=== PATIENT | male | born 1950 | race Caucasian/White ===

== ENCOUNTER 2022-04-28 08:57 | Day surgery (SDC) | payer MEDICARE, SELFPAY ==
[2022-04-28] VITALS (12 sets, daily range): BP systolic 120–190; BP diastolic 61–92; PULSE 62–104; RESP 16; TEMP 36.3–37.2; O2SAT 94–100; BMI 25.8
[2022-04-28] MEDS: LACTATED RINGERS 1000 ML 1,000 ML 100 ML IV (08:00)
[2022-04-28] MEDS: CEFAZOLIN 2 GM INJ IVP (12:10)
[2022-04-28] MEDS: BUPIVACAINE 0.25% 30 ML INJECTION (12:15)
--- NOTE | 2022-04-28 13:14 | PM.GSPRC ---
Operative Note Date of procedure: 04/28/22 Type of Procedure: 1. Laparoscopic right inguinal hernia repair with mesh. Procedure Description: After discussing the risks and benefits of the procedure, the patient signed informed consent.? The operative site was marked and the patient was brought to the operating room and placed on the operating table in supine position.? Care was taken to pad the patient's pressure points.?? The patient was then intubated by anesthesia.?? The operative site was then prepped and draped in the usual sterile fashion.? A time-out was then performed. ? An infraumbilical skin incision was made with a scalpel and subcutaneous tissues were dissected with electrocautery. Anterior sheath was incised with electrocautery and rectus muscle was retracted laterally. Initially, the blunt finger dissection between the layers of abdominal wall was difficult. The space was re-examined again and it appeared that the dissection was between the posterior sheath and peritoneum. The posterior sheath was then grasped and the opening in the posterior sheath was closed with a [id number] 3-0 Vicryl stitch. The correct plane was identified and a 12 mm [employer] dissector system was introduced into the incision and advanced over the posterior sheath. Preperitoneal space was dissected with manually insufflating air under direct visualization. Once the tissues were dissected, the balloon was deflated and removed.? A laparoscopic balloon was placed into preperitoneal space and balloon was inflated. Preperitoneal space was insufflated with air. No bleeding was identified upon examination of preperitoneal space. We then placed two 5 mm ports suprapubically under direct visualization. ? The preperitoneal tissues were bluntly dissected with graspers.? The pubic bone was identified and? cleared from preperitoneal tissue.?? Inferior epigastrics on right?side were retracted towards the abdominal wall.?? Spermatic cord? was identified and dissected circumferentially.? This was done bluntly. The right direct hernia space was identified, and preperitoneal fat was incarcerated in this hernia space. The incarcerated fat was reduced. The peritoneal edge was identified, and there was no evidence of indirect inguinal hernia.??When adequate space was developed for mesh placement, a right sided Parietex? mesh was used and positioned around the spermatic cord. The mesh was tacked medially and laterally with?tacks.? Additional local anesthetic was injected directly into pre-peritoneal space. ? The space was deflated under direct visualization and mesh appeared to be still lying in a good position. The ports were then removed. Anterior sheath was then closed with a running 0-0 vicryl suture. Skin was closed with 4-0 monocryl using subcuticular stitch. Steri strips were applied over the laparoscopic?incisions. ? All counts were correct at the end of the case. Patient tolerated the procedure well and was transferred to PACU without any complications. Implants: Paritex mesh. Anesthesia: GETA Surgeon: Aaron Tolliver MD Estimated blood loss (mL): 5 Condition: stable Disposition: PACU
--- NOTE | 2022-04-28 13:22 | W.ANESCHARGE ---
Anesthesia Charges Start Date/Time Anesthesia Start Date: 04/28/22 Anesthesia Start Time: 12:00 Stop Date/Time Anesthesia Stop Date: 04/28/22 Anesthesia Stop Time: 13:21 Summary Emergency: No Extremes of Age: Over 70-CPT 58506
--- NOTE | 2022-04-28 13:39 | W.ANESCHARGE ---
Anesthesia Charges Start Date/Time Anesthesia Start Date: 04/28/22 Anesthesia Start Time: 12:00 Stop Date/Time Anesthesia Stop Date: 04/28/22 Anesthesia Stop Time: 13:21 Summary Emergency: No Extremes of Age: Over 70-CPT 17395
[2022-04-28] MEDS: HYDROCODONE-ACETAMIN 5-325 MG 1 TAB PO (14:10)
== END 2022-04-28 15:05 | disposition home or self-care (01) ==
PROVIDERS: PCP Family Medicine; Visit Provider Surgery
PROC: (CPT 49650; principal; 2022-04-28 10:15)
DX: K40.90 Unilateral inguinal hernia, without obstruction or gangrene, not specified as recurrent (principal)
CPT/HCPCS: 49650; 00840; 00860; 99100; A9270; C1781; J0330; J0690; J1100; J1170; J1885; J2405; J2704; J2710; J3010; J3490; J7120

== ENCOUNTER 2022-04-28 22:07 | Emergency (ER) | payer MEDICARE, SELFPAY ==
[2022-04-28 22:14] VITALS: BP 137/72; PULSE 71; RESP 18; TEMP 36.9; O2SAT 99; BMI 25.2
--- NOTE | 2022-04-28 22:38 | ED.GENADULT ---
HPI - General Adult General Date Seen: 04/28/22 Chief complaint: Post Op Complication Stated complaint: incision is bleeding from surgery Time Seen by Provider: 04/28/22 22:16 Source: patient and family Mode of arrival: ambulatory Limitations: no limitations History of Present Illness HPI narrative: Patient is a 72-year-old male who had a laparoscopic right inguinal hernia repair done by Dr. Tolliver today. The procedure went well but he comes back this evening with bleeding from his umbilical incision. He has three Steri-Strips that he has bled through and some gauze. He denies pain other than what is expected. He has had no fevers or chills. Related Data Home Medications Medication Instructions Recorded Confirmed aspirin 81 mg capsule 81 mg PO QDAY 03/06/22 04/28/22 atorvastatin 40 mg tablet 40 mg PO QDAY 03/06/22 04/28/22 metoprolol tartrate 25 mg tablet 25 mg PO BID 03/11/22 04/28/22 albuterol sulfate 90 mcg/actuation 2 puff inhalation Q6H PRN 04/01/22 04/28/22 aerosol inhaler naproxen 500 mg tablet 500 mg PO .PRN 04/01/22 04/28/22 nitroglycerin 0.4 mg sublingual 0.4 mg sublingual Q5M PRN 04/01/22 04/28/22 tablet Previous Rx's Medication Instructions Recorded omeprazole 40 mg capsule,delayed 40 mg PO QDAY #30 caps 04/01/22 release hydrocodone 5 mg-acetaminophen 325 1 - 2 tab PO Q6H PRN pain #30 tabs 04/28/22 mg tablet Allergies Allergy/AdvReac Type Severity Reaction Status Date / Time clarithromycin Allergy Unknown Verified 04/28/22 22:16 nickel Allergy Unknown Verified 04/28/22 22:16 Review of Systems Status of ROS: Reports: 6 or more systems reviewed and unremarkable except as noted in History and below [facility] Medical History (Updated 04/28/22 @ 22:39 by Federico Moss MD) CAD (coronary artery disease) Chest pressure Hernia Inguinal hernia Right inguinal hernia Surgical History H/O hand surgery H/O rotator cuff surgery S/P arthroscopic knee surgery S/P CABG x 1 S/P vasectomy Status post left foot surgery Social History (Updated 03/11/22 @ 11:44 by Aaron Tolliver MD) Narrative: Patient is active and does a lot of walking playing golf. 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 Smoking Status: Former smoker What tobacco products do you use: cigarettes Smoking quit date/years: >15 years ago Do you use any of these nicotine containing products: None Second hand tobacco smoke exposure: No How often do you have a drink containing alcohol: never How many standard drinks containing alcohol do you have on a typical day: 1 or 2 How often do you have six or more drinks on one occasion: Never AUDIT-C Alcohol total score: 0 Non-prescribed substance use: denies use Caffeine: Yes (3 CUPS COFFEE DAILY) Little interest or pleasure in doing things: not at all Feeling down, depressed, or hopeless: not at all Exam Narrative: Exam Narrative: On exam he has normal bowel sounds. His lower incisions remained dry. His umbilical incision has bled. I did remove his Steri-Strips and clean the area. There is minimal active bleeding. I then cleaned the area with Betadine and applied some Dermabond over the small incision. There is no further bleeding. Sterile dressing was then applied. Const: Vital Signs, click to edit/add: Vital Signs - 24 hr 04/28/22 22:14 04/28/22 22:43 04/28/22 22:44 Temperature 98.4 F 98.4 F 98.0 F Pulse Rate [Right Pulse Oximeter] 71 71 69 Respiratory Rate 18 18 18 Blood Pressure [Ri ght Upper Arm] 137/72 137/72 125/74 Pulse Oximetry 99 99 Oxygen Delivery Me thod Room Air Room Air Course Vital Signs Vital signs: Initial Vital Signs Temperature 98.4 F 04/28/22 22:14 Temperature Source Temporal Artery Scan 04/28/22 22:14 Pulse Rate 71 04/28/22 22:14 Respiratory Rate 18 04/28/22 22:14 Blood Pressure 137/72 04/28/22 22:14 Blood Pressure Mean 93 04/28/22 22:14 Blood Pressure Position Sitting 04/28/22 22:14 Pulse Oximetry 99 04/28/22 22:14 Oxygen Delivery Method 04/28/22 22:14 Vital Signs Temperature 98.4 F 04/28/22 22:14 Pulse Rate 71 04/28/22 22:14 Respiratory Rate 18 04/28/22 22:14 Blood Pressure 137/72 04/28/22 22:14 Pulse Oximetry 99 04/28/22 22:14 Oxygen Delivery Method 04/28/22 22:14 Temperature 98.0 F 04/28/22 22:44 Pulse Rate 69 04/28/22 22:44 Respiratory Rate 18 04/28/22 22:44 Blood Pressure 125/74 04/28/22 22:44 Pulse Oximetry 99 04/28/22 22:44 Oxygen Delivery Method 04/28/22 22:44 Discharge Plan Discharge Clinical Impression: Post-op bleeding Patient Disposition: Home, Self-Care Condition: Improved Additional Instructions: Keep wound clean and dry until healed. Follow-up with Dr. Tolliver as scheduled. Watch for signs of infection. Prescriptions: No Action atorvastatin 40 mg tablet 40 mg PO QDAY aspirin 81 mg capsule 81 mg PO QDAY metoprolol tartrate 25 mg tablet 25 mg PO BID naproxen 500 mg tablet 500 mg PO .PRN nitroglycerin 0.4 mg tablet, sublingual 0.4 mg sublingual Q5M PRN Rx Instructions: do not exceed 3 doses per episode albuterol sulfate 90 mcg/actuation HFA aerosol inhaler 2 puff inhalation Q6H PRN omeprazole 40 mg capsule,delayed release(DR/EC) 40 mg PO QDAY Qty: 30 5RF hydrocodone-acetaminophen 5-325 mg tablet 1 - 2 tab PO Q6H PRN (Reason: pain) Qty: 30 0RF Follow Up/Referrals: Alfred Rios MD [Primary Care Provider] - Stand Alone Forms: [employer] Info Instructions
[2022-04-28 22:43] VITALS: BP 137/72; PULSE 71; RESP 18; TEMP 36.9
[2022-04-28 22:44] VITALS: BP 125/74; PULSE 69; RESP 18; TEMP 36.7; O2SAT 99
--- OUTSIDE RECORDS SUMMARY | 2022-04-28 22:52 | XMS_ITS | Encounter Summary ---
:1950 Author Organization [facility] Address [address] [facility] [place] [address] Care Team Providers Name Role Phone Alfred Rios MD Primary Care Provider [phone] Alfred Rios MD Unavailable Anthony Ballesteros MD Unavailable Reason for Referral Consultation (Routine: Next available opening) - Pending Review Specialty Diagnoses / Procedures Referred By Contact Refer red To Contact Cardiovascular Disease Diagnoses Coronary artery disease involving [place] coronary artery of [place] heart, unspecified whether angina present Essential hypertension Dyslipidemia Anthony Ballesteros MD [address] [place] [address] Referral ID Status Reason Start Date Expiration Date Visits V isits Requested Authorized [id number] Pending 01/29/2022 01/29/2023 1 1 Review Reason for Visit Reason Comments Coronary Artery Disease Hyperlipidemia Encounter Details Date Type Department Care Team Description 01/29/2022 Office Visit Anthony Shrestha a rtery disease involving [place] coronary artery of [place] heart, unspecified whether angina present (Primary Dx); Juan C Bernal MD Essential hypertension; [facility] e [address] Dyslipidemia [address] [place] [address] [place], [place] [phone] [id number] (Work) [phone] Social History Tobacco Use Types Packs/Day Years Used Date Smoking Tobacco: Former Cigarettes 1 35 Quit : 10/22/1999 Smokeless Tobacco: Never Alcohol Use Standard Drinks/Week Comments Yes 0 (1 standard drink = 0.6 oz pure alcoho l) One beer most days. Sex Assigned at Date Recorded Male 12/31/2020 1:31 PM CDT COVID-19 Exposure Response Date Recorded In the last 10 days, have you been in contact with No / Unsu re 01/29/2022 7:59 AM CDT someone who was confirmed or suspected to have Coronavirus/COVID-19? documented as of this encounter Last Filed Vital Signs Vital Sign Reading Time Taken Comments Blood Pressure 138/72 01/29/2022 8:05 AM CDT Pulse 60 01/29/2022 8:05 AM CDT Temperature - - Respiratory Rate - - Oxygen Saturation - - Inhaled Oxygen Concentration - - Weight 72.1 kg (159 lb) 01/29/2022 8:05 AM CDT Height 167.6 cm (5' 6) 01/29/2022 8:05 AM CDT Body Mass Index 25.66 01/29/2022 8:05 AM CDT documented in this encounter Progress Notes Anthony Ballesteros MD - 01/29/2022 10:08 AM CDT Service Date: 01/29/2022 HISTORY OF PRESENT ILLNESS: Russel Billingsley, a 71-year-old man with coronary artery disease, atherosclerotic peripheral vascular disease and dyslipidemia, was seen today at your request for followup. Since last seen 1 year ago, the patient continues to experience episodes of chest heaviness that occur primarily with exertion but have occasional lyoccurred at rest. He thinks the symptoms have worsened slightly since we last saw him. We have previously evaluated his chest discomfort with stress tests, most recently in 09/2019 that showed good exercise tolerance to 10.9 METs with no ischemia and a normal ejection fraction. At the time of his last visit I also explained that even with a negative nuclear stress test, we cannot entirely exclude a lesion that might benefit from revascularization. The patient really has not tried nitroglycerin for his symptoms. PAST MEDICAL HISTORY: 1. Atherosclerotic peripheral vascular disease -- moderate narrowing in right internal carotid artery, followed by Dr. Cadet. 2. Coronary artery disease. a. Presentation with chest pain and abnormal stress test 2014. b. Bypass surgery with RIVAS graft to LAD, moderate narrowing noted in right coronary managed medically. No significant narrowing in left main or circumflex. c. Negative nuclear stress test 2019 with good exercise tolerance and no objective signs of ischemia. 3. Dyslipidemia. PHYSICAL EXAMINATION: GENERAL: Exam today demonstrates a very pleasant, cooperative and intelligent 71-year-old man. VITAL SIGNS: His blood pressure was 138/72, his heart rate 60. His height is 1.7 meters, his weight is 70 kg, BMI 25. RESPIRATORY: His lungs are clear to percussion and auscultation. CARDIOVASCULAR: Shows a normal S1 with a normal S2. There is no S3. There is no murmur, rub or click. His pulses are full throughout. MEDICATIONS: 1. Aspirin 81 daily. 2. Atorvastatin 40 daily. 3. Metoprolol 25 mg b.i.d. 4. Nitroglycerin sublingual p.r.n. LABORATORY STUDIES: His most recent LDL cholesterol 60. Most recent creatinine 1.04. ASSESSMENT: The cause for Mr. Billingsley's chest discomfort symptoms are not entirely clear. A nuclear stress test in 2019 showed no ischemia with good exercise tolerance and the patient has been free of major adverse cardiac events since then. I discussed the options of invasive diagnostic coronary and graft angiography, continued observation with no change in therapy, empiric addition of antianginal medication or a nuclear stress test. The patient would prefer not to add any more medications. His bloodpressure and lipid profiles are normal. After a long discussion today, we elected to proceed with a nuclear stress test to help make any decisions about invasive evaluation. RECOMMENDATIONS: 1. Continue present medical therapy. 2. Nuclear stress test in the near future to assess for ischemia. If significant ischemia is seen, consider angiography. If not, we will consider empiric addition of another antianginal drug such as Ranexa. 3. Plan to follow up in 1 year. We greatly appreciate the opportunity to care for your patient, Mr. Russel Billingsley. Anthony Ballesteros MD cc: Alfred Rios MD [facility] [address], [address] [place] [address] Anthony Ballesteros MD MT: garret Name: RUSSEL BILLINGSLEY MRN: [id number] Account: [id number] : 1950 Service Date: 01/29/2022 Document: [id number] Anthony Ballesteros MD - 01/29/2022 8:00 AM CDT HISTORY OF PRESENT ILLNESS: Still has chest pressure, both with and without activity. Orders this Visit: No orders of the defined types were placed in this encounter. No orders of the defined types were placed in this encounter. Medications Discontinued During This Encounter Medication Reason ??? acetaminophen 650 MG TABS Stopped by Patient No diagnosis found. CURRENT MEDICATIONS: Current Outpatient Medications Medication Sig Dispense Refill ??? albuterol (PROAIR HFA/PROVENTIL HFA/VENTOLIN HFA) 108 (90 Base) MCG/ACT inhaler Inhale 2 puffs into the lungs every 6 hours 1 Inhaler 1 ??? aspirin 81 MG chewable tablet Take 1 tablet (81 mg) by mouth daily 30 tablet 12 ??? atorvastatin (LIPITOR) 40 MG tablet Take 1 tablet (40 mg) by mouth daily 90 tablet 3 ??? metoprolol tartrate (LOPRESSOR) 25 MG tablet TAKE 1 TABLET BY MOUTH TWICE A DAY 180 tablet 2 ??? naproxen (NAPROSYN) 500 MG tablet TAKE 1 TABLET (500 MG) BY MOUTH 2 TIMES DAILY NEEDED FOR MODERATE PAIN 60 tablet 1 ??? nitroGLYcerin (NITROSTAT) 0.4 MG sublingual tablet For chest pain place 1 tablet under the tongue every 5 minutes for 3 doses. If symptoms persist 5 minutes after 1st dose call 911. 25 tablet 0 ALLERGIES Allergies Allergen Reactions ??? Nickel Rash PAST MEDICAL, SURGICAL, FAMILY, SOCIAL HISTORY: History was reviewed and updated as needed, see medical record. Review of Systems: A 12-point review of systems was completed, see medical record for detailed review of systems information. Physical Exam: Vitals: BP 138/72 Pulse 60 Ht 1.676 m (5' 6) Wt 72.1 kg (159 lb) BMI 25.66 kg/m?? Constitutional: Skin: Head: Eyes: ENT: Neck: Chest: Cardiac: Abdomen: Vascular: Extremities and Back: Neurological: ASSESSMENT: cause for symptoms still not entirely clear, but after long discussion has elected for stress test ? RECOMMENDATIONS: Stress nuclear test If significant ischemia would consider CAG graft angiogram if patient willing HISTORY OF PRESENT ILLNESS: Chest pain Orders this Visit: No orders of the defined types were placed in this encounter. No orders of the defined types were placed in this encounter. Medications Discontinued During This Encounter Medication Reason ??? acetaminophen 650 MG TABS Stopped by Patient Encounter Diagnoses Name Primary? Coronary artery disease involving [place] coronary artery of [place] heart, unspecified whether angina present Yes ??? Essential hypertension ??? Dyslipidemia CURRENT MEDICATIONS: Current Outpatient Medications Medication Sig Dispense Refill ??? albuterol (PROAIR HFA/PROVENTIL HFA/VENTOLIN HFA) 108 (90 Base) MCG/ACT inhaler Inhale 2 puffs into the lungs every 6 hours 1 Inhaler 1 ??? aspirin 81 MG chewable tablet Take 1 tablet (81 mg) by mouth daily 30 tablet 12 ??? atorvastatin (LIPITOR) 40 MG tablet Take 1 tablet (40 mg) by mouth daily 90 tablet 3 ??? metoprolol tartrate (LOPRESSOR) 25 MG tablet TAKE 1 TABLET BY MOUTH TWICE A DAY 180 tablet 2 ??? naproxen (NAPROSYN) 500 MG tablet TAKE 1 TABLET (500 MG) BY MOUTH 2 TIMES DAILY NEEDED FOR MODERATE PAIN 60 tablet 1 ??? nitroGLYcerin (NITROSTAT) 0.4 MG sublingual tablet For chest pain place 1 tablet under the tongue every 5 minutes for 3 doses. If symptoms persist 5 minutes after 1st dose call 911. 25 tablet 0 ALLERGIES Allergies Allergen Reactions ??? Nickel Rash PAST MEDICAL, SURGICAL, FAMILY, SOCIAL HISTORY: History was reviewed and updated as needed, see medical record. Review of Systems: A 12-point review of systems was completed, see medical record for detailed review of systems information. Physical Exam: Vitals: BP 138/72 Pulse 60 Ht 1.676 m (5' 6) Wt 72.1 kg (159 lb) BMI 25.66 kg/m?? Constitutional: Skin: Head: Eyes: ENT: Neck: Chest: Cardiac: Abdomen: Vascular: Extremities and Back: Neurological: ASSESSMENT: need assessment ? RECOMMENDATIONS: See above Recent Lab Results: LIPID RESULTS: Lab Results Component Value Date CHOL 135 07/03/2021 CHOL 134 05/24/2020 HDL 65 07/03/2021 HDL 62 05/24/2020 LDL 60 07/03/2021 LDL 60 05/24/2020 TRIG 51 07/03/2021 TRIG 59 05/24/2020 CHOLHDLRATIO 3.3 04/16/2015 LIVER ENZYME RESULTS: Lab Results Component Value Date AST 22 04/16/2015 ALT 31 04/16/2015 CBC RESULTS: Lab Results Component Value Date WBC 9.0 05/25/2015 RBC 4.05 (L) 05/25/2015 HGB 13.0 (L) 05/25/2015 HCT 36.5 (L) 05/25/2015 MCV 90 05/25/2015 MCH 32.1 05/25/2015 MCHC 35.6 05/25/2015 RDW 12.8 05/25/2015 PLT 175 05/25/2015 BMP RESULTS: Lab Results Component Value Date NA 138 07/03/2021 NA 139 05/24/2020 POTASSIUM 4.4 07/03/2021 POTASSIUM 4.8 05/24/2020 CHLORIDE 107 07/03/2021 CHLORIDE 108 05/24/2020 CO2 25 07/03/2021 CO2 28 05/24/2020 ANIONGAP 6 07/03/2021 ANIONGAP 3 05/24/2020 GLC 105 (H) 07/03/2021 GLC 100 (H) 05/24/2020 BUN 22 07/03/2021 BUN 18 05/24/2020 CR 1.04 07/03/2021 CR 0.99 05/24/2020 GFRESTIMATED 77 07/03/2021 GFRESTIMATED 77 05/24/2020 GFRESTBLACK 89 05/24/2020 DAJA 9.1 07/03/2021 DAJA 9.3 05/24/2020 A1C RESULTS: Lab Results Component Value Date A1C 6.0 05/23/2015 INR RESULTS: Lab Results Component Value Date INR 1.15 (H) 05/22/2015 INR 1.23 (H) 05/22/2015 We greatly appreciate the opportunity to be involved in the care of your patient, Russel Billingsley. Sincerely, Anthony Ballesteros MD? CC Referred Self, No address on file ? Recent Lab Results: LIPID RESULTS: Lab Results Component Value Date CHOL 135 07/03/2021 CHOL 134 05/24/2020 HDL 65 07/03/2021 HDL 62 05/24/2020 LDL 60 07/03/2021 LDL 60 05/24/2020 TRIG 51 07/03/2021 TRIG 59 05/24/2020 CHOLHDLRATIO 3.3 04/16/2015 LIVER ENZYME RESULTS: Lab Results Component Value Date AST 22 04/16/2015 ALT 31 04/16/2015 CBC RESULTS: Lab Results Component Value Date WBC 9.0 05/25/2015 RBC 4.05 (L) 05/25/2015 HGB 13.0 (L) 05/25/2015 HCT 36.5 (L) 05/25/2015 MCV 90 05/25/2015 MCH 32.1 05/25/2015 MCHC 35.6 05/25/2015 RDW 12.8 05/25/2015 PLT 175 05/25/2015 BMP RESULTS: Lab Results Component Value Date NA 138 07/03/2021 NA 139 05/24/2020 POTASSIUM 4.4 07/03/2021 POTASSIUM 4.8 05/24/2020 CHLORIDE 107 07/03/2021 CHLORIDE 108 05/24/2020 CO2 25 07/03/2021 CO2 28 05/24/2020 ANIONGAP 6 07/03/2021 ANIONGAP 3 05/24/2020 GLC 105 (H) 07/03/2021 GLC 100 (H) 05/24/2020 BUN 22 07/03/2021 BUN 18 05/24/2020 CR 1.04 07/03/2021 CR 0.99 05/24/2020 GFRESTIMATED 77 07/03/2021 GFRESTIMATED 77 05/24/2020 GFRESTBLACK 89 05/24/2020 DAJA 9.1 07/03/2021 DAJA 9.3 05/24/2020 A1C RESULTS: Lab Results Component Value Date A1C 6.0 05/23/2015 INR RESULTS: Lab Results Component Value Date INR 1.15 (H) 05/22/2015 INR 1.23 (H) 05/22/2015 We greatly appreciate the opportunity to be involved in the care of your patient, Russel Billingsley. SincerelAnthony johansen MD? CC Referred Self, No address on file ? documented in this encounter Plan of Treatment Scheduled Referrals Name Type Priority Associated Diagnoses Order S chedule Follow-Up with Referral Routine: Next Coronary artery Expected: Cardiology available opening disease involving 01/29 [place] coronary (Approximate ), artery of [place] Expires: heart, unspecified 3 whether angina present Essential hypertension Dyslipidemia documented as of this encounter Visit Diagnoses Diagnosis Coronary artery disease involving [place] coronary artery of [place] heart, unspecified whether angina present - Primary Essential hypertension Unspecified essential hypertension Dyslipidemia Other and unspecified hyperlipidemia documented in this encounter Additional Health Concerns Assessment Noted Time PHQ-9 Depression Total Score: 3 05/25/2020 7: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
--- OUTSIDE RECORDS SUMMARY | 2022-04-28 22:52 | XMS_ITS | Encounter Summary ---
:1950 Author Organization [place] Address [address] [place] [address] Care Team Providers Name Role Phone Alfred Rios MD Primary Care Provider [phone] Alfred Rios MD Unavailable Anthony Ballesteros MD Unavailable Encounter Details Date Type Department Care Team Description 07/03/2021 Travel Social History Tobacco Use Types Packs/Day Years Used Date Smoking Tobacco: Former Cigarettes 1 35 Quit : 10/22/1999 Smokeless Tobacco: Never Alcohol Use Standard Drinks/Week Comments Yes 0 (1 standard drink = 0.6 oz pure alcoho l) One beer most days. Sex Assigned at Date Recorded Male 12/31/2020 1:31 PM CDT COVID-19 Exposure Response Date Recorded In the last month, have you been in contact with No / Unsure 07/03/2021 8:24 AM CONFERENCE SERVICES COORDINATOR someone who was confirmed or suspected to have Coronavirus / COVID-19? documented as of this encounter Plan of Treatment Not on filedocumented as of this encounter Visit Diagnoses Not on filedocumented in this encounter Additional Health Concerns Assessment Noted Time PHQ-9 Depression Total Score: 3 05/25/2020 7:02 AM CONFERENCE SERVICES COORDINATOR documented as of this encounter Care Teams Set Up Worker Relationship Specialty Start Date End Date Alfred Rios, PCP - General Family Practice 04/18/15 Alfred Rios, Assigned PCP 09/01/20 [address] [place] [address] Anthony Ballesteros, Assigned Heart and 12/22/20 Vascular Provider [address] [place] [address] documented as of this encounter
--- OUTSIDE RECORDS SUMMARY | 2022-04-28 22:52 | XMS_ITS | Encounter Summary ---
:1950 Author Organization [place] Address Formerly [facility], [address] [facility] [place] [address] Care Team Providers Name Role Phone Alfred Rios MD Primary Care Provider [phone] Alfred Rios MD Unavailable Anthony Ballesteros MD Unavailable Reason for Visit Reason Comments Medication Refill Encounter Details Date Type Department Care Team Description 10/24/2021 Refill [facility] Alfred Rios, Medication Refill [place] [address] [place] [address] [place] [id number] (Wo rk) Social History Tobacco Use Types Packs/Day Years Used Date Smoking Tobacco: Former Cigarettes 1 35 Quit : 10/22/1999 Smokeless Tobacco: Never Alcohol Use Standard Drinks/Week Comments Yes 0 (1 standard drink = 0.6 oz pure alcoho l) One beer most days. Sex Assigned at Date Recorded Male 12/31/2020 1:31 PM CDT documented as of this encounter Miscellaneous Notes Telephone Encounter - Beba Valadez RN - 10/24/2021 2:43 PM CDT Routing refill request to provider for review/approval because: Labs out of range: CBC Labs not current: ALT, AST Outside of age range Beba Valadez, RN on 10/24/2021 at 2:44 PM documented in this encounter Plan of Treatment Not on filedocumented as of this encounter Visit Diagnoses Diagnosis Bilateral hip pain Pain in joint, pelvic region and thigh documented in this encounter Additional Health Concerns Assessment Noted Time PHQ-9 Depression Total Score: 3 05/25/2020 7:02 AM HEADLIGHT ADJUSTER documented as of this encounter Care Teams Licensed Sales Assistant Relationship Specialty Start Date End Date Alfred Rios, PCP - General Family Practice 04/18/15 Alfred Rios, Assigned PCP 09/01/20 [address] [address] [address] Anthony Ballesteros, Assigned Heart and 12/22/20 Vascular Provider [address] [place] [address] documented as of this encounter
--- OUTSIDE RECORDS SUMMARY | 2022-04-28 22:52 | XMS_ITS | Encounter Summary ---
:1950 Author Organization [place] Address [address] [place] [address] Care Team Providers Name Role Phone Alfred Rios MD Primary Care Provider [phone] Alfred Rios MD Unavailable Anthony Ballesteros MD Unavailable Encounter Details Date Type Department Care Team Description 02/10/2022 Travel Social History Tobacco Use Types Packs/Day [...] in contact with No / Unsu re 02/10/2022 7:55 AM CDT someone who was confirmed or suspected to have Coronavirus/COVID-19? documented as of this encounter Plan of Treatment Not on filedocumented as of this encounter Visit Diagnoses Not on filedocumented in this encounter Additional Health Concerns Assessment Noted Time PHQ-9 Depression Total Score: 3 05/25/2020 7:02 AM IRON GUARDRAIL INSTALLER documented as of this encounter Care Teams Revenue Investigator Relationship Specialty Start Date End Date Alfred Rios, PCP - General Family Practice 04/18/15 Alfred Rios Assigned PCP 09/01/20 [address] [place] [address] Anthony Ballesteros, Assigned Heart and 12/22/20 Vascular Provider [address] [place] [address] documented as of this encounter
--- OUTSIDE RECORDS SUMMARY | 2022-04-28 22:52 | XMS_ITS | Encounter Summary ---
:1950 Author Organization [place] Address [facility] [place] [address] Care Team Providers Name Role Phone Alfred Rios MD Primary Care Provider [phone] Alfred Rios MD Unavailable Anthony Ballesteros MD Unavailable Reason for Visit Reason Comments Medication Refill Encounter Details Date Type Department Care Team Description 11/16/2021 Refill [facility] Alfred Rios, Medication Refill [place] [address] [address] [place] [address] [place] 2017368 (Wo rk) Social History Tobacco Use Types Packs/Day Years Used Date Smoking Tobacco: Former Cigarettes 1 35 Quit : 10/22/1999 Smokeless Tobacco: Never Alcohol Use Standard Drinks/Week Comments Yes 0 (1 standard drink = 0.6 oz pure alcoho l) One beer most days. Sex Assigned at Date Recorded Male 12/31/2020 1:31 PM CDT documented as of this encounter Miscellaneous Notes Telephone Encounter - Brionna Yates RN - 11/18/2021 1:39 PM CDT Prescription approved per [facility] Refill Protocol. Brionna Yates RN, BSN [facility] documented in this encounter Plan of Treatment Not on filedocumented as of this encounter Visit Diagnoses Diagnosis Essential hypertension, benign documented in this encounter Additional Health Concerns Assessment Noted Time PHQ-9 Depression Total Score: 3 05/25/2020 7:02 AM ASSEMBLER INSTALLER GENERAL documented as of this encounter Care Teams Inclusion Internship Relationship Specialty Start Date End Date Alferd Rios, PCP - General Family Practice 04/18/15 Alfred Rios, Assigned PCP 09/01/20 [address] [address] [address] Anthony Ballesteros, Assigned Heart and 12/22/20 Vascular Provider [address] [place] [id number] documented as of this encounter
--- OUTSIDE RECORDS SUMMARY | 2022-04-28 22:52 | XMS_ITS | Encounter Summary ---
:1950 Author Organization [place] Address [address] [place] [address] Care Team Providers Name Role Phone Alfred Rios MD Primary Care Provider [phone] Alfred Rios MD Unavailable Anthony Ballesteros MD Unavailable Encounter Details Date Type Department Care Team Description 01/29/2022 Travel Social History Tobacco Use Types Packs/Day [...] Depression Total Score: 3 05/25/2020 7:02 AM CYBER SECURITY ANALYST documented as of this encounter Care Teams Patrol Supervisor Relationship Specialty Start Date End Date Alfred Rios, PCP - General Family Practice 04/18/15 Alfred Rios Assigned PCP 09/01/20 [address] [place] [address] Anthony Ballesteros, Assigned Heart and 12/22/20 Vascular Provider [address] [place] [address] documented as of this encounter
--- OUTSIDE RECORDS SUMMARY | 2022-04-28 22:52 | XMS_ITS | Encounter Summary ---
:1950 Author Organization [place] Address [address] [place] [address] Care Team Providers Name Role Phone Alfred Rios MD Primary Care Provider [phone] Alfred Rios MD Unavailable Anthony Ballesteros MD Unavailable Encounter Details Date Type Department Care Team Description 01/26/2022 Travel Social History Tobacco Use Types Packs/Day [...] in contact with No / Unsu re 01/26/2022 8:32 PM CDT someone who was confirmed or suspected to have Coronavirus/COVID-19? documented as of this encounter Plan of Treatment Not on filedocumented as of this encounter Visit Diagnoses Not on filedocumented in this encounter Additional Health Concerns Assessment Noted Time PHQ-9 Depression Total Score: 3 05/25/2020 7:02 AM MATERIAL ENGINEER documented as of this encounter Care Teams Drop Forger Relationship Specialty Start Date End Date Alfred Rios, PCP - General Family Practice 04/18/15 Alfred Rios Assigned PCP 09/01/20 [address] [place] [address] Anthony Ballesteros, Assigned Heart and 12/22/20 Vascular Provider [address] [place] [address] documented as of this encounter
--- OUTSIDE RECORDS SUMMARY | 2022-04-28 22:52 | XMS_ITS | Encounter Summary ---
:1950 Author Organization [place] Address [address] [facility] [place] [address] Care Team Providers Name Role Phone Alfred Rios MD Primary Care Provider [phone] Alfred Rios MD Unavailable Anthony Ballesteros MD Unavailable Reason for Visit Reason Comments HCC refresh needed Encounter Details Date Type Department Care Team Description 03/23/2022 Office Visit [facility] Mariana Ivey [facility] Zaida RODRIGUEZ CNP ENCOUNTER--DISREGARD [address] (Primary Dx) [place] [facility] [place] [address] [phone] Social History Tobacco Use Types Packs/Day Years Used Date Smoking Tobacco: Former Cigarettes 1 35 Quit : 10/22/1999 Smokeless Tobacco: Never Alcohol Use Standard Drinks/Week Comments Yes 0 (1 standard drink = 0.6 oz pure alcoho l) One beer most days. Sex Assigned at Date Recorded Male 12/31/2020 1:31 PM CDT documented as of this encounter Progress Notes Mariana Ivey APRN CNP - 03/23/2022 1:00 PM CDT Patient cancelled appointment Mariana Ivey CNP documented in this encounter Plan of Treatment Not on filedocumented as of this encounter Visit Diagnoses Diagnosis ERRONEOUS ENCOUNTER--DISREGARD - Primary documented in this encounter Additional Health Concerns Assessment Noted Time PHQ-9 Depression Total Score: 3 05/25/2020 7:02 AM COLLETER documented as of this encounter Care Teams Pleating Machine Operator Relationship Specialty Start Date End Date Alfred Rios, PCP - General Family Practice 04/18/15 Alfred Rios, Assigned PCP 09/01/20 [address] [address] [id number] Anthony Ballesteros, Assigned Heart and 12/22/20 Vascular Provider [address] [place] [address] documented as of this encounter
--- OUTSIDE RECORDS SUMMARY | 2022-04-28 22:52 | XMS_ITS | Encounter Summary ---
:1950 Author Organization [place] Address [facility] [place] [address] Care Team Providers Name Role Phone Alfred Rios MD Primary Care Provider [phone] Alfred Rios MD Unavailable Anthony Ballesteros MD Unavailable Reason for Visit Reason Comments Medication Refill Encounter Details Date Type Department Care Team Description 03/08/[address] [facility] Alfred Rios, Medication Refill [place] [address] [address] [place] [address] [place] [id number] (Wo rk) Social History Tobacco Use Types Packs/Day Years Used Date Smoking Tobacco: Former Cigarettes 1 35 Quit : 10/22/1999 Smokeless Tobacco: Never Alcohol Use Standard Drinks/Week Comments Yes 0 (1 standard drink = 0.6 oz pure alcoho l) One beer most days. Sex Assigned at Date Recorded Male 12/31/2020 1:31 PM CDT documented as of this encounter Miscellaneous Notes Telephone Encounter - Taylor Iglesias RN - 03/10/2021 12:24 PM CDT Routing refill request to provider for review/approval because: Failed protocol for naproxen - due for ALT, AST, cbc and due to age documented in this encounter Plan of Treatment Not on filedocumented as of this encounter Visit Diagnoses Diagnosis Bilateral hip pain Pain in joint, pelvic region and thigh documented in this encounter Additional Health Concerns Assessment Noted Time PHQ-9 Depression Total Score: 3 05/25/2020 7:02 AM VERTICA ARCHITECT documented as of this encounter Care Teams Unemployment Inspector Relationship Specialty Start Date End Date Alfred Rios, PCP - General Family Practice 04/18/15 Alfred Rios, Assigned PCP 09/01/20 [address] [address] [address] Anthony Ballesteros, Assigned Heart and 12/22/20 Vascular Provider [address] [place] [id number] documented as of this encounter
--- OUTSIDE RECORDS SUMMARY | 2022-04-28 22:52 | XMS_ITS | Encounter Summary ---
:1950 Author Organization [place] Address [facility] [place] [address] Care Team Providers Name Role Phone Alfred Rios MD Primary Care Provider [phone] Alfred Rios MD Unavailable Anthony Ballesteros MD Unavailable Reason for Visit Reason Comments Medication Refill Encounter Details Date Type Department Care Team Description 03/01/[address] [facility] Nikki Duque, Medication Refill [place] [address] [address] [place] [address] [place] [id number] (Wo rk) Social History Tobacco Use Types [...] have Coronavirus/COVID-19? documented as of this encounter Miscellaneous Notes Telephone Encounter - Beba Valadez RN - 03/02/2022 11:38 AM CDT Last prescribed 4 months ago. Prescription approved per [facility] Refill Protocol. 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
--- OUTSIDE RECORDS SUMMARY | 2022-04-28 22:52 | XMS_ITS | Encounter Summary ---
:1950 Author Organization [place] Address [address] [place] [address] Care Team Providers Name Role Phone Alfred Rios MD Primary Care Provider [phone] Alfred Rios MD Unavailable Anthony Ballesteros MD Unavailable Reason for Visit Diagnostic Imaging NM (Routine) - Closed Specialty Diagnoses / Procedures Referred By Contact Refer red To Contact Diagnoses Coronary artery disease involving barrow coronary artery of barrow heart, unspecified whether angina present Essential hypertension Dyslipidemia Anthony Ballesteros MD Procedures NM MPI w Lexiscan NM Adenosine stress test (nuc card) [address] [place] [address] Referral ID Status Reason Start Date Expiration Date Visits Requ ested Visits Authorized [id number] Closed 01/29/2022 01/29/2023 4 4 Encounter Details Date Type Department Care Team Description 02/10/2022 Hospital Encounter [facility] Anthony Ballesteros MD [address] [place], [place] [address] [place] [address] [phone] (Wo rk) Social History Tobacco Use Types [...] have Coronavirus/COVID-19? documented as of this encounter Medications at Time of Discharge Medication Sig Dispensed Refills Start Date End Date albuterol (PROAIR INHALE 2 PUFFS INTO 8.5 g 1 2 HFA/PROVENTIL THE LUNGS EVERY 6 HFA/VENTOLIN HFA) 108 (90 HOURS Base) MCG/ACT inhalerIndications: Mild intermittent asthma without complication aspirin 81 MG chewable Take 1 tablet (81 30 tablet 12 2015 tabletIndications: mg) by mouth daily Chronic ischemic heart disease atorvastatin (LIPITOR) 40 Take 1 tablet (40 90 tablet 3 MG tabletIndications: mg) by mouth daily Hyperlipidemia with target LDL less than 100 metoprolol tartrate TAKE 1 TABLET BY 180 tablet 2 11/18/2021 (LOPRESSOR) 25 MG MOUTH TWICE A DAY tabletIndications: Essential hypertension, benign naproxen (NAPROSYN) 500 TAKE 1 TABLET (500 60 tablet 1 10/10 MG tabletIndications: MG) BY MOUTH 2 Bilateral hip pain TIMES DAILY NEEDED FOR MODERATE PAIN nitroGLYcerin (NITROSTAT) For chest pain 25 tablet 0 202103/02/[address] 1 tablet tabletIndications: under the tongue Coronary artery disease every 5 minutes for involving coronary bypass 3 doses. If graft of barrow heart symptoms persist 5 without angina pectoris minutes after 1st dose call 911. documented as of this encounter Plan of Treatment Not on filedocumented as of this encounter Procedures Procedure Name Priority Date/Time Associated Diagnosis Comme nts NM MPI WITH Routine 02/10/2022 1:38 PM Coronary artery Result s for this LEXISCAN CDT disease involving procedure are in barrow coronary the results artery of barrow section. heart, unspecified whether angina present Essential hypertension Dyslipidemia documented in this encounter Results NM MPI w Lexiscan (02/10/2022 1:38 PM CDT) [facility] gist Method Time Signature Target HR 148 RADIANT Baseline 172 RADIANT Systolic BP Baseline 78 RADIANT Diastolic BP Last Stress 155 RADIANT Systolic BP Last Stress 65 RADIANT Diastolic BP Baseline HR 63 bpm RADIANT Max HR 93 RADIANT Max Predicted HR 63 % RADIANT Rate Pressure 14,415.0 RADIANT Product BP 68 mmHg RADIANT Left Ventricular 70 % RADIANT EF Anatomical Region Laterality Modality Chest Nuclear Medicine Specimen (Source) Anatomical Location Collection Method / Collectio n Time Received Time / Laterality Volume Narrative 02/10/2022 3:38 PM CDT ?The nuclear stress test is negative for inducible myocardial ischemia or infarction. The left ventricular ejec tion fraction at rest is 68%. ??The left ventricular ejection fraction at st ress is 70%. Left ventricular function is normal. ?A prior study was conducted on 09/11/2019. ??This study has no change when compared with the prior study. Stress Findings A pharmacologic stress test was performe d following a supine Lexiscan protocol using 0.4 mg of intravenous regadenoson administered over 10 seconds under the supervision of Dr. Garcia. The patient reported dyspnea during the stress test. ECG Baseline electrocardiogram demonstrates sinus rhythm. The stress electrocardiogram is negative for inducible ischemic EKG changes. Isotope Administration Nuclear imaging was accomplished using a one day protocol with 32.4 mCi of technetium tetrofosmin injected at the completion of Lexiscan infusion on 02/10/2022 and 11 mCi of technetium tetrofosmin at rest on 02/10/2022. Nuclear Study Quality The quality assurance group leader images demonstrate a pical thinning. Final image quality is satisfactory. Perfusion Defect The nuclear stress test is negative for inducible myocardial ischemia or infarction. The left ventricular ejection fraction at rest is 68%. The left ventricular ejection fraction at stress is 70%. Left ventricular function is normal. Nuclear Prior Study A prior study was conducted on 09/11/2019. This study has no change when compared with the prior study. Perfusion Scoring Stress Summed Score: 0 Percent Normal: 0.00% The left ventricular perfusion is normal . Perfusion Scoring Resting Summed Score: 0 Percent Normal: 0.00% The left ventricular perfusion is normal . Perfusion Scores: SRS Score: 0 Percentag e Abnormal: 0.00% Perfusion Scores: SSS Score: 0 Percentag e Abnormal: 0.00% Perfusion Scores: SDS Score: 0 Percentag e Abnormal: 0.00% Wall Motion Score Index: 1.00 The left ventricular wall motion is norm al. Anthony Ballesteros MD IMG NM ORDERABLES documented in this encounter Visit Diagnoses Not on filedocumented in this encounter Additional Health Concerns Assessment Noted Time PHQ-9 Depression Total Score: 3 05/25/2020 7:02 AM REEL MAN documented as of this encounter Care Teams Seed Sales Manager Relationship Specialty Start Date End Date Alfred Rios, PCP - General Family Practice 04/18/15 Alfred Rios, Assigned PCP 09/01/20 [address] [address] [id number] Anthony Ballesteros, Assigned Heart and 12/22/20 Vascular Provider [address] [place] [address] documented as of this encounter
--- OUTSIDE RECORDS SUMMARY | 2022-04-28 22:52 | XMS_ITS | Encounter Summary ---
:1950 Author Organization [place] Address [address] [place] [address] Care Team Providers Name Role Phone Alfred Rios MD Primary Care Provider [phone] Alfred Rios MD Unavailable Anthony Ballesteros MD Unavailable Encounter Details Date Type Department Care Team Description 11/25/2021 Travel Social History Tobacco Use Types Packs/Day [...] in contact with No / Unsu re 11/25/2021 4:20 PM CDT someone who was confirmed or suspected to have Coronavirus/COVID-19? documented as of this encounter Plan of Treatment Not on filedocumented as of this encounter Visit Diagnoses Not on filedocumented in this encounter Additional Health Concerns Assessment Noted Time PHQ-9 Depression Total Score: 3 05/25/2020 7:02 AM BILINGUAL INTERPRETER documented as of this encounter Care Teams Chaser Helper Relationship Specialty Start Date End Date Alfred Rios, PCP - General Family Practice 04/18/15 Alfred Rios Assigned PCP 09/01/20 [address] [place] [address] Anthony Ballesteros, Assigned Heart and 12/22/20 Vascular Provider [address] [place] [address] documented as of this encounter
--- OUTSIDE RECORDS SUMMARY | 2022-04-28 22:52 | XMS_ITS | Encounter Summary ---
:1950 Author Organization [place] Address Counts include 234 beds at the [facility] [place] [address] Care Team Providers Name Role Phone Alfred Rios MD Primary Care Provider [phone] Alfred Rios MD Unavailable Anthony Ballesteros MD Unavailable Reason for Visit Reason Onset Date Comments Refill Request 05/20/2021 Metoprolol Encounter Details Date Type Department Care Team Description 05/20/2021 MyC Refill [facility] Alfred Rios [facility] MD Nicholas (Metoprolol) [address] [place] [phone] Social History Tobacco Use Types Packs/Day Years Used Date Smoking Tobacco: Former Cigarettes 1 35 Quit : 10/22/1999 Smokeless Tobacco: Never Alcohol Use Standard Drinks/Week Comments Yes 0 (1 standard drink = 0.6 oz pure alcoho l) One beer most days. Sex Assigned at Date Recorded Male 12/31/2020 1:31 PM CDT documented as of this encounter Miscellaneous Notes Telephone Encounter - Regina Burrows RN - 05/21/2021 4:29 PM CST Duplicate request. LER BRAKE LINING documented in this encounter Plan of Treatment Not on filedocumented as of this encounter Visit Diagnoses Diagnosis Essential hypertension, benign documented in this encounter Additional Health Concerns Assessment Noted Time PHQ-9 Depression Total Score: 3 05/25/2020 7:02 AM DRILLER BRAKE LINING documented as of this encounter Care Teams Artificial Breeding Distributor Relationship Specialty Start Date End Date Alfred Rios, PCP - General Family Practice 04/18/15 Alfred Rios, Assigned PCP 09/01/20 [address] [address] [address] Anthony Ballesteros, Assigned Heart and 12/22/20 Vascular Provider [address] [place] [address] documented as of this encounter
--- OUTSIDE RECORDS SUMMARY | 2022-04-28 22:52 | XMS_ITS | Encounter Summary ---
:1950 Author Organization [place] Address [address] [facility] [place] [address] Care Team Providers Name Role Phone Alfred Rios MD Primary Care Provider [phone] Alfred Rios MD Unavailable Anthony Ballesteros MD Unavailable Reason for Visit Diagnostic Imaging NM (Routine) - Closed Specialty Diagnoses / Procedures Referred By Contact Refer red To Contact Diagnoses Coronary artery disease involving havasupai coronary artery of [place]ai heart, unspecified whether angina present Essential hypertension Dyslipidemia Anthony Ballesteros MD Procedures NM MPI w Lexiscan NM Adenosine stress test (nuc card) [address] [place] [address] Referral ID Status Reason Start Date Expiration Date Visits Requ ested Visits Authorized [id number] Closed 01/29/2022 01/29/2023 4 4 Encounter Details Date Type Department Care Team Description 02/10/2022 Hospital Encounter [facility] Anthony Ballesteros [facility] Nani Bernal MD Care [address] [place] [id number] [phone] Social History Tobacco Use Types Packs/Day Years [...] Sign Reading Time Taken Comments Blood Pressure 131/70 02/10/2022 12:34 PM CDT Pulse 100 02/10/2022 12:34 PM CDT Temperature - - Respiratory Rate - - Oxygen Saturation - - Inhaled Oxygen Concentration - - Weight - - Height - - Body Mass Index - - documented in this encounter Medications at Time of Discharge [...] coronary bypass 3 doses. If graft of havasupai heart symptoms persist 5 without angina pectoris minutes after 1st dose call 911. documented as of this encounter Plan of Treatment Not on filedocumented as of this encounter Procedures Procedure Name Priority Date/Time Associated Diagnosis Comme nts NM MPI WITH Routine 02/10/2022 1:38 PM Coronary artery Result s for this LEXISCAN CDT disease involving procedure are in havasupai coronary the results artery of havas[place]ai section. heart, unspecified whether angina present Essential hypertension Dyslipidemia documented in this encounter Visit Diagnoses Not on filedocumented in this encounter Administered Medications Inactive Administered Medications - up to 3 most recent administrations Medication Order MAR Action Action Date Dose Rate Site regadenoson (LEXISCAN) 0.4 MG/5ML inject ion Starting on Wed02/10/22 at 1226, For 1 dose, Marlow, Am y: cabinet override regadenoson (LEXISCAN) injection 0.4 mg Given 02/10/2022 12:34 PM CDT 0.4 mg 0.4 mg, Intravenous, ONCE, On Wed02/10/22 at 1230, For 1 dose, Push medication in through saline lock over 15 seconds. Follow medication with saline flush. To be given in procedure area., Cardiac Intra-procedure sodium chloride (PF) 0.9% PF flush 10 mL Given 02/10/2022 12:35 PM CDT 10 mLs 10 mL, Intravenous, EVERY 10 MIN PRN, other, for peripheral IV flush post IV meds, Starting on Wed02/10/22 at 1225, Cardiac Intra-procedure sodium chloride (PF) 0.9% PF flush 5-10 mL Given 02/10/2022 12:31 PM CDT 10 mLs 5-10 mL, Intravenous, EVERY 1 MIN PRN, line flush, Starting on Wed02/10/22 at 1225, For 2 doses, 2 flushes through saline lock. First flush given immediately Usual flush dose is 10 mL over 15 seconds after bolus injection of Lexiscan. Second flush given immediately after isotope injection. Usual flush dose is 5 mL. 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
--- OUTSIDE RECORDS SUMMARY | 2022-04-28 22:52 | XMS_ITS | Encounter Summary ---
:1950 Author Organization [place] Address [facility] [place] [address] Care Team Providers Name Role Phone Alfred Rios MD Primary Care Provider [phone] Alfred Rios MD Unavailable Anthony Ballesteros MD Unavailable Reason for Visit Reason Comments Medication Refill Encounter Details Date Type Department Care Team Description 01/31/2022 Refill [facility] Alfred Rios, Medication Refill [place] [address] [place] [id number] [place] MD [id number] (Wo rk) Social History Tobacco Use Types [...] this encounter Miscellaneous Notes Telephone Encounter - Best Santamaria RN - 02/03/2022 1:44 PM CDT Routing refill request to provider for review/approval because: Labs not current: ACT Patient needs to be seen because: due for follow up Last filled 1 year ago Best Kenney RN documented in this encounter Plan of Treatment Not on filedocumented as of this encounter Visit Diagnoses Diagnosis Mild intermittent asthma without complic ation Unspecified asthma documented in this encounter Additional Health Concerns Assessment Noted Time PHQ-9 Depression Total Score: 3 05/25/2020 7:02 AM 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
--- OUTSIDE RECORDS SUMMARY | 2022-04-28 22:52 | XMS_ITS | Encounter Summary ---
:1950 Author Organization [place] Address [address] [place] [address] Care Team Providers Name Role Phone Alfred Rios MD Primary Care Provider [phone] Alfred Rios MD Unavailable Anthony Ballesteros MD Unavailable Reason for Visit Reason Onset Date Comments Refill Request 05/20/2021 metoprolol tartrate (LOPRESSOR) 25 MG tablet Encounter Details Date Type Department Care Team Description 05/20/2021 Refill [facility] Alfred Rios Refill [facility] Zaida Peterson MD (metoprolol tartrate [address] (LOPRESSOR) 25 MG [place] [address] tablet) [id number] [phone] Social History Tobacco Use Types Packs/Day Years [...] Burrows RN - 05/21/2021 4:29 PM CST Prescription approved per [facility] Refill Protocol. 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
--- OUTSIDE RECORDS SUMMARY | 2022-04-28 22:52 | XMS_ITS | Clinical Summary ---
:1950 Author Organization [place] Address [address] [place] [address] Care Team Providers Name Role Phone Alfred Rios MD Primary Care Provider [phone] Alfred Rios MD Unavailable Anthony Ballesteros MD Unavailable Allergies Active Allergy Reactions Severity Noted Date Comments Nickel Rash Low 04/16/2015 Medications Medication Sig Dispensed Refills Start Date End Date Status aspirin 81 MG chewable Take 1 tablet 30 tablet 12 07/31/2015 Active tabletIndications: (81 mg) by mouth Chronic ischemic heart daily disease atorvastatin (LIPITOR) Take 1 tablet 90 tablet 3 07/03/2021 Active 40 MG (40 mg) by mouth tabletIndications: daily Hyperlipidemia with target LDL less than 100 naproxen (NAPROSYN) 500 TAKE 1 TABLET 60 tablet 1 10/28/2021 Active MG tabletIndications: (500 MG) BY Bilateral hip pain MOUTH 2 TIMES DAILY NEEDED FOR MODERATE PAIN metoprolol tartrate TAKE 1 TABLET BY 180 tablet 2 11/18/2021 Active (LOPRESSOR) 25 MG MOUTH TWICE A tabletIndications: DAY Essential hypertension, benign albuterol (PROAIR INHALE 2 PUFFS 8.5 g 1 02/03/2022 Active HFA/PROVENTIL INTO THE LUNGS HFA/VENTOLIN HFA) 108 EVERY 6 HOURS (90 Base) MCG/ACT inhalerIndications: Mild intermittent asthma without complication nitroGLYcerin FOR CHEST PAIN 25 tablet 0 03/02/2022 Active (NITROSTAT) 0.[address] 1 TABLET sublingual UNDER THE TONGUE tabletIndications: EVERY 5 MINUTES Coronary artery disease FOR 3 DOSES. IF involving coronary SYMPTOMS PERSIST bypass graft of [place] 5 MINUTES AFTER heart without angina 1ST DOSE CALL pectoris 911. Active Problems Problem Noted Date Peripheral vascular disease 04/14/2019 Post-traumatic osteoarthritis of left knee 09/12/2018 Mild intermittent asthma without complication 09/13/19 Anemia due to blood loss, acute 05/30/2015 Fluid overload 05/30/2015 S/P CABG (coronary artery bypass graft) 05/25/2015 Coronary artery disease 05/22/2015 Coronary artery disease without angina pectoris 2014 Hyperlipidemia with target LDL less than 100 5 Essential hypertension, benign 05/08/2015 Lumbar radiculopathy 05/08/2015 Facet arthritis of lumbar region 05/08/2015 Cardiac ischemia 04/24/2015 Overview: Positive stress test 04/18/15 Alfred Rios MD CRF (chronic renal failure), stage 2 (mild) 04/17/2015 Family history of NV (myocardial infarction) 5 Resolved Problems Problem Noted Date Resolved Date Bilateral low back pain without sciatica 09/04/2020 10/02/2020 Left knee pain 09/21/2018 01/25/2019 Hip pain, left 09/21/2018 01/25/2019 Hyperlipidemia with target LDL less than 130 04/16/2015 05/08/2015 Overview: Diagnosis updated by automated process. Provider to review and confirm. HTN, goal below 140/90 04/16/2015 05/08/2015 Encounters Date Type Specialty Care Team Description 03/23/2022 Office Visit Family Practice Mariana Ievy ERRONEOUS APRN LEAD SOFTWARE DEVELOPER ENCOUNTER--DISR EGARD (Primary Dx) 03/01/2022 Refill Family Practice Nikki Duque Medicbillyo n Refill MD Zahida 02/10/2022 Hospital Encounter Cardiology Anthony Ballesteros MD 02/10/2022 Hospital Encounter Radiology. Anthony Ballesteros MD 02/10/2022 Hospital Encounter Radiology. Anthony Ballesteros MD 02/10/2022 Hospital Encounter Radiology. Anthony Ballesteros Coron stacy artery disease involving [place] coronary artery of [place] heart, unspecified whether angina present; MD Gabe Essential hyper tension; Dyslipidemia 02/10/2022 Travel 01/31/2022 Refill Family Practice Alfred Rios Medication Refill MD Nicholas 01/29/2022 Office Visit Cardiology Anthony Ballesteros ar berta disease involving [place] coronary artery of [place] heart, unspecified whether angina present (Primary Dx); MD Gabe Essential hyper tension; Dyslipidemia 01/29/2022 Travel 01/26/2022 Travel from Last 3 Months Immunizations Name Administration Dates Next Due COVID-19,PF,Pfizer (12+ Yrs) 10/01/2020, 09/10/2020 Influenza (High Dose) 3 valent vaccine 04/11/2020 Influenza, Quad, High Dose, Pf, 65yr+ (Fluzone HD) Pneumo Conj 13-V (2010&after) 04/16/2015 Pneumococcal 23 valent 07/03/2021, 06/17/2016 Tdap (Adult) Unspecified Formulation 07/12/2011 Varicella 03/27/2014 Family History Medical History Relation Comments Cerebrovascular Disease Brother Coronary Artery Disease Brother Stroke Hyperlipidemia Brother Cancer Father kidney Coronary Artery Disease Father Other Cancer Father Cerebrovascular Disease Mother Coronary Artery Disease Mother Strokes Hyperlipidemia Mother Hyperlipidemia Sister Relation Status Comments Brother Alive Father Maternal Grandfather Maternal Grandmother Mother Alive Paternal Grandfather Paternal Grandmother Sister Alive Son 1 Alive Son 2 Alive Social History Tobacco Use Types Packs/Day Years Used Date Smoking Tobacco: Former Cigarettes 1 35 Quit : 10/22/1999 Smokeless Tobacco: Never Alcohol Use Standard Drinks/Week Comments Yes 0 (1 standard drink = 0.6 oz pure alcoho l) One beer most days. Sex Assigned at Date Recorded Male 12/31/2020 1:31 PM CDT Last Filed Vital Signs Vital Sign Reading Time Taken Comments Blood Pressure 131/70 02/10/2022 12:34 PM CDT Pulse 100 02/10/2022 12:34 PM CDT Temperature 36.8 ??C (98.2 ??F) 07/03/2021 8:38 AM OUTDOOR ADVENTURE GUIDES Respiratory Rate 18 07/03/2021 8:38 AM OUTDOOR ADVENTURE GUIDES Oxygen Saturation 97% 07/03/2021 8:38 AM OUTDOOR ADVENTURE GUIDES Inhaled Oxygen Concentration - - Weight 72.1 kg (159 lb) 01/29/2022 8:05 AM CDT Height 167.6 cm (5' 6) 01/29/2022 8:05 AM CDT Body Mass Index 25.66 01/29/2022 8:05 AM CDT Plan of Treatment Health Maintenance Due Date Last Done Comments ASTHMA ACTION PLAN 1950 CT COLONOGRAPHY 1950 FIT-DNA (Cologuard) 1950 FIT 1950 FLEX SIG 1950 HEPATITIS B IMMUNIZATION 1950 (1 of 3 - 3-dose series) ZOSTER IMMUNIZATION (2 of 05/22/2014 03/27/2014 3) ASTHMA CONTROL TEST 07/02/2021 12/31/2020, 05/24/2020, 04/14/2019 DTAP/TDAP/TD IMMUNIZATION 07/12/2021 07/12/2011 (2 - Td or Tdap) PHQ-2 (once per calendar 07/12/2021 07/03/2021, 12/31/2020, year) 05/24/2020, Additional history exists ANNUAL REVIEW OF HM ORDERS 12/31/2021 12/31/2020 INFLUENZA VACCINE (#1) 2022 04/26/2021, 04/11/2020, 05/10/2018 (Declined) COVID-19 Vaccine (5 - 04/01/2022 02/04/2022, 05/16/2021, Booster for Pfizer series) 10/01/2020, Additiona l history exists BMP 07/03/2022 07/03/2021, 05/24/2020, 09/12/2018, Additional history exists FALL RISK ASSESSMENT 07/03/2022 07/03/2021, 05/24/2020, 09/12/2018, Additional history exists LIPID 07/03/2022 07/03/2021, 05/24/2020, 09/12/2018, Additional history exists MEDICARE ANNUAL WELLNESS 07/03/2022 07/03/2021, 05/24/2020, VISIT 09/12/2018, Additional history exists ADVANCE CARE PLANNING 07/03/2026 07/03/2021, 05/27/2020, 04/16/2015 COLONOSCOPY 07/24/2026 07/24/2016, 07/24/2016 COLORECTAL CANCER 07/24/2026 SCREENING URINALYSIS Completed 05/06/2015 HEPATITIS C SCREENING Completed 06/17/2016 AORTIC ANEURYSM SCREENING Completed 06/25/2016 (SYSTEM ASSIGNED) Pneumococcal Vaccine: 65+ Completed 07/03/2021, 06/17/2016 , Years 04/16/2015 IPV IMMUNIZATION Aged Out No longer eligi ble based on patient 's age to complete this topic MENINGITIS IMMUNIZATION Aged Out No longe r eligible based on patient 's age to complete this topic MICROALBUMIN Discontinued Procedures Procedure Name Priority Date/Time Associated Diagnosis Comme nts NM MPI WITH Routine 02/10/2022 1:38 PM Coronary artery Result s for this LEXISCAN CDT disease involving procedure are in [place] coronary the results artery of [place] section. heart, unspecified whether angina present Essential hypertension Dyslipidemia from Last 3 Months Results NM MPI w Lexiscan (02/10/2022 1:38 PM CDT) [facility] gist Method Time Signature Target HR 148 [...] 02/10/2022. Nuclear Study Quality The quality assurance tester images demonstrate a pical thinning. Final image [...] al. Anthony Ballesteros MD IMG NM ORDERABLES from Last 3 Months Insurance Payer Benefit Plan / Subscriber ID Effective Dates Phone Addre ss Type Group BCBS BCBS MEDICARE [id number] 2019-Presen [phone] [address] [address] Medicare ADVANTAGE t 0 [place] [address] [phone] [id number] (Home) [phone] [address] (Work) [place] [address] Anthony Chun Personal/Famil Self 1950 [phone] (Home) [phone] [address] ([place]) [place] [address] Advance Directives For more information, please contact: [phone] Documents on File Type Date Recorded Patient Continuous Dryout Operator Helper Explanati on Advance Directives and 05/28/2015 Health Ca re Directive Living Will 02/26/05 Latest Code Status on File Code Status Date Activated Date Inactivated Comments Full Code 05/25/2015 9:49 AM Code Status History Code Status Date Activated Date Inactivated Comments Full Code 05/22/2015 12:15 PM 05/25/2015 9:49 AM Care Teams Rn Shift Mgr Relationship Specialty Start Date End Date Alfred Rios, PCP - General Family Practice 04/18/15 Alfred Rios, Assigned PCP 09/01/20 [address] [place] [address] [address] Anthony Ballesteros, Assigned Heart and 12/22/20 Vascular Provider [address] [place] [id number]
--- OUTSIDE RECORDS SUMMARY | 2022-04-28 22:52 | XMS_ITS | Encounter Summary ---
:1950 Author Organization [place] Address [address] [facility] [place] [address] Care Team Providers Name Role Phone Alfred Rios MD Primary Care Provider [phone] Alfred Rios MD Unavailable Anthony Ballesteros MD Unavailable Reason for Visit Reason Onset Date Comments Refill Request 10/13/2021 nitroGLYcerin (NITRO STAT) 0.4 MG sublingual tablet Encounter Details Date Type Department Care Team Description [facility] Zaida Teague MD (nitroGLYcerin [address] (NITROSTAT) 0.4 MG [place] [address] sublingual tablet) [id number] [phone] Social History Tobacco Use Types Packs/Day Years Used Date Smoking Tobacco: Former Cigarettes 1 35 Quit : 10/22/1999 Smokeless Tobacco: Never Alcohol Use Standard Drinks/Week Comments Yes 0 (1 standard drink = 0.6 oz pure alcoho l) One beer most days. Sex Assigned at Date Recorded Male 12/31/2020 1:31 PM CDT documented as of this encounter Miscellaneous Notes Telephone Encounter - Sol Alicia RN - 10/14/2021 2:32 PM CDT Prescription approved per [facility] Refill Protocol. 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
--- OUTSIDE RECORDS SUMMARY | 2022-04-28 22:52 | XMS_ITS | Encounter Summary ---
:1950 Author Organization [place] Address [address] [place] [address] Care Team Providers Name Role Phone Alfred Rios MD Primary Care Provider [phone] Alfred Rios MD Unavailable Anthony Ballesteros MD Unavailable Reason for Visit Reason Comments Medicare Visit not fasting 1 coffee with cr eam Encounter Details Date Type Department Care Team Description 07/03/2021 Office Visit [facility] Alfred Rios Encounter for Medicare annual wellness exam (Primary Dx); Clinic Zaida Peterson MD Hyperlipidemia with target LDL less than 100; [id number] [address] [address] [address] Essential hypertension, benign; [address] Need for vaccination; [place] [id number] Bilateral hip pain [id number] Social History Tobacco Use Types Packs/Day Years [...] with No / Unsure 07/03/2021 8:24 AM [facility]ERCIAL [facility]ONE PILOT someone who was confirmed or suspected to have Coronavirus / COVID-19? 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 Your care team is available to assist you inscheduling these services. If you have already completed any of these items, please share that information with your care team to update in your medical record. Health Maintenance Due Topic Date Due ??? Kidney Microalbumin Urine Test Never done ??? Asthma Action Plan - yearly Never done ??? Zoster (Shingles) Vaccine (1 of 2) Never done ??? Annual Wellness Visit 05/24/2021 ??? Basic Metabolic Panel 05/24/2021 ??? Cholesterol Lab 05/24/2021 ??? FALL RISK ASSESSMENT 05/24/2021 ??? Asthma Control Test 07/02/2021 ??? Diptheria Tetanus Pertussis (DTAP/TDAP/TD) Vaccine (2 - Td or Tdap) 07/12/2021 ERCIAL DRONE PILOT documented in this encounter Progress Notes lAfred Rios MD - 07/03/2021 8:20 AM CST SUBJECTIVE: Anthony Chun is a 71 year old male who presents for Preventive Visit. Patient has been advised of split billing requirements and indicates understanding: Yes Are you in the first 12 months of your Medicare coverage? No Healthy Habits: In general, how would you rate your overall health? Good Frequency of exercise: 6-7 days/week Duration of exercise: 30-45 minutes Do you usually eat at least 4 servings of fruit and vegetables a day, include whole grains & fiber and avoid regularly eating high fat or junk foods? Yes Taking medications regularly: Yes Medication side effects: None Ability to successfully perform activities of daily living: No assistance needed Home Safety: No safety concerns identified Hearing Impairment: Difficulty following a conversation in a noisy restaurant or crowded room, feelthat people are mumbling or not speaking clearly, need to ask people to speak up or repeat themselves, find that men's voices are easier to understand than woman's and difficulty understanding soft or whispered speech In the past 6 months, have you been bothered by leaking of urine? No In general, how would you rate your overall mental or emotional health? Good PHQ-2 Total Score: 0 Additional concerns today: No Do you feel safe in your environment? Yes Have you ever done Advance Care Planning? (For example, a Health Directive, POLST, or a discussion with a medical provider or your loved ones about your wishes): Yes, advance care planning is on file. Fall risk Fallen 2 or more times in the past year?: No Any fall with injury in the past year?: No click delete button to remove this line now Cognitive Screening 1) Repeat 3 items (Leader, Season, Table) 2) Clock draw: NORMAL 3) 3 item recall: Recalls 3 objects Results: 3 items recalled: COGNITIVE IMPAIRMENT LESS LIKELY Mini-CogTM Copyright Aziza Rosa. Licensed by the author for use in [facility]; reprintedwith permission (arlet@[facility]). All rights reserved. Do you have sleep apnea, excessive snoring or daytime drowsiness?: no Reviewed and updated as needed this visit by clinical staff Tobacco Allergies Meds Med Hx Surg Hx Fam Hx Soc Hx Reviewed and updated as needed this visit by Provider Social History Tobacco Use ??? Smoking status: Former Smoker Packs/day: 1.00 Years: 35.00 Pack years: 35.00 Types: Cigarettes Quit date: 10/22/1999 Years since quittin.7 ??? Smokeless tobacco: Never Used Substance Use Topics ??? Alcohol use: Yes Alcohol/week: 0.0 standard drinks Comment: One beer most days. Alcohol Use 07/03/2021 Prescreen: >3 drinks/day or >7 drinks/week? No Prescreen: >3 drinks/day or >7 drinks/week? - Feeling well, no acute concerns. Does follow closely with cardiology, annually, typically around August. Is fasting. Current providers sharing in care for this patient include: Patient Care Team: Alfred Rios MD as PCP - General (Family Practice) Alfred Rios MD as Assigned PCP Anthony Ballesteros MD as Assigned Heart and Vascular Provider The following health maintenance items are reviewed in [facility] and correct as of today: Health Maintenance Due Topic Date Due ??? MICROALBUMIN Never done ??? ASTHMA ACTION PLAN Never done ??? ZOSTER IMMUNIZATION (1 of 2) Never done ??? BMP 05/24/2021 ??? LIPID 05/24/2021 ??? FALL RISK ASSESSMENT 05/24/2021 ??? ASTHMA CONTROL TEST 07/02/2021 ??? DTAP/TDAP/TD IMMUNIZATION (2 - Td or Tdap) 07/12/2021 Lab work is in process Labs reviewed in [facility] Pneumonia Vaccine:Adults age 65+ who received Pneumovax (PPSV23) at 65 years or older: Should be given PCV13 > 1 year after their most recent PPSV23 Review of Systems Constitutional: Negative for chills and fever. HENT: Positive for hearing loss. Negative for congestion, ear pain and sore throat. Eyes: Positive for visual disturbance. Negative for pain. Respiratory: Negative for cough and shortness of breath. Cardiovascular: Negative for chest pain, palpitations and peripheral edema. Gastrointestinal: Negative for abdominal pain, constipation, diarrhea, heartburn, hematochezia and nausea. Genitourinary: Positive for impotence. Negative for dysuria, frequency, genital sores, hematuria, penile discharge and urgency. Musculoskeletal: Positive for arthralgias and myalgias. Negative for joint swelling. Skin: Negative for rash. Neurological: Negative for dizziness, weakness, headaches and paresthesias. Psychiatric/Behavioral: Negative for mood changes. The patient is not nervous/anxious. OBJECTIVE: BP 118/62 (BP Location: Right arm, Patient Position: Sitting, Cuff Size: Adult Regular) Pulse 66 Temp 98.2 ??F (36.8 ??C) (Oral) Resp 18 Wt 70.8 kg (156 lb) SpO2 97% BMI 25.18 kg/m?? Estimated body mass index is 25.18 kg/m?? as calculated from the following: Height as of 12/31/20: 1.676 m (5' 6). Weight as of this encounter: 70.8 kg (156 lb). Physical Exam Constitutional: General: He is not in acute distress. Appearance: He is well-developed. HENT: Right Ear: Tympanic membrane and external ear normal. Left Ear: Tympanic membrane and external ear normal. Nose: Nose normal. Mouth/Throat: Mouth: No oral lesions. Pharynx: No oropharyngeal exudate. Eyes: General: Right eye: No discharge. Left eye: No discharge. Conjunctiva/sclera: Conjunctivae normal. Pupils: Pupils are equal, round, and reactive to light. Neck: Thyroid: No thyromegaly. Trachea: No tracheal deviation. Cardiovascular: Rate and Rhythm: Normal rate and regular rhythm. Pulses: Normal pulses. Heart sounds: Normal heart sounds, S1 normal and S2 normal. No murmur heard. No S3 or S4 sounds. Pulmonary: Effort: Pulmonary effort is normal. No respiratory distress. Breath sounds: Normal breath sounds. No wheezing or rales. Abdominal: General: Bowel sounds are normal. Palpations: Abdomen is soft. There is no mass. Tenderness: There is no abdominal tenderness. Musculoskeletal: General: No deformity. Normal range of motion. Cervical back: Neck supple. Lymphadenopathy: Cervical: No cervical adenopathy. Skin: General: Skin is warm and dry. Findings: No lesion or rash. Neurological: Mental Status: He is alert and oriented to person, place, and time. Motor: No abnormal muscle tone. Deep Tendon Reflexes: Reflexes are normal and symmetric. Psychiatric: Speech: Speech normal. Thought Content: Thought content normal. Judgment: Judgment normal. Diagnostic Test Results: Labs reviewed in [facility] ASSESSMENT / PLAN: ICD-10-CM 1. Encounter for Medicare annual wellness exam Z00.00 2. Hyperlipidemia with target LDL less than 100 E78.5 atorvastatin (LIPITOR) 40 MG tablet Lipid panel reflex to direct LDL Fasting OFFICE/OUTPT VISIT,EST,LEVL IV 3. Essential hypertension, benign I10 metoprolol tartrate (LOPRESSOR) 25 MG tablet Basic metabolic panel (Ca, Cl, CO2, Creat, Gluc, K, Na, BUN) OFFICE/OUTPT VISIT,EST,LEVL IV 4. Need for vaccination Z23 PPSV23, IM/SUBQ (2+ YRS) - [id number] 5. Bilateral hip pain M25.551 naproxen (NAPROSYN) 500 MG tablet M25.552 Patient has been advised of split billing requirements and indicates understanding: Yes COUNSELING: Reviewed preventive health counseling, as reflected in patient instructions Estimated body mass index is 25.18 kg/m?? as calculated from the following: Height as of 12/31/20: 1.676 m (5' 6). Weight as of this encounter: 70.8 kg (156 lb). He reports that he quit smoking about 21 years ago. His smoking use included cigarettes. He has a 35.00 pack-year smoking history. He has never used smokeless tobacco. Appropriate preventive services were discussed with this patient, including applicable screening as appropriate for cardiovascular disease, diabetes, osteopenia/osteoporosis, and glaucoma. As appropriate for age/gender, discussed screening for colorectal cancer, prostate cancer, breast cancer, and cervical cancer. Checklist reviewing preventive services available has been given to the patient. Reviewed patients plan of care and provided an AVS. The Basic Care Plan (routine screening as documented in Health Maintenance) for Anthony meets the Care Plan requirement. This Care Plan has been established and reviewed with the Patient. Counseling Resources: ATP IV Guidelines Pooled Cohorts Equation Calculator Breast Cancer Risk Calculator Breast Cancer: Medication to Reduce Risk FRAX Risk Assessment ICSI Preventive Guidelines Dietary Guidelines for Americans, 2009 USDA's MyPlate ASA Prophylaxis Lung CA Screening Alfred Rios MD [facility] Identified Health Risks: ERCIAL DRONE PILOT documented in this encounter Plan of Treatment Not on filedocumented as of this encounter Procedures Procedure Name Priority Date/Time Associated Diagnosis Comme nts LIPID REFLEX TO Routine 07/03/2021 9:16 AM Hyperlipidemia with Results for this DIRECT LDL PANEL [employer] P[facility]OT target LDL less than pro cedure are in 100 the results section. BASIC METABOLIC Routine 07/03/2021 9:16 AM Essential hypertens ion, Results for this PANEL [employer] [facility]OT benign procedure are i n the results section. documented in this encounter Results (ABNORMAL) Basic metabolic panel (Ca, Cl, CO2, Creat, Gluc, K, Na, BUN) (07/03/2021 9:16 AM [employer]ER[employer]ONE PILOT) Analysis Performed At Patho logist Time Signature Sodium 138 133 - 144 07/03/2021 [facility] mmol/L 3:01 PM [facility] [employer] [facility]OT Potassium 4.4 3.4 - 5.3 07/03/2021 [facility] mmol/L 3:01 PM [facility] Chloride 107 94 - 109 07/03/2021 [facility] mmol/L 3:01 PM [facility] Carbon Dioxide 25 20 - 32 07/03/2021 [facility] (CO2) mmol/L 3:01 PM [employer] [employer] [facility] Anion Gap 6 3 - 14 07/03/2021 [facility] mmol/L 3:01 PM [facility] Urea Nitrogen 22 7 - 30 07/03/2021 [facility] mg/dL 3:01 PM [facility] Creatinine 1.04 0.66 - 07/03/2021 [facility] 1.25 mg/dL 3:01 PM [facility] Calcium 9.1 8.5 - 10.1 07/03/2021 [facility] mg/dL 3:01 PM [facility] Glucose 105 (H) 70 - 99 07/03/2021 [facility] mg/dL 3:01 PM [facility] GFR Estimate 77 >60 07/03/2021 [facility] mL/min/1.7 3:01 PM [facility] 3m2 Comment: Effective July 01, 2021 eGF Rcr in adults is calculated using the 2020 CKD-EPI creatinine equation which includ es age and gender (Corey et al., NEJM, DOI: 10.1056/LJITet8404790) Specimen Anatomical Collection Method / Collection Time Recei lashawn Time (Source) Location / Volume Laterality Blood STRUCTURE OF RIGHT Venipuncture / 07/03/2021 9:16 12/2 09/2020 9:16 UPPER LIMB / Unknown AM [facility]OT AM COMMERCIAL DRONE PILOT Unknown Alfred Rios MD LAB - BLOOD ORDERABLES Performing Organization Address City/State/ZIP Code Phon e Number [facility] [place], [place] [phone] [facility] [address] [place] [address] Lab (no room number, 1st floor of clinic) [facility] [place], [place] [phone] [facility] [address] [address] Lab (no room number, 1st floor of clinic) Lipid panel reflex to direct LDL Fasting (07/03/2021 9:16 AM COMMERCIAL DRONE PILOT) Patholo gist Method Time Signature Cholesterol 135 <200 mg/dL 07/03/2021 [facility] 3:13 PM [facility] Triglycerides 51 <150 mg/dL 07/03/2021 [facility] 3:13 PM [facility] Direct Measure HDL 65 >=40 mg/dL 07/03/2021 [facility] 3:13 PM [facility] LDL Cholesterol 60 <=100 07/03/2021 [facility] Calculated mg/dL 3:13 PM [facility]ERCIAL [facility]ONE PILOT Non HDL 70 <130 mg/dL 07/03/2021 [facility] Cholesterol 3:13 PM COMMERCIAL DRONE PILOT Patient Fasting > Yes 07/03/2021 [facility] RY 8hrs? 3:13 PM [facility]ER[facility]ONE PILOT Specimen Anatomical Collection Method / Collection Time Recei lashawn Time (Source) Location / Volume Laterality Blood STRUCTURE OF RIGHT Venipuncture / 07/03/2021 9:16 06/12 9:16 UPPER LIMB / Unknown AM COMMERCIAL DRONE PILOT AM COMMERCIAL DRONE PILOT Unknown Narrative [facility] - 07/03/2021 3:13 PM COMMERCIAL DRONE PILOT Cholesterol Desirable: ??<200 mg/dL Triglycerides Normal: ??Less than 150 mg/dL Borderline High: ??150-199 mg/dL High: ??200-499 mg/dL Very High: ??Greater than or equal to 50 0 mg/dL Direct Measure HDL Female: ??Greater than or equal to 50 mg /dL Male: ??Greater than or equal to 40 mg/d L LDL Cholesterol Desirable: ??<100mg/dL Above Desirable: ??100-129 mg/dL Borderline High: ??130-159 mg/dL High: ??160-189 mg/dL Very High: ??>= 190 mg/dL Non HDL Cholesterol Desirable: ??130 mg/dL Above Desirable: ??130-159 mg/dL Borderline High: ??160-189 mg/dL High: ??190-219 mg/dL Very High: ??Greater than or equal to 22 0 mg/dL Alfred Rios MD LAB - BLOOD ORDERABLES Performing Organization Address City/State/ZIP Code Phon e Number [facility] [place], [place] [phone] [facility] [address] Lab (no room number, 1st floor of clinic) [place], [place] [phone] [facility] [address] [address] Lab (no room number, 1st floor of clinic) documented in this encounter Visit Diagnoses Diagnosis Encounter for Medicare annual wellness e xam - Primary Routine general medical examination at a health care facility Hyperlipidemia with target LDL less than 100 Other and unspecified hyperlipidemia Essential hypertension, benign Need for vaccination Need for prophylactic vaccination and in oculation against unspecified single disease Bilateral hip pain Pain in joint, pelvic region and thigh documented in this encounter Additional Health Concerns Assessment Noted Time PHQ-9 Depression Total Score: 3 05/25/2020 7:02 AM [facility]ERCIAL DRONE PILOT documented as of this encounter Care Teams Emu Farmer Relationship Specialty Start Date End Date Alfred Rios, PCP - General Family Practice 04/18/15 Alfred Rios, Assigned PCP 09/01/20 [id number] [address] [id number] Anthony Ballesteros, Assigned Heart and 12/22/20 Vascular Provider [address] [place] [id number] documented as of this encounter
--- OUTSIDE RECORDS SUMMARY | 2022-04-28 22:52 | XMS_ITS | Encounter Summary ---
:1950 Author Organization [place] Address [address] [facility] [place] [address] Care Team Providers Name Role Phone Alfred Rios MD Primary Care Provider [phone] Alfred Rios MD Unavailable Anthony Ballesteros MD Unavailable Reason for Visit Diagnostic Imaging NM (Routine) - Closed Specialty Diagnoses / Procedures Referred By Contact Refer red To Contact Diagnoses Coronary artery disease involving [place] coronary artery of [place] heart, unspecified whether angina present Essential hypertension Dyslipidemia Anthony Ballesteros MD Procedures NM MPI w Lexiscan NM Adenosine stress test (nuc card) [address] [place] [address] Referral ID Status Reason Start Date Expiration Date Visits Requ ested Visits Authorized [id number] Closed 01/29/2022 01/29/2023 4 4 Encounter Details Date Type Department Care Team Description [facility]ary artery disease involving [place] coronary artery of [place] heart, unspecified whether angina present; Mendel Bernal MD Essential hypertension; [address] Dyslipidemia [place], [place] [address] [address] [place] [address] [phone] Social History Tobacco Use Types Packs/Day Years [...] coronary bypass 3 doses. If graft of [place] heart symptoms persist 5 without angina pectoris minutes after 1st dose call 911. documented as of this encounter Plan of Treatment Not on filedocumented as of this encounter Procedures Procedure Name Priority Date/Time Associated Diagnosis Comme nts NM MPI WITH Routine 02/10/2022 1:38 PM Coronary artery Result s for this LEXISCAN CDT disease involving procedure are in [place] coronary the results artery of [place] section. heart, unspecified whether angina present Essential hypertension Dyslipidemia documented in this encounter Results NM MPI w Lexiscan (02/10/2022 1:38 PM CDT) [facility] gist Method Time Signature Target HR [...] on 02/10/2022. Nuclear Study Quality The quality improvement analyst images demonstrate a pical thinning. Final image [...] ORDERABLES documented in this encounter Visit Diagnoses Diagnosis Coronary artery disease involving [place] coronary artery of [place] heart, unspecified whether angina present Essential hypertension Unspecified essential hypertension Dyslipidemia Other and unspecified hyperlipidemia documented in this encounter Administered Medications Inactive Administered Medications - up to 3 most recent administrations Medication Order MAR Action Action Date Dose Rate Site technetium Tc 99m tetrofosmin Given 02/10/2022 12:36 PM CDT 32.4 mCi 2UD study (MYOVIEW) radioisotope injection 3-42 mCi 3-42 mCi, Intravenous, EVERY 2 HOURS, First dose on Wed02/10/22 at 1100, For 2 doses, Radioisotope, supplied by and administered by Nuclear Medicine. 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
--- OUTSIDE RECORDS SUMMARY | 2022-04-28 22:53 | XMS_ITS | Encounter Summary ---
:1950 Author Organization [place] Address [facility] [place] [address] Care Team Providers Name Role Phone Alfred Rios MD Primary Care Provider [phone] Alfred Rios MD Unavailable Encounter Details Date Type Department Care Team Description 09/06/2019 Travel Social History Tobacco Use Types Packs/Day Years Used Date Smoking Tobacco: Former Cigarettes 1 35 Quit : 10/22/1999 Smokeless Tobacco: Never Alcohol Use Standard Drinks/Week Comments Yes 0 (1 standard drink = 0.6 oz pure alcoho l) 1-2 beers daily Sex Assigned at Date Recorded Male 12/31/2020 1:31 PM CDT documented as of this encounter Plan of Treatment Not on filedocumented as of this encounter Visit Diagnoses Not on filedocumented in this encounter Additional Health Concerns Assessment Noted Time PHQ-9 Depression Total Score: 5 04/15/2019 7:03 AM CDT documented as of this encounter Care Teams Chemistry Lecturer Relationship Specialty Start Date End Date Alfred Rios MD PCP - General Family Practice 04/18/15 Alfred Rios MD Assigned PCP 03/22/15 06/01/20 [id number] [place] [address] documented as of this encounter
--- OUTSIDE RECORDS SUMMARY | 2022-04-28 22:53 | XMS_ITS | Encounter Summary ---
:1950 Author Organization [facility] Address [address] [facility] [place] [address] Care Team Providers Name Role Phone Alfred Rios MD Primary Care Provider [phone] Anthony Ballesteros MD Unavailable Alfred Rios MD Unavailable Reason for Referral DEBBI Physical Therapy (Routine) - Closed Specialty Diagnoses / Procedures Referred By Contact Refer red To Contact Diagnoses B[place] [id number] [address] [id number] Referral ID Status Reason Start Date Expiration Date Visits Requ ested Visits Authorized [id number] Closed 08/29/2020 07/11/2021 40 40 RER HOISTING Reason for Visit Reason Comments Musculoskeletal Problem Back Pain Encounter Details Date Type Department Care Team Description 08/29/2020 Office Visit [facility] Alfred Rios Bilateral hip pain Clinic Zaida Peterson MD (Primary Dx) [address] [address] [address] [place] [id number] [phone] Social History Tobacco Use Types Packs/Day Years [...] been in contact with No / Unsure 08/29/2020 4:12 PM LABORER HOISTING someone who was confirmed or suspected to have Coronavirus / COVID-19? documented as of this encounter Last Filed Vital Signs Vital Sign Reading Time Taken Comments Blood Pressure 106/58 08/29/2020 4:21 PM LABORER HOISTING Pulse 60 08/29/2020 4:21 PM LABORER HOISTING Temperature 36.4 ??C (97.5 ??F) 08/29/2020 4:21 PM LABORER HOISTING Respiratory Rate 16 08/29/2020 4:21 PM LABORER HOISTING Oxygen Saturation 99% 08/29/2020 4:21 PM LABORER HOISTING Inhaled Oxygen Concentration - - Weight 73.9 kg (163 lb) 08/29/2020 4:21 PM LABORER HOISTING Height - - Body Mass Index 26.31 05/24/2020 9:51 AM LABORER HOISTING documented in this encounter Progress Notes Alfred Rios MD - 08/29/2020 4:20 PM CST Assessment and Plan (M25.551, M25.552) Bilateral hip pain (primary encounter diagnosis) Comment: Pipo focuses more on his legs, hips and buttocks, so some concern for PMR, but ESR is normal. No radicular sx, so will focus initially on PT Plan: ESR: Erythrocyte sedimentation rate, CRP, inflammation, DEBBI PT, HAND, AND CHIROPRACTIC REFERRAL, naproxen (NAPROSYN) 500 MG tablet RTC in for recheck BP Alfred Rios MD Subjective Pipo is a 70 year old who presents for the following health issues HPI Back Pain Onset/Duration: year or so Description: Location of pain: low back bilateral Character of pain: dull ache and constant Pain radiation: radiates into the right leg and radiates into the left leg New numbness or weakness in legs, not attributed to pain: YES Intensity: moderate, severe Progression of Symptoms: worsening and constant History: Specific cause: none Pain interferes with job: YES History of back problems: Sciatic Any previous MRI or X-rays: Yes- at [facility]. Date 2014 Sees a specialist for back pain: No Alleviating factors: Improved by: none Precipitating factors: Worsened by: Standing, Sitting, Lying Flat and Walking Therapies tried and outcome: heat and NSAIDs Accompanying Signs & Symptoms: Risk of Fracture: None Risk of Cauda Equina: None Risk of Infection: None Risk of Cancer: None Risk of Ankylosing Spondylitis: Onset at age <35, male, AND morning back stiffness no Feels his back issues are made worse by sitting too long, but also if standing too long. Legs can gonumb if he sits too long. Did have some sciatic pain about 5 years ago, and did have an epidural injection at that time and has lasted until just recently. Notes that pain will involve all aspect of his legs, also buttocks. Also has JUANCHO lower back pain. Also not both shoulders cause pain, but has had R rotator cuff surgery in the past. Does find that naproxen works well for his pain. Also notes that numerous members of his extended family on his mom's side have autoimmune arthritis, including one cousin with JRA. Review of Systems Constitutional: Negative. Musculoskeletal: Positive for arthralgias, back pain and myalgias. Skin: Negative. Neurological: Negative. Objective BP 106/58 (BP Location: Right arm, Patient Position: Sitting, Cuff Size: Adult Regular) Pulse 60 Temp 97.5 ??F (36.4 ??C) (Oral) Resp 16 Wt 73.9 kg (163 lb) SpO2 99% BMI 26.31 kg/m?? Body mass index is 26.31 kg/m??. Physical Exam Vitals signs and nursing note reviewed. Cardiovascular: Rate and Rhythm: Normal rate and regular rhythm. Heart sounds: Normal heart sounds. Pulmonary: Effort: Pulmonary effort is normal. Breath sounds: Normal breath sounds. Musculoskeletal: Right hip: Normal. He exhibits normal range of motion and normal strength. Left hip: He exhibits normal range of motion and normal strength. Lumbar back: He exhibits normal range of motion, no tenderness and no spasm. Comments: Justice IT tension R>L Skin: General: Skin is warm and dry. Findings: No rash. Neurological: Gait: Gait normal. Deep Tendon Reflexes: Reflex Scores: Patellar reflexes are 2+ on the right side and 2+ on the left side. Achilles reflexes are 2+ on the right side and 2+ on the left side. RER HOISTING documented in this encounter Plan of Treatment Scheduled Referrals Name Type Priority Associated Diagnoses Order S chedule DEBBI PT, HAND, AND Referral Routine Bilateral hip pain Expe cted: 08/29/2020, CHIROPRACTIC REFERRAL s: 08/29/2021 documented as of this encounter Procedures Procedure Name Priority Date/Time Associated Comments Diagnosis ERYTHROCYTE Routine 08/29/2020 4:42 PM Bilateral hip pain Res ults for this SEDIMENTATION RATE LABORER HOISTING procedure are in AUTO the results section. CRP INFLAMMATION Routine 08/29/2020 4:42 PM Bilateral hip pain Results for this LABORER HOISTING procedure are i n the results section. documented in this encounter Results CRP, inflammation (08/29/2020 4:42 PM LABORER HOISTING) Analysis Performed At Patho logist Time Signature CRP Inflammation <2.9 0.0 - 8.0 08/30/2020 [facility] mg/L 2:13 PM LABORER HOISTING [facility] Specimen Anatomical Collection Method Collection Time Receive d Time (Source) Location / / Volume Laterality Blood specimen 08/29/2020 4:42 PM 021 4:43 (specimen) LABORER HOISTING PM LABORER HOISTING Alfred Rios MD LAB - BLOOD ORDERABLES Performing Organization Address City/[facility]/ZIP Code Phon e Number [facility] [address] [place] [address] [facility] ESR: Erythrocyte sedimentation rate (08/29/2020 4:42 PM LABORER HOISTING) P athologist Signature Sed Rate 4 0 - 20 mm/h 08/29/2020 [place] 4:54 PM LABORER HOISTING [facility] Specimen Anatomical Collection Method Collection Time Receive d Time (Source) Location / / Volume Laterality Blood specimen 08/29/2020 4:42 PM 021 4:43 (specimen) LABORER HOISTING PM LABORER HOISTING Alfred Rios MD LAB - BLOOD ORDERABLES Performing Organization Address City/State/ZIP Code Phon e Number [facility] [address] [place], [place] [address] documented in this encounter Visit Diagnoses Diagnosis Bilateral hip pain - Primary Pain in joint, pelvic region and thigh documented in this encounter Additional Health Concerns Assessment Noted Time PHQ-9 Depression Total Score: 3 05/25/2020 7:02 AM LABORER HOISTING documented as of this encounter Care Teams Artists' Booking Representative Relationship Specialty Start Date End Date Alfred Rios, PCP - General Family Practice 04/18/15 Anthony Ballesteros, Assigned Heart and 05/03/20 09/24/20 Vascular Provider [address] [place] [address] Alfred Rios, Assigned PCP 06/02/20 [address] [address] [id number] documented as of this encounter
--- OUTSIDE RECORDS SUMMARY | 2022-04-28 22:53 | XMS_ITS | Encounter Summary ---
:1950 Author Organization [place] Address [facility] [facility] [place] [address] Care Team Providers Name Role Phone Alfred Rios MD Primary Care Provider [phone] Alfred Rios MD Unavailable Murali Cadet MD Unavailable Anthony Ballesteros MD Unavailable Reason for Visit Reason Comments Medication Refill Encounter Details Date Type Department Care Team Description 12/12/2020 Refill [facility] Alfred Rios, Medication Refill [place] [address] [phone] Social History Tobacco Use Types Packs/Day Years [...] been in contact with No / Unsure 12/13/2020 8:48 AM CDT someone who was confirmed or suspected to have Coronavirus / COVID-19? documented as of this encounter Miscellaneous Notes Telephone Encounter - Evi Sonw - 12/23/2020 11:09 AM CDT Spoke with pt, scheduled 12/31 with PCP Doretha Snow- [employer] Telephone Encounter - Kenzie Posada - 12/13/2020 1:18 PM CDT 1st attempt, sent [employer] message to schedule Telephone Encounter - Teresita Easley RN - 12/13/2020 11:57 AM CDT Patient due for a BP follow up. Will forward to TC's to assist with scheduling. Prescription approved per [facility] protocol. 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
--- OUTSIDE RECORDS SUMMARY | 2022-04-28 22:53 | XMS_ITS | Encounter Summary ---
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 documented as of this encounter Plan of Treatment Not on filedocumented as of this encounter Visit Diagnoses Not on filedocumented in this encounter Additional Health Concerns Assessment Noted Time PHQ-9 Depression Total Score: 3 05/25/2020 7:02 AM LOGISTICS SOLUTION MANAGER documented as of this encounter Care Teams Train Operations Manager Relationship Specialty Start Date End Date Alfred Rios, PCP - General Family Practice 04/18/15 Anthony Ballesteros, Assigned Heart and 05/03/20 09/24/20 Vascular Provider [address] [place] [address] Alfred Rios, Assigned PCP 09/01/20 [id number] [address] [address] documented as of this encounter
--- OUTSIDE RECORDS SUMMARY | 2022-04-28 22:53 | XMS_ITS | Encounter Summary ---
:1950 Author Organization [place] Address [address] [place] [address] Care Team Providers Name Role Phone Alfred Rios MD Primary Care Provider [phone] Alfred Rios MD Unavailable Anthony Ballesteros MD Unavailable Reason for Visit Reason Comments Hypertension Encounter Details Date Type Department Care Team Description 12/31/2020 Office Visit [facility] Alfred Rios Essential hypertension, benign (Primary Dx); Clinic Zaida Peterson MD Peripheral vascular disease, unspecified (H) [address] [address] [address] [facility] [place] [phone] Social History Tobacco Use Types Packs/Day Years [...] been in contact with No / Unsure 12/31/2020 3:13 PM CDT someone who was confirmed or suspected to have Coronavirus / COVID-19? documented as of this encounter Last Filed Vital Signs Vital Sign Reading Time Taken Comments Blood Pressure 90/50 12/31/2020 3:24 PM CDT Pulse 68 12/31/2020 3:24 PM CDT Temperature 36.8 ??C (98.3 ??F) 12/31/2020 3:24 PM CDT Respiratory Rate 20 12/31/2020 3:24 PM CDT Oxygen Saturation 97% 12/31/2020 3:24 PM CDT Inhaled Oxygen Concentration - - Weight 73.4 kg (161 lb 14.4 oz) 12/31/2020 3:24 PM CDT Height 167.6 cm (5' 6) 12/31/2020 3:24 PM CDT Body Mass Index 26.13 12/31/2020 3:24 PM CDT documented in this encounter Progress Notes Alfred Rios MD - 12/31/2020 3:20 PM CDT Assessment and Plan (I10) Essential hypertension, benign (primary encounter diagnosis) Comment: stable, has adequate meds on hand Plan: REVIEW OF HEALTH MAINTENANCE PROTOCOL ORDERS (I73.9) Peripheral vascular disease, unspecified (H) Comment: stable Plan: REVIEW OF HEALTH MAINTENANCE PROTOCOL ORDERS RTC in 6m for CPE Alfred Rios MD Thor Foss is a 70 year old who presents for the following health issues HPI Hypertension Follow-up ?? Do you check your blood pressure regularly outside of the clinic? No ?? Are you following a low salt diet? Yes ?? Are your blood pressures ever more than 140 on the top number (systolic) OR more than 90 on the bottom number (diastolic), for example 140/90? Yes ?? How many servings of fruits and vegetables do you eat daily? 0-1 ?? On average, how many sweetened beverages do you drink each day (Examples: soda, juice, sweet tea,etc. Do NOT count diet or artificially sweetened beverages)? 1 ?? How many days per week do you exercise enough to make your heart beat faster? 7 ?? How many minutes a day do you exercise enough to make your heart beat faster? 60 or more How many days per week do you miss taking your medication? 1 ?? What makes it hard for you to take your medications? remembering to take Feeling well, no acute concerns. Did f/u with cardiology about 2 weeks ago. Denies CP, palpitations,edema, dyspnea, QUINTERO, vision changes. No claudication. Review of Systems Constitutional: Negative. Eyes: Negative for visual disturbance. Respiratory: Negative for shortness of breath. Cardiovascular: Negative for chest pain, palpitations and peripheral edema. Neurological: Negative for headaches. Objective BP 90/50 (BP Location: Right arm, Patient Position: Sitting, Cuff Size: Adult Regular) Pulse 68 Temp 98.3 ??F (36.8 ??C) (Oral) Resp 20 Ht 1.676 m (5' 6) Wt 73.4 kg (161 lb 14.4 oz) SpO2 97% BMI 26.13 kg/m?? Body mass index is 26.13 kg/m??. Physical Exam Vitals signs and nursing note reviewed. Constitutional: Appearance: He is well-developed. Eyes: Pupils: Pupils are equal, round, and reactive to light. Cardiovascular: Rate and Rhythm: Normal rate and regular rhythm. Heart sounds: Normal heart sounds. Pulmonary: Effort: Pulmonary effort is normal. Breath sounds: Normal breath sounds. Skin: General: Skin is warm and dry. Findings: No rash. Neurological: Mental Status: He is alert and oriented to person, place, and time. 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
--- OUTSIDE RECORDS SUMMARY | 2022-04-28 22:53 | XMS_ITS | Encounter Summary ---
:1950 Author Organization [place] Address [address] [facility] [place] [address] Care Team Providers Name Role Phone Alfred Rios MD Primary Care Provider [phone] Alfred Rios MD Unavailable Murali Cadet MD Unavailable Reason for Referral (Routine) - Closed Specialty Diagnoses / Procedures Referred By Contact Refer red To Contact Diagnoses Coronary artery disease involving solomon heart, angina presence unspecified, unspecified vessel or lesion type Anthony Freire MD [address] [place] [address] Referral ID Status Reason Start Date Expiration Date Visits Requ ested Visits Authorized [id number] Closed 12/13/2020 12/13/2021 1 1 Reason for Visit Reason Comments Annual Visit Coronary Artery Disease Encounter Details Date Type Department Care Team Description 12/13/2020 Office Visit Anthony Shrestha rtery disease involving solomon heart, angina presence unspecified, unspecified vessel or lesion type (Primary Dx); [facility] MD Gabe Dyslipidemia [facility] sree [address] [place] [address] [place], [place] [phone] (work) [phone] Social History Tobacco Use Types Packs/Day Years [...] Sign Reading Time Taken Comments Blood Pressure 120/76 12/13/2020 8:56 AM CDT Machine Pulse 53 12/13/2020 8:56 AM CDT Temperature - - Respiratory Rate - - Oxygen Saturation 99% 12/13/2020 8:56 AM CDT Inhaled Oxygen Concentration - - Weight 72.2 kg (159 lb 3.2 oz) 12/13/2020 8:56 AM CDT Height 167.6 cm (5' 6) 12/13/2020 8:56 AM CDT Body Mass Index 25.7 12/13/2020 8:56 AM CDT documented in this encounter Progress Notes Anthony Ballesteros MD - 12/13/2020 9:43 AM CDT Service Date: 12/13/2020 CARDIOLOGY CLINIC VISIT NOTE HISTORY OF PRESENT ILLNESS: Russel Billingsley, a 70-year-old man with coronary artery disease, atherosclerotic peripheral vascular disease and dyslipidemia, was seen today at your request for followup. Since last seen in 08/2019, Mr. Billingsley has noted no change in chronic episodic chest heaviness. He underwent a nuclear stress test on 09/29/2019 that showed excellent exercise tolerance (10.9 METs) withno evidence of ischemia and a normal ejection fraction. The patient remains compliant with medical therapy. He notes episodes of chest heaviness when walking the dog or when mowing his lawn but does not find the symptoms disabling. He has not tried nitroglycerin for the episodes. PAST MEDICAL HISTORY: 1. Moderate narrowing in the right internal carotid artery. Followed by Dr. Cadet. Recent evaluationshowing no change. 2. Coronary artery disease. a. Presentation with chest pain and abnormal stress test 2014. b. History of bypass surgery with RIVAS graft to LAD. No significant narrowing noted in left main or circumflex. Moderate midvessel narrowing noted in right coronary. c. Negative exercise nuclear stress test 2019 with good exercise tolerance and no ischemia. 3. Dyslipidemia. PHYSICAL EXAMINATION: GENERAL: Today demonstrates a very pleasant, cooperative and intelligent 70-year-old man. VITAL SIGNS: His blood pressure is 120/76, his heart rate is 53 and regular. His height is 1.7 meters, his weight is 72.2 kg, BMI 25.7. RESPIRATORY: His lungs are clear to percussion and auscultation. CARDIOVASCULAR: Shows a normal S1 with a normal S2. There is no S3. There is no murmur rub or click. MEDICATIONS: 1. Aspirin 81 daily. 2. Atorvastatin 40 daily. 3. Metoprolol 25 b.i.d. 4. Nitroglycerin sublingual p.r.n. LABORATORY STUDIES: There has been no recent lipid profile in our records. ASSESSMENT: Mr. Billingsley has chronic episodic chest pressure that occurs primarily with activity. The episodes have remained stable since 2017. He has had 2 negative nuclear stress tests showing satisfactory exercise tolerance. I cannot exclude progression of CAD that might be amenable to revascularization, even in the face of negative stress tests. I again presented the option of diagnostic coronary and graft angiography followed by possible revascularization His nuclear stress test indicates that he is not at high risk. At present, Mr. Billingsley would like to avoid any invasive procedures and wishes to remain on medical therapy. His medical treatment at this time is optimal with optimal systolic blood pressure and heart rates. He will contact us should his symptoms change or progress and/or he changeshis mind about invasive evaluation.. RECOMMENDATIONS: 1. Continue present medical therapy. 2. I have explained to the patient that I cannot exclude a lesion that might be amenable to mechanical revascularization as a cause for his symptoms. The patient would prefer to remain on medical therapy and since his symptoms have been stable. The patient may try p.r.n. nitroglycerin. 3. Followup visit with me in about 1 year, earlier if symptoms change in any fashion. We greatly appreciate helping your patient, Mr. Russel Billingsley. Anthony Ballesteros MD cc: Alfred Rios MD [facility] [place] [address] Anthony Ballesteros MD MT: yanet Name: RUSSEL BILLINGSLEY MRN: [id number] Account: [id number] : 1950 Service Date: 12/13/2020 Document: [id number] Anthony Ballesteros MD - 12/13/2020 9:00 AM CDT HISTORY OF PRESENT ILLNESS: Still has stable exertional chest pressure occurs at times with walking his dog of with mowing the lawn. No change in symptoms with negative nuclear stress test 09/28/ Orders this Visit: Orders Placed This Encounter Procedures ??? EKG 12-lead complete w/read - Clinics (performed today) No orders of the defined types were placed in this encounter. There are no discontinued medications. Encounter Diagnoses Name Primary? Coronary artery disease without angina pectoris Yes ??? Coronary artery disease CURRENT MEDICATIONS: Current Outpatient Medications Medication Sig Dispense Refill ??? aspirin 81 MG chewable tablet Take 1 tablet (81 mg) by mouth daily 30 tablet 12 ??? atorvastatin (LIPITOR) 40 MG tablet Take 1 tablet (40 mg) by mouth daily 90 tablet 3 ??? metoprolol tartrate (LOPRESSOR) 25 MG tablet TAKE 1 TABLET BY MOUTH TWICE A DAY 180 tablet 0 ??? naproxen (NAPROSYN) 500 MG tablet Take 1 tablet (500 mg) by mouth 2 times daily (with meals) 60 tablet 1 ??? acetaminophen 650 MG TABS Take 650 mg by mouth every 6 hours as needed for mild pain or fever (Patient not taking: Reported on 12/13/2020) 100 tablet ??? albuterol (PROAIR HFA/PROVENTIL HFA/VENTOLIN HFA) 108 (90 Base) MCG/ACT inhaler Inhale 2 puffs into the lungs every 6 hours (Patient not taking: Reported on 12/13/2020) 1 Inhaler 1 ??? nitroGLYcerin (NITROSTAT) 0.4 MG sublingual tablet 1 TABLET UNDER THE TONGUE EVERY 5 MINUTES IF NEEDED FOR CHEST PAIN. MAY REPEAT EVERY 5 MINUTES FOR A MAXIMUM OF 3 DOSES IN 15 MINUTES (Patient nottaking: Reported on 12/13/2020) 25 tablet 0 ALLERGIES Allergies Allergen Reactions ??? Nickel Rash PAST MEDICAL, SURGICAL, FAMILY, SOCIAL HISTORY: History was reviewed and updated as needed, see medical record. Review of Systems: A 12-point review of systems was completed, see medical record for detailed review of systems information. Physical Exam: Vitals: BP 120/76 (BP Location: Right arm, Patient Position: Sitting, Cuff Size: Adult Large) Pulse 53 Ht 1.676 m (5' 6) Wt 72.2 kg (159 lb 3.2 oz) SpO2 99% BMI 25.70 kg/m?? Constitutional: Skin: Head: Eyes: ENT: Neck: Chest: Cardiac: Abdomen: Vascular: Extremities and Back: Neurological: ASSESSMENT: May be stable angina. Has not tried angina. ? RECOMMENDATIONS: Continue present meds I offered graft and coronary angiography with possible intervention but he wants to watch and trial NTG for now, will notify us if symptoms progress or worsen. Recent Lab Results: LIPID RESULTS: Lab Results Component Value Date CHOL 134 05/24/2020 HDL 62 05/24/2020 LDL 60 05/24/2020 TRIG 59 05/24/2020 CHOLHDLRATIO 3.3 04/16/2015 LIVER [...] RESULTS: Lab Results Component Value Date NA 139 05/24/2020 POTASSIUM 4.8 05/24/2020 CHLORIDE 108 05/24/2020 CO2 28 05/24/2020 ANIONGAP 3 05/24/2020 GLC 100 (H) 05/24/2020 BUN 18 05/24/2020 CR 0.99 05/24/2020 GFRESTIMATED 77 05/24/2020 GFRESTBLACK 89 05/24/2020 DAJA 9.3 05/24/2020 A1C RESULTS: Lab Results Component Value Date A1C 6.0 05/23/2015 INR RESULTS: Lab Results Component Value Date INR 1.15 (H) 05/22/2015 INR 1.23 (H) 05/22/2015 We greatly appreciate the opportunity to be involved in the care of your patient, Russel Billingsley. Sincerely, Anthony Ballesteros MD? CC No referring provider defined for this encounter. ? documented in this encounter Plan of Treatment Scheduled Referrals Name Type Priority Associated Diagnoses Order S chedule Follow-Up with Referral Routine Coronary artery disease Ex pected: 12/13/2021 Tax Services Intern involving solomon heart, (Jailyn roximate), angina presence Expires: 11/2021 unspecified, unspecified vessel or lesion type Dyslipidemia documented as of this encounter Procedures Procedure Name Priority Date/Time Associated Diagnosis Comme nts EKG 12-LEAD Routine 12/13/2020 12:08 PM Coronary artery Resul ts for this COMPLETE W/READ - CDT disease involving flavio sharma are in CLINICS solomon heart, angina the res ults presence section. unspecified, unspecified vessel or lesion type documented in this encounter Results EKG 12-lead complete w/read - Clinics (performed today) (12/13/2020 12:08 PM CDT) Narrative This result has an attachment that is no t available. Anthony Ballesteros MD ECG ORDERABLES documented in this encounter Visit Diagnoses Diagnosis Coronary artery disease involving solomon heart, angina presence unspecified, unspecified vessel or lesion type - Prim stacy Dyslipidemia Other and unspecified hyperlipidemia documented in this encounter Additional Health Concerns Assessment Noted Time PHQ-9 Depression Total Score: 3 05/25/2020 7:02 AM DOUBLE END TENONER OPERATOR documented as of this encounter Care Teams Engraver Picture Relationship Specialty Start Date End Date Alfred Rios, PCP - General Family Practice 04/18/15 Alfred Rios, Assigned PCP 09/01/20 [id number] [address] [address] Murali Cadet MD Assigned Heart and 09/25/20 12/21/20 [address] [place] [address] documented as of this encounter
--- OUTSIDE RECORDS SUMMARY | 2022-04-28 22:53 | XMS_ITS | Encounter Summary ---
:1950 Author Organization [place] Address [facility] [place] [address] Care Team Providers Name Role Phone Alfred Rios MD Primary Care Provider [phone] Alfred Rios MD Unavailable Anthony Ballesteros MD Unavailable Reason for Visit Reason Comments Medication Refill Encounter Details Date Type Department Care Team Description 01/04/2021 Refill [facility] Alfred Rios, Medication Refill [place] [address] [place] [address] [place] [id number] (Wo rk) Social History Tobacco Use Types [...] encounter Miscellaneous Notes Telephone Encounter - Taylor Iglesias, RN - 01/06/2021 12:15 PM CDT Routing refill request to provider for review/approval because: Failed protocol for naproxen - due for ALT, AST, due to age and due for cbc documented in this encounter Plan of Treatment Not on filedocumented as of this encounter Visit Diagnoses Diagnosis Bilateral hip pain Pain in joint, pelvic region and thigh documented in this encounter Additional Health Concerns Assessment Noted Time PHQ-9 Depression Total Score: 3 05/25/2020 7:02 AM PATTERN PAINTER documented as of this encounter Care Teams Certified Marine Mechanic Relationship Specialty Start Date End Date Alfred Rios, PCP - General Family Practice 04/18/15 Alfred Rios, Assigned PCP 09/01/20 [id number] [address] [id number] Anthony Ballesteros, Assigned Heart and 12/22/20 Vascular Provider [address] [place] [id number] documented as of this encounter
--- OUTSIDE RECORDS SUMMARY | 2022-04-28 22:53 | XMS_ITS | Encounter Summary ---
:1950 Author Organization [place] Address [address] [place] [address]. [place] [address] Care Team Providers Name Role Phone Alfred Rios MD Primary Care Provider [phone] Alfred Rios MD Unavailable Anthony Ballesteros MD Unavailable Reason for Visit Reason Comments Medication Refill Encounter Details Date Type Department Care Team Description 05/12/2020 Refill [facility] Alfred Rios, Medication Refill Yvonne [place] [place] [address] [place] [address] [phone] Social History Tobacco Use Types Packs/Day Years [...] been in contact with No / Unsure 04/22/2020 1:20 PM CDT someone who was confirmed or suspected to have Coronavirus / COVID-19? documented as of this encounter Miscellaneous Notes Telephone Encounter - Regina Burrows RN - 05/14/2020 12:58 PM CST Prescription approved per [facility] Refill Protocol. Regina Burrows RN ESSIONAL DEVELOPMENT INSTRUCTOR documented in this encounter Plan of Treatment Not on filedocumented as of this encounter Visit Diagnoses Diagnosis Essential hypertension, benign documented in this encounter Additional Health Concerns Assessment Noted Time PHQ-9 Depression Total Score: 5 04/15/2019 7:03 AM CDT documented as of this encounter Care Teams Flour Mixer Relationship Specialty Start Date End Date Alfred Rios, PCP - General Family Practice 04/18/15 Alfred Rios, Assigned PCP 03/22/1506/01 [address] [address] [id number] Anthony Ballesteros, Assigned Heart and 05/03/20 09/24/20 Vascular Provider [address] [place] [address] documented as of this encounter
--- OUTSIDE RECORDS SUMMARY | 2022-04-28 22:53 | XMS_ITS | Encounter Summary ---
:1950 Author Organization [place] Address [address] [place] [address]. [place] [address] Care Team Providers Name Role Phone Alfred Rios MD Primary Care Provider [phone] Alfred Rios MD Unavailable Anthony Ballesteros MD Unavailable Reason for Visit Reason Comments Medication Refill Encounter Details Date Type Department Care Team Description 05/15/2020 Refill [facility] Alfred Rios, Medication Refill Yvonne [place] [place] [address] [place] [address] [phone] Social History Tobacco Use Types Packs/Day Years [...] this encounter Miscellaneous Notes Telephone Encounter - Marsha Madsen RN - 05/15/2020 2:29 PM CST Medication is being filled for 1 time refill only due to: Patient needs labs . Pt has an upcoming appt Marsha Madsen RN, BSN OR ENGINEERING ASSOCIATE documented in this encounter Plan of Treatment Not on filedocumented as of this encounter Visit Diagnoses Diagnosis Hyperlipidemia with target LDL less than 100 Other and unspecified hyperlipidemia documented in this encounter Additional Health Concerns Assessment Noted Time PHQ-9 Depression Total Score: 5 04/15/2019 7:03 AM CDT documented as of this encounter Care Teams Mess Attendant Crew Relationship Specialty Start Date End Date Alfred Rios, PCP - General Family Practice 04/18/15 Alfred Rios, Assigned PCP 03/22/1506/01 [address] [address] [address] Anthony Ballesteros, Assigned Heart and 05/03/20 09/24/20 Vascular Provider [address] [place] [address] documented as of this encounter
--- OUTSIDE RECORDS SUMMARY | 2022-04-28 22:53 | XMS_ITS | Encounter Summary ---
:1950 Author Organization [place] Address [facility] [place] [address] Care Team Providers Name Role Phone Alfred Rios MD Primary Care Provider [phone] Alfred Rios MD Unavailable Encounter Details Date Type Department Care Team Description 09/11/2019 Travel Social History Tobacco Use Types Packs/Day [...] documented as of this encounter Care Teams Psychiatric Social Worker Relationship Specialty Start Date End Date Alfred Rios MD PCP - General Family Practice 04/18/15 Alfred Rios MD Assigned PCP 03/22/15 06/01/20 [address] [place] [address] documented as of this encounter
--- OUTSIDE RECORDS SUMMARY | 2022-04-28 22:53 | XMS_ITS | Encounter Summary ---
:1950 Author Organization [place] Address [facility] [address] Care Team Providers Name Role Phone Alfred Rios MD Primary Care Provider [phone] Alfred Rios MD Unavailable Anthony Ballesteros MD Unavailable Alfred Rios MD Unavailable Alfred Rios MD Unavailable Murali Cadet MD Unavailable Anthony Ballesteros MD Unavailable Reason for Visit Reason Onset Date Comments Refill Request 11/22/2019 Encounter Details Date Type Department Care Team Description 11/22/[address] [facility] Alfred Rios, Refill Request Yvonne [place] [address] [facility], [address] [place] [address] [place] [address] [place] [address] [phone] Social History Tobacco Use Types Packs/Day Years [...] Telephone Encounter - Regina Burrows RN - 11/22/2019 8:52 AM CDT Images from the original note were not included. Routing refill request to provider for review/approval because: Labs not current: LDL Cholesterol Calculated Date Value Ref Range Status 09/12/2018 68 <100 mg/dL Final Comment: Desirable: <100 mg/dl Regina Burrows RN Telephone Encounter - Regina Burrows RN - 11/22/2019 8:52 AM CDT Prescription approved per [facility] Refill Protocol - Metoprolol Regina Burrows RN documented in this encounter Plan of Treatment Not on filedocumented as of this encounter Visit Diagnoses Diagnosis Hyperlipidemia with target LDL less than 100 Other and unspecified hyperlipidemia Essential hypertension, benign documented in this encounter Additional Health Concerns Assessment Noted Time PHQ-9 Depression Total Score: 5 04/15/2019 7:03 AM CDT documented as of this encounter Care Teams Still Photographer Relationship Specialty Start Date End Date Alfred Rios, PCP - General Family Practice 04/18/15 Alfred Rios, Assigned PCP 03/22/1506/01 [address] [address] [address] Anthony Ballesteros, Assigned Heart and 05/03/20 09/24/20 Vascular Provider [address] [place] [address] Alfred Rios, Assigned PCP 09/01/20 [address] [address] Alfred Rios, Assigned PCP 06/02/20 [address] [address] [address] Murali Cadte MD Assigned Heart and 09/25/20 12/21/20 [address] Vascular Provider [place] [id number] Anthony Ballesteros, Assigned Heart and 12/22/20 MD Vascular Provider [address] [place] [address] documented as of this encounter
--- OUTSIDE RECORDS SUMMARY | 2022-04-28 22:53 | XMS_ITS | Encounter Summary ---
:1950 Author Organization [place] Address [address] [place] [address]. [place] [address] Care Team Providers Name Role Phone Alfred Rios MD Primary Care Provider [phone] Alfred Rios MD Unavailable Murali Cadet MD Unavailable Anthony Ballesteros MD Unavailable Reason for Visit Reason Comments Medication Refill Encounter Details Date Type Department Care Team Description 10/10/2020 Refill [facility] Nikki Duque, Medication Refill Yvonne [place] [place] [address] [place] [address] [phone] Social History Tobacco Use Types Packs/Day Years [...] been in contact with No / Unsure 10/02/2020 12:50 PM CDT someone who was confirmed or suspected to have Coronavirus / COVID-19? documented as of this encounter Miscellaneous Notes Telephone Encounter - Sherri Deluna, RN - 10/11/2020 10:51 AM CDT Prescription approved per [facility] Refill Protocol. Sherri Deluna, RN [facility] -- Triage Nurse documented in this encounter Plan of Treatment Not on filedocumented as of this encounter Visit Diagnoses Diagnosis Coronary artery disease involving josue ry bypass graft of [place] heart without angina pectoris documented in this encounter Additional Health Concerns Assessment Noted Time PHQ-9 Depression Total Score: 3 05/25/2020 7:02 AM ORCHID SUPERINTENDENT documented as of this encounter Care Teams Dry Pan Charger Relationship Specialty Start Date End Date Alfred Rios, PCP - General Family Practice 04/18/15 Alfred Rios, Assigned PCP 09/01/20 [address] [address] [address] Murali Cadet MD Assigned Heart and 09/25/20 12/21/20 [address] [place] [address] Anthony Ballesteros, Assigned Heart and 12/22/20 Vascular Provider [address] [place] [address] documented as of this encounter
--- OUTSIDE RECORDS SUMMARY | 2022-04-28 22:53 | XMS_ITS | Encounter Summary ---
:1950 Author Organization [place] Address [address] [place] [address] Care Team Providers Name Role Phone Alfred Rios MD Primary Care Provider [phone] Alfred Rios MD Unavailable Murali Cadet MD Unavailable Encounter Details Date Type Department Care Team Description 12/13/2020 Travel Social History Tobacco Use Types Packs/Day [...] Depression Total Score: 3 05/25/2020 7:02 AM CROSSBAR SWITCH ADJUSTER documented as of this encounter Care Teams Drafter Chief Design Relationship Specialty Start Date End Date Alfred Rios, PCP - General Family Practice 04/18/15 Alfred Rios, Assigned PCP 09/01/20 [address] [address] [id number] Murali Cadet MD Assigned Heart and 09/25/20 12/21/20 [address] [place] [address] [place] [address] documented as of this encounter
--- OUTSIDE RECORDS SUMMARY | 2022-04-28 22:53 | XMS_ITS | Encounter Summary ---
:1950 Author Organization [place] Address [address] [facility] [place] [address] Care Team Providers Name Role Phone Alfred Rios MD Primary Care Provider Anthony Ballesteros MD Unavailable Alfred Rios MD Unavailable Reason for Visit Reason Comments Surgical Followup US results Encounter Details Date Type Department Care Team Description 09/11/[address] [facility] Murali Cadet at stenosis Surgery [facility] MD Gabe of right carotid [place] [address] artery (Primary Dx) [address] [place] [address] [place], [place] [phone] [address] (Work) [phone] Social History Tobacco Use Types Packs/Day Years [...] been in contact with No / Unsure 09/11/2020 3:04 PM SEAFOOD FISHERMAN someone who was confirmed or suspected to have Coronavirus / COVID-19? documented as of this encounter Last Filed Vital Signs Vital Sign Reading Time Taken Comments Blood Pressure 100/68 09/11/2020 3:06 PM SEAFOOD FISHERMAN Pulse 60 09/11/2020 3:06 PM SEAFOOD FISHERMAN Temperature - - Respiratory Rate 16 09/11/2020 3:06 PM SEAFOOD FISHERMAN Oxygen Saturation 99% 09/11/2020 3:06 PM SEAFOOD FISHERMAN Inhaled Oxygen Concentration - - Weight 73.9 kg (163 lb) 09/11/2020 3:06 PM SEAFOOD FISHERMAN Height 167.6 cm (5' 6) 09/11/2020 3:06 PM SEAFOOD FISHERMAN Body Mass Index 26.31 09/11/2020 3:06 PM SEAFOOD FISHERMAN documented in this encounter Progress Notes Murali Cadet MD - 09/11/2020 3:30 PM CST Anthony Chun is a 70-year-old gentleman with hypertension, hyperlipidemia, and prior tobacco abuse who presents today for 2-year follow-up of his moderate asymptomatic right carotid stenosis. He is status post CABG in 2014. Over the past 2 years he denies stroke, symptoms of TIA, or amaurosis. At today's visit he is without complaints. Exam: Fit appearing male alert and oriented x3. Blood pressure 100/68 with a pulse of 60. 2+ radial pulses bilaterally. Neurologic exam nonfocal. Imaging: RIGHT CAROTID ULTRASOUND 09/11/2020 2:36 PM ?? HISTORY: History of right carotid artery stenosis. Stenosis of right carotid artery. ?? COMPARISON: 06/01/2017 ?? RIGHT CAROTID FINDINGS: Plaque at the carotid bulb and internal carotid artery. Right ICA PSV: 210 cm/sec. Right ICA EDV: 60 cm/sec. Right ICA/CCA PSV Ratio: 1.74 These indicate 50 - 69% diameter stenosis of the right ICA. Right Vertebral: Antegrade flow. Right ECA: Antegrade flow. ?? Causes of Decreased Accuracy: None. ?? IMPRESSION: 50-69% diameter stenosis of the right ICA relative to the distal ICA diameter, unchanged. ?? YVONNE SEXTON, ASSESSMENT: 1. Moderate 50-69% right ICA stenosis likely on the lower end of that range. He remains asymptomaticand not yet in need of repair. Previous imaging has documented minimal left ICA stenosis. RECOMMENDATION: I reviewed all the above with Pipo. I have no carotid concerns. He will continue his medical regimenincluding daily aspirin. Vascular surgical follow-up will be with me in 2 years for repeat bilateralcarotid ultrasonography. Total time of this encounter was [address] Cadet MD OOD FISHERMAN documented in this encounter Plan of Treatment Not on filedocumented as of this encounter Visit Diagnoses Diagnosis Asymptomatic stenosis of right carotid a rtery - Primary documented in this encounter Additional Health Concerns Assessment Noted Time PHQ-9 Depression Total Score: 3 05/25/2020 7:02 AM SEAFOOD FISHERMAN documented as of this encounter Care Teams Threader Relationship Specialty Start Date End Date Alfred Rios, PCP - General Family Practice 04/18/15 Anthony Ballesteros, Assigned Heart and 05/03/20 09/24/20 Vascular Provider [address] [place] [place] [id number] Alfred Rios, Assigned PCP 09/01/20 [address] [address] documented as of this encounter
--- OUTSIDE RECORDS SUMMARY | 2022-04-28 22:53 | XMS_ITS | Encounter Summary ---
:1950 Author Organization [place] Address [facility] access hospital[facility] [place] [address] Care Team Providers Name Role Phone Alfred Rios MD Primary Care Provider [phone] Alfred Rios MD Unavailable Anthony Ballesteros MD Unavailable Reason for Visit Reason Comments Medication Refill Encounter Details Date Type Department Care Team Description 02/24/2021 Refill [facility] Nikki Duque, Medication Refill [place] [address] [address] [address] [phone] [place] [id number] (Wo rk) Social History Tobacco Use Types Packs/Day Years Used Date Smoking Tobacco: Former Cigarettes 1 35 Quit : 10/22/1999 Smokeless Tobacco: Never Alcohol Use Standard Drinks/Week Comments Yes 0 (1 standard drink = 0.6 oz pure alcoho l) One beer most days. Sex Assigned at Date Recorded Male 12/31/2020 1:31 PM CDT documented as of this encounter Miscellaneous Notes Telephone Encounter - Teresita Easley RN - 02/25/2021 4:53 PM CDT Prescription approved per [facility] protocol. Teresita Easley RN on 02/25/2021 at 4:53 PM documented in this encounter Plan of Treatment Not on filedocumented as of this encounter Visit Diagnoses Diagnosis Coronary artery disease involving josue ry bypass graft of quechan heart without angina pectoris documented in this encounter Additional Health Concerns Assessment Noted Time PHQ-9 Depression Total Score: 3 05/25/2020 7:02 AM INFORMATION SCIENTIST documented as of this encounter Care Teams Art Glass Designer Relationship Specialty Start Date End Date Alfred Rios, PCP - General Family Practice 04/18/15 Alfred Rios, Assigned PCP 09/01/20 [address] [address] [address] Anthony Ballesteros, Assigned Heart and 12/22/20 Vascular Provider [address] [place] [address] documented as of this encounter
--- OUTSIDE RECORDS SUMMARY | 2022-04-28 22:53 | XMS_ITS | Encounter Summary ---
:1950 Author Organization [place] Address [address] [facility] [place] [address] Care Team Providers Name Role Phone Alfred Rios MD Primary Care Provider [phone] Alfred Rios MD Unavailable Anthony Ballesteros MD Unavailable Reason for Visit Reason Comments Physical Derm Problem Itchy, raised patchy area ab ove both ears Encounter Details Date Type Department Care Team Description 05/24/2020 Office Visit [facility] Alfred Rios Encounter for Medicare annual wellness exam (Primary Dx); Clinic DuncanJavan Peterson MD Hyperlipidemia with target LDL less than 100; [address] [place] [address] Essential hypertension, benign; [place], [place] Need for v accination [phone] [id number] Social History Tobacco Use Types Packs/Day Years [...] been in contact with No / Unsure 05/24/2020 9:28 AM APPLIED COMPUTER SCIENCE PROFESSOR someone who was confirmed or suspected to have Coronavirus / COVID-19? documented as of this encounter Last Filed Vital Signs Vital Sign Reading Time Taken Comments Blood Pressure 110/60 05/24/2020 10:19 AM APPLIED COMPUTER SCIENCE PROFESSOR Pulse 66 05/24/2020 9:51 AM APPLIED COMPUTER SCIENCE PROFESSOR Temperature 36.4 ??C (97.5 ??F) 05/24/2020 9:51 AM APPLIED COMPUTER SCIENCE PROFESSOR Respiratory Rate - - Oxygen Saturation 100% 05/24/2020 9:51 AM APPLIED COMPUTER SCIENCE PROFESSOR Inhaled Oxygen Concentration - - Weight 73.5 kg (162 lb) 05/24/2020 9:51 AM APPLIED COMPUTER SCIENCE PROFESSOR Height 167.6 cm (5' 6) 05/24/2020 9:51 AM APPLIED COMPUTER SCIENCE PROFESSOR Body Mass Index 26.15 05/24/2020 9:51 AM APPLIED COMPUTER SCIENCE PROFESSOR documented in this encounter Patient Instructions Patient InstructionsGeovanna Doll - 05/24/2020 10:00 AM CST Patient Education Personalized Prevention Plan You are due for the preventive services outlined below. Your care team is available to assist you inscheduling these services. If you have already completed any of these items, please share that information with your care team to update in your medical record. Health Maintenance Due Topic Date Due ??? ANNUAL REVIEW OF HM ORDERS 1950 ??? Asthma Action Plan - yearly 1950 ??? Zoster (Shingles) Vaccine (1 of 2) 02/08/2000 ??? Annual Wellness Visit 09/13/2019 ??? Cholesterol Lab 09/13/2019 ??? Asthma Control Test 10/14/2019 ??? Flu Vaccine (1) 03/12/2020 ??? Discuss Advance Care Planning 04/16/2020 Patient Education Personalized Prevention Plan You are due for the preventive services outlined below. Your care team is available to assist you inscheduling these services. If you have already completed any of these items, please share that information with your care team to update in your medical record. Health Maintenance Due Topic Date Due ??? ANNUAL REVIEW OF HM ORDERS 1950 ??? Asthma Action Plan - yearly 1950 ??? Zoster (Shingles) Vaccine (1 of 2) 02/08/2000 ??? Annual Wellness Visit 09/13/2019 ??? Cholesterol Lab 09/13/2019 ??? Asthma Control Test 10/14/2019 ??? Flu Vaccine (1) 03/12/2020 ??? Discuss Advance Care Planning 04/16/2020 IED COMPUTER SCIENCE PROFESSOR documented in this encounter Progress Notes Geovanna Doll - 05/24/2020 10:00 AM CST Pre-Visit Planning May 24 2020 / Wednesday 0935 / [address]a Dr. Rios Appointment Notes for this encounter: Physical Questionnaires Reviewed/Assigned Additional questionnaires assigned Patient preferred phone number: [phone] Unable to reach. Left voicemail. Advised patient to call clinic back at [phone]. IED COMPUTER SCIENCE PROFESSOR Alfred Rios MD - 05/24/2020 10:00 AM CST SUBJECTIVE: Anthony Chun is a 70 year old male who presents for Preventive Visit. Patient has been advised of split billing requirements and indicates understanding: Yes Are you in the first 12 months of your Medicare Part B coverage? No Physical Health: Answers for HPI/ROS submitted by the patient on 05/24/2020 Annual Exam: In general, how would you rate your overall physical health?: good Do you usually eat at least 4 servings of fruit and vegetables a day, include whole grains & fiber, and avoid regularly eating high fat or junk foods? : No Taking medications regularly:: Yes Medication side effects:: None Activities of Daily Living: no assistance needed Home safety: no safety concerns identified Hearing Impairment:: need to ask people to speak up or repeat themselves, difficulty understanding soft or whispered speech In the past 6 months, have you been bothered by leaking of urine?: No hearing loss: Yes arthralgias: Yes mood changes: Yes myalgias: Yes Skin sensation changes: Yes impotence: Yes In general, how would you rate your overall mental or emotional health?: fair Additional concerns today:: Yes Duration of exercise:: 45-60 minutes If you checked off any problems, how difficult have these problems made it for you to do your work, take care of things at home, or get along with other people?: Not difficult at all PHQ9 TOTAL SCORE: 3 MINDA 7 TOTAL SCORE: 4 PHQ-2 Score: (P) 2 Do you feel safe in your environment? Yes Have you ever done Advance Care Planning? (For example, a Health Directive, POLST, or a discussion with a medical provider or your loved ones about your wishes): Yes, patient states has an Advance CarePlanning document and will bring a copy to the clinic. Additional concerns to address? No Fall risk: Fallen 2 or more times in the past year?: No Any fall with injury in the past year?: No click delete button to remove this line now Cognitive Screenin) Repeat 3 items (Leader, Season, Table) 2) Clock draw: NORMAL 3) 3 item recall: Recalls 3 objects Results: 3 items recalled: COGNITIVE IMPAIRMENT LESS LIKELY Mini-CogTM Copyright S Moe. Licensed by the author for use in [facility] Optisense; reprintedwith permission (arlet@[facility]). All rights reserved. Do you have sleep apnea, excessive snoring or daytime drowsiness?: no Rash Onset: 11 months ?? Description: Location: above ears / bilaterally Character: raised Itching (Pruritis): YES ?? Progression of Symptoms: same ?? Accompanying Signs & Symptoms: Fever: no Body aches or joint pain: YES- bad left knee & hip Sore throat symptoms: no Recent cold symptoms: no ?? History: Previous similar rash: no ?? Precipitating factors: Exposure to similar rash: no New exposures: None Recent travel: no ?? Alleviating factors: none Therapies Tried and outcome: dandruff shampoo Reviewed and updated as needed this visit by clinical staff Tobacco Allergies Meds Med Hx Surg Hx Fam Hx Soc Hx Reviewed and updated as needed this visit by Provider Social History Tobacco Use ??? Smoking status: Former Smoker Packs/day: 1.00 Years: 35.00 Pack years: 35.00 Types: Cigarettes Quit date: 10/22/1999 Years since quittin.6 ??? Smokeless tobacco: Never Used Substance Use Topics ??? Alcohol use: Yes Alcohol/week: 0.0 standard drinks Comment: 1-2 beers daily Current providers sharing in care for this patient include: Patient Care Team: Alfred Rios MD as PCP - General (Family Practice) Alfred Rios MD as Assigned PCP Anthony Ballesteros MD as Assigned Heart and Vascular Provider The following health maintenance items are reviewed in [facility] and correct as of today: Health Maintenance Topic Date Due ??? ANNUAL REVIEW OF HM ORDERS 1950 ??? ASTHMA ACTION PLAN 1950 ??? ZOSTER IMMUNIZATION (1 of 2) 02/08/2000 ??? BMP 09/13/2019 ??? LIPID 09/13/2019 ??? ASTHMA CONTROL TEST 10/14/2019 ??? INFLUENZA VACCINE (1) 03/12/2020 ??? MEDICARE ANNUAL WELLNESS VISIT 05/24/2021 ??? FALL RISK ASSESSMENT 05/24/2021 ??? DTAP/TDAP/TD IMMUNIZATION (2 - Td) 07/12/2021 ??? ADVANCE CARE PLANNING 05/24/2025 ??? COLORECTAL CANCER SCREENING 07/24/2026 ??? HEPATITIS C SCREENING Completed ??? PHQ-2 Completed ??? Pneumococcal Vaccine: 65+ Years Completed ??? AORTIC ANEURYSM SCREENING (SYSTEM ASSIGNED) Completed ??? Pneumococcal Vaccine: Pediatrics (0 to 5 Years) and At-Risk Patients (6 to 64 Years) Aged Out ??? IPV IMMUNIZATION Aged Out ??? MENINGITIS IMMUNIZATION Aged Out ??? HEPATITIS B IMMUNIZATION Aged Out ROS: Constitutional, HEENT, cardiovascular, pulmonary, GI, , musculoskeletal, neuro, skin, endocrine and psych systems are negative, except as otherwise noted. OBJECTIVE: BP 110/60 Pulse 66 Temp 97.5 ??F (36.4 ??C) (Oral) Ht 1.676 m (5' 6) Wt 73.5 kg (162 lb) SpO2 100% BMI 26.15 kg/m?? Estimated body mass index is 26.15 kg/m?? as calculated from the following: Height as of this encounter: 1.676 m (5' 6). Weight as of this encounter: 73.5 kg (162 lb). EXAM: GENERAL: healthy, alert and no distress EYES: Eyes grossly normal to inspection, PERRL and conjunctivae and sclerae normal HENT: ear canals and TM's normal, nose and mouth without ulcers or lesions NECK: no adenopathy, no asymmetry, masses, or scars and thyroid normal to palpation RESP: lungs clear to auscultation - no rales, rhonchi or wheezes CV: regular rate and rhythm, normal S1 S2, no S3 or S4, no murmur, click or rub, no peripheral edemaand peripheral pulses strong ABDOMEN: soft, nontender, no hepatosplenomegaly, no masses and bowel sounds normal MS: no gross musculoskeletal defects noted, no edema SKIN: no suspicious lesions or rashes NEURO: Normal strength and tone, mentation intact and speech normal PSYCH: mentation appears normal, affect normal/bright Diagnostic Test Results: Labs reviewed in [facility] ASSESSMENT / PLAN: ICD-10-CM 1. Encounter for Medicare annual wellness exam Z00.00 2. Hyperlipidemia with target LDL less than 100 E78.5 atorvastatin (LIPITOR) 40 MG tablet Lipid panel reflex to direct LDL Fasting 3. Essential hypertension, benign I10 metoprolol tartrate (LOPRESSOR) 25 MG tablet Basic metabolic panel (Ca, Cl, CO2, Creat, Gluc, K, Na, BUN) 4. Need for vaccination Z23 Patient has been advised of split billing requirements and indicates understanding: Yes COUNSELING: Reviewed preventive health counseling, as reflected in patient instructions Estimated body mass index is 26.15 kg/m?? as calculated from the following: Height as of this encounter: 1.676 m (5' 6). Weight as of this encounter: 73.5 kg (162 lb). He reports that he quit smoking about 20 years ago. His smoking use included cigarettes. [...] Cohorts Equation Calculator Breast Cancer Risk Calculator BRCA-Related Cancer Risk Assessment: FHS-7 Tool FRAX Risk Assessment ICSI Preventive Guidelines Dietary Guidelines for Americans, 2009 USDA's MyPlate ASA Prophylaxis Lung CA Screening Alfred Rios MD [facility] IED COMPUTER SCIENCE PROFESSOR documented in this encounter Plan of Treatment Not on filedocumented as of this encounter Procedures Procedure Name Priority Date/Time Associated Diagnosis Comme nts LIPID REFLEX TO Routine 05/24/2020 10:18 Hyperlipidemia with R esults for this DIRECT LDL PANEL AM APPLIED COMPUTER SCIENCE PROFESSOR target LDL less than pro cedure are in 100 the results section. BASIC METABOLIC Routine 05/24/2020 10:18 Essential hypertensio n, Results for this PANEL AM APPLIED COMPUTER SCIENCE PROFESSOR benign procedure are i n the results section. documented in this encounter Results (ABNORMAL) Basic metabolic panel (Ca, Cl, CO2, Creat, Gluc, K, Na, BUN) (05/24/2020 10:18 AM APPLIED COMPUTER SCIENCE PROFESSOR) [facility] Method Time Signature Sodium 139 133 - 144 05/26/2020 [place] mmol/L 8:59 AM [facility] Potassium 4.8 3.4 - 5.3 05/26/2020 [facility] mmol/L 8:59 AM [facility] Chloride 108 94 - 109 05/26/2020 [place] mmol/L 8:59 AM [facility] Carbon Dioxide 28 20 - 32 05/26/2020 [facility] mmol/L 10:00 AM [facility] Anion Gap 3 3 - 14 05/26/2020 [place] mmol/L 10:00 AM [facility] Glucose 100 (H) 70 - 99 05/26/2020 [place] mg/dL 10:00 AM [facility] Urea Nitrogen 18 7 - 30 05/26/2020 [place] mg/dL 10:00 AM [facility] Creatinine 0.99 0.66 - 05/26/2020 [place] 1.25 mg/dL 10:00 AM [facility] GFR Estimate 77 >60 05/26/2020 [place] mL/min/{1. 10:00 AM [facility] 73_m2} HOSPITAL Comment: Non GFR Calc Starting 06/28/2018, serum creatinine ba sed estimated GFR (eGFR) will be calculated using the Chronic Kidney Dise [facility] Epidemiology Collaboration (CKD-EPI) equation. GFR Estimate If 89 >60 mL/min/{1.73_m2} 05/26/2020 10 :00 AM [facility] Comment: GFR Calc Starting 06/28/2018, serum creatinine ba sed estimated GFR (eGFR) will be calculated using the Chronic Kidney Dise ase Epidemiology Collaboration (CKD-EPI) equation. Calcium 9.3 8.5 - 10.1 mg/dL 05/26/2020 10:00 AM [facility] Specimen Anatomical Collection Method Collection Time Receive d Time (Source) Location / / Volume Laterality Blood specimen 05/24/2020 10:18 0 (specimen) AM APPLIED COMPUTER SCIENCE PROFESSOR 10:23 AM APPLIED COMPUTER SCIENCE PROFESSOR Alfred Rios MD LAB - BLOOD ORDERABLES Performing Organization Address City/State/ZIP Code Phon e Number M [facility] [address] [id number] [facility] [address] [place], [place] [address] [facility] [address] [address], [place] [phone] Lipid panel reflex to direct LDL Fasting (05/24/2020 10:18 AM APPLIED COMPUTER SCIENCE PROFESSOR) Analysis Performed At Patho logist Time Signature Cholesterol 134 <200 mg/dL 05/26/2020 [facility] 10:00 AM [facility] Triglycerides 59 <150 mg/dL 05/26/2020 [place] 10:00 AM [facility] HDL Cholesterol 62 >39 mg/dL 05/26/2020 [place] 10:00 AM [facility] LDL Cholesterol 60 <100 mg/dL 05/26/2020 [facility] Calculated 10:00 AM [facility] Comment: Desirable: <100 mg/dl Non HDL Cholesterol 72 <130 mg/dL 05/26/2020 10:00 AM [facility] Specimen Anatomical Collection Method Collection Time Receive d Time (Source) Location / / Volume Laterality Blood specimen 05/24/2020 10:18 0 (specimen) AM APPLIED COMPUTER SCIENCE PROFESSOR 10:23 AM APPLIED COMPUTER SCIENCE PROFESSOR Alfred Rios MD LAB - BLOOD ORDERABLES Performing Organization Address City/State/ZIP Code Phon e Number M [facility] [address] [address] [facility] [address] [address], [place] [phone] documented in this encounter Visit Diagnoses Diagnosis Encounter for Medicare annual wellness e xam - Primary Routine general medical examination at a health care facility Hyperlipidemia with target LDL less than 100 Other and unspecified hyperlipidemia Essential hypertension, benign Need for vaccination Need for prophylactic vaccination and in oculation against unspecified single disease documented in this encounter Additional Health Concerns Assessment Noted Time PHQ-9 Depression Total Score: 3 05/25/2020 7:02 AM APPLIED COMPUTER SCIENCE PROFESSOR documented as of this encounter Care Teams Wellness Manager Relationship Specialty Start Date End Date Alfred Rios, PCP - General Family Practice 04/18/15 Alfred Rios, Assigned PCP 03/22/1506/01 [address] [id number] Anthony Ballesteros, Assigned Heart and 05/03/20 09/24/20 Vascular Provider [address] [place] [address] documented as of this encounter
--- OUTSIDE RECORDS SUMMARY | 2022-04-28 22:53 | XMS_ITS | Encounter Summary ---
:1950 Author Organization [place] Address [address] [facility] [place] [address] Care Team Providers Name Role Phone Alfred Rios MD Primary Care Provider [phone] Alfred Rios MD Unavailable Anthony Ballesteros MD Unavailable Alfred Rios MD Unavailable Alfred Rios MD Unavailable Murali Cadet MD Unavailable Anthony Ballesteros MD Unavailable Reason for Visit Reason Comments Medication Refill Encounter Details Date Type Department Care Team Description 02/17/2020 Refill [facility] Alfred Rios, Medication Refill Yvonne CABRERA [address] [place] [address] [place] [address] [place] [address] [phone] Social History Tobacco Use Types Packs/Day Years Used Date Smoking Tobacco: Former Cigarettes 1 35 Quit : 10/22/1999 Smokeless Tobacco: Never Alcohol Use Standard Drinks/Week Comments Yes 0 (1 standard drink = 0.6 oz pure alcoho l) 1-2 beers daily Sex Assigned at Date Recorded Male 12/31/2020 1:31 PM CDT documented as of this encounter Miscellaneous Notes Telephone Encounter - Sherri Deluna RN - 02/19/2020 12:20 PM CDT Prescription approved per [facility] Refill Protocol. Sherri Deluna RN [facility] -- Triage Nurse documented in this encounter Plan of Treatment Not on filedocumented as of this encounter Visit Diagnoses Diagnosis Essential hypertension, benign documented in this encounter Additional Health Concerns Assessment Noted Time PHQ-9 Depression Total Score: 5 04/15/2019 7:03 AM CDT documented as of this encounter Care Teams Men'S Furnishings Salesperson Relationship Specialty Start Date End Date Alfred Rios, PCP - General Family Practice 04/18/15 Alfred Rios, Assigned PCP 03/22/1506/01 [address] [place] [address] Anthony Ballesteros, Assigned Heart and 05/03/20 09/24/20 Vascular Provider [address] [place] [address] Alfred Rios, Assigned PCP 09/01/20 [address] [place] [address] Alfred Rios, Assigned PCP 06/02/20 [address] [place] [address] Murali Cadet MD Assigned Heart and 09/25/20 12/21/20 [address] [place] [address] Anthony Ballesteros, Assigned Heart and 12/22/20 Vascular Provider [address] [place] [address] documented as of this encounter
--- OUTSIDE RECORDS SUMMARY | 2022-04-28 22:53 | XMS_ITS | Encounter Summary ---
:1950 Author Organization [place] Address [address] [place] [address] Care Team Providers Name Role Phone Alfred Rios MD Primary Care Provider [phone] Anthony Ballesteros MD Unavailable Alfred Rios MD Unavailable Encounter Details Date Type Department Care Team Description 09/11/2020 Travel Social History Tobacco Use Types Packs/Day [...] with No / Unsure 09/11/2020 3:04 PM SORTING MACHINE ATTENDANT someone who was confirmed or suspected to have Coronavirus / COVID-19? documented as of this encounter Plan of Treatment Not on filedocumented as of this encounter Visit Diagnoses Not on filedocumented in this encounter Additional Health Concerns Assessment Noted Time PHQ-9 Depression Total Score: 3 05/25/2020 7:02 AM SORTING MACHINE ATTENDANT documented as of this encounter Care Teams Cooky Packer Relationship Specialty Start Date End Date Alfred Rios, PCP - General Family Practice 04/18/15 Anthony Ballesteros, Assigned Heart and 05/03/20 09/24/20 Vascular Provider [address] [place] [address] Alfred Rios, Assigned PCP 09/01/20 [id number] [place] [address] documented as of this encounter
--- OUTSIDE RECORDS SUMMARY | 2022-04-28 22:53 | XMS_ITS | Encounter Summary ---
:1950 Author Organization [place] Address [address] [facility] [place] [address] Care Team Providers Name Role Phone Alfred Rios MD Primary Care Provider [phone] Anthony Ballesteros MD Unavailable Alfred Rios MD Unavailable Reason for Visit DEBBI Physical Therapy (Routine) - Closed Specialty Diagnoses / Procedures Referred By Contact Refer red To Contact Diagnoses B[place] [address] [place] [address] Referral ID Status Reason Start Date Expiration Date Visits Requ ested Visits Authorized [id number] Closed 08/29/2020 07/11/2021 40 40 Encounter Details Date Type Department Care Team Description 09/18/2020 Therapy Visit [facility] Dorian Pride Bilat eral low back Rehabilitation Services PT pain without [facility] sciatica [address] [facility] [place] [address] [facility] [address] [place], [place] [phone] [address] Social History Tobacco Use Types Packs/Day Years [...] been in contact with No / Unsure 09/18/2020 2:14 PM 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 documented as of this encounter Plan of Treatment Not on filedocumented as of this encounter Procedures Procedure Name Priority Date/Time Associated Diagnosis Comme nts ND THERAPEUTIC Routine 09/18/2020 2:43 PM Bilateral low back EXERCISES. EA 15 MIN CAN FILLING AND CLOSING MACHINE TENDER pain without sciatic a documented in this encounter Visit Diagnoses Diagnosis Bilateral low back pain without sciatica documented in this encounter Additional Health Concerns Assessment Noted Time PHQ-9 Depression Total Score: 3 05/25/2020 7:02 AM CAN FILLING AND CLOSING MACHINE TENDER documented as of this encounter Care Teams Meat Scrubber Relationship Specialty Start Date End Date Alfred Rios, PCP - General Family Practice 04/18/15 Anthony Ballesteros, Assigned Heart and 05/03/20 09/24/20 Vascular Provider [address] [place] [id number] Alfred Rios, Assigned PCP 09/01/20 [address] [place] [address] documented as of this encounter
--- OUTSIDE RECORDS SUMMARY | 2022-04-28 22:53 | XMS_ITS | Encounter Summary ---
:1950 Author Organization [place] Address [address] [place] [address]. [place] [address] Care Team Providers Name Role Phone Alfred Rios MD Primary Care Provider [phone] Alfred Rios MD Unavailable Reason for Visit Reason Comments Medication Refill Encounter Details Date Type Department Care Team Description 09/28/2019 Refill [facility] Alfred Rios, Medication Refill Yvonne CABRERA [address] [place] [address], [address] [place] [address] [place] [address] [place] [address] [phone] Social History Tobacco Use Types Packs/Day Years [...] Telephone Encounter - Marsha Madsen RN - 09/28/2019 7:19 AM CDT FOCUS [employer] sent This was sent in August 2019. Does pt need or did this get put on auto refill? 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
--- OUTSIDE RECORDS SUMMARY | 2022-04-28 22:53 | XMS_ITS | Encounter Summary ---
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
--- OUTSIDE RECORDS SUMMARY | 2022-04-28 22:53 | XMS_ITS | Encounter Summary ---
:1950 Author Organization [place] Address [facility] [place] [address] Care Team Providers Name Role Phone Alfred Rios MD Primary Care Provider [phone] Alfred Rios MD Unavailable Murali Cadet MD Unavailable Anthony Ballesteros MD Unavailable Reason for Visit Reason Onset Date Comments Refill Request 11/05/2020 Encounter Details Date Type Department Care Team Description 11/05/2020 MyC Refill [facility] Alfred Rios, [place] [address] [id number] [phone] Social History Tobacco Use Types Packs/Day Years [...] Telephone Encounter - Teresita Easley RN - 11/07/2020 8:15 AM CDT Prescription approved per [facility] protocol. Teresita Easley RN on 11/07/2020 at 8:15 AM documented in this encounter Plan of Treatment Not on filedocumented as of this encounter Visit Diagnoses Diagnosis Essential hypertension, benign documented in this encounter Additional Health Concerns Assessment Noted Time PHQ-9 Depression Total Score: 3 05/25/2020 7:02 AM VIDEO SPECIALIST documented as of this encounter Care Teams Kapok Machine Operator Relationship Specialty Start Date End Date Alfred Rios, PCP - General Family Practice 04/18/15 Alfred Rios, Assigned PCP 09/01/20 [address] [place] [address] Murali Cadet MD Assigned Heart and 09/25/20 12/21/20 [address] Vascular Provider [place] [id number] Anthony Ballesteros, Assigned Heart and 12/22/20 Vascular Provider [address] [place] [id number] documented as of this encounter
--- OUTSIDE RECORDS SUMMARY | 2022-04-28 22:53 | XMS_ITS | Encounter Summary ---
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 documented as of this encounter Plan of Treatment Not on filedocumented as of this encounter Visit Diagnoses Not on filedocumented in this encounter Additional Health Concerns Assessment Noted Time PHQ-9 Depression Total Score: 3 05/25/2020 7:02 AM PRE PRESS OPERATOR documented as of this encounter Care Teams Resaw Feeder Relationship Specialty Start Date End Date Alfred Rios, PCP - General Family Practice 04/18/15 Alfred Rios, Assigned PCP 03/22/1506/01 [address] [place] [address] Anthony Ballesteros, Assigned Heart and 05/03/20 09/24/20 Vascular Provider [address] [place] [address] documented as of this encounter
--- OUTSIDE RECORDS SUMMARY | 2022-04-28 22:53 | XMS_ITS | Encounter Summary ---
:1950 Author Organization [place] Address [address] [facility] [place] [address] Care Team Providers Name Role Phone Alfred Rios MD Primary Care Provider [phone] Alfred Rios MD Unavailable Reason for Referral Diagnostic Imaging NM (Routine) - Closed Specialty Diagnoses / Procedures Referred By Contact Refer red To Contact Radiology. Diagnoses Coronary artery disease involving [place] coronary artery of [place] heart without angina pectoris Anthony Ballesteros MD Rh Nuclear Medicine Procedures NM Exercise stress test (nuc card) [address] [place] [address] [place] [address] Phone: Fax: Referral ID Status Reason Start Date Expiration Date Visits Requ ested Visits Authorized [id number] Closed 09/06/2019 09/05/2020 1 1 MOTIVE LUBRICATING SYSTEMS CLERK Reason for Visit (Routine) - Closed Specialty Diagnoses / Procedures Referred By Contact Refer red To Contact Cardiology Diagnoses Atherosclerotic heart disease of [place] coronary artery without angina pectoris Rh Cardiac Services Procedures HC MPI SPECT MULTIPLE STUDIES, REST/STRESS EKG STRESS NM EXERCISE [address] [place], [place] [address] Phone: Referral ID Status Reason Start Date Expiration Date Visits Requ ested Visits Authorized [id number] Closed 09/11/2019 09/10/2020 1 1 Encounter Details Date Type Department Care Team Description 09/11/2019 Hospital Encounter [facility] Coronary artery [facility] MD Gabe disease involving [facility] Care [address] [place] coronary [address] artery of [place], [place] [address] heart without angina [address] pectoris Social History Tobacco Use Types Packs/Day Years Used Date Smoking Tobacco: Former Cigarettes 1 35 Quit : 10/22/1999 Smokeless Tobacco: Never Alcohol Use Standard Drinks/Week Comments Yes 0 (1 standard drink = 0.6 oz pure alcoho l) 1-2 beers daily Sex Assigned at Date Recorded Male 12/31/2020 1:31 PM CDT documented as of this encounter Medications at Time of Discharge Medication Sig Dispensed Refills Start Date End Date aspirin 81 MG chewable Take 1 tablet (81 30 tablet 12 2015 tabletIndications: Chronic mg) by mouth daily ischemic heart disease acetaminophen 650 MG Take 650 mg by 100 tablet 0 05/25/2015 01/29/2022 TABSIndications: S/P CABG mouth every 6 (coronary artery bypass hours as needed graft) for mild pain or fever albuterol (PROAIR Inhale 2 puffs 1 Inhaler 1 09/12/2018 HFA/PROVENTIL HFA/VENTOLIN into the lungs HFA) 108 (90 Base) MCG/ACT every 6 hours inhalerIndications: Mild intermittent asthma without complication atorvastatin 40 MG PO Take 1 tablet (40 90 tablet 0 020 11/22/2019 tabletIndications: mg) by mouth daily Hyperlipidemia with target LDL less than 100 diazepam (VALIUM) 5 MG Take 1 tablet (5 10 tablet 0 019 05/24/2020 tabletIndications: mg) by mouth every Adjustment disorder with 6 hours as needed anxious mood for anxiety hydrOXYzine (ATARAX) 25 MG Take 1-2 tablets 30 tablet 0 10/201805/24/2020 tabletIndications: (25-50 mg) by Adjustment disorder with mouth 3 times anxious mood daily as needed for anxiety metoprolol tartrate 25 MG Take 1 tablet (25 180 tablet 0 11/22/2019 PO tabletIndications: mg) by mouth 2 Essential hypertension, times daily benign nitroGLYcerin 0.4 MG SL One tablet under 25 tablet 0 201909/29/2019 sublingual the tongue every 5 tabletIndications: minutes if needed Coronary artery disease for chest pain. involving coronary bypass May repeat every 5 graft of [place] heart minutes for a without angina pectoris maximum of 3 doses in 15 minutes documented as of this encounter Progress Notes Allyn Herrera - 09/11/2019 10:39 AM CST Treadmill nuclear stress test completed. MOTIVE LUBRICATING SYSTEMS CLERK documented in this encounter Plan of Treatment Not on filedocumented as of this encounter Procedures Procedure Name Priority Date/Time Associated Diagnosis Comme nts NM MPI TREADMILL Routine 09/11/2019 11:18 AM Coronary artery R esults for this LOCOMOTIVE LUBRICATING SYSTEMS CLERK disease involving procedure are in [place] coronary the results artery of [place] section. heart without angina pectoris documented in this encounter Results NM Exercise stress test (nuc card) (09/11/2019 11:18 AM LOCOMOTIVE LUBRICATING SYSTEMS CLERK) [facility] gist Method Time Signature Target HR 151 RADIANT Baseline 158 RADIANT Systolic BP Baseline 62 RADIANT Diastolic BP Last Stress 186 RADIANT Systolic BP Last Stress 72 RADIANT Diastolic BP Baseline HR 76 RADIANT Max HR 134 RADIANT Max Predicted HR 89 % RADIANT Exercise 9 min RADIANT duration (min) Exercise 30 sec RADIANT duration (sec) Estimated 10.9 METS RADIANT workload Rate Pressure 24,924.0 RADIANT Product Angina Index 0 RADIANT Left Ventricular 67 % RADIANT EF Anatomical Region Laterality Modality Chest Nuclear Medicine Specimen (Source) Anatomical Location Collection Method / Collectio n Time Received Time / Laterality Volume Narrative 09/11/2019 1:08 PM LOCOMOTIVE LUBRICATING SYSTEMS CLERK ?The nuclear stress test is negative for inducible myocardial ischemia or infarction. ?Left ventricular function is normal. ?The left ventricular ejection fraction at stress is 67%. ?The patient's exercise capacity is above average. ?A prior study was conducted on 08/14/2016. ??This study has no change when compared with the prior study. Stress Findings An exercise stress test was performed fo llowing a Rafael protocol with the patient exercising for 9 minutes and 30 seconds. Heart rate demonstrated a normal response to exercise. Blood pressure demonstra frank a borderline hypertensive response t o exercise. The patient's exercise capacity is above average. The test was stopped due to fatigue. No symptoms were reported by the patient during the stress test. ECG Baseline electrocardiogram demonstrates sinus rhythm and nonspecific ST-T abnormalities. The stress electrocardiogram is negative for inducible ischemic EKG changes. Isotope Administration Nuclear imaging was accomplished using a one day protocol with 33 mCi of technetium tetrofosmin injected at the peak of exercise on 09/11/2019 and 10.5 mCi of technetium tetrofosmin at rest on 09/11/2019. Nuclear Study Quality Final image quality is satisfactory. Perfusion Defect The nuclear stress test is negative for inducible myocardial ischemia or infarction. The left ventricular ejection fraction at stress is 67%. Left ventricular function is normal. Nuclear Prior Study A prior study was conducted on 08/14/2016. This study has no change when compared [...] motion is norm al. Anthony Ballesteros MD IM NM ORDERABLES documented in this encounter Visit Diagnoses Diagnosis Coronary artery disease involving [place] coronary artery of [place] heart without angina pectoris documented in this encounter Additional Health Concerns Assessment Noted Time PHQ-9 Depression Total Score: 5 04/15/2019 7:03 AM CDT documented as of this encounter Care Teams Director Of Speech Pathology Relationship Specialty Start Date End Date Alfred Rios MD PCP - General Family Practice 04/18/15 Alfred Rios MD Assigned PCP 03/22/15 06/01/20 [address] [place] [id number] documented as of this encounter
--- OUTSIDE RECORDS SUMMARY | 2022-04-28 22:53 | XMS_ITS | Encounter Summary ---
:1950 Author Organization [place] Address [address] [place] [address] Care Team Providers Name Role Phone Alfred Rios MD Primary Care Provider [phone] Anthony Ballesteros MD Unavailable Alfred Rios MD Unavailable Encounter Details Date Type Department Care Team Description 09/18/2020 Travel Social History Tobacco Use Types Packs/Day [...] with No / Unsure 09/18/2020 2:14 PM CARE MGR someone who was confirmed or suspected to have Coronavirus / COVID-19? documented as of this encounter Plan of Treatment Not on filedocumented as of this encounter Visit Diagnoses Not on filedocumented in this encounter Additional Health Concerns Assessment Noted Time PHQ-9 Depression Total Score: 3 05/25/2020 7:02 AM CARE MGR documented as of this encounter Care Teams Automation Consultant Relationship Specialty Start Date End Date Alfred Rios, PCP - General Family Practice 04/18/15 Anthony Ballesteros, Assigned Heart and 05/03/20 09/24/20 Vascular Provider [address] [place] [address] Alfred Rios, Assigned PCP 09/01/20 [address] [place] [address] documented as of this encounter
--- OUTSIDE RECORDS SUMMARY | 2022-04-28 22:53 | XMS_ITS | Encounter Summary ---
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
--- OUTSIDE RECORDS SUMMARY | 2022-04-28 22:53 | XMS_ITS | Encounter Summary ---
:1950 Author Organization [place] Address [address] [facility] [place] [address] Care Team Providers Name Role Phone Alfred Rios MD Primary Care Provider [phone] Alfred Rios MD Unavailable Murali Cadet MD Unavailable Reason for Referral Diagnostic Imaging Ultrasound (Routine) - Closed Specialty Diagnoses / Procedures Referred By Contact Refer red To Contact Diagnoses Stenosis of right carotid artery Murali Cadet MD Procedures US Carotid Bilateral [address] [place] [address] Referral ID Status Reason Start Date Expiration Date Visits Requ ested Visits Authorized [id number] Closed 09/27/2020 09/27/2021 1 1 Encounter Details Date Type Department Care Team Description 09/27/2020 Orders Only [facility] Murali Cadet Stenosis of right Vascular Clinic Jeremi Bernal MD carotid artery [address] (Deepa marc Dx) [address] [place] [id number] [place] [id number] Social History Tobacco Use Types Packs/Day Years [...] with No / Unsure 09/18/2020 2:14 PM PROCUREMENT ACCOUNTANT someone who was confirmed or suspected to have Coronavirus / COVID-19? documented as of this encounter Plan of Treatment Scheduled Orders Name Type Priority Associated Diagnoses Order S chedule US Carotid Bilateral Imaging Routine Stenosis of right ca rotid Expected: 09/09/2022 artery (Approximate), Expires: 2023 documented as of this encounter Visit Diagnoses Diagnosis Stenosis of right carotid artery - Prima ry Occlusion and stenosis of carotid artery without mention of cerebral infarction documented in this encounter Additional Health Concerns Assessment Noted Time PHQ-9 Depression Total Score: 3 05/25/2020 7:02 AM PROCUREMENT ACCOUNTANT documented as of this encounter Care Teams Bulk Pigment Reducer Relationship Specialty Start Date End Date Alfred Rios, PCP - General Family Practice 04/18/15 Alfred Rios, Assigned PCP 09/01/20 [address] [place] [address] Murali Cadet MD Assigned Heart and 09/25/20 12/21/20 [address] [place] [address] [place] [id number] documented as of this encounter
--- OUTSIDE RECORDS SUMMARY | 2022-04-28 22:53 | XMS_ITS | Encounter Summary ---
:1950 Author Organization [place] Address [facility] [place] [address] Care Team Providers Name Role Phone Alfred Rios MD Primary Care Provider [phone] Anthony Ballesteros MD Unavailable Alfred Rios MD Unavailable Reason for Visit DEBBI Physical Therapy (Routine) - Closed Specialty Diagnoses / Procedures Referred By Contact Refer red To Contact Diagnoses B[place] [address] [address] [place] [address] Referral ID Status Reason Start Date Expiration Date Visits Requ ested Visits Authorized [id number] Closed 08/29/2020 07/11/2021 40 40 Encounter Details Date Type Department Care Team Description 09/04/2020 Therapy Visit [facility] [place] [address] [place] [address] Bilateral hip pain; Rehabilitation Services Dorian Pride, PT [facility] [address] [place] [address] Bilateral low back pain without sciatica [place] [id number] [place] [address] [phone] Social History Tobacco Use Types Packs/Day Years [...] with No / Unsure 09/04/2020 2:04 PM CERTIFIED TOWER CLIMBER someone who was confirmed or suspected to have Coronavirus / COVID-19? documented as of this encounter Progress Notes Dorian Pride, PT - 09/04/2020 2:20 PM CST [facility] Initial Evaluation Subjective: Pt describes intermittent LBP with pain into both of his hips. He also describes stiffness of his back and difficulty straightening up after sitting for too long. He has also experienced a few episodesof n/t into his feet and legs when walking. He states that his sxs started about 6 months ago for unknown reasons and have gotten worse. His pain is worse with standing > 15 minutes, when standing up from sitting. Better with activity and movement and Aleve. Referred to PT on 09/04/20. The history is provided by the patient. Patient Health History Anthony Crouch Lay being seen for Lower back, leg issues. Problem began: 07/12/2019. Problem occurred: Over many years of sitting at a desk Pain is reported as 5/10 on pain scale. General health as reported by patient is good. Pertinent medical history includes: asthma, chest pain, depression, heart problems, numbness/tingling and smoking. Medical allergies: none. Surgeries include: Orthopedic surgery and heart surgery. Current medications: Cardiac medication and pain medication. 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 Primary job tasks include: Computer work and prolonged sitting. Therapist Generated HPI Evaluation Type of problem: Lumbar. This is a new condition. Condition occurred with: Insidious onset. Where condition occurred: for unknown reasons. Patient reports pain: Lower lumbar spine. Pain is described as aching and stabbing and is intermittent. Radiates to: lat hips bilaterally. Pain is the same all the time. Since onset symptoms are gradually worsening. Associated symptoms: Loss of motion/stiffness, numbness and tingling. Symptoms are exacerbated by sitting and standing and relieved by activity/movement and NSAID's. Restrictions due to condition include: Working in normal job without restrictions. Barriers include: None as reported by patient. Objective: Standing Alignment: Lumbar: Lordosis decr Flexibility/Screens: Lower Extremity: Decreased left lower extremity flexibility:Hip IR's; Hip ER's; Hip Flexors; Quadriceps and Hamstrings Decreased right lower extremity flexibility: Hip IR's; Hip ER's; Hip Flexors; Quadriceps and Hamstrings Lumbar/SI Evaluation ROM: AROM Lumbar: Flexion: Full. RFIL and RFIS have no effect. Ext: Moderate loss. MASON and REIL produce LBP Side Bend: Left: Mild loss. Right: Mild loss. Rotation: Left: Right: Side Cummings: Left: Right: Neural Tension/Mobility: Lumbar: Normal Lumbar Palpation: Palpation (lumbar): Tender to pressure throughout the lumbar spine with hypomobility. General ROS Assessment/Plan: Patient is a 70 year old male with lumbar complaints. Patient has the following significant findings with corresponding treatment plan. Diagnosis 1: LBP with lumbar DDD Pain - hot/cold therapy, manual therapy, self management, educationand home program Decreased ROM/flexibility - manual therapy, therapeutic exercise and home program Decreased joint mobility - manual therapy, therapeutic exercise and home program Therapy Evaluation Codes: 1) History comprised of: Personal factors that impact the plan of care: None. Comorbidity factors that impact the plan of care are: None. Medications impacting care: None. 2) Examination of Body Systems comprised of: Body structures and functions that impact the plan of care: Lumbar spine. Activity limitations that impact the plan of care are: Lifting, Sitting and Standing. 3) Clinical presentation characteristics are: Stable/Uncomplicated. 4) Decision-Making Low complexity using standardized patient assessment instrument and/or measureable assessment of functional outcome. Cumulative Therapy Evaluation is: Low complexity. Previous and current functional limitations: (See Goal Flow Sheet for this information) Short term and roasterman goals: (See Goal Flow Sheet for this information) Communication ability: Patient appears to be able to clearly communicate and understand verbal and written communication and follow directions correctly. Treatment Explanation - The following has been discussed with the patient: RX ordered/plan of care Anticipated outcomes Possible risks and side effects This patient would benefit from PT intervention to resume normal activities. Rehab potential is good. Frequency: 1 X week, once daily Duration: for 4 weeks Discharge Plan: Achieve all LTG. Independent in home treatment program. Reach maximal therapeutic benefit. Please refer to the daily flowsheet for treatment today, total treatment time and time spent performing 1:1 timed codes. IFIED TOWER CLIMBER documented in this encounter Plan of Treatment Not on filedocumented as of this encounter Procedures Procedure Name Priority Date/Time Associated Diagnosis Comme nts SD THERAPEUTIC Routine 09/04/2020 4:29 PM Bilateral hip pain EXERCISES. EA 15 MIN CERTIFIED TOWER CLIMBER Bilateral low back pain without sciatica documented in this encounter Visit Diagnoses Diagnosis Bilateral hip pain Pain in joint, pelvic region and thigh Bilateral low back pain without sciatica documented in this encounter Additional Health Concerns Assessment Noted Time PHQ-9 Depression Total Score: 3 05/25/2020 7:02 AM CERTIFIED TOWER CLIMBER documented as of this encounter Care Teams Sail Finisher Hand Relationship Specialty Start Date End Date Alfred Rios, PCP - General Family Practice 04/18/15 Anthony Ballesteros, Assigned Heart and 05/03/20 09/24/20 Vascular Provider [address] [place] [id number] Alfred Rios, Assigned PCP 09/01/20 [address] [address] [address] documented as of this encounter
--- OUTSIDE RECORDS SUMMARY | 2022-04-28 22:53 | XMS_ITS | Encounter Summary ---
:1950 Author Organization [place] Address [address] [facility] [place] [address] Care Team Providers Name Role Phone Alfred Rios MD Primary Care Provider [phone] Alfred Rios MD Unavailable Reason for Visit Diagnostic Imaging NM (Routine) - Closed Specialty Diagnoses / Procedures Referred By Contact Refer red To Contact Radiology. Diagnoses Coronary artery disease involving [place] coronary artery of [place] heart without angina pectoris Anthony Ballesteros MD Rh Nuclear Medicine Procedures NM Exercise stress test (nuc card) [address] [place] [address] [place] [address] Phone: Fax: Referral ID Status Reason Start Date Expiration Date Visits Requ ested Visits Authorized [id number] Closed 09/06/2019 09/05/2020 1 1 Encounter Details Date Type Department Care Team Description 09/11/2019 Hospital Encounter [facility] [place] Anthony Ballesteros MD [address] [place], [place] [address] [place] [address] [phone] (Wo rk) Social History Tobacco Use Types [...] bypass May repeat every 5 graft of [place] heart minutes for a without angina pectoris maximum of 3 doses in 15 minutes documented as of this encounter Plan of Treatment Not on filedocumented as of this encounter Procedures Procedure Name Priority Date/Time Associated Diagnosis Comme nts NM MPI TREADMILL Routine 09/11/2019 11:18 AM Coronary artery R esults for this CHIMNEY SWEEPER disease involving procedure are in [place] coronary the results artery of [place] section. heart without angina pectoris documented in this encounter Visit Diagnoses Not on filedocumented in this encounter Administered Medications Inactive Administered Medications - up to 3 most recent administrations Medication Order MAR Action Action Date Dose Rate Site technetium Tc 99m tetrofosmin 2UD Given 09/11/2019 10:25 AM CHIMNEY SWEEPER 33 mCi study (MYOVIEW) radioisotope injection 3-42 mCi 3-42 mCi, Intravenous, EVERY 2 HOURS, First dose on Wed09/11/19 at 0845, For 2 doses, Radioisotope, supplied by and administered by Nuclear Medicine. *HW* Given 09/11/2019 8:45 AM CHIMNEY SWEEPER 10.5 mCi documented in this encounter Additional Health Concerns Assessment Noted Time PHQ-9 Depression Total Score: 5 04/15/2019 7:03 AM CDT documented as of this encounter Care Teams Backup Administrative Coordinator Relationship Specialty Start Date End Date Alfred Rios MD PCP - General Family Practice 04/18/15 Alfred Rios MD Assigned PCP 03/22/15 06/01/20 [id number] [address] [id number] documented as of this encounter
--- OUTSIDE RECORDS SUMMARY | 2022-04-28 22:53 | XMS_ITS | Encounter Summary ---
:1950 Author Organization [place] Address [facility] [place] [address] Care Team Providers Name Role Phone Alfred Rios MD Primary Care Provider [phone] Alfred Rios MD Unavailable Encounter Details Date Type Department Care Team Description 09/13/2019 Telephone [facility] Tiny Patterson RN Heart Care[facility] [address] [facility] [address] [place] [address] Social History Tobacco Use Types Packs/Day Years Used Date Smoking Tobacco: Former Cigarettes 1 35 Quit : 10/22/1999 Smokeless Tobacco: Never Alcohol Use Standard Drinks/Week Comments Yes 0 (1 standard drink = 0.6 oz pure alcoho l) 1-2 beers daily Sex Assigned at Date Recorded Male 12/31/2020 1:31 PM CDT documented as of this encounter Miscellaneous Notes Telephone Encounter - Tiny Patterson RN - 09/13/2019 12:37 PM CST Called pt. Reviewed results and recommendations. Pt understands to let us know if sxs progress/worsen. Pt agrees w/ plan. No further questions. ----- Message from Anthony Ballesteros MD sent at 09/11/2019 1:22 PM ADDING MACHINE SERVICER ----- Lev Franks The nuclear stress test looks very good! Judging by how he did after his last nuclear stress test 2016, it appears he should do well on medical therapy alone without intervention. If the symptoms become disabling, we can always discuss proceeding with coronary and graft angiography, but based on the stress test results, I would favor avoiding invasive testing at this time.. We have a visit scheduled in one year, but if symptoms worsen before then, we can see earlier. I will CC as well. NG MACHINE SERVICER documented in this encounter Plan of Treatment Not on filedocumented as of this encounter Visit Diagnoses Not on filedocumented in this encounter Additional Health Concerns Assessment Noted Time PHQ-9 Depression Total Score: 5 04/15/2019 7:03 AM CDT documented as of this encounter Care Teams Huc Ob Relationship Specialty Start Date End Date Alfred Rios MD PCP - General Family Practice 04/18/15 Alfred Rios MD Assigned PCP 03/22/15 06/01/20 [address] [facility] [place] [address] documented as of this encounter
--- OUTSIDE RECORDS SUMMARY | 2022-04-28 22:53 | XMS_ITS | Encounter Summary ---
:1950 Author Organization [place] Address [facility]0 [facility] [place] [address] Care Team Providers Name Role Phone Alfred Rios MD Primary Care Provider [phone] Alfred Rios MD Unavailable Anthony Ballesteros MD Unavailable Alfred Rios MD Unavailable Alfred Rios MD Unavailable Murali Cadet MD Unavailable Anthony Ballesteros MD Unavailable Reason for Visit Reason Onset Date Comments Refill Request 05/05/2020 Encounter Details Date Type Department Care Team Description 05/05/2020 MyC Refill [facility] Alfred Rios, Refill Request Yvonne CARBERA [address] [facility], [address] [place] [address] [place] [address] [place] [address] [phone] Social History Tobacco Use Types Packs/Day Years [...] Telephone Encounter - Brionna Yates RN - 05/07/2020 11:17 AM CDT Routing refill request to provider for review/approval because: A break in medication-last filled September 2018 Has apt next week See Mychart request Next 5 appointments (look out 90 days) May 24, 2020 10:00 AM (Arrive by 9:35 AM) Adult Preventative Visit with Alfred Rios MD [facility] [address] [place] [address] [phone] Brionna Yates RN, BSN Message handled by CLINIC NURSE. documented in this encounter Plan of Treatment Not on filedocumented as of this encounter Visit Diagnoses Diagnosis Mild intermittent asthma without complic ation Unspecified asthma documented in this encounter Additional Health Concerns Assessment Noted Time PHQ-9 Depression Total Score: 5 04/15/2019 7:03 AM CDT documented as of this encounter Care Teams Md Psychiatry Relationship Specialty Start Date End Date Alfred Rios, PCP - General Family Practice 04/18/15 Alfred Rios, Assigned PCP 03/22/1506/01 [address] [address] [id number] Anthony Ballesteros, Assigned Heart and 05/03/20 09/24/20 Vascular Provider [address] [place] [address] Alfred Rios, Assigned PCP 09/01/20 [address] [address] Alfred Rios, Assigned PCP 06/02/20 [address] [address] [id number] Murali Cadet MD Assigned Heart and 09/25/20 12/21/20 [address] Vascular Provider [place] [id number] Anthony Ballesteros, Assigned Heart and 12/22/20 Vascular Provider [address] [place] [id number] documented as of this encounter
--- OUTSIDE RECORDS SUMMARY | 2022-04-28 22:53 | XMS_ITS | Encounter Summary ---
:1950 Author Organization [place] Address [address] [place] [address] Care Team Providers Name Role Phone Alfred Rios MD Primary Care Provider [phone] Alfred Rios MD Unavailable Encounter Details Date Type Department Care Team Description 04/22/2020 Travel Social History Tobacco Use Types Packs/Day [...] documented as of this encounter Care Teams Matrix Worker Relationship Specialty Start Date End Date Alfred Rios MD PCP - General Family Practice 04/18/15 Alfred Rios MD Assigned PCP 03/22/15 06/01/20 [address] [address] [address] documented as of this encounter
--- OUTSIDE RECORDS SUMMARY | 2022-04-28 22:53 | XMS_ITS | Encounter Summary ---
:1950 Author Organization [place] Address [address] [facility] [place] [address] Care Team Providers Name Role Phone Alfred Rios MD Primary Care Provider [phone] Anthony Ballesteros MD Unavailable Alfred Rios MD Unavailable Reason for Referral Diagnostic Imaging Ultrasound (Routine) - Closed Specialty Diagnoses / Procedures Referred By Contact Refer red To Contact Radiology. Diagnoses Stenosis of right carotid artery Murali Cadet MD Ultrasound [facility] Procedures US Carotid Right [address] [address] [place] [address] [place] [address] Phone: Fax: Referral ID Status Reason Start Date Expiration Date Visits Requ ested Visits Authorized [id number] Closed 08/16/2019 09/11/2020 1 1 AT SYSTEMS ENGINEER Reason for Visit Diagnostic Imaging Ultrasound (Routine) - Closed Specialty Diagnoses / Procedures Referred By Contact Refer red To Contact Radiology. Diagnoses Stenosis of right carotid artery Murali Cadet MD Ultrasound [facility] Procedures US Carotid Right [address] [address] [place] [address] [place] [address] Phone: Fax: Referral ID Status Reason Start Date Expiration Date Visits Requ ested Visits Authorized [id number] Closed 08/16/2019 09/11/2020 1 1 Encounter Details Date Type Department Care Team Description 09/11/[address] [facility] Helio Murali [facility] [place] [facility] MD Gabe carotid [facility] [address] [place] [address] [place] [address] [place], [place] [phone] [address] (Work) [phone] Social History Tobacco Use Types Packs/Day Years [...] with No / Unsure 09/11/2020 3:04 PM COMBAT SYSTEMS ENGINEER someone who was confirmed or suspected to have Coronavirus / COVID-19? documented as of this encounter Medications at [...] (PROAIR Inhale 2 puffs 1 Inhaler 1 05/07/2020 HFA/PROVENTIL HFA/VENTOLIN into the lungs HFA) 108 (90 Base) MCG/ACT every 6 hours inhalerIndications: Mild intermittent asthma without complication atorvastatin (LIPITOR) 40 Take 1 tablet (40 90 tablet 3 07/03/2021 MG tabletIndications: mg) by mouth daily Hyperlipidemia with target LDL less than 100 metoprolol tartrate TAKE 1 TABLET BY 180 tablet 0 05/24/2020 11/05/2020 (LOPRESSOR) 25 MG MOUTH TWICE A DAY tabletIndications: Essential hypertension, benign naproxen (NAPROSYN) 500 MG Take 1 tablet (500 60 tablet 1 0 08/29/2020 01/07/2021 tabletIndications: mg) by mouth 2 Bilateral hip pain times daily (with meals) nitroGLYcerin (NITROSTAT) ONE TABLET UNDER 25 tablet 0 09/1010/11/2020 0.4 MG sublingual THE TONGUE EVERY 5 tabletIndications: MINUTES IF NEEDED Coronary artery disease FOR CHEST PAIN. involving coronary bypass MAY REPEAT EVERY 5 graft of creek heart MINUTES FOR A without angina pectoris MAXIMUM OF 3 DOSES IN 15 MINUTES documented as of this encounter Plan of Treatment Not on filedocumented as of this encounter Procedures Procedure Name Priority Date/Time Associated Diagnosis Comme nts US CAROTID RIGHT Routine 09/11/2020 2:36 PM Stenosis of right Results for this COMBAT SYSTEMS ENGINEER carotid artery procedure are in the results section. documented in this encounter Results US Carotid Right (09/11/2020 2:36 PM COMBAT SYSTEMS ENGINEER) Anatomical Region Laterality Modality Vascular, Head Ultrasound Specimen (Source) Anatomical Location Collection Method / Collectio n Time Received Time / Laterality Volume Impressions 09/11/2020 2:54 PM COMBAT SYSTEMS ENGINEER IMPRESSION: ?? 50-69% diameter stenosis of the right ICA relative to the distal ICA diameter, unchanged. YVONNE SEXTON DO Narrative 09/11/2020 2:54 PM COMBAT SYSTEMS ENGINEER RIGHT CAROTID ULTRASOUND ?? 09/11/2020 2:36 PM HISTORY: ??History of right carotid tigre ry stenosis. Stenosis of right carotid artery. COMPARISON: 06/01/2017 RIGHT CAROTID FINDINGS: ??Plaque at the carotid bulb and internal carotid artery. Right ICA PSV: ??210 ??cm/sec. Right ICA EDV: ??60 cm/sec. Right ICA/CCA PSV Ratio: ??1.74 ?? These indicate ??50 - 69% ??diameter garth nosis of the right ICA. ?? Right Vertebral: Antegrade flow. Right ECA: Antegrade flow. Causes of Decreased Accuracy: ?? None. Procedure Note Yvonne Sexton DO - 2020 RIGHT CAROTID ULTRASOUND 09/11/2020 2:36 P M HISTORY: History of right carotid artery stenosis. Stenosis of right carotid artery. COMPARISON: 06/01/2017 RIGHT CAROTID FINDINGS: Plaque at the ca rotid bulb and internal carotid artery. Right ICA PSV: 210 cm/sec. Right ICA EDV: 60 cm/sec. Right ICA/CCA PSV Ratio: 1.74 These indicate 50 - 69% diameter stenosi s of the right ICA. Right Vertebral: Antegrade flow. Right ECA: Antegrade flow. Causes of Decreased Accuracy: None. IMPRESSION: 50-69% diameter stenosis of the right ICA relative to the distal ICA diameter, unchanged. YVONNE SEXTON, Murali Cadet MD IMG US ORDERABLES documented in this encounter Visit Diagnoses Diagnosis Stenosis of right carotid artery Occlusion and stenosis of carotid artery without mention of cerebral infarction documented in this encounter Additional Health Concerns Assessment Noted Time PHQ-9 Depression Total Score: 3 05/25/2020 7:02 AM COMBAT SYSTEMS ENGINEER documented as of this encounter Care Teams Forder Operator Relationship Specialty Start Date End Date Alfred Rios, PCP - General Family Practice 04/18/15 Anthony Ballesteros, Assigned Heart and 05/03/20 09/24/20 Vascular Provider [address] [place] [address] Alfred Rios, Assigned PCP 09/01/20 [address] [address] [address] documented as of this encounter
--- OUTSIDE RECORDS SUMMARY | 2022-04-28 22:53 | XMS_ITS | Encounter Summary ---
:1950 Author Organization [place] Address [address] [facility] [place] [address] Care Team Providers Name Role Phone Alfred Rios MD Primary Care Provider [phone] Alfred Rios MD Unavailable Reason for Visit Reason Onset Date Comments Appointment 04/16/2020 Encounter Details Date Type Department Care Team Description 04/16/2020 Telephone [facility] Murali Cadet MD Appointment Clinic [place] [address] [facility] [address] [place] [address] [place] [address] [phone] Social History Tobacco Use Types Packs/Day Years Used Date Smoking Tobacco: Former Cigarettes 1 35 Quit : 10/22/1999 Smokeless Tobacco: Never Alcohol Use Standard Drinks/Week Comments Yes 0 (1 standard drink = 0.6 oz pure alcoho l) 1-2 beers daily Sex Assigned at Date Recorded Male 12/31/2020 1:31 PM CDT documented as of this encounter Miscellaneous Notes Telephone Encounter - Nicole Martinez - 04/16/2020 11:04 AM CDT 2 attempts have been made to schedule [address] follow up with Dr. Cadet. No further attempts will be made. Attempts: 1st LS 08/25/2019 2nd LS 09/21/2019 Nicole Turpin documented in this encounter Plan of Treatment Not on filedocumented as of this encounter Visit Diagnoses Not on filedocumented in this encounter Additional Health Concerns Assessment Noted Time PHQ-9 Depression Total Score: 5 04/15/2019 7:03 AM CDT documented as of this encounter Care Teams Hair Spring Cutter Relationship Specialty Start Date End Date Alfred Rios MD PCP - General Family Practice 04/18/15 Alfred Rios MD Assigned PCP 03/22/15 06/01/20 [address] [address] [address] documented as of this encounter
--- OUTSIDE RECORDS SUMMARY | 2022-04-28 22:53 | XMS_ITS | Encounter Summary ---
:1950 Author Organization [place] Address [address] [facility] [place] [address] Care Team Providers Name Role Phone Alfred Rios MD Primary Care Provider [phone] Alfred Rios MD Unavailable Murali Cadet MD Unavailable Reason for Visit DE[facility]BI Physical Therapy (Routine) - Closed Specialty Diagnoses / Procedures Referred By Contact Refer red To Contact Diagnoses B[place] [address] [place] [address] Referral ID Status Reason Start Date Expiration Date Visits Requ ested Visits Authorized [id number] Closed 08/29/2020 07/11/2021 40 40 Encounter Details Date Type Department Care Team Description 10/02/2020 Therapy Visit [facility] Dorian Pride Bilat eral low back Rehabilitation Services PT pain without [facility] sciatica [address] [facility] [place] [address] [facility] [address] [place], [place] [phone] [address] Social History Tobacco Use Types Packs/Day [...] encounter Progress Notes Dorian Pride, PT - 10/02/2020 1:00 PM CDT Subjective: HPI Physical Exam Objective: System Physical Exam General ROS Assessment/Plan: DISCHARGE REPORT Progress reporting period is from 09/04/20 to 10/02/20 (3 visits). SUBJECTIVE Subjective changes noted by patient: Pt reports that he is doing much better. He has been able to walk for 20-30 minutes and stand for 30 minutes without back or hip pain. He has experienced only one brief episode of n/t in the right foot in the past 2 weeks.. Current pain level is 0/10 . Previous pain level was 10/10 . Changes in function: Yes (See Goal flowsheet attached for changes in current functional level) Adverse reaction to treatment or activity: None OBJECTIVE Changes noted in objective findings: No pain with trunk movements exam today. Extension remains moderately limited. Hip mobility has also improved. ASSESSMENT/PLAN Updated problem list and treatment plan: Diagnosis 1: LBP STG/LTGs have been met or progress has been made towards goals: Yes (See Goal flow sheet completed today.) Assessment of Progress: The patient's condition is improving. Self Management Plans: Patient has been instructed in a home treatment program. Anthony continues to require the following intervention to meet STG and LTG's: PT intervention is nolonger required to meet STG/LTG. Recommendations: This patient is ready to be discharged from therapy and continue their home treatment program. Please refer to the daily flowsheet for treatment today, total treatment time and time spent performing 1:1 timed codes. documented in this encounter Plan of Treatment Not on filedocumented as of this encounter Procedures Procedure Name Priority Date/Time Associated Diagnosis Comme nts ND THERAPEUTIC Routine 10/02/2020 1:35 PM Bilateral low back EXERCISES. EA 15 MIN CDT pain without sciatic a documented in this encounter Visit Diagnoses Diagnosis Bilateral low back pain without sciatica documented in this encounter Additional Health Concerns Assessment Noted Time PHQ-9 Depression Total Score: 3 05/25/2020 7:02 AM INSURANCE HEALTHCARE REPRESENTATIVE documented as of this encounter Care Teams Cargo Services Coordinator Relationship Specialty Start Date End Date Alfred Rios, PCP - General Family Practice 04/18/15 Alfred Rios, Assigned PCP 09/01/20 [id number] [address] [address] Murali Cadet MD Assigned Heart and 09/25/20 12/21/20 [address] [place] [address] [place] [id number] documented as of this encounter
--- OUTSIDE RECORDS SUMMARY | 2022-04-28 22:53 | XMS_ITS | Encounter Summary ---
:1950 Author Organization [place] Address [address] [place] [address] Care Team Providers Name Role Phone Alfred Rios MD Primary Care Provider [phone] Anthony Ballesteros MD Unavailable Alfred Rios MD Unavailable Encounter Details Date Type Department Care Team Description 08/29/2020 Travel Social History Tobacco Use Types Packs/Day [...] with No / Unsure 08/29/2020 4:12 PM SUPERINTENDENT BUILDING someone who was confirmed or suspected to have Coronavirus / COVID-19? documented as of this encounter Plan of Treatment Not on filedocumented as of this encounter Visit Diagnoses Not on filedocumented in this encounter Additional Health Concerns Assessment Noted Time PHQ-9 Depression Total Score: 3 05/25/2020 7:02 AM SUPERINTENDENT BUILDING documented as of this encounter Care Teams Cotton Agent Relationship Specialty Start Date End Date Alfred Rios, PCP - General Family Practice 04/18/15 Anthony Ballesteros, Assigned Heart and 05/03/20 09/24/20 Vascular Provider [address] [place] [id number] Alfred Rios, Assigned PCP 06/02/20 [address] [address] [id number] documented as of this encounter
--- OUTSIDE RECORDS SUMMARY | 2022-04-28 22:54 | XMS_ITS | Encounter Summary ---
:1950 Author Organization [place] Address [address] [place] [address] Care Team Providers Name Role Phone Alfred Rios MD Primary Care Provider [phone] Alfred Rios MD Unavailable Reason for Referral (Routine) - Closed Specialty Diagnoses / Procedures Referred By Contact Refer red To Contact Diagnoses Coronary artery disease involving [place] coronary artery of [place] heart without angina pectoris Giovanny Salazar MD [address] [place] [address] Referral ID Status Reason Start Date Expiration Date Visits Requ ested Visits Authorized [id number] Closed 09/06/2019 09/05/2020 1 1 K AND WATCH HANDS DIPPER Diagnostic Imaging NM (Routine) - Closed Specialty Diagnoses / Procedures Referred By Contact Refer red To Contact Radiology. Diagnoses Coronary artery disease involving green[place] coronary artery of [place] heart without angina pectoris Giovanny Salazar MD Rh Nuclear Medicine Procedures NM Exercise stress test (nuc card) [address] [place] [address] [place] [address] Phone: Fax: Referral ID Status Reason Start Date Expiration Date Visits Requ ested Visits Authorized [id number] Closed 09/06/2019 09/05/2020 1 1 K AND WATCH HANDS DIPPER Reason for Visit Reason Comments Consult c/o exertional chest pain/pr essure and tightness w/ exertion - Closed Specialty Diagnoses / Procedures Referred By Contact Refer red To Contact Diagnoses Coronary artery disease involving [place] coronary artery of [place] heart without angina pectoris Alton Flowers MD [facility] [address] [place] [address] Referral ID Status Reason Start Date Expiration Date Visits Requ ested Visits Authorized [id number] Closed 09/13/2018 09/13/2019 1 1 Encounter Details Date Type Department Care Team Description 09/06/2019 Office Visit Giovanny Shrestha Coronary a rtery [facility] MD Gabe disease involving [facility] [address] [place] coronary artery [address] of [place] heart [address] [place] [address] without angina [place], [place] [phone] pectoris [address] (Work) [phone] Social History Tobacco Use Types Packs/Day Years Used Date Smoking Tobacco: Former Cigarettes 1 35 Quit : 10/22/1999 Smokeless Tobacco: Never Alcohol Use Standard Drinks/Week Comments Yes 0 (1 standard drink = 0.6 oz pure alcoho l) 1-2 beers daily Sex Assigned at Date Recorded Male 12/31/2020 1:31 PM CDT documented as of this encounter Last Filed Vital Signs Vital Sign Reading Time Taken Comments Blood Pressure 127/74 09/06/2019 9:06 AM CLOCK AND WATCH HANDS DIPPER Pulse 60 09/06/2019 9:06 AM CLOCK AND WATCH HANDS DIPPER Temperature - - Respiratory Rate - - Oxygen Saturation - - Inhaled Oxygen Concentration - - Weight 74.4 kg (164 lb) 09/06/2019 9:06 AM CLOCK AND WATCH HANDS DIPPER Height 167.6 cm (5' 6) 09/06/2019 9:06 AM CLOCK AND WATCH HANDS DIPPER Body Mass Index 26.47 09/06/2019 9:06 AM CLOCK AND WATCH HANDS DIPPER documented in this encounter Progress Notes Giovanny Salazar MD - 09/06/2019 9:53 AM CST Service Date: 09/06/2019 HISTORY OF PRESENT ILLNESS: Anthony Billingsley, a 69-year-old man with coronary artery disease, atherosclerotic peripheral vascular disease, anddyslipidemia was seen today at your request for followup. The patient was initially seen by my colleague, Dr. Flowers, in 2014 after Mr. Billingsley presented with exertional chest discomfort and an abnormal stress test. Diagnostic coronary angiography demonstrated no significant narrowing in left main or circumflex, but there was an ostial narrowing at the origin of the LAD and moderate narrowing in the mid right coronary. The patient underwent CAB at which time a left internal mammary graft was placed to the LAD. The patient continued to be troubled by episodes of chest discomfort postoperatively and underwent a nuclear stress test on 08/14/2016 where he had a normal ejection fraction with no evidence of ischemia. Mr. Billingsley has been maintained on medical therapy since then. He last saw Dr. Flowers in 09/2018, but at that time still reported episodes of chest heaviness primarily occurring with activity during coldweather. Recently, the patient was out walking his dog in some cold weather, and experienced chest discomfort after coming back inside. He took a nitro which seemed to improve his symptoms. He was very alarmedand requested cardiology followup. There have been no symptoms since the last episode. The patient never gets episodes of chest discomfort at rest, waking from sleep or during anxiety. All episodes have occurred during activity and theydo not always occur when he walks. PAST MEDICAL HISTORY: 1. Moderate narrowing in right internal carotid artery, has been followed by Dr. Cadet. 2. Coronary artery disease. a. Presentation with chest pain and abnormal stress test. b. Status post bypass surgery with RIVAS graft to the LAD. No significant narrowing noted in left main, circumflex. Moderate narrowing in right coronary. c. Negative nuclear stress test 2016. 3. Dyslipidemia. PHYSICAL EXAMINATION: GENERAL: Exam today demonstrates a very pleasant, cooperative 69-year-old man. VITAL SIGNS: His blood pressure is 127/74, heart rate 60. His height is 1.67 meters, his weight 74 kg. BMI is 26.5. LUNGS: Clear to percussion and auscultation. CARDIOVASCULAR: Shows a normal S1 with a normal S2. There is no S3. There is no murmur, rub or click. EXTREMITIES: Pulses are full and symmetrical. LABORATORY STUDIES: His ECG today shows a sinus rhythm. There are Q-waves present in II, III, aVF which are old and not new findings. ASSESSMENT: This 69-year-old man with a known history of coronary disease, status post bypass surgery describes episodes of exertion associated related chest discomfort. The symptoms have a stable pattern. I explained to the patient that our options are 1) continued observation, reserving stress testing for a definite worsening in symptoms , 2) noninvasive testing reserving invasive evaluation for a failed stress test or 3) diagnostic coronary /graft angiography as an initial step. I feel any of these options would be reasonable. After discussion of these 3 options, the patient requested a nuclear stress test as a first step.. RECOMMENDATIONS: 1. Exercise nuclear stress test. 2. Followup visit with me in about 1 year. We will follow up earlier if objective signs of significant ischemia are seen on nuclear stress test and/or the symptoms progress with no other explanation. 3. Continue present medical therapy. We appreciate the opportunity to see your patient, Mr. Anthony Billingsley. cc: Alfred Rios MD [facility] [address] [place] [address] GIOVANNY SALAZAR MD [place]: Name: ANTHONY BILLINGSLEY Account: [id number] : 1950 Service Date: 09/06/2019 Document: [id number] K AND WATCH HANDS DIPPER Giovanny Salazar MD - 09/06/2019 9:00 AM CST HISTORY OF PRESENT ILLNESS: At weight lifting competition, took dog out for walk, returned and noted chest discomfort took NTG which helped. Walks daily discomfort only occurs with activity. Never during stress never awakens fromsleep. Orders this Visit: Orders Placed This Encounter Procedures ??? EKG 12-lead complete w/read - Clinics (performed today) No orders of the defined types were placed in this encounter. There are no discontinued medications. Encounter Diagnosis Name Primary? Coronary artery disease involving green[place] coronary artery of [place] heart without angina pectoris CURRENT MEDICATIONS: Current Outpatient Medications Medication Sig Dispense Refill ??? aspirin 81 MG chewable tablet Take 1 tablet (81 mg) by mouth daily 30 tablet 12 ??? atorvastatin 40 MG PO tablet Take 1 tablet (40 mg) by mouth daily 90 tablet 0 ??? metoprolol tartrate 25 MG PO tablet Take 1 tablet (25 mg) by mouth 2 times daily 180 tablet 0 ??? nitroGLYcerin 0.4 MG SL sublingual tablet One tablet under the tongue every 5 minutes if needed for chest pain. May repeat every 5 minutes for a maximum of 3 doses in 15 minutes 25 tablet 0 ??? acetaminophen 650 MG TABS Take 650 mg by mouth every 6 hours as needed for mild pain or fever (Patient not taking: Reported on 09/14/2018) 100 tablet ??? albuterol (PROAIR HFA/PROVENTIL HFA/VENTOLIN HFA) 108 (90 Base) MCG/ACT inhaler Inhale 2 puffs into the lungs every 6 hours (Patient not taking: Reported on 09/06/2019) 1 Inhaler 1 ??? diazepam (VALIUM) 5 MG tablet Take 1 tablet (5 mg) by mouth every 6 hours as needed for anxiety (Patient not taking: Reported on 04/14/2019) 10 tablet 0 ??? hydrOXYzine (ATARAX) 25 MG tablet Take 1-2 tablets (25-50 mg) by mouth 3 times daily as needed for anxiety (Patient not taking: Reported on 09/06/2019) 30 tablet 0 ALLERGIES Allergies Allergen Reactions ??? Nickel Rash PAST MEDICAL, SURGICAL, FAMILY, SOCIAL HISTORY: History was reviewed and updated as needed, see medical record. Review of Systems: A 12-point review of systems was completed, see medical record for detailed review of systems information. Physical Exam: Vitals: BP 127/74 Pulse 60 Ht 1.676 m (5' 6) Wt 74.4 kg (164 lb) BMI 26.47 kg/m?? Constitutional: Skin: Head: Eyes: ENT: Neck: Chest: Cardiac: Abdomen: Vascular: Extremities and Back: Neurological: ASSESSMENT: Given recurrent nature of symptoms, he would like formal assessment ? RECOMMENDATIONS: 1) nuclear stress 2) follow-up in one year Recent Lab Results: LIPID RESULTS: Lab Results Component Value Date CHOL 135 09/12/2018 HDL 56 09/12/2018 LDL 68 09/12/2018 TRIG 53 09/12/2018 CHOLHDLRATIO 3.3 04/16/2015 LIVER ENZYME RESULTS: Lab Results Component Value Date AST 22 04/16/2015 ALT 31 04/16/2015 CBC RESULTS: Lab Results Component Value Date WBC 9.0 05/25/2015 RBC 4.05 (L) 05/25/2015 HGB 13.0 (L) 05/25/2015 HCT 36.5 (L) 05/25/2015 MCV 90 05/25/2015 MCH 32.1 05/25/2015 MCHC 35.6 05/25/2015 RDW 12.8 05/25/2015 PLT 175 05/25/2015 BMP RESULTS: Lab Results Component Value Date NA 141 09/12/2018 POTASSIUM 4.7 09/12/2018 CHLORIDE 108 09/12/2018 CO2 24 09/12/2018 ANIONGAP 9 09/12/2018 GLC 105 (H) 09/12/2018 BUN 21 09/12/2018 CR 1.03 09/12/2018 GFRESTIMATED 74 09/12/2018 GFRESTBLACK 86 09/12/2018 DAJA 8.8 09/12/2018 A1C RESULTS: Lab Results Component Value Date A1C 6.0 05/23/2015 INR RESULTS: Lab Results Component Value Date INR 1.15 (H) 05/22/2015 INR 1.23 (H) 05/22/2015 We greatly appreciate the opportunity to be involved in the care of your patient, Anthony Billingsley. Sincerely, Giovanny Salazar MD? [place] [address] [place] [address] ? K AND WATCH HANDS DIPPER documented in this encounter Miscellaneous Notes Addendum Note - Giovanny Salazar MD - 09/06/2019 9:00 AM CLOCK AND WATCH HANDS DIPPER Addended by: GIOVANNY SALAZAR on: 09/06/2019 09:43 AM Modules accepted: Orders, SmartSet K AND WATCH HANDS DIPPER documented in this encounter Plan of Treatment Scheduled Referrals Name Type Priority Associated Diagnoses Order S chedule Follow-Up with Referral Routine Coronary artery Expected: 09/06/2020 Casing Runner disease involving (Approxima te), [place] coronary artery Expir es: 09/06/2020 of [place] heart without angina pectoris documented as of this encounter Procedures Procedure Name Priority Date/Time Associated Diagnosis Comme nts EKG 12-LEAD Routine 09/06/2019 11:23 AM Coronary artery Resul ts for this COMPLETE W/READ - CLOCK AND WATCH HANDS DIPPER disease involving flavio sharma are in CLINICS [place] coronary the results artery of [place] section. heart without angina pectoris documented in this encounter Results NM Exercise stress test (nuc card) (09/11/2019 11:18 AM CLOCK AND WATCH HANDS DIPPER) [facility] gist Method Time Signature Target HR 151 [...] / Laterality Volume Narrative 09/11/2019 1:08 PM CLOCK AND WATCH HANDS DIPPER ?The nuclear stress test is negative for inducible myocardial ischemia or infarction. ?Left ventricular function is normal. ?The left ventricular ejection fraction at stress is 67%. ?The patient's exercise capacity is above average. ?A prior study was conducted on 08/14/2016. ??This study has no change when compared with the prior study. Stress Findings An exercise stress test was performed fo jesseniag a Rafael protocol with the patient exercising [...] left ventricular wall motion is norm al. Giovanny Salazar MD IMG NM ORDERABLES EKG 12-lead complete w/read - Clinics (performed today) (09/06/2019 11:23 AM CLOCK AND WATCH HANDS DIPPER) Narrative This result has an attachment that is no t available. Giovanny Salazar MD ECG ORDERABLES documented in this encounter Visit Diagnoses Diagnosis Coronary artery disease involving [place] coronary artery of [place] heart without angina pectoris Coronary artery disease involving [place] coronary artery of [place] heart without angina pectoris documented in this encounter Additional Health Concerns Assessment Noted Time PHQ-9 Depression Total Score: 5 04/15/2019 7:03 AM CDT documented as of this encounter Care Teams Plastic Extruding Machine Operator Relationship Specialty Start Date End Date Alfred Rios MD PCP - General Family Practice 04/18/15 Alfred Rios MD Assigned PCP 03/22/15 06/01/20 [address] [place] [address] documented as of this encounter
--- OUTSIDE RECORDS SUMMARY | 2022-04-28 22:54 | XMS_ITS | Encounter Summary ---
:1950 Author Organization [place] Address [facility] [place] [address] Care Team Providers Name Role Phone Alfred Rios MD Primary Care Provider [phone] Alfred Rios MD Unavailable Alfred Rios MD Unavailable Encounter Details Date Type Department Care Team Description 09/13/2018 Travel Social History Tobacco Use Types Packs/Day [...] Diagnoses Not on filedocumented in this encounter Care Teams Gis Web Developer Relationship Specialty Start Date End Date Alfred Rios MD PCP - General Family Practice 04/18/15 Alfred Rios MD PCP - Assigned PCP 03/22/15 09/13/18 [id number] [address] [id number] Alfred Rios MD Assigned PCP 03/22/15 06/01/20 [address] [address] [address] [address] documented as of this encounter
--- OUTSIDE RECORDS SUMMARY | 2022-04-28 22:54 | XMS_ITS | Encounter Summary ---
:1950 Author Organization [place] Address [facility] [place] [address] Care Team Providers Name Role Phone Alfred Rios MD Primary Care Provider [phone] Alfred Rios MD Unavailable Encounter Details Date Type Department Care Team Description 09/14/2018 Travel Social History Tobacco Use Types Packs/Day [...] on filedocumented in this encounter Care Teams Night Assistant Relationship Specialty Start Date End Date Alfred Rios MD PCP - General Family Practice 04/18/15 Alfred Rios MD Assigned PCP 03/22/15 06/01/20 [address] [place] [address] documented as of this encounter
--- OUTSIDE RECORDS SUMMARY | 2022-04-28 22:54 | XMS_ITS | Encounter Summary ---
:1950 Author Organization [place] Address [facility] [place] [address] Care Team Providers Name Role Phone Alfred Rios MD Primary Care Provider [phone] Alfred Rios MD Unavailable Reason for Visit Reason Onset Date Comments MOOD CHANGES Panic attack Erroneous encounter-disregard 04/12/2019 Encounter Details Date Type Department Care Team Description 04/11/2019 Office Visit [facility] Alfred Rios ERRONEOUS Clinic Yvonne Peterson MD ENCOUNTER--DISREGARD [place] [address] [facility] (Primary ) [facility], [address] [place] [address] [place], [place] [phone] (Wo rk) [address] [phone] Social History Tobacco Use Types Packs/Day Years Used Date Smoking Tobacco: Former Cigarettes 1 35 Quit : 10/22/1999 Smokeless Tobacco: Never Alcohol Use Standard Drinks/Week Comments Yes 0 (1 standard drink = 0.6 oz pure alcoho l) 1-2 beers daily Sex Assigned at Date Recorded Male 12/31/2020 1:31 PM CDT documented as of this encounter Progress Notes Alfred Rios MD - 04/11/2019 1:00 PM CDT This encounter was opened in error. Please disregard. documented in this encounter Plan of Treatment Not on filedocumented as of this encounter Visit Diagnoses Diagnosis ERRONEOUS ENCOUNTER--DISREGARD - Primary documented in this encounter Additional Health Concerns Assessment Noted Time PHQ-9 Depression Total Score: 7 04/11/2019 12:44 PM CD T documented as of this encounter Care Teams Manager Of Corporate Relationship Specialty Start Date End Date Alfred Rios MD PCP - General Family Practice 04/18/15 Alfred Rios MD Assigned PCP 03/22/15 06/01/20 [address] [place] [address] documented as of this encounter
--- OUTSIDE RECORDS SUMMARY | 2022-04-28 22:54 | XMS_ITS | Encounter Summary ---
:1950 Author Organization [place] Address [address] [place] [address] Care Team Providers Name Role Phone Alfred Rios MD Primary Care Provider [phone] Alfred Rios MD Unavailable Encounter Details Date Type Department Care Team Description 11/08/2018 Therapy Visit [facility] Edith Soto, Left knee pain; Rehabilitation Services PT Hip pain, left [place] [address] [place] [address] [place], [place] [phone] Social History Tobacco Use Types Packs/Day Years Used Date Smoking Tobacco: Former Cigarettes 1 35 Quit : 10/22/1999 Smokeless Tobacco: Never Alcohol Use Standard Drinks/Week Comments Yes 0 (1 standard drink = 0.6 oz pure alcoho l) 1-2 beers daily Sex Assigned at Date Recorded Male 12/31/2020 1:31 PM CDT documented as of this encounter Progress Notes Edith Soto, PT - 11/08/2018 5:00 PM CDT Subjective: HPI Objective: System Physical Exam General ROS Assessment/Plan: DISCHARGE REPORT Progress reporting period is from 09/20/2018 to 11/08/2018. SUBJECTIVE Subjective: Patient reports minimal improvement in knee pain and will be going to see an ortho MD for consult. Pain is most painful with going down steps Current Pain level: 5/10 Initial Pain level: 6/10 Changes in function: Yes, see goal flow sheet for change in function Adverse reactions: None; , Patient has failed to return to therapy so current objective findings are unknown. OBJECTIVE Objective: ROM left knee: 1-130 (significantly improved) Added knee bends and lateral step downs with 4 inch step ASSESSMENT/PLAN STG/LTGs have been met or progress has been made towards goals: Yes, ROM but not pain level Assessment of Progress: The patient's condition has potential to improve. Self Management Plans: Patient is independent in a home treatment program. Patient is independent in self management of symptoms. Anthony continues to require the following intervention to meet STG and LTG's: PT intervention is nolonger required to meet STG/LTG. Recommendations: This patient will be discharged from therapy and continue their home treatment program. Please refer to the daily flowsheet for treatment today, total treatment time and time spent performing 1:1 timed codes. documented in this encounter Miscellaneous Notes Addendum Note - Edith Soto PT - 11/08/2018 5:00 PM CDT Addended by: EDITH SOTO on: 01/25/2019 01:18 PM Modules accepted: Orders documented in this encounter Plan of Treatment Not on filedocumented as of this encounter Procedures Procedure Name Priority Date/Time Associated Diagnosis Comme [facility] THERAPEUTIC Routine 11/08/2018 5:38 PM Left knee neftaly n EXERCISES CDT Hip pain, left documented in this encounter Visit Diagnoses Diagnosis Left knee pain Pain in joint, lower leg Hip pain, left Pain in joint, pelvic region and thigh documented in this encounter Care Teams Brass Molder Relationship Specialty Start Date End Date Alfred Rios MD PCP - General Family Practice 04/18/15 Alfred Rios MD Assigned PCP 03/22/15 06/01/20 [id number] [place] [address] documented as of this encounter
--- OUTSIDE RECORDS SUMMARY | 2022-04-28 22:54 | XMS_ITS | Encounter Summary ---
:1950 Author Organization [place] Address [address] [place] [address]. [place] [address] Care Team Providers Name Role Phone Alfred Rios MD Primary Care Provider [phone] Alfred Rios MD Unavailable Reason for Visit Reason Onset Date Comments Refill Request 08/25/2019 Encounter Details Date Type Department Care Team Description 08/25/2019 MyC Refill [facility] Alfred Riosk, Refill Request Yvonne CABRERA [address] [place] [address] [place] [address] [place] [address] [phone] Social History Tobacco Use Types Packs/Day Years Used Date Smoking Tobacco: Former Cigarettes 1 35 Quit : 10/22/1999 Smokeless Tobacco: Never Alcohol Use Standard Drinks/Week Comments Yes 0 (1 standard drink = 0.6 oz pure alcoho l) 1-2 beers daily Sex Assigned at Date Recorded Male 12/31/2020 1:31 PM CDT documented as of this encounter Miscellaneous Notes Telephone Encounter - Soco Enciso RN - 08/29/2019 5:31 PM CST Prescription approved per [facility] Refill Protocol Soco Enciso RN BS RY FINISHER documented in this encounter Plan of Treatment Not on filedocumented as of this encounter Visit Diagnoses Diagnosis Hyperlipidemia with target LDL less than 100 Other and unspecified hyperlipidemia Coronary artery disease involving josue ry bypass graft of [place] heart without angina pectoris Essential hypertension, benign documented in this encounter Additional Health Concerns Assessment Noted Time PHQ-9 Depression Total Score: 5 04/15/2019 7:03 AM CDT documented as of this encounter Care Teams Farm Truck Driver Relationship Specialty Start Date End Date Alfred Rios MD PCP - General Family Practice 04/18/15 Alfred Rios MD Assigned PCP 03/22/15 06/01/20 [id number] [place] [address] documented as of this encounter
--- OUTSIDE RECORDS SUMMARY | 2022-04-28 22:54 | XMS_ITS | Encounter Summary ---
:1950 Author Organization [place] Address [address] [place] [address]. [place] [address] Care Team Providers Name Role Phone Alfred Rios MD Primary Care Provider [phone] Alfred Rios MD Unavailable Reason for Visit Reason Comments Anxiety happened wednesday Encounter Details Date Type Department Care Team Description 04/14/2019 Office Visit [facility] Alfred Rios Acute adj ustment disorder (Primary Dx); Clinic Yvonne Peterson MD Peripheral vascular disease (H) [place] [address] [facility], [address] [place] [address] [place], [place] [phone] (Wo rk) [address] [phone] Social History Tobacco Use Types Packs/Day Years [...] Sign Reading Time Taken Comments Blood Pressure 106/54 04/14/2019 2:44 PM CDT Pulse 79 04/14/2019 2:44 PM CDT Temperature 36.6 ??C (97.8 ??F) 04/14/2019 2:44 PM CDT Respiratory Rate 16 04/14/2019 2:44 PM CDT Oxygen Saturation 97% 04/14/2019 2:44 PM CDT Inhaled Oxygen Concentration - - Weight 75.8 kg (167 lb) 04/14/2019 2:44 PM CDT Height 167.6 cm (5' 6) 04/14/2019 2:44 PM CDT Body Mass Index 26.95 04/14/2019 2:44 PM CDT documented in this encounter Progress Notes Alfred Rios MD - 04/14/2019 2:20 PM CDT Subjective Anthony Chun is a 69 year old male who presents to clinic today for the following health issues: Anxiety History of Present Illness Mental Health Follow-up: Patient presents to follow-up on Anxiety. Patient's anxiety since last visit has been: Better The patient is not having other symptoms associated with anxiety. Any significant life events: relationship concerns Patient is feeling anxious or having panic attacks. Patient has no concerns about alcohol or drug use. Social History Tobacco Use Smoking status: Former Smoker Packs/day: 1.00 Years: 35.00 Pack years: 35Types: Cigarettes Quit date: 10/22/1999 Years since quittin.4 Smokeless tobacco: Never Used Alcohol use: Yes Alcohol/week: 0.0 standard drinks Comment: 1-2 beers daily Drug use: No Today's PHQ-9 PHQ-9 Total Score: (P) 5 PHQ-9 Q9 Thoughts of better off /self-harm past 2 weeks : (P) Not at all Thoughts of suicide or self harm: Self-harm Plan: Self-harm Action: Safety concerns for self or others: having health concerns. [id number] parents are their landlords, but some family drama haslead them to force Pip[employer] and to accept housemates. Mom is also having health issues, they are house shopping. Had several days of intense anxiety and panic attacks, walked in to clinic several days ago. Has been using some diazepam and hydroxyzine and finding both helpful. Notes that in used medication for mood, but really hasn't since. See's cardiology/vascular once a year, due next in July Review of Systems Constitutional: Negative. Respiratory: Negative. Cardiovascular: Positive for palpitations. Neurological: Negative. Psychiatric/Behavioral: The patient is nervous/anxious. Objective BP 106/54 (BP Location: Right arm, Patient Position: Sitting, Cuff Size: Adult Large) Pulse 79 Temp 97.8 ??F (36.6 ??C) (Oral) Resp 16 Ht 1.676 m (5' 6) Wt 75.8 kg (167 lb) SpO2 97% BMI 26.95 kg/m?? Body mass index is 26.95 kg/m??. Physical Exam Vitals signs and nursing note reviewed. Pulmonary: Effort: Pulmonary effort is normal. Skin: General: Skin is warm and dry. Neurological: Mental Status: He is alert. Psychiatric: Mood and Affect: Mood normal. Thought Content: Thought content normal. Answers for HPI/ROS submitted by the patient on 04/14/2019 Chronic problems general questions HPI Form If you checked off any problems, how difficult have these problems made it for you to do your work, take care of things at home, or get along with other people?: Somewhat difficult PHQ9 TOTAL SCORE: 5 MINDA 7 TOTAL SCORE: 5 Assessment and Plan (F43.20) Acute adjustment disorder (primary encounter diagnosis) Comment: will continue with PRNs for the time being, advised to look into counselig, particualrly CBT Plan: RTC PRN (I73.9) Peripheral vascular disease (H) Comment: follow closley with cardiology Plan: RTC in Alfred Rios MD documented in this encounter Plan of Treatment Not on filedocumented as of this encounter Visit Diagnoses Diagnosis Acute adjustment disorder - Primary Peripheral vascular disease (H) Peripheral vascular disease, unspecified documented in this encounter Additional Health Concerns Assessment Noted Time PHQ-9 Depression Total Score: 5 04/15/2019 7:03 AM CDT documented as of this encounter Care Teams Entry Level Recruiter Relationship Specialty Start Date End Date Alfred Rios MD PCP - General Family Practice 04/18/15 Alfred Rios MD Assigned PCP 03/22/15 06/01/20 [id number] [address] [address] documented as of this encounter
--- OUTSIDE RECORDS SUMMARY | 2022-04-28 22:54 | XMS_ITS | Encounter Summary ---
:1950 Author Organization [place] Address [address] [facility] [place] [address] Care Team Providers Name Role Phone Alfred Rios MD Primary Care Provider [phone] Alfred Rios MD Unavailable Reason for Visit Reason Onset Date Comments Medication Request 04/14/2019 hydrOXYzine (VISTARI L) 25 MG capsule Encounter Details Date Type Department Care Team Description 04/14/2019 Telephone [facility] Alfred Rios Medicatio n Request Clinic Yvonne Peterson MD (hydrOXYzine [facility], [address] [place] [address] (VISTARIL) 25 MG [address] [place] [address] capsule) [place], [place] [phone] (Wo rk) [address] [phone] Social History Tobacco Use Types Packs/Day Years [...] Telephone Encounter - Regina Burrows RN - 04/14/2019 12:13 PM CDT New rx sent to pharmacy. Patient notified. Regina Markos, RN Telephone Encounter - Alfred Rios MD - 04/14/2019 11:13 AM CDT Substitution is OK. Alfred Rios MD Telephone Encounter - Nora Mcgill - 04/14/2019 10:[address] Rios can we switch? Nora Mcgill/TC Telephone Encounter - Ananda Smith - 04/14/2019 10:17 AM CDT Patient called stating pharmacy could not fill his hydrOXYzine (VISTARIL) 25 MG capsule. Patient stated medication is supposed to be a Tablet instead of capsule is what pharmacy told him. Patient stated he is very worried about this medication not being filled it's for his Anxiety. Patient is hoping to pick his medication up by today if possible. Patient would like to be contacted at ph:[phone] Ananda Smith -Patient Bike Shop Manager documented in this encounter Plan of Treatment Not on filedocumented as of this encounter Visit Diagnoses Diagnosis Adjustment disorder with anxious mood - Primary Adjustment disorder with anxiety documented in this encounter Additional Health Concerns Assessment Noted Time PHQ-9 Depression Total Score: 5 04/15/2019 7:03 AM CDT documented as of this encounter Care Teams Shipyard Laborer Relationship Specialty Start Date End Date Alfred Rios MD PCP - General Family Practice 04/18/15 Alfred Rios MD Assigned PCP 03/22/15 06/01/20 [id number] [address] [address] documented as of this encounter
--- OUTSIDE RECORDS SUMMARY | 2022-04-28 22:54 | XMS_ITS | Encounter Summary ---
:1950 Author Organization [place] Address [address] [place] [address] Care Team Providers Name Role Phone Alfred Rios MD Primary Care Provider [phone] Alfred Rios MD Unavailable Reason for Visit Reason Comments Walk In Clinic Encounter Details Date Type Department Care Team Description 04/11/[address] [facility] Adj ustment disorder with [place] anxious mood (Primary Dx) [address] [facility], [address] [place] [address] Social History Tobacco Use Types Packs/Day Years [...] Sign Reading Time Taken Comments Blood Pressure 148/80 04/11/2019 12:44 PM CDT Pulse - - Temperature - - Respiratory Rate - - Oxygen Saturation - - Inhaled Oxygen Concentration - - Weight - - Height - - Body Mass Index - - documented in this encounter Progress Notes Alfred Rios MD - 04/11/2019 1:00 PM CDT [place] base briefly with [place]. Made arrangements for him to see me in 3 days. Does appear to be having an acute panic attack. No recent history of panic attack. Of note, he did intially go to [facility] ER, but left to come here because it was busy. Will Rx hydroxyzine (preferred) and diazepam for sx control. Alfred Rios MD documented in this encounter Nursing Notes Soco Enciso RN - 04/11/2019 1:00 PM CDT Pt walked into clinic c/o panic, shaky, hyperventilating, face red, tearful Pt of Dr Rios C/o family and financial stress, reports not sleeping well, wakes to use toilet and then can not fall back to sleep Encouraged calm, deep breathing, Able to calm self with focused breathing Discussed with Dr Rios who will briefly assess pt PHQ 9 MINDA 7 done, not suicidal PHQ-9 SCORE 04/11/2019 PHQ-9 Total Score 7 MINDA-7 SCORE 04/11/2019 Total Score 4 Soco Enciso RN, BS Clinical Nurse Triage. documented in this encounter Plan of Treatment Not on filedocumented as of this encounter Visit Diagnoses Diagnosis Adjustment disorder with anxious mood - Primary Adjustment disorder with anxiety documented in this encounter Additional Health Concerns Assessment Noted Time PHQ-9 Depression Total Score: 7 04/11/2019 12:44 PM CD T documented as of this encounter Care Teams Chemical Pumper Relationship Specialty Start Date End Date Alfred Rios MD PCP - General Family Practice 04/18/15 Alfred Rios MD Assigned PCP 03/22/15 06/01/20 [id number] [address] [id number] documented as of this encounter
--- OUTSIDE RECORDS SUMMARY | 2022-04-28 22:54 | XMS_ITS | Encounter Summary ---
:1950 Author Organization [place] Address [facility] [place] [address] Care Team Providers Name Role Phone Alfred Rios MD Primary Care Provider [phone] Alfred Rios MD Unavailable Encounter Details Date Type Department Care Team Description 04/11/2019 Travel Social History Tobacco Use Types Packs/Day [...] of this encounter Care Teams Set Up Mechanic Stamping Machines Relationship Specialty Start Date End Date Alfred Rios MD PCP - General Family Practice 04/18/15 Alfred Rios MD Assigned PCP 03/22/15 06/01/20 [address] [place] [address] documented as of this encounter
--- OUTSIDE RECORDS SUMMARY | 2022-04-28 22:54 | XMS_ITS | Encounter Summary ---
:1950 Author Organization [place] Address [facility] [place] [address] Care Team Providers Name Role Phone Alfred Rios MD Primary Care Provider [phone] Alfred Rios MD Unavailable Alfred Rios MD Unavailable Reason for Referral - Closed Specialty Diagnoses / Procedures Referred By Contact Refer red To Contact Diagnoses Coronary artery disease involving naknek coronary artery of naknek heart without angina pectoris Alton Flowers MD [facility] [address] [place] [address] Referral ID Status Reason Start Date Expiration Date Visits Requ ested Visits Authorized [id number] Closed 09/13/2018 09/13/2019 1 1 DEMONSTRATOR Reason for Visit Reason Comments Follow Up annual Coronary Artery Disease Hypertension Hyperlipidemia Encounter Details Date Type Department Care Team Description 09/13/2018 Office Visit Alton Jarrell Coronary ar tery [facility] disease involving [facility] [facility] n[place] coronary artery [address] [facility] of naknek heart [address] without angina [place], [place] RD pectoris (Primary Dx) [address] [place], [place] [phone] Social History Tobacco Use Types Packs/Day Years [...] Sign Reading Time Taken Comments Blood Pressure 122/66 09/13/2018 3:21 PM HOME DEMONSTRATOR Pulse 72 09/13/2018 3:21 PM HOME DEMONSTRATOR Temperature - - Respiratory Rate - - Oxygen Saturation 98% 09/13/2018 3:21 PM HOME DEMONSTRATOR Inhaled Oxygen Concentration - - Weight 77.1 kg (169 lb 14.4 oz) 09/13/2018 3:21 PM HOME DEMONSTRATOR Height 169.5 cm (5' 6.73) 09/13/2018 3:21 PM HOME DEMONSTRATOR Body Mass Index 26.82 09/13/2018 3:21 PM HOME DEMONSTRATOR documented in this encounter Progress Notes Alton Flowers MD - 09/13/2018 3:15 PM CST HPI and Plan: The patient is a pleasant 68-year-old gentleman with a history of coronary artery disease status robotic-assisted coronary artery bypass surgery with a RIVAS to the LAD for known left main and ostial LAD stenosis with Dr. Celis in 2012. He also has moderate right internal carotid artery stenosis for which he follows with Dr. Cadet. He returns in annual follow-up. For the last several years the patient has had chest heaviness and cold weather which his family physician believes is related to possible reactive airway disease. This is unchanged since I seen him last. He denies any other types of chest pain, chest pressure, shortness of breath, orthopnea, or paroxysmal nocturnal dyspnea. He uses a fit bit to track his steps and is getting approximately 15,000 steps per day without difficulty. I did review patient's lipids and BMP which were just performed yesterday. Orders Placed This Encounter Procedures ??? Follow-Up with Placement Coordinator No orders of the defined types were placed in this encounter. There are no discontinued medications. Encounter Diagnosis Name Primary? Coronary artery disease involving naknek coronary artery of naknek heart without angina pectorisYes CURRENT MEDICATIONS: Current Outpatient Medications Medication Sig [...] ??? metoprolol tartrate (LOPRESSOR) 25 MG tablet Take 1 tablet (25 mg) by mouth 2 times daily 180 tablet 1 ??? acetaminophen 650 MG TABS Take 650 mg by mouth every 6 hours as needed for mild pain or fever (Patient not taking: Reported on 09/12/2018) 100 tablet ??? nitroGLYcerin (NITROSTAT) 0.4 MG sublingual tablet One tablet under the tongue every 5 minutes if needed for chest pain. May repeat every 5 minutes for a maximum of 3 doses in 15 minutes (Patient not taking: Reported on 09/13/2018) 25 tablet 3 ALLERGIES Allergies Allergen Reactions ??? Nickel Rash PAST MEDICAL HISTORY: Past Medical History: Diagnosis Date ??? Cardiac ischemia 04/24/2015 Positive stress test 04/18/15 Alfred Rios MD ??? Carotid artery stenosis Right internal ??? Coronary artery disease ??? CRF (chronic renal failure), stage 2 (mild) 04/17/2015 ??? Family history of CT (myocardial infarction) 04/16/2015 ??? Hyperlipidemia ??? Hypertension ??? Other chronic pain lower back, rt butock, right leg 2/2 sciatica pain ??? S/P CABG (coronary artery bypass graft) 05/25/2015 PAST SURGICAL HISTORY: Past Surgical History: Procedure Laterality Date ??? achilles release Left 2009 ??? ARTHROSCOPY KNEE RT/LT Bilateral 1989 ??? COLONOSCOPY N/A 07/24/2016 Procedure: COLONOSCOPY; Surgeon: Joi Ludwig MD; Location: [facility] ??? CORONARY ANGIOGRAPHY ADULT ORDER 05/06/15 ??? CORONARY ARTERY BYPASS 05/22/2015 RIVAS to LAD ??? DAVINCI BYPASS ARTERY CORONARY N/A 05/22/2015 Procedure: DAVINCI BYPASS ARTERY CORONARY; Surgeon: Fede Celis MD; Location: OR ??? ROTATOR CUFF REPAIR RT/LT Right 2009 ??? SEPTOPLASTY 1977 ??? VASECTOMY 1979 FAMILY HISTORY: Family History Problem Relation Age of Onset ??? Hyperlipidemia Mother ??? Cerebrovascular Disease Mother ??? Cancer Father kidney ??? Coronary Artery Disease Father 40 ??? Hyperlipidemia Brother ??? Hyperlipidemia Sister SOCIAL HISTORY: Social History Socioeconomic History ??? Marital status: Spouse name: None ??? Number of children: None ??? Years of education: None ??? Highest education level: None Occupational History ??? None Social Needs ??? Financial resource strain: None ??? Food insecurity: Worry: None Inability: None ??? Transportation needs: Medical: None Non-medical: None Tobacco Use ??? Smoking status: Former Smoker Packs/day: 1.00 Years: 35.00 Pack years: 35.00 Types: Cigarettes Last attempt to quit: 10/22/1999 Years since quittin.9 ??? Smokeless tobacco: Never Used Substance and Sexual Activity ??? Alcohol use: Yes Alcohol/week: 0.0 oz Comment: 1-2 beers daily ??? Drug use: No ??? Sexual activity: No Lifestyle ??? Physical activity: Days per week: None Minutes per session: None ??? Stress: None Relationships ??? Social connections: Talks on phone: None Gets together: None Attends judaism service: None Active member of club or organization: None Attends meetings of clubs or organizations: None Relationship status: None ??? Intimate partner violence: Fear of current or ex partner: None Emotionally abused: None Physically abused: None Forced sexual activity: None Other Topics Concern ??? Parent/sibling w/ CABG, CT or angioplasty before 65F 55M? No ??? Service Not Asked ??? Blood Transfusions Not Asked ??? Caffeine Concern No ??? Occupational Exposure Not Asked ??? Hobby Hazards Not Asked ??? Sleep Concern Not Asked ??? Stress Concern Not Asked ??? Weight Concern Not Asked ??? Special Diet No ??? Back Care Not Asked ??? Exercise No Comment: Elliptycal , weights, cariac rehab ??? Bike Helmet Not Asked ??? Seat Belt Not Asked ??? Self-Exams Not Asked Social History Narrative ??? None Review of Systems: Skin: Negative Eyes: Positive for glasses ENT: Negative Respiratory: Negative Cardiovascular: palpitations;chest pain;Negative for;edema;lightheadedness;dizziness fatigue;Positive for Gastroenterology: Negative Genitourinary: Negative Musculoskeletal: Positive for joint pain left knee Neurologic: Positive for headaches rarely Psychiatric: Positive for excessive stress hip surgery Heme/Lymph/Imm: Positive for easy bruising Endocrine: Negative Physical Exam: Vitals: BP 122/66 (BP Location: Right arm, Patient Position: Sitting, Cuff Size: Adult Regular) Pulse 72 Ht 1.695 m (5' 6.73) Wt 77.1 kg (169 lb 14.4 oz) SpO2 98% BMI 26.82 kg/m?? Constitutional: well developed;well nourished Skin: warm and dry to the touch surgical scars well-healed Head: normocephalic Eyes: sclera white Lymph: ENT: no pallor or cyanosis;dentition good Neck: not assessed this visit Respiratory: clear to auscultation Cardiac: regular rhythm;normal S1 and S2 pulses full and equal GI: abdomen soft Extremities and Muscular Skeletal: no edema Neurological: no gross motor deficits;affect appropriate Psych: IMPRESSION AND PLAN: Mr. Chun is a pleasant 68-year-old gentleman with coronary artery disease as detailed above. I believe that his chest discomfort in cold air is likely related to the lung disease and not heart disease. He is otherwise quite active without chest pain and had a nuclear stress test 2 years ago that did not show evidence for myocardial ischemia. At this time, I would recommend continued medical management with an aspirin, atorvastatin and beta brisa unchanged. I have encouraged the patient to continue with healthy lifestyle and we will plan to see the patient back in routine clinical followup in 1 year. CC Alfred Rios MD [employer] [place] [place] [address] DEMONSTRATOR documented in this encounter Plan of Treatment Scheduled Referrals Name Type Priority Associated Diagnoses Order S chedule Follow-Up with Referral Routine Coronary artery Expected: 09/14/2019 Placement Coordinator disease involving (Approxima te), naknek coronary artery Expir es: 09/14/2019 of naknek heart without angina pectoris documented as of this encounter Visit Diagnoses Diagnosis Coronary artery disease involving naknek coronary artery of naknek heart without angina pectoris - Primary documented in this encounter Care Teams Dump Motorman Relationship Specialty Start Date End Date Alfred Rios MD PCP - General Family Practice 04/18/15 Alfred Rios MD PCP - Assigned PCP 03/22/15 09/13/18 [id number] CARL LAWLER [id number] Alfred Rios MD Assigned PCP 03/22/15 06/01/20 [id number] CARL LAWLER [id number] documented as of this encounter
--- OUTSIDE RECORDS SUMMARY | 2022-04-28 22:54 | XMS_ITS | Encounter Summary ---
:1950 Author Organization [place] Address [address] [facility] [place] [address] Care Team Providers Name Role Phone Alfred Rios MD Primary Care Provider [phone] Alfred Rios MD Unavailable Reason for Referral Diagnostic Imaging Ultrasound (Routine) - Closed Specialty Diagnoses / Procedures Referred By Contact Refer red To Contact Radiology. Diagnoses Stenosis of right carotid artery Murali Cadet MD Rh Ultrasound [facility] Procedures US Carotid Right [address] [address] [address] [facility] [place] [address] [address] [place] [address] Phone: Fax: Referral ID Status Reason Start Date Expiration Date Visits Requ ested Visits Authorized [id number] Closed 08/16/2019 09/11/2020 1 1 CINE MAN Encounter Details Date Type Department Care Team Description 08/16/2019 [facility] Murali Cadet Stenosis of right Vascular Clinic Jeremi Bernal MD carotid artery [address] ([facility] Dx) [address] [place] [address] [place] [id number] Social History Tobacco Use Types Packs/Day Years [...] Not on filedocumented as of this encounter Results US Carotid Right (09/11/2020 2:36 PM MEDICINE MAN) Anatomical Region Laterality Modality Vascular, Head Ultrasound Specimen (Source) Anatomical Location Collection Method / Collectio n Time Received Time / Laterality Volume Impressions 09/11/2020 2:54 PM MEDICINE MAN IMPRESSION: ?? 50-69% diameter stenosis of the right ICA relative to the distal ICA diameter, unchanged. YVONNE SEXTON DO Narrative 09/11/2020 2:54 PM MEDICINE MAN RIGHT CAROTID ULTRASOUND ?? 09/11/2020 2:36 PM [...] distal ICA diameter, unchanged. YVONNE SEXTON DO Murali Cadet MD IMG US ORDERABLES documented in this encounter Visit Diagnoses Diagnosis Stenosis of right carotid artery - Prima ry Occlusion and stenosis of carotid artery without mention of cerebral infarction Stenosis of right carotid artery Occlusion and stenosis of carotid artery without mention of cerebral infarction documented in this encounter Additional Health Concerns Assessment Noted Time PHQ-9 Depression Total Score: 5 04/15/2019 7:03 AM CDT documented as of this encounter Care Teams Die Cast Engineer Relationship Specialty Start Date End Date Alfred Riso MD PCP - General Family Practice 04/18/15 Alfred Rios MD Assigned PCP 03/22/15 06/01/20 [id number] [address] [facility] [place] [address] documented as of this encounter
--- OUTSIDE RECORDS SUMMARY | 2022-04-28 22:54 | XMS_ITS | Encounter Summary ---
:1950 Author Organization [place] Address [address] [facility] [address] Care Team Providers Name Role Phone Alfred Rios MD Primary Care Provider [phone] Alfred Rios MD Unavailable Reason for Referral Diagnostic Imaging Ultrasound - Closed Specialty Diagnoses / Procedures Referred By Contact Refer red To Contact Radiology. Diagnoses Carotid stenosis Murali Cadet MD [facility] Procedures US Carotid Bilateral [address] [address] [address] [place] [address] [place] [address] Phone: Fax: Referral ID Status Reason Start Date Expiration Date Visits Requ ested Visits Authorized [id number] Closed 05/12/2018 05/12/2019 1 1 RACT LEAD Reason for Visit Diagnostic Imaging Ultrasound - Closed Specialty Diagnoses / Procedures Referred By Contact Refer red To Contact Radiology. Diagnoses Carotid stenosis Murali Cadet MD [facility] Ul[facility] Procedures US Carotid Bilateral [address] [address] [place] [address] [address] [place] [address] Phone: Fax: Referral ID Status Reason Start Date Expiration Date Visits Requ ested Visits Authorized [id number] Closed 05/12/2018 05/12/2019 1 1 Encounter Details Date Type Department Care Team Description 09/14/2018 Hospital Encounter [facility] Murali Cadet Ca rotid stenosis [facility] [address] [address] [facility] [address] [place] [address] [place], [place] [phone] [address] (Work) [phone] Social History Tobacco Use Types Packs/Day Years [...] Take 1 tablet (40 90 tablet 3 10/201808/25/2019 MG tabletIndications: mg) by mouth daily Hyperlipidemia with target LDL less than 100 metoprolol tartrate Take 1 tablet (25 180 tablet 1 9 05/20/2019 (LOPRESSOR) 25 MG mg) by mouth 2 tabletIndications: times daily Essential hypertension, benign nitroGLYcerin (NITROSTAT) One tablet under 25 tablet 3 /10/201808/25/2019 0.4 MG sublingual the tongue every 5 tabletIndications: minutes if needed Coronary artery disease for chest pain. involving coronary bypass May repeat every 5 graft of sioux heart minutes for a without angina pectoris maximum of 3 doses in 15 minutes documented as of this encounter Plan of Treatment Not on filedocumented as of this encounter Procedures Procedure Name Priority Date/Time Associated Diagnosis Comme nts US CAROTID Routine 09/14/2018 3:11 PM Carotid stenosis Resul ts for this BILATERAL CONTRACT LEAD procedure are i n the results section. documented in this encounter Results US Carotid Bilateral (09/14/2018 3:11 PM CONTRACT LEAD) Anatomical Region Laterality Modality Vascular, Head Ultrasound Specimen (Source) Anatomical Location Collection Method / Collectio n Time Received Time / Laterality Volume Impressions 09/14/2018 3:21 PM CONTRACT LEAD IMPRESSION: Per sonographic criteria, there is a 50-69% stenosis in the right internal carotid artery and a less than 50% stenosis in the left internal carotid artery. Degree of stenosis on the right has increased when compared to the previous exam given a higher peak systolic velocity measured in the automotive internet sales manager al carotid artery on today's exam. Degree of stenosis measured relative to the diameter of the normal internal carotid artery per NASCET or NA SCET type criteria DONELL LISA MD Narrative 09/14/2018 3:21 PM CONTRACT LEAD US CAROTID BILATERAL 09/14/2018 3:11 PM HISTORY: Carotid stenosis, yearly follow -up. COMPARISON: 05/19/2016. FINDINGS: Right side: On the grayscale images, there is mixed plaque in the proximal internal carotid artery. Spectral waveform analysis was performed . Peak systolic and diastolic velocities in the right internal carotid artery are 209 and 65 cm/s versus 166 and 62 cm/s on the prior exam . Per sonographic criteria, degree of stenosis in the right internal carotid artery is 50-69%. Flow in the right vertebral artery is an tegrade. Left side: On the grayscale images, there is a mild amount of mixed plaque at the distal common carotid artery extending i nto the proximal internal carotid artery. Spectral waveform analysis was performed . Peak systolic and diastolic velocities in the left internal carotid artery are 94 and 21 cm/s versus 119 and 31 cm/s on the prior exam . Per sonographic criteria, degree of stenosis in the left internal carotid artery is less than 50%. Flow in the left vertebral artery is ant egrade. Procedure Note Donell Lisa MD - 09/14/2018F ormatting of this note might be different from the original. US CAROTID BILATERAL 09/14/2018 3:11 PM HISTORY: Carotid stenosis, yearly follow -up. COMPARISON: 05/19/2016. FINDINGS: Right side: On the grayscale images, there is mixed plaque in the proximal internal carotid artery. Spectral waveform analysis was performed . Peak systolic and diastolic velocities in the right internal carotid artery are 209 and 65 cm/s versus 166 and 62 cm/s on the prior exam . Per sonographic criteria, degree of stenosis in the right internal carotid artery is 50-69%. Flow in the right vertebral artery is an tegrade. Left side: On the grayscale images, there is a mild amount of mixed plaque at the distal common carotid artery extending i nto the proximal internal carotid artery. Spectral waveform analysis was performed . Peak systolic and diastolic velocities in the left internal carotid artery are 94 and 21 cm/s versus 119 and 31 cm/s on the prior exam . Per sonographic criteria, degree of stenosis in the left internal carotid artery is less than 50%. Flow in the left vertebral artery is ant egrade. IMPRESSION: Per sonographic criteria, th ere is a 50-69% stenosis in the right internal carotid artery and a less than 50% stenosis in the left internal carotid artery. Degree of stenosis on the right has increased when compared to the previous exam given a higher peak systolic velocity measured in the automotive internet sales manager al carotid artery on today's exam. Degree of stenosis measured relative to the diameter of the normal internal carotid artery per NASCET or NA SCET type criteria DONELL LISA MD Murali Cadet MD [facility] ORDERABLES documented in this encounter Visit Diagnoses Diagnosis Carotid stenosis Occlusion and stenosis of carotid artery without mention of cerebral infarction documented in this encounter Care Teams Vmware Consultant Relationship Specialty Start Date End Date Alfred Rios MD PCP - General Family Practice 04/18/15 Alfred Rios MD Assigned PCP 03/22/15 06/01/20 [id number] [place] [address] documented as of this encounter
--- OUTSIDE RECORDS SUMMARY | 2022-04-28 22:54 | XMS_ITS | Encounter Summary ---
:1950 Author Organization [place] Address [address] [place] [address] Care Team Providers Name Role Phone Alfred Rios MD Primary Care Provider [phone] Alfred Rios MD Unavailable Reason for Visit Reason Comments RECHECK Carotid US Encounter Details Date Type Department Care Team Description 09/14/2018 Office Visit [facility] Murali Cadet [facility] bilateral Surgery Clinic MD Gabe carotid artery [place] [address] stenosis (Primary Dx) [address] [place] [address] [place], [place] [phone] [address] (Work) [phone] Social History Tobacco Use Types Packs/Day Years Used Date Smoking Tobacco: Former Cigarettes 1 35 Quit : 10/22/1999 Smokeless Tobacco: Never Tobacco Cessation: Counseling Given: Yes Alcohol Use Standard Drinks/Week Comments Yes 0 (1 standard drink = 0.6 oz pure alcoho l) 1-2 beers daily Sex Assigned at Date Recorded Male 12/31/2020 1:31 PM CDT documented as of this encounter Last Filed Vital Signs Vital Sign Reading Time Taken Comments Blood Pressure 110/66 09/14/2018 3:27 PM PARAPROFESSIONAL AIDE Pulse 76 09/14/2018 3:27 PM PARAPROFESSIONAL AIDE Temperature - - Respiratory Rate 16 09/14/2018 3:27 PM PARAPROFESSIONAL AIDE Oxygen Saturation 96% 09/14/2018 3:27 PM PARAPROFESSIONAL AIDE Inhaled Oxygen Concentration - - Weight 76.7 kg (169 lb) 09/14/2018 3:27 PM PARAPROFESSIONAL AIDE Height 169.5 cm (5' 6.73) 09/14/2018 3:27 PM PARAPROFESSIONAL AIDE Body Mass Index 26.68 09/14/2018 3:27 PM PARAPROFESSIONAL AIDE documented in this encounter Progress Notes Murali Cadet MD - 09/14/2018 3:45 PM CST Anthony Chun is a 68-year-old gentleman with hypertension, hyperlipidemia, and prior tobacco abuse who presents today for follow-up of his moderate asymptomatic right carotid stenosis. He is status post CABG in 2014. At today's visit he is without complaints. Exam: Fit appearing male in no acute distress. Blood pressure 110/66 with a pulse of 76. Neurologic exam nonfocal. 2+ palpable radial pulses bilaterally. Imaging: US CAROTID BILATERAL 09/14/2018 3:11 PM ?? HISTORY: Carotid stenosis, yearly follow-up. ?? COMPARISON: 05/19/2016. ?? FINDINGS: ?? Right side: On the grayscale images, there is mixed plaque in the proximal internal carotid artery. Spectral waveform analysis was performed. Peak systolic and diastolic velocities in the right internal carotid artery are 209 and 65 cm/s versus 166 and 62 cm/s on the prior exam. Per sonographic criteria, degree of stenosis in the right internal carotid artery is 50-69%. Flow in the right vertebral artery is antegrade. ?? Left side: On the grayscale images, there is a mild amount of mixed plaque at the distal common carotid artery extending into the proximal internal carotid artery. Spectral waveform analysis was performed. Peak systolic and diastolic velocities in the left internal carotid artery are 94 and 21 cm/s versus 119 and 31 cm/s on the prior exam. Per sonographic criteria, degree of stenosis in the left internal carotid artery is less than 50%. Flow in the left vertebral artery is antegrade. ?? IMPRESSION: Per sonographic criteria, there is a 50-69% stenosis in the right internal carotid artery and a less than 50% stenosis in the left internal carotid artery. Degree of stenosis on the right has increased when compared to the previous exam given a higher peak systolic velocity measured in the internal carotid artery on today's exam. ?? Degree of stenosis measured relative to the diameter of the normal internal carotid artery per NASCET or NASCET type criteria ?? DONELL ACEVES MD ASSESSMENT: 1. Moderate 50-69% right ICA stenosis not yet in need of repair but with some progression of diseasecompared to 18 months ago. 2. Minimal left ICA stenosis. RECOMMENDATION: I reviewed all the above with Pipo. He will continue his medical regimen including daily aspirin. His blood pressure and lipids seem well controlled. He has been tobacco free since 1999. Vascular surgical follow-up will be with me in 1 year for a repeat right carotid ultrasound. Total [id number] time was 15 minutes, greater than 50% spent providing counseling and education. Rd Cadet MD PROFESSIONAL AIDE documented in this encounter Plan of Treatment Not on filedocumented as of this encounter Visit Diagnoses Diagnosis Asymptomatic bilateral carotid artery st enosis - Primary Occlusion and stenosis of multiple and b ilateral precerebral arteries without mention of cerebral infarction documented in this encounter Care Teams Facilities Maintenance Assistant Relationship Specialty Start Date End Date Alfred Rios MD PCP - General Family Practice 04/18/15 Alfred Rios MD Assigned PCP 03/22/15 06/01/20 [id number] [place]WL[place] [id number] documented as of this encounter
--- OUTSIDE RECORDS SUMMARY | 2022-04-28 22:54 | XMS_ITS | Encounter Summary ---
:1950 Author Organization [facility] Address Formerly [facility] [place] [address] Care Team Providers Name Role Phone Alfred Rios MD Primary Care Provider [phone] Alfred Rios MD Unavailable Encounter Details Date Type Department Care Team Description 09/04/2019 Telephone [facility] Gill Montero RN Heart Care-[facility] [address] [facility] [address] [place] [address] Social History Tobacco Use Types Packs/Day Years Used Date Smoking Tobacco: Former Cigarettes 1 35 Quit : 10/22/1999 Smokeless Tobacco: Never Alcohol Use Standard Drinks/Week Comments Yes 0 (1 standard drink = 0.6 oz pure alcoho l) 1-2 beers daily Sex Assigned at Date Recorded Male 12/31/2020 1:31 PM CDT documented as of this encounter Miscellaneous Notes Telephone Encounter - Gill Montero RN - 09/04/2019 4:09 PM CST Pt transferred from scheduling d/t c/o CP. Pt states for about 4 months has been having chest pain, pressure and tightness w/ exertion. Does not occur w/ rest. On several occasions he has vomitted as a result of the pain. Denies SOB or LH. Pt was walking his dog the other day, the dog pulled him a little too hard causing the pt to walk faster which triggered symptoms which resolved after taking one NTG. Feels like prior to his CABG in 2014. Pt is currently asymptomatic on the phone. Reviewed instructions on taking the NTG. Scheduled to seeDrCurt Ballesteros in 2 days on 09/06/19. Take it easy until then. However, if he develops CP that does not resolve w/ NTG as directed or has worsened symptoms should call 911. Pt understood. Joy GANNON, BSN 09/04/19 4:17 PM [employer]CHNICIAN documented in this encounter Plan of Treatment Not on filedocumented as of this encounter Visit Diagnoses Not on filedocumented in this encounter Additional Health Concerns Assessment Noted Time PHQ-9 Depression Total Score: 5 04/15/2019 7:03 AM CDT documented as of this encounter Care Teams Structural Analysis Engineer Relationship Specialty Start Date End Date Alfred Rios MD PCP - General Family Practice 04/18/15 Alfred Rios MD Assigned PCP 03/22/15 06/01/20 [id number] [place] [address] documented as of this encounter
--- OUTSIDE RECORDS SUMMARY | 2022-04-28 22:54 | XMS_ITS | Encounter Summary ---
:1950 Author Organization [place] Address [address] [facility] [place] [address] Care Team Providers Name Role Phone Alfred Rios MD Primary Care Provider [phone] Alfred Rios MD Unavailable Anthony Ballesteros MD Unavailable Alfred Rios MD Unavailable Alfred Rios MD Unavailable Murali Cadet MD Unavailable Anthony Ballesteros MD Unavailable Reason for Visit Reason Onset Date Comments Medication Refill 05/22/2019 metoprolol tartrate (LOPRESSOR) 25 MG tablet Encounter Details Date Type Department Care Team Description 05/20/2019 Refill [facility] Alfred Rioso n Refill Clinic Yvonne Peterson MD (metoprolol tartrate [facility], [address] [place] [address] [address] (LOPRESSOR) 25 MG [address] [place] [address] tablet) [place], [place] [phone] (Wo rk) [id number] [phone] Social History Tobacco Use Types Packs/Day Years [...] Telephone Encounter - Regina Burrows RN - 05/22/2019 3:58 PM CST Prescription approved per [facility] Refill Protocol. Regina Burrows RN [facility] Telephone Encounter - Romina Baltazar - 05/22/2019 8:31 AM CST Images from the original note were not included. Requested Prescriptions Pending Prescriptions Disp Refills ??? metoprolol tartrate (LOPRESSOR) 25 MG tablet [Pharmacy Med Name: METOPROLOL TARTRATE 25 MG TAB] 180 tablet 1 Sig: TAKE 1 TABLET (25 MG) BY MOUTH 2 TIMES DAILY Last Written Prescription Date: 09/12/18 Last Fill Quantity: 180, # refills: 1 Last Office Visit: 04/14/2019 Blanca Return in about 1 month (around 05/15/2019). Future Office Visit: Beta-Blockers Protocol Passed - 05/20/2019 9:06 AM Passed - Blood pressure under 140/90 in past 12 months BP Readings from Last 3 Encounters: 04/14/19 106/54 04/11/19 (!) 148/80 09/14/18 110/66 Passed - Patient is age 6 or older Passed - Recent (12 mo) or future (30 days) visit within the authorizing provider's specialty Patient has had an office visit with the authorizing provider or a provider within the authorizing providers department within the previous 12 mos or has a future within next 30 days. See Patient Info tab in inbasket, or Choose Columns in Meds & Orders section of the refill encounter. Passed - Medication is active on med list [facility] documented in this encounter Plan of Treatment Not on filedocumented as of this encounter Visit Diagnoses Diagnosis Essential hypertension, benign documented in this encounter Additional Health Concerns Assessment Noted Time PHQ-9 Depression Total Score: 5 04/15/2019 7:03 AM CDT documented as of this encounter Care Teams Director Digital Relationship Specialty Start Date End Date Alfred Rios, PCP - General Family Practice 04/18/15 Alfred Rios, Assigned PCP 03/22/1506/[address] [place], [place] [id number] Anthony Ballesteros, Assigned Heart and 05/03/20 09/24/20 Vascular Provider [address] [place] [id number] Alfred Rios, Assigned PCP 09/01/20 [address] [place], [place] [id number] Alfred Rios, Assigned PCP 06/02/[address] [place] [address] Murali Cadet MD Assigned Heart and 09/25/20 12/21/20 [address] [place] [id number] Anthony Ballesteros, Assigned Heart and 12/22/20 Vascular Provider [address] [place] [id number] documented as of this encounter
--- OUTSIDE RECORDS SUMMARY | 2022-04-28 22:54 | XMS_ITS | Encounter Summary ---
:1950 Author Organization [place] Address [address] [place] [address] Care Team Providers Name Role Phone Alfred Rios MD Primary Care Provider [phone] Alfred Rios MD Unavailable Reason for Visit [facility] Physical Therapy - Closed Specialty Diagnoses / Procedures Referred By Contact Refer red To Contact Diagnoses Post-traumatic [place] [address] [place] [address] Referral ID Status Reason Start Date Expiration Date Visits Requ ested Visits Authorized [id number] Closed 09/12/2018 09/12/2019 1 1 Encounter Details Date Type Department Care Team Description 09/20/2018 Therapy Visit [facility] [place] [address] [place] [address] Post-traumatic osteoarthritis of left kn ee; Rehabilitation Edith Soto, PT [address] [place] [address] Left knee pain; Services [place] Hip pain, left [address] [place] [address] Social History Tobacco Use Types Packs/Day Years Used Date Smoking Tobacco: Former Cigarettes 1 35 Quit : 10/22/1999 Smokeless Tobacco: Never Alcohol Use Standard Drinks/Week Comments Yes 0 (1 standard drink = 0.6 oz pure alcoho l) 1-2 beers daily Sex Assigned at Date Recorded Male 12/31/2020 1:31 PM CDT documented as of this encounter Progress Notes LuísfadyEdith colon, PT - 09/20/2018 3:00 PM CDT [facility] Initial Evaluation Subjective: Anthony Chun is a 68 year old male with a left knee (left knee and lateral hip pain) condition. This is a new condition Left knee pain started insidiously 3 months ago. History of meniscus surgeriesbilateral knees at age 50. Right sciatica 3 years ago, relieved with injection. History of cramping in hamstrings and gastrocs. Goals: gardening, golfing, bowling. Patient reports pain: In the joint and anterior. and is intermittent and reported as 6/10 (0/10 at rest). Associated symptoms: Loss of motion/stiffness and loss of strength. Pain is the same all the time. Symptoms are exacerbated by bending/squatting, walking, ascending stairs and descending stairs (sit to stand after prolonged sitting) and relieved by NSAID's (biofreeze). Since onset symptoms are unchanged. General health as reported by patient is good. Objective: Gait: Gait Type: Antalgic Assistive Devices: None Flexibility/Screens: Lower Extremity: Decreased left lower extremity flexibility:Piriformis; Hamstrings and Gastroc Decreased right lower extremity flexibility: Hamstrings and Gastroc Knee Evaluation: ROM: AROM Extension: Left: 4 Right: 0 Flexion: Left: 110 Right: 140 Strength: Extension: Left: 4+/5 Pain:+ Right: 5/5 Pain:- Flexion: Left: 5-/5 Pain:- Right: 5/5 Pain:- Quad Set Left: Good and delayed Pain: + Quad Set Right: Good Pain: - Ligament Testing: Varus 0: Left: Neg Varus 30: Left: Neg Valgus 0: Left: Neg Valgus 30: Left: Neg Anterior Drawer: Left: Neg Special Tests: Left knee positive for the following special tests: Meniscal Left knee negative for the following special tests: Patellar compression Palpation: Left knee tenderness present at: Medial Joint Line Edema: Normal General ROS Assessment/Plan: Patient is a 68 year old male with left side knee complaints. Patient has the following significant findings with corresponding treatment plan. Diagnosis 1: Left knee and hip pain Pain - hot/cold therapy, education and home program Decreased ROM/flexibility - manual therapy, therapeutic exercise and home program Decreased strength - therapeutic exercise, therapeutic activities and home program Therapy Evaluation Codes: 1) History comprised of: Personal factors that impact the plan of care: None. Comorbidity factors that impact the plan of care are: None. Medications impacting care: None. 2) Examination of Body Systems comprised of: Body structures and functions that impact the plan of care: Hip and Knee. Activity limitations that impact the plan of care are: Squatting/kneeling and Stairs. 3) Clinical presentation characteristics are: Stable/Uncomplicated. 4) Decision-Making Low complexity using standardized patient assessment instrument and/or measureable assessment of functional outcome. Cumulative Therapy Evaluation is: Low complexity. Previous and current functional limitations: (See Goal Flow Sheet for this information) Short term and FDC goals: (See Goal Flow Sheet for this [...] to resume normal activities. Rehab potential is excellent. Frequency: 1 X week, once daily Duration: for 6 weeks Discharge Plan: Achieve all LTG. Independent in home treatment program. Reach maximal therapeutic benefit. Please refer to the daily flowsheet for treatment today, total treatment time and time spent performing 1:1 timed codes. Edith Soto PT - 09/20/2018 3:00 PM CDT [facility] Initial Evaluation Subjective: Pertinent medical history includes: Heart problems. Other surgeries include: Orthopedic surgery andheart surgery (both knees, R shoulder, Single by-pass). Current medications: Cardiac medication. 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 Primary job tasks include: Prolonged sitting (computer work). Red flags: Pain at night/rest and chest pain. Objective: System Physical Exam General ROS Assessment/Plan: documented in this encounter Plan of Treatment Not on filedocumented as of this encounter Procedures Procedure Name Priority Date/Time Associated Diagnosis [facility] Z THERAPEUTIC Routine 09/21/2018 9:43 AM Post-traumatic EXERCISES CDT osteoarthritis of left knee Left knee pain Hip pain, left documented in this encounter Visit Diagnoses Diagnosis Post-traumatic osteoarthritis of left kn ee Secondary localized osteoarthrosis, lowe r leg Left knee pain Pain in joint, lower leg Hip pain, left Pain in joint, pelvic region and thigh documented in this encounter Care Teams Control Clerk Subassembly Relationship Specialty Start Date End Date Alfred Rios MD PCP - General Family Practice 04/18/15 Alfred Rios MD Assigned PCP 03/22/15 06/01/20 [address] [place] [address] documented as of this encounter
--- OUTSIDE RECORDS SUMMARY | 2022-04-28 22:54 | XMS_ITS | Encounter Summary ---
:1950 Author Organization [place] Address [facility] [place] [address] Care Team Providers Name Role Phone Alfred Rios MD Primary Care Provider [phone] Alfred Rios MD Unavailable Encounter Details Date Type Department Care Team Description 04/14/2019 Travel Social History Tobacco Use Types Packs/Day [...] documented as of this encounter Care Teams Artist Consultant Relationship Specialty Start Date End Date Alfred Rios MD PCP - General Family Practice 04/18/15 Alfred Rios MD Assigned PCP 03/22/15 06/01/20 [address] [place] [address] documented as of this encounter
--- OUTSIDE RECORDS SUMMARY | 2022-04-28 22:55 | XMS_ITS | Encounter Summary ---
:1950 Author Organization [place] Address [address] [place] [address] Care Team Providers Name Role Phone Alfred Rios MD Primary Care Provider [phone] Alfred Rios MD Unavailable Alfred Rios MD Unavailable Reason for Referral - Closed Specialty Diagnoses / Procedures Referred By Contact Refer red To Contact Diagnoses Chronic ischemic heart disease S/P CABG (coronary artery bypass graft) Chest pain, unspecified type Alton Rm MD [facility] [address] [place] [id number] Referral ID Status Reason Start Date Expiration Date Visits Requ ested Visits Authorized [id number] Closed 08/28/2016 08/28/[address] Reason for Visit Reason Comments Heart Problem CAD (s/p CABG 05/22/15 RIVAS to LAD), HTN, Hyperlipidemia, Cardiac Ischemia, CKD stage 2, Carot id Stenosis (right) - Closed Specialty Diagnoses / Procedures Referred By Contact Refer red To Contact Diagnoses Chronic ischemic heart disease S/P CABG (coronary artery bypass graft) Alton Rm MD [facility] [address] [place] [address] Referral ID Status Reason Start Date Expiration Date Visits Requ ested Visits Authorized [id number] Closed 07/30/2016 07/30/2017 1 1 Encounter Details Date Type Department Care Team Description 08/05/2016 Office Visit Alton Jarrell, Chest pain, unspecified type (Primary Dx); [facility] Chronic ischemic heart disease; [facility] AND S/P CABG (coronary artery by pass graft) [id number] [facility] VASCULAR [address] [facility] [address] [place], [place] [phone] [address] Social History Tobacco Use Types Packs/Day Years [...] Sign Reading Time Taken Comments Blood Pressure 118/78 08/05/2016 8:[address]IVER Pulse 63 08/05/2016 8:[address]IVER Temperature - - Respiratory Rate - - Oxygen Saturation 98% 08/05/2016 8:[address]IVER Inhaled Oxygen Concentration - - Weight 75.3 kg (166 lb) 08/05/2016 8:[address] TRUCK [address]IVER Height 167.6 cm (5' 6) 08/05/2016 8:[address]IVER Body Mass Index 26.79 08/05/2016 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 NM Exercise stress test (nuc card) ??? Follow-Up with Filter Operator No orders of the defined types were placed in this encounter. There are no discontinued medications. Encounter Diagnoses Name Primary? Chronic ischemic heart disease ??? S/P CABG (coronary artery bypass graft) ??? Chest pain, unspecified type Yes CURRENT MEDICATIONS: Current Outpatient Prescriptions Medication Sig Dispense Refill ??? metoprolol (LOPRESSOR) 25 MG tablet Take 1 tablet (25 mg) by mouth 2 times daily 180 tablet 3 ??? atorvastatin (LIPITOR) 40 MG tablet Take 1 tablet (40 mg) by mouth daily 90 tablet 3 ??? nitroglycerin (NITROSTAT) 0.4 MG SL tablet One tablet under the tongue every 5 minutes if neededfor chest pain. May repeat every 5 minutes for a maximum of 3 doses in 15 minutes 25 tablet 3 ??? aspirin 81 MG chewable tablet Take 1 tablet (81 mg) by mouth daily 30 tablet 12 ??? acetaminophen 650 MG TABS Take 650 mg by mouth every 6 hours as needed for mild pain or fever 100 tablet ALLERGIES Allergies Allergen Reactions ??? Nickel Rash PAST MEDICAL HISTORY: Past Medical History Diagnosis Date ??? Hypertension ??? Hyperlipidemia ??? Coronary artery disease ??? Other chronic pain lower back, rt butock, right leg 2/2 sciatica pain ??? Carotid artery stenosis Right internal ??? Cardiac ischemia 04/24/2015 Positive stress test 04/18/15 Alfred Rios MD ??? S/P CABG (coronary artery bypass graft) 05/25/2015 ??? CRF (chronic renal failure), stage 2 (mild) 04/17/2015 ??? Family history of GA (myocardial infarction) 04/16/2015 PAST SURGICAL HISTORY: Past Surgical History Procedure Laterality Date ??? Rotator cuff repair rt/lt Right 2009 ??? Arthroscopy knee rt/lt Bilateral 1989 ??? Achilles release Left 2009 ??? Septoplasty 1977 ??? Vasectomy 1979 ??? Coronary angiography adult order 05/06/15 ??? Davinci bypass artery coronary N/A 05/22/2015 Procedure: DAVINCI BYPASS ARTERY CORONARY; Surgeon: Fede Celis MD; Location: OR ??? Coronary artery bypass 05/22/2015 RIVAS to LAD ??? Colonoscopy N/A 07/24/2016 Procedure: COLONOSCOPY; Surgeon: Joi Ludwig MD; Location: GI FAMILY HISTORY: Family History Problem Relation Age of Onset ??? CANCER Father kidney ??? Hyperlipidemia Brother ??? Hyperlipidemia Sister ??? Coronary Artery Disease Father 40 ??? Hyperlipidemia Mother ??? CEREBROVASCULAR DISEASE Brother 66 perioperatively ??? CEREBROVASCULAR DISEASE Mother SOCIAL HISTORY: Social History Social History ??? Marital Status: Spouse Name: N/A ??? Number of Children: N/A ??? Years of Education: N/A Social History Main Topics ??? Smoking status: Former Smoker -- 1.00 packs/day for 35 years Types: Cigarettes Quit date: 10/22/1999 ??? Smokeless tobacco: Never Used ??? Alcohol Use: 0.0 oz/week 0 Standard drinks or equivalent per week Comment: 1-2 beers daily ??? Drug Use: No ??? Sexual Activity: No Other Topics Concern ??? Parent/Sibling W/ Cabg, Mi Or Angioplasty Before 65f 55m? No ??? Caffeine Concern No ??? Special Diet No ??? Exercise No Elliptycal , weights, cariac rehab Social History Narrative Review of Systems: Skin: Negative Eyes: Positive for glasses ENT: Positive for hearing loss right ear Respiratory: Positive for dyspnea on exertion steep hills Cardiovascular: dizziness;Positive for dizzy when coming up from bending over Gastroenterology: Negative Genitourinary: Negative Musculoskeletal: Positive for joint stiffness occasionally Neurologic: Negative Psychiatric: Negative Heme/Lymph/Imm: Positive for easy bruising easier now Endocrine: Physical Exam: Vitals: BP 118/78 mmHg Pulse 63 Ht 1.676 m (5' 6) Wt 75.297 kg (166 lb) BMI 26.81 kg/m2 SpO2 98% Constitutional: well developed;well nourished Skin: warm and dry to the touch surgical scars well-healed Head: normocephalic Eyes: sclera white ENT: no pallor or cyanosis;dentition good Neck: not assessed this visit Chest: clear to auscultation Cardiac: regular rhythm;normal S1 and S2 Abdomen: abdomen soft Vascular: pulses full and equal Extremities and Back: no edema Neurological: no gross motor deficits;affect appropriate CC Alton Rm MD [facility] [address] [place] [address] 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 Billingsley is a very pleasant 66-year-old gentleman status post robotic-assisted coronary artery bypass surgery with a RIVAS to the LAD in 05/[address] Celis for a known left main and ostial LAD stenosis, moderate right coronary artery which was not revascularized, who returns in annual followup. The patient has been feeling reasonably well; however, since I have seen him last, he has developed substernal chest heaviness with maximal exertion. He does not feel that the chest heaviness Is necessarily similar to his prior anginal symptoms. Typically the chest heaviness occurs while he is walkinghis dog up a large hill. When he rests, the chest heaviness goes away. He is not having any associated shortness of breath or nausea. Please see my separate note with his full physical examination. IMPRESSION AND PLAN: 1. Coronary artery disease - Mr. Billingsley is having chest heaviness with maximal exertion, which is newsince I have seen him last. I have asked him to undergo an exercise myocardial perfusion imaging study for risk stratification. If this shows evidence for myocardial ischemia, I will plan on sending him for a cardiac catheterization. Otherwise, he will remain on a combination of aspirin 81 mg a day, atorvastatin 40 mg daily, and metoprolol tartrate 25 mg twice a day for stroke prevention unchanged. 2. Status post robotic-assisted RIVAS to the LAD in 05/2013 - as above, the patient is having recurrent chest heaviness and I have asked him to undergo a stress test. 3. Hypertension - the patient's blood pressure is currently well controlled. 4. Dyslipidemia - the patient will remain on lifelong atorvastatin 40 mg daily, unchanged for secondary prevention. He follows with his primary provider for his dyslipidemia. I will plan to see Mr. Billingsley back after his stress test has been completed. 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 documented in this encounter Plan of Treatment Scheduled Referrals Name Type Priority Associated Diagnoses Order S chedule Follow-Up with Referral Routine Chronic ischemic heart Exp ected: 08/28/2016 Filter Operator disease (Approximate), S/P CABG (coronary Expires: 08/05/2017 artery bypass gr aft) Chest pain, unspecified type documented as of this encounter Results NM Exercise stress test (nuc card) (08/14/2016 1:[address] DRIVER) Anatomical Region Laterality Modality Chest Nuclear Medicine Specimen (Source) Anatomical Location Collection Method / Collectio n Time Received Time / Laterality Volume Narrative 08/14/2016 4:[address]UCK DRIVER GATED MYOCARDIAL PERFUSION SCINTIGRAPHY EXERCISE- ONE DAY STUDY 08/14/2016 1:16 PM ??ANTHONY BILLINGSLEY ??66 years ??Male ??1950. Indication/Clinical History: Coronary ar berta disease with chest discomfort and history of coronary arter y bypass Impression 1. ??Myocardial perfusion imaging using single isotope technique demonstrated no significant perfusion de fect consistent with significant ischemia or infarct. There i s mild decrease in inferolateral activity at the base on elyse th rest and stress supine images not present on prone images most likely related to diaphragm attenuation/bowel uptake artifact.. 2. Gated images demonstrated normal size left ventricle with adequate overall contractility and no significant regional wall motion abnormality. ??The left ventricular syst olic function is normal with ejection fraction 54%. 3. Compared to the prior study from not applicable . Procedure The patient performed treadmill exercise using a Rafael protocol, completing 10 minutes and 20 seconds wit h an estimated workload of 13.4 METS. ??The test was terminated due to shortness of breath. The heart rate was 68 beats per minute at seline and increased to 148 beats at peak exercise, which was 130/60 % of the maximum predicted heart rate. The rest blood pressure was 130/60 mm/Hg and peak blood pressure is 186/68mm/Hg with rate pressu re product of 27,528. The patient experienced shortness of breath during the test. The patient was not on a beta brisa. Myocardial perfusion imaging was perform ed at rest, approximately 45 minutes after the injection intravenousl y of 3.54of Tc-99m Myoview. At peak exercise, the patient was injected intravenously with 10.04 mCi of ??Tc-99m Myoview and exercise continu ed for approximately 1 minute. Gated post-stress tomographic imaging wa s performed approximately 30 minutes after stress EKG Findings The resting EKG demonstrated normal sinu s rhythm with no significant ST abnormality small Q waves in lead III . The stress EKG demonstrated sinus tachycardia with no significant ST segment depression. Tomographic Findings Overall, the study quality is adequate . On the stress images, there is no significant perfusion defect with slight decrease in inferolateral activity at the base. On t he rest images, there is no significant perfusion defect with slight decrease in inferior activity at the base . Gated images demonstrated normal size left ventricle with adequate overall contractility and no significant regional wall motion abnormality. The left ventricular ejection fraction was calculated to be 54% with stress 62% res t. TID was absent. FOSTER ORTEGA MD Procedure Note Foster Ortega MD - 08/14/2016F ormatting of this note might be different from the original. GATED MYOCARDIAL PERFUSION SCINTIGRAPHY EXERCISE- ONE DAY STUDY 08/14/2016 1:16 PM ANTHONY BILLINGSLEY 66 yea rs Male 1950. Indication/Clinical History: Coronary ar berta disease with chest discomfort and history of coronary arter y bypass Impression 1. Myocardial perfusion imaging using si ngle isotope technique demonstrated no significant perfusion de fect consistent with significant ischemia or infarct. There i s mild decrease in inferolateral activity at the base on elyse th rest and stress supine images not present on prone images most likely related to diaphragm attenuation/bowel uptake artifact.. 2. Gated images demonstrated normal size left ventricle with adequate overall contractility and no significant regional wall motion abnormality. The left ventricular systol ic function is normal with ejection fraction 54%. 3. Compared to the prior study from not applicable . Procedure The patient performed treadmill exercise using a Rafael protocol, completing 10 minutes and 20 seconds wit h an estimated workload of 13.4 METS. The test was terminated due t o shortness of breath. The heart rate was 68 beats per minute at seline and increased to 148 beats at peak exercise, which was 130/60 % of the maximum predicted heart rate. The rest blood pressure was 130/60 mm/Hg and peak blood pressure is 186/68mm/Hg with rate pressu re product of 27,528. The patient experienced shortness of breath during the test. The patient was not on a beta brisa. Myocardial perfusion imaging was perform ed at rest, approximately 45 minutes after the injection intravenousl y of 3.54of Tc-99m Myoview. At peak exercise, the patient was injected intravenously with 10.04 mCi of Tc-99m Myoview and exercise continued for approximately 1 minute. Gated post-stress tomographic imaging wa s performed approximately 30 minutes after stress EKG Findings The resting EKG demonstrated normal sinu s rhythm with no significant ST abnormality small Q waves in lead III . The stress EKG demonstrated sinus tachycardia with no significant ST segment depression. Tomographic Findings Overall, the study quality is adequate . On the stress images, there is no significant perfusion defect with slight decrease in inferolateral activity at the base. On t he rest images, there is no significant perfusion defect with slight decrease in inferior activity at the base . Gated images demonstrated normal size left ventricle with adequate overall contractility and no significant regional wall motion abnormality. The left ventricular ejection fraction was calculated to be 54% with stress 62% res t. TID was absent. FOSTER ORTEGA MD Alton Rm MD IMG NM ORDERABLES documented in this encounter Visit Diagnoses Diagnosis Chest pain, unspecified type - Primary Chronic ischemic heart disease Chronic ischemic heart disease, unspecif ied S/P CABG (coronary artery bypass graft) Postsurgical aortocoronary bypass status Chronic ischemic heart disease Chronic ischemic heart disease, unspecif ied Chest pain, unspecified type documented in this encounter Care Teams Philosophy Professor Relationship Specialty Start Date End Date Alfred Rios MD PCP - General Family Practice 04/18/15 Alfred Rios MD PCP - Assigned PCP 03/22/15 09/13/18 [id number] CARL LAWLER [id number] Alfred Rios MD Assigned PCP 03/22/15 06/01/20 [id number] CARL LAWLER [id number] documented as of this encounter
--- OUTSIDE RECORDS SUMMARY | 2022-04-28 22:55 | XMS_ITS | Encounter Summary ---
:1950 Author Organization [place] Address [address] [facility] [place] [address] Care Team Providers Name Role Phone Alfred Rios MD Primary Care Provider [phone] Alfred Rios MD Unavailable Alfred Rios MD Unavailable Reason for Visit (Routine) - Closed Specialty Diagnoses / Procedures Referred By Contact Refer red To Contact Radiology / Diagnoses epic, sb pt Rh Ultrasound cc Radiology. Procedures US ABDOMINAL AORTIC LIMITED [address] [place] [address] Phone: Fax: Referral ID Status Reason Start Date Expiration Date Visits Requ ested Visits Authorized [id number] Closed 06/25/2016 06/25/2017 1 1 Encounter Details Date Type Department Care Team Description 06/25/2016 Hospital Encounter [facility] Alfred Rios Per logan history of [facility] MD Nicholas tobacco use, [facility] [address] [address] presenting hazards [address] [facility] [address] [place] [id number] Social History Tobacco Use Types Packs/Day Years [...] needed graft) for mild pain or fever atorvastatin (LIPITOR) 40 Take 1 tablet (40 90 tablet 3 01/201606/18/2017 MG tabletIndications: mg) by mouth daily Hyperlipidemia with target LDL less than 100 metoprolol (LOPRESSOR) 25 Take 1 tablet (25 180 tablet 3 01/201606/18/2017 MG tabletIndications: S/P mg) by mouth 2 CABG (coronary artery times daily bypass graft) nitroglycerin (NITROSTAT) One tablet under 25 tablet 3 01/1006/18/2017 0.4 MG SL the tongue every 5 tabletIndications: minutes if needed Abnormal cardiovascular for chest pain. stress test, Status post May repeat every 5 coronary angiogram minutes for a maximum of 3 doses in 15 minutes documented as of this encounter Plan of Treatment Not on filedocumented as of this encounter Procedures Procedure Name Priority Date/Time Associated Diagnosis Comme nts US ABDOMINAL AORTA Routine 06/25/2016 10:30 AM Personal histor y of Results for this CORPORATE LEARNING CONSULTANT tobacco use, procedure are i n presenting hazards the resul ts to health section. documented in this encounter Results US abdominal aorta limited (06/25/2016 10:30 AM CORPORATE LEARNING CONSULTANT) Anatomical Region Laterality Modality Abdomen/Pelvis Ultrasound Specimen (Source) Anatomical Location Collection Method / Collectio n Time Received Time / Laterality Volume Impressions 06/25/2016 12:30 PM CORPORATE LEARNING CONSULTANT IMPRESSION: No evidence of abdominal aortic aneurysm. ANTONY GIBSON MD Narrative 06/25/2016 12:30 PM CORPORATE LEARNING CONSULTANT ULTRASOUND ??ABDOMINAL AORTA LIMITED 06/25/2016 10:30 AM HISTORY: Personal history of nicotine de pendence. FINDINGS: Examination of the abdominal a al is performed. Proximal abdominal aorta: 2.0 x 2.1 cm. Mid abdominal aorta: 1.7 x 1.6 cm. Distal abdominal aorta: 1.8 x 1.7 cm. Sm all amount of distal plaque is noted. Proximal right common iliac artery is no rmal in caliber measuring 1.0 cm in maximal diameter. Proximal left common iliac artery is nor mal in caliber measuring 1.1 cm in maximal diameter. Procedure Note Antony Gibson MD - 06/25/2016Form atting of this note might be different from the original. ULTRASOUND ABDOMINAL AORTA LIMITED 06/25 10:30 AM HISTORY: Personal history of nicotine de pendence. FINDINGS: Examination of the abdominal a al is performed. Proximal abdominal aorta: 2.0 x 2.1 cm. Mid abdominal aorta: 1.7 x 1.6 cm. Distal abdominal aorta: 1.8 x 1.7 cm. Sm all amount of distal plaque is noted. Proximal right common iliac artery is no rmal in caliber measuring 1.0 cm in maximal diameter. Proximal left common iliac artery is nor mal in caliber measuring 1.1 cm in maximal diameter. IMPRESSION: No evidence of abdominal aor tic aneurysm. ANTONY GIBSON MD Alfred Rios MD IMG US ORDERABLES documented in this encounter Visit Diagnoses Diagnosis Personal history of tobacco use, present ing hazards to health documented in this encounter Care Teams Licensing And Registration Director Relationship Specialty Start Date End Date Alfred Rios MD PCP - General Family Practice 04/18/15 Alfred Rios MD PCP - Assigned PCP 03/22/15 09/13/18 [id number] CARL LAWLER [id number] Alfred Rios MD Assigned PCP 03/22/15 06/01/20 [id number] CARL LAWLER [id number] documented as of this encounter
--- OUTSIDE RECORDS SUMMARY | 2022-04-28 22:55 | XMS_ITS | Encounter Summary ---
:1950 Author Organization [place] Address [address] [place] [address] Care Team Providers Name Role Phone Alfred Rios MD Primary Care Provider [phone] Alfred Rios MD Unavailable Alfred Rios MD Unavailable Reason for Visit Reason Onset Date Comments Medication Refill atorvastatin (LIPITO R) 40 MG tablet Refill Request 08/16/2018 metoprolol (LOPRESSO R) 25 MG tablet Encounter Details Date Type Department Care Team Description 08/16/2018 Refill [facility] Yvonne Peterson MD (atorvastatin (LIPITOR) [facility], [address] [place] [address] AV 40 MG tablet); Refill [address] [place] [address] Request (metoprolol [place], [place] [phone] (Wo rk) (LOPRESSOR) 25 [place] [id number] tablet) [phone] Social History Tobacco Use Types Packs/Day Years [...] Telephone Encounter - Regina Burrows RN - 08/17/2018 8:40 AM CST Medication is being filled for 1 time refill only due to: Patient needs labs due for yearly fasting cholesterol lab work. Patient needs to be seen because he is due for his yearly physical exam. Lettersent to patient. Regina Burrows RN COMMUNICATIONS SPECIALIST Telephone Encounter - Osmin Pemberton - 08/16/2018 10:51 AM CST Requested Prescriptions Pending Prescriptions Disp Refills ??? atorvastatin (LIPITOR) 40 MG tablet [Pharmacy Med Name: ATORVASTATIN 40 MG TABLET] Last Written Prescription Date: 06/18/17 Last Fill Quantity: 90 TABLET, # refills: 3 Last office visit: 05/10/2018 with prescribing provider: ANDREW No Office Visit: 90 tablet 3 Sig: TAKE 1 TABLET BY MOUTH EVERY DAY Statins Protocol Failed - 08/16/2018 1:33 AM Failed - LDL on file in past 12 months Recent Labs Lab Test 06/18/17 0925 LDL 52 Passed - No abnormal creatine kinase in past 12 months No lab results found. Passed - Recent (12 mo) or future (30 days) visit within the authorizing provider's specialty Patient had office visit in the last 12 months or has a visit in the next 30 days with authorizing provider or within the authorizing provider's specialty. See Patient Info tab in inbasket, or Choose Columns in Meds & Orders section of the refill encounter. Passed - Medication is active on med list Passed - Patient is age 18 or older ??? metoprolol tartrate (LOPRESSOR) 25 MG tablet [Pharmacy Med Name: METOPROLOL TARTRATE 25 MG TAB] Last Written Prescription Date: 06/18/17 Last Fill Quantity: 180 TABLET, # refills: 3 Last office visit: 05/10/2018 with prescribing provider: ANDREW No Office Visit: 180 tablet 3 Sig: TAKE 1 TABLET (25 MG) BY MOUTH 2 TIMES DAILY Beta-Blockers Protocol Passed - 08/16/2018 1:33 AM Passed - Blood pressure under 140/90 in past 12 months BP Readings from Last 3 Encounters: 05/10/18 124/70 09/01/17 112/56 06/18/17 110/70 Passed - Patient is age 6 or older Passed - Recent (12 mo) or future (30 days) visit within the authorizing provider's specialty Patient had office visit in the last 12 months or has a visit in the next 30 days with authorizing provider or within the authorizing provider's specialty. See Patient Info tab in inbasket, or Choose Columns in Meds & Orders section of the refill encounter. Passed - Medication is active on med list COMMUNICATIONS SPECIALIST documented in this encounter Plan of Treatment Not on filedocumented as of this encounter Visit Diagnoses Diagnosis Hyperlipidemia with target LDL less than 100 Other and unspecified hyperlipidemia Essential hypertension, benign documented in this encounter Care Teams Automotive Service Management Teacher Relationship Specialty Start Date End Date Alfred Rios MD PCP - General Family Practice 04/18/15 Alfred Rios MD PCP - Assigned PCP 03/22/15 09/13/18 [id number] CARL LAWLER [id number] Alfred Rios MD Assigned PCP 03/22/15 06/01/20 [id number] CARL LAWLER [id number] documented as of this encounter
--- OUTSIDE RECORDS SUMMARY | 2022-04-28 22:55 | XMS_ITS | Encounter Summary ---
:1950 Author Organization [place] Address [address] [facility] [place] [address] Care Team Providers Name Role Phone Alfred Rios MD Primary Care Provider [phone] Alfred Rios MD Unavailable Alfred Rios MD Unavailable Reason for Referral Diagnostic Procedure Outpatient - Closed Specialty Diagnoses / Procedures Referred By Contact Refer red To Contact Diagnoses Screen for colon cancer Alfred Rios M [facility] [address] [place] [address] [place] [address] Phone: Fax: Referral ID Status Reason Start Date Expiration Date Visits Requ ested Visits Authorized [id number] Closed 06/17/2016 06/17/2017 1 1 ORY TUTOR Reason for Visit Reason Comments Wellness Visit fasting for labs Encounter Details Date Type Department Care Team Description 06/17/2016 Office Visit Nat[facility] Alfred Gooden Medicare annual wellness visit, initial (Primary Dx); Clinic Yvonne Peterson MD Screen for colon cancer; [place] [address] Need for hepatitis C screening test; Road, [address] [place], [place] Need for prophylactic vaccin ation against Streptococcus pneumoniae (pneumococcus); [place] [address] S/P CABG (coronary artery bypass graft); [id number] Hyperlipidemia with target L DL less than 100; Personal history of tobacco use, present ing hazards to health Social History Tobacco Use Types Packs/Day Years [...] Sign Reading Time Taken Comments Blood Pressure 102/70 06/17/2016 8:38 AM HISTORY TUTOR Pulse 57 06/17/2016 8:38 AM HISTORY TUTOR Temperature 36.4 ??C (97.6 ??F) 06/17/2016 8:38 AM HISTORY TUTOR Respiratory Rate 14 06/17/2016 8:38 AM HISTORY TUTOR Oxygen Saturation 98% 06/17/2016 8:38 AM HISTORY TUTOR Inhaled Oxygen Concentration - - Weight 74.4 kg (164 lb) 06/17/2016 8:38 AM HISTORY TUTOR Height 167.6 cm (5' 6) 06/17/2016 8:38 AM HISTORY TUTOR Body Mass Index 26.47 06/17/2016 8:38 AM HISTORY TUTOR documented in this encounter Patient Instructions Patient InstructionsToGill menard, CONVERTER SKIMMER - 06/17/2016 7:24 AM CST Preventive Health Recommendations: Male Ages 65 and over Yearly exam: ?? See your health care provider every year in order to o Review health changes. o Discuss preventive care. o Review your medicines if your doctor has prescribed any. ??? Talk with your health care provider about whether you should have a test to screen for prostate cancer (PSA). ??? Every 3 years, have a diabetes test (fasting glucose). If you are at risk for diabetes, you should have this test more often. ??? Every 5 years, have a cholesterol test. Have this test more often if you are at risk for high cholesterol or heart disease. ??? Every 10 years, have a colonoscopy. Or, have a yearly FIT test (stool test). These exams will check for colon cancer. ??? Talk to with your health care provider about screening for Abdominal Aortic Aneurysm if you havea family history of AAA or have a history of smoking. Shots: ??? Get a flu shot each year. ??? Get a tetanus shot every 10 years. ??? Talk to your doctor about your pneumonia vaccines. There are now two you should receive - Pneumovax (PPSV 23) and Prevnar (PCV 13). ??? Talk to your doctor about a shingles vaccine. ??? Talk to your doctor about the hepatitis B vaccine. Nutrition: ??? Eat at least 5 servings of fruits and vegetables each day. ??? Eat whole-grain bread, whole-wheat pasta and brown rice instead of white grains and rice. ??? Talk to your doctor about Calcium and Vitamin D. Lifestyle ??? Exercise for at least 150 minutes a week (30 minutes a day, 5 days a week). This will help you control your weight and prevent disease. ??? Limit alcohol to one drink per day. ??? No smoking. ??? Wear sunscreen to prevent skin cancer. ??? See your dentist every six months for an exam and cleaning. ??? See your eye doctor every 1 to 2 years to screen for conditions such as glaucoma, macular degeneration and cataracts. ORY TUTOR documented in this encounter Progress Notes Alfred Rios MD - 06/17/2016 7:24 AM CST SUBJECTIVE: Anthony Chun is a 66 year old male who presents for Preventive Visit. Are you in the first 12 months of your Medicare Part B coverage? No Healthy Habits: ?? Do you get at least three servings of calcium containing foods daily (dairy, green leafy vegetables, etc.)? yes ?? Amount of exercise or daily activities, outside of work: 6-7 day(s) per week ?? Problems taking medications regularly No ?? Medication side effects: No ?? Have you had an eye exam in the past two years? yes ?? Do you see a dentist twice per year? yes ?? Do you have sleep apnea, excessive snoring or daytime drowsiness?no COGNITIVE SCREEN 1) Repeat 3 items (Banana, [place], Chair) 2) Clock draw: NORMAL 3) 3 item recall: Recalls 3 objects Results: 3 items recalled: COGNITIVE IMPAIRMENT LESS LIKELY Mini-CogTM Copyright S Moe. Licensed by the author for use in [facility]; reprintedwith permission (arlet@[facility]). All rights reserved. PROBLEMS TO ADD ON... All Histories reviewed and updated in [facility] as appropriate. Social History Substance Use Topics ??? Smoking status: Former Smoker -- 1.00 packs/day for 35 years Types: Cigarettes Quit date: 10/22/1999 ??? Smokeless tobacco: Never Used ??? Alcohol Use: 0.0 oz/week 0 Standard drinks or equivalent per week Comment: 1-2 beers daily Today's PHQ-2 Score: PHQ-2 (??1999 Pfizer) 06/17/2016 06/16/2016 Q1: Little interest or pleasure in doing things 1 - Q2: Feeling down, depressed or hopeless 1 - PHQ-2 Score 2 - Little interest or pleasure in doing things - Several days Feeling down, depressed or hopeless - Several days PHQ-2 Score - 2 Do you feel safe in your environment - No Do you have a Health Care Directive?: Yes: Advance Directive has been received and scanned. Current providers sharing in care for this patient include: Patient Care Team: Alfred Rios MD as PCP - General (Family Practice) ?? Hearing impairment: some hearing change in right ear, has very soft voice- finds that harderto hear ?? Ability to successfully perform activities of daily living: Yes, no assistance needed ?? Fall risk: Fallen 2 or more times in the past year?: No Any fall with injury in the past year?: No ?? Home safety: none identified click delete button to remove this line now The following health maintenance items are reviewed in Epic and correct as of today: Health Maintenance Topic Date Due ??? HEPATITIS C SCREENING 02/08/1968 ??? AORTIC ANEURYSM SCREENING (SYSTEM ASSIGNED) 2015 ??? COLON CANCER SCREEN (SYSTEM ASSIGNED) 03/12/2015 ??? INFLUENZA VACCINE (SYSTEM ASSIGNED) 03/12/2016 ??? FALL RISK ASSESSMENT 04/16/2016 ??? PNEUMOCOCCAL (2 of 2 - PPSV23) 04/16/2016 ??? TETANUS IMMUNIZATION (SYSTEM ASSIGNED) 12/25/2019 ??? LIPID SCREEN Q5 YR MALE (SYSTEM ASSIGNED) 04/16/2020 ??? ADVANCE DIRECTIVE PLANNING Q5 YRS (NO INBASKET) 04/16/2020 Pneumonia Vaccine: due for pneumovax 23 ROS: Constitutional, HEENT, cardiovascular, pulmonary, GI, , musculoskeletal, neuro, skin, endocrine and psych systems are negative, except as otherwise noted. Problem list, Medication list, Allergies, and Medical/Social/Surgical histories reviewed in [facility] andupdated as appropriate. OBJECTIVE: BP 102/70 mmHg Pulse 57 Temp(Src) 97.6 ??F (36.4 ??C) (Oral) Resp 14 Ht 5' 6 (1.676 m) Wt164 lb (74.39 kg) BMI 26.48 kg/m2 SpO2 98% Estimated body mass index is 26.48 kg/(m^2) as calculated from the following: Height as of this encounter: 5' 6 (1.676 m). Weight as of this encounter: 164 lb (74.39 kg). EXAM: GENERAL: healthy, alert and no distress [...] normal PSYCH: mentation appears normal, affect normal/bright ASSESSMENT / PLAN: ICD-10-CM 1. Medicare annual wellness visit, initial Z00.00 LIPID REFLEX TO DIRECT LDL PANEL Basic metabolic panel (Ca, Cl, CO2, Creat, Gluc, K, Na, BUN) 2. Screen for colon cancer Z12.11 GASTROENTEROLOGY ADULT REFERRAL +/- PROCEDURE 3. Need for hepatitis C screening test Z11.59 Hepatitis C Screen Reflex to HCV RNA Quant and Genotype 4. Need for prophylactic vaccination against Streptococcus pneumoniae (pneumococcus) Z23 PNEUMOCOCCAL VACCINE ADULT, SQ OR IM (PPSV23) 5. S/P CABG (coronary artery bypass graft) Z95.1 LIPID REFLEX TO DIRECT LDL PANEL metoprolol (LOPRESSOR) 25 MG tablet 6. Hyperlipidemia with target LDL less than 100 E78.5 LIPID REFLEX TO DIRECT LDL PANEL atorvastatin (LIPITOR) 40 MG tablet End of Life Planning: Patient currently has an advanced directive: Yes. Practitioner is supportive of decision. COUNSELING: Reviewed preventive health counseling, as reflected in patient instructions Consider AAA screening for ages 65-75 and smoking history Regular exercise Vision screening Estimated body mass index is 26.48 kg/(m^2) as calculated from the following: Height as of this encounter: 5' 6 (1.676 m). Weight as of this encounter: 164 lb (74.39 kg). reports that he quit smoking about 16 years ago. His smoking use included Cigarettes. He has a 35 pack-year smoking history. He has never used [...] Cohorts Equation Calculator Breast Cancer Risk Calculator FRAX Risk Assessment ICSI Preventive Guidelines Dietary Guidelines for Americans, 2010 USDA's MyPlate ASA Prophylaxis Lung CA Screening Alfred Rios MD [facility] ORY TUTOR documented in this encounter Nursing Notes Gill Aragon, CONVERTER SKIMMER - 06/17/2016 8:47 AM CST Chief Complaint Patient presents with ??? Wellness Visit fasting for labs Initial BP 102/70 mmHg Pulse 57 Temp(Src) 97.6 ??F (36.4 ??C) (Oral) Resp 14 Ht 5' 6 (1.676m) Wt 164 lb (74.39 kg) BMI 26.48 kg/m2 SpO2 98% Estimated body mass index is 26.48 kg/(m^2) as calculated from the following: Height as of this encounter: 5' 6 (1.676 m). Weight as of this encounter: 164 lb (74.39 kg). BP completed using cuff size: richa Aragon CMA ORY TUTOR documented in this encounter Plan of Treatment Scheduled Referrals Name Type Priority Associated Diagnoses Order S [facility] GASTROENTEROLOGY ADULT Referral Routine Screen for colon O rdered: 06/17/2016 REFERRAL +/- PROCEDURE cancer documented as of this encounter Procedures Procedure Name Priority Date/Time Associated Diagnosis Comme nts HEPATITIS C SCREEN Routine 06/17/2016 9:23 AM Need for hepatit is C Results for this REFLEX TO HCV RNA HISTORY TUTOR screening test procedur e are in QUANT AND GENOTYPE the resul ts section. BASIC METABOLIC Routine 06/17/2016 9:23 AM Medicare annual Res ults for this PANEL HISTORY TUTOR wellness visit, procedure ar e in initial the results section. documented in this encounter Results LIPID REFLEX TO DIRECT LDL PANEL (08/05/2016 9:32 AM HISTORY TUTOR) [facility] gist Method Time Signature Cholesterol 137 <200 [place] mg/dL [facility] Triglycerides 57 <150 [place] mg/dL [facility] HDL Cholesterol 67 >39 mg/dL [facility] LDL Cholesterol 59 <100 [place] Calculated mg/dL [facility] Comment: Desirable: <100 mg/dl Non HDL Cholesterol 70 <130 mg/dL [facility] Specimen Anatomical Collection Method Collection Time Receive d Time (Source) Location / / Volume Laterality Blood specimen 08/05/2016 9:32 AM 017 9:37 (specimen) HISTORY TUTOR AM HISTORY TUTOR Alfred Rios MD LAB - BLOOD ORDERABLES Performing Organization Address City/State/ZIP Code Phon e Number [facility] [address] [place] [address] US abdominal aorta limited (06/25/2016 10:30 AM HISTORY TUTOR) Anatomical Region Laterality Modality Abdomen/Pelvis Ultrasound Specimen (Source) Anatomical Location Collection Method / Collectio n Time Received Time / Laterality Volume Impressions 06/25/2016 12:30 PM HISTORY TUTOR IMPRESSION: No evidence of abdominal aortic aneurysm. ANTONY GIBSON MD Narrative 06/25/2016 12:30 PM HISTORY TUTOR ULTRASOUND ??ABDOMINAL AORTA LIMITED 06/25/2016 10:30 AM [...] MD Alfred Rios MD IMG US ORDERABLES Basic metabolic panel (Ca, Cl, CO2, Creat, Gluc, K, Na, BUN) (06/17/2016 9:23 AM HISTORY TUTOR) athologist Signature Sodium 143 133 - 144 [facility] mmol/L [facility] Potassium 4.5 3.4 - 5.3 [facility] mmol/L [facility] Chloride 107 94 - 109 [facility] mmol/L [facility] Carbon Dioxide 26 20 - 32 [facility] S mmol/L [facility] Anion Gap 10 3 - 14 [facility] mmol/L [facility] Glucose 99 70 - 99 [facility] mg/dL [facility] Comment: Fasting specimen Urea Nitrogen 15 7 - 30 mg/dL [facility] Creatinine 1.09 0.66 - 1.25 mg/dL [place] [facility] IN[facility] GFR Estimate 68 >60 mL/min/1.7m2 [place] C LIN[facility] Comment: Non GFR Calc GFR Estimate If Black 82 >60 mL/min/1.7m2 F [facility] Comment: GFR Calc Calcium 9.3 8.5 - 10.1 mg/dL [place] [facility] ICS [facility] Specimen Anatomical Collection Method Collection Time Receive d Time (Source) Location / / Volume Laterality Blood specimen 06/17/2016 9:23 AM 016 9:24 (specimen) HISTORY TUTOR AM HISTORY TUTOR Alfred Rios MD LAB - BLOOD ORDERABLES Performing Organization Address City/[facility]/ZIP Code Phon e Number [facility] [address] [place] [address] Hepatitis C Screen Reflex to HCV RNA Quant and Genotype (06/17/2016 9:23 AM HISTORY TUTOR) Component Value Ref Test Analysis Performed At Patholo gist Range Method Time Signature Hepatitis C Nonreactive NR [facility] Antibody Assay performance character istics have not been established for [facility], [facility] infants, and children [facility] Specimen Anatomical Collection Method Collection Time Receive d Time (Source) Location / / Volume Laterality Blood specimen 06/17/2016 9:23 AM 016 9:24 (specimen) HISTORY TUTOR AM HISTORY TUTOR Alfred Rios MD LAB - BLOOD ORDERABLES Performing Organization Address City/State/ZIP Code Phon e Number [facility] [address] [place] [address] [facility] documented in this encounter Visit Diagnoses Diagnosis Medicare annual wellness visit, initial - Primary Routine general medical examination at a health care facility Screen for colon cancer Special screening for malignant neoplasm s, colon Need for hepatitis C screening test Special screening examination for other specified viral diseases Need for prophylactic vaccination agains t Streptococcus pneumoniae (pneumococcus) Need for prophylactic vaccination agains t streptococcus pneumoniae (pneumococcus) S/P CABG (coronary artery bypass graft) Postsurgical aortocoronary bypass status Hyperlipidemia with target LDL less than 100 Other and unspecified hyperlipidemia Personal history of tobacco use, present ing hazards to health Personal history of tobacco use, present ing hazards to health documented in this encounter Care Teams Dining Room Captain Relationship Specialty Start Date End Date Alfred Rios MD PCP - General Family Practice 04/18/15 Alfred Rios MD PCP - Assigned PCP 03/22/15 09/13/18 [id number] CARL LAWLER [id number] Alfred Rios MD Assigned PCP 03/22/15 06/01/20 [id number] CARL LAWLER [id number] documented as of this encounter
--- OUTSIDE RECORDS SUMMARY | 2022-04-28 22:55 | XMS_ITS | Encounter Summary ---
:1950 Author Organization [facility] Address [address] [place] [address] Care Team Providers Name Role Phone Alfred Rios MD Primary Care Provider [phone] Alfred Rios MD Unavailable Alfred Rios MD Unavailable Reason for Visit (Routine) - Closed Specialty Diagnoses / Procedures Referred By Contact Refer red To Contact Cardiology Diagnoses Chronic ischemic heart disease Chest pain, unspecified type Sh Cv Nuclear Medicine Procedures NM SH CV MPI [address] [facility] [address] [place] [address] Phone: Referral ID Status Reason Start Date Expiration Date Visits Requ ested Visits Authorized [id number] Closed 08/05/2016 08/05/2017 1 1 Encounter Details Date Type Department Care Team Description 08/14/2016 Hospital Encounter [facility] Flowers C hronic ischemic heart disease; [facility] Chest pain, unspecified type [address] [facility] [address] [facility] [address] AND VASCULAR [place] [id number] [address] [phone] [place] [address] Social History Tobacco Use Types Packs/Day [...] Diagnosis Comme nts NM MPI TREADMILL Routine 08/14/2016 1:16 PM Chronic ischemic R esults for this LINE PREP COOK heart disease procedure are in Chest pain, the results unspecified type section. documented in this encounter Results NM Exercise stress test (nuc card) (08/14/2016 1:16 PM LINE PREP COOK) Anatomical Region Laterality Modality Chest Nuclear Medicine Specimen (Source) Anatomical Location Collection Method / Collectio n Time Received Time / Laterality Volume Narrative 08/14/2016 4:44 PM LINE PREP COOK GATED MYOCARDIAL PERFUSION SCINTIGRAPHY EXERCISE- ONE DAY STUDY 08/14/2016 1:16 PM ??RUSSEL BILLINGSLEY ??66 years ??Male ??1950. Indication/Clinical History: [...] rate was 68 beats per minute at ba seline and increased to 148 beats at [...] EXERCISE- ONE DAY STUDY 08/14/2016 1:16 PM RUSSEL BILLINGSLEY 66 yea rs Male 1950. Indication/Clinical [...] rate was 68 beats per minute at ba seline and increased to 148 beats at [...] TID was absent. FOSTER ORTEGA MD Alton Flowers MD IMG NM ORDERABLES documented in this encounter Visit Diagnoses Diagnosis Chronic ischemic heart disease Chronic ischemic heart disease, unspecif ied Chest pain, unspecified type documented in this encounter Administered Medications Inactive Administered Medications - up to 3 most recent administrations Medication Order MAR Action Action Date Dose Rate Site sodium chloride (PF) 0.9% PF Given 08/14/2016 11:35 AM LINE PREP COOK 10 mL s flush 10 mL 10 mL, Intravenous, ONCE, On Wed08/14/16 at 1130, For 1 dose sodium chloride (PF) 0.9% PF flush 10 mL Given 08/14/2016 1:13 PM LINE PREP COOK 10 mLs 10 mL, Intravenous, ONCE, On Wed08/14/16 at 1315, For 1 dose technetium Tc 99m tetrofosmin 2UD study Given 08/14/2016 1:14 PM LINE PREP COOK 10.04 mCi (MYOVIEW) radioisotope injection 3-43.2 mCi 3-43.2 mCi, Intravenous, 2 TIMES DAILY PRN, doses not scheduled, Starting on Wed08/14/16 at 1129, For 2 doses Given 08/14/2016 11:36 AM LINE PREP COOK 3.54 mCi documented in this encounter Care Teams Hat Trimmer Relationship Specialty Start Date End Date Alfred Rios MD PCP - General Family Practice 04/18/15 Alfred Rios MD PCP - Assigned PCP 03/22/15 09/13/18 [id number] CARL LAWLER [id number] Alfred Rios MD Assigned PCP 03/22/15 06/01/20 [id number] CARL LAWLER [id number] documented as of this encounter
--- OUTSIDE RECORDS SUMMARY | 2022-04-28 22:55 | XMS_ITS | Encounter Summary ---
:1950 Author Organization [place] Address [address] [facility] [place] [address] Care Team Providers Name Role Phone Alfred Rios MD Primary Care Provider [phone] Alfred Rios MD Unavailable Alfred Rios MD Unavailable Reason for Visit Reason Onset Date Comments Appointment 07/27/2016 fasting labs Encounter Details Date Type Department Care Team Description 07/26/2016 Telephone [facility] Alfred Riosmi nt ([facility]) [address] [facility] [address] [place], [place] [phone] Social History Tobacco Use Types Packs/Day Years Used Date Smoking Tobacco: Former Cigarettes 1 35 Quit : 10/22/1999 Smokeless Tobacco: Never Alcohol Use Standard Drinks/Week Comments Yes 0 (1 standard drink = 0.6 oz pure alcoho l) 1-2 beers daily Sex Assigned at Date Recorded Male 12/31/2020 1:31 PM CDT documented as of this encounter Miscellaneous Notes Telephone Encounter - Radha Duckworth - 07/31/2016 9:00 AM NETWORK PROJECT MANAGER Spoke with pt, he will have the blood work drawn at 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 Miky Duckworth Meatcutter ORK PROJECT MANAGER Telephone Encounter - Deepa Elder I - 07/27/2016 4:19 PM CST Called and left patient a VM to call and schedule a fasting lab only appointment per Dr Rios. Deepa Higginbotham/Meatcutter ORK PROJECT MANAGER Telephone Encounter - Alfred Rios MD - 07/26/2016 11:21 AM NETWORK PROJECT MANAGER Please call to schedule fasting lab appt. Alfred Rios MD ORK PROJECT MANAGER documented in this encounter Plan of Treatment Not on filedocumented as of this encounter Visit Diagnoses Not on filedocumented in this encounter Care Teams Airline Hostess Relationship Specialty Start Date End Date Alfred Rios MD PCP - General Family Practice 04/18/15 Alfred Rios MD PCP - Assigned PCP 03/22/15 09/13/18 [id number] CARL LAWLER [id number] Alfred Rios MD Assigned PCP 03/22/15 06/01/20 [id number] CARL LAWLER [id number] documented as of this encounter
--- OUTSIDE RECORDS SUMMARY | 2022-04-28 22:55 | XMS_ITS | Encounter Summary ---
:1950 Author Organization [place] Address [facility] [place] [address] Care Team Providers Name Role Phone Alfred Rios MD Primary Care Provider [phone] Alfred Rios MD Unavailable Alfred Rios MD Unavailable Reason for Visit Reason Comments Dizziness Encounter Details Date Type Department Care Team Description 05/10/2018 Office Visit [facility] Alfred Rios [facility]ign [facility] [place] [address] [place] [address] left ear (Primary Dx) [facility], [address] [place] [address] [place], [place] [phone] (Wo rk) [address] [phone] Social History Tobacco Use Types Packs/Day Years [...] Sign Reading Time Taken Comments Blood Pressure 124/70 05/10/2018 4:10 PM CDT Pulse 64 05/10/2018 4:10 PM CDT Temperature 36.4 ??C (97.6 ??F) 05/10/2018 4:10 PM CDT Respiratory Rate 20 05/10/2018 4:10 PM CDT Oxygen Saturation - - Inhaled Oxygen Concentration - - Weight 76.9 kg (169 lb 8 oz) 05/10/2018 4:10 PM CDT Height - - Body Mass Index 27.36 08/28/2016 8:11 AM MATERIALS SPECIALIST documented in this encounter Progress Notes Alfred Rios MD - 05/10/2018 4:00 PM CDT HPI SUBJECTIVE: Anthony Chun is a 68 year old male who presents to clinic today for the following health issues: Dizziness Onset: x1 month ?? Description: Do you feel faint: YES Does it feel like the surroundings (bed, room) are moving: YES Unsteady/off balance: YES Have you passed out or fallen: no ?? Intensity: moderate ?? Progression of Symptoms: Worsening as far as frequency ?? Accompanying Signs & Symptoms: Heart palpitations: no Nausea, vomiting: no Weakness in arms or legs: YES- legs and arms have felt numb Fatigue: no Vision or speech changes: no Ringing in ears (Tinnitus): no Hearing Loss: no ?? History: Head trauma/concussion hx: YES- as a teen Previous similar symptoms: YES- has had vertigo before Recent bleeding history: no ?? Precipitating factors: Worse with activity or head movement: YES Any new medications (BP?): no Alcohol/drug abuse/withdrawal: no ?? Alleviating factors: Does staying in a fixed position give relief: YES Therapies Tried and outcome: None Looking up or down, rolling over in bed, sometimes after standing up, will have flash of dizziness. Resolves pretty quickly. No recent falls, head impact. No recent cold or flu sx. Notes that this is less intense than previous vertigo. Started about one month ago, has been pretty stable in that periodof time. Review of Systems Constitutional: Negative. Respiratory: Negative. Cardiovascular: Negative. Neurological: Positive for dizziness. Physical Exam Constitutional: He is oriented to person, place, and time and well-developed, well-nourished, and inno distress. No distress. HENT: Right Ear: Tympanic membrane, external ear and ear canal normal. Left Ear: Tympanic membrane, external ear and ear canal normal. Mouth/Throat: Oropharynx is clear and moist. No oropharyngeal exudate. Eyes: Conjunctivae are normal. Neck: Neck supple. Cardiovascular: Normal rate, regular rhythm and normal heart sounds. Pulmonary/Chest: Effort normal and breath sounds normal. Lymphadenopathy: He has no cervical adenopathy. Neurological: He is alert and oriented to person, place, and time. Positive Raul Hallpike L Skin: Skin is warm and dry. No rash noted. Nursing note and vitals reviewed. (H81.12) Benign paroxysmal positional vertigo of left ear (primary encounter diagnosis) Comment: taught and guided through [place] for L x2, printed handout provided Plan: eppley maneuver x3 daily until resolved. Consider vestibular therapy if not improving. RTC in 2w Alfred Rios MD documented in this encounter Plan of Treatment Not on filedocumented as of this encounter Visit Diagnoses Diagnosis Benign paroxysmal positional vertigo of left ear - Primary documented in this encounter Care Teams Header Operator Relationship Specialty Start Date End Date Alfred Rios MD PCP - General Family Practice 04/18/15 Alfred Rios MD PCP - Assigned PCP 03/22/15 09/13/18 [id number] CARL LAWLER [id number] Alfred Rios MD Assigned PCP 03/22/15 06/01/20 [id number] CARL LAWLER [id number] documented as of this encounter
--- OUTSIDE RECORDS SUMMARY | 2022-04-28 22:55 | XMS_ITS | Encounter Summary ---
:1950 Author Organization [place] Address [facility] [place] [address] Care Team Providers Name Role Phone Alfred Rios MD Primary Care Provider [phone] Alfred Rios MD Unavailable Alfred Rios MD Unavailable Reason for Visit Reason Onset Date Comments Erroneous encounter-disregard 08/13/2017 atorvastat in and metoprolol Encounter Details Date Type Department Care Team Description 08/13/2017 Replaced By [facility] Alfred Rios [facility] Yvonne Peterson MD encounter-disregard [facility], [address] [place] [address] (atorvastatin and [address] [place] [address] metoprolol ) [place] [phone] (Wo rk) [address] [phone] Social History Tobacco Use Types Packs/Day Years Used Date Smoking Tobacco: Former Cigarettes 1 35 Quit : 10/22/1999 Smokeless Tobacco: Never Alcohol Use Standard Drinks/Week Comments Yes 0 (1 standard drink = 0.6 oz pure alcoho l) 1-2 beers daily Sex Assigned at Date Recorded Male 12/31/2020 1:31 PM CDT documented as of this encounter Miscellaneous Notes Telephone Encounter - Romina Baltazar - 08/13/2017 8:22 AM CST 3 month Supply with 3 RF sent 12/8/17 for both. Fax sent to pharm informing above. Please disregard request. OUMAR Olivo August 13, 2017 8:24 AM APIN FISHER documented in this encounter Plan of Treatment Not on filedocumented as of this encounter Visit Diagnoses Diagnosis Hyperlipidemia with target LDL less than 100 Other and unspecified hyperlipidemia S/P CABG (coronary artery bypass graft) Postsurgical aortocoronary bypass status documented in this encounter Care Teams Stud Dairy Cattle Farmer Relationship Specialty Start Date End Date Alfred Rios MD PCP - General Family Practice 04/18/15 Alfred Rios MD PCP - Assigned PCP 03/22/15 09/13/18 [id number] CARL LAWLER [id number] Alfred Rios MD Assigned PCP 03/22/15 06/01/20 [id number] CARL LAWLER [id number] documented as of this encounter
--- OUTSIDE RECORDS SUMMARY | 2022-04-28 22:55 | XMS_ITS | Encounter Summary ---
:1950 Author Organization [place] Address [facility] [place] [address] Care Team Providers Name Role Phone Alfred Rios MD Primary Care Provider [phone] Alfred Rios MD Unavailable Alfred Rios MD Unavailable Encounter Details Date Type Department Care Team Description 09/12/2018 Travel Social History Tobacco Use Types Packs/Day [...] on filedocumented in this encounter Care Teams Science Instructor Relationship Specialty Start Date End Date Alfred Rios MD PCP - General Family Practice 04/18/15 Alfred Rios MD PCP - Assigned PCP 03/22/15 09/13/18 [id number] CARL LAWLER [id number] Alfred Rios MD Assigned PCP 03/22/15 06/01/20 [id number] CARL LAWLER [id number] documented as of this encounter
--- OUTSIDE RECORDS SUMMARY | 2022-04-28 22:55 | XMS_ITS | Encounter Summary ---
:1950 Author Organization [place] Address [address] [place] [address]. [place] [address] Care Team Providers Name Role Phone Yi Morales MD Primary Care Provider [phone] Yi Morales MD Unavailable Yi Morales MD Unavailable Encounter Details Date Type Department Care Team Description 06/25/2017 Orders Only [facility] Yi Morales Exercise intolerance (Primary Dx); Clinic Yvonne Peterson MD Peripheral vascular disease (H) [place] [id number] [place] [address], [address] [place] [address] [place], [place] [phone] (Wo rk) [address] [phone] Social History Tobacco Use Types Packs/Day Years Used Date Smoking Tobacco: Former Cigarettes 1 35 Quit : 10/22/1999 Smokeless Tobacco: Never Alcohol Use Standard Drinks/Week Comments Yes 0 (1 standard drink = 0.6 oz pure alcoho l) 1-2 beers daily Sex Assigned at Date Recorded Male 12/31/2020 1:31 PM CDT documented as of this encounter Progress Notes Yi Morales MD - 06/25/2017 6:59 AM CST Altering order. Yi Morales MD CTOR NETWORK DEVELOPMENT documented in this encounter Plan of Treatment Not on filedocumented as of this encounter Results US MANSOOR Doppler with Exercise Bilateral (07/02/2017 11:42 AM DIRECTOR NETWORK DEVELOPMENT) Anatomical Region Laterality Modality Leg, Ankle, Foot Ultrasound Specimen (Source) Anatomical Location Collection Method / Collectio n Time Received Time / Laterality Volume Impressions 07/02/2017 1:37 PM DIRECTOR NETWORK DEVELOPMENT IMPRESSION: Resting and post exercise MANSOOR bilateral ly >1.4 indicating non compressible arteries. FINDINGS: Right: Arm: 131 mmHg PT at ankle: 186 mmHg DP at foot: 149 mmHg ?? MANSOOR: 1.42 Left: Arm: 126 mmHg PT at ankle: 185 mmHg DP at foot: 136 mmHg MANSOOR: 1.41 Resting arterial waveforms in bilateral tibialis posterior arteries multiphasic. EXERCISE STUDY: The patient was exercise d on a treadmill at 1.5 mph at a 10% grade for 5 minutes. Patient was c omplaining of bilateral lateral thigh numbness at rest that subs ided with exercise on the left side Right Leg: Post exercise, right ankle pressure incr eased to 228 mmHg, with MANSOOR 1.7, indicating noncompressible artery. Left Leg: Post exercise, left ankle pressure incre ased to 235 mmHg, with MANSOOR 1.75, indicating noncompressible artery. New MANSOOR Diagnostic Criteria: ??> 1.4: Non compressible ??1.00 - 1.40: Normal ??0.91 - 0.99: Borderline ??At or below 0.90: Abnormal Guideline criteria published in Circulat ion 2011; 124: 1979-3641. Traditional MANSOOR Diagnostic Criteria: ??>/=1.3 - non compressible vessels ??1.00 ??-1.29 - Normal ??0.91 - 0.99 - Borderline ??0.41 - 0.90 - Mild to moderate PAD ??0.00 - 0.40 - Severe PAD Interpretation of Post-exercise ABIs: 1. Absolute drop of 0.15 in MANSOOR. 2. Pressure drop of > 20%. ?? ITZEL THOMASON MD Narrative 07/02/2017 1:37 PM DIRECTOR NETWORK DEVELOPMENT EXAM: Bilateral lower extremity MANSOOR with exercise dated 07/02/2017 11:42 AM COMPARISON STUDY: none CLINICAL HISTORY: ; Peripheral vascular disease (H); Exercise intolerance ORDERING CLINICIAN: YI MORALES Procedure Note Itzel Thomason MD - 07/02/2017Formattin g of this note might be different from the original. EXAM: Bilateral lower extremity MANSOOR with exercise dated 07/02/2017 11:42 AM COMPARISON STUDY: none CLINICAL HISTORY: ; Peripheral vascular disease (H); Exercise intolerance ORDERING CLINICIAN: YI MORALES IMPRESSION: Resting and post exercise MANSOOR bilateral ly >1.4 indicating non compressible arteries. FINDINGS: Right: Arm: 131 mmHg PT at ankle: 186 mmHg DP at foot: 149 mmHg MANSOOR: 1.42 Left: Arm: 126 mmHg PT at ankle: 185 mmHg DP at foot: 136 mmHg MANSOOR: 1.41 Resting arterial waveforms in bilateral tibialis posterior arteries multiphasic. EXERCISE STUDY: The patient was exercise d on a treadmill at 1.5 mph at a 10% grade for 5 minutes. Patient was c omplaining of bilateral lateral thigh numbness at rest that subs ided with exercise on the left side Right Leg: Post exercise, right ankle pressure incr eased to 228 mmHg, with MANSOOR 1.7, indicating noncompressible artery. Left Leg: Post exercise, left ankle pressure incre ased to 235 mmHg, with MANSOOR 1.75, indicating noncompressible artery. New MANSOOR Diagnostic Criteria: > 1.4: Non compressible 1.00 - 1.40: Normal 0.91 - 0.99: Borderline At or below 0.90: Abnormal Guideline criteria published in Circulat ion 2011; 124: 3642-9616. Traditional MANSOOR Diagnostic Criteria: >/=1.3 - non compressible vessels 1.00 -1.29 - Normal 0.91 - 0.99 - Borderline 0.41 - 0.90 - Mild to moderate PAD 0.00 - 0.40 - Severe PAD Interpretation of Post-exercise ABIs: 1. Absolute drop of 0.15 in MANSOOR. 2. Pressure drop of > 20%. ITZEL THOMASON MD Yi Morales MD IM US ORDERABLES documented in this encounter Visit Diagnoses Diagnosis Exercise intolerance - Primary Other general symptoms Peripheral vascular disease (H) Peripheral vascular disease, unspecified Peripheral vascular disease (H) Peripheral vascular disease, unspecified Exercise intolerance Other general symptoms documented in this encounter Care Teams Lighter Captain Relationship Specialty Start Date End Date Yi Morales MD PCP - General Family Practice 04/18/15 Yi Morales MD PCP - Assigned PCP 03/22/15 09/13/18 [id number] CARL LAWLER [id number] Yi Morales MD Assigned PCP 03/22/15 06/01/20 [id number] CARL LAWLER [id number] documented as of this encounter
--- OUTSIDE RECORDS SUMMARY | 2022-04-28 22:55 | XMS_ITS | Encounter Summary ---
:1950 Author Organization [place] Address [address] [place] [address] Care Team Providers Name Role Phone Alfred Rios MD Primary Care Provider [phone] Alfred Rios MD Unavailable Alfred Rios MD Unavailable Reason for Referral - Closed Specialty Diagnoses / Procedures Referred By Contact Refer red To Contact Diagnoses Chronic ischemic heart disease S/P CABG (coronary artery bypass graft) Chest pain, unspecified type Alton Rm MD [facility] [address] [place] [id number] Referral ID Status Reason Start Date Expiration Date Visits Requ ested Visits Authorized [id number] Closed 08/28/2017 08/28/2018 1 1 AULIC AUTO JACK MECHANIC Reason for Visit Reason Comments Results 1 month f/u to review nuc st ress test done 08/14/16 - Closed Specialty Diagnoses / Procedures Referred By Contact Refer red To Contact Diagnoses Chronic ischemic heart disease S/P CABG (coronary artery bypass graft) Chest pain, unspecified type Alton Rm MD [facility] [address] [place] [id number] Referral ID Status Reason Start Date Expiration Date Visits Requ ested Visits Authorized [id number] Closed 08/28/2016 08/28/2017 1 1 Encounter Details Date Type Department Care Team Description 08/28/2016 Office Visit Alton Jarrell, [place] [facility] hemic heart disease; [facility] MD S/P CABG (coronary artery bypass graft); [facility] HEART AND Chest pain, unspecified type [address] [facility] VASCULAR [address] [place], [place] [address] [place], [place] [phone] [address] Social History Tobacco Use Types Packs/Day Years [...] Sign Reading Time Taken Comments Blood Pressure 118/74 08/28/2016 8:11 AM HYDRAULIC AUTO JACK MECHANIC Pulse 60 08/28/2016 8:11 AM HYDRAULIC AUTO JACK MECHANIC Temperature - - Respiratory Rate - - Oxygen Saturation - - Inhaled Oxygen Concentration - - Weight 76.3 kg (168 lb 4.8 oz) 08/28/2016 8:11 AM HYDRAULIC AUTO JACK MECHANIC Height 167.6 cm (5' 6) 08/28/2016 8:11 AM HYDRAULIC AUTO JACK MECHANIC Body Mass Index 27.16 08/28/2016 8:11 AM HYDRAULIC AUTO JACK MECHANIC documented in this encounter Progress Notes Alton Rm MD - 08/28/2016 8:50 AM CST HISTORY OF PRESENT ILLNESS: Mr. Billingsley is a pleasant 66-year-old gentleman with a history of coronaryartery disease, status post robotic-assisted coronary artery bypass surgery with a RIVAS to the LAD in [address] Celis for a known left main and ostial LAD stenosis along with moderate disease in theright coronary artery which was not revascularized. I saw the patient in annual followup in July and he was having heaviness on his chest with physical exertion out in the cold. I set him up for a stress test and he returns in close clinical followup. The patient states that the chest heaviness with exertion has resolved now that the weather has improved. He finds that it does not occur when the weather is warmer and it only occurs when the weather is cold. It is not like his prior anginal symptoms. The patient underwent a stress test on 08/14/2016. This was an exercise nuclear stress test which showed no evidence for myocardial ischemia on the perfusion images. The ECG did not show significant STsegment depression. The ejection fraction was calculated at 54%. Again, the patient states that his chest pain has resolved now that the weather has warmed. The patient does have a [id number] history of smoking. He does not carry a formal diagnosis of COPD or asthma, although he was given an inhaler in the past. He has no other cardiovascular complaints at this time such as shortness of breath, chest pain, dyspnea with exertion, orthopnea, paroxysmal nocturnal dyspnea, syncope, presyncope or palpitations. Please see my separate note with his full physical examination. IMPRESSION AND PLAN: 1. Chest heaviness - this appears to likely be related to underlying lung disease and I have asked him to follow back with his family doctor for this. 2. Coronary artery disease - the patient's nuclear stress test did not show evidence for myocardial ischemia. I will continue his aspirin 81 mg daily and atorvastatin 40 mg daily unchanged for secondary prevention. 3. Peripheral vascular disease - the patient has known carotid stenosis for which he follows with Dr. Cadet in [facility]. 4. Dyslipidemia - the patient's fasting lipids for this visit show an LDL of 59. I will continue theatorvastatin 40 mg daily, unchanged. Mr. Billingsley is clinically stable and I will plan to see him back in routine clinic followup in 1 year. ALTON RM MD MT: LR Name: RUSSEL BILLINGSLEY MRN: [id number] Account: [id number] : 1950 Service Date: 08/28/2016 Document: [id number] AULIC AUTO JACK MECHANIC Alton Rm MD - 08/28/2016 8:15 AM CST HPI and Plan: See dictation Orders Placed This Encounter Procedures ??? Follow-Up with Multiple Spindle Router Operator Orders Placed This Encounter Medications ??? Dextromethorphan-Guaifenesin (ROBITUSSIN COUGH+CHEST CAROL DM PO) Sig: Take by mouth as needed There are no discontinued medications. Encounter Diagnoses Name Primary? Chronic ischemic heart disease ??? S/P CABG (coronary artery bypass graft) ??? Chest pain, unspecified type CURRENT MEDICATIONS: Current Outpatient Prescriptions Medication Sig Dispense Refill ??? Dextromethorphan-Guaifenesin (ROBITUSSIN COUGH+CHEST CAROL DM PO) Take by mouth as needed ??? metoprolol (LOPRESSOR) 25 MG tablet Take [...] HISTORY: Past Medical History Diagnosis Date ??? Cardiac ischemia 04/24/2015 Positive stress test 04/18/15 Alfred Rios MD ??? Carotid artery stenosis Right internal ??? Coronary artery disease ??? CRF (chronic renal failure), stage 2 (mild) 04/17/2015 ??? Family history of DE (myocardial infarction) 04/16/2015 ??? Hyperlipidemia ??? Hypertension ??? Other chronic pain lower back, rt butock, right leg 2/2 sciatica pain ??? S/P CABG (coronary artery bypass graft) 05/25/2015 PAST SURGICAL HISTORY: Past Surgical History Procedure [...] HISTORY: Social History Social History ??? Marital status: Spouse name: N/A ??? Number of children: N/A ??? Years of education: N/A Social History Main Topics ??? Smoking status: Former Smoker Packs/day: 1.00 Years: 35.00 Types: Cigarettes Quit date: 10/22/1999 ??? Smokeless tobacco: Never Used ??? Alcohol use 0.0 oz/week 0 Standard drinks or equivalent per week Comment: 1-2 beers daily ??? Drug use: No ??? Sexual activity: No Other Topics Concern ??? Parent/Sibling W/ Cabg, Mi Or Angioplasty Before 65f 55m? No ??? Caffeine Concern No ??? Special Diet No ??? Exercise No Elliptycal , weights, cariac rehab Social History Narrative Review of Systems: Skin: Negative Eyes: Positive for glasses ENT: Positive for hearing loss;nasal congestion;sinus trouble;postnasal drainage right ear Respiratory: Positive for cough cough has decreased Cardiovascular: dizziness;Positive for dizzy when coming up from bending over and getting out of bed Gastroenterology: Negative Genitourinary: Negative Musculoskeletal: Positive for nocturnal cramping occas leg cramps Neurologic: Negative rare headaches Psychiatric: Negative Heme/Lymph/Imm: Negative Endocrine: Negative Physical Exam: Vitals: BP 118/74 (BP Location: Right arm, Patient Position: Right side, Cuff Size: Adult Regular) Pulse 60 Ht 1.676 m (5' 6) Wt 76.3 kg (168 lb 4.8 oz) BMI 27.16 kg/m2 Constitutional: Skin: Head: Eyes: ENT: Neck: Chest: Cardiac: Abdomen: Vascular: Extremities and Back: Neurological: CC Alton Rm MD [facility] [address] [place] [address] AULIC AUTO JACK MECHANIC documented in this encounter Plan of Treatment Scheduled Referrals Name Type Priority Associated Diagnoses Order S chedule Follow-Up with Referral Routine Chronic ischemic heart Exp ected: 08/28/2017 Multiple Spindle Router Operator disease (Approximate), S/P CABG (coronary Expires: 01/10/2018 artery bypass gr aft) Chest pain, unspecified type documented as of this encounter Visit Diagnoses Diagnosis Chronic ischemic heart disease Chronic ischemic heart disease, unspecif ied S/P CABG (coronary artery bypass graft) Postsurgical aortocoronary bypass status Chest pain, unspecified type documented in this encounter Care Teams Pressroom Supervisor Relationship Specialty Start Date End Date Alfred Rios MD PCP - General Family Practice 04/18/15 Alfred Rios MD PCP - Assigned PCP 03/22/15 09/13/18 [id number] CARL LAWLER [id number] Alfred Rios MD Assigned PCP 03/22/15 06/01/20 [id number] CARL LAWLER [id number] documented as of this encounter
--- OUTSIDE RECORDS SUMMARY | 2022-04-28 22:55 | XMS_ITS | Encounter Summary ---
:1950 Author Organization [place] Address [address] [facility] [address] Care Team Providers Name Role Phone Alfred Rios MD Primary Care Provider [phone] Alfred Rios MD Unavailable Alfred Rios MD Unavailable Reason for Visit Reason Comments RECHECK Bilateral carotid (12:15 [facility] ; 1:00 TJ) 1 yr follow up, hx of bilateral carotid stenosis Encounter Details Date Type Department Care Team Description 05/19/2016 Office Visit [facility] Murali Cadet Stenosis of right Vascular Clinic Jeremi Bernal MD carotid artery without [address] infa rction (Primary [address] 340 Dx) [place] [phone] [place] [id number] Social History Tobacco Use Types Packs/Day Years [...] Sign Reading Time Taken Comments Blood Pressure 129/75 05/19/2016 12:58 PM HUMAN RESOURCES SERVICES SPECIALIST left arm Pulse 57 05/19/2016 12:58 PM HUMAN RESOURCES SERVICES SPECIALIST Temperature - - Respiratory Rate - - Oxygen Saturation - - Inhaled Oxygen Concentration - - Weight - - Height - - Body Mass Index - - documented in this encounter Progress Notes Murali Cadet MD - 05/19/2016 1:12 PM CST May 19, 2016 Alfred Rios MD [facility] [address] [place] [address] Rios: I again saw Russel Billingsley in the [facility]. He is a 66-year-old gentleman who I have followed for an asymptomatic right carotid stenosis. He has no prior history of stroke or TIA, but he does have a significant familial history for stroke. At his last visit 1 year ago he was on the verge of undergoing cardiac bypass surgery. That procedure went incredibly well and Pipo has returned to work. He has good energy and he denies any type of symptoms suggestive of stroke or TIA. He does occasionally note some dizziness when he bends over to pick things pick things up and this seems probably orthostatic in nature, related to his beta brisa. PHYSICAL EXAMINATION: On exam today, he is a fit-appearing individual in no acute distress. Blood pressure was 129/75 with a pulse of 57. His neurologic exam is completely nonfocal. Review of today's ultrasound shows a peak systolic velocity on the right of 166 with an ICA to CCA ratio of 1.6. This is consistent with a 50-79% stenosis certainly at the lower end of that spectrum and in fact his velocities are improved compared to 1 year ago. He had antegrade flow in the right vertebral artery. He had minimal left-sided disease. IMPRESSION: Stable asymptomatic approximately 50% right internal carotid stenosis. RECOMMENDATIONS: He will continue his medical regimen which includes a daily aspirin. I will see himback in one year for a repeat right carotid ultrasound as part of my surveillance protocol. I appreciate the opportunity to participate in his care. Please feel free to contact me should you have questions or concerns. Sincerely, MURALI CADET MD MT: CD Name: RUSSEL BILLINGSLEY MRN: [id number] Account: [id number] : 1950 Visit Date: 05/19/2016 Document: [id number] cc: Alfred Rios MD HPI ROS Physical Exam N RESOURCES SERVICES SPECIALIST Murali Cadet MD - 05/19/2016 1:07 PM CST See dictation. Please route or send letter to: Primary Care Provider (PCP) N RESOURCES SERVICES SPECIALIST documented in this encounter Nursing Notes Sherri Balderrama MA - 05/19/2016 1:01 PM CST Chief Complaint Patient presents with ??? RECHECK Bilateral carotid (12:15 [facility]; 1:00 TJG) 1 yr follow up, hx of bilateral carotid stenosis Initial BP 129/75 mmHg Pulse 57 Estimated body mass index is 26.74 kg/(m^2) as calculated from thefollowing: Height as of 08/01/15: 5' 5.98 (1.676 m). Weight as of 08/01/15: 165 lb 9.6 oz (75.116 kg). BP completed using cuff size: large left arm Face to face nursing time: 8 minutes Sherri Balderrama MA N RESOURCES SERVICES SPECIALIST documented in this encounter Plan of Treatment Not on filedocumented as of this encounter Visit Diagnoses Diagnosis Stenosis of right carotid artery without infarction - Primary documented in this encounter Care Teams Commercial Lending Assistant Relationship Specialty Start Date End Date Alfred Rios MD PCP - General Family Practice 04/18/15 Alfred Rios MD PCP - Assigned PCP 03/22/15 09/13/18 [id number] [place] [id number] Alfred Rios MD Assigned PCP 03/22/15 06/01/20 [id number] [place] [id number] documented as of this encounter
--- OUTSIDE RECORDS SUMMARY | 2022-04-28 22:55 | XMS_ITS | Encounter Summary ---
:1950 Author Organization [place] Address [address] [facility] [place] [address] Care Team Providers Name Role Phone Alfred Rios MD Primary Care Provider [phone] Alfred Rios MD Unavailable Alfred Rios MD Unavailable Reason for Referral DEBBI Physical Therapy - Closed Specialty Diagnoses / Procedures Referred By Contact Refer red To Contact Diagnoses Post-traumatic [place] [address] [place] [address] Referral ID Status Reason Start Date Expiration Date Visits Requ ested Visits Authorized [id number] Closed 09/12/2018 09/12/2019 1 1 SCHOOL SUSPENSION AIDE Reason for Visit Reason Comments Medicare Visit Blood Draw LABS. Patient is fasting Encounter Details Date Type Department Care Team Description 09/12/2018 Office Visit [facility] Alfred Gooden Medicare annual wellness visit, subsequent (Primary Dx); Clinic Yvonne Peterson MD Hyperlipidemia with target LDL less than 100; [place] [id number] [address] Essential hypertension, benign; Road, [address] [place] Facet arthritis of lumbar re gion (H); [place] [address] Coronary artery disease involving josue ry bypass graft of barrow heart without angina pectoris; [id number] Mild intermittent asthma wit hout complication; Post-traumatic osteoarthritis of left kn ee Social History Tobacco Use Types Packs/Day Years [...] Sign Reading Time Taken Comments Blood Pressure 130/80 09/12/2018 8:08 AM IN SCHOOL SUSPENSION AIDE Pulse 64 09/12/2018 8:08 AM IN SCHOOL SUSPENSION AIDE Temperature 36.4 ??C (97.5 ??F) 09/12/2018 8:08 AM IN SCHOOL SUSPENSION AIDE Respiratory Rate 16 09/12/2018 8:08 AM IN SCHOOL SUSPENSION AIDE Oxygen Saturation - - Inhaled Oxygen Concentration - - Weight 76.7 kg (169 lb 1.6 oz) 09/12/2018 8:08 AM IN SCHOOL SUSPENSION AIDE Height 169.5 cm (5' 6.75) 09/12/2018 8:08 AM IN SCHOOL SUSPENSION AIDE Body Mass Index 26.68 09/12/2018 8:08 AM IN SCHOOL SUSPENSION AIDE documented in this encounter Patient Instructions Patient InstructionsJaclyn Varghese CMA - 09/12/2018 8:00 AM CST Services Typically covered by Medicare Recommended Completed Vaccines ?? Pneumonoccol ?? Influenza ?? Hepatitis B (if medium/high risk) ?? Once for patients after age 65 ?? Yearly Medium/high risk factors: ??? End Stage Kidney Disease ??? Hemophiliacs who received Factor XIII or IX concentrates ??? Clients of institutions for developmentally disabled ??? Persons who live in same house as a Hepatitis B carrier ??? Homosexual men ??? Illicit injectable drug users ??? Health care workers Mammogram Covered: One-time screen between age 35-39, annually for age 40+ Pap and Pelvic Exam Covered: Annually if ???high risk,??? or childbearing age with abnormal Pap in last 3 years. Q24 months for all other women Prostate Cancer Screening ?? Digital rectal exam ?? PSA Covered: Annually for all men > age 50 Corolrectal Cancer Screening Screening colonoscopy every 10 years, more often for high risk patients Diabetes Self-Management Training Requires referral by treating physician for patient with diabetes Diabetes Screening ?? Fasting blood sugar or glucose tolerance test Once yearly, twice yearly if prediabetic Cardiovascular Screening Blood Tests ?? Total Cholesterol ?? HDL ?? Triglycerides Every 5 years Medical Nutrition Therapy for Diabetes or Renal Disease Requires referral by treating physician for patient with diabetes or kidney disease Glaucoma Screening Annually for patients with one of the following risk factors: ??? Diabetes Mellitus ??? Family history of Glaucoma ??? -Stateless age 50 and over ??? -Stateless age 65 and over Bone Mass Measurement Every 24 months if one of the following risk factors: ??? Estrogen deficiency ??? Vertebral abnormalities on x-ray indicative of Osteoporosis, Osteopenia, or Vertebral fracture ? ? Receiving/expected to receive the equivalent of at least 5 mg of Prednisone per day for > 3 months ??? Hyperparathyroidism ??? Patient being monitored for response to Osteoporosis Therapy One-time AAA screen Must be ordered as part of Medicare IPPE ??? Any patient with a family history of AAA ??? Males Age 65-75, with history of smoking at least 100 cigarettes in lifetime Smoking Cessation Counseling Beneficiaries who use tobacco are eligible to receive 2 cessation attempts per year; each attempt includes maximum of 4 sessions HIV Screening Annually for beneficiaries at increased risk: Increased risk for HIV infection is defined in the ???National Coverage Determinations (NCD) Manual,?? Publication 100-03 Sections 190.14 (diagnostic) and 210.7 (screening). See http://www.cms.gov/man uals/downloads/cbo059m4_Sowa2.pdf and http://www.cms.gov/manuals/downloads/njw448d2_Czfo4.pdf on theInternet. Three times per for beneficiaries who are . Future Annual Wellness Visit Annually, for all beneficiaries. SCHOOL SUSPENSION AIDE documented in this encounter Progress Notes Alfred Rios MD - 09/12/2018 8:00 AM CST SUBJECTIVE: Anthony Chun is a 68 year old male who presents for Preventive Visit. Are you in the first 12 months of your Medicare coverage? No Annual Wellness Visit In general, how would you rate your overall health? Good Frequency of exercise: 6-7 days/week Duration of exercise: Greater than 60 minutes Do you usually eat at least 4 servings of fruit and vegetables a day, include whole grains & fiber and avoid regularly eating high fat or junk foods? No Taking medications regularly: Yes Medication side effects: None Ability to successfully perform activities of daily living: No assistance needed Home Safety: No safety concerns identified Hearing Impairment: Difficulty understanding soft or whispered speech In the past 6 months, have you been bothered by leaking of urine? No In general, how would you rate your overall mental or emotional health? Good PHQ-2 Total Score: 0 Additional concerns today: Yes Do you feel safe in your environment? YES Do you have a Health Care Directive? Yes: Advance Directive has been received and scanned. Fall risk Fallen 2 or more times in the past year?: No Any fall with injury in the past year?: No Cognitive Screening 1) Repeat 3 items (Leader, Season, Table) 2) Clock draw: NORMAL 3) 3 item recall: Recalls 2 objects Results: NORMAL clock, 1-2 items recalled: COGNITIVE IMPAIRMENT LESS LIKELY Mini-CogTM Copyright S Moe. Licensed by the author for use in [facility]; reprintedwith permission (arlet@[facility]). All rights reserved. Do you have sleep apnea, excessive snoring or daytime drowsiness?: yes Reviewed and updated as needed this visit by clinical staff Tobacco Allergies Meds Problems Med Hx Surg Hx Fam Hx Soc Hx Reviewed and updated as needed this visit by Provider Social History Tobacco Use ??? Smoking status: Former Smoker Packs/day: 1.00 Years: 35.00 Pack years: 35.00 Types: Cigarettes Last attempt to quit: 10/22/1999 Years since quittin.9 ??? Smokeless tobacco: Never Used Substance Use Topics ??? Alcohol use: Yes Alcohol/week: 0.0 oz Comment: 1-2 beers daily Alcohol Use 09/12/2018 If you drink alcohol do you typically have greater than 3 drinks per day OR greater than 7 drinks per week? No No flowsheet data found. Current providers sharing in care for this patient include: Patient Care Team: Alfred Rios MD as PCP - General (Family Practice) Alfred Rios MD as PCP - Assigned PCP The following health maintenance items are reviewed in Epic and correct as of today: Health Maintenance Topic Date Due ??? ZOSTER IMMUNIZATION (1 of 2) 02/08/2000 ??? MEDICARE ANNUAL WELLNESS VISIT 06/18/2018 ??? FALL RISK ASSESSMENT 06/18/2018 ??? LIPID MONITORING Q1 YEAR 06/18/2018 ??? PHQ-2 Q1 YR 06/18/2018 ??? ADVANCE DIRECTIVE PLANNING Q5 YRS 04/16/2020 ??? DTAP/TDAP/TD IMMUNIZATION (2 - Td) 07/12/2021 ??? COLON CANCER SCREEN (SYSTEM ASSIGNED) 07/24/2026 ??? PNEUMOCOCCAL IMMUNIZATION 65+ LOW/MEDIUM RISK Completed ??? AORTIC ANEURYSM SCREENING (SYSTEM ASSIGNED) Completed ??? HEPATITIS C SCREENING Completed ??? INFLUENZA VACCINE Addressed ??? IPV IMMUNIZATION Aged Out ??? MENINGITIS IMMUNIZATION Aged Out Notes some intermittent heaviness in chest. Brother and sister have intermittent asthma. He has had inhaler in the past and found it helpful. Cold, humidity are triggers. Stopped smoking in 1999. Having L knee pain, seems less flexible. Notes especially going up stairs. Has been an issue for forthe last three months. Has had surgery in both knees for torn menisci. Review of Systems Constitutional: Negative for chills and fever. HENT: Positive for hearing loss. Negative for congestion, ear pain and sore throat. Eyes: Negative for pain and visual disturbance. Respiratory: Positive for chest tightness. Negative for cough and shortness of breath. Cardiovascular: Negative for chest pain, palpitations and peripheral edema. Gastrointestinal: Negative for abdominal pain, constipation, diarrhea, heartburn, hematochezia and nausea. Genitourinary: Positive for impotence. Negative for discharge, dysuria, frequency, genital sores, hematuria and urgency. Musculoskeletal: Positive for arthralgias. Negative for joint swelling and myalgias. Skin: Negative for rash. Neurological: Negative for dizziness, weakness, headaches and paresthesias. Psychiatric/Behavioral: Negative for mood changes. The patient is not nervous/anxious. OBJECTIVE: BP 130/80 (BP Location: Right arm, Patient Position: Sitting, Cuff Size: Adult Regular) Pulse 64 Temp 97.5 ??F (36.4 ??C) (Oral) Resp 16 Ht 1.695 m (5' 6.75) Wt 76.7 kg (169 lb 1.6 oz) BMI26.68 kg/m?? Estimated body mass index is 26.68 kg/m?? as calculated from the following: Height as of this encounter: 1.695 m (5' 6.75). Weight as of this encounter: 76.7 kg (169 lb 1.6 oz). Physical Exam GENERAL: healthy, alert and no distress EYES: [...] appears normal, affect normal/bright Diagnostic Test Results: none ASSESSMENT / PLAN: 1. Medicare annual wellness visit, subsequent Routine testing - Lipid panel reflex to direct LDL Fasting - Basic metabolic panel 2. Hyperlipidemia with target LDL less than 100 refill - atorvastatin (LIPITOR) 40 MG tablet; Take 1 tablet (40 mg) by mouth daily Dispense: 90 tablet; Refill: 3 3. Essential hypertension, benign refill - metoprolol tartrate (LOPRESSOR) 25 MG tablet; Take 1 tablet (25 mg) by mouth 2 times daily Dispense: 180 tablet; Refill: 1 4. Facet arthritis of lumbar region (H) Stable, not currently botherseom 5. Coronary artery disease involving coronary bypass graft of barrow heart without angina pectoris Refill, cardiology f/u tomorrow - nitroGLYcerin (NITROSTAT) 0.4 MG sublingual tablet; One tablet under the tongue every 5 minutes ifneeded for chest pain. May repeat every 5 minutes for a maximum of 3 doses in 15 minutes Dispense: 25 tablet; Refill: 3 6. Mild intermittent asthma without complication New dx, will trial inhaler - albuterol (PROAIR HFA/PROVENTIL HFA/VENTOLIN HFA) 108 (90 Base) MCG/ACT inhaler; Inhale 2 puffs into the lungs every 6 hours Dispense: 1 Inhaler; Refill: 1 - OFFICE/OUTPT VISIT,GIANNA REES III 7. Post-traumatic osteoarthritis of left knee Per history and demographic, if not improving will continue w/u - OFFICE/OUTPT VISIT,ESTLEVL III - DEBBI PT, HAND, AND CHIROPRACTIC REFERRAL; Future End of Life Planning: Patient currently has an advanced directive: Yes. Practitioner is supportive of decision. COUNSELING: Reviewed preventive health counseling, as reflected in patient instructions BP Readings from Last 1 Encounters: 09/12/18 130/80 Estimated body mass index is 26.68 kg/m?? as calculated from the following: Height as of this encounter: 1.695 m (5' 6.75). Weight as of this encounter: 76.7 kg (169 lb 1.6 oz). reports that he quit smoking about 18 years ago. His smoking use included cigarettes. He has a 35.00 pack-year smoking history. he has never used smokeless tobacco. Appropriate preventive [...] Prophylaxis Lung CA Screening Alfred Rios MD [facility] SCHOOL SUSPENSION AIDE documented in this encounter Nursing Notes Jaclyn Varghese, MELANY - 09/12/2018 8:00 AM CST Chief Complaint Patient presents with ??? Medicare Visit ??? Blood Draw LABS. Patient is fasting Initial BP 130/80 (BP Location: Right arm, Patient Position: Sitting, Cuff Size: Adult Regular) Pulse 64 Temp 97.5 ??F (36.4 ??C) (Oral) Resp 16 Ht 1.695 m (5' 6.75) Wt 76.7 kg (169 lb 1.6 oz) BMI 26.68 kg/m?? Estimated body mass index is 26.68 kg/m?? as calculated from the following: Height as of this encounter: 1.695 m (5' 6.75). Weight as of this encounter: 76.7 kg (169 lb 1.6 oz). BP completed using cuff size regular right arm Jaclyn Varghese CMA SCHOOL SUSPENSION AIDE documented in this encounter Plan of Treatment Scheduled Referrals Name Type Priority Associated Diagnoses Order S chedule DEBBI PT, HAND, AND Referral Routine Post-traumatic 1 Occurr ences CHIROPRACTIC REFERRAL osteoarthritis of l eft starting 09/12/2018 knee until 0 documented as of this encounter Procedures Procedure Name Priority Date/Time Associated Diagnosis Comme nts LIPID REFLEX TO Routine 09/12/2018 8:35 AM Medicare annual Res ults for this DIRECT LDL PANEL IN SCHOOL SUSPENSION AIDE wellness visit, procedur e are in subsequent the results section. BASIC METABOLIC Routine 09/12/2018 8:35 AM Medicare annual Res ults for this PANEL IN SCHOOL SUSPENSION AIDE wellness visit, procedure ar e in subsequent the results section. documented in this encounter Results (ABNORMAL) Basic metabolic panel (09/12/2018 8:35 AM IN SCHOOL SUSPENSION AIDE) [facility] Method Time Signature Sodium 141 133 - 144 09/13/2018 [facility] mmol/L 11:22 AM [facility] Potassium 4.7 3.4 - 5.3 09/13/2018 [facility] mmol/L 11:22 AM [facility] Chloride 108 94 - 109 09/13/2018 [facility] mmol/L 11:22 AM [facility] Carbon Dioxide 24 20 - 32 09/13/2018 [facility] mmol/L 11:35 AM [facility] Anion Gap 9 3 - 14 09/13/2018 [facility] mmol/L 11:35 AM [facility] Glucose 105 (H) 70 - 99 09/13/2018 [facility] mg/dL 11:35 AM [facility] Urea Nitrogen 21 7 - 30 09/13/2018 [facility] mg/dL 11:35 AM [facility] Creatinine 1.03 0.66 - 09/13/2018 [facility] 1.25 mg/dL 11:35 AM [facility] GFR Estimate 74 >60 09/13/2018 [place] mL/min/{1. 11:35 AM [facility] 73_m2} [facility] Comment: Non GFR Calc Starting 06/28/2018, serum creatinine ba sed estimated GFR (eGFR) will be calculated using the Chronic Kidney Dise [facility] Epidemiology Collaboration (CKD-EPI) equation. GFR Estimate If 86 >60 mL/min/{1.73_m2} 09/13/2018 11 :[address] [facility] Comment: GFR Calc Starting 06/28/2018, serum creatinine ba sed estimated GFR (eGFR) will be calculated using the Chronic Kidney Dise [facility] Epidemiology Collaboration (CKD-EPI) equation. Calcium 8.8 8.5 - 10.1 mg/dL 09/13/2018 11:[address] [facility] Specimen Anatomical Collection Method Collection Time Receive d Time (Source) Location / / Volume Laterality Blood specimen 09/12/2018 8:35 AM 019 8:36 (specimen) IN SCHOOL SUSPENSION AIDE AM IN SCHOOL SUSPENSION AIDE Alfred Rios MD LAB - BLOOD ORDERABLES Performing Organization Address City/State/ZIP Code Phon e Number [facility] [address] [place] [address] Lipid panel reflex to direct LDL Fasting (09/12/2018 8:35 AM IN SCHOOL SUSPENSION AIDE) [facility] Method Time Signature Cholesterol 135 <200 09/13/2018 [place] mg/dL 11:35 AM [facility] Triglycerides 53 <150 09/13/2018 [place] mg/dL 11:35 AM [facility] HDL Cholesterol 56 >39 mg/dL 09/13/2018 [place] 11:43 AM [facility] LDL Cholesterol 68 <100 09/13/2018 [place] Calculated mg/dL 11:43 AM [facility] Comment: Desirable: <100 mg/dl Non HDL Cholesterol 79 <130 mg/dL 09/13/2018 11:43 AM IN SCHOOL SUSPENSION AIDE [facility] Specimen Anatomical Collection Method Collection Time Receive d Time (Source) Location / / Volume Laterality Blood specimen 09/12/2018 8:35 AM 019 8:36 (specimen) IN SCHOOL SUSPENSION AIDE AM IN SCHOOL SUSPENSION AIDE Alfred Rios MD LAB - BLOOD ORDERABLES Performing Organization Address City/State/ZIP Code Phon e Number [facility] [address] [place] [address] documented in this encounter Visit Diagnoses Diagnosis Medicare annual wellness visit, subseque nt - Primary Routine general medical examination at a [facility] facility Hyperlipidemia with target LDL less than 100 Other and unspecified hyperlipidemia Essential hypertension, benign Facet arthritis of lumbar region Lumbosacral spondylosis without myelopat hy Coronary artery disease involving josue ry bypass graft of barrow heart without angina pectoris Mild intermittent asthma without complic ation Unspecified asthma Post-traumatic osteoarthritis of left kn ee Secondary localized osteoarthrosis, lowe r leg documented in this encounter Care Teams Milk Hauler Relationship Specialty Start Date End Date Alfred Rios MD PCP - General Family Practice 04/18/15 Alfred Rios MD PCP - Assigned PCP 03/22/15 09/13/18 [id number] CARL LAWLER [id number] Alfred Rios MD Assigned PCP 03/22/15 06/01/20 [id number] CARL LAWLER [id number] documented as of this encounter
--- OUTSIDE RECORDS SUMMARY | 2022-04-28 22:55 | XMS_ITS | Encounter Summary ---
:1950 Author Organization [place] Address [facility] [place] [address] Care Team Providers Name Role Phone Alfred Rios MD Primary Care Provider [phone] Alfred Rios MD Unavailable Alfred Rios MD Unavailable Encounter Details Date Type Department Care Team Description 06/11/2016 Orders Only [facility] Alfred Rios Encounter for Clinic Yvonne Peterson MD screening for Laboratory [id number] malignant neoplasm of [place], [place] [address] colon (Primary Dx) [facility], [address] [place] [address] Social History Tobacco Use Types Packs/Day Years [...] as of this encounter Visit Diagnoses Diagnosis Encounter for screening for malignant ne oplasm of colon - Primary Special screening for malignant neoplasm s, colon documented in this encounter Care Teams Dewer Relationship Specialty Start Date End Date Alfred Rios MD PCP - General Family Practice 04/18/15 Alfred Rios MD PCP - Assigned PCP 03/22/15 09/13/18 [id number] CAR[place]ER [id number] Alfred Rios MD Assigned PCP 03/22/15 06/01/20 [id number] CARL LAWLER [id number] documented as of this encounter
--- OUTSIDE RECORDS SUMMARY | 2022-04-28 22:55 | XMS_ITS | Encounter Summary ---
:1950 Author Organization [place] Address Formerly [facility] [place] [address] Care Team Providers Name Role Phone Alfred Rios MD Primary Care Provider [phone] Alfred Rios MD Unavailable Alfred Rios MD Unavailable Reason for Visit Auth/Cert Specialty Diagnoses / Procedures Referred By Contact Refer red To Contact Gastroenterology Diagnoses Screening Endoscopy Procedures COLONOSCOPY [address] [place] [address] Phone: Fax: Referral ID Status Reason Start Date Expiration Date Visits Requ ested Visits Authorized [id number] 1 1 Encounter Details Date Type Department Care Team Description 07/24/2016 Surgery [facility] Endoscopy Joi Urbano MD Colonoscopy [facility] GASTROENTEROLOGY [address] [place] [address] [place] [address] [phone] (Wo rk) Surgery Details Date/Time Status Location OR Service Patient Class Case Case Trauma Class Type Case? 07/24/16 Posted GI GI C Gastroenterology Outpatient 10:30 AM Panel 1 Procedure LRB Anes Op Region Wound Class Commen ts Colonoscopy N/A Conscious Sedation Rectum II-Clean Contami nated Colonoscopy Surgeon Surgeon Role Service Panel Joi Ludwig MD Primary Gastroenterology 1 documented in this encounter Social History Tobacco Use Types Packs/Day Years [...] Sign Reading Time Taken Comments Blood Pressure - - Pulse - - Temperature - - Respiratory Rate - - Oxygen Saturation - - Inhaled Oxygen Concentration - - Weight 72.6 kg (160 lb) 07/24/2016 10:46 AM TRASH TRUCK DRIVER Height 167.6 cm (5' 6) 07/24/2016 10:46 AM TRASH TRUCK DRIVER Body Mass Index 25.82 07/24/2016 10:46 AM TRASH TRUCK DRIVER documented in this encounter Discharge Instructions AttachmentsThe following attachments cannot be sent through Care Everywhere. HEMORRHOIDS (ROMANIAN)documented in this encounter Medications at Time of [...] 15 minutes documented as of this encounter Procedure Notes Joi Ludwig MD - 07/24/2016 11:18 AM CST PRE-PROCEDURE H&P CHIEF COMPLAINT / REASON FOR PROCEDURE: screening PERTINENT HISTORY : Past Medical History Diagnosis Date ??? Hypertension ??? Hyperlipidemia ??? Coronary artery disease ??? Other chronic pain lower back, rt butock, right leg 2/2 sciatica pain ??? Carotid artery stenosis Right internal Past Surgical History Procedure Laterality Date ??? Rotator cuff repair rt/lt Right 2009 ??? Arthroscopy knee rt/lt Bilateral 1989 ??? Achilles release Left 2009 ??? Septoplasty 1977 ??? Vasectomy 1979 ??? Coronary angiography adult order ??? Davinci bypass artery coronary N/A 05/22/2015 Procedure: DAVINCI BYPASS ARTERY CORONARY; Surgeon: Fede Celis MD; Location: [facility] OR ??? Coronary artery bypass 05/22/2015 RIVAS to LAD Bleeding tendencies: No Relevant Family History: NONE Relevant Social History: NONE A relevant review of systems was performed and was negative ALLERGIES/SENSITIVITIES: Allergies Allergen Reactions ??? Nickel Rash CURRENT MEDICATIONS: No current outpatient prescriptions on file. PRE-SEDATION ASSESSMENT: Lung Exam: normal Heart Exam: normal Airway Exam: normal Previous reaction to anesthesia/sedation: No Sedation plan based on assessment: Moderate (conscious) sedation ASA Classification: 2 - Mild systemic disease IMPRESSION: screening PLAN: colonoscopy Joi Ludwig [facility] Office: [phone] H TRUCK DRIVER documented in this encounter Nursing Notes Domitila Morris RN - 07/24/2016 11:33 AM CST Procedure in progress pt is resting comfortably H TRUCK DRIVER documented in this encounter Plan of Treatment Not on filedocumented as of this encounter Procedures Procedure Name Priority Date/Time Associated Diagnosis Comme nts COLONOSCOPY 07/24/2016 11:06 AM Screening TRASH TRUCK DRIVER COLONOSCOPY Routine 07/24/2016 11:06 AM Results for this TRASH TRUCK DRIVER procedure are i n the results section . documented in this encounter Results COLONOSCOPY (07/24/2016 11:06 AM TRASH TRUCK DRIVER) [facility] Method Time Signature COLONOSCOPY [facility] RAD IOLOGY RESULTS Patient Name: Anthony Chun ? Proce dure Date: 07/24/2016 11:06 AM ? Accou nt Number: [id number] Date of : 1950 ?Admit Type: Out patient Age: 66 ? Gender: Male Attending MD: Joi Ludwig MD ? Total Sedation Time: Instrument Name: 124 ? Procedure: ?Colonoscopy Indications: ?Screening for colorec erin malignant neoplasm Providers: ?Joi Ludwig MD (Docto r) Referring MD: ? Alfred Rios MD (Referri scott CABRERA) Medicines: ?Midazolam 2 mg IV, Fentanyl 100 micrograms IV Complications: ?No immediate complications. Procedure: ?Pre-Anesthesia Assessment: ?- Prior to the procedure, a History and Physical ?was performed, and patient medications and ?allergies were reviewed. The patient is competent. ?The risks and benefits of the procedure and the ?sedation options and risks were discussed with the ?patient. All questions were answered and informed ?consent was obtained. Patient identification and ?proposed procedure were verified by the physician ?and the nurse in the procedure room. Mental Status ?E xamination: alert and oriented. Airway ?Examination: normal oropharyngeal airway and neck ?mobility. Respiratory Examination: clear to ?auscultation. CV Examination: normal. Prophylactic ?Antibiotics: The patient does not require ?prophylactic antibiotics. Prior Anticoagulants: The ?patient has taken no previous anticoagulant or ?antiplatelet agents. ASA Grade Assessment: II - A ?patient with mild systemic disease. After reviewing ?the risks and benefits, the patient was deemed in ?satisfactory condition to undergo the procedure. ?The anesthesia plan was to use moderate sedation / ?analgesia (conscious sedation). Immediately prior ?to administration of medications, the patient was ?re-assessed for adequacy to receive sedatives. The ?heart rate, respiratory rate, oxygen saturations, ?blood pressure, adequacy of pulmonary ventilation, ?and response to care were monitored throughout the ?procedure. The physical status of the patient was ?re-assessed after the procedure. ?After obtaining informed consent, the colonoscope ?was passed under direct vision. Throughout the ?procedure, the patient's blood pressure, pulse, and ?oxygen saturations were monitored continuously. The ?Olympus Adult Colonoscope Model #CF-CO477I, ?[place]#124, SN#[id number] was introduced through the ?anus and advanced to the cecum, identified by ?appendiceal orifice and ileocecal valve. The ?colonoscopy was performed without difficulty. The ?patient tolerated the procedure well. The quality ?of the bowel preparat ion was good. ? Findings: ? External hemorrhoids were found during retroflexion a nd were small. ? The exam was otherwise without abnormality. ? Impression: ? - External hemorrhoids. ?- The examination was otherwise normal. Recommendation: ? - Repeat colonosc opy in 10 years for screening ?purposes. ? Electronically signed by Jie Ludwig M.D. Joi Ludwig MD 07/24/2016 11:46 AM I was physically present for the entire viewing portion of t he exam. Joi Ludwig MD Number of Addenda: 0 Note Initiated On: 07/24/2016 11:06 AM MRN: ?[id number] Procedure Date: ? 07/24/2016 11:06:10 AM Scope Withdrawal Time: 0 hours 12 minutes 14 seconds Total Procedure Duration: 0 hours 16 minutes 42 seconds Estimated Blood Loss: ? Scope In: 11:24:17 AM Scope Out: 11:40:59 AM Specimen (Source) Anatomical Collection Method Collection Time Re ceived Time Location / / Volume Laterality 07/24/2016 11:06 AM TRASH TRUCK DRIVER Alfred Rios MD PROCEDURES Performing Organization Address City/State/ZIP Code Phon e Number RADIOLOGY RESULTS documented in this encounter Visit Diagnoses Not on filedocumented in this encounter Administered Medications Inactive Administered Medications - up to 3 most recent administrations Medication Order MAR Action Action Date Dose Rate Site fentaNYL Citrate (PF) (SUBLIMAZE) Given 07/24/2016 11:24 AM TRASH TRUCK DRIVER 50 mcg injection PRN, Starting on Wed07/24/16 at 1121, Intra-procedure Given 07/24/2016 11:21 AM TRASH TRUCK DRIVER 50 mcg midazolam (VERSED) injection Given 07/24/2016 11:22 AM TRASH TRUCK DRIVER 2 mg PRN, Starting on Wed07/24/16 at 1122, Intra-procedure sodium chloride (PF) 0.9% PF flush 3 mL Given 07/24/2016 11:21 AM TRASH TRUCK DRIVER 3 mLs 3 mL, Intracatheter, EVERY 8 HOURS, First dose on Wed07/24/16 at 1100, And Q1H PRN, to lock peripheral IV dormant line., Pre-procedure sodium chloride (PF) 0.9% PF flush 3 mL Given 07/24/2016 11:24 AM TRASH TRUCK DRIVER 3 mLs 3 mL, Intravenous, EVERY 1 MIN PRN, line flush, after medication administration, Starting on Wed07/24/16 at 1045, For peripheral IV flush post IV meds, Pre-procedure documented in this encounter Active and Recently Administered Medications Times are shown in TRASH TRUCK DRIVER. Scheduled Medication Order 07/22/2016 07/23/2016 07/24/2016 sodium chloride (PF) 0.9% PF flush 3 mL (CANCELED) 1100 (Canceled Entry - Provider: Orders Generic Provider - Comment: Automatically canceled at discontinue of medication order)1121 (Given - Provider: Domitila Morris RN) 3 mL, Intracatheter, EVERY 8 HOURS, Firs t dose on Wed07/24/16 at 1100, And Q1H PRN, to lock peripheral IV dormant line., Pre-procedure PRN Medication Order 07/22/2016 07/23/2016 07/24/2016 fentaNYL Citrate (PF) (SUBLIMAZE) injection (CANCELED) 1121 (Given - Provider: Domitila Morris RN - Comment: leighton ludwig/jorje)1124 (Given - Provider: Domitila Morris RN - Comment: leighton ludwig/jorje) PRN, Starting Wed07/24/16 at 1121, Intra-procedure midazolam (VERSED) injection (CANCELED) 1122 (Given - Provider: Domitila Morris RN - Comment: leighton ludwig/f) PRN, Starting Wed07/24/16 at 1122, Intra-procedure sodium chloride (PF) 0.9% PF flush 3 mL (CANCELED) 1124 (Given - Provider: Domitila Morris RN) 3 mL, Intravenous, EVERY 1 MIN PRN, line flush, after medication administration, Starting Wed07/24/16 at 1045, For peripheral IV flush post IV meds, Pre-procedure documented in this encounter Care Teams Digital Experience Manager Relationship Specialty Start Date End Date Alfred Rios MD PCP - General Family Practice 04/18/15 Alfred Rios MD PCP - Assigned PCP 03/22/15 09/13/18 [id number] CAR[address] LAWLER [id number] Alfred Rios MD Assigned PCP 03/22/15 06/01/20 [id number] CAR[place] LAWLER [id number] documented as of this encounter
--- OUTSIDE RECORDS SUMMARY | 2022-04-28 22:55 | XMS_ITS | Encounter Summary ---
:1950 Author Organization [place] Address [address] [place] [address] Care Team Providers Name Role Phone Alfred Rios MD Primary Care Provider [phone] Alfred Rios MD Unavailable Alfred Rios MD Unavailable Reason for Referral Diagnostic Imaging Ultrasound - Closed Specialty Diagnoses / Procedures Referred By Contact Refer red To Contact Radiology. Diagnoses Carotid stenosis Murali Cadet MD Ultrasound Rscc Procedures US Carotid Bilateral [address] [address] [facility] [place] [address] [address] [place] [address] Phone: Fax: Referral ID Status Reason Start Date Expiration Date Visits Requ ested Visits Authorized [id number] Closed 05/12/2018 05/12/2019 1 1 Encounter Details Date Type Department Care Team Description 02/11/2018 [facility] Murali Cadet Carotid stenosis Vascular Clinic Jeremi Bernal MD (Primary Dx) [address] [place] [address] [place] [address] [phone] Social History Tobacco Use Types Packs/Day Years [...] as of this encounter Results US Carotid Bilateral (09/14/2018 3:11 PM IC DESIGNER CUSTOM) Anatomical Region Laterality Modality Vascular, Head Ultrasound Specimen (Source) Anatomical Location Collection Method / Collectio n Time Received Time / Laterality Volume Impressions 09/14/2018 3:21 PM IC DESIGNER CUSTOM IMPRESSION: Per sonographic criteria, there is a 50-69% stenosis in the right internal carotid artery and a less than 50% stenosis in the left internal carotid artery. Degree of stenosis on the right has increased when compared to the previous exam given a higher peak systolic velocity measured in the internet architect al carotid artery on today's exam. Degree of stenosis measured relative to the diameter of the normal internal carotid artery per NASCET or NA SCET type criteria DONELL LISA MD Narrative 09/14/2018 3:21 PM IC DESIGNER CUSTOM US CAROTID BILATERAL 09/14/2018 3:11 PM HISTORY: [...] higher peak systolic velocity measured in the internet architect al carotid artery on today's exam. Degree of stenosis measured relative to the diameter of the normal internal carotid artery per NASCET or NA SCET type criteria DONELL LISA MD Murali Cadet MD [facility] US ORDERABLES documented in this encounter Visit Diagnoses Diagnosis Carotid stenosis - Primary Occlusion and stenosis of carotid artery without mention of cerebral infarction Carotid stenosis Occlusion and stenosis of carotid artery without mention of cerebral infarction documented in this encounter Care Teams Manager Work Relationship Specialty Start Date End Date Alfred Rios MD PCP - General Family Practice 04/18/15 Alfred Rios MD PCP - Assigned PCP 03/22/15 09/13/18 [id number] [facility] [place] [address] Alfred Rios MD Assigned PCP 03/22/15 06/01/20 [id number] [place] LAWLER [id number] documented as of this encounter
--- OUTSIDE RECORDS SUMMARY | 2022-04-28 22:55 | XMS_ITS | Encounter Summary ---
:1950 Author Organization [place] Address Formerly [facility] [place] [address] Care Team Providers Name Role Phone Alfred Rios MD Primary Care Provider [phone] Alfred Rios MD Unavailable Alfred Rios MD Unavailable Reason for Visit Reason Comments *-*INCOMING RECORDS*-* [facility] Encounter Details Date Type Department Care Team Description 01/10/2016 Documentation Only [facility] Sukhjinder, *-*I [facility] [place] Johnson RN RECORDS*-* [address] [facility] [phone] ([facility]) [facility] [address] (Fax) [place] [address] Social History Tobacco Use Types Packs/Day Years Used Date Smoking Tobacco: Former Cigarettes 1 35 Quit : 10/22/1999 Smokeless Tobacco: Never Alcohol Use Standard Drinks/Week Comments Yes 0 (1 standard drink = 0.6 oz pure alcoho l) 1-2 beers daily Sex Assigned at Date Recorded Male 12/31/2020 1:31 PM CDT documented as of this encounter Progress Notes Karie Slaughter RN - 01/10/2016 10:36 AM CDT Office note from SANDRA osullivan @ [facility], 01/07/16 sent to scan documented in this encounter Plan of Treatment Not on filedocumented as of this encounter Visit Diagnoses Not on filedocumented in this encounter Care Teams Harness Racing Handicapper Relationship Specialty Start Date End Date Alfred Rios MD PCP - General Family Practice 04/18/15 Alfred Rios MD PCP - Assigned PCP 03/22/15 09/13/18 [id number] CAR[place] LAWLER [id number] Alfred Rios MD Assigned PCP 03/22/15 06/01/20 [id number] CAR[place] LAWLER [id number] documented as of this encounter
--- OUTSIDE RECORDS SUMMARY | 2022-04-28 22:55 | XMS_ITS | Encounter Summary ---
:1950 Author Organization [place] Address [address] [facility] [place] [address] Care Team Providers Name Role Phone Alfred Rios MD Primary Care Provider [phone] Alfred Rios MD Unavailable Alfred Rios MD Unavailable Reason for Visit Reason Comments RECHECK Right carotid (VHC 1:30; TJG 2:00) *History of right carotid stenosis; 1 year follow up to 05/19/[address] Cadet Encounter Details Date Type Department Care Team Description 06/01/2017 Office Visit [facility] Murali Cadet Carotid stenosis, Vascular Clinic Jeremi Bernal MD asymptomatic, right [address] ([facility]) [address] [place] [address] [place] [address] [phone] Social History Tobacco Use Types Packs/Day Years [...] Sign Reading Time Taken Comments Blood Pressure 107/66 06/01/2017 1:38 PM MANAGER OF PRODUCTION Pulse 60 06/01/2017 1:38 PM MANAGER OF PRODUCTION Temperature - - Respiratory Rate - - Oxygen Saturation - - Inhaled Oxygen Concentration - - Weight - - Height - - Body Mass Index - - documented in this encounter Progress Notes Murali Cadet MD - 06/01/2017 2:00 PM CST Anthony Chun returns today for follow-up of his asymptomatic mild right carotid stenosis. He is roughly 2 years status post CABG. He is entirely without complaints. Exam: Fit-appearing male in no acute distress. Neurologic exam nonfocal. Imaging: RIGHT CAROTID ULTRASOUND 06/01/2017 1:20 PM ?? HISTORY: History of bilateral carotid stenosis. ?? COMPARISON: None. ?? RIGHT CAROTID FINDINGS: Plaque at the carotid bulb and internal carotid artery. ?? Right ICA PSV: 193 cm/sec. Right ICA EDV: 63 cm/sec. Right ICA/CCA PSV Ratio: 1.7 These indicate 50-69% diameter stenosis of the right ICA. Right Vertebral: Antegrade flow. Right ECA: Antegrade flow. ?? Causes of Decreased Accuracy: None. ? IMPRESSION: 50-69% diameter stenosis of the right ICA relative to the distal ICA diameter. ASSESSMENT: 1. Moderate 50-69% asymptomatic right carotid stenosis not yet in need of intervention. By velocity criteria slight progression of disease compared to one year ago. PLAN: I reviewed all the above date. He will continue his medical regimen including daily aspirin. His most recent lipid profile looked excellent. He remains tobacco free. Follow-up will be with me in 1 yearfor repeat bilateral carotid ultrasonography. Total [id number] time was 15 minutes, greater than 50% spent providing counseling and education. Rd Cadet M.D. GER OF PRODUCTION documented in this encounter Nursing Notes Sherri Balderrama MA - 06/01/2017 2:00 PM CST Chief Complaint Patient presents with ??? RECHECK Right carotid (VHC 1:30; TJG 2:00) *History of right carotid stenosis; 1 year follow up to 05/19/[address] Cadet Initial BP 107/66 (BP Location: Left arm, Patient Position: Chair, Cuff Size: Adult Large) Pulse 60 Estimated body mass index is 27.16 kg/(m^2) as calculated from the following: Height as of 08/28/16: 5' 6 (1.676 m). Weight as of 08/28/16: 168 lb 4.8 oz (76.3 kg). Medication Reconciliation: complete Face to face nursing time: 8 minutes Sherri Balderrama MA GER OF PRODUCTION documented in this encounter Plan of Treatment Not on filedocumented as of this encounter Visit Diagnoses Diagnosis Carotid stenosis, asymptomatic, right - Primary documented in this encounter Care Teams Production Tool Engineer Relationship Specialty Start Date End Date Alfred Rios MD PCP - General Family Practice 04/18/15 Alfred Rios MD PCP - Assigned PCP 03/22/15 09/13/18 [id number] CAR[place] LAWLER [id number] Alfred Rios MD Assigned PCP 03/22/15 06/01/20 [id number] CARL LAWLER [id number] documented as of this encounter
--- OUTSIDE RECORDS SUMMARY | 2022-04-28 22:55 | XMS_ITS | Encounter Summary ---
:1950 Author Organization [place] Address [address] [facility] [place] [address] Care Team Providers Name Role Phone Alfred Rios MD Primary Care Provider [phone] Alfred Rios MD Unavailable Alfred Rios MD Unavailable Encounter Details Date Type Department Care Team Description 06/01/2017 Hospital Encounter [facility] Murali Cadet rotid stenosis [facility] MD Gabe [address] [place] [address] [place] [address] [phone] Social History Tobacco Use Types Packs/Day Years [...] Hyperlipidemia with target LDL less than 100 Dextromethorphan-Guaifenes Take by mouth as 0 06/18/2017 in (ROBITUSSIN COUGH+CHEST needed CAROL DM PO) metoprolol (LOPRESSOR) 25 Take 1 tablet (25 [...] Diagnosis Comme nts US CAROTID RIGHT Routine 06/01/2017 1:20 PM Carotid stenosis R esults for this BOTTLING MACHINE OPERATOR procedure are i n the results section. documented in this encounter Results US Carotid Right (06/01/2017 1:20 PM BOTTLING MACHINE OPERATOR) Anatomical Region Laterality Modality Vascular, Head Ultrasound Specimen (Source) Anatomical Location Collection Method / Collectio n Time Received Time / Laterality Volume Impressions 06/01/2017 2:07 PM BOTTLING MACHINE OPERATOR IMPRESSION: ??50-69% diameter stenosis of the right ICA relative to the distal ICA diameter. YVONNE SEXTON DO Narrative 06/01/2017 2:07 PM BOTTLING MACHINE OPERATOR RIGHT CAROTID ULTRASOUND ?? 06/01/2017 1:20 PM HISTORY: ??History of bilateral carotid stenosis. COMPARISON: None. RIGHT CAROTID FINDINGS: ??Plaque at the carotid bulb and internal carotid artery. Right ICA PSV: 193 cm/sec. Right ICA EDV: ??63 cm/sec. Right ICA/CCA PSV Ratio: ??1.7 ?? These indicate 50-69% diameter stenosis of the right ICA. ?? Right Vertebral: Antegrade flow. Right ECA: Antegrade flow. Causes of Decreased Accuracy: ?? None. Procedure Note Yvonne Sexton DO - 2016 RIGHT CAROTID ULTRASOUND 06/01/2017 1:20 PM HISTORY: History of bilateral carotid st enosis. COMPARISON: None. RIGHT CAROTID FINDINGS: Plaque at the ca rotid bulb and internal carotid artery. Right ICA PSV: 193 cm/sec. Right ICA EDV: 63 cm/sec. Right ICA/CCA PSV Ratio: 1.7 These indicate 50-69% diameter stenosis of the right ICA. Right Vertebral: Antegrade flow. Right ECA: Antegrade flow. Causes of Decreased Accuracy: None. IMPRESSION: 50-69% diameter stenosis of the right ICA relative to the distal ICA diameter. YVONNE SEXTON DO Murali Cadet MD IMG US ORDERABLES documented in this encounter Visit Diagnoses Diagnosis Carotid stenosis Occlusion and stenosis of carotid artery without mention of cerebral infarction documented in this encounter Care Teams Strategic Business Development Relationship Specialty Start Date End Date Alfred Rios MD PCP - General Family Practice 04/18/15 Alfred Rios MD PCP - Assigned PCP 03/22/15 09/13/18 [id number] CAR[place] LAWLER [id number] Alfred Rios MD Assigned PCP 03/22/15 06/01/20 [id number] CAR[place] LAWLER [id number] documented as of this encounter
--- OUTSIDE RECORDS SUMMARY | 2022-04-28 22:55 | XMS_ITS | Encounter Summary ---
:1950 Author Organization [place] Address [facility] [place] [address] Care Team Providers Name Role Phone Alfred Rios MD Primary Care Provider [phone] Alfred Rios MD Unavailable Alfred Rios MD Unavailable Reason for Visit Auth/Cert Specialty Diagnoses / Procedures Referred By Contact Refer red To Contact Gastroenterology Diagnoses Screening Rh Endoscopy Procedures COLONOSCOPY [address] [place] [address] Phone: Fax: Referral ID Status Reason Start Date Expiration Date Visits Requ ested Visits Authorized [id number] 1 1 Encounter Details Date Type Department Care Team Description 07/24/[address] [facility] Joi Ludwig Endoscopy [place] MD [place] [address] [place]STRO[place]OLOGY [place], [place] [address] [address] [address] [phone] [place] [address] (Wo rk) Social History Tobacco Use Types [...] Sign Reading Time Taken Comments Blood Pressure 125/71 07/24/2016 12:20 PM PRECAST CONCRETE PRODUCTS INSTALLER Pulse - - Temperature - - Respiratory Rate 16 07/24/2016 12:20 PM PRECAST CONCRETE PRODUCTS INSTALLER Oxygen Saturation 98% 07/24/2016 12:20 PM PRECAST CONCRETE PRODUCTS INSTALLER Inhaled Oxygen Concentration - - Weight 72.6 kg (160 lb) 07/24/2016 10:46 AM PRECAST CONCRETE PRODUCTS INSTALLER Height 167.6 cm (5' 6) 07/24/2016 10:46 AM PRECAST CONCRETE PRODUCTS INSTALLER Body Mass Index 25.82 07/24/2016 10:46 AM PRECAST CONCRETE PRODUCTS INSTALLER documented in this encounter Discharge Instructions AttachmentsThe following attachments cannot be sent through Care Everywhere. HEMORRHOIDS (CHINESE)documented in this encounter Medications at Time of [...] disease IMPRESSION: screening PLAN: colonoscopy Joi Ludwig [facility] Office: [phone] AST CONCRETE PRODUCTS INSTALLER documented in this encounter Nursing Notes Domitila Morris RN - 07/24/2016 11:33 AM CST Procedure in progress pt is resting comfortably AST CONCRETE PRODUCTS INSTALLER documented in this encounter Plan of Treatment Not on filedocumented as of this encounter Procedures Procedure Name Priority Date/Time Associated Diagnosis Comme nts COLONOSCOPY 07/24/2016 11:06 AM Screening PRECAST CONCRETE PRODUCTS INSTALLER COLONOSCOPY Routine 07/24/2016 11:06 AM Results for this PRECAST CONCRETE PRODUCTS INSTALLER procedure are i n the results section . documented in this encounter Results COLONOSCOPY (07/24/2016 11:06 AM PRECAST CONCRETE PRODUCTS INSTALLER) [facility] Method Time Signature COLONOSCOPY [facility] RAD IOLOGY RESULTS Patient Name: Anthony Chun ? Eliana sharma Date: 07/24/2016 11:06 AM ? Accou nt Number: [id number] Date of : 1950 ?Admit Type: Out patient Age: 66 ? Gender: Male Attending MD: Joi Ludwig MD ? Total Sedation Time: Instrument Name: 124 ? Procedure: ?Colonoscopy Indications: ?Screening for colorec erin malignant neoplasm Providers: ?[facility] Referring MD: ? Alfred Rios MD [...] monitored continuously. The ?Olympus Adult Colonoscope Model #[id number], ?[place]#124, SN#[id number] was introduced through the ?anus and advanced [...] Note Initiated On: 07/24/2016 11:06 AM MRN: ?[id number] Procedure Date: ? 07/24/2016 11:06:10 AM Scope Withdrawal Time: 0 hours 12 minutes 14 seconds Total Procedure Duration: 0 hours 16 minutes 42 seconds Estimated Blood Loss: ? Scope In: 11:24:17 AM Scope Out: 11:40:59 AM Specimen (Source) Anatomical Collection Method Collection Time Re ceived Time Location / / Volume Laterality 07/24/2016 11:06 AM PRECAST CONCRETE PRODUCTS INSTALLER Alfred Rios MD PROCEDURES Performing Organization Address City/State/ZIP Code Phon e Number RADIOLOGY RESULTS documented in this encounter Visit Diagnoses Not on filedocumented in this encounter Active and Recently Administered Medications Times are shown in PRECAST CONCRETE PRODUCTS INSTALLER. Scheduled Medication Order 07/22/2016 07/23/2016 07/24/2016 sodium [...] Pre-procedure documented in this encounter Care Teams Mortarman Relationship Specialty Start Date End Date Alfred Rios MD PCP - General Family Practice 04/18/15 Alfred Rios MD PCP - Assigned PCP 03/22/15 09/13/18 [id number] CARL LAWLER [id number] Alfred Rios MD Assigned PCP 03/22/15 06/01/20 [id number] CARL LAWLER [id number] documented as of this encounter
--- OUTSIDE RECORDS SUMMARY | 2022-04-28 22:55 | XMS_ITS | Encounter Summary ---
:1950 Author Organization [place] Address [address] [place] [address] Care Team Providers Name Role Phone Alfred Rios MD Primary Care Provider [phone] Alfred Rios MD Unavailable Alfred Rios MD Unavailable Reason for Visit Reason Comments Medicare Visit fasting Encounter Details Date Type Department Care Team Description 06/18/[address] [facility] Alfred Rios Hyperlipi demia with target LDL less than 100 (Primary Dx); Clinic Yvonne Peterson MD Routine general medical examination at a health care facility; [place] [address] [address] Coronary artery disease involving josue ry bypass graft of [place] heart without angina pectoris; Road, [address] [place], [place] Essential hypertension, [address]illa gn; [place] [address] Leg pain, bilateral [phone] Social History Tobacco Use Types Packs/Day [...] Sign Reading Time Taken Comments Blood Pressure 110/70 06/18/2017 9:28 AM BATTERY CONTAINER INSPECTOR Pulse 64 06/18/2017 9:28 AM BATTERY CONTAINER INSPECTOR Temperature 36.8 ??C (98.2 ??F) 06/18/2017 9:28 AM BATTERY CONTAINER INSPECTOR Respiratory Rate 20 06/18/2017 9:28 AM BATTERY CONTAINER INSPECTOR Oxygen Saturation - - Inhaled Oxygen Concentration - - Weight 75.8 kg (167 lb 3.2 oz) 06/18/2017 9:28 AM BATTERY CONTAINER INSPECTOR Height - - Body Mass Index 26.99 08/28/2016 8:11 AM BATTERY CONTAINER INSPECTOR documented in this encounter Patient Instructions Patient InstructionsRula Rollins, MELANY - 06/18/2017 8:39 AM BATTERY CONTAINER INSPECTOR Preventive Health Recommendations: Male Ages 65 and [...] such as glaucoma, macular degeneration and cataracts. ERY CONTAINER INSPECTOR documented in this encounter Progress Notes Alfred Rios MD - 06/18/2017 8:40 AM CST SUBJECTIVE: Anthony Chun is a 67 year old male who presents for Preventive Visit. Are you in the first 12 months of your Medicare Part B coverage? No Healthy Habits: Answers for HPI/ROS submitted by the patient on 06/18/2017 Annual Exam: Getting at least 3 servings of Calcium per day:: Yes Bi-annual eye exam:: Yes Dental care twice a year:: Yes Sleep apnea or symptoms of sleep apnea:: None Diet:: Regular (no restrictions) Frequency of exercise:: 6-7 days/week Taking medications regularly:: Yes Medication side effects:: None Additional concerns today:: YES PHQ-2 Score: 0 Duration of exercise:: 45-60 minutes COGNITIVE SCREEN 1) Repeat 3 items (Banana, Sholes, Chair) 2) Clock draw: NORMAL 3) 3 item recall: Recalls 3 objects Results: 3 items recalled: COGNITIVE IMPAIRMENT LESS LIKELY Mini-CogTM Viri Rosa. Licensed by the author for use in [facility]; reprintedwith permission ([email or web address]). All rights reserved. Reviewed and updated as needed this visit by clinical staffAllergies Reviewed and updated as needed this visit by Provider Social History Substance Use Topics ??? Smoking status: Former Smoker Packs/day: 1.00 Years: 35.00 Types: Cigarettes Quit date: 10/22/1999 ??? Smokeless tobacco: Never Used ??? Alcohol use 0.0 oz/week 0 Standard drinks or equivalent per week Comment: 1-2 beers daily Today's PHQ-2 Score: PHQ-2 (??1998 Pfizer) 06/18/2017 06/18/2017 Q1: Little interest or pleasure in doing things 0 0 Q2: Feeling down, depressed or hopeless 0 0 PHQ-2 Score 0 0 Q1: Little interest or pleasure in doing things Not at all - Q2: Feeling down, depressed or hopeless Not at all - PHQ-2 Score 0 - Do you feel safe in your environment - Yes Do you have a Health Care Directive?: Yes: Advance Directive has been received and scanned. Current providers sharing in care for this patient include: Patient Care Team: Alfred Rios MD as PCP - General (Family Practice) ?? Hearing impairment: Yes, Difficulty following a conversation in a noisy restaurant or crowded room. ?? Find that men's voices are easier to understand than women's. ?? Difficulty understanding soft or whispered speech. ?? Ability to successfully perform activities of daily living: Yes, no assistance needed ?? Fall risk: Fallen 2 or more times in the past year?: No Any fall with injury in the past year?: No ?? Home safety: throw rugs in the hallway The following health maintenance items are reviewed in [employer] and correct as of today: Health Maintenance Topic Date Due ??? INFLUENZA VACCINE (SYSTEM ASSIGNED) 03/12/2017 ??? FALL RISK ASSESSMENT 06/17/2017 ??? LIPID MONITORING Q1 YEAR 08/05/2017 ??? TETANUS IMMUNIZATION (SYSTEM ASSIGNED) 12/25/2019 ??? ADVANCE DIRECTIVE PLANNING Q5 YRS 04/16/2020 ??? COLON CANCER SCREEN (SYSTEM ASSIGNED) 07/24/2026 ??? PNEUMOCOCCAL Completed ??? AORTIC ANEURYSM SCREENING (SYSTEM ASSIGNED) Completed ??? 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 Also having more cramping, tend to get numb when standing for long periodsof time. NO leg pain when walking, walks at least 10,000 steps daily. Noting some JUANCHO hip ROS: Constitutional, HEENT, cardiovascular, pulmonary, GI, , musculoskeletal, neuro, skin, endocrine and psych systems are negative, except as otherwise noted. OBJECTIVE: BP 110/70 Estimated body mass index is 27.16 kg/(m^2) as calculated from the following: Height as of 08/28/16: 5' 6 (1.676 m). Weight as of 08/28/16: 168 lb 4.8 oz (76.3 kg). EXAM: GENERAL: healthy, alert and no [...] affect normal/bright ASSESSMENT / PLAN: ICD-10-CM 1. Hyperlipidemia with target LDL less than 100 E78.5 atorvastatin (LIPITOR) 40 MG tablet Lipid panel reflex to direct LDL Fasting 2. Routine general medical examination at a health care facility Z00.00 3. Coronary artery disease involving coronary bypass graft of [place] heart without angina pectoris I25.810 nitroGLYcerin (NITROSTAT) 0.4 MG sublingual tablet 4. Essential hypertension, benign I10 metoprolol (LOPRESSOR) 25 MG tablet Basic metabolic panel 5. Leg pain, bilateral M79.604 US Low Extremity Arterial Duplex Bilateral & AMNSOOR w Exercise - higher risk, has had mltiple MS, s/p CABG M79.605 End of Life Planning: Patient currently has an advanced directive: Yes. Practitioner is supportive of decision. COUNSELING: Reviewed preventive health counseling, as reflected in patient instructions Regular exercise Vision screening Dental care Estimated body mass index is 27.16 kg/(m^2) as calculated from the following: Height as of 08/28/16: 5' 6 (1.676 m). Weight as of 08/28/16: 168 lb 4.8 oz (76.3 kg). reports that he quit smoking about 17 years ago. His smoking use included Cigarettes. He has a 35.00 pack-year smoking history. [...] Prophylaxis Lung CA Screening Alfred Rios MD [facility] ERY CONTAINER INSPECTOR documented in this encounter Plan of Treatment Not on filedocumented as of this encounter Procedures Procedure Name Priority Date/Time Associated Diagnosis Comme nts LIPID REFLEX TO Routine 06/18/2017 9:25 AM Hyperlipidemia with Results for this DIRECT LDL PANEL BATTERY CONTAINER INSPECTOR target LDL less than pro cedure are in 100 the results section. BASIC METABOLIC Routine 06/18/2017 9:25 AM Essential hypertens ion, Results for this PANEL BATTERY CONTAINER INSPECTOR benign procedure are i n the results section. documented in this encounter Results Lipid panel reflex to direct LDL Fasting (06/18/2017 9:25 AM BATTERY CONTAINER INSPECTOR) P athologist Signature Cholesterol 130 <200 mg/dL 06/19/2017 [facility] 10:12 AM [facility] Triglycerides 72 <150 mg/dL 06/19/2017 [facility] 10:12 AM [facility] Comment: Fasting specimen HDL Cholesterol 64 >39 mg/dL 06/19/2017 10:23 AM [facility] LDL Cholesterol 52 <100 mg/dL 06/19/2017 10:23 AM [facility] Calculated [facility] Comment: Desirable: <100 mg/dl Non HDL Cholesterol 66 <130 mg/dL 06/19/2017 10:[address] [facility] Specimen Anatomical Collection Method Collection Time Receive d Time (Source) Location / / Volume Laterality Blood specimen 06/18/2017 9:25 AM 017 9:30 (specimen) BATTERY CONTAINER INSPECTOR AM BATTERY CONTAINER INSPECTOR Alfred Rios MD LAB - BLOOD ORDERABLES Performing Organization Address City/State/ZIP Code Phon e Number [facility] [address] [place] [address] Basic metabolic panel (06/18/2017 9:25 AM BATTERY CONTAINER INSPECTOR) P athologist Signature Sodium 141 133 - 144 06/19/2017 [facility] mmol/L 10:12 AM [facility] Potassium 4.5 3.4 - 5.3 06/19/2017 [facility] mmol/L 10:12 AM [facility] Chloride 107 94 - 109 06/19/2017 [facility] mmol/L 10:12 AM [facility] Carbon Dioxide 25 20 - 32 06/19/2017 [facility] mmol/L 10:12 AM [facility] Anion Gap 9 3 - 14 06/19/2017 [facility] mmol/L 10:12 AM [facility] Glucose 96 70 - 99 06/19/2017 [facility] mg/dL 10:12 AM [facility] Comment: Fasting specimen Urea Nitrogen 17 7 - 30 mg/dL 06/19/2017 10:12 AM [facility] Creatinine 1.14 0.66 - 1.25 mg/dL 06/19/2017 10:12 AM [facility] GFR Estimate 64 >60 mL/min/1.7m2 06/19/2017 10:12 AM [facility] Comment: Non GFR Calc GFR Estimate If 77 >60 mL/min/1.7m2 06/19/2017 10:12 AM [facility] Black [facility] Comment: GFR Calc Calcium 8.8 8.5 - 10.1 mg/dL 06/19/2017 10:[address] [facility] Specimen Anatomical Collection Method Collection Time Receive d Time (Source) Location / / Volume Laterality Blood specimen 06/18/2017 9:25 AM 017 9:30 (specimen) BATTERY CONTAINER INSPECTOR AM BATTERY CONTAINER INSPECTOR Alfred Rios MD LAB - BLOOD ORDERABLES Performing Organization Address City/[facility]/ZIP Code Phon e Number [facility] [address] [place] [address] documented in this encounter Visit Diagnoses Diagnosis Hyperlipidemia with target LDL less than 100 - Primary Other and unspecified hyperlipidemia Routine general medical examination at a health care facility Coronary artery disease involving josue ry bypass graft of [place] heart without angina pectoris Essential hypertension, benign Leg pain, bilateral Pain in limb documented in this encounter Care Teams Accounts Payable Accountant Relationship Specialty Start Date End Date Alfred Rios MD PCP - General Family Practice 04/18/15 Alfred Rios MD PCP - Assigned PCP 03/22/15 09/13/18 [id number] CARL LAWLER [id number] Alfred Rios MD Assigned PCP 03/22/15 06/01/20 [id number] CARL LAWLER [id number] documented as of this encounter
--- OUTSIDE RECORDS SUMMARY | 2022-04-28 22:55 | XMS_ITS | Encounter Summary ---
:1950 Author Organization [place] Address [facility] [place] [address] Care Team Providers Name Role Phone Alfred Rios MD Primary Care Provider [phone] Alfred Rios MD Unavailable Alfred Rios MD Unavailable Encounter Details Date Type Department Care Team Description 08/05/2016 Orders Only [facility] annual wellness visit, initial; [employer] S/P CABG (coronary artery by pass graft); [facility], Hyper lipidemia with target LDL less than [address] [place] [address] Social History Tobacco Use Types [...] Diagnosis Comme nts LIPID REFLEX TO Routine 08/05/2016 9:32 AM Medicare annual Res ults for this DIRECT LDL PANEL IVORY POLISHER wellness visit, procedur e are in initial the results S/P CABG (coronary section. artery bypass gr aft) Hyperlipidemia with target LDL less than 100 documented in this encounter Results LIPID REFLEX TO DIRECT LDL PANEL (08/05/2016 9:32 AM IVORY POLISHER) [facility] gist Method Time Signature Cholesterol 137 <200 [place] mg/dL [facility] Triglycerides 57 <150 [place] mg/dL [facility] HDL Cholesterol 67 >39 mg/dL [facility] LDL Cholesterol 59 <100 [place] Calculated mg/dL [facility] Comment: Desirable: <100 mg/dl Non HDL Cholesterol 70 <130 mg/dL [facility] Specimen Anatomical Collection Method Collection Time Receive d Time (Source) Location / / Volume Laterality Blood specimen 08/05/2016 9:32 AM 017 9:37 (specimen) IVORY POLISHER AM IVORY POLISHER Alfred Rios MD LAB - BLOOD ORDERABLES Performing Organization Address City/State/ZIP Code Phon e Number [facility] [address] [place] [address] documented in this encounter Visit Diagnoses Diagnosis Medicare annual wellness visit, initial Routine general medical examination at a [facility] facility S/P CABG (coronary artery bypass graft) Postsurgical aortocoronary bypass status Hyperlipidemia with target LDL less than 100 Other and unspecified hyperlipidemia documented in this encounter Care Teams Revenue Accounting Manager Relationship Specialty Start Date End Date Alfred Rios MD PCP - General Family Practice 04/18/15 Alfred Rios MD PCP - Assigned PCP 03/22/15 09/13/18 [id number] CARL LAWLER [id number] Alfred Rios MD Assigned PCP 03/22/15 06/01/20 [id number] CARL LAWLER [id number] documented as of this encounter
--- OUTSIDE RECORDS SUMMARY | 2022-04-28 22:55 | XMS_ITS | Encounter Summary ---
:1950 Author Organization [place] Address [facility] [place] [address] Care Team Providers Name Role Phone Alfred Rios MD Primary Care Provider [phone] Alfred Rios MD Unavailable Alfred Rios MD Unavailable Reason for Visit Reason Comments Results nuclear study Encounter Details Date Type Department Care Team Description 08/17/[address] [facility] Rivera Slaughter (nuclear Heart Clinic Aleshia Johnson RN study) [address] [place] [address] [facility] [address] (Fax) [place] [address] Social History Tobacco Use Types Packs/Day Years Used Date Smoking Tobacco: Former Cigarettes 1 35 Quit : 10/22/1999 Smokeless Tobacco: Never Alcohol Use Standard Drinks/Week Comments Yes 0 (1 standard drink = 0.6 oz pure alcoho l) 1-2 beers daily Sex Assigned at Date Recorded Male 12/31/2020 1:31 PM CDT documented as of this encounter Progress Notes Karie Slaughter RN - 08/17/2016 10:23 AM CST Nuclear study 08/17/16 noted. Patient has OV 08/28/[address] Flowers to review Called patient with preliminary result, he states he still feels a sort of catch in his chest whenhe is walking his dog up hill. Will message Dr. Flowers to review TWISTING MACHINE OPERATOR documented in this encounter Plan of Treatment Not on filedocumented as of this encounter Visit Diagnoses Not on filedocumented in this encounter Care Teams Process Operator Relationship Specialty Start Date End Date Alfred Rios MD PCP - General Family Practice 04/18/15 Alfred Rios MD PCP - Assigned PCP 03/22/15 09/13/18 [id number] CARL LAWLER [id number] Alfred Rios MD Assigned PCP 03/22/15 06/01/20 [id number] CARL LAWLER [id number] documented as of this encounter
--- OUTSIDE RECORDS SUMMARY | 2022-04-28 22:55 | XMS_ITS | Encounter Summary ---
:1950 Author Organization [place] Address [address] [facility] [place] [address] Care Team Providers Name Role Phone Alfred Rios MD Primary Care Provider [phone] Alfred Rios MD Unavailable Alfred Rios MD Unavailable Encounter Details Date Type Department Care Team Description 05/20/2016 [facility] Murali Cadet Carotid stenosis Vascular Clinic Jeremi Bernal MD (Primary Dx) [address] [place] [id number] [place] [id number] Social History Tobacco Use Types Packs/Day Years [...] of this encounter Results US Carotid Right (06/01/2017 1:20 PM SOAP INSPECTOR) Anatomical Region Laterality Modality Vascular, Head Ultrasound Specimen (Source) Anatomical Location Collection Method / Collectio n Time Received Time / Laterality Volume Impressions 06/01/2017 2:07 PM SOAP INSPECTOR IMPRESSION: ??50-69% diameter stenosis of the right ICA relative to the distal ICA diameter. YVONNE SEXTON DO Narrative 06/01/2017 2:07 PM SOAP INSPECTOR RIGHT CAROTID ULTRASOUND ?? 06/01/2017 1:20 PM [...] diameter. YVONNE SEXTON DO Murali Cadet MD IM US ORDERABLES documented in this encounter Visit Diagnoses Diagnosis Carotid stenosis - Primary Occlusion and stenosis of carotid artery without mention of cerebral infarction Carotid stenosis Occlusion and stenosis of carotid artery without mention of cerebral infarction documented in this encounter Care Teams Area Attendant Relationship Specialty Start Date End Date Alfred Rios MD PCP - General Family Practice 04/18/15 Alfred Rios MD PCP - Assigned PCP 03/22/15 09/13/18 [id number] [place] LAWLER [id number] Alfred Rios MD Assigned PCP 03/22/15 06/01/20 [id number] [place], [place] [id number] documented as of this encounter
--- OUTSIDE RECORDS SUMMARY | 2022-04-28 22:55 | XMS_ITS | Encounter Summary ---
:1950 Author Organization [place] Address [facility] [place] [address] Care Team Providers Name Role Phone Yi Morales MD Primary Care Provider [phone] Yi Morales MD Unavailable Yi Morales MD Unavailable Reason for Visit (Routine) - Closed Specialty Diagnoses / Procedures Referred By Contact Refer red To Contact Radiology / Cardiology Diagnoses Per Dr. Morales, Peripheral vascular disease (H) Exercise intolerance *bmf* Rh Echo cc Procedures US MANSOOR DOPPLER W EXERC BILAT [address] [place] [address] Phone: Fax: Referral ID Status Reason Start Date Expiration Date Visits Requ ested Visits Authorized [id number] Closed 07/02/2017 07/02/2018 1 1 Encounter Details Date Type Department Care Team Description 07/02/2017 Hospital Encounter [facility] Yi Gooden Per ipheral vascular disease (H) ; [facility] MD Nicholas Exercise intolerance [facility] [address] [address] [address] [place] [employer] [address] [place], [place] [address] Social History Tobacco Use Types Packs/Day [...] Take 1 tablet (40 90 tablet 3 02/201708/16/2018 MG tabletIndications: mg) by mouth daily Hyperlipidemia with target LDL less than 100 metoprolol (LOPRESSOR) 25 Take 1 tablet (25 180 tablet 3 02/201708/16/2018 MG tabletIndications: mg) by mouth 2 Essential hypertension, times daily benign nitroGLYcerin (NITROSTAT) One tablet under 25 tablet 3 02/201709/12/2018 0.4 MG sublingual the tongue every 5 tabletIndications: minutes if needed Coronary artery disease for chest pain. involving coronary bypass May repeat every 5 graft of [place] heart minutes for a without angina pectoris maximum of 3 doses in 15 minutes documented as of this encounter Plan of Treatment Not on filedocumented as of this encounter Procedures Procedure Name Priority Date/Time Associated Diagnosis Comme nts US MANSOOR DOPPLER WITH Routine 07/02/2017 11:42 AM Peripheral vas cular Results for this EXERCISE BILATERAL HISTORY DEPARTMENT CHAIR disease (H) procedure are in Exercise intolerance the res ults section. documented in this encounter Results US MANSOOR Doppler with Exercise Bilateral (07/02/2017 11:42 AM HISTORY DEPARTMENT CHAIR) Anatomical Region Laterality Modality Leg, Ankle, Foot Ultrasound Specimen (Source) Anatomical Location Collection Method / Collectio n Time Received Time / Laterality Volume Impressions 07/02/2017 1:37 PM HISTORY DEPARTMENT CHAIR IMPRESSION: Resting and post exercise MANSOOR bilateral [...] criteria published in Circulat ion 2011; 124: 9872-2772. Traditional MANSOOR Diagnostic Criteria: ??>/=1.3 - non compressible vessels ??1.00 ??-1.29 - Normal ??0.91 - 0.99 - Borderline ??0.41 - 0.90 - Mild to moderate PAD ??0.00 - 0.40 - Severe PAD Interpretation of Post-exercise ABIs: 1. Absolute drop of 0.15 in MANSOOR. 2. Pressure drop of > 20%. ?? ITZEL THOMASON MD Narrative 07/02/2017 1:37 PM HISTORY DEPARTMENT CHAIR EXAM: Bilateral lower extremity MANSOOR with exercise dated 07/02/2017 11:42 AM COMPARISON STUDY: none CLINICAL HISTORY: ; Peripheral vascular disease (H); Exercise intolerance ORDERING CLINICIAN: YI MORALES Procedure Note Itezl Thomason MD - 07/02/2017Formattin g of this [...] criteria published in Circulat ion 2011; 124: 0582-2714. Traditional MANSOOR Diagnostic Criteria: >/=1.3 - non compressible vessels 1.00 -1.29 - Normal 0.91 - 0.99 - Borderline 0.41 - 0.90 - Mild to moderate PAD 0.00 - 0.40 - Severe PAD Interpretation of Post-exercise ABIs: 1. Absolute drop of 0.15 in MANSOOR. 2. Pressure drop of > 20%. ITZEL THOMASON MD Yi Morales MD [facility] ORDERABLES documented in this encounter Visit Diagnoses Diagnosis Peripheral vascular disease (H) Peripheral vascular disease, unspecified Exercise intolerance Other general symptoms documented in this encounter Care Teams 911 Operator Relationship Specialty Start Date End Date Yi Morales MD PCP - General Family Practice 04/18/15 Yi Morales MD PCP - Assigned PCP 03/22/15 09/13/18 [id number] [address] [id number] Yi Morales MD Assigned PCP 03/22/15 06/01/20 [address] [address] [id number] documented as of this encounter
--- OUTSIDE RECORDS SUMMARY | 2022-04-28 22:55 | XMS_ITS | Encounter Summary ---
:1950 Author Organization [place] Address [address] [place] [address] Care Team Providers Name Role Phone Alfred Rios MD Primary Care Provider [phone] Alfred Rios MD Unavailable Alfred Rios MD Unavailable Reason for Visit Reason Comments RECHECK annual f/u Past medical history CAD (s/p CABG 05/22/15 RIVAS to LAD), HTN, Hyperlipidemia (managed by PMD), Cardiac Is chemia (positive stress test 04/2015), CKD stage 2, Carot id Stenosis (right) - Closed Specialty Diagnoses / Procedures Referred By Contact Refer red To Contact Diagnoses Chronic ischemic heart disease S/P CABG (coronary artery bypass graft) Chest pain, unspecified type Alton Rm MD [facility] [address] [place] [address] Referral ID Status Reason Start Date Expiration Date Visits Requ ested Visits Authorized [id number] Closed 08/28/2017 08/28/2018 1 1 Encounter Details Date Type Department Care Team Description 09/01/2017 Office Visit [facility] Alton Rm, Chronic ischemic heart disease; [facility] Cheryl CABRERA S/P CABG (coronary artery bypass graft); [address] [facility] AND Chest pain, unspecified type [facility] [address] [place] [address] [address] [phone] [place] [address] Social History Tobacco Use Types Packs/Day Years [...] Sign Reading Time Taken Comments Blood Pressure 112/56 09/01/2017 1:14 PM EVICTION SPECIALIST Pulse 71 09/01/2017 1:14 PM EVICTION SPECIALIST Temperature - - Respiratory Rate - - Oxygen Saturation 98% 09/01/2017 1:14 PM EVICTION SPECIALIST Inhaled Oxygen Concentration - - Weight 76.1 kg (167 lb 12.8 oz) 09/01/2017 1:14 PM EVICTION SPECIALIST Height - - Body Mass Index 27.08 08/28/2016 8:11 AM EVICTION SPECIALIST documented in this encounter Progress Notes Alton Rm MD - 09/01/2017 1:45 PM CST Service Date: 09/01/2017 HISTORY OF PRESENT ILLNESS: Mr. Billingsley is a pleasant 67-year-old gentleman with a history of coronaryartery disease status post robotic-assisted coronary artery bypass with a RIVAS to the LAD for known left main and ostial LAD stenosis with Dr. Ceils in 2012. He is known to have moderate disease in the right coronary artery. He returns in annual followup. The patient has previously and continuously had chest heaviness in cold weather when he goes [place] a [place] near his home. We performed a stress test last year which showed no evidence for myocardial ischemia or ECG changes. It appears to be related to possible underlying lung disease, but the patient has not followed back with his family physician for this as I have previously recommended. He denies any other types of chest pain or chest heaviness. He actually walks more than 10,000 stepsper day and up to 25,000 steps per day without any chest heaviness. He also cuts wood frequently without any cardiac symptoms. He denies any other types of chest pain, chest pressure, shortness of breath, orthopnea or paroxysmal nocturnal dyspnea. In reviewing his blood work, his most recent LDL was 52. His blood pressure was 112/56 in the officetoday. Please see my separate note with his full physical examination. IMPRESSION AND PLAN: Mr. Billingsley is a pleasant 67-year-old gentleman with coronary artery disease as detailed above. I believe that his chest discomfort in cold air is likely related to the lung disease and not heart disease. He is otherwise quite active without chest pain and had a nuclear stress test a year ago that did not show evidence for myocardial ischemia. At this time, I would recommend continued medical management with an aspirin, atorvastatin and beta brisa unchanged. I have encouraged the patient to continue with healthy lifestyle and I will plan to see the patient back in routine clinical followup in 1 year. ALTON RM MD MT: VEENA Name: RUSSEL BILLINGSLEY MRN: [id number] Account: [id number] : 1950 Service Date: 09/01/2017 Document: [id number] TION SPECIALIST Alton Rm MD - 09/01/2017 1:15 PM CST HPI and Plan: See dictation Orders Placed This Encounter Procedures ??? Follow-Up with Solar Energy Sales Specialist No orders of the defined types were placed in this encounter. There are no discontinued medications. Encounter Diagnoses Name Primary? Chronic ischemic heart disease ??? S/P CABG (coronary artery bypass graft) ??? Chest pain, unspecified type CURRENT MEDICATIONS: Current Outpatient Prescriptions Medication Sig Dispense Refill ??? nitroGLYcerin (NITROSTAT) 0.4 MG sublingual tablet One tablet under the tongue every 5 minutes if needed for chest pain. May repeat every 5 minutes for a maximum of 3 doses in 15 minutes 25 tablet3 ??? metoprolol (LOPRESSOR) 25 MG tablet Take 1 tablet (25 mg) by mouth 2 times daily 180 tablet 3 ??? atorvastatin (LIPITOR) 40 MG tablet Take 1 tablet (40 mg) by mouth daily 90 tablet 3 ??? aspirin 81 MG chewable [...] 2 (mild) 04/17/2015 ??? Family history of SC (myocardial infarction) 04/16/2015 ??? Hyperlipidemia ??? Hypertension [...] Fede Celis MD; Location: [facility] OR ??? ROTATOR CUFF REPAIR RT/LT Right 2009 ??? SEPTOPLASTY 1977 ??? VASECTOMY 1979 FAMILY HISTORY: Family History Problem Relation Age of Onset ??? Hyperlipidemia Mother ??? CEREBROVASCULAR DISEASE Mother ??? CANCER Father kidney ??? Coronary Artery Disease Father 40 ??? Hyperlipidemia Brother ??? Hyperlipidemia Sister SOCIAL HISTORY: Social History Social History ??? [...] trouble;postnasal drainage right ear Respiratory: Positive for cough;wheezing cough has decreased Cardiovascular: dizziness;Positive for dizzy when coming up from bending over and getting out of bed Gastroenterology: Negative Genitourinary: Negative Musculoskeletal: Positive for nocturnal cramping occas leg cramps Neurologic: Negative numbness or tingling of feet;numbness or tingling of hands rare headaches Psychiatric: Negative Heme/Lymph/Imm: Negative Endocrine: Negative Physical Exam: Vitals: BP 112/56 (BP Location: Right arm, Patient Position: Chair, Cuff Size: Adult Regular) Pulse 71 Wt 76.1 kg (167 lb 12.8 oz) SpO2 98% BMI 27.08 kg/m2 Constitutional: well developed;well nourished Skin: warm and dry to the touch surgical scars well-healed Head: normocephalic Eyes: sclera white Lymph: ENT: no pallor or cyanosis;dentition good Neck: not assessed this visit Respiratory: clear to auscultation Cardiac: regular rhythm;normal S1 and S2 pulses full and equal GI: abdomen soft Extremities and Muscular Skeletal: no edema Neurological: no gross motor deficits;affect appropriate Psych: CC Alton Rm MD [address] [place] [id number] TION SPECIALIST documented in this encounter Plan of Treatment Not on filedocumented as of this encounter Visit Diagnoses Diagnosis Chronic ischemic heart disease Chronic ischemic heart disease, unspecif ied S/P CABG (coronary artery bypass graft) Postsurgical aortocoronary bypass status Chest pain, unspecified type documented in this encounter Care Teams Embossing Press Operator Molded Goods Relationship Specialty Start Date End Date Alfred Rios MD PCP - General Family Practice 04/18/15 Alfred Rios MD PCP - Assigned PCP 03/22/15 09/13/18 [id number] [address] [id number] Alfred Rios MD Assigned PCP 03/22/15 06/01/20 [address] [address] [id number] documented as of this encounter
--- OUTSIDE RECORDS SUMMARY | 2022-04-28 22:55 | XMS_ITS | Encounter Summary ---
:1950 Author Organization [place] Address [address] [facility] [place] [address] Care Team Providers Name Role Phone Alfred Rios MD Primary Care Provider [phone] Alfred Rios MD Unavailable Alfred Rios MD Unavailable Encounter Details Date Type Department Care Team Description 05/19/2016 Hospital Encounter [facility] Murali Cadet rotid stenosis, [facility] MD Gabe bilateral [address] [place] [address] [place] [id number] Social History Tobacco Use Types Packs/Day Years [...] Take 1 tablet (40 90 tablet 3 06/17/2016 MG tablet mg) by mouth daily metoprolol (LOPRESSOR) 25 Take 1 tablet (25 180 tablet 3 06/17/2016 MG tabletIndications: S/P mg) by mouth 2 [...] Associated Diagnosis Comme nts US CAROTID Routine 05/19/2016 12:52 PM Carotid stenosis, Res ults for this BILATERAL PRINT PRODUCER bilateral procedure are i n the results section. documented in this encounter Results US Carotid Bilateral (05/19/2016 12:52 PM PRINT PRODUCER) Anatomical Region Laterality Modality Vascular, Head Ultrasound Specimen (Source) Anatomical Location Collection Method / Collectio n Time Received Time / Laterality Volume Impressions 05/19/2016 1:17 PM PRINT PRODUCER IMPRESSION: 1. 50-79% right internal carotid artery stenosis. Peak carotid velocities and the carotid ratio are les s than that demonstrated on the previous study. 2. Stable less than 15% left internal ca rotid artery stenosis. HERSON DAVIS MD Narrative 05/19/2016 1:17 PM PRINT PRODUCER ULTRASOUND CAROTID BILATERAL ??05/19/2016 12:52 PM HISTORY: Follow-up carotid stenosis. COMPARISON: 05/06/2015. FINDINGS: Duplex ultrasound with waveKiddie Kist m spectral analysis and color flow imaging was performed. Right carotid circulation: Moderate plaq ue involves the origin and proximal right internal carotid artery w ith peak internal carotid artery velocity of 166/62 cm/s and a car otid ratio of 1.6 corresponding to a 50-79% stenosis relat verónica to the distal internal carotid artery. The higher velocities an d carotid ratio demonstrated on the previous study could not be dupli cated on today's exam. Left carotid circulation: Minimal focal plaque involves the proximal left internal carotid artery with peak i nternal carotid artery velocity of 119/31 cm/s and a carotid ra cliff of 1.1 corresponding to a stable less than 15% stenosis relative t o the distal internal carotid artery. There is antegrade flow in both vertebra l arteries. Procedure Note Herson Davis MD - 05/19/2016Formatti ng of this note might be different from the original. ULTRASOUND CAROTID BILATERAL 05/19/2016 1 2:52 PM HISTORY: Follow-up carotid stenosis. COMPARISON: 05/06/2015. FINDINGS: Duplex ultrasound with waveKiddie Kist m spectral analysis and color flow imaging was performed. Right carotid circulation: Moderate plaq ue involves the origin and proximal right internal carotid artery w ith peak internal carotid artery velocity of 166/62 cm/s and a car otid ratio of 1.6 corresponding to a 50-79% stenosis relat verónica to the distal internal carotid artery. The higher velocities an d carotid ratio demonstrated on the previous study could not be dupli cated on today's exam. Left carotid circulation: Minimal focal plaque involves the proximal left internal carotid artery with peak i nternal carotid artery velocity of 119/31 cm/s and a carotid ra cliff of 1.1 corresponding to a stable less than 15% stenosis relative t o the distal internal carotid artery. There is antegrade flow in both vertebra l arteries. IMPRESSION: 1. 50-79% right internal carotid artery stenosis. Peak carotid velocities and the carotid ratio are les s than that demonstrated on the previous study. 2. Stable less than 15% left internal ca rotid artery stenosis. HERSON DAVIS MD Murali Cadet MD [facility] ORDERABLES documented in this encounter Visit Diagnoses Diagnosis Carotid stenosis, bilateral Occlusion and stenosis of multiple and b ilateral precerebral arteries without mention of cerebral infarction documented in this encounter Care Teams Electroencephalograph Technologist Relationship Specialty Start Date End Date Alfred Rios MD PCP - General Family Practice 04/18/15 Alfred Rios MD PCP - Assigned PCP 03/22/15 09/13/18 [address] [place] [address] Alfred Rios MD Assigned PCP 03/22/15 06/01/20 [address] [address] [address] [id number] documented as of this encounter
--- OUTSIDE RECORDS SUMMARY | 2022-04-28 22:56 | XMS_ITS | Encounter Summary ---
:1950 Author Organization [place] Address [facility] [place] [address] Care Team Providers Name Role Phone Alfred Rios MD Primary Care Provider [phone] Alfred Rios MD Unavailable Alfred Rios MD Unavailable Reason for Visit Rehab Therapy Cardiac Therapy (Routine) - Closed Specialty Diagnoses / Procedures Referred By Contact Refer red To Contact CARDIAC REHAB Diagnoses MEdciare//S/P CABG (coronary artery bypass graft) M [facility] Procedures EVALUATION [address] [place] [address] [address] [place] [address] Phone: Fax: Referral ID Status Reason Start Date Expiration Date Visits V isits Requested Authorized [facility] - CR Closed 05/30/2015 07/11/2016 365 365 ([id number]) Encounter Details Date Type Department Care Team Description 07/10/2015 Hospital Encounter [facility] Cardiac Str Cynthia joiner PA and Pulmonary 1, Rh Cardiac Rehab Rehabilitation [facility] [address] [place] [address] [address] [place] [address] Social History Tobacco Use [...] Sig Dispensed Refills Start Date End Date acetaminophen 650 MG Take 650 mg by mouth 100 tablet 0 05/2501/29/2022 TABSIndications: S/P every 6 hours as CABG (coronary artery needed for mild pain bypass graft) or fever aspirin EC 325 MG Take 1 tablet (325 30 tablet 2 05/25/2015 07/31/2015 tabletIndications: S/P mg) by mouth daily CABG (coronary artery bypass graft) atorvastatin (LIPITOR) Take 1 tablet (40 mg) 30 tablet 12 07/31/2015 40 MG by mouth daily tabletIndications: Abnormal cardiovascular stress test metoprolol (LOPRESSOR) Take 1 tablet (25 mg) 60 tablet 2 07/31/2015 25 MG by mouth 2 times tabletIndications: S/P daily CABG (coronary artery bypass graft) nitroglycerin One tablet under the 25 tablet 3 05/06/2015 0 01/31/2016 (NITROSTAT) 0.4 MG SL tongue every 5 tabletIndications: minutes if needed for Abnormal cardiovascular chest pain. November stress test, Status repeat every 5 post coronary angiogram minutes for a maximum of 3 doses in 15 minutes oxyCODONE (ROXICODONE) Take 1-2 tablets 60 tablet 0 015 07/31/2015 5 MG immediate release (5-10 mg) by mouth tabletIndications: S/P every 3 hours as CABG (coronary artery needed for other bypass graft) (moderate pain) senna-docusate Take 1-2 tablets by 15 tablet 0 05/25/2015 0 07/31/2015 (SENOKOT-S;PERICOLACE) mouth 2 times daily 8.6-50 MG per as needed for tabletIndications: S/P constipation CABG (coronary artery bypass graft) traMADol (ULTRAM) 50 MG Take 1 tablet (50 mg) 30 tablet 0 1 08/10/2014 07/31/2015 tabletIndications: S/P by mouth daily as CABG (coronary artery needed bypass graft), Lumbar radiculopathy documented as of this encounter Plan of Treatment Not on filedocumented as of this encounter Visit Diagnoses Not on filedocumented in this encounter Care Teams Head Mva Reactor Operator Relationship Specialty Start Date End Date Alfred Rios MD PCP - General Family Practice 04/18/15 Alfred Rios MD PCP - Assigned PCP 03/22/15 09/13/18 [address] CARL LAWLER [id number] Alfred Rios MD Assigned PCP 03/22/15 06/01/20 [id number] CARL LAWLER [id number] documented as of this encounter
--- OUTSIDE RECORDS SUMMARY | 2022-04-28 22:56 | XMS_ITS | Encounter Summary ---
:1950 Author Organization [place] Address [facility] [place] [address] Care Team Providers Name Role Phone Alfred Rios MD Primary Care Provider [phone] Alfred Rios MD Unavailable Alfred Rios MD Unavailable Reason for Visit Rehab Therapy Cardiac Therapy (Routine) - Closed Specialty Diagnoses / Procedures Referred By Contact Refer red To Contact CARDIAC REHAB Diagnoses MEdciare//S/P CABG (coronary artery bypass graft) M [facility] Procedures EVALUATION [address] [place] [address] [address] [place] [address] Phone: Fax: Referral ID Status Reason Start Date Expiration Date Visits V isits Requested Authorized [facility] - CR Closed 05/30/2015 07/11/2016 365 365 ([id number]) Encounter Details Date Type Department Care Team Description 06/24/[address] [facility] Cardiac Str Cynthia joiner PA and Pulmonary 1, Rh Cardiac Rehab Rehabilitation Ferrera [facility] [id number] [place] [address] [address] [place] [address] Social History Tobacco Use [...] on filedocumented in this encounter Care Teams Instrument Repair Specialist Relationship Specialty Start Date End Date Alfred Rios MD PCP - General Family Practice 04/18/15 Alfred Rios MD PCP - Assigned PCP 03/22/15 09/13/18 [id number] CARL LAWLER [id number] Alfred Rios MD Assigned PCP 03/22/15 06/01/20 [id number] CARL LAWLER [id number] documented as of this encounter
--- OUTSIDE RECORDS SUMMARY | 2022-04-28 22:56 | XMS_ITS | Encounter Summary ---
:1950 Author Organization [place] Address [address] [facility] [place] [address] Care Team Providers Name Role Phone Alfred Rios MD Primary Care Provider [phone] Alfred Rios MD Unavailable Alfred Rios MD Unavailable Encounter Details Date Type Department Care Team Description 07/29/2015 Allied Health/Nurse [facility] Tha Mcgowan Visit Spiritual Care [address] [place] [address] Social History Tobacco Use Types Packs/Day Years Used Date Smoking Tobacco: Former Cigarettes 1 35 Quit : 10/22/1999 Smokeless Tobacco: Never Alcohol Use Standard Drinks/Week Comments Yes 0 (1 standard drink = 0.6 oz pure alcoho l) 1-2 beers daily Sex Assigned at Date Recorded Male 12/31/2020 1:31 PM CDT documented as of this encounter Progress Notes Niecy Mcgowan - 07/30/2015 2:14 PM CST [facility] Progress Note [facility] Cardiac Rehab DATA: Responded to patient's request for service parts driver support. He attended my Healing Process class and is scheduled to finished cardiac rehab this week. INTERVENTION: Provided reflective conversation, exploring the evolution of his emotional process since the onset of his cardiac issues and reinforcing all of the good things he is doing for himself to ensure his ongoing health. Also, invited him to envision his dreams/goals for penitentiary, which is just 1 1/2 yearsaway for him. OUTCOME: Patient reflected on longstanding family of origin issues and the role they have played in his life/character over the years. He reported that he is no longer troubled by the emotional volatility that characterized his early recovery and that he is focused on moving forward with normal life. PLAN: No other needs expressed or assessed at this time. Will continue to be available. Niecy Mcgowan Staff Partition Making Machine Operator Pager [phone] COMMUNICATIONS SWITCH TECHNICIAN documented in this encounter Plan of Treatment Not on filedocumented as of this encounter Visit Diagnoses Not on filedocumented in this encounter Care Teams Missile Mechanic Relationship Specialty Start Date End Date Alfred Rios MD PCP - General Family Practice 04/18/15 Alfred Rios MD PCP - Assigned PCP 03/22/15 09/13/18 [address] CARL LAWLER [id number] Alfred Rios MD Assigned PCP 03/22/15 06/01/20 29681 CARL LAWLER [id number] documented as of this encounter
--- OUTSIDE RECORDS SUMMARY | 2022-04-28 22:56 | XMS_ITS | Encounter Summary ---
:1950 Author Organization [place] Address Count includes the [facility] [place] [address] Care Team Providers Name Role Phone Alfred Rios MD Primary Care Provider [phone] Alfred Rios MD Unavailable Alfred Rios MD Unavailable Reason for Visit Rehab Therapy Cardiac Therapy (Routine) - Closed Specialty Diagnoses / Procedures Referred By Contact Refer red To Contact CARDIAC REHAB Diagnoses MEdciare//S/P CABG (coronary artery bypass graft) M [facility] Procedures EVALUATION [address] [place] [address] [address] [place] [address] Phone: Fax: Referral ID Status Reason Start Date Expiration Date Visits V isits Requested Authorized [facility] - CR Closed 05/30/2015 07/11/2016 365 365 ([id number]) Encounter Details Date Type Department Care Team Description 07/17/2015 Hospital Encounter [facility] Cardiac Str Cynthia joiner PA and Pulmonary 1, Rh Cardiac Rehab Rehabilitation Ferrera [facility] [id number] [place] [address] [address] [place] [address] Social History Tobacco Use [...] - Inhaled Oxygen Concentration - - Weight 74.8 kg (165 lb) 07/17/2015 9:00 AM BENEFITS TECHNICIAN Height 167.6 cm (5' 5.98) 07/17/2015 9:00 AM BENEFITS TECHNICIAN Body Mass Index 26.64 07/17/2015 9:00 AM BENEFITS TECHNICIAN documented in this encounter Medications at Time [...] Lumbar radiculopathy documented as of this encounter Progress Notes Brody Sethi MD - 07/17/2015 9:56 AM CST OUTPATIENT CARDIAC REHAB INDIVIDUALIZED TREATMENT PLAN 90 Day Individualized Treatment Plan Certified through this date: 09/11/15 Name: Anthony Chun Date of : 1950 Date of Treatment: 05/22/15 Age: [age] year old Gender: male Treatment Diagnosis: Coronary Artery Bypass Surgery (x1--DiVinci Method Internal Mammary to LAD) Secondary Treatment Diagnosis: Hospital Location: [facility] Discharge Date: 05/25/15 Outpatient CR Start Date: 05/30/15 Primary Physician: Dr. Buckley Surgeon: Dr. Celis (appt June 10) Website Programmer: Dr. Flowers (Sees in july) Ejection Fraction: 55-60% THR (85% of age predicted max HR): 131.75 Risk Stratification: Low Assessment Assessment: 06/11/15 Pt is progressing quickly with his exercise. CV repsonse has been stable. He hadfollow-up in surgeons office yesterday. All is healing well. He was presrcibed Tramadol for sleep. He reports waking secondary to sciatica pain. No lifting restrictions after . PT will return to work on Jun.18. He is going to have a cortisone shot for his sciatica pain in late Jun. Conitnue with skilled therapy for increased exercise capacity , education and behavior change counseling.06/28/15 1:1 session today. PT feeling quite overloaded with stress in his life. We discussed options for controlling stress. PT opted to meet with Niecy Ramsey for ongoing support. PT eating heart healthy and is e xercising on his off days. His wt however is starting to creep up. His BMI remains 26. Discussed ongoing focus on dietary intake to control his wt. PT cotninues to benefit from OPCR for ongoing progression of MET level to higher levels and support for stress management. 1/6: Patient has been tolerating workloads well as he progresses towards MET level goal up to 7 METs. He has continued to exercise on 3 days outside of rehab on home elliptical without symptoms. He continues to work on stress management, but states this area has been improving - see stress for details. Patient will continue to benefit from skilled therapy for exercise tolerance with progression, along with any further education needed prior to discharge at end of month. Patient and Program Goals Sessions Attended: 20 MET Goal: 5-7 Current MET Level: 6.1 Goal Attend cardiac rehab 3 times per week in order to increase overall endurance so that patient has less SOB with activity and exercise Target Date 07/30/15 Date Met Progress Towards Goal 06/11/15. Pt has attend just 3 sessions. He making rapid progress. States he just feels so good following surgery.He reposts decreased SOB and increased endurance. At home he has been doing some walking, but has increased his PA and reports taking the stairs many, many times daily as he is working on a home improvement project. 06/28/15 PT continues to progress his MET level. A goal of 5-6 METS prior to DC. 07/17: Patient continues to progress in rehab by starting interval training. He is up to 6 METs on leg ergometer and plans to continue to progress until discharge at end of month. Patient feels overall things have been going well during exercise in rehab and at home. Goal Attend nutrition classes to learn about a heart healthy diet and to establish 1-2 dietary changes that patient can make to eat more heart healthy Target Date 08/30/15 Date Met 06/28/15 Progress Towards Goal 06/11/15. Plans to attend nutrition class tomorrow. He is interested in attending others education classes as well. No current diet changes were discussed today. 06/28/15 PT has achieved this goal at this time. Referrals Recommended Referrals recommended: No Comments: Pain Assessment Patient Currently in Pain: No Pain Location: Pain Rating: Pain Description: Pain Description Comment: Additional Pain Locations?: Pain Location 2: Pain Rating 2: Pain Location 3: Pain Rating 3: Pain Comments: RISK FACTORS Hypertension Hypertension: Yes (diagnosed in the last three years) Currently taking antihypertensives? Yes Target outcome goal: BP< 140/90 or <130/80 if DM or CKD Outcome Achieved Hypertension comments: 06/28/15 PTs BP has been controlled and at goal since his initial session. Tobacco Tobacco: Former (Quit > 6 mo ago) Quit date or planned quit date: 10/22/99 Tobacco habit: Cigarettes Tobacco use per day: 1ppd Interventions planned: (no interventions needed) Interventions completed: Stages of change: Maintenance Target outcome goal: Complete Smoking Cessation: Outcome Achieved Tobacco comments: 06/28/15 PT has no issues with abstinance. Stress / Psychosocial Reassessment Psycho-social Assessment: Re-assessment Patient admits to stress: Yes (work stress) Current level of stress: Moderate Coping skills: deep breathing, talking with , visualization, wood working Patient Health Questionnaire-9 (PHQ-9) for Depression: 5-9 Minimal symptoms 10-14 Minor depression 15-19 Major depression, moderately severe > 20 Major depression, severe Completed PHQ-9 Score: 7 [facility] Function and Health Status Survey: A score of 4-5 indicates deficit for each functional health domain Completed Physical Fitness: 3 Feelings: 3 Daily Activities: 3 Social Activities: 1 Pain: 4 Change in Health: 1 Overall Health: 2 Social Support: 1 Quality of Life: 3 Stages of change: Maintenance Psychosocial Interventions planned: Patient to verbalize understanding of negative impact of stress to personal health Psychosocial Interventions completed: Identified 2-3 coping mechanisms for stress, Referred to [facility], Recognizes signs and symptoms of depression Target outcome goal: Assessment for depression using PhQ-9 and [facility] questionnaires. Maximize coping skills and develop positive support system. Outcome Achieved Comments: 06/11/15. NOtes an increase in stress. He explained that his mom had a CVA and has moved from her home to a intermediate. There is some family dispute between patient and his brother. Patient has chosen to walk away from it and leave it to his brother to handle estate. He feels in this situation just letting go will be the healthiest action for juan luis to take. 06/28/15 PT teary eyed throughout the 1;1 consult as we began to discuss stress levels. PT will call Niecy Ramsey Behavioral counselorin Cardiac rehab to meet 1:1. 07/17: Patient states he has attended relaxation class and is practicingvisualization and breathing techniques learned in class, along with wood working that is calming forhim. He feels stress has been better managed lately and trying to set up time to meet with [place] next week. Nutrition Reassessment Dietary assessment: Re-assessment Rate Your Plate - Heart Survey: Scores range from 24 to 72. The higher the score the healthier the eating choices. 55/72 Overweight / Obesity: Yes Age: 65 Weight: 74.844 kg (165 lb) Height: 167.6 cm (5' 5.98) BMI (Calculated): 26.7 Goal weight: 72.576 kg (160 lb) Prescribed diet: NA Follows prescribed diet: (NA) Stages of change to prescribed diet: NA Nutrition interventions planned: Attend Diet Classes Nutrition interventions completed: Initiated plan for weight loss/weight maintenance, Instructed on label reading, Attended diet class (es) Target outcome goal: BMI < 25: Outcome Not Achieved Comments: 06/28/15 PT has attended the nutrition classes. We reviewed his dietary intake score. He reports that his wt is starting to creep up. Discussed BMI and goal of 25. Discused keeping RYP score in the heart healthy zone and exercise consistently. Cholesterol Cholesterol: Labs Available Date: 04/16/15 Total Cholesterol: 200 HDL: 61 LDL: 124 Triglycerides: 74 Target outcome goal: Total cholesterol <150, HDL >40 M >50 F, LDL < 70, Trig < 150: Outcome Not Achieved Comments: 06/28/15 Reviewed CHOL values. PT reports he is now back on Lipitor and is aware to watch for joint pain. Diabetes Management Diabetes Management: NA Hb A1C: Pre-Exercise Blood Sugar: Target outcome goal: Hb A1C < 7: Comments: Inactivity / Aerobic Exercise Reassessment Activity Assessment: Re-assessment Inactivity: Meets Physical Activity Goal, Exercise Program Physical Activity Days per Week: 4-5 Aerobic Exercise Days per Week: 6 Aerobic Exercise Minutes per Day: 20-35 Stages of Change (Physical Activity): Maintenance Stages of Change (Aerobic Activity): Action Target Outcome Goal: Aerobic Activity 30 minutes, 5 days per week = 150 minutes per week: Outcome Achieved Comments: Patient has elliptical and weights at home. INDIVIDUALIZED TREATMENT PLAN Monitored sessions scheduled: 24 Monitored sessions Attended: 20 Exercise Reassessment Met Level Achieved: 6.1 Resting HR: 64 bpm Exercise HR: 124 bpm Post Exercise HR: 67 bpm Resting BP: 118/70 mmHg Exercise BP: 130/70 mmHg Post Exercise BP: 94/64 mmHg Pre SpO2: While Exercising SpO2: Post SpO2: Pre BG (if applicable): Post BG (if applicable): RPE: 6 ECG Rhythm: Sinus rhythm Ectopy: PVCs Symptoms at home: Denies symptoms Symptoms in rehab: Denies symptoms Limitations: does have some sciatic nerve problems Exercise Prescription Type: Aerobic exercise, Resistance training, Flexibility training Mode: Treadmill Frequency: 3 daysweek Duration/Time: 30-45 min Age: 65 THR (85% of age predicted max HR): 131.75 RPE recommended: (4-6 OMNI scale of exertion) Progression: Increase patient by 1/4-1/2 METs per week with normal CV resposnes. Angina with exercise: No Resistance Training: Yes Comments: 06/28/15 Added wts to routine and is now at 8#. Current Home Exercise Type of Exercise: Walking, Eliptical Frequency (days per week): 3 Duration (minutes per session): 20 Recommended Home Exercise Prescription Type of Exercise: Walking, Eliptical Frequency (days per week): 3 Duration (minutes per session): 30-45 min RPE recommended: (4-6 OMNI scale of exertion) Recommended THR: Comments/Exercise plan: He has increased his physical activity 06/28/15 PT encouraged to repeat the work levels that he achieves in CR> Patient Education Education Recommended: Anatomy and Physiology of the Heart, Blood Pressure, Exercise Principles, Medication Overview, Nutrition, Stress Management Education Attended: Medication Overview, Nutrition, Stress Management Physician cosignature/electronic signature indicates approval of this ITP document. I have established, reviewed and made necessary changes to the individualized treatment plan and exercise prescription for this patient. FITS TECHNICIAN documented in this encounter Plan of Treatment Not on filedocumented as of this encounter Visit Diagnoses Not on filedocumented in this encounter Care Teams Mounter Sousaphones Relationship Specialty Start Date End Date Alfred Rios MD PCP - General Family Practice 04/18/15 Alfred Rios MD PCP - Assigned PCP 03/22/15 09/13/18 [address] [place] [address] Alfred Rios MD Assigned PCP 03/22/15 06/01/20 [id number] CARL LAWLER [id number] documented as of this encounter
--- OUTSIDE RECORDS SUMMARY | 2022-04-28 22:56 | XMS_ITS | Encounter Summary ---
:1950 Author Organization [place] Address [facility] [place] [address] Care Team Providers Name Role Phone Alfred Rios MD Primary Care Provider [phone] Alfred Rios MD Unavailable Alfred Rios MD Unavailable Reason for Visit Rehab Therapy Cardiac Therapy (Routine) - Closed Specialty Diagnoses / Procedures Referred By Contact Refer red To Contact CARDIAC REHAB Diagnoses MEdciare//S/P CABG (coronary artery bypass graft) M [facility] Procedures EVALUATION [address] [place] [address] [address] [place] [address] Phone: Fax: Referral ID Status Reason Start Date Expiration Date Visits V isits Requested Authorized [facility] - CR Closed 05/30/2015 07/11/2016 365 365 ([id number]) Encounter Details Date Type Department Care Team Description 07/26/2015 Hospital Encounter [facility] Cardiac Str Cynthia joiner PA and Pulmonary 1, Rh Cardiac Rehab Rehabilitation Ferrera [facility] [id number] [place] [address] [address] [place] [address] Social History Tobacco Use [...] on filedocumented in this encounter Care Teams Cone Classifier Tender Relationship Specialty Start Date End Date Alfred Rios MD PCP - General Family Practice 04/18/15 Alfred Rios MD PCP - Assigned PCP 03/22/15 09/13/18 [id number] CARL LAWLER [id number] Alfred Rios MD Assigned PCP 03/22/15 06/01/20 [id number] CARL LAWLER [id number] documented as of this encounter
--- OUTSIDE RECORDS SUMMARY | 2022-04-28 22:56 | XMS_ITS | Encounter Summary ---
:1950 Author Organization [place] Address [address] [place] [address] Care Team Providers Name Role Phone Alfred Rios MD Primary Care Provider [phone] Alfred Rios MD Unavailable Alfred Rios MD Unavailable Reason for Referral - Closed Specialty Diagnoses / Procedures Referred By Contact Refer red To Contact Diagnoses Chronic ischemic heart disease S/P CABG (coronary artery bypass graft) Alton Rm MD [facility] DAISHA [address] [place] [id number] Referral ID Status Reason Start Date Expiration Date Visits Requ ested Visits Authorized [id number] Closed 07/30/2016 07/30/2017 1 1 CTOR OF MANUFACTURING OPERATIONS Reason for Visit Reason Comments Coronary Artery Disease - Closed Specialty Diagnoses / Procedures Referred By Contact Refer red To Contact Diagnoses Chronic ischemic heart disease Alton Rm MD [facility] DAISHA [address] [place] [id number] Referral ID Status Reason Start Date Expiration Date Visits Requ ested Visits Authorized [id number] Closed 08/11/2015 08/10/2016 1 1 Encounter Details Date Type Department Care Team Description 07/31/2015 Office Visit [facility] Alton Rm, S/P CAB G (coronary artery bypass graft) (Primary Dx); [facility]ERA Chronic ischemic heart disease; [address] [facility] tia hypertension, [facility] [address] VASCULAR CARL [place] [address] [address] [facility] [phone] [place], [place] [address] Social History Tobacco Use Types Packs/Day Years [...] Sign Reading Time Taken Comments Blood Pressure 120/72 07/31/2015 8:55 AM DIRECTOR OF MANUFACTURING OPERATIONS Pulse 72 07/31/2015 8:55 AM DIRECTOR OF MANUFACTURING OPERATIONS Temperature - - Respiratory Rate - - Oxygen Saturation - - Inhaled Oxygen Concentration - - Weight 74.6 kg (164 lb 6.4 oz) 07/31/2015 8:55 AM DIRECTOR OF MANUFACTURING OPERATIONS Height 167.6 cm (5' 6) 07/31/2015 8:55 AM DIRECTOR OF MANUFACTURING OPERATIONS Body Mass Index 26.53 07/31/2015 8:55 AM DIRECTOR OF MANUFACTURING OPERATIONS documented in this encounter Progress Notes Alton Rm MD - 07/31/2015 9:56 AM CST HPI and Plan: See dictation Orders Placed This Encounter Procedures ??? Follow-Up with Surveyor Oil Well Directional Orders Placed This Encounter Medications ??? aspirin 81 MG chewable tablet Sig: Take 1 tablet (81 mg) by mouth daily Dispense: 30 tablet Refill: 12 ??? metoprolol (LOPRESSOR) 25 MG tablet Sig: Take 1 tablet (25 mg) by mouth 2 times daily Dispense: 180 tablet Refill: 3 ??? atorvastatin (LIPITOR) 40 MG tablet Sig: Take 1 tablet (40 mg) by mouth daily Dispense: 90 tablet Refill: 3 Medications Discontinued During This Encounter Medication Reason ??? oxyCODONE (ROXICODONE) 5 MG immediate release tablet Therapy completed ??? senna-docusate (SENOKOT-S;PERICOLACE) 8.6-50 MG per tablet Therapy completed ??? traMADol (ULTRAM) 50 MG tablet Therapy completed ??? aspirin EC 325 MG tablet ??? metoprolol (LOPRESSOR) 25 MG tablet Reorder ??? atorvastatin (LIPITOR) 40 MG tablet Reorder Encounter Diagnoses Name Primary? Chronic ischemic heart disease ??? S/P CABG (coronary artery bypass graft) Yes ??? Essential hypertension, benign CURRENT MEDICATIONS: Current Outpatient Prescriptions Medication Sig Dispense Refill ??? aspirin 81 MG chewable tablet Take 1 tablet (81 mg) by mouth daily 30 tablet 12 ??? metoprolol (LOPRESSOR) 25 MG tablet Take 1 tablet (25 mg) by mouth 2 times daily 180 tablet 3 ??? atorvastatin (LIPITOR) 40 MG tablet Take 1 tablet (40 mg) by mouth daily 90 tablet 3 ??? acetaminophen 650 MG TABS Take 650 mg by mouth every 6 hours as needed for mild pain or fever 100 tablet ??? nitroglycerin (NITROSTAT) 0.4 MG SL tablet One tablet under the tongue every 5 minutes if neededfor chest pain. May repeat every 5 minutes for a maximum of 3 doses in 15 minutes 25 tablet 3 ??? [DISCONTINUED] metoprolol (LOPRESSOR) 25 MG tablet Take 1 tablet (25 mg) by mouth 2 times daily 60 tablet 2 ??? [DISCONTINUED] atorvastatin (LIPITOR) 40 MG tablet Take 1 tablet (40 mg) by mouth daily 30 tablet 12 ALLERGIES Allergies Allergen Reactions ??? Nickel Rash PAST MEDICAL HISTORY: Past Medical History Diagnosis Date ??? Hypertension ??? Hyperlipidemia ??? Coronary artery disease ??? Other chronic pain lower back, rt butock, right leg 2/2 sciatica pain ??? Carotid artery stenosis Right internal PAST SURGICAL HISTORY: Past Surgical History Procedure [...] Coronary artery bypass 05/22/2015 RIVAS to LAD FAMILY HISTORY: Family History Problem Relation Age of Onset ??? Cancer Father kidney ??? Hyperlipidemia Brother ??? Hyperlipidemia Sister ??? Coronary Artery Disease Father 40 ??? Hyperlipidemia Mother ??? Cerebrovascular Accident Brother 66 perioperatively ??? Cerebrovascular Accident Mother SOCIAL HISTORY: History Social History ??? Marital Status: Spouse Name: N/A Number of Children: N/A ??? Years of [...] 55m? No ??? Caffeine Concern No ??? Sleep Concern No ??? Special Diet No ??? Exercise No Elliptycal , weights, cariac rehab ??? Seat Belt Yes Social History Narrative Review of Systems: Skin: Negative Eyes: Positive for glasses ENT: Positive for hearing loss right ear Respiratory: Positive for dyspnea on exertion (improving) Cardiovascular: Tender chest s/p cabg Gastroenterology: Negative Genitourinary: Negative Musculoskeletal: Negative Neurologic: Negative Psychiatric: Negative Heme/Lymph/Imm: Positive for allergies Endocrine: Negative Physical Exam: Vitals: BP 120/72 mmHg Pulse 72 Ht 1.676 m (5' 6) Wt 74.571 kg (164 lb 6.4 oz) BMI 26.55 kg/m2 Constitutional: alert and oriented;well developed;well nourished Skin: warm and dry to [...] [address] [place] [address] CTOR OF MANUFACTURING OPERATIONS Alton Rm MD - 07/31/2015 9:52 AM CST HISTORY OF PRESENT ILLNESS: Mr. Billingsley is a very pleasant 65-year-old gentleman status post robotic-assisted coronary artery bypass with a RIVAS to the LAD in 05/[address] Celis for known left main and ostial LAD disease. He returns in post-hospitalization followup and has been feeling well from a cardiovascular standpoint. He has been exercising regularly with Cardiac Rehab and is set to graduate tomorrow. He has had no recurrent anginal symptoms since his bypass surgery. He denies any chest pain,pressure, shortness of breath, orthopnea or paroxysmal nocturnal dyspnea. Please see my separate note for his full physical examination. IMPRESSION AND PLAN: 1. Coronary artery disease. Mr. Billingsley is now clinically asymptomatic. I have replaced his aspirin 325 mg daily with aspirin 81 mg daily for secondary prevention of underlying coronary artery disease. He will also remain on atorvastatin 40 mg daily, unchanged for secondary prevention. 2. Status post robotic-assisted RIVAS to the LAD in 05/2015. The patient is asymptomatic since he underwent robotic RIVAS implantation to the LAD. As above, he will remain on aspirin and statin lifelong unchanged. 3. Hypertension. His blood pressures were currently well controlled in the clinic, I will continue his metoprolol tartrate 25 mg b.i.d. unchanged at the present time. 4. Dyslipidemia. The patient will remain on lifelong atorvastatin 40 mg daily unchanged for secondary prevention. I will plan to see Mr. Billingsley back in routine clinical followup in 1 year. ALTON RM MD MT: Name: RUSSEL BILLINGSLEY Account: [id number] : 1950 Service Date: 07/31/2015 Document: [id number] CTOR OF MANUFACTURING OPERATIONS documented in this encounter Plan of Treatment Scheduled Referrals Name Type Priority Associated Diagnoses Order S chedule Follow-Up with Referral Routine Chronic ischemic heart Exp ected: 07/30/2016 Surveyor Oil Well Directional disease (Approximate), S/P CABG (coronary Expires: 12/12/2016 artery bypass graft) documented as of this encounter Visit Diagnoses Diagnosis S/P CABG (coronary artery bypass graft) - Primary Postsurgical aortocoronary bypass status Chronic ischemic heart disease Chronic ischemic heart disease, unspecif ied Essential hypertension, benign documented in this encounter Care Teams Water Taxi Driver Relationship Specialty Start Date End Date Alfred Rios MD PCP - General Family Practice 04/18/15 Alfred Rios MD PCP - Assigned PCP 03/22/15 09/13/18 [id number] CARL LAWLER [id number] Alfred Rios MD Assigned PCP 03/22/15 06/01/20 [id number] CARL LAWLER [id number] documented as of this encounter
--- OUTSIDE RECORDS SUMMARY | 2022-04-28 22:56 | XMS_ITS | Encounter Summary ---
:1950 Author Organization [place] Address [facility] [place] [address] Care Team Providers Name Role Phone Alfred Rios MD Primary Care Provider [phone] Alfred Rios MD Unavailable Alfred Rios MD Unavailable Reason for Visit Rehab Therapy Cardiac Therapy (Routine) - Closed Specialty Diagnoses / Procedures Referred By Contact Refer red To Contact CARDIAC REHAB Diagnoses MEdciare//S/P CABG (coronary artery bypass graft) M [facility] Procedures EVALUATION [address] [place] [address] [address] [place] [address] Phone: Fax: Referral ID Status Reason Start Date Expiration Date Visits V isits Requested Authorized [facility] - CR Closed 05/30/2015 07/11/2016 365 365 ([id number]) Encounter Details Date Type Department Care Team Description 07/29/2015 Hospital Encounter [facility] Cardiac Str Cynthia joiner PA and Pulmonary 1, Rh Cardiac Rehab Rehabilitation Ferrera [facility] [address] [place] [address] [address] [place] [address] Social History Tobacco Use [...] on filedocumented in this encounter Care Teams Call Manager Relationship Specialty Start Date End Date Alfred Rios MD PCP - General Family Practice 04/18/15 Alfred Rios MD PCP - Assigned PCP 03/22/15 09/13/18 [id number] CARL LAWLER [id number] Alfred Rios MD Assigned PCP 03/22/15 06/01/20 [id number] CARL LAWLER [id number] documented as of this encounter
--- OUTSIDE RECORDS SUMMARY | 2022-04-28 22:56 | XMS_ITS | Encounter Summary ---
:1950 Author Organization [place] Address [facility] [place] [address] Care Team Providers Name Role Phone Alfred Rios MD Primary Care Provider [phone] Alfred Rios MD Unavailable Alfred Rios MD Unavailable Reason for Visit Rehab Therapy Cardiac Therapy (Routine) - Closed Specialty Diagnoses / Procedures Referred By Contact Refer red To Contact CARDIAC REHAB Diagnoses MEdciare//S/P CABG (coronary artery bypass graft) M [facility] Procedures EVALUATION [address] [place] [address] [address] [place] [address] Phone: Fax: Referral ID Status Reason Start Date Expiration Date Visits V isits Requested Authorized [facility] - CR Closed 05/30/2015 07/11/2016 365 365 ([id number]) Encounter Details Date Type Department Care Team Description 06/21/2015 Hospital Encounter [facility] Cardiac Str Cynthia joiner PA and Pulmonary 1, Rh Cardiac Rehab Rehabilitation Ferrera [facility] [id number] [place] [address] [address] [place] [address] Social History Tobacco Use [...] Lumbar radiculopathy documented as of this encounter Miscellaneous Notes Addendum Note - Dixie Bridges EP - 06/24/2015 10:26 AM CSTEncounter addended by: Dixie Bridges EP on: 06/24/2015 10:26 AM
Documentation filed: Charges VN ON INSPECTOR documented in this encounter Plan of Treatment Not on filedocumented as of this encounter Visit Diagnoses Not on filedocumented in this encounter Care Teams Director Of Vocational Training Relationship Specialty Start Date End Date Alfred Rios MD PCP - General Family Practice 04/18/15 Alfred Rios MD PCP - Assigned PCP 03/22/15 09/13/18 [id number] CARL LAWLER [id number] Alfred Rios MD Assigned PCP 03/22/15 06/01/20 80013 CARL LAWLER [id number] documented as of this encounter
--- OUTSIDE RECORDS SUMMARY | 2022-04-28 22:56 | XMS_ITS | Encounter Summary ---
:1950 Author Organization [place] Address [facility] [place] [address] Care Team Providers Name Role Phone Alfred Rios MD Primary Care Provider [phone] Alfred Rios MD Unavailable Alfred Rios MD Unavailable Reason for Visit Rehab Therapy Cardiac Therapy (Routine) - Closed Specialty Diagnoses / Procedures Referred By Contact Refer red To Contact CARDIAC REHAB Diagnoses MEdciare//S/P CABG (coronary artery bypass graft) M [facility] Procedures EVALUATION [address] [place] [address] [address] [place] [address] Phone: Fax: Referral ID Status Reason Start Date Expiration Date Visits V isits Requested Authorized [facility] - CR Closed 05/30/2015 07/11/2016 365 365 ([id number]) Encounter Details Date Type Department Care Team Description 07/15/2015 Hospital Encounter [facility] Cardiac Str Cynthia joiner PA and Pulmonary 1, Rh Cardiac Rehab Rehabilitation Ferrera [facility] [address] [place] [address] [address] [place] [address] Social History Tobacco Use [...] on filedocumented in this encounter Care Teams Manager Sas Relationship Specialty Start Date End Date Alfred Rios MD PCP - General Family Practice 04/18/15 Alfred Rios MD PCP - Assigned PCP 03/22/15 09/13/18 [id number] CARL LAWLER [id number] Alfred Rios MD Assigned PCP 03/22/15 06/01/20 31822 CARL LAWLER [id number] documented as of this encounter
--- OUTSIDE RECORDS SUMMARY | 2022-04-28 22:56 | XMS_ITS | Encounter Summary ---
:1950 Author Organization [place] Address [facility] [place] [address] Care Team Providers Name Role Phone Alfred Rios MD Primary Care Provider [phone] Alfred Rios MD Unavailable Alfred Rios MD Unavailable Reason for Visit Rehab Therapy Cardiac Therapy (Routine) - Closed Specialty Diagnoses / Procedures Referred By Contact Refer red To Contact CARDIAC REHAB Diagnoses MEdciare//S/P CABG (coronary artery bypass graft) M [facility] Procedures EVALUATION [address] [place] [address] [address] [place] [address] Phone: Fax: Referral ID Status Reason Start Date Expiration Date Visits V isits Requested Authorized [facility] - CR Closed 05/30/2015 07/11/2016 365 365 ([id number]) Encounter Details Date Type Department Care Team Description 06/19/[address] [facility] Cardiac Str Cynthia joiner PA and Pulmonary 1, Rh Cardiac Rehab Rehabilitation Ferrera [facility] [address] [place] [address] [address] [place] [address] Social History Tobacco Use [...] on filedocumented in this encounter Care Teams Exhauster Engineer Relationship Specialty Start Date End Date Alfred Rios MD PCP - General Family Practice 04/18/15 Alfred Rios MD PCP - Assigned PCP 03/22/15 09/13/18 [id number] CARL LAWLER [id number] Alfred Rios MD Assigned PCP 03/22/15 06/01/20 13225 CARL LAWLER [id number] documented as of this encounter
--- OUTSIDE RECORDS SUMMARY | 2022-04-28 22:56 | XMS_ITS | Encounter Summary ---
:1950 Author Organization [place] Address [facility] [place] [address] Care Team Providers Name Role Phone Alfred Rios MD Primary Care Provider [phone] Alfred Rios MD Unavailable Alfred Rios MD Unavailable Reason for Visit Rehab Therapy Cardiac Therapy (Routine) - Closed Specialty Diagnoses / Procedures Referred By Contact Refer red To Contact CARDIAC REHAB Diagnoses MEdciare//S/P CABG (coronary artery bypass graft) M [facility] Procedures EVALUATION [address] [place] [address] [address] [place] [address] Phone: Fax: Referral ID Status Reason Start Date Expiration Date Visits V isits Requested Authorized [facility] - CR Closed 05/30/2015 07/11/2016 365 365 ([id number]) Encounter Details Date Type Department Care Team Description 07/19/2015 Hospital Encounter [facility] Cardiac Str Cynthia joiner PA and Pulmonary 1, Rh Cardiac Rehab Rehabilitation Ferrera [facility] [address] [place] [address] [address] [place] [address] Social History Tobacco Use [...] on filedocumented in this encounter Care Teams Real Estate Manager Relationship Specialty Start Date End Date Alfred Rios MD PCP - General Family Practice 04/18/15 Alfred Rios MD PCP - Assigned PCP 03/22/15 09/13/18 60185 CARL LAWLER [id number] Alfred Rios MD Assigned PCP 03/22/15 06/01/20 80485 CARL LAWLER [id number] documented as of this encounter
--- OUTSIDE RECORDS SUMMARY | 2022-04-28 22:56 | XMS_ITS | Encounter Summary ---
:1950 Author Organization [facility] Address [address] [place] [address] Care Team Providers Name Role Phone Alferd Rios MD Primary Care Provider [phone] Alfred Rios MD Unavailable Alfred Rios MD Unavailable Reason for Visit Reason Comments Pain Rt- Lumbar JEFF (1st) Encounter Details Date Type Department Care Team Description 07/04/2015 Radiology [facility] Carey Dickerson Lumbar rad iculopathy (Primary Dx); Injection Office Pain Management DO Love Lumbosacral spondylosis without myelopat hy Visit [facility] [id number] [place] [address] [place] [address] [place], [place] [phone] [address] (Work) [phone] Social History Tobacco Use Types Packs/Day Years [...] Sign Reading Time Taken Comments Blood Pressure 120/70 07/04/2015 9:56 AM BEADING SAWYER Pulse 61 07/04/2015 9:56 AM BEADING SAWYER Temperature - - Respiratory Rate - - Oxygen Saturation 98% 07/04/2015 9:56 AM BEADING SAWYER Inhaled Oxygen Concentration - - Weight - - Height - - Body Mass Index - - documented in this encounter Patient Instructions Patient InstructionsVasquez Santos RN - 07/04/2015 9:42 AM CST [facility] Procedure Discharge Instructions Today you saw: Dr. Carey Dickerson You had an: interlaminer steroid injection Medications used: Lidocaine Bupivacaine Omnipaque Kenalog Normal saline ??? Be cautious when walking as numbness and/or weakness in the lower extremities may occur up to 6-8 hours after the procedure due to effect of the local anesthetic ??? Do not drive for 6 hours. The effect of the local anesthetic could slow your reflexes. ??? You may resume your regular activities after 24 hours ??? Avoid strenuous activity for the first 24 hours ??? You may shower, however avoid swimming, tub baths or hot tubs for 24 hours following your procedure ??? You may have a mild to moderate increase in pain for several days following the injection. ??? It may take up to 14 days for the steroid medication to start working although you may feel the effect as early as a few days after the procedure. ??? You may use ice packs for 10-15 minutes, 3 to 4 times a day at the injection site for comfort ??? You may use anti-inflammatory medications (such as Ibuprofen or Aleve or Advil) or Tylenol for pain control if necessary ??? If you have diabetes, check your blood sugar more frequently than usual as your blood sugar may be higher than normal for 10-14 days following a steroid injection. Contact your doctor who manages your diabetes if your blood sugar is higher than usual ??? If you experience any of the following, call the pain center nursing line during work hours at [phone] or on-call physician after hours at [phone]: -Fever over 100 degree F -Swelling, bleeding, redness, drainage, warmth at the injection site -Progressive weakness or numbness in your legs or arms -Loss of bowel or bladder function -Unusual headache that is not relieved by Tylenol -Unusual new onset of pain that is not improving ?? Phone #s: Appointment line: [phone]; Nurse line: [phone] ING SAWYER documented in this encounter Progress Notes Carey Dickerson DO - 07/04/2015 9:41 AM CST [facility] - Procedure Note Date of Visit: 07/04/2015 Procedure performed: Lumbar L5-S1 interlaminar epidural steroid injection Diagnosis: Lumbar spondylosis; Lumbar radiculitis/radiculopathy Typewriter Ribbon Winder: Carey Dickerson DO Anesthesia: none Indications: Anthony Chun is a 65 year old male who is seen at the request of Dr. Rios for a lumbar epidural steroid injection. The patient describes low back pain that radiates down the posterioraspect of the right thigh. The patient has been exhibiting symptoms consistent with lumbar intraspinal inflammation and radiculopathy. Symptoms have been persistent, disabling, and intermittently severe. The patient reports minimal improvement with conservative treatment, including medications. . MRI was done on 05/02/15 which showed FINDINGS: The report is dictated assuming five lumbar-type vertebral bodies. Sagittal images demonstrate normal vertebral body height. Bone marrow signal is unremarkable. Tip of the conus medullaris and cauda equina are unremarkable. T12-L1: Very mild disc bulge without stenosis. L1-L2: Mild disc bulge and prominent facet hypertrophy result in moderate central stenosis. Neural foramen are patent. L2-L3: Prominent facet hypertrophy. Moderate disc bulge. Moderate central stenosis. Moderate left and mild right foraminal stenosis. L3-L4: Prominent facet hypertrophy. Moderate disc bulge. Moderate if not moderate to severe central stenosis. Mild to moderate bilateral foraminal stenosis. L4-L5: Large right central disc extrusion posteriorly displaces and likely compresses the descending right L5 nerve root. Moderate to severe central stenosis. Moderate bilateral foraminal stenosis. L5-S1: Left greater than right facet hypertrophy. Broad-based disc bulge. No central stenosis. Mild to moderate left and mild right foraminal stenosis. Paraspinous soft tissues: Unremarkable. IMPRESSION: 1. The most prominent finding is that of a large right central disc extrusion at L4-L5 that posteriorly displaces and compresses the descending right L5 nerve root. Moderate to severe central stenosis and moderate bilateral foraminal stenosis. 2. There is moderate central stenosis at L1-L2, and L2-L3. Moderate if not moderate to severe central stenosis at L3-L4. 3. There is moderate left and mild right foraminal stenosis at L2-L3, mild to moderate bilateral foraminal stenosis at L3-L4, and mild to moderate left and mild right foraminal stenosis at L5-S1. Allergies: Allergies Allergen Reactions ??? Nickel Rash Vitals: BP 110/70 mmHg Pulse 72 SpO2 98% Review of Systems: The patient denies recent fever, chills, illness, use of antibiotics or anticoagulants. All other 10-point review of systems negative. Procedure: The procedure and risks were explained, and informed written consent was obtained from the patient. Risks include but are not limited to: infection, bleeding, increased pain, and damage to soft tissue, nerve, muscle, and vasculature structures. After getting informed consent, patient was brought into the procedure suite and was placed in a prone position on the procedure table. A Pause forthe Cause was performed. Patient was prepped and draped in sterile fashion. The L5-S1 interspace was identified with use of fluoroscopy in AP view. A 25- gauge, 1.5 inch needle was used to anesthetize the skin and subcutaneous tissue entry site with a total of 2 ml of 1% lidocaine. Under fluoroscopic visualization, a 22-gauge, 4.5 inch Tuohy epidural needle was slowly advanced towards the epidural space a few millimeters right of midline. The latter part of the needle advancement was guided with fluoroscopy in the lateral view. The epidural space was identified using loss ofresistance technique. After negative aspiration for heme and cerebrospinal fluid, a total of 1.5 mL of non-ionic contrast was injected to confirm needle placement. Epidurogram confirmed spread within the posterior epidural space. 2 ml of 40mg/ml of triamcinolone, 2 ml of 1% lidocaine, and 1 ml of preservative free saline was injected. The needle was removed. Images were saved to PACS. The patient tolerated the procedure well, and there was no evidence of procedural complications. No new sensory or motor deficits were noted following the procedure. The patient was stable and able to ambulate on discharge home. Post-procedure instructions were provided. Pre-procedure pain score: 07/21 Post-procedure pain score: 09/18 Assessment/Plan: Anthony Chun is a 65 year old male s/p lumbar interlaminar epidural steroid injection today for lumbar spondylosis and radiculitis/radiculopathy. 1. Following today's procedure, the patient was advised to contact the [facility] [place] for any of the following: Fever, chills, or night sweats New onset of pain, numbness, or weakness Any questions/concerns regarding the procedure If unable to contact the Pain Center, the patient was instructed to go to a local Emergency Room forany complications. 2. The patient will receive a follow-up call in 1 week. 3. Follow-up with Dr. Rios in 2 weeks for post-procedure evaluation. Carey Dickerson DO [facility] ING SAWYER documented in this encounter Nursing Notes Vasquez Santos RN - 07/04/2015 10:36 AM CST Discharge Information IV Discontiued Time: NA Amount of Fluid Infused: NA Discharge Criteria = When patient returns to baseline or as per MD order Consciousness: Pt is fully awake Circulation: BP +/- 20% of pre-procedure level Respiration: Patient is able to breathe deeply O2 Sat: Patient is able to maintain O2 Sat >92% on room air Activity: Moves 4 extremities on command Ambulation: Patient is able to stand and walk or stand and pivot into wheelchair Dressing: Clean/dry or No Dressing Notes: Discharge instructions and AVS given to patient Patient meets criteria for discharge? YES Admitted to PCU? No Responsible adult present to accompany patient home? Yes Signature/Title: VASQUEZ SANTOS RN Helper Marble Finisher [facility] ING SAWYER Giovanna Castrejon CMA - 07/04/2015 9:19 AM CST Injection intake: If this procedure is requiring IV sedation has patient been NPO for 6 Hours? NA Is patient on coumadin, plavix or other prescribed blood thinner? No If patient is on coumadin was it held for 5 days? NA If patient is on plavix was it held for 7 days? NA Does patient take aspirin? Yes - ASA If this is for a cervical procedure and patient is on aspirin has it been held for 6 days? NA Any allergies to contrast dye, iodine, steroid and/or numbing medications? NO Is patient currently taking antibiotics or have an active infection? 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 Not Applicable Are the vital signs normal? Yes Chief Complaint Patient presents with ??? Pain Rt- Lumbar JEFF (1st) Initial BP 110/70 mmHg Pulse 72 SpO2 98% Estimated body mass index is 26.81 kg/(m^2) as calculated from the following: Height as of 06/28/15: 1.676 m (5' 5.98). Weight as of 06/28/15: 75.297 kg (166 lb). BP completed using cuff size: regular Giovanna Castrejon CMA ([facility]) [facility] ING SAWYER documented in this encounter Plan of Treatment Not on filedocumented as of this encounter Visit Diagnoses Diagnosis Lumbar radiculopathy - Primary Thoracic or lumbosacral neuritis or radi culitis, unspecified Lumbosacral spondylosis without myelopat hy documented in this encounter Care Teams Flight Control Tower Operator Relationship Specialty Start Date End Date Alfred Rios MD PCP - General Family Practice 04/18/15 Alfred Rios MD PCP - Assigned PCP 03/22/15 09/13/18 [id number] CARL LAWLER [id number] Alfred Rios MD Assigned PCP 03/22/15 06/01/20 39513 CARL LAWLER [id number] documented as of this encounter
--- OUTSIDE RECORDS SUMMARY | 2022-04-28 22:56 | XMS_ITS | Encounter Summary ---
:1950 Author Organization [place] Address [facility] [place] [address] Care Team Providers Name Role Phone Alfred Rios MD Primary Care Provider [phone] Alfred Rios MD Unavailable Alfred Rios MD Unavailable Reason for Visit Rehab Therapy Cardiac Therapy (Routine) - Closed Specialty Diagnoses / Procedures Referred By Contact Refer red To Contact CARDIAC REHAB Diagnoses MEdciare//S/P CABG (coronary artery bypass graft) M [facility] Procedures EVALUATION [address] [place] [address] [address] [place] [address] Phone: Fax: Referral ID Status Reason Start Date Expiration Date Visits V isits Requested Authorized [facility] - CR Closed 05/30/2015 07/11/2016 365 365 ([id number]) Encounter Details Date Type Department Care Team Description 07/04/2015 Hospital Encounter [facility] Cardiac Str Cynthia joiner PA and Pulmonary 1, Rh Cardiac Rehab Rehabilitation Ferrera [facility] [address] [place] [address] [address] [place] [address] Social History Tobacco Use [...] on filedocumented in this encounter Care Teams Clinical Pharmacy Specialist Relationship Specialty Start Date End Date Alfred Rios MD PCP - General Family Practice 04/18/15 lAfred Rios MD PCP - Assigned PCP 03/22/15 09/13/18 02609 CARL LAWLER [id number] Alfred Rios MD Assigned PCP 03/22/15 06/01/20 [id number] CARL LAWLER [id number] documented as of this encounter
--- OUTSIDE RECORDS SUMMARY | 2022-04-28 22:56 | XMS_ITS | Encounter Summary ---
:1950 Author Organization [place] Address [facility] [place] [address] Care Team Providers Name Role Phone Alfred Rios MD Primary Care Provider [phone] Alfred Rios MD Unavailable Alfred Rios MD Unavailable Reason for Visit Rehab Therapy Cardiac Therapy (Routine) - Closed Specialty Diagnoses / Procedures Referred By Contact Refer red To Contact CARDIAC REHAB Diagnoses MEdciare//S/P CABG (coronary artery bypass graft) M [facility] Procedures EVALUATION [address] [place] [address] [address] [place] [address] Phone: Fax: Referral ID Status Reason Start Date Expiration Date Visits V isits Requested Authorized [facility] - CR Closed 05/30/2015 07/11/2016 365 365 ([id number]) Encounter Details Date Type Department Care Team Description 06/17/2015 Hospital Encounter [facility] Cardiac Str Cynthia joiner PA and Pulmonary 1, Rh Cardiac Rehab Rehabilitation Ferrera [facility] [address] [place] [address] [address] [place] [address] Social History Tobacco Use [...] on filedocumented in this encounter Care Teams Stock Control Clerk Relationship Specialty Start Date End Date Alfred Rios MD PCP - General Family Practice 04/18/15 Alfred Rios MD PCP - Assigned PCP 03/22/15 09/13/18 [id number] CARL LAWLER [id number] Alfred Rios MD Assigned PCP 03/22/15 06/01/20 [id number] CARL LAWLER [id number] documented as of this encounter
--- OUTSIDE RECORDS SUMMARY | 2022-04-28 22:56 | XMS_ITS | Encounter Summary ---
:1950 Author Organization [place] Address [facility] [place] [address] Care Team Providers Name Role Phone Alfred Rios MD Primary Care Provider [phone] Alfred Rios MD Unavailable Alfred Rios MD Unavailable Reason for Visit Rehab Therapy Cardiac Therapy (Routine) - Closed Specialty Diagnoses / Procedures Referred By Contact Refer red To Contact CARDIAC REHAB Diagnoses MEdciare//S/P CABG (coronary artery bypass graft) M [facility] Procedures EVALUATION [address] [place] [address] [address] [place] [address] Phone: Fax: Referral ID Status Reason Start Date Expiration Date Visits V isits Requested Authorized [facility] - CR Closed 05/30/2015 07/11/2016 365 365 ([id number]) Encounter Details Date Type Department Care Team Description 07/24/2015 Hospital Encounter [facility] Cardiac Str Cynthia joiner PA and Pulmonary 1, Rh Cardiac Rehab Rehabilitation Ferrera [facility] [address] [place] [address] [address] [place] [address] Social History Tobacco Use [...] on filedocumented in this encounter Care Teams Tower Climber Relationship Specialty Start Date End Date Alfred Rios MD PCP - General Family Practice 04/18/15 Alfred Rios MD PCP - Assigned PCP 03/22/15 09/13/18 [id number] CARL LAWLER [id number] Alfred Rios MD Assigned PCP 03/22/15 06/01/20 [id number] CARL LAWLER [id number] documented as of this encounter
--- OUTSIDE RECORDS SUMMARY | 2022-04-28 22:56 | XMS_ITS | Encounter Summary ---
:1950 Author Organization [place] Address [facility] [place] [address] Care Team Providers Name Role Phone Alfred Rios MD Primary Care Provider [phone] Alfred Rios MD Unavailable Alfred Rios MD Unavailable Reason for Visit Rehab Therapy Cardiac Therapy (Routine) - Closed Specialty Diagnoses / Procedures Referred By Contact Refer red To Contact CARDIAC REHAB Diagnoses MEdciare//S/P CABG (coronary artery bypass graft) M [facility] Procedures EVALUATION [address] [place] [address] [address] [place] [address] Phone: Fax: Referral ID Status Reason Start Date Expiration Date Visits V isits Requested Authorized [facility] - CR Closed 05/30/2015 07/11/2016 365 365 ([id number]) Encounter Details Date Type Department Care Team Description 07/11/2015 Hospital Encounter [facility] Cardiac Str Cynthia joiner PA and Pulmonary 2, Rh Cardiac Rehab Rehabilitation Ferrera [facility] [address] [place] [address] [address] [place] [address] Social History Tobacco Use [...] on filedocumented in this encounter Care Teams Sewing Line Baler Relationship Specialty Start Date End Date Alfred Rios MD PCP - General Family Practice 04/18/15 Alfred Rios MD PCP - Assigned PCP 03/22/15 09/13/18 [id number] CARL LAWLER [id number] Alfred Rios MD Assigned PCP 03/22/15 06/01/20 82716 CARL LAWLER [id number] documented as of this encounter
--- OUTSIDE RECORDS SUMMARY | 2022-04-28 22:56 | XMS_ITS | Encounter Summary ---
:1950 Author Organization [place] Address [facility] [place] [address] Care Team Providers Name Role Phone Alfred Rios MD Primary Care Provider [phone] Alfred Rios MD Unavailable Alfred Rios MD Unavailable Reason for Visit Rehab Therapy Cardiac Therapy (Routine) - Closed Specialty Diagnoses / Procedures Referred By Contact Refer red To Contact CARDIAC REHAB Diagnoses MEdciare//S/P CABG (coronary artery bypass graft) M [facility] Procedures EVALUATION [address] [place] [address] [address] [place] [address] Phone: Fax: Referral ID Status Reason Start Date Expiration Date Visits V isits Requested Authorized [facility] - [facility] Closed 05/30/2015 07/11/2016 365 365 ([id number]) Encounter Details Date Type Department Care Team Description 06/14/2015 Hospital Encounter [facility] Cardiac Str Cynthia joiner PA and Pulmonary 1, Rh Cardiac Rehab Rehabilitation Ferrera [facility] [id number] [place] [address] [address] [place] [address] Social History Tobacco Use [...] on filedocumented in this encounter Care Teams Software Recruiter Relationship Specialty Start Date End Date Alfred Rios MD PCP - General Family Practice 04/18/15 Alfred Rios MD PCP - Assigned PCP 03/22/15 09/13/18 [id number] CARL LAWLER [id number] Alfred Rios MD Assigned PCP 03/22/15 06/01/20 [id number] CARL LAWLER [id number] documented as of this encounter
--- OUTSIDE RECORDS SUMMARY | 2022-04-28 22:56 | XMS_ITS | Encounter Summary ---
:1950 Author Organization [place] Address [facility] [place] [address] Care Team Providers Name Role Phone Alfred Rios MD Primary Care Provider [phone] Alfred Rios MD Unavailable Alfred Rios MD Unavailable Reason for Visit Rehab Therapy Cardiac Therapy (Routine) - Closed Specialty Diagnoses / Procedures Referred By Contact Refer red To Contact CARDIAC REHAB Diagnoses MEdciare//S/P CABG (coronary artery bypass graft) M [facility] Procedures EVALUATION [address] [place] [address] [address] [place] [address] Phone: Fax: Referral ID Status Reason Start Date Expiration Date Visits V isits Requested Authorized [facility] - CR Closed 05/30/2015 07/11/2016 365 365 ([id number]) Encounter Details Date Type Department Care Team Description 06/28/2015 Hospital Encounter [facility] Cardiac Str Cynthia joiner PA and Pulmonary 1, Rh Cardiac Rehab Rehabilitation Ferrera [facility] [address] [place] [address] [address] [place] [address] Social History Tobacco Use [...] - Inhaled Oxygen Concentration - - Weight 75.3 kg (166 lb) 06/28/2015 10:00 AM MARBLE SETTER Height 167.6 cm (5' 5.98) 06/28/2015 10:00 AM MARBLE SETTER Body Mass Index 26.81 06/28/2015 10:00 AM MARBLE SETTER documented in this encounter Medications at Time [...] encounter Progress Notes Brody Sethi MD - 06/28/2015 11:10 AM CST OUTPATIENT CARDIAC REHAB INDIVIDUALIZED TREATMENT PLAN 60 Day Individualized Treatment Plan Certified through this date: 08/14/15 Name: Anthony Chun Date of : 1950 Date of Treatment: 05/22/15 Age: [age] year old Gender: male Treatment Diagnosis: Coronary Artery Bypass Surgery (x1--DiVinci Method Internal Mammary to LAD) Secondary Treatment Diagnosis: Hospital Location: [facility] Discharge Date: 05/25/15 Outpatient CR Start Date: 05/30/15 Primary Physician: Dr. Buckley Surgeon: Dr. Celis (appt June 10) Umbrella Tipper Hand: Dr. Flowers (Sees in july) Ejection Fraction: [...] higher levels and support for stress management. Patient and Program Goals Sessions Attended: 12 MET Goal: 5-7 Current MET Level: 4.6 Goal Attend cardiac rehab 3 times per [...] A goal of 5-6 METS prior to DC Goal Attend nutrition classes to learn about [...] has achieved this goal at this time. Pain Assessment Denies pain. RISK FACTORS Hypertension Hypertension: Yes (diagnosed in [...] Moderate Coping skills: deep breathing, talking with Patient Health Questionnaire-9 (PHQ-9) for Depression: 5-9 Minimal symptoms 10-14 Minor depression 15-19 Major depression, moderately severe > 20 Major depression, severe Completed PHQ-9 Score: 7 [facility] Function and Health Status Survey: A [...] 2-3 coping mechanisms for stress, Referred to Counseling Center/Comparison Shopper, Recognizes signs and symptoms of depression Target outcome goal: Assessment for depression using PhQ-9 and [facility] COOP questionnaires. Maximize coping skills and develop positive support system. Outcome Achieved Comments: 06/11/15. NOtes an increase in stress. He explained that his mom had a CVA and has moved from her home to a [facility]. There is some family dispute between patient [...] Behavioral counselorin Cardiac rehab to meet 1:1. Nutrition Reassessment Dietary assessment: Re-assessment Rate Your Plate - Heart Survey: Scores range from 24 to 72. The higher the score the healthier the eating choices. 55/72 Overweight / Obesity: Yes Age: 65 Weight: 75.297 kg (166 lb) Height: 167.6 cm (5' 5.98) BMI (Calculated): 26.86 Goal weight: 72.576 kg (160 lb) Prescribed [...] Activity Assessment: Re-assessment Inactivity: Meets Physical Activity Goal Physical Activity Days per Week: 4-5 Aerobic Exercise Days per Week: 0 Aerobic Exercise Minutes per Day: 0 Stages of Change (Physical Activity): Maintenance Stages of Change (Aerobic Activity): Preparation Target Outcome Goal: Aerobic Activity 30 minutes, 5 days per week = 150 minutes per week: Outcome Achieved Comments: INDIVIDUALIZED TREATMENT PLAN Monitored sessions scheduled: 24 Monitored sessions Attended: 12 Exercise Reassessment Met Level Achieved: 4.6 Resting HR: 62 bpm Exercise HR: 108 bpm Post Exercise HR: 63 bpm Resting BP: 108/60 mmHg Exercise BP: 120/60 mmHg Post Exercise BP: 90/60 mmHg RPE: 5 ECG Rhythm: Sinus rhythm Ectopy: None Symptoms at home: Denies symptoms Symptoms in [...] 8#. Current Home Exercise Type of Exercise: Walking Frequency (days per week): 1 Duration (minutes per session): 20 Recommended Home Exercise Prescription Type of Exercise: Walking Frequency (days per week): 2-3 Duration (minutes per session): 30-45 min RPE [...] plan and exercise prescription for this patient. LE SETTER documented in this encounter Miscellaneous Notes Addendum Note - Arlene Bolton EP - 07/02/2015 5:19 PM CSTEncounter addended by: Arlene Bolton EP on: 07/02/2015 5:19 PM
Documentation filed: Charges VN LE SETTER documented in this encounter Plan of Treatment Not on filedocumented as of this encounter Visit Diagnoses Not on filedocumented in this encounter Care Teams Intellectual Property Counsel Relationship Specialty Start Date End Date Alfred Rios MD PCP - General Family Practice 04/18/15 Alfred Rios MD PCP - Assigned PCP 03/22/15 09/13/18 [id number] CARL LAWLER [id number] Alfred Rios MD Assigned PCP 03/22/15 06/01/20 [id number] CARL LAWLER [id number] documented as of this encounter
--- OUTSIDE RECORDS SUMMARY | 2022-04-28 22:56 | XMS_ITS | Encounter Summary ---
:1950 Author Organization [place] Address [facility] [place] [address] Care Team Providers Name Role Phone Alfred Rios MD Primary Care Provider [phone] Alfred Rios MD Unavailable Alfred Rios MD Unavailable Reason for Visit Rehab Therapy Cardiac Therapy (Routine) - Closed Specialty Diagnoses / Procedures Referred By Contact Refer red To Contact CARDIAC REHAB Diagnoses MEdciare//S/P CABG (coronary artery bypass graft) M [facility] Procedures EVALUATION [address] [place] [address] [address] [place] [address] Phone: Fax: Referral ID Status Reason Start Date Expiration Date Visits V isits Requested Authorized [facility] 234 [facility] - CR Closed 05/30/2015 07/11/2016 365 365 ([id number]) Encounter Details Date Type Department Care Team Description 07/22/2015 Hospital Encounter [facility] Cardiac Str Cynthia joiner PA and Pulmonary 1, Rh Cardiac Rehab Rehabilitation Ferrera [facility] [address] [place] [address] [address] [place] [address] Social History Tobacco Use [...] on filedocumented in this encounter Care Teams Cad Application Support Specialist Relationship Specialty Start Date End Date Alfred Rios MD PCP - General Family Practice 04/18/15 Alfred Rios MD PCP - Assigned PCP 03/22/15 09/13/18 [id number] CARL LAWLER [id number] Alfred Rios MD Assigned PCP 03/22/15 06/01/20 [id number] CARL LAWLER [id number] documented as of this encounter
--- OUTSIDE RECORDS SUMMARY | 2022-04-28 22:56 | XMS_ITS | Encounter Summary ---
:1950 Author Organization [place] Address [facility] [place] [address] Care Team Providers Name Role Phone Alfred Rios MD Primary Care Provider [phone] Alferd Rios MD Unavailable Alfred Rios MD Unavailable Reason for Visit Rehab Therapy Cardiac Therapy (Routine) - Closed Specialty Diagnoses / Procedures Referred By Contact Refer red To Contact CARDIAC REHAB Diagnoses MEdciare//S/P CABG (coronary artery bypass graft) M [facility] Procedures EVALUATION [address] [place] [address] [address] [place] [address] Phone: Fax: Referral ID Status Reason Start Date Expiration Date Visits V isits Requested Authorized [facility] - CR Closed 05/30/2015 07/11/2016 365 365 ([id number]) Encounter Details Date Type Department Care Team Description 07/08/2015 Hospital Encounter [facility] Cardiac Str Cynthia joiner PA and Pulmonary 1, Rh Cardiac Rehab Rehabilitation Ferrera [facility] [address] [place] [address] [address] [place] [address] Social History Tobacco Use [...] on filedocumented in this encounter Care Teams Ceramic Tile Mechanic Relationship Specialty Start Date End Date Alfred Rios MD PCP - General Family Practice 04/18/15 Alfred Rios MD PCP - Assigned PCP 03/22/15 09/13/18 [id number] CARL LAWLER [id number] Alfred Rios MD Assigned PCP 03/22/15 06/01/20 [id number] CARL LAWLER [id number] documented as of this encounter
--- OUTSIDE RECORDS SUMMARY | 2022-04-28 22:56 | XMS_ITS | Encounter Summary ---
:1950 Author Organization [place] Address [facility] [place] [address] Care Team Providers Name Role Phone Alfred Rios MD Primary Care Provider [phone] Alfred Rios MD Unavailable Alfred Rios MD Unavailable Encounter Details Date Type Department Care Team Description 07/04/2015 Radiant Appointment [facility] Carey Dickerson degenerative disc disease; Clinic [facility] Lumbar facet arthropathy Pain Management [address] [facility] [address] [place] [address] [place], [place] [phone] [address] (Work) [phone] Social History Tobacco Use Types Packs/Day Years [...] Name Priority Date/Time Associated Diagnosis Comme nts XR TRANSLAMINAR Routine 07/04/2015 9:54 AM Multilevel Result s for this EPIDURAL LUMBAR INJ PLACEMENT DIRECTOR degenerative disc pro cedure are in INCL IMAGING disease the results Lumbar facet section. arthropathy documented in this encounter Results XR Translaminar Epidural Lumbar Inj (07/04/2015 9:54 AM PLACEMENT DIRECTOR) Specimen (Source) Anatomical Location Collection Method / Collectio n Time Received Time / Laterality Volume Narrative Ludy Reed - 07/04/2015 9:56 AM PLACEMENT DIRECTOR This exam was marked as non-reportable because it will not be read by a radiologist or a [place] non-radiologis t provider. Carey Dickerson DO IMG DIAGNOSTIC IMAGING ORDER NIRU documented in this encounter Visit Diagnoses Diagnosis Multilevel degenerative disc disease Degeneration of intervertebral disc, sit e unspecified Lumbar facet arthropathy Lumbosacral spondylosis without myelopat hy documented in this encounter Administered Medications Inactive Administered Medications - up to 3 most recent administrations Medication Order MAR Action Action Date Dose Rate Site iohexol (OMNIPAQUE) 300 mg/mL Given by Other 07/04/2015 9:45 AM PLACEMENT DIRECTOR 1 .5 mLs injection 10 mL 10 mL, EPIDURAL, ONCE, On Lety 07/04/15 at 0930, For 1 dose documented in this encounter Care Teams Christian Counselor Relationship Specialty Start Date End Date Alfred Rios MD PCP - General Family Practice 04/18/15 Alfred Rios MD PCP - Assigned PCP 03/22/15 09/13/18 [id number] CARL LAWLER [id number] Alfred Rios MD Assigned PCP 03/22/15 06/01/20 [id number] CARL LAWLER [id number] documented as of this encounter
--- OUTSIDE RECORDS SUMMARY | 2022-04-28 22:56 | XMS_ITS | Encounter Summary ---
:1950 Author Organization [place] Address [facility] [place] [address] Care Team Providers Name Role Phone Alfred Rios MD Primary Care Provider [phone] Alfred Rios MD Unavailable Alfred Rios MD Unavailable Reason for Visit Reason Onset Date Comments Previsit 07/29/2015 chart prep for OV on 07/31/[address] Flowers Encounter Details Date Type Department Care Team Description 07/29/2015 PRE VISIT [facility] Sofía Webster , Previsit (chart prep Clinic [facility] for OV on 07/31/[address] [place] [address] Flowers) [facility] [address] [place] [address] Social History Tobacco Use Types Packs/Day Years Used Date Smoking Tobacco: Former Cigarettes 1 35 Quit : 10/22/1999 Smokeless Tobacco: Never Alcohol Use Standard Drinks/Week Comments Yes 0 (1 standard drink = 0.6 oz pure alcoho l) 1-2 beers daily Sex Assigned at Date Recorded Male 12/31/2020 1:31 PM CDT documented as of this encounter Miscellaneous Notes Telephone Encounter - Sofía Webster - 07/29/2015 9:44 AM CST Chart prep updated for OV on 07/31/[address] Flowers. Records in [facility]. E FASTENERS INSPECTOR documented in this encounter Plan of Treatment Not on filedocumented as of this encounter Visit Diagnoses Not on filedocumented in this encounter Care Teams Preschool Teacher Relationship Specialty Start Date End Date Alfred Rios MD PCP - General Family Practice 04/18/15 Alfred Rios MD PCP - Assigned PCP 03/22/15 09/13/18 [id number] CARL LAWLER [id number] Alfred Rios MD Assigned PCP 03/22/15 06/01/20 [id number] CARL LAWLER [id number] documented as of this encounter
--- OUTSIDE RECORDS SUMMARY | 2022-04-28 22:56 | XMS_ITS | Encounter Summary ---
:1950 Author Organization [place] Address [facility] [place] [address] Care Team Providers Name Role Phone Alfred Rios MD Primary Care Provider [phone] Alfred Rios MD Unavailable Alfred Rios MD Unavailable Reason for Visit Rehab Therapy Cardiac Therapy (Routine) - Closed Specialty Diagnoses / Procedures Referred By Contact Refer red To Contact CARDIAC REHAB Diagnoses MEdciare//S/P CABG (coronary artery bypass graft) M [facility] Procedures EVALUATION [address] [place] [address] [address] [place] [address] Phone: Fax: Referral ID Status Reason Start Date Expiration Date Visits V isits Requested Authorized [facility] - CR Closed 05/30/2015 07/11/2016 365 365 ([id number]) Encounter Details Date Type Department Care Team Description 07/03/2015 Hospital Encounter [facility] Cardiac Str Cynthia joiner PA and Pulmonary 1, Rh Cardiac Rehab Rehabilitation Ferrera [facility] [address] [place] [address] [address] [place] [address] Social History Tobacco Use [...] on filedocumented in this encounter Care Teams Riveter Helper Relationship Specialty Start Date End Date Alfred Rios MD PCP - General Family Practice 04/18/15 Alfred Rios MD PCP - Assigned PCP 03/22/15 09/13/18 [id number] CARL LAWLER [id number] Alfred Rios MD Assigned PCP 03/22/15 06/01/20 [id number] CARL LAWLER [id number] documented as of this encounter
--- OUTSIDE RECORDS SUMMARY | 2022-04-28 22:56 | XMS_ITS | Encounter Summary ---
:1950 Author Organization [place] Address [address] [place] [address]. [place] [address] Care Team Providers Name Role Phone Alfred Rios MD Primary Care Provider [phone] Alfred Rios MD Unavailable Alfred Rios MD Unavailable Reason for Visit Reason Onset Date Comments Panel Management 12/24/2015 Encounter Details Date Type Department Care Team Description 12/24/2015 Telephone [facility] Alfred Rios Panel Management Yvonne CABRERA [address] [place] [address] [place] [address] [place] [address] [phone] Social History Tobacco Use Types Packs/Day Years Used Date Smoking Tobacco: Former Cigarettes 1 35 Quit : 10/22/1999 Smokeless Tobacco: Never Alcohol Use Standard Drinks/Week Comments Yes 0 (1 standard drink = 0.6 oz pure alcoho l) 1-2 beers daily Sex Assigned at Date Recorded Male 12/31/2020 1:31 PM CDT documented as of this encounter Miscellaneous Notes Telephone Encounter - Gill Aragon, [facility] - 12/24/2015 8:53 AM CDT Panel Management Review Patient has the following on his problem list: Hypertension Last three blood pressure readings: BP Readings from Last 3 Encounters: 07/31/15 120/72 07/04/15 120/70 06/10/15 126/66 Blood pressure: Passed HTN Guidelines: Age 18-59 BP range: Less than 140/90 Age 60-85 with Diabetes: Less than 140/90 Age 60-85 without Diabetes: less than 150/90 Composite cancer screening Chart review shows that this patient is due/due soon for the following Colonoscopy Summary: Patient is due/failing the following: Hep c screening, COLONOSCOPY and FIT Action needed: Patient needs non-fasting lab only appointment and Patient needs referral/order: colonoscopy Type of outreach: Sent Fit with Friends message. Questions for provider review: None Gill Aragon CMA Chart routed to Care Team . documented in this encounter Plan of Treatment Not on filedocumented as of this encounter Visit Diagnoses Not on filedocumented in this encounter Care Teams Epic Ambulatory Analyst Relationship Specialty Start Date End Date Alfred Rios MD PCP - General Family Practice 04/18/15 Alfred Rios MD PCP - Assigned PCP 03/22/15 09/13/18 [id number] CARL LAWLER [id number] Alfred Rios MD Assigned PCP 03/22/15 06/01/20 [id number] CARL LAWLER [id number] documented as of this encounter
--- OUTSIDE RECORDS SUMMARY | 2022-04-28 22:56 | XMS_ITS | Encounter Summary ---
:1950 Author Organization [place] Address [facility] [place] [address] Care Team Providers Name Role Phone Alfred Morales MD Primary Care Provider [phone] Alfred Morales MD Unavailable Alfred Morales MD Unavailable Reason for Visit Reason Onset Date Comments Procedure 06/19/2015 LESI Encounter Details Date Type Department Care Team Description 06/19/2015 Telephone [facility] Sherri Kingston M D Procedure (LESI) Management Center [address] [place] [address] [id number] Social History Tobacco Use Types Packs/Day Years Used Date Smoking Tobacco: Former Cigarettes 1 35 Quit : 10/22/1999 Smokeless Tobacco: Never Alcohol Use Standard Drinks/Week Comments Yes 0 (1 standard drink = 0.6 oz pure alcoho l) 1-2 beers daily Sex Assigned at Date Recorded Male 12/31/2020 1:31 PM CDT documented as of this encounter Miscellaneous Notes Telephone Encounter - CarlromiEmeli - 06/20/2015 10:12 AM CST Pre-screening questions for Radiology Injections: Injection to be done at which interventional clinic site? [facility] Procedure ordered by Dr. MORALES Procedure ordered? Lumbar Epidural Steroid Injection What insurance would patient like us to bill for this procedure? MEDICA ?? Worker's comp-Any injection DO NOT SCHEDULE and route to Martina Christianson. ?? [employer] insurance - If scheduling an SI joint injection DO NOT SCHEDULE and route to Josue. ?? [employer]- MBB's must be scheduled at LEAST two weeks apart ?? [employer] - Any injection besides hip/shoulder/knee joint DO NOT SCHEDULE and route to Martina. She will obtain PA and call pt back to schedule procedure or notify pt of denial. Is an educational sign language interpreter needed? No Patient has a drive home? (mandatory) YES: Is patient taking any blood thinners (plavix, coumadin, jantoven, warfarin, heparin, pradaxa or dabigatran )? No (If so, do not schedule, contact RN and/or MD) Is patient taking any aspirin products? Yes - Pt takes 325mg daily; instructed to hold 0 day(s) prior to procedure. (If more than 325mg/day do not schedule; Contact RN/MD. For all non-cervical interventional procedures if patient is taking MORE than 325mg/day, limit aspirin to 81-325mg/day x 1 week. No hold requiredday of procedure. For CERVICAL procedures, hold all aspirin products for 6 days.) Does the patient have a bleeding or clotting disorder? No (If yes, okay to schedule, but contact RN/MD). For any patients with platelet count <100, must be forwarded to provider Is patient diabetic? No If YES, have them bring their glucometer. Does patient have an active infection or treated for one within the past week? No Is patient currently taking any antibiotics? No For patients on chronic, preventative, or prophylactic antibiotics, procedures can be scheduled. For patients on antibiotics for active or recent infection: Jayla Jett [place]-antibiotic course must have been completed for [address] Boyce-antibiotic course must have been completed for 7 days Is patient currently taking any steroid medications? No For patients on steroid medications: Jayla Jett [place]-steroid course must have been completed for [address] Boyce-steroid course must have been completed for 7 days Is patient actively being treated for cancer or immunocompromised, including the spleen having been removed? No For Dr. Keys patients without spleens should have the chart sent to her (If YES, do NOT schedule and route to RN) Any allergies to contrast dye, iodine, shellfish, or numbing and steroid medications? No (If so, inform nursing and note in scheduling comments.) Allergies: Nickel Any chance of ?Not Applicable Has the patient had a flu shot or any other vaccinations within 7 days before or after the procedure. No Does patient have an MRI/CT? YES: (SI joint, hip injections, lumbar sympathetic blocks, and stellate ganglion blocks do not require anMRI) ?? If so, was it done at [facility]? Yes ?? If not, where was it done? Was the MRI done w/in the last 3 years? Yes If MRI was not done at [facility], [facility] or [facility] do NOT schedule. Route to nursing. (If pt has disc the injection can be scheduled but pt has to bring disc to appt. If they show up w/out disc the injection cannot be done) Reminders (please tell patient if applicable): ?? Instructed pt to arrive 30 minutes early for IV start if this is for a cervical procedure, ALL sympathetic (stellate ganglion, hypogastric, or lumbar sympathetic block) and all sedation procedures (RFA, spinal cord stimulation trials). -IVs are not routinely placed for Dickerson and [place] cervical case ?? If NPO for sedation, informed patient that it is okay to take medications with sips of water (except if they are to hold blood thinners). *DO take blood pressure medication if it is prescribed* ?? If this is for a cervical JEFF, informed patient that aspirin needs to be held for 6 days. ?? Do not schedule procedures requiring IV placement in the first appointment of the day or first appointment after lunch ?? For patients 85 or older we recommend having an adult stay w/ them for the remainder of the day. Does the patient have any questions? Emeli Pollard [facility] TROMECHANICAL EQUIPMENT TESTER Telephone Encounter - Emeli Pollard - 06/20/2015 9:24 AM CST LVM for patient to call back and schedule a LESI, informed him that the appointment on 07/04 was made in error and that it has been cancelled. An appointment was made in error in a clinic visit spot, that appointment has been cancelled. Pleasereschedule the injection and go through prescreening questions with patient. Emeli Pollard Vice President Fixed Income [facility] TROMECHANICAL EQUIPMENT TESTER Telephone Encounter - Sherri Keys MD - 06/19/2015 10:59 PM CST Anthony Chun is on my 07/04/15 schedule as a 30 minute follow up listed as a LESI. 1) I do not believe that I have seen this patient before. I received a MyChart from the patient requesting clarification about an injection that was scheduled (and later cancelled). 2) He is scheduled for a procedure(?) during my clinic time. 3) He is scheduled for a 30 minute appointment, which is neither appropriate for a new consultation,nor for a procedure. Please investigate -- Thanks, Sherri Keys MD [facility] TROMECHANICAL EQUIPMENT TESTER documented in this encounter Plan of Treatment Not on filedocumented as of this encounter Visit Diagnoses Not on filedocumented in this encounter Care Teams Global Ceo Relationship Specialty Start Date End Date Alfred Morales MD PCP - General Family Practice 04/18/15 Alfred Morales MD PCP - Assigned PCP 03/22/15 09/13/18 [id number] CARL LAWLER [id number] Alfred Morales MD Assigned PCP 03/22/15 06/01/20 [id number] CARL LAWLER [id number] documented as of this encounter
--- OUTSIDE RECORDS SUMMARY | 2022-04-28 22:56 | XMS_ITS | Encounter Summary ---
:1950 Author Organization [place] Address [facility] [place] [address] Care Team Providers Name Role Phone Alfred Rios MD Primary Care Provider [phone] Alfred Rios MD Unavailable Alfred Rios MD Unavailable Reason for Visit Rehab Therapy Cardiac Therapy (Routine) - Closed Specialty Diagnoses / Procedures Referred By Contact Refer red To Contact CARDIAC REHAB Diagnoses MEdciare//S/P CABG (coronary artery bypass graft) M [facility] Procedures EVALUATION [address] [place] [address] [address] [place] [address] Phone: Fax: Referral ID Status Reason Start Date Expiration Date Visits V isits Requested Authorized [facility] - CR Closed 05/30/2015 07/11/2016 365 365 ([id number]) Encounter Details Date Type Department Care Team Description 08/01/2015 Hospital Encounter [facility] Cardiac Str Cynthia joiner PA and Pulmonary 1, Rh Cardiac Rehab Rehabilitation Ferrera [facility] [id number] [place] [address] [address] [place] [address] Social History Tobacco Use [...] - Inhaled Oxygen Concentration - - Weight 75.1 kg (165 lb 9.6 oz) 08/01/2015 10:00 AM DIRECTOR OF SLOT OPERATIONS Height 167.6 cm (5' 5.98) 08/01/2015 10:00 AM DIRECTOR OF SLOT OPERATIONS Body Mass Index 26.74 08/01/2015 10:00 AM DIRECTOR OF SLOT OPERATIONS documented in this encounter Medications at Time [...] (NITROSTAT) One tablet under 25 tablet 3 04/1201/31/2016 0.4 MG SL the tongue every 5 tabletIndications: minutes if needed Abnormal cardiovascular for chest pain. stress test, Status post May repeat every 5 coronary angiogram minutes for a maximum of 3 doses in 15 minutes documented as of this encounter Progress Notes Brody Sethi MD - 08/01/2015 11:34 AM CST OUTPATIENT CARDIAC REHAB DISCHARGE SUMMARY Name: Anthony Chun Date of : 1950 Date of Treatment: 05/22/15 Age: [age] year old Gender: male Treatment Diagnosis: Coronary Artery Bypass Surgery (x1--DiVinci Method Internal Mammary to LAD) Secondary Treatment Diagnosis: Hospital Location: [facility] Discharge Date: 05/25/15 Outpatient CR Start Date: 05/30/15 Primary Physician: Dr. Buckley Surgeon: Dr. Celis (appt June 10) Intellectual Property Manager: Dr. Flowers (Sees in july) Ejection Fraction: 55-60% THR (85% of age predicted max HR): 131.75 Risk Stratification: Low Pt made significant gains in exercise tolerance. Initially patient tolerated 30 minutes at 4.2 METs,now tolerating 35-40 minutes at 6.9 METs. Patient also increased 6-minute walk test by 39% (an increase of 559 feet.) The PT was given instructions on frequency, intensity, and duration for continued exercise as well as muscle conditioning and stretching exercises. Your PT plans to continue to exercise up to 3-6 days per week. By walking outdoors, elliptical inside sales trainer, and wt training. He was given HR,RPE and guidelines how to progress his MET levels independently. PT given information on the WEL program as he is not confident he will stay on track without accountability. Assessment: 06/11/15 Pt is progressing quickly with [...] higher levels and support for stress management. 07/17: Patient has been tolerating workloads well as [...] end of month. Patient and Program Goals Monitored sessions attended: 26 MET Goal: 5-7 Current MET Level: 6.9 Goal Attend cardiac rehab 3 times per week in order to increase overall endurance so that patient has less SOB with activity and exercise Target Date 07/30/15 Date Met 08/01/15 Progress Towards Goal 06/11/15. Pt has attend [...] has achieved this goal at this time. 08-01-15 evident by his increase in RYP scores from 55-59 Discussed goals on how to futher improve this socre. Referrals Recommended Referrals recommended: No Comments: Pain [...] and at goal since his initial session. 08/01/2015 BP remains controlled patient has met outcome goal. Tobacco Tobacco: Former (Quit > 6 mo ago) Quit date or planned quit date: 10/22/99 Tobacco habit: Cigarettes Tobacco use per day: 1ppd Interventions planned: (no interventions needed) Interventions completed: Stages of change: Maintenance Target outcome goal: Complete Smoking Cessation: Outcome Achieved Tobacco comments: 06/28/15 PT has no issues with abstinance. 08/01/15 PT has met outcome goal. Stress / Psychosocial Discharge Psychosocial assessment: Re-assessment Patient admits to stress: Yes (work stress) Current level of stress: Moderate Coping skills: deep breathing, talking with , visualization, wood working Patient Health Questionnaire-9 (PHQ-9) for Depression: 5-9 Minimal symptoms 10-14 Minor depression 15-19 Major depression, moderately severe > 20 Major depression, severe Completed PHQ-9 Score: 0 [facility] Function and Health Status Survey: A score of 4-5 indicates deficit for each functional health domain Completed Physical Fitness: 2 Feelings: 2 Daily Activities: 1 Social Activities: 1 Pain: 2 Change in Health: 1 Overall Health: 1 Social Support: 1 Quality of Life: 2 Stages of change: Maintenance Psychosocial interventions planned: Patient to verbalize understanding of negative impact of stress to personal health Psychsocial interventions completed: Identified 2-3 coping mechanisms for stress, Referred to Counseling Center/Trolley Car Overhauler, Recognizes signs and symptoms of depression Target outcome goal: Assessment for depression using PhQ-9 and [facility] questionnaires. Maximize coping skills and develop positive support system: Outcome Achieved Comments: 06/11/15. NOtes an increase in stress. He explained that his mom had a CVA and has moved from her home to a [place]. There is some family dispute between patient [...] time to meet with [place] next week. 08/01/2015 PT met with Niecy Ramsey the [facility] financial coach/[place] one last time last session. Hereports that he is in a good place right now. He is aware that he can continue to work [facility]. Therapist also suggested [facility] as an option for shelter support. PT PHQ9 and [employer] surveys both reflect what patient is telling me today. Nutrition Discharge Dietary assessment: Re-assessment Rate Your Plate - Heart Survey: Scores range from 24 to 72. The higher the score the healthier the eating choices. 59 Overweight / Obesity: Yes Age: 65 Weight: 75.116 kg (165 lb 9.6 oz) Height: 167.6 cm (5' 5.98) BMI (Calculated): 26.8 Goal weight: 72.576 kg (160 lb) Prescribed [...] the heart healthy zone and exercise consistently. 08/01/15 Review of the RYP scores showed patient o pportunites for improvement in his diet. He reported to me that he is working on healthier options when eating out. For example he ate 2 plates of salad at [employer] last night. He was proudof this. Overall patents BMI is 26 slighly over goal and his RYP score shows that he is just under 59/60 to achieve heart healthy eating goals. We discussed areas that he can continue to strive to makechanges. I encouraged patient to not focus on wt loss as a goal however to focus on heart healthy eating and exercise and the wt will change. Cholesterol Cholesterol: Labs Available Date: 04/16/15 Total Cholesterol: 200 HDL: 61 LDL: 124 Triglycerides: 74 Target outcome goal: Total cholesterol <150, HDL >40 M >50 F, LDL < 70, Trig < 150: Outcome Not Achieved Comments: 06/28/15 Reviewed CHOL values. PT reports he is now back on Lipitor and is aware to watch for joint pain. 08/01/15 Again reviewed numbers and discussed benefits of CHOL medications beyond the numbers. Diabetes Management Diabetes Management: NA Hb A1C: Pre-Exercise Blood Sugar: Target outcome goal: Hb A1C < 7: Comments: Inactivity / Aerobic Exercise Discharge Status Activity assessment: Re-assessment Inactivity: Meets Physical Activity Goal, Exercise [...] Patient has elliptical and weights at home. 08-01-15 PT plans to continue to exircise on his off days. He will plan to walk his dog daily and exercise at a higher intensity 3-4 days per week. INDIVIDUALIZED TREATMENT PLAN Monitored sessions scheduled: 36 Monitored sessions attended: 26 Exercise Reassessment Discharge 6 Minute Walk Distance: 2006 ft 6 Minute Walk Predicted (Male): 1643.11 6 Minute Walk Predicted (Female): 1550 Met Level Achieved: 6.9 Resting HR: 66 bpm Exercise HR: 136 bpm Post Exercise HR: 104 bpm Resting BP: 102/64 mmHg Exercise BP: 162/64 mmHg Post Exercise BP: 118/78 mmHg RPE: 6 ECG Rhythm: Sinus rhythm Ectopy: [...] to routine and is now at 8#. 08-01-15 PT and therapist reviewed alternative wt training opportunities. Discussed progresion of MET level per tolerance and HR resonse. Current Home Exercise Type of Exercise: Walking, Eliptical Frequency (days per week): 4-6 Duration (minutes per session): 20-30 Recommended Home Exercise Prescription Type of Exercise: Walking, Eliptical Frequency (days per week): 4-6 Duration (minutes per session): 30-45 min RPE recommended: (4-6 OMNI scale of exertion) Recommended THR: 118-132 bpm. PT aware that he does not need to push harder than 132 bpm Comments/Exercise plan: He has increased his physical activity 06/28/15 PT encouraged to repeat the work levels that he achieves in CR> -6 PT given trang on HR, RPE, exercise progression and frequenxy. He plans to continue with exercise on his home elliptical and wts. He is looking for a treadmill and will have a full wt training gym by this spring. Patient Education Education Attended: Medication Overview, Nutrition, Stress Management Physician cosignature/electronic signature indicates agreement with the ITP document and approval ofdischarge. CTOR OF SLOT OPERATIONS documented in this encounter Plan of Treatment Not on filedocumented as of this encounter Visit Diagnoses Not on filedocumented in this encounter Care Teams Shaker Flatwork Relationship Specialty Start Date End Date Alfred Rios MD PCP - General Family Practice 04/18/15 Alfred Rios MD PCP - Assigned PCP 03/22/15 09/13/18 [id number] CARL LAWLER [id number] Alfred Rios MD Assigned PCP 03/22/15 06/01/20 [id number] CARL LAWLER [id number] documented as of this encounter
--- OUTSIDE RECORDS SUMMARY | 2022-04-28 22:56 | XMS_ITS | Encounter Summary ---
:1950 Author Organization [place] Address [facility] [place] [address] Care Team Providers Name Role Phone Alfred Rios MD Primary Care Provider [phone] Alfred Rios MD Unavailable Alfred Rios MD Unavailable Reason for Visit Rehab Therapy Cardiac Therapy (Routine) - Closed Specialty Diagnoses / Procedures Referred By Contact Refer red To Contact CARDIAC REHAB Diagnoses MEdciare//S/P CABG (coronary artery bypass graft) M [facility] Procedures EVALUATION [address] [place] [address] [address] [place] [address] Phone: Fax: Referral ID Status Reason Start Date Expiration Date Visits V isits Requested Authorized [facility] - CR Closed 05/30/2015 07/11/2016 365 365 ([id number]) Encounter Details Date Type Department Care Team Description 07/01/2015 Hospital Encounter [facility] Cardiac Str Cynthia joiner PA and Pulmonary 1, Rh Cardiac Rehab Rehabilitation Ferrera [facility] [address] [place] [address] [address] [place] [address] Social History Tobacco Use [...] on filedocumented in this encounter Care Teams Acoustical Tile Drill Press Operator Relationship Specialty Start Date End Date Alfred Rios MD PCP - General Family Practice 04/18/15 Alferd Rios MD PCP - Assigned PCP 03/22/15 09/13/18 [id number] CARL LAWLER [id number] Alfred Rios MD Assigned PCP 03/22/15 06/01/20 [id number] CARL LAWLER [id number] documented as of this encounter
--- OUTSIDE RECORDS SUMMARY | 2022-04-28 22:56 | XMS_ITS | Encounter Summary ---
:1950 Author Organization [place] Address [facility] [place] [address] Care Team Providers Name Role Phone Alfred Rios MD Primary Care Provider [phone] Alfred Rios MD Unavailable Alfred Rios MD Unavailable Reason for Visit Rehab Therapy Cardiac Therapy (Routine) - Closed Specialty Diagnoses / Procedures Referred By Contact Refer red To Contact CARDIAC REHAB Diagnoses MEdciare//S/P CABG (coronary artery bypass graft) M [facility] Procedures EVALUATION [address] [place] [address] [address] [place] [address] Phone: Fax: Referral ID Status Reason Start Date Expiration Date Visits V isits Requested [facility]ized [facility] Closed 05/30/2015 07/11/2016 365 365 ([id number]) Encounter Details Date Type Department Care Team Description 06/26/2015 Hospital Encounter [facility] Cardiac Str Cynthia joiner PA and Pulmonary 1, Rh Cardiac Rehab Rehabilitation Ferrera [facility] [address] [place] [address] [address] [place] [address] Social History Tobacco Use [...] on filedocumented in this encounter Care Teams Ball Worker Relationship Specialty Start Date End Date Alfred Rios MD PCP - General Family Practice 04/18/15 Alfred Rios MD PCP - Assigned PCP 03/22/15 09/13/18 [id number] CARL LAWLER [id number] Alfred Rios MD Assigned PCP 03/22/15 06/01/20 [id number] CARL LAWLER [id number] documented as of this encounter
--- OUTSIDE RECORDS SUMMARY | 2022-04-28 22:57 | XMS_ITS | Encounter Summary ---
:1950 Author Organization [facility] Address [address] [place] [address] Care Team Providers Name Role Phone Alfred Rios MD Primary Care Provider [phone] Alfred Rios MD Unavailable Alfred Rios MD Unavailable Reason for Visit Reason Comments Surgical Followup Encounter Details Date Type Department Care Team Description 06/10/2015 Office Visit [facility] Cardiothoracic Reymundo Slaughter S/P CABG (coronary artery by pass graft) (Primary Dx); [address] [place] [address] XXX RESIGNED XXX [phone] [place] [address] Social History Tobacco Use Types Packs/Day Years [...] Sign Reading Time Taken Comments Blood Pressure 126/66 06/10/2015 3:54 PM CONICAL MIXER Pulse 78 06/10/2015 3:54 PM [employer]ICAL M[facility]ER Temperature - - Respiratory Rate - - Oxygen Saturation - - Inhaled Oxygen Concentration - - Weight 74.4 kg (164 lb) 06/10/2015 3:54 PM [employer]ICAL M[employer]ER Height 167.6 cm (5' 6) 06/10/2015 3:54 PM [employer] M[facility]ER Body Mass Index 26.47 06/10/2015 3:54 PM CONICAL MIXER documented in this encounter Progress Notes José Miguel Mcclelland PA-C - 06/10/2015 4:21 PM CST S: Mr. Anthony Chun is a pleasant 65 yo male, S/P robotic-assisted coronary artery bypass grafting (RIVAS to LAD) on May 22, [address] Fede Celis - he presents for surgical follow-up. Mr. Chun reports to be feeling very well postoperatively - and reports to be getting a bit better each day. He c/o mild pain with movement, though reports that his most significant discomfort is related to his back. He reports that he will be receiving an injection in the coming weeks for this. Mr. Chun reports to be doing quite well otherwise - he has enrolled in cardiac rehab and plans to continue this regularly - he also plans to attend the informational sessions afterwards. He reports to have a good appetite, and to be snacking less in between meals. 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 Also, he is eager to return to his [employer] league (the patient is right-handed). O: BP 126/66 mmHg Pulse 78 Ht 1.676 m (5' 6) Wt 74.39 kg (164 lb) BMI 26.48 kg/m2 Gen: AOx4, NAD CV: S1 S2 present, RRR Lungs: CTAB, good inspiratory effort, no wheezes, no rales, no rhonchi Ext: No peripheral edema Skin: Incisions CDI without erythema or warmth. Healing well. A/P: Coronary artery disease, S/P robotic-assisted CABG on 05/22/2015 - patient continues to progress well postoperatively. His Tramadol was refilled, with no subsequent refills. The patient plans to return to work on June 19, 2015 - I encouraged him to start part-time for a few days, and work his way back to full- time. The patient was also instructed to work his way slowly back to his [employer] league - to start with a lead sql developer ball, and start with limited frames. The patient's lifting restrictionswill be discontinued as of 06/21/2015. Additionally, the patient reports to have cardiology follow-up scheduled with Dr. Flowers in July 2015 - he was instructed to keep this appointment. All questions were answered to the patient's satisfaction - he is discharged from surgical follow-up, though wasencouraged to contact us with any further questions or concerns. José Miguel Mcclelland PA-C [facility] - Cardiothoracic Surgery Pager: [phone] [employer] MIXER documented in this encounter Plan of Treatment Not on filedocumented as of this encounter Visit Diagnoses Diagnosis S/P CABG (coronary artery bypass graft) - Primary Postsurgical aortocoronary bypass status Lumbar radiculopathy Thoracic or lumbosacral neuritis or radi culitis, unspecified documented in this encounter Care Teams Exchange Teller Relationship Specialty Start Date End Date Alfred Rios MD PCP - General Family Practice 04/18/15 Alfred Rios MD PCP - Assigned PCP 03/22/15 09/13/18 [id number] CARL LAWLER [id number] Alfred Rios MD Assigned PCP 03/22/15 06/01/20 [id number] CARL LAWLER [id number] documented as of this encounter
--- OUTSIDE RECORDS SUMMARY | 2022-04-28 22:57 | XMS_ITS | Encounter Summary ---
:1950 Author Organization [place] Address [facility] [place] [address] Care Team Providers Name Role Phone Alfred Rios MD Primary Care Provider [phone] Alfred Rios MD Unavailable Alfred Rios MD Unavailable Reason for Visit Rehab Therapy Cardiac Therapy (Routine) - Closed Specialty Diagnoses / Procedures Referred By Contact Refer red To Contact CARDIAC REHAB Diagnoses MEdciare//S/P CABG (coronary artery bypass graft) [facility] Procedures EVALUATION [address] [place] [address] [address] [place] [address] Phone: Fax: Referral ID Status Reason Start Date Expiration Date Visits V isits Requested Authorized [facility] - CR Closed 05/30/2015 07/11/2016 365 365 ([id number]) Encounter Details Date Type Department Care Team Description 06/04/2015 Hospital Encounter [facility] Cardiac Str Cynthia joiner PA and Pulmonary 3, Rh Cardiac Rehab Rehabilitation [facility] [address] [address] [place] [address] Social History Tobacco Use [...] Sig Dispensed Refills Start Date End Date pantoprazole (PROTONIX) Take 1 tablet (40 mg) 14 tablet 0 1 07/25/2014 06/08/2015 40 MG enteric coated by mouth every tabletIndications: S/P morning for 14 days CABG (coronary artery bypass graft) acetaminophen 650 MG Take 650 mg by [...] S/P constipation CABG (coronary artery bypass graft) TRAMADOL HCL PO Take 50 mg by mouth 0 06/10/2015 daily as needed for moderate pain or moderate to severe pain documented as of this encounter Plan of Treatment Not on filedocumented as of this encounter Visit Diagnoses Not on filedocumented in this encounter Care Teams Cardiovascular Lab Director Relationship Specialty Start Date End Date Alfred Rios MD PCP - General Family Practice 04/18/15 Alfred Rios MD PCP - Assigned PCP 03/22/15 09/13/18 [id number] CARL LAWLER [id number] Alfred Rios MD Assigned PCP 03/22/15 06/01/20 [id number] CARL LAWLER [id number] documented as of this encounter
--- OUTSIDE RECORDS SUMMARY | 2022-04-28 22:57 | XMS_ITS | Encounter Summary ---
:1950 Author Organization [facility] Address [address] [place] [place] [address] Care Team Providers Name Role Phone Alfred Rios MD Primary Care Provider [phone] Alfred Rios MD Unavailable Alfred Rios MD Unavailable Reason for Referral Rehab Therapy Cardiac Therapy Specialty Diagnoses / Procedures Referred By Contact Refer red To Contact Cynthia Camacho PA [address] [place] [id number] Referral ID Status Reason Start Date Expiration Date Visits Requ ested Visits Authorized A DELIVERY DRIVER Reason for Visit Auth/Cert - Closed Specialty Diagnoses / Procedures Referred By Contact Refer red To Contact Surgery Diagnoses cad Sh Periop Services Procedures DAVINCI BYPASS ARTERY CORONARY [address] [place] [phone] Phone: Referral ID Status Reason Start Date Expiration Date Visits Requ ested Visits Authorized [id number] Closed 1 1 Encounter Details Date Type Department Care Team Description 05/22/2015 - Hospital Encounter [facility] Chapo Celis S/P CABG (coronary 05/25/2015 Steve Tipton MD artery bypass Intermediate Care graft) (Primary Dx) [address] [id number] Social History Tobacco Use Types Packs/Day Years [...] Sign Reading Time Taken Comments Blood Pressure 133/74 05/25/2015 7:26 AM PIZZA DELIVERY DRIVER Pulse 90 05/24/2015 3:21 PM PIZZA DELIVERY DRIVER Temperature 36.8 ??C (98.3 ??F) 05/25/2015 7:26 AM PIZZA DELIVERY DRIVER Respiratory Rate 16 05/25/2015 9:56 AM PIZZA DELIVERY DRIVER Oxygen Saturation 92% 05/25/2015 7:26 AM PIZZA DELIVERY DRIVER Inhaled Oxygen Concentration - - Weight 75.2 kg (165 lb 12.6 05/25/2015 5:00 AM standing weight oz) PIZZA DELIVERY DRIVER Height 167.6 cm (5' 6) 05/22/2015 5:32 AM PIZZA DELIVERY DRIVER Body Mass Index 26.76 05/22/2015 5:32 AM PIZZA DELIVERY DRIVER documented in this encounter Discharge Summaries Chapo Celis MD - 05/25/2015 9:50 AM CST Discharge Summary Anthony Chun Date of : 1950 Age: [age] year old Date of Admission: 05/22/2015 Date of Discharge: 05/25/2015 Admitting Physician: Chapo Celis MD Discharge Physician: Chapo Celis,* Discharging Service: Cardiovascular and Thoracic Surgery Home clinic: [facility] Primary Provider: Alfred Rios Admission Diagnoses: cad Coronary artery disease Discharge Diagnosis: Active Problems: Coronary artery disease S/P CABG (coronary artery bypass graft) Anemia due to blood loss, acute Fluid overload Discharge Disposition: Discharged to home Condition on Discharge: Discharge condition: Stable Discharge vitals: Blood pressure 133/74, pulse 90, temperature 98.3 ??F (36.8 ??C), temperature source Oral, resp. rate 16, height 1.676 m (5' 6), weight 75.2 kg (165 lb 12.6 oz), SpO2 92 %. Code status on discharge: Full Code Procedures: 05/22/15 Dr Chapo Celis: SURGICAL PROCEDURES PERFORMED: 1. Left video thoracoscopy. 2. Robotic-assisted coronary artery bypass grafting x1 with left internal mammary artery to left anterior descending artery. 3. Left mini-thoracotomy for direct off-pump beating heart anastomosis between the left internal mammary graft and the left anterior descending. Medications Prior to Admission: Prescriptions prior to admission Medication Sig Dispense Refill Last Dose ??? TRAMADOL HCL PO Take 50 mg by mouth daily as needed for moderate pain or moderate to severe pain05/21/2015 at AM ??? atorvastatin (LIPITOR) 40 MG tablet Take 1 tablet (40 mg) by mouth daily 30 tablet 12 05/21/2015t 2200 ??? nitroglycerin (NITROSTAT) 0.4 MG SL tablet One tablet under the tongue every 5 minutes if neededfor chest pain. May repeat every 5 minutes for a maximum of 3 doses in 15 minutes 25 tablet 3 NeverUsed at PRN ??? [DISCONTINUED] metoprolol (TOPROL-XL) 50 MG 24 hr tablet Take 1 tablet (50 mg) by mouth daily 30tablet 3 05/22/2015 at 0330 ??? [DISCONTINUED] aspirin 81 MG tablet Take 1 tablet (81 mg) by mouth daily 30 tablet 12 05/22/2015t 0330 ??? [DISCONTINUED] hydrochlorothiazide (HYDRODIURIL) 25 MG tablet Take 25 mg by mouth daily 05/21/2015 at AM Discharge Medications: Discharge Medication List as of 05/25/2015 10:14 AM START taking these medications Details oxyCODONE (ROXICODONE) 5 MG immediate release tablet Take 1-2 tablets (5-10 mg) by mouth every 3 hours as needed for other (moderate pain), Disp-60 tablet, R-0, Local Print acetaminophen 650 MG TABS Take 650 mg by mouth every 6 hours as needed for mild pain or fever, Disp-100 tablet, OTC metoprolol (LOPRESSOR) 25 MG tablet Take 1 tablet (25 mg) by mouth 2 times daily, Disp-60 tablet, R-2, E-Prescribe senna-docusate (SENOKOT-S;PERICOLACE) 8.6-50 MG per tablet Take 1-2 tablets by mouth 2 times daily as needed for constipation, Disp-15 tablet, R-0, E-Prescribe pantoprazole (PROTONIX) 40 MG enteric coated tablet Take 1 tablet (40 mg) by mouth every morning for14 days, Disp-14 tablet, R-0, E-Prescribe aspirin EC 325 MG tablet Take 1 tablet (325 mg) by mouth daily, Disp-30 tablet, R-2, E-Prescribe CONTINUE these medications which have NOT CHANGED Details TRAMADOL HCL PO Take 50 mg by mouth daily as needed for moderate pain or moderate to severe pain, Historical atorvastatin (LIPITOR) 40 MG tablet Take 1 tablet (40 mg) by mouth daily, Disp- 30 tablet, R-12, E-Prescribe nitroglycerin (NITROSTAT) 0.4 MG SL tablet One tablet under the tongue every 5 minutes if needed forchest pain. May repeat every 5 minutes for a maximum of 3 doses in 15 minutes, Disp-25 tablet, R-3,Local Print STOP taking these medications metoprolol (TOPROL-XL) 50 MG 24 hr tablet Comments: Reason for Stopping: aspirin 81 MG tablet Comments: Reason for Stopping: hydrochlorothiazide (HYDRODIURIL) 25 MG tablet Comments: Reason for Stopping: Consultations: Air Drier, Nutrition, Cardiac Rehab Brief History of Illness: Anthony Chun is a 65-year-old gentleman who has multiple cardiac risk factors including hypertension and hyperlipidemia. He presented with exertional chest discomfort. Cardiac workup revealed a severeproximal stenosis of the left anterior descending artery which also involved the distal circumflex artery. Due to this finding, the patient was recommended to refer to cardiac surgery for bypass grafting surgery by Dr. Alton Flowers. Based on the patient's anatomy, we recommended robotic-assisted coronary artery bypass grafting surgery with RIVAS to LAD. Hospital Course: Mr Chun underwent robot assisted coronary artery bypass grafting x 1 (left internal mammary artery to left anterior descending artery) without complication on 05/22/[address] Milan Celis. The patient was extubated POD 0. Transferred to the surgical floor on POD 1 when blood pressure, heart rhythm, and respiratory status stabilized. Chest tubes were removed on POD 1. Had some fluid overload which improved with gentle diuresis. Was at pre-op weight. Was not discharged on diuretics. The patient progressedwell with cardiac rehab. Rhythm was stable throughout the hospitalization. Discharged to home on POD3. The patient has coronary artery disease. Discharged on aspirin, metoprolol, and atorvastatin. Significant Results: WBC 9.0 05/25/2015 RBC 4.05 05/25/2015 HGB 13.0 05/25/2015 HCT 36.5 05/25/2015 No components found with this name: mct MCV 90 05/25/2015 MCH 32.1 05/25/2015 MCHC 35.6 05/25/2015 RDW 12.8 05/25/2015 PLT 175 05/25/2015 Last Basic Metabolic Panel: NA 139 05/25/2015 POTASSIUM 3.8 05/25/2015 CHLORIDE 105 05/25/2015 DAJA 8.3 05/25/2015 CO2 28 05/25/2015 BUN 15 05/25/2015 CR 0.97 05/25/2015 GLC 108 05/25/2015 CXR 05/24/15 FINDINGS: Left chest tube removed, no pneumothorax. Mild atelectasis and possibly minimal fluid at the left base. The cardiac silhouette is stable. Pulmonary vasculature is unremarkable. IMPRESSION: No pneumothorax demonstrated. Pending Results: None Discharge Instructions and Follow-Up: Discharge diet: Active Diet Order Regular Diet Adult Diet Discharge activity: Daily weights: Call if weight gain 2-3 lbs over 24 hours or if greater than 5 lbs in 1 week. No lifting more than 10 lbs for 8-12 weeks. No driving for 1 month. Call for pain medication refill. Call for temperature greater than 101.0 Daily shower with antibacterial soap. Discharge follow-up: *Follow up primary care provider in 7-10 days after discharge in order to review your medication, vital signs, obtain any necessary lab work your doctor may want, and to update them on your hospitalization and medical issues. *Follow up with physician education administrative assistant in the office of Dr Celis, heart surgeon, on 06/10/15 at 3:00 pm at [facility] [address]. If any questions or concerns call [phone]. You will see us once at this visit and then if everything is going well you will not need to seeus again. You will follow termite technician with your senior net software developer. *Follow up with Dr Flowers, senior net software developer, in 3 months. This is who you will follow with pen[facility] about your heart issues. [phone]. *For [facility] outpatient cardiac rehab, call [phone]. Outpatient therapy: Cardiac Rehab Home Care agency: None Supplies and equipment: None Lines and drains: None Wound care: Wash incision daily with antibacterial soap Other instructions: None A DELIVERY DRIVER documented in this encounter Discharge Instructions Discharge Roro Bishop RN - 05/25/2015 10:13 AM CST Images from the original note were not included. YOUR CARE AFTER HEART SURGERY DISCHARGE INTRUCTIONS ??? Weight - Weigh yourself daily and record on daily weight sheet provided in this packet. ??? Incentive Spirometer - Continue to use 3 to 4 times a day for 10 days; follow use of spirometer with coughing. Use attached sheet to report progress. ??? Daily shower - Wash all surgical incisions daily with liquid antibacterial soap, such as Dial. No tub baths until incisions are healed. The sticky glue used to close your incisions may peel off slowly. ??? Incisions - Avoid all lotions, oils, ointments or sunscreen on incisions for 8 weeks. Avoid sunlight on incision sites for 8 weeks and then use sunscreen on incisions for one year. You may have numbness, tingling, and increased sensitivity around your incision lines for several weeks/months as thenerves grow back. Some drainage from the sites where your chest tubes were is normal and can persistfor a while until it has healed. It is best to keep this open to air to allow scab formation and healing, you can cover it with a gauze pad or band-aid if needed. ??? Diet - Eat a well balanced diet to promote healing. It can be normal to have a decreased appetite for a while after surgery. You can eat whatever it takes to keep up a normal food/calorie intake inthe immediate post-operative period for about a month. Try to limit high sodium (salt) foods to prevent fluid retention. If you are a diabetic, continue to balance your carbohydrate intake with your medicine. Eventually you will need to adopt a heart healthy diet, especially if you have coronary artery disease. ??? Daily exercise/activity precautions - Cardiac rehab therapist will review your restrictions withyou. No lifting, pushing or pulling anything over 10 pounds for 12 weeks if you are a diabetic or 8 weeks if you are not a diabetic (reference: a gallon of milk weighs 8 pounds). ??? Positioning -Keep your legs elevated above the level of your heart when you are in bed. You may lie on your side and stomach if it???s comfortable and you have no sternal click (popping in breastbone). ??? Pain medications - Use as directed. Call surgeon for pain medication refill if needed. Other medications should be filled by your primary doctor. ??? Depression - It is not uncommon after surgery. If it lasts longer than two weeks or you feel youneed to talk to someone, contact your primary physician. ??? Driving -No driving for 4 weeks from the day of surgery (or until your surgeon has approved it). ??? Work and Travel - Consult with your physician about specific work and travel restrictions ??? Cardiac Rehabilitation - Usually begins approximately one week after discharge and lasts up to 6weeks. In the meantime, continue to work on the rehab activities you learned in the hospital and maintain your physical activity. Aerobic activity, especially walking, is a great way to regain your physical endurance. ??? Checking your Blood sugar (glucose) - If you have been instructed to begin checking your blood sugars at home, record them on the back page of this packet and take the packet with you to your follow appointment with you primary physician (usually about 1 week after surgery). CALL YOUR SURGEON IF ANY OF THE FOLLOWING OCCURS: ??? Fever - If you feel chills, shaking, or your temperature is over 101 degrees ??? Sternal Click - Some popping or clicking sensations can be normal as the chest has been stretched open. If you notice a significant change or if pain becomes bothersome, please call. ??? Angina/Chest Pain - Or symptoms similar to those you experienced before surgery ??? Infection - If incisions look infected (increasing redness, tenderness, swelling, warmth, odor, drainage, or change in color if drainage). ??? Weight gain - Please call if weight gain of 2-3pounds over 24 hours or if greater than 5 pounds in 1 week as this may indicate fluid overload and could signify a problem with your heart. ??? Swelling - If you notice worsening swelling in your legs. A certain amount of swelling is expected, especially if you had a vein taken out of your leg for bypass surgery. ??? Shortness of breath - Not relieved by rest ??? Persistent heart palpitations - Rapid, pounding heartbeat ??? Dizziness/lightheadedness - While sitting or at rest ??? Pain - Not relieved by pain medications Your Daily Weight [facility] [address] Weigh yourself every morning in the same clothes after urinating and before breakfast. Call your physician if your weight increases 2-3 lbs in one day or 3-5 lbs in a week My baseline weight (first morning home): Date Weight Date Weight 1. 17. 2. 18. 3. 19. 4. 20. 5. 21. 6. 22. 7. 23. 8. 24. 9. 25. 10. 26. 11. 27. 12. 28. 13. 29. 14. 30. 15. 31. 16. 32. A DELIVERY DRIVER documented in this encounter Medications at Time [...] if needed for Abnormal cardiovascular chest pain. May stress test, Status repeat every 5 post [...] severe pain documented as of this encounter Progress Notes Cynthia Camacho PA - 05/25/2015 9:49 AM CST CV Surgery S: Patient in bed. Reports feeling well. Had BM this morning. Tolerating diet. Pain well controlled. O: B/P: 133/74, T: 98.3, P: 90, R: 16 General: NAD, well appearing Heart: S1 S2, rrr Lungs: clear Abd: +BS, soft/nt/nd Incision: Left thoracotomy c/d/i Extremities: Trace LE edema WBC 9.0 05/25/2015 RBC 4.05 05/25/2015 HGB 13.0 05/25/2015 HCT 36.5 05/25/2015 No components found with this name: mct MCV 90 05/25/2015 MCH 32.1 05/25/2015 MCHC 35.6 05/25/2015 RDW 12.8 05/25/2015 PLT 175 05/25/2015 Last Basic Metabolic Panel: NA 139 05/25/2015 POTASSIUM 3.8 05/25/2015 CHLORIDE 105 05/25/2015 DAJA 8.3 05/25/2015 CO2 28 05/25/2015 BUN 15 05/25/2015 CR 0.97 05/25/2015 GLC 108 05/25/2015 A/P: POD 3 s/p robot assisted coronary artery bypass grafting. Discharge to home today. Cynthia Camacho PA-C Pager [phone] A DELIVERY DRIVER José Miguel Mcclelland PA-C - 05/24/2015 10:22 AM CST [facility] Cardiothoracic Surgery - Daily Progress Note Assessment and Plan: POD#2 s/p ROBOTIC CORONARY ARTERY BYPASS (RIVAS TO LAD) (OFF PUMP) By Dr. Celis -CVS: HR 80s, SBP stable. Metoprolol 25 mg PO bid. Continue to monitor. -Resp: Extubated per protocol, sating well room air. Continue IS, pulmonary toilet. -Neuro: Grossly intact, pain well-controlled. -Renal: good UO, Crea: 0.97. Lasix 20 mg IVP bid. -GI: Continue bowel regimen. -: Garsia out, voiding without difficulty. -Endo: SSI, pre-op A1C 6.0 -FEN: replete lytes as needed. Active Diet Order Regular Diet Adult -ID: WBC: 13.2, Temp (24hrs), Av.4 ??F (36.9 ??C), Min:97 ??F (36.1 ??C), Max:99.4 ??F (37.4 ??C) , comeplting everette-op abx -Heme: Hgb: 13.6, plt: 183, acute blood loss anemia. -Proph: PCD, ASA, BB, statin. -Dispo: Patient progressing well on [address]. Continue therapies, continue incentive spirometry. Anticipate discharge home tomorrow. Interval History: Patient reports to be feeling well, reports pain is well-controlled. Denies SOB, denies F/C/S. Tolerating diet without N/V. + flatus, no BM yet. Medications: ??? [START ON 05/25/2015] pantoprazole 40 mg Oral QAM ??? furosemide 20 mg Intravenous BID ??? metoprolol 25 mg Oral BID ??? insulin aspart 1-7 Units Subcutaneous TID AC ??? insulin aspart 1-5 Units Subcutaneous At Bedtime ??? sodium chloride (PF) 3 mL Intravenous Q8H ??? acetaminophen 650 mg Oral Q6H Or ??? acetaminophen 650 mg Rectal Q6H ??? senna-docusate 1-2 tablet Oral BID ??? polyethylene glycol 17 g Oral Daily ??? aspirin 81 mg Oral or NG Tube Daily ??? lidocaine 1 patch Transdermal Q24h And ??? lidocaine Transdermal Q24H And ??? lidocaine Transdermal Q8H cyclobenzaprine, glucose OR dextrose OR glucagon, naloxone, IV fluid REPLACEMENT ONLY, sodium chloride (PF), sodium chloride (PF), albumin human, insulin aspart, HYDROmorphone, oxyCODONE, ondansetron OR ondansetron, bisacodyl, albuterol, hydrALAZINE, potassium chloride SA, potassium chloride, potassium chloride, potassium chloride with lidocaine, potassium chloride, magnesium sulfate, magnesium sulfate, magnesium sulfate magnesium sulfate, potassium phosphate (KPHOS) in D5W IV, potassium phosphate (KPHOS) in D5W IV, potassium phosphate (KPHOS) in D5W IV, potassium phosphate (KPHOS) in D5W IV, potassium phosphate (KPHOS) in D5W IV Physical Exam: Vitals were reviewed Blood pressure 116/70, pulse 91, temperature 99.1 ??F (37.3 ??C), temperature source Oral, resp. rate 16, height 1.676 m (5' 6), weight 76.34 kg (168 lb 4.8 oz), SpO2 94 %. Rhythm: Regular Lungs: CTA, good inspiratory effort Cardiovascular: S1 S2 present, RRR Abdomen: Soft, ND, NT. BS normoactive Extremeties: No BLE edema Incision: CDI without erythema or warmth CT: N/A. Weight: Filed Vitals: 05/22/15 0532 05/23/15 0500 05/23/15 1733 Weight: 74.872 kg (165 lb 1 oz) 76 kg (167 lb 8.8 oz) 76.34 kg (168 lb 4.8 oz) Data: Labs: WBC 13.2 05/24/2015 RBC 4.12 05/24/2015 HGB 13.6 05/24/2015 HCT 37.6 05/24/2015 No components found with this name: mct MCV 91 05/24/2015 MCH 33.0 05/24/2015 MCHC 36.2 05/24/2015 RDW 13.3 05/24/2015 PLT 183 05/24/2015 Last Basic Metabolic Panel: NA 138 05/24/2015 POTASSIUM 4.2 05/24/2015 CHLORIDE 105 05/24/2015 DAJA 8.5 05/24/2015 CO2 25 05/24/2015 BUN 16 05/24/2015 CR 0.97 05/24/2015 GLC 110 05/24/2015 CXR: FINDINGS: Left chest tube removed, no pneumothorax. Mild atelectasis and possibly minimal fluid at the left base. The cardiac silhouette is stable. Pulmonary vasculature is unremarkable. IMPRESSION IMPRESSION: No pneumothorax demonstrated. José Miguel Mcclelland PA-C [facility] - Cardiothoracic Surgery Pager: [phone] A DELIVERY DRIVER Associated attestation - Reymundo Slaughter MD - 05/24/2015 2:31 PM PIZZA DELIVERY DRIVER Physician Attestation I agree with the information in this note. Charo Minor RD, LD - 05/24/2015 8:57 AM CST NUTRITION ASSESSMENT REASON FOR ASSESSMENT: Cardiac Surgery Nutrition Consult CURRENT DIET / INTAKE: Regular Visited with pt this morning Reports good appetite and is enjoying the food Had New Zealander toast, cinnamon roll, banana and OJ for breakfast Eating ~100% NUTRITION HISTORY: Pt follows a regular diet at home Eats fruits and veggies daily - likes to have raw veggies for a snack Is not a milk drinker No food allergies ANTHROPOMETRICS: Ht: 5'6 Wt: (05/22 - admit) 74.9 kg BMI: 26.6 IBW: 64.5 kg %IBW: 116% ASSESSED NUTRITION NEEDS: Estimated Energy Needs 5484-9685 kcals/day (25-30 kcals/kg) - maintenance Estimated Protein Needs 90-115 gms/day (1.2-1.5 gms/kg) - Post-op healing Estimated Fluid Needs 4035-7665 (1 mL/kcal) or per MD goals for fluid balance NUTRITION STATUS VALIDATION: Weight Status: Overweight BMI 25-29.9 Patient does not meet two of the following criteria necessary for diagnosing malnutrition: significant weight loss, reduced intake, subcutaneous fat loss, muscle loss or fluid retention NUTRITION DIAGNOSIS: No nutrition diagnosis at this time INTERVENTIONS: Nutrition Prescription: Regular diet Implementation: Nutrition Education (Content): Discussed the importance of adequate nutrition post-op for healing and energy, emphasizing protein foods Medical Food Supplements: Recommended use of high protein nutrition supplement, if needed Goals: Patient to consume ~75% at meals Patient verbalizes understanding of diet by listing two reasons why adequate nutrition is important post op. Goals met during the education session Follow Up/Monitoring (InPatient): Food and Fluid intake - Monitor for adequacy Follow Up/Monitoring (OutPatient): Patient will participate in out-patient cardiac rehab at [facility] and attend nutrition classes during theprogram Maryanne Nguyen RN - 05/23/2015 5:02 PM CST Report given to station 33 RN, questions answered. Pt transferred with bradford and liudmila RN to [facility]. Maryanne Nguyen RN - 05/23/2015 3:30 PM CST Left chest tube removed by Cardio-surgery PAs, Dilaudid 0.5 mg administered before hand for procedural pain relief. Pt tolerated well. Will continue to monitor. Deepa Hess OT - 05/23/2015 11:23 AM CST 05/23/15 1035 Quick Adds Type of Visit Initial Occupational Therapy Evaluation Living Environment (R) Lives With spouse Living Arrangements house Home Accessibility stairs to enter home;stairs within home Number of Stairs To Enter Home 3 Number of Stairs Within Home 20 Transportation Available car Self-Care Regular Exercise no Activity/Exercise/Self-Care Comment enjoys golfing and used to walk the dog but dog in October. 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 General Information Onset of Illness/Injury or Date of Surgery - Date 05/22/15 Referring Physician Brandon García MD Patient/Family Goals Statement Return home Pertinent History of Current Problem Pt admitted s/p robotic CABGx1, PMH: former smoker, hyperlipdemia, HTN and CKD. Precautions/Limitations fall precautions (no sternal precautions) Heart Disease Risk Factors High blood pressure;Lack of physical activity;Dislipidemia;Age;Gender Cognitive Status Examination Orientation orientation to person, place and time Level of Consciousness alert Follows Commands and Answers Questions 100% of the time Personal Safety and Judgment intact Memory intact Attention No deficits were identified Organization/Problem Solving No deficits were identified Executive Function No deficits were identified Sensory Examination Sensory Quick Adds No deficits were identified Pain Assessment Patient Currently in Pain Yes, see Vital Sign flowsheet (3/10 L sided incisional pain and chest tube pain ) Range of Motion (ROM) ROM Comment B UE AROM WFL Strength Strength Comments B UE MMT NT formally Bed Mobility Skill: Scooting/Bridging Level of Clements: Scooting/Bridging contact guard Physical Assist/Nonphysical Assist: Scooting/Bridging 1 person assist;verbal cues Bed Mobility Skill: Sit to Supine Level of Clements: Sit/Supine minimum assist (75% patients effort) Physical Assist/Nonphysical Assist: Sit/Supine 1 person assist;verbal cues Transfer Skill: Bed to Chair/Chair to Bed Level of Clements: Bed to Chair contact guard Physical Assist/Nonphysical Assist: Bed to Chair 1 person assist;verbal cues Transfer Skill: Sit to Stand Level of Clements: Sit/Stand contact guard Physical Assist/Nonphysical Assist: Sit/Stand 1 person assist;verbal cues Lower Body Dressing Level of Clements: Dress Lower Body maximum assist (25% patients effort) Physical Assist/Nonphysical Assist: Dress Lower Body 1 person assist Instrumental Activities of Daily Living (IADL) Previous Responsibilities work;driving;finances;medication management;yardwork;shopping;laundry;housekeeping;meal prep Activities of Daily Living Analysis Impairments Contributing to Impaired Activities of Daily Living pain;post surgical precautions;strength decreased;balance impaired General Therapy Interventions Planned Therapy Interventions ADL retraining;transfer training;home program guidelines;progressive activity/exercise;risk factor education Clinical Impression Criteria for Skilled Therapeutic Interventions Met yes, treatment indicated OT Diagnosis decreased ADL's and functional mobility Influenced by the following impairments impaired overall decreased strength, surgical precautions, balance. Functional limitations due to impairments impaired overall decreased strength, surgical precautions,balance Rehab Potential good, to achieve stated therapy goals Rehab potential affected by good family support Therapy Frequency 2 times/day Predicted Duration of Therapy Intervention (days/wks) 4 days Anticipated Discharge Disposition Home with Assist;Home with Outpatient Therapy (family A as needed with ADL/IADL's and OP CR at [facility]. ) Risks and Benefits of Treatment have been explained. Yes Patient, Family & other staff in agreement with plan of care Yes Total Evaluation Time Total Evaluation Time (Minutes) 15 A DELIVERY DRIVER Barbara Gonzalez PA-C - 05/23/2015 9:03 AM CST [facility] Cardiovascular and Thoracic Surgery Daily Note Assessment and Plan: POD#1 s/p ROBOTIC CORONARY ARTERY BYPASS (RIVAS TO LAD) (OFF PUMP) By Dr. Celis -CVS: HR 70s, SBP: 100s/60s, off gtt's, ASA, BB, statin pod#3 -Resp: Extubated per protocol, sating well on 2L NC, IS -Neuro: Grossly intact, pain controlled, add flexeril for stiffness -Renal: good UO, Crea: 0.97, will start lasix daily, bid tomorrow -GI: Continue bowel regimen -: Garsia in place, limited mobility, accurate Is & Os -Endo: SSI, pre-op A1C 6.0 -FEN: replete lytes as needed, Active Diet Order Regular Diet Adult -ID: WBC: 12.5, Temp (24hrs), Av.1 ??F (36.7 ??C), Min:81.3 ??F (27.4 ??C), Max:100 ??F (37.8 ??C), comeplting everette-op abx -Heme: Hgb: 12.5, plt: 184, acute blood loss anemia, thrombocytopenia -Proph: PCD, ASA, BB, statin pod#3 -Dispo: ICU-->St 33 Interval History: Sitting up in chair, enjoying omlet, pain controlled, feeling a little Stiff Medications: ??? sodium chloride (PF) 3 mL Intravenous Q8H ??? insulin aspart Subcutaneous TID w/meals ??? acetaminophen 650 mg Oral Q6H Or ??? acetaminophen 650 mg Rectal Q6H ??? senna-docusate 1-2 tablet Oral BID ??? polyethylene glycol 17 g Oral Daily ??? pantoprazole 40 mg Intravenous Daily ??? ceFAZolin 1 g Intravenous Q8H ??? aspirin 81 mg Oral or NG Tube Daily ??? lidocaine 1 patch Transdermal Q24h And ??? lidocaine Transdermal Q24H And ??? lidocaine Transdermal Q8H ??? metoprolol 5 mg Intravenous Q6H naloxone, IV fluid REPLACEMENT ONLY, glucose OR dextrose OR glucagon, sodium chloride (PF), sodium chloride (PF), albumin human, insulin aspart, HYDROmorphone, oxyCODONE, ondansetron OR ondansetron, bisacodyl, albuterol, hydrALAZINE, potassium chloride SA, potassium chloride, potassium chloride, potassium chloride with lidocaine, potassium chloride, magnesium sulfate, magnesium sulfate, magnesium sulfate, magnesium sulfate potassium phosphate (KPHOS) in D5W IV, potassium phosphate (KPHOS) in D5W IV, potassium phosphate (KPHOS) in D5W IV, potassium phosphate (KPHOS) in D5W IV, potassium phosphate (KPHOS) in D5W IV, metoprolol OR metoprolol Physical Exam: Vitals were reviewed Blood pressure 107/65, temperature 96.6 ??F (35.9 ??C), resp. rate 32, height 1.676 m (5' 6), weight 76 kg (167 lb 8.8 oz), SpO2 99 %. Rhythm: NSR Lungs: clear Cardiovascular: s1/s2, no m/r/g Abdomen: s/nt/nd Extremeties: no LE edema Incision: cdi CT: to suction Weight: Filed Vitals: 05/22/15 0532 05/23/15 0500 Weight: 74.872 kg (165 lb 1 oz) 76 kg (167 lb 8.8 oz) Data: Labs: WBC 12.5 05/23/2015 RBC 3.90 05/23/2015 HGB 12.5 05/23/2015 HCT 34.9 05/23/2015 No components found with this name: mct MCV 90 05/23/2015 MCH 32.1 05/23/2015 MCHC 35.8 05/23/2015 RDW 13.2 05/23/2015 PLT 184 05/23/2015 Last Basic Metabolic Panel: NA 140 05/23/2015 POTASSIUM 3.4 05/23/2015 CHLORIDE 105 05/23/2015 DAJA 7.7 05/23/2015 CO2 27 05/23/2015 BUN 18 05/23/2015 CR 0.97 05/23/2015 GLC 107 05/23/2015 CXR: IMPRESSION: Stable postoperative chest. Barbara Gonzalez PA-C Pager #: [phone] A DELIVERY DRIVER Associated attestation - Reymundo Slaughter MD - 05/24/2015 2:32 PM [facility]ZZA DELIVERY DRIVER Physician Attestation I agree with the information in this note. Karsten Ballesteros RN - 05/22/2015 7:18 PM CST Pt came from OR at 1210. He was only on precedex and no pressors. Onced settled the patient he became hypertensive and nitro drip was started and later nicardipine too. Pt was extubated at 1630 and didwell currently he is on 2L of NC. Tolerating ice chips and water sips. He was started on insulin perprotocol, on alg 3 q1h. Has received prn dilaudid for pain and also place a lidocaine patch close byhis incision site. Potassium and mg were replaced. Pt got up to chair at 1837 and was in the chair for 15 minutes. Family visited. Yan and nicardipine drips were stopped. A DELIVERY DRIVER Dewayne Garcia RT - 05/22/2015 4:58 PM CST Pt extubated to 40% aerosol mask. No stridor noted. Will continue to follow. Dewayne Garcia A DELIVERY DRIVER Karsten Rogers RN - 05/22/2015 4:35 PM CST Pt restrains dc. Pt was extubated and agreed not to pull at any tubes or cables. A DELIVERY DRIVER Andrea Alberto MD - 05/22/2015 2:32 PM CST 65 YOM former smoker, hyperlipidemia, hypertension, ? CKD S/p Left mini thoracotomy for off Pump, off pump beating heart RIVAS to LAD. Temp: 95.5 ??F (35.3 ??C) BP: 139/82 mmHg Heart Rate: 89 Resp: 17 SpO2: 100 % O2 Device: Mechanical Ventilator Oxygen Delivery: 3 LPM Sedated. Opens eyes. Responding to voice commands. Chest; Clear anteriorly. Thoracotomy incision in left chest covered with dressing. Left pleural space chest tube Abdomen: Soft, non-tender Neurology: No obvious focal deficits Recent Labs Lab 05/22/15 1255 05/22/15 1001 05/22/15 0807 PH 7.34* 7.41 7.39 PCO2 50* 42 52* PO2 144* 98 455* HCO3 27 27 31* O2PER [id number]% -- -- Recent Labs Lab 05/22/15 1255 05/22/15 1115 05/22/15 1001 NA 141 142 137 POTASSIUM 3.9 3.8 3.7 CHLORIDE 107 109 -- CO2 27 24 -- BUN 20 21 -- CR 0.98 0.96 -- GLC 151* 123* -- DAJA 7.9* 7.8* -- Recent Labs Lab 05/22/15 1255 05/22/15 1115 05/22/15 1001 WBC 15.2* 2.1* -- RBC 4.16* 4.14* -- HGB 13.3 13.6 12.2* HCT 36.8* 36.5* -- PLT 186 106* -- CXR: The endotracheal tube terminates approximately 3 cm from the sergio. There is a right pulmonaryartery catheter which terminates in the right main pulmonary artery. Lung volumes are low. Left chest tube in place. No pneumothorax. Assessment 1. Single vessel CABG 2 Post op ventilator need. 3 Prior history of smoking Plan Follow ABG SBT per protocol when recovers from anesthesia Will follow Andrea Alberto . Did well with SBT. Will extubate Andrea Alberto A DELIVERY DRIVER documented in this encounter Consult Notes Tamy Tejada RD, LD - 05/22/2015 2:24 PM CSTAssociated Order(s): NUTRITION SERVICES ADULT IP CONSULT CARDIAC SURGERY NUTRITION CONSULT Received standing order to assess and educate patient Patient inappropriate for instructions at this time Will follow and complete assessment once patient is extubated and/or transferred to medical unit Tamy Tejada RD, LD, [facility] Clinical Dietitian - [facility] A DELIVERY DRIVER documented in this encounter Miscellaneous Notes Plan of Care - Deepa Cha OT - 05/25/2015 11:55 AM CST Problem: Goal Outcome Summary Goal: Goal Outcome Summary Cardiac Rehab Discharge Summary Reason for therapy discharge: Discharged to home with outpatient therapy. Progress towards therapy goal(s). See goals on Care Plan in Epic electronic health record for goal details. Goals partially met. Barriers to achieving goals: discharge from facility. Therapy recommendation(s): Continued therapy is recommended. Rationale/Recommendations: OP CR at [facility]; discharged prior to session, see previous documenation for current function; assist at home with IADL's due to post operative precautions.. A DELIVERY DRIVER Plan of Care - Roro Hall RN - 05/25/2015 11:32 AM CST Problem: Goal Outcome Summary Goal: Goal Outcome Summary Outcome: No Change VSS. Pain controlled with oxycodone. Adequate I&Os. Up with SBA. Incisions CD&I with dermabond. DC instructions reviewed and well received by pt/. DC to home. A DELIVERY DRIVER Plan of Care - Marya Tinoco RN - 05/25/2015 4:28 AM CST Problem: Goal Outcome Summary Goal: Goal Outcome Summary Outcome: Improving Left CT removal site dressing CDI; no drainage visible. Left chest incision open to air; no drainage; slight bruising. Mag replaced on overnight shift; recheck scheduled for this morning. Indep in room; voiding in urinal and in BR; no BM yet, + BS. Pain controlled with Oxycodone; effective and pt was able to sleep thru most of the night. Tolerating diet; no c/o NV. Cough drop given for sore throat. Plan is to possibly DC to Home today. A DELIVERY DRIVER Plan of Care - Roro Hall RN - 05/24/2015 2:45 PM CST Problem: Goal Outcome Summary Goal: Goal Outcome Summary Outcome: No Change VSS. Pain controlled with po pain meds. Up ambulating with SBA. Adequate I&Os. Using IS, fluttervalve, and C&DB. Passing flatus, no BM yet. A DELIVERY DRIVER Plan of Lashawn - Yue Natarajan OT - 05/24/2015 9:11 AM CST Problem: Goal Outcome Summary Goal: Goal Outcome Summary OT/CR: Pt participated in exercise of hallway ambulation x 325' pushing wheelchair for support with SBA. Mild SOB and fatigue with walk. Stable CV response as BP increased to 146/80 (133/76), HR 106, spO2 94-95% on RA. Pain 3/10. Supervision for transfers. Recommend discharge home with phase II OP CR at [facility]. A DELIVERY DRIVER Plan of Care - Katty Davenport, JAGDEEP - 05/24/2015 6:32 AM CST Problem: Goal Outcome Summary Goal: Goal Outcome Summary Outcome: No Change VSS. Afebrile. Tele SR. Neuros intact. LS clear, IS and acapella encouraged. BS active, reports passing flatus. Tolerating regular diet. Denies nausea. Adequate urine output via garsia, will dc in am. CMS intact, pulses palpable. L chest d/i with surrounding ecchymosis. Slept between cares. A DELIVERY DRIVER Plan of Care - Deepa Dent OT - 05/23/2015 11:14 AM CST Problem: Goal Outcome Summary Goal: Goal Outcome Summary OT/CR: Eval completed and treatment initiated. 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 Pt currently limited due to chest tube/incisional pain and sciatica pain in R LE, weakness and requires CGA/min A for functional transfers and bed mobility. Pt completed 3 standing calisthenics for approx 1 min each with fatigue and some chest tube and sciatica pain and with BP increasing from 113/66 at rest to 158/77 during exercise standing. Anticipate home with family A as needed and oP CR at [facility] at discharge. A DELIVERY DRIVER Plan of Care - Rosa Washburn RN - 05/23/2015 5:51 AM CST Problem: Goal Outcome Summary Goal: Goal Outcome Summary Outcome: Improving Pt progressing along pathway. Drips weaned and lines out. Minimal CT output; good UOP. Adequate paincontrol. Tolerating progression of activity. A DELIVERY DRIVER Op Note - Lalita, Chapo Tipton MD - 05/22/2015 12:42 PM CST PREOPERATIVE DIAGNOSES: 1. Severe single-vessel coronary artery disease. 2. Hypertension. 3. Hyperlipidemia. POSTOPERATIVE DIAGNOSES: 1. Severe single-vessel coronary artery disease. 2. Hypertension. 3. Hyperlipidemia. SURGICAL PROCEDURES PERFORMED: 1. Left video thoracoscopy. 2. Robotic-assisted coronary artery bypass grafting x1 with left internal mammary artery to left anterior descending artery. 3. Left mini-thoracotomy for direct off-pump beating heart anastomosis between the left internal mammary graft and the left anterior descending. SURGEON: Chapo Celis MD PREFABRICATOR: Aisha García MD SECOND DISTRICT ADMINISTRATOR: José Miguel Mcclelland PA-C INDICATION FOR SURGERY: Anthony Chun is a 65-year-old gentleman who has multiple cardiac risk factors including hypertension and hyperlipidemia. He presented with exertional chest discomfort. Cardiac workup revealed a severe proximal stenosis of the left anterior descending artery which also involvedthe distal circumflex artery. Due to this finding, the patient was recommended to refer to cardiac surgery for bypass grafting surgery by Dr. Alton Flowers. Based on the patient's anatomy, we recommended robotic-assisted coronary artery bypass grafting surgery with RIVAS to LAD. The benefits and risks of surgery were explained to the patient, and then the consent was obtained. SURGICAL PROCEDURE: The patient was taken to the operating room. He was intubated. General anesthesia was given. His chest, abdomen and bilateral lower extremities were prepped and draped in sterile fashion. We then deflated the left lung. We made 3 trocar incisions along the third, fifth and seventh i ntercostal space. We inserted the camera port at the fifth intercostal space. We inserted the camera, and under the guidance of a videoscope, we inserted a robotic spatula to the third intercostal space, and the robotic bipolar grasper through the seventh intercostal space. We then carefully dissectedthe left internal mammary artery out as a pedicle graft. We were able to dissect distally all the way down to its distal bifurcation. At this time, we gave the heparin. We divided the distal end of theLIMA graft. We also opened the pericardium longitudinally and identified the targeted segment and marked the appropriate intercostal space, which is the fourth intercostal space. At this time, we removed the robotic instruments. We made a 5 cm incision along the fourth intercostal space of the left side. We placed an Estech retractor in. We opened the pericardium. We prepared the distal end of the RIVAS graft which has excellent blood flow. We then placed a myocardial stabilization device, Octopus device, to stabilize the mid segment of the LAD. We placed a pair of retractor tapes to temporarily occlude the LAD, and placed a 1.5 mm intracoronary shunt. We then brought down the distal end of the RIVAS graft for an end-to-side anastomosis. A 7-0 Prolene suture was used for the continuous running anast omosis between the RIVAS graft and the LAD. The hemostasis is satisfactory, and we removed the intracoronary shunt. We used a hand-held Doppler to Doppler the flow. The flow signal was excellent. We neutralized the effect of the heparin with protamine. Hemostasis was satisfactory. We placed a 28-Frenchchest tube into the left pleural space. We used two #5 Ethibond sutures to close the intercostal space. The subcutaneous muscle fascia, skin and subcutaneous tissue were closed with the Vicryl sutures.The patient tolerated the procedure well, and he was transferred to the surgical intensive care unit. CHAPO CELIS MD MT: [id number] Name: ANTHONY CHUN Account: [id number] : 1950 Procedure Date: 05/22/2015 Document: [id number] cc: Alton Rios MD A DELIVERY DRIVER Brief Op Note - Brandon García MD - 05/22/2015 11:46 AM CST [facility] Brief Operative Note Pre-operative diagnosis: cad Post-operative diagnosis * No post-op diagnosis entered * Procedure: Procedure(s): ROBOTIC CORONARY ARTERY BYPASS (RIVAS TO LAD) (OFF PUMP) Surgeon(s): Surgeon(s) and Role: * Chapo Celis MD - Primary Estimated blood loss: 30 mL Specimens: * No specimens in log * Findings: Good RIVAS and good LAD target A DELIVERY DRIVER documented in this encounter Plan of Treatment Pending Results Name Type Priority Associated Diagnoses Date/Ti me INR AND PTT PANEL Lab Routine 05/22/2015 11:15 AM [facility] DELIVERY DRIVER Scheduled Orders Name Type Priority Associated Diagnoses Order S chedule XR Chest 2 Views Imaging Routine Enter condi tion for order release in comm ents for 1 Occurrences sta rting 05/22/2015 Scheduled Referrals Name Type Priority Associated Diagnoses Order S chedule Cardiac Rehab Referral Referral Routine S/P CABG (coronary Ordered: 05/25/2015 artery bypass graft) documented as of this encounter Procedures Procedure Name Priority Date/Time Associated Comments Diagnosis GLUCOSE BY METER Routine 05/25/2015 7:17 AM Resul ts for this PIZZA DELIVERY DRIVER procedure are i n the results section. MAGNESIUM Timed 05/25/2015 6:35 AM Results f or this PIZZA DELIVERY DRIVER procedure are i n the results section. BASIC METABOLIC PANEL Routine 05/25/2015 6:35 AM Results for this PIZZA DELIVERY DRIVER procedure are i n the results section. CBC WITH PLATELETS Routine 05/25/2015 6:35 AM Res ults for this PIZZA DELIVERY DRIVER procedure are i n the results section. GLUCOSE BY METER Routine 05/24/2015 9:59 PM Resul ts for this PIZZA DELIVERY DRIVER procedure are i n the results section. GLUCOSE BY METER Routine 05/24/2015 5:04 PM Resul ts for this PIZZA DELIVERY DRIVER procedure are i n the results section. GLUCOSE BY METER Routine 05/24/2015 12:49 Results for this PM PIZZA DELIVERY DRIVER procedure are i n the results section. GLUCOSE BY METER Routine 05/24/2015 8:06 AM Resul ts for this PIZZA DELIVERY DRIVER procedure are i n the results section. XR CHEST 2 VIEWS Routine 05/24/2015 8:05 AM Resul ts for this PIZZA DELIVERY DRIVER procedure are i n the results section. MAGNESIUM Routine 05/24/2015 7:23 AM Results f or this PIZZA DELIVERY DRIVER procedure are i n the results section. BASIC METABOLIC PANEL Routine 05/24/2015 7:23 AM Results for this PIZZA DELIVERY DRIVER procedure are i n the results section. CBC WITH PLATELETS Routine 05/24/2015 7:23 AM Res ults for this PIZZA DELIVERY DRIVER procedure are i n the results section. GLUCOSE BY METER Routine 05/24/2015 4:22 AM Resul ts for this PIZZA DELIVERY DRIVER procedure are i n the results section. GLUCOSE BY METER Routine 05/23/2015 9:09 PM Resul ts for this PIZZA DELIVERY DRIVER procedure are i n the results section. GLUCOSE BY METER Routine 05/23/2015 5:13 PM Resul ts for this PIZZA DELIVERY DRIVER procedure are i n the results section. GLUCOSE BY METER Routine 05/23/2015 3:20 PM Resul ts for this PIZZA DELIVERY DRIVER procedure are i n the results section. GLUCOSE BY METER Routine 05/23/2015 11:46 Results for this AM PIZZA DELIVERY DRIVER procedure are i n the results section. GLUCOSE BY METER Routine 05/23/2015 9:58 AM Resul ts for this PIZZA DELIVERY DRIVER procedure are i n the results section. GLUCOSE BY METER Routine 05/23/2015 8:10 AM Resul ts for this PIZZA DELIVERY DRIVER procedure are i n the results section. EKG 12-LEAD, TRACING Routine 05/23/2015 7:41 AM R esults for this ONLY PIZZA DELIVERY DRIVER procedure are i n the results section. XR CHEST PORT 1 VIEW Routine 05/23/2015 5:15 AM R esults for this PIZZA DELIVERY DRIVER procedure are i n the results section. IONIZED CALCIUM Routine 05/23/2015 4:31 AM Result s for this PIZZA DELIVERY DRIVER procedure are i n the results section. PHOSPHORUS Routine 05/23/2015 4:30 AM Results f or this PIZZA DELIVERY DRIVER procedure are i n the results section. MAGNESIUM Routine 05/23/2015 4:30 AM Results f or this PIZZA DELIVERY DRIVER procedure are i n the results section. HEMOGLOBIN A1C Routine 05/23/2015 4:30 AM Results for this PIZZA DELIVERY DRIVER procedure are i n the results section. BASIC METABOLIC PANEL Routine 05/23/2015 4:30 AM Results for this PIZZA DELIVERY DRIVER procedure are i n the results section. CBC WITH PLATELETS Routine 05/23/2015 4:30 AM Res ults for this PIZZA DELIVERY DRIVER procedure are i n the results section. GLUCOSE BY METER Routine 05/23/2015 4:23 AM Resul ts for this PIZZA DELIVERY DRIVER procedure are i n the results section. GLUCOSE BY METER Routine 05/23/2015 2:13 AM Resul ts for this PIZZA DELIVERY DRIVER procedure are i n the results section. GLUCOSE BY METER Routine 05/23/2015 12:04 Results for this AM PIZZA DELIVERY DRIVER procedure are i n the results section. GLUCOSE BY METER Routine 05/22/2015 10:22 Results for this PM PIZZA DELIVERY DRIVER procedure are i n the results section. GLUCOSE BY METER Routine 05/22/2015 9:16 PM Resul ts for this PIZZA DELIVERY DRIVER procedure are i n the results section. GLUCOSE BY METER Routine 05/22/2015 8:17 PM Resul ts for this PIZZA DELIVERY DRIVER procedure are i n the results section. GLUCOSE BY METER Routine 05/22/2015 7:02 PM Resul ts for this PIZZA DELIVERY DRIVER procedure are i n the results section. GLUCOSE BY METER Routine 05/22/2015 6:01 PM Resul ts for this PIZZA DELIVERY DRIVER procedure are i n the results section. GLUCOSE BY METER Routine 05/22/2015 5:07 PM Resul ts for this PIZZA DELIVERY DRIVER procedure are i n the results section. ISTAT GASES Routine 05/22/2015 4:15 PM Results f or this ELECTROLYTES ARTERIAL PIZZA DELIVERY DRIVER proced ure are in POCT the results section. GLUCOSE BY METER Routine 05/22/2015 4:12 PM Resul ts for this PIZZA DELIVERY DRIVER procedure are i n the results section. GLUCOSE BY METER Routine 05/22/2015 3:39 PM Resul ts for this PIZZA DELIVERY DRIVER procedure are i n the results section. GLUCOSE BY METER Routine 05/22/2015 2:44 PM Resul ts for this PIZZA DELIVERY DRIVER procedure are i n the results section. BLOOD GAS ARTERIAL WITH STAT 05/22/2015 12:55 Results for this OXYHEMOGLOBIN PM PIZZA DELIVERY DRIVER procedure are in the results section. INR STAT 05/22/2015 12:55 Results for this PM PIZZA DELIVERY DRIVER procedure are i n the results section. PHOSPHORUS STAT 05/22/2015 12:55 Results for this PM PIZZA DELIVERY DRIVER procedure are i n the results section. PARTIAL THROMBOPLASTIN STAT 05/22/2015 12:55 R esults for this TIME PM PIZZA DELIVERY DRIVER procedure are i n the results section. MAGNESIUM STAT 05/22/2015 12:55 Results for this PM PIZZA DELIVERY DRIVER procedure are i n the results section. IONIZED CALCIUM STAT 05/22/2015 12:55 Results for this PM PIZZA DELIVERY DRIVER procedure are i n the results section. BASIC METABOLIC PANEL STAT 05/22/2015 12:55 Re sults for this PM PIZZA DELIVERY DRIVER procedure are i n the results section. CBC WITH PLATELETS STAT 05/22/2015 12:55 Resul ts for this PM PIZZA DELIVERY DRIVER procedure are i n the results section. LACTIC ACID STAT 05/22/2015 12:53 Results for this PM PIZZA DELIVERY DRIVER procedure are i n the results section. XR POST OPERATIVE STAT 05/22/2015 12:40 Result s for this IMAGING [place] PM PIZZA DELIVERY DRIVER procedure ar e in the results section. GLUCOSE BY METER Routine 05/22/2015 12:20 Results for this PM PIZZA DELIVERY DRIVER procedure are i n the results section. EKG 12-LEAD, TRACING STAT 05/22/2015 12:19 Res ults for this ONLY PM PIZZA DELIVERY DRIVER procedure are i n the results section. INR AND PTT PANEL Routine 05/22/2015 11:15 AM PIZZA DELIVERY DRIVER CBC WITH PLATELETS & Routine 05/22/2015 11:15 Res ults for this DIFFERENTIAL AM PIZZA DELIVERY DRIVER procedure are i n the results section. INR Routine 05/22/2015 11:15 Results for this AM PIZZA DELIVERY DRIVER procedure are i n the results section. PARTIAL THROMBOPLASTIN Routine 05/22/2015 11:15 R esults for this TIME AM PIZZA DELIVERY DRIVER procedure are i n the results section. FIBRINOGEN ACTIVITY Routine 05/22/2015 11:15 Resu lts for this AM PIZZA DELIVERY DRIVER procedure are i n the results section. ACTIVATED CLOTTING TIME Routine 05/22/2015 11:15 Results for this POCT AM PIZZA DELIVERY DRIVER procedure are i n the results section. BASIC METABOLIC PANEL Routine 05/22/2015 11:15 Re sults for this AM PIZZA DELIVERY DRIVER procedure are i n the results section. ISTAT GASES Routine 05/22/2015 10:42 Results for this ELECTROLYTES ARTERIAL AM PIZZA DELIVERY DRIVER proced ure are in POCT the results section. ACTIVATED CLOTTING TIME Routine 05/22/2015 10:38 Results for this POCT AM PIZZA DELIVERY DRIVER procedure are i n the results section. ACTIVATED CLOTTING TIME Routine 05/22/2015 10:12 Results for this POCT AM PIZZA DELIVERY DRIVER procedure are i n the results section. ISTAT GASES Routine 05/22/2015 10:01 Results for this ELECTROLYTES ARTERIAL AM PIZZA DELIVERY DRIVER proced ure are in POCT the results section. ACTIVATED CLOTTING TIME Routine 05/22/2015 9:59 AM Results for this POCT PIZZA DELIVERY DRIVER procedure are i n the results section. ISTAT GASES Routine 05/22/2015 8:52 AM Results f or this ELECTROLYTES ARTERIAL PIZZA DELIVERY DRIVER proced ure are in POCT the results section. ISTAT GASES Routine 05/22/2015 8:07 AM Results f or this ELECTROLYTES ARTERIAL PIZZA DELIVERY DRIVER proced ure are in POCT the results section. ACTIVATED CLOTTING TIME Routine 05/22/2015 8:06 AM Results for this POCT PIZZA DELIVERY DRIVER procedure are i n the results section. CORONARY ARTERY BYPASS 05/22/2015 7:18 AM cad GRAFT, ROBOT-ASSISTED PIZZA DELIVERY DRIVER Special Needs Wears glasses. BLOOD COMPONENT Routine 05/22/2015 5:48 AM PIZZA DELIVERY DRIVER Re sults for this procedure are in the resu lts section. BLOOD COMPONENT Routine 05/22/2015 5:48 AM PIZZA DELIVERY DRIVER Re sults for this procedure are in the resu lts section. BLOOD COMPONENT Routine 05/22/2015 5:48 AM PIZZA DELIVERY DRIVER Re sults for this procedure are in the resu lts section. BLOOD COMPONENT Routine 05/22/2015 5:48 AM PIZZA DELIVERY DRIVER Re sults for this procedure are in the resu lts section. ABO/RH TYPE AND SCREEN STAT 05/22/2015 5:48 AM PIZZA DELIVERY DRIVER Results for this procedure are in the resu lts section. documented in this encounter Results (ABNORMAL) Glucose by meter (05/25/2015 7:17 AM PIZZA DELIVERY DRIVER) athologist Signature Glucose 149 (H) 70 - 99 POINT OF CARE mg/dL TEST, GLUCOSE Specimen Anatomical Collection Method Collection Time Receive d Time (Source) Location / / Volume Laterality 05/25/2015 7:17 AM 5 7:20 PIZZA DELIVERY DRIVER AM PIZZA DELIVERY DRIVER Chapo Celis MD LAB - BEAKER POCT Performing Organization Address City/State/ZIP Code Phon e Number FV POINT OF CARE TEST, GLUCOSE POINT OF CARE TEST, GLUCOSE Magnesium (05/25/2015 6:35 AM PIZZA DELIVERY DRIVER) athologist Signature Magnesium 2.2 1.6 - 2.3 [place] mg/dL [facility] Specimen Anatomical Collection Method Collection Time Receive d Time (Source) Location / / Volume Laterality Blood specimen 05/25/2015 6:35 AM 015 6:53 (specimen) PIZZA DELIVERY DRIVER AM PIZZA DELIVERY DRIVER Chapo Celis MD LAB - BLOOD ORDERABLES Performing Organization Address City/State/ZIP Code Phon e Number [facility] [address] [id number] [phone] [facility] [address] [address], [place] [phone] (ABNORMAL) Basic metabolic panel (05/25/2015 6:35 AM PIZZA DELIVERY DRIVER) athologist Signature Sodium 139 133 - 144 [place] mmol/L [facility] Potassium 3.8 3.4 - 5.3 [place] mmol/L [facility] Chloride 105 94 - 109 [place] mmol/L [facility] Carbon Dioxide 28 20 - 32 [place] mmol/L [facility] Anion Gap 6 3 - 14 [place] mmol/L [facility] Glucose 108 (H) 70 - 99 [place] mg/dL [facility] Urea Nitrogen 15 7 - 30 [place] mg/dL [facility] Creatinine 0.97 0.66 - [place] 1.25 mg/dL [facility] GFR Estimate 77 >60 [place] mL/min/1.[address] Comment: Non GFR Calc GFR Estimate If Black >90 >60 mL/min/1.7m2 F [facility] GFR Calc HOSP ITAL Calcium 8.3 (L) 8.5 - 10.1 mg/dL [facility] Specimen Anatomical Collection Method Collection Time Receive d Time (Source) Location / / Volume Laterality Blood specimen 05/25/2015 6:35 AM 015 6:53 (specimen) PIZZA DELIVERY DRIVER AM PIZZA DELIVERY DRIVER José Miguel Mcclelland PA-C LAB - BLOOD ORDERABLES Performing Organization Address City/State/ZIP Code Phon e Number [facility] [address] [phone] [facility] [address] [address], [facility] [phone] (ABNORMAL) CBC with platelets (05/25/2015 6:35 AM PIZZA DELIVERY DRIVER) Analysis Performed At Patho logist Time Signature WBC 9.0 4.0 - 11.0 [place] 10e9/L [facility] RBC Count 4.05 (L) 4.4 - 5.9 [place] 10e12/L [facility] Hemoglobin 13.0 (L) 13.3 - [place] 17.7 g/dL [facility] Hematocrit 36.5 (L) 40.0 - [place] 53.0 % [facility] MCV 90 78 - 100 [facility] MCH 32.1 26.5 - [place] 33.0 pg [facility] MCHC 35.6 31.5 - [place] 36.5 g/dL [facility] RDW 12.8 10.0 - [place] 15.0 % [facility] Platelet Count 175 150 - 450 [place] 10e9/L [facility] Specimen Anatomical Collection Method Collection Time Receive d Time (Source) Location / / Volume Laterality Blood specimen 05/25/2015 6:35 AM 015 6:53 (specimen) PIZZA DELIVERY DRIVER AM PIZZA DELIVERY DRIVER José Miguel Mcclelland PA-C LAB - BLOOD ORDERABLES Performing Organization Address City/State/ZIP Code Phon e Number [facility] [address] [place] [address] [facility] [address] [place] [address], [place] [phone] (ABNORMAL) Glucose by meter (05/24/2015 9:59 PM PIZZA DELIVERY DRIVER) P athologist Signature Glucose 112 (H) 70 - 99 POINT OF CARE mg/dL TEST, GLUCOSE Specimen Anatomical Collection Method Collection Time Receive d Time (Source) Location / / Volume Laterality 05/24/2015 9:59 PM 5 PIZZA DELIVERY DRIVER 10:00 PM PIZZA DELIVERY DRIVER Chapo WHARTON - JOAO POCT Performing Organization Address City/State/ZIP Code Phon e Number FV POINT OF CARE TEST, GLUCOSE POINT OF CARE TEST, GLUCOSE (ABNORMAL) Glucose by meter (05/24/2015 5:04 PM PIZZA DELIVERY DRIVER) P athologist Signature Glucose 146 (H) 70 - 99 POINT OF CARE mg/dL TEST, GLUCOSE Specimen Anatomical Collection Method Collection Time Receive d Time (Source) Location / / Volume Laterality 05/24/2015 5:04 PM 5 5:10 PIZZA DELIVERY DRIVER PM PIZZA DELIVERY DRIVER Chapo SHEPHERD POCT Performing Organization Address City/State/ZIP Code Phon e Number FV POINT OF CARE TEST, GLUCOSE POINT OF CARE TEST, GLUCOSE Glucose by meter (05/24/2015 12:49 PM PIZZA DELIVERY DRIVER) P athologist Signature Glucose 92 70 - 99 POINT OF CARE mg/dL TEST, GLUCOSE Specimen Anatomical Collection Method Collection Time Receive d Time (Source) Location / / Volume Laterality 05/24/2015 12:49 05/24/2015 PM PIZZA DELIVERY DRIVER 12:55 PM PIZZA DELIVERY DRIVER Chapo WHARTON - JOAO POCT Performing Organization Address City/State/ZIP Code Phon e Number FV POINT OF CARE TEST, GLUCOSE POINT OF CARE TEST, GLUCOSE (ABNORMAL) Glucose by meter (05/24/2015 8:06 AM PIZZA DELIVERY DRIVER) P athologist Signature Glucose 121 (H) 70 - 99 POINT OF CARE mg/dL TEST, GLUCOSE Specimen Anatomical Collection Method Collection Time Receive d Time (Source) Location / / Volume Laterality 05/24/2015 8:06 AM 5 8:21 PIZZA DELIVERY DRIVER AM PIZZA DELIVERY DRIVER Chapo Celis MD LAB - JOAO POCT Performing Organization Address City/State/ZIP Code Phon e Number FV POINT OF CARE TEST, GLUCOSE POINT OF CARE TEST, GLUCOSE XR Chest 2 Views (05/24/2015 8:05 AM PIZZA DELIVERY DRIVER) Anatomical Region Laterality Modality Chest Computed Radiography Specimen (Source) Anatomical Location Collection Method / Collectio n Time Received Time / Laterality Volume Impressions 05/24/2015 9:17 AM PIZZA DELIVERY DRIVER IMPRESSION: No pneumothorax demonstrated. KAISER SHORT MD Narrative 05/24/2015 9:17 AM PIZZA DELIVERY DRIVER CHEST TWO VIEWS May 24, 2015 8:05 AM HISTORY: Status post robotic coronary ar berta bypass graft. COMPARISON: 04/22/2015. FINDINGS: Left chest tube removed, no pn eumothorax. Mild atelectasis and possibly minimal fluid at the left b ase. The cardiac silhouette is stable. Pulmonary vasculature is unremar kable. Procedure Note Kaiser Short MD - 05/24/2015Fo rmatting of this note might be different from the original. CHEST TWO VIEWS May 24, 2015 8:05 A M HISTORY: Status post robotic coronary ar berta bypass graft. COMPARISON: 04/22/2015. FINDINGS: Left chest tube removed, no pn eumothorax. Mild atelectasis and possibly minimal fluid at the left b ase. The cardiac silhouette is stable. Pulmonary vasculature is unremar kable. IMPRESSION IMPRESSION: No pneumothorax demonstrated . KAISER SHORT MD Barbara Gonzalez PA-C IMG DIAGNOSTIC IMAGING ORDER NIRU Magnesium (05/24/2015 7:23 AM PIZZA DELIVERY DRIVER) P athologist Signature Magnesium 2.3 1.6 - 2.3 [place] mg/dL [facility] Specimen Anatomical Collection Method Collection Time Receive d Time (Source) Location / / Volume Laterality Blood specimen 05/24/2015 7:23 AM 015 7:37 (specimen) PIZZA DELIVERY DRIVER AM PIZZA DELIVERY DRIVER Chapo Celis MD LAB - BLOOD ORDERABLES Performing Organization Address City/State/ZIP Code Phon e Number [facility] [address] [place] [address] [facility] [address] [place] [address], [place] [phone] (ABNORMAL) Basic metabolic panel (05/24/2015 7:23 AM PIZZA DELIVERY DRIVER) athologist Signature Sodium 138 133 - 144 [place] mmol/L [facility] Potassium 4.2 3.4 - 5.3 [place] mmol/L [facility] Chloride 105 94 - 109 [place] mmol/L [facility] Carbon Dioxide 25 20 - 32 [place] mmol/L [facility] Anion Gap 8 3 - 14 [place] mmol/L [facility] Glucose 110 (H) 70 - 99 [place] mg/dL [facility] Urea Nitrogen 16 7 - 30 [place] mg/dL [facility] Creatinine 0.97 0.66 - [place] 1.25 mg/dL [facility] GFR Estimate 78 >60 [place] mL/min/1.[address] Comment: Non GFR Calc GFR Estimate If Black >90 >60 mL/min/1.7m2 F [facility] GFR Calc HOSP ITAL Calcium 8.5 8.5 - 10.1 mg/dL [facility] Specimen Anatomical Collection Method Collection Time Receive d Time (Source) Location / / Volume Laterality Blood specimen 05/24/2015 7:23 AM 015 7:37 (specimen) PIZZA DELIVERY DRIVER AM PIZZA DELIVERY DRIVER Barbara Gonzalez PA-C LAB - BLOOD ORDERABLES Performing Organization Address City/State/ZIP Code Phon e Number [facility] [address] [place] [address] [phone] [facility] [address] [place] [address], [place] [phone] (ABNORMAL) CBC with platelets (05/24/2015 7:23 AM PIZZA DELIVERY DRIVER) Analysis Performed At Patho logist Time Signature WBC 13.2 (H) 4.0 - 11.0 [place] 10e9/L [facility] RBC Count 4.12 (L) 4.4 - 5.9 [place] 10e12/L [facility] Hemoglobin 13.6 13.3 - [place] 17.7 g/dL [facility] Hematocrit 37.6 (L) 40.0 - [place] 53.0 % [facility] MCV 91 78 - 100 [place] fl [facility] MCH 33.0 26.5 - [place] 33.0 pg [facility] MCHC 36.2 31.5 - [place] 36.5 g/dL [facility] RDW 13.3 10.0 - [place] 15.0 % [facility] Platelet Count 183 150 - 450 [place] 10e9/L [facility] Specimen Anatomical Collection Method Collection Time Receive d Time (Source) Location / / Volume Laterality Blood specimen 05/24/2015 7:23 AM 015 7:37 (specimen) PIZZA DELIVERY DRIVER AM PIZZA DELIVERY DRIVER Barbara Gonzalez PA-C LAB - BLOOD ORDERABLES Performing Organization Address City/State/ZIP Code Phon e Number [facility] [address] [address] [place] [address] [address] [address], U [phone] (ABNORMAL) Glucose by meter (05/24/2015 4:22 AM PIZZA DELIVERY DRIVER) P athologist Signature Glucose 117 (H) 70 - 99 POINT OF CARE mg/dL TEST, GLUCOSE Specimen Anatomical Collection Method Collection Time Receive d Time (Source) Location / / Volume Laterality 05/24/2015 4:22 AM 5 4:25 PIZZA DELIVERY DRIVER AM PIZZA DELIVERY DRIVER Chapo Celis MD LAB - BEAKER POCT Performing Organization Address City/State/ZIP Code Phon e Number FV POINT OF CARE TEST, GLUCOSE POINT OF CARE TEST, GLUCOSE (ABNORMAL) Glucose by meter (05/23/2015 9:09 PM PIZZA DELIVERY DRIVER) P athologist Signature Glucose 167 (H) 70 - 99 POINT OF CARE mg/dL TEST, GLUCOSE Specimen Anatomical Collection Method Collection Time Receive d Time (Source) Location / / Volume Laterality 05/23/2015 9:09 PM 5 PIZZA DELIVERY DRIVER 11:40 PM PIZZA DELIVERY DRIVER Chapo WHARTON - JO[place] POCT Performing Organization Address City/[facility]/ZIP Code Phon e Number FV POINT OF CARE TEST, GLUCOSE POINT OF CARE TEST, GLUCOSE (ABNORMAL) Glucose by meter (05/23/2015 5:13 PM PIZZA DELIVERY DRIVER) P athologist Signature Glucose 172 (H) 70 - 99 POINT OF CARE mg/dL TEST, GLUCOSE Specimen Anatomical Collection Method Collection Time Receive d Time (Source) Location / / Volume Laterality 05/23/2015 5:13 PM 5 5:21 PIZZA DELIVERY DRIVER PM PIZZA DELIVERY DRIVER Chapo WHARTON - JOAO POCT Performing Organization Address City/[facility] Code Phon e Number FV POINT OF CARE TEST, GLUCOSE POINT OF CARE TEST, GLUCOSE (ABNORMAL) Glucose by meter (05/23/2015 3:20 PM PIZZA DELIVERY DRIVER) P athologist Signature Glucose 129 (H) 70 - 99 POINT OF CARE mg/dL TEST, GLUCOSE Specimen Anatomical Collection Method Collection Time Receive d Time (Source) Location / / Volume Laterality 05/23/2015 3:20 PM 5 3:25 PIZZA DELIVERY DRIVER PM PIZZA DELIVERY DRIVER Chapo WHARTON - JOAO POCT Performing Organization Address City/[facility]/ZIP Code Phon e Number FV POINT OF CARE TEST, GLUCOSE POINT OF CARE TEST, GLUCOSE (ABNORMAL) Glucose by meter (05/23/2015 11:46 AM PIZZA DELIVERY DRIVER) P athologist Signature Glucose 128 (H) 70 - 99 POINT OF CARE mg/dL TEST, GLUCOSE Specimen Anatomical Collection Method Collection Time Receive d Time (Source) Location / / Volume Laterality 05/23/2015 11:46 05/23/2015 AM PIZZA DELIVERY DRIVER 11:50 AM PIZZA DELIVERY DRIVER Chapo WHARTON - JOAO POCT Performing Organization Address [facility]/ZIP [facility] Phon e Number FV POINT OF CARE TEST, GLUCOSE POINT OF CARE TEST, GLUCOSE (ABNORMAL) Glucose by meter (05/23/2015 9:58 AM PIZZA DELIVERY DRIVER) P athologist Signature Glucose 176 (H) 70 - 99 POINT OF CARE mg/dL TEST, GLUCOSE Specimen Anatomical Collection Method Collection Time Receive d Time (Source) Location / / Volume Laterality 05/23/2015 9:58 AM 5 PIZZA DELIVERY DRIVER 10:00 AM PIZZA DELIVERY DRIVER Chapo WHARTON - JOAO POCT Performing Organization Address City/[facility]/ZIP Code Phon e Number FV POINT OF CARE TEST, GLUCOSE POINT OF CARE TEST, GLUCOSE (ABNORMAL) Glucose by meter (05/23/2015 8:10 AM PIZZA DELIVERY DRIVER) P athologist Signature Glucose 130 (H) 70 - 99 POINT OF CARE mg/dL TEST, GLUCOSE Specimen Anatomical Collection Method Collection Time Receive d Time (Source) Location / / Volume Laterality 05/23/2015 8:10 AM 5 8:16 PIZZA DELIVERY DRIVER AM PIZZA DELIVERY DRIVER Chapo WHARTON - JOAO POCT Performing Organization Address [facility] Code Phon e Number FV POINT OF CARE TEST, GLUCOSE POINT OF CARE TEST, GLUCOSE EKG 12-lead, tracing only (05/23/2015 7:41 AM PIZZA DELIVERY DRIVER) [facility] gist Method Time Signature Interpretation ECG Click View RADIOLOGY Image link RESULTS to view waveform and result Specimen (Source) Anatomical Collection Method Collection Time Re ceived Time Location / / Volume Laterality 05/23/2015 7:41 AM PIZZA DELIVERY DRIVER Brandon García MD ECG ORDERABLES Performing Organization Address [facility]/ZIP [facility] Phon e Number RADIOLOGY RESULTS XR Chest Port 1 View (05/23/2015 5:15 AM PIZZA DELIVERY DRIVER) Anatomical Region Laterality Modality Chest Computed Radiography Specimen (Source) Anatomical Location Collection Method / Collectio n Time Received Time / Laterality Volume Impressions 05/23/2015 8:22 AM PIZZA DELIVERY DRIVER IMPRESSION: Interval surgical procedure with left-sided chest tube in place. No evidence for pneumothorax. Sub cutaneous emphysema is noted over the left chest wall. Surgical clips are seen projecting over the left upper cardiac border and infrahilar region. Lungs appear clear. Heart size is stable. IMPRESSION: Stable postoperative chest. AURELIO OBRIEN MD Narrative 05/23/2015 8:22 AM PIZZA DELIVERY DRIVER CHEST PORTABLE ONE VIEW May 23, 2015 5:15 AM HISTORY: Postoperative CVTS surgery. COMPARISON: 05/13/2015. Procedure Note Aurelio Obrien MD - 05/23/2015Form atting of this note might be different from the original. CHEST PORTABLE ONE VIEW May 23 5:15 AM HISTORY: Postoperative CVTS surgery. COMPARISON: 05/13/2015. IMPRESSION IMPRESSION: Interval surgical procedure with left-sided chest tube in place. No evidence for pneumothorax. Sub cutaneous emphysema is noted over the left chest wall. Surgical clips are seen projecting over the left upper cardiac border and infrahilar region. Lungs appear clear. Heart size is stable. IMPRESSION: Stable postoperative chest. AURELIO OBRIEN MD Brandon García MD IMG DIAGNOSTIC IMAGING ORDER NIRU Calcium ionized whole blood (05/23/2015 4:31 AM PIZZA DELIVERY DRIVER) athologist Signature Calcium Ionized 4.5 4.4 - 5.2 [place] Whole Blood mg/dL [facility] Specimen Anatomical Collection Method Collection Time Receive d Time (Source) Location / / Volume Laterality Blood specimen 05/23/2015 4:31 AM 015 4:42 (specimen) PIZZA DELIVERY DRIVER AM PIZZA DELIVERY DRIVER Brandon García MD LAB - BLOOD ORDERABLES Performing Organization Address City/State/ZIP Code Phon e Number [facility] [address] [phone] [facility] [address] [address], [place] [phone] Phosphorus (05/23/2015 4:30 AM PIZZA DELIVERY DRIVER) P athologist Signature Phosphorus 3.2 2.5 - 4.5 [place] mg/dL [facility] Specimen Anatomical Collection Method Collection Time Receive d Time (Source) Location / / Volume Laterality Blood specimen 05/23/2015 4:30 AM 015 4:42 (specimen) PIZZA DELIVERY DRIVER AM PIZZA DELIVERY DRIVER Brandon García MD LAB - BLOOD ORDERABLES Performing Organization Address City/State/ZIP Code Phon e Number [facility] [address] [address] [facility] [address] [place] [address], [place] [phone] Magnesium (05/23/2015 4:30 AM PIZZA DELIVERY DRIVER) athologist Signature Magnesium 2.3 1.6 - 2.3 [place] mg/dL [facility] Specimen Anatomical Collection Method Collection Time Receive d Time (Source) Location / / Volume Laterality Blood specimen 05/23/2015 4:30 AM 015 4:42 (specimen) PIZZA DELIVERY DRIVER AM PIZZA DELIVERY DRIVER Brandon García MD LAB - BLOOD ORDERABLES Performing Organization Address City/State/ZIP Code Phon e Number [facility] [address] [address] [facility] [address] [address], [place] [phone] (ABNORMAL) Basic metabolic panel (05/23/2015 4:30 AM PIZZA DELIVERY DRIVER) athologist Signature Sodium 140 133 - 144 [place] mmol/L [facility] Potassium 3.4 3.4 - 5.3 [place] mmol/L [facility] Chloride 105 94 - 109 [place] mmol/L [facility] Carbon Dioxide 27 20 - 32 [place] mmol/L [facility] Anion Gap 8 3 - 14 [place] mmol/L [facility] Glucose 107 (H) 70 - 99 [place] mg/dL [facility] Urea Nitrogen 18 7 - 30 [place] mg/dL [facility] Creatinine 0.97 0.66 [facility] 1.25 mg/dL [facility] GFR Estimate 77 >60 [place] mL/min/1.[address] Comment: Non GFR Calc GFR Estimate If Black >90 >60 mL/min/1.7m2 F [facility] GFR Calc HOSP ITAL Calcium 7.7 (L) 8.5 - 10.1 mg/dL [facility] Specimen Anatomical Collection Method Collection Time Receive d Time (Source) Location / / Volume Laterality Blood specimen 05/23/2015 4:30 AM 015 4:42 (specimen) PIZZA DELIVERY DRIVER AM PIZZA DELIVERY DRIVER Brandon García MD LAB - BLOOD ORDERABLES Performing Organization Address City/State/ZIP Code Phon e Number [facility] [address] [address] [phone] [facility] [address] [address], [place] [phone] (ABNORMAL) CBC with platelets (05/23/2015 4:30 AM PIZZA DELIVERY DRIVER) Analysis Performed At Patho logist Time Signature WBC 12.5 (H) 4.0 - 11.0 [place] 10e9/L [facility] RBC Count 3.90 (L) 4.4 - 5.9 [place] 10e12/L [facility] Hemoglobin 12.5 (L) 13.3 - [place] 17.7 g/dL [facility] Hematocrit 34.9 (L) 40.0 - [place] 53.0 % [facility] MCV 90 78 - 100 [facility] MCH 32.1 26.5 - [place] 33.0 pg [facility] MCHC 35.8 31.5 - [place] 36.5 g/dL [facility] RDW 13.2 10.0 - [place] 15.0 % [facility] Platelet Count 184 150 - 450 [place] 10e9/L [facility] Specimen Anatomical Collection Method Collection Time Receive d Time (Source) Location / / Volume Laterality Blood specimen 05/23/2015 4:30 AM 015 4:42 (specimen) PIZZA DELIVERY DRIVER AM PIZZA DELIVERY DRIVER Brandon García MD LAB - BLOOD ORDERABLES Performing Organization Address City/State/ZIP Code Phon e Number [facility] [address] [place] [address] [facility] [address] [place] [address], [place] [phone] Hemoglobin A1c (05/23/2015 4:30 AM PIZZA DELIVERY DRIVER) P athologist Signature Hemoglobin A1C 6.0 4.3 - 6.0 [facility] Specimen Anatomical Collection Method Collection Time Receive d Time (Source) Location / / Volume Laterality Blood specimen 05/23/2015 4:30 AM 015 4:42 (specimen) PIZZA DELIVERY DRIVER AM PIZZA DELIVERY DRIVER Brandon García MD LAB - BLOOD ORDERABLES Performing Organization Address City/[facility]/ZIP [facility] Phon e Number [facility] [address] [place] [address] [phone] [facility] [address] [place] [address], U [phone] (ABNORMAL) Glucose by meter (05/23/2015 4:23 AM PIZZA DELIVERY DRIVER) P athologist Signature Glucose 100 (H) 70 - 99 POINT OF CARE mg/dL TEST, GLUCOSE Specimen Anatomical Collection Method Collection Time Receive d Time (Source) Location / / Volume Laterality 05/23/2015 4:23 AM 5 4:25 PIZZA DELIVERY DRIVER AM PIZZA DELIVERY DRIVER Chapo WHARTON - JOAO POCT Performing Organization Address City/[facility]/ZIP Code Phon e Number FV POINT OF CARE TEST, GLUCOSE POINT OF CARE TEST, GLUCOSE (ABNORMAL) Glucose by meter (05/23/2015 2:13 AM PIZZA DELIVERY DRIVER) P athologist Signature Glucose 101 (H) 70 - 99 POINT OF CARE mg/dL TEST, GLUCOSE Specimen Anatomical Collection Method Collection Time Receive d Time (Source) Location / / Volume Laterality 05/23/2015 2:13 AM 5 2:15 PIZZA DELIVERY DRIVER AM PIZZA DELIVERY DRIVER Chapo WHARTON - BETELLO POCT Performing Organization Address City/State/ZIP Code Phon e Number FV POINT OF CARE TEST, GLUCOSE POINT OF CARE TEST, GLUCOSE (ABNORMAL) Glucose by meter (05/23/2015 12:04 AM PIZZA DELIVERY DRIVER) P athologist Signature Glucose 111 (H) 70 - 99 POINT OF CARE mg/dL TEST, GLUCOSE Specimen Anatomical Collection Method Collection Time Receive d Time (Source) Location / / Volume Laterality 05/23/2015 12:04 05/23/2015 AM PIZZA DELIVERY DRIVER 12:10 AM PIZZA DELIVERY DRIVER Chapo WHARTON - JOAO POCT Performing Organization Address City/State/ZIP Code Phon e Number FV POINT OF CARE TEST, GLUCOSE POINT OF CARE TEST, GLUCOSE (ABNORMAL) Glucose by meter (05/22/2015 10:22 PM PIZZA DELIVERY DRIVER) P athologist Signature Glucose 111 (H) 70 - 99 POINT OF CARE mg/dL TEST, GLUCOSE Specimen Anatomical Collection Method Collection Time Receive d Time (Source) Location / / Volume Laterality 05/22/2015 10:22 05/22/2015 PM PIZZA DELIVERY DRIVER 10:26 PM PIZZA DELIVERY DRIVER Chapo [place]ART[place] - [place] POCT Performing Organization Address City/State/ZIP Code Phon e Number FV POINT OF CARE TEST, GLUCOSE POINT OF CARE TEST, GLUCOSE Glucose by meter (05/22/2015 9:16 PM PIZZA DELIVERY DRIVER) P athologist Signature Glucose 96 70 - 99 POINT OF CARE mg/dL TEST, GLUCOSE Specimen Anatomical Collection Method Collection Time Receive d Time (Source) Location / / Volume Laterality 05/22/2015 9:16 PM 5 9:21 PIZZA DELIVERY DRIVER PM PIZZA DELIVERY DRIVER Chapo [place] - [place] POCT Performing Organization Address City/State/ZIP Code Phon e Number FV POINT OF CARE TEST, GLUCOSE POINT OF CARE TEST, GLUCOSE (ABNORMAL) Glucose by meter (05/22/2015 8:17 PM PIZZA DELIVERY DRIVER) P athologist Signature Glucose 114 (H) 70 - 99 POINT OF CARE mg/dL TEST, GLUCOSE Specimen Anatomical Collection Method Collection Time Receive d Time (Source) Location / / Volume Laterality 05/22/2015 8:17 PM 5 8:20 PIZZA DELIVERY DRIVER PM PIZZA DELIVERY DRIVER Chapo SHEPHERD POCT Performing Organization Address City/State/ZIP Code Phon e Number FV POINT OF CARE TEST, GLUCOSE POINT OF CARE TEST, GLUCOSE (ABNORMAL) Glucose by meter (05/22/2015 7:02 PM PIZZA DELIVERY DRIVER) P athologist Signature Glucose 106 (H) 70 - 99 POINT OF CARE mg/dL TEST, GLUCOSE Specimen Anatomical Collection Method Collection Time Receive d Time (Source) Location / / Volume Laterality 05/22/2015 7:02 PM 5 7:05 PIZZA DELIVERY DRIVER PM PIZZA DELIVERY DRIVER Chapo [place]ART[place] - [place] POCT Performing Organization Address City/State/ZIP Code Phon e Number FV POINT OF CARE TEST, GLUCOSE POINT OF CARE TEST, GLUCOSE (ABNORMAL) Glucose by meter (05/22/2015 6:01 PM PIZZA DELIVERY DRIVER) P athologist Signature Glucose 118 (H) 70 - 99 POINT OF CARE mg/dL TEST, GLUCOSE Specimen Anatomical Collection Method Collection Time Receive d Time (Source) Location / / Volume Laterality 05/22/2015 6:01 PM 5 6:05 PIZZA DELIVERY DRIVER PM PIZZA DELIVERY DRIVER Chapo [place] - [place] POCT Performing Organization Address City/State/ZIP Code Phon e Number FV POINT OF CARE TEST, GLUCOSE POINT OF CARE TEST, GLUCOSE (ABNORMAL) Glucose by meter (05/22/2015 5:07 PM PIZZA DELIVERY DRIVER) P athologist Signature Glucose 154 (H) 70 - 99 POINT OF CARE mg/dL TEST, GLUCOSE Specimen Anatomical Collection Method Collection Time Receive d Time (Source) Location / / Volume Laterality 05/22/2015 5:07 PM 5 5:11 PIZZA DELIVERY DRIVER PM PIZZA DELIVERY DRIVER Chapo [place] - [place] POCT Performing Organization Address City/State/ZIP Code Phon e Number FV POINT OF CARE TEST, GLUCOSE POINT OF CARE TEST, GLUCOSE (ABNORMAL) ISTAT gases elec art POCT (05/22/2015 4:15 PM PIZZA DELIVERY DRIVER) Patholo gist Method Time Signature pH Arterial 7.38 7.35 - POINT OF CARE 7.45 pH TEST, HANDHELD METER pCO2 Arterial 42 35 - 45 mm POINT OF CARE Hg TEST, HANDHELD METER pO2 Arterial 232 (H) 80 - 105 POINT OF CARE mm Hg TEST, HANDHELD METER Bicarbonate 25 21 - 28 POINT OF CARE Arterial mmol/L TEST, HANDHELD METER O2 Sat Arterial 100 92 - 100 % POINT OF CARE TEST, HANDHELD METER Sodium 139 133 - 144 POINT OF CARE mmol/L TEST, HANDHELD METER Potassium 3.8 3.4 - 5.3 POINT OF CARE mmol/L TEST, HANDHELD METER Hemoglobin 12.6 (L) 13.3 - POINT OF CARE 17.7 g/dL TEST, HANDHELD METER Hematocrit - 37 (L) 40.0 - POINT OF CARE POCT 53.0 %PCV TEST, HANDHELD METER Specimen Anatomical Collection Method Collection Time Receive d Time (Source) Location / / Volume Laterality 05/22/2015 4:15 PM 5 4:20 PIZZA DELIVERY DRIVER PM PIZZA DELIVERY DRIVER Chapo Celis MD LAB - [place] POCT Performing Organization Address [facility] Code Phon e Number FV POINT OF CARE TEST, HANDHELD METER POINT OF CARE TEST, HANDHELD METER (ABNORMAL) Glucose by meter (05/22/2015 4:12 PM PIZZA DELIVERY DRIVER) P athologist Signature Glucose 173 (H) 70 - 99 POINT OF CARE mg/dL TEST, GLUCOSE Specimen Anatomical Collection Method Collection Time Receive d Time (Source) Location / / Volume Laterality 05/22/2015 4:12 PM 5 4:16 PIZZA DELIVERY DRIVER PM PIZZA DELIVERY DRIVER Chapo [place] - [place] POCT Performing Organization Address [facility] Phon e Number FV POINT OF CARE TEST, GLUCOSE POINT OF CARE TEST, GLUCOSE (ABNORMAL) Glucose by meter (05/22/2015 3:39 PM PIZZA DELIVERY DRIVER) P athologist Signature Glucose 175 (H) 70 - 99 POINT OF CARE mg/dL TEST, GLUCOSE Specimen Anatomical Collection Method Collection Time Receive d Time (Source) Location / / Volume Laterality 05/22/2015 3:39 PM 5 3:45 PIZZA DELIVERY DRIVER PM PIZZA DELIVERY DRIVER Chapo [place] - [place] POCT Performing Organization Address City/[facility] Code Phon e Number FV POINT OF CARE TEST, GLUCOSE POINT OF CARE TEST, GLUCOSE (ABNORMAL) Glucose by meter (05/22/2015 2:44 PM PIZZA DELIVERY DRIVER) P athologist Signature Glucose 181 (H) 70 - 99 POINT OF CARE mg/dL TEST, GLUCOSE Specimen Anatomical Collection Method Collection Time Receive d Time (Source) Location / / Volume Laterality 05/22/2015 2:44 PM 5 2:50 PIZZA DELIVERY DRIVER PM PIZZA DELIVERY DRIVER Chapo [place] - JO[place] POCT Performing Organization Address City/State/ZIP Code Phon e Number FV POINT OF CARE TEST, GLUCOSE POINT OF CARE TEST, GLUCOSE Phosphorus (05/22/2015 12:55 PM PIZZA DELIVERY DRIVER) athologist Signature Phosphorus 3.1 2.5 - 4.5 [place] mg/dL [facility] Specimen Anatomical Collection Method Collection Time Receive d Time (Source) Location / / Volume Laterality Blood specimen 05/22/2015 12:55 5 1:13 (specimen) PM PIZZA DELIVERY DRIVER PM PIZZA DELIVERY DRIVER Brandon García MD LAB - BLOOD ORDERABLES Performing Organization Address City/State/ZIP Code Phon e Number [facility] [address] [place] [address] [phone] [facility] [address] [place] [address], [place] [phone] Magnesium (05/22/2015 12:55 PM PIZZA DELIVERY DRIVER) athologist Signature Magnesium 2.0 1.6 - 2.3 [place] mg/dL [facility] Specimen Anatomical Collection Method Collection Time Receive d Time (Source) Location / / Volume Laterality Blood specimen 05/22/2015 12:55 5 1:13 (specimen) PM PIZZA DELIVERY DRIVER PM PIZZA DELIVERY DRIVER Brandon García MD LAB - BLOOD ORDERABLES Performing Organization Address City/State/ZIP Code Phon e Number [facility] [address] [place] [address] [phone] [facility] [address] [place] [address], [place] [phone] Calcium ionized whole blood (05/22/2015 12:55 PM PIZZA DELIVERY DRIVER) athologist Signature Calcium Ionized 4.6 4.4 - 5.2 [place] Whole Blood mg/dL [facility] Specimen Anatomical Collection Method Collection Time Receive d Time (Source) Location / / Volume Laterality Blood specimen 05/22/2015 12:55 5 1:15 (specimen) PM PIZZA DELIVERY DRIVER PM PIZZA DELIVERY DRIVER Brandon García MD LAB - BLOOD ORDERABLES Performing Organization Address City/State/ZIP Code Phon e Number [facility] [address] [phone] [facility] [address] [address], [place] [phone] (ABNORMAL) Basic metabolic panel (05/22/2015 12:55 PM PIZZA DELIVERY DRIVER) P athologist Signature Sodium 141 133 - 144 [place] mmol/L [facility] Potassium 3.9 3.4 - 5.3 [place] mmol/L [facility] Chloride 107 94 - 109 [place] mmol/L [facility] Carbon Dioxide 27 20 - 32 [place] mmol/L [facility] Anion Gap 7 3 - 14 [place] mmol/L [facility] Glucose 151 (H) 70 - 99 [place] mg/dL [facility] Urea Nitrogen 20 7 - 30 [place] mg/dL [facility] Creatinine 0.98 0.66 - [place] 1.25 mg/dL [facility] GFR Estimate 76 >60 [place] mL/min/1.[address] Comment: Non GFR Calc GFR Estimate If Black >90 >60 mL/min/1.7m2 F [facility] GFR Calc HOSP ITAL Calcium 7.9 (L) 8.5 - 10.1 mg/dL [facility] Specimen Anatomical Collection Method Collection Time Receive d Time (Source) Location / / Volume Laterality Blood specimen 05/22/2015 12:55 5 1:13 (specimen) PM PIZZA DELIVERY DRIVER PM PIZZA DELIVERY DRIVER Brandon García MD LAB - BLOOD ORDERABLES Performing Organization Address City/State/ZIP Code Phon e Number [facility] [address] [place] [address] [facility] [address] [address], [place] [phone] (ABNORMAL) CBC with platelets (05/22/2015 12:55 PM PIZZA DELIVERY DRIVER) Analysis Performed At Patho logist Time Signature WBC 15.2 (H) 4.0 - 11.0 [place] 10e9/L [facility] RBC Count 4.16 (L) 4.4 - 5.9 [place] 10e12/L [facility] Hemoglobin 13.3 13.3 - [place] 17.7 g/dL [facility] Hematocrit 36.8 (L) 40.0 - [place] 53.0 % [facility] MCV 89 78 - 100 [place] fl [facility] MCH 32.0 26.5 - [place] 33.0 pg [facility] MCHC 36.1 31.5 - [place] 36.5 g/dL [facility] RDW 12.8 10.0 - [place] 15.0 % [facility] Platelet Count 186 150 - 450 [place] 10e9/L [facility] Specimen Anatomical Collection Method Collection Time Receive d Time (Source) Location / / Volume Laterality Blood specimen 05/22/2015 12:55 5 1:13 (specimen) PM PIZZA DELIVERY DRIVER PM PIZZA DELIVERY DRIVER Brandon García MD LAB - BLOOD ORDERABLES Performing Organization Address City/State/ZIP Code Phon e Number [facility] [address] [address] [facility] [address] [address], [place] [phone] (ABNORMAL) Blood gas arterial and oxyhgb (05/22/2015 12:55 PM PIZZA DELIVERY DRIVER) [facility] Method Time Signature pH Arterial 7.34 (L) 7.35 - [place] 7.45 pH [facility] pCO2 Arterial 50 (H) 35 - 45 [place] mm Hg [facility] pO2 Arterial 144 (H) 80 - 105 [place] mm Hg [facility] Bicarbonate 27 21 - 28 [place] Arterial mmol/L [facility] FIO2 Ventilator [place] 50% [facility] Oxyhemoglobin 98 92 - 100 [place] Arterial % [facility] Base Excess Art 1.3 mmol/L [facility] Comment: Reference range: -9.0 to 1.8 Specimen Anatomical Collection Method Collection Time Receive d Time (Source) Location / / Volume Laterality Blood specimen 05/22/2015 12:55 5 1:15 (specimen) PM PIZZA DELIVERY DRIVER PM PIZZA DELIVERY DRIVER Brandon García MD LAB - BLOOD ORDERABLES Performing Organization Address City/State/ZIP Code Phon e Number [facility] [address] [place] [address] [facility] [address] [place] [address], [place] [phone] Partial thromboplastin time (05/22/2015 12:55 PM PIZZA DELIVERY DRIVER) P athologist Signature PTT 29 22 - 37 sec [facility] Specimen Anatomical Collection Method Collection Time Receive d Time (Source) Location / / Volume Laterality Blood specimen 05/22/2015 12:55 5 1:13 (specimen) PM PIZZA DELIVERY DRIVER PM PIZZA DELIVERY DRIVER Brandon García MD LAB - BLOOD ORDERABLES Performing Organization Address City/State/ZIP Code Phon e Number [facility] [address] [place] [address] [phone] [facility] [address] [place] [address], [place] [phone] (ABNORMAL) INR (05/22/2015 12:55 PM PIZZA DELIVERY DRIVER) athologist Signature INR 1.15 (H) 0.86 - 1.14 [facility] Specimen Anatomical Collection Method Collection Time Receive d Time (Source) Location / / Volume Laterality Blood specimen 05/22/2015 12:55 5 1:13 (specimen) PM PIZZA DELIVERY DRIVER PM PIZZA DELIVERY DRIVER Brandon García MD LAB - BLOOD ORDERABLES Performing Organization Address City/State/ZIP Code Phon e Number [facility] [address] [place] [address] [facility] [address] [place] [address], [place] [phone] Lactic acid (05/22/2015 12:53 PM PIZZA DELIVERY DRIVER) P athologist Signature Lactic Acid 0.8 0.4 - 2.0 [place] mmol/L [facility] Specimen Anatomical Collection Method Collection Time Receive d Time (Source) Location / / Volume Laterality Blood specimen 05/22/2015 12:53 5 1:15 (specimen) PM PIZZA DELIVERY DRIVER PM PIZZA DELIVERY DRIVER Brandon García MD LAB - BLOOD ORDERABLES Performing Organization Address City/State/ZIP Code Phon e Number [facility] [address] [phone] [facility] [address] [address], [place] [phone] XR Post Surgical Imaging (05/22/2015 12:40 PM PIZZA DELIVERY DRIVER) Anatomical Region Laterality Modality Computed Radiography Specimen (Source) Anatomical Location Collection Method / Collectio n Time Received Time / Laterality Volume Impressions 05/22/2015 1:47 PM PIZZA DELIVERY DRIVER IMPRESSION: The endotracheal tube terminates approximately 3 cm from the sergio. There is a right pulmonary a rtery catheter which terminates in the right main pulmonary a rtery. Lung volumes are low. Left chest tube in place. No pneumothora x. CELIO CONLEY MD Narrative 05/22/2015 1:47 PM PIZZA DELIVERY DRIVER XR POST SURGICAL IMAGING 05/22/2015 12:40 PM HISTORY: Endotracheal tube positioning. COMPARISON: None. Procedure Note Celio Conley MD - 05/22/2015 XR POST SURGICAL IMAGING 05/22/2015 12:4 0 PM HISTORY: Endotracheal tube positioning. COMPARISON: None. IMPRESSION IMPRESSION: The endotracheal tube termin ates approximately 3 cm from the sergio. There is a right pulmonary a rtery catheter which terminates in the right main pulmonary a rtery. Lung volumes are low. Left chest tube in place. No pneumothora x. CELIO CONLEY MD Brandon García MD IMG DIAGNOSTIC IMAGING ORDER NIRU (ABNORMAL) Glucose by meter (05/22/2015 12:20 PM PIZZA DELIVERY DRIVER) P athologist Signature Glucose 125 (H) 70 - 99 POINT OF CARE mg/dL TEST, GLUCOSE Specimen Anatomical Collection Method Collection Time Receive d Time (Source) Location / / Volume Laterality 05/22/2015 12:20 05/22/2015 PM PIZZA DELIVERY DRIVER 12:25 PM PIZZA DELIVERY DRIVER Chapo WHARTON - BEAKER POCT Performing Organization Address City/State/ZIP Code Phon e Number FV POINT OF CARE TEST, GLUCOSE POINT OF CARE TEST, GLUCOSE EKG 12-lead, tracing only (05/22/2015 12:19 PM PIZZA DELIVERY DRIVER) [facility] gist Method Time Signature Interpretation ECG Click View RADIOLOGY Image link RESULTS to view waveform and result Specimen (Source) Anatomical Collection Method Collection Time Re ceived Time Location / / Volume Laterality 05/22/2015 12:19 PM PIZZA DELIVERY DRIVER Brandon García MD ECG ORDERABLES Performing Organization Address City/State/ZIP Code Phon e Number RADIOLOGY RESULTS Partial thromboplastin time (05/22/2015 11:15 AM PIZZA DELIVERY DRIVER) athologist Signature PTT 32 22 - 37 sec [facility] Specimen Anatomical Collection Method Collection Time Receive d Time (Source) Location / / Volume Laterality 05/22/2015 11:15 05/22/2015 AM PIZZA DELIVERY DRIVER 11:24 AM PIZZA DELIVERY DRIVER Chapo Celis MD LAB - BLOOD ORDERABLES Performing Organization Address City/[facility]/ZIP Code Phon e Number [facility] [address] [place] [address] [phone] [facility] [address] [place] [address], [place] [phone] (ABNORMAL) INR (05/22/2015 11:15 AM PIZZA DELIVERY DRIVER) athologist Signature INR 1.23 (H) 0.86 - 1.14 [facility] Specimen Anatomical Collection Method Collection Time Receive d Time (Source) Location / / Volume Laterality 05/22/2015 11:15 05/22/2015 AM PIZZA DELIVERY DRIVER 11:24 AM PIZZA DELIVERY DRIVER Chapo Celis MD LAB - BLOOD ORDERABLES Performing Organization Address City/[facility]/ZIP Code Phon e Number [facility] [address] [place] [phone] [facility] [address] [place] [address], [place] [phone] Activated clotting time POCT (05/22/2015 11:15 AM PIZZA DELIVERY DRIVER) P athologist Signature Activated Clot 111 105 - 167 POINT OF CARE Time sec TEST, HANDHELD METER Specimen Anatomical Collection Method Collection Time Receive d Time (Source) Location / / Volume Laterality 05/22/2015 11:15 05/22/2015 AM PIZZA DELIVERY DRIVER 11:27 AM PIZZA DELIVERY DRIVER Chapo Celis MD LAB - ENTER/EDIT POCT Performing Organization Address City/State/ZIP Code Phon e Number FV POINT OF CARE TEST, HANDHELD METER POINT OF CARE TEST, HANDHELD METER Fibrinogen activity (05/22/2015 11:15 AM PIZZA DELIVERY DRIVER) P athologist Signature Fibrinogen 316 200 - 420 [place] mg/dL [facility] Specimen Anatomical Collection Method Collection Time Receive d Time (Source) Location / / Volume Laterality 05/22/2015 11:15 05/22/2015 AM PIZZA DELIVERY DRIVER 11:24 AM PIZZA DELIVERY DRIVER Chapo Celis MD LAB - BLOOD ORDERABLES Performing Organization Address City/[facility]/ZIP Code Phon e Number [facility] [address] [address] [facility] [address] [address], [facility] [phone] (ABNORMAL) CBC with platelets differential (05/22/2015 11:15 AM PIZZA DELIVERY DRIVER) Patholo gist Method Time Signature WBC 2.1 (L) 4.0 - [place] 11.0 [facility] 10e9/L [facility] RBC Count 4.14 (L) 4.4 - 5.9 [place] 10e12/L [facility] Hemoglobin 13.6 13.3 - [place] 17.7 g/dL [facility] Hematocrit 36.5 (L) 40.0 - [place] 53.0 % [facility] MCV 88 78 - 100 [facility] MCH 32.9 26.5 - [place] 33.0 pg [facility] MCHC 37.3 (H) 31.5 - [place] 36.5 g/dL [facility] RDW 12.7 10.0 - [place] 15.0 % [facility] Platelet Count 106 (L) 150 - 450 [place] 10e9/L [facility] Diff Method Automated [facility] % Neutrophils 53.6 % [facility] % Lymphocytes 44.9 % [facility] % Monocytes 0.5 % [facility] % Eosinophils 0.5 % [facility] % Basophils 0.0 % [facility] % Immature 0.5 % [place] Granulocytes [facility] Absolute 1.1 (L) 1.6 - 8.3 [place] Neutrophil 10e9/L [facility] Absolute 0.9 0.8 - 5.3 [place] Lymphocytes 10e9/L [facility] Absolute 0.0 0.0 - 1.3 [place] Monocytes 10e9/L [facility] Absolute 0.0 0.0 - 0.7 [place] Eosinophils 10e9/L [facility] Absolute 0.0 0.0 - 0.2 [place] Basophils 10e9/L [facility] Abs Immature 0.0 0 - 0.4 [place] Granulocytes 10e9L [facility] Specimen Anatomical Collection Method Collection Time Receive d Time (Source) Location / / Volume Laterality 05/22/2015 11:15 05/22/2015 AM PIZZA DELIVERY DRIVER 11:24 AM PIZZA DELIVERY DRIVER Chapo Celis MD LAB - BLOOD ORDERABLES Performing Organization Address City/State/ZIP Code Phon e Number [facility] [address] [phone] [facility] [address] [address], [facility] [phone] (ABNORMAL) Basic metabolic panel (05/22/2015 11:15 AM PIZZA DELIVERY DRIVER) athologist Signature Sodium 142 133 - 144 [place] mmol/L [facility] Potassium 3.8 3.4 - 5.3 [place] mmol/L [facility] Chloride 109 94 - 109 [place] mmol/L [facility] Carbon Dioxide 24 20 - 32 [place] mmol/L [facility] Anion Gap 9 3 - 14 [place] mmol/L [facility] Glucose 123 (H) 70 - 99 [place] mg/dL [facility] Urea Nitrogen 21 7 - 30 [place] mg/dL [facility] Creatinine 0.96 0.66 - [place] 1.25 mg/dL [facility] GFR Estimate 78 >60 [place] mL/min/1.[address] Comment: Non GFR Calc GFR Estimate If Black >90 >60 mL/min/1.7m2 F [facility] GFR Calc HOSP ITAL Calcium 7.8 (L) 8.5 - 10.1 mg/dL [facility] Specimen Anatomical Collection Method Collection Time Receive d Time (Source) Location / / Volume Laterality 05/22/2015 11:15 05/22/2015 AM PIZZA DELIVERY DRIVER 11:24 AM PIZZA DELIVERY DRIVER Chapo Celis MD LAB - BLOOD ORDERABLES Performing Organization Address City/State/ZIP Code Phon e Number [facility] [address] [place] [address] [phone] [facility] [address] [place] [address], [place] [phone] (ABNORMAL) ISTAT gases elec art POCT (05/22/2015 10:42 AM PIZZA DELIVERY DRIVER) athologist Signature pH Arterial 7.38 7.35 - POINT OF CARE 7.45 pH TEST, HANDHELD METER pCO2 Arterial 46 (H) 35 - 45 mm POINT OF CARE Hg TEST, HANDHELD METER pO2 Arterial 101 80 - 105 POINT OF CARE mm Hg TEST, HANDHELD METER Bicarbonate 27 21 - 28 POINT OF CARE Arterial mmol/L TEST, HANDHELD METER O2 Sat Arterial 98 92 - 100 % POINT OF CARE TEST, HANDHELD METER Sodium 139 133 - 144 POINT OF CARE mmol/L TEST, HANDHELD METER Potassium 3.7 3.4 - 5.3 POINT OF CARE mmol/L TEST, HANDHELD METER Hemoglobin 13.6 13.3 - POINT OF CARE 17.7 g/dL TEST, HANDHELD METER Hematocrit - 40 40.0 - POINT OF CARE POCT 53.0 %PCV TEST, HANDHELD METER Specimen Anatomical Collection Method Collection Time Receive d Time (Source) Location / / Volume Laterality 05/22/2015 10:42 05/23/2015 7:16 AM PIZZA DELIVERY DRIVER AM PIZZA DELIVERY DRIVER Chapo Celis MD LAB - BEAKER POCT Performing Organization Address City/State/ZIP Code Phon e Number FV POINT OF CARE TEST, HANDHELD METER POINT OF CARE TEST, HANDHELD METER (ABNORMAL) Activated clotting time POCT (05/22/2015 10:38 AM PIZZA DELIVERY DRIVER) athologist Signature Activated Clot 352 (H) 105 - 167 POINT OF CARE Time sec TEST, HANDHELD METER Specimen Anatomical Collection Method Collection Time Receive d Time (Source) Location / / Volume Laterality 05/22/2015 10:38 05/22/2015 AM PIZZA DELIVERY DRIVER 11:27 AM PIZZA DELIVERY DRIVER Chapo Celis MD LAB - ENTER/EDIT POCT Performing Organization Address City/State/ZIP Code Phon e Number FV POINT OF CARE TEST, HANDHELD METER POINT OF CARE TEST, HANDHELD METER (ABNORMAL) Activated clotting time POCT (05/22/2015 10:12 AM PIZZA DELIVERY DRIVER) athologist Signature Activated Clot 328 (H) 105 - 167 POINT OF CARE Time sec TEST, HANDHELD METER Specimen Anatomical Collection Method Collection Time Receive d Time (Source) Location / / Volume Laterality 05/22/2015 10:12 05/22/2015 AM PIZZA DELIVERY DRIVER 11:27 AM PIZZA DELIVERY DRIVER Chapo Celis MD LAB - ENTER/EDIT POCT Performing Organization Address City/State/ZIP Code Phon e Number F[facility] POINT OF CARE TEST, HANDHELD METER POINT OF CARE TEST, HANDHELD METER (ABNORMAL) ISTAT gases elec art POCT (05/22/2015 10:01 AM PIZZA DELIVERY DRIVER) [facility] Method Time Signature pH Arterial 7.41 7.35 - POINT OF CARE 7.45 pH TEST, HANDHELD METER pCO2 Arterial 42 35 - 45 mm POINT OF CARE Hg TEST, HANDHELD METER pO2 Arterial 98 80 - 105 POINT OF CARE mm Hg TEST, HANDHELD METER Bicarbonate 27 21 - 28 POINT OF CARE Arterial mmol/L TEST, HANDHELD METER O2 Sat Arterial 98 92 - 100 % POINT OF CARE TEST, HANDHELD METER Sodium 137 133 - 144 POINT OF CARE mmol/L TEST, HANDHELD METER Potassium 3.7 3.4 - 5.3 POINT OF CARE mmol/L TEST, HANDHELD METER Hemoglobin 12.2 (L) 13.3 - POINT OF CARE 17.7 g/dL TEST, HANDHELD METER Hematocrit - 36 (L) 40.0 - POINT OF CARE POCT 53.0 %PCV TEST, HANDHELD METER Specimen Anatomical Collection Method Collection Time Receive d Time (Source) Location / / Volume Laterality 05/22/2015 10:01 05/22/2015 AM PIZZA DELIVERY DRIVER 11:27 AM PIZZA DELIVERY DRIVER Chapo WHARTON - BEAKER POCT Performing Organization Address City/State/ZIP Code Phon e Number [facility] POINT OF CARE TEST, HANDHELD METER POINT OF CARE TEST, HANDHELD METER (ABNORMAL) Activated clotting time POCT (05/22/2015 9:59 AM PIZZA DELIVERY DRIVER) P athologist Signature Activated Clot 280 (H) 105 - 167 POINT OF CARE Time sec TEST, HANDHELD METER Specimen Anatomical Collection Method Collection Time Receive d Time (Source) Location / / Volume Laterality 05/22/2015 9:59 AM 5 7:16 PIZZA DELIVERY DRIVER AM PIZZA DELIVERY DRIVER Chapo Celis MD LAB - ENTER/EDIT POCT Performing Organization Address City/State/ZIP Code Phon e Number FV POINT OF CARE TEST, HANDHELD METER POINT OF CARE TEST, HANDHELD METER (ABNORMAL) ISTAT gases elec art POCT (05/22/2015 8:52 AM PIZZA DELIVERY DRIVER) Patholo gist Method Time Signature pH Arterial 7.36 7.35 - POINT OF CARE 7.45 pH TEST, HANDHELD METER pCO2 Arterial 45 35 - 45 mm POINT OF CARE Hg TEST, HANDHELD METER pO2 Arterial 109 (H) 80 - 105 POINT OF CARE mm Hg TEST, HANDHELD METER Bicarbonate 26 21 - 28 POINT OF CARE Arterial mmol/L TEST, HANDHELD METER O2 Sat Arterial 98 92 - 100 % POINT OF CARE TEST, HANDHELD METER Sodium 137 133 - 144 POINT OF CARE mmol/L TEST, HANDHELD METER Potassium 3.7 3.4 - 5.3 POINT OF CARE mmol/L TEST, HANDHELD METER Hemoglobin 12.6 (L) 13.3 - POINT OF CARE 17.7 g/dL TEST, HANDHELD METER Hematocrit - 37 (L) 40.0 - POINT OF CARE POCT 53.0 %PCV TEST, HANDHELD METER Specimen Anatomical Collection Method Collection Time Receive d Time (Source) Location / / Volume Laterality 05/22/2015 8:52 AM 5 7:16 PIZZA DELIVERY DRIVER AM PIZZA DELIVERY DRIVER Chapo WHARTON - BETELLO POCT Performing Organization Address City/State/ZIP Code Phon e Number FV POINT OF CARE TEST, HANDHELD METER POINT OF CARE TEST, HANDHELD METER (ABNORMAL) ISTAT gases elec art POCT (05/22/2015 8:07 AM PIZZA DELIVERY DRIVER) [facility] gist Method Time Signature pH Arterial 7.39 7.35 - POINT OF CARE 7.45 pH TEST, HANDHELD METER pCO2 Arterial 52 (H) 35 - 45 mm POINT OF CARE Hg TEST, HANDHELD METER pO2 Arterial 455 (H) 80 - 105 POINT OF CARE mm Hg TEST, HANDHELD METER Bicarbonate 31 (H) 21 - 28 POINT OF CARE Arterial mmol/L TEST, HANDHELD METER O2 Sat Arterial 100 92 - 100 % POINT OF CARE TEST, HANDHELD METER Sodium 139 133 - 144 POINT OF CARE mmol/L TEST, HANDHELD METER Potassium 3.5 3.4 - 5.3 POINT OF CARE mmol/L TEST, HANDHELD METER Hemoglobin 12.6 (L) 13.3 - POINT OF CARE 17.7 g/dL TEST, HANDHELD METER Hematocrit - 37 (L) 40.0 - POINT OF CARE POCT 53.0 %PCV TEST, HANDHELD METER Specimen Anatomical Collection Method Collection Time Receive d Time (Source) Location / / Volume Laterality 05/22/2015 8:07 AM 5 PIZZA DELIVERY DRIVER 11:27 AM PIZZA DELIVERY DRIVER Chapo Celis MD LAB - BEAKER POCT Performing Organization Address City/State/ZIP Code Phon e Number FV POINT OF CARE TEST, HANDHELD METER POINT OF CARE TEST, HANDHELD METER Activated clotting time POCT (05/22/2015 8:06 AM PIZZA DELIVERY DRIVER) P athologist Signature Activated Clot 123 105 - 167 POINT OF CARE Time sec TEST, HANDHELD METER Specimen Anatomical Collection Method Collection Time Receive d Time (Source) Location / / Volume Laterality 05/22/2015 8:06 AM 5 PIZZA DELIVERY DRIVER 11:15 AM PIZZA DELIVERY DRIVER Chapo Celis MD LAB - ENTER/EDIT POCT Performing Organization Address City/State/ZIP Code Phon e Number FV POINT OF CARE TEST, HANDHELD METER POINT OF CARE TEST, HANDHELD METER Blood component (05/22/2015 5:48 AM PIZZA DELIVERY DRIVER) [facility] Method Time Signature Unit Number [id number] [facility] Blood Red Blood [place] Component Cells [facility] No longer [place] Unit available [facility] 05/23/2015 HOSPITAL 0534 Specimen Anatomical Collection Method Collection Time Receive d Time (Source) Location / / Volume Laterality 05/22/2015 5:48 AM 5 5:59 PIZZA DELIVERY DRIVER AM PIZZA DELIVERY DRIVER Shaun West MD LABORATORY Performing Organization Address City/State/ZIP Code Phon e Number M [facility] [address] [place] [address] [facility] [address] [place] [address], [place] [phone] Blood component (05/22/2015 5:48 AM PIZZA DELIVERY DRIVER) [facility] Method Time Signature Unit Number [id number] [facility] Blood Red Blood [place] Component Cells [facility] Leukocyte HOSPITAL Reduced Division 00 [facility] Status of No longer [place] Unit available [facility] 05/23/2015 [facility] 0534 Specimen Anatomical Collection Method Collection Time Receive d Time (Source) Location / / Volume Laterality 05/22/2015 5:48 AM 5 5:59 PIZZA DELIVERY DRIVER AM PIZZA DELIVERY DRIVER Shaun West MD LABORATORY Performing Organization Address City/State/ZIP Code Phon e Number [facility] [address] [place] [address] [facility] [address] [place] [address], [place] [phone] Blood component (05/22/2015 5:48 AM PIZZA DELIVERY DRIVER) [facility] Method Time Signature Unit Number [id number] [facility] Blood Red Blood Cells [place] Component LeukoReduced [facility] HOSPITAL Division 00 [facility] Status of No longer [place] Unit available [facility] 05/23/2015 0534 [facility] Specimen Anatomical Collection Method Collection Time Receive d Time (Source) Location / / Volume Laterality 05/22/2015 5:48 AM 5 5:59 PIZZA DELIVERY DRIVER AM PIZZA DELIVERY DRIVER Shaun West MD LABORATORY Performing Organization Address City/State/ZIP Code Phon e Number M [facility] [address] [place] [address] [facility] [address] [place] [address], [place] [phone] Blood component (05/22/2015 5:48 AM PIZZA DELIVERY DRIVER) [facility] gist Method Time Signature Unit Number [id number] [facility] Blood Red Blood [place] Component Cells [facility] Leukocyte HOSPITAL Reduced Division 00 [facility] Status of No longer [place] Unit available [facility] 05/23/2015 HOSPITAL 0534 Specimen Anatomical Collection Method Collection Time Receive d Time (Source) Location / / Volume Laterality 05/22/2015 5:48 AM 5 5:59 PIZZA DELIVERY DRIVER AM PIZZA DELIVERY DRIVER Shaun West MD LABORATORY Performing Organization Address City/State/ZIP Code Phon e Number [facility] [address] [place] [address] [facility] [address] [place] [address], [place] [phone] ABO/Rh type and screen (05/22/2015 5:48 AM PIZZA DELIVERY DRIVER) [facility] gist Method Time Signature Units Ordered 4 [facility] ABO B [facility] RH(D) Pos [facility] Antibody Neg [place] Screen [facility] Test Valid [facility] Only At [facility] HOSPITAL Specimen 05/25/2015 [facility] Specimen Anatomical Collection Method Collection Time Receive d Time (Source) Location / / Volume Laterality Blood specimen 05/22/2015 5:48 AM 015 5:59 (specimen) PIZZA DELIVERY DRIVER AM PIZZA DELIVERY DRIVER Shaun West MD LAB - BLOOD BANK TEST ORDER Performing Organization Address City/State/ZIP Code Phon e Number M [facility] [address] [place] [address] [facility] [address] [place] [place], [place] [address], U [phone] documented in this encounter Visit Diagnoses Diagnosis S/P CABG (coronary artery bypass graft) - Primary Postsurgical aortocoronary bypass status S/P CABG (coronary artery bypass graft) Postsurgical aortocoronary bypass status Coronary artery disease Coronary atherosclerosis of unspecified type of vessel, [place] or graft documented in this encounter Administered Medications Inactive Administered Medications - up to 3 most recent administrations Medication Order MAR Action Action Date Dose Rate Site acetaminophen (TYLENOL) Given 05/22/2015 1:29 PM PIZZA DELIVERY DRIVER 650 mg suppository 650 mg 650 mg, Rectal, EVERY 6 HOURS, First dose on Wed05/22/15 at 1230, Use rectal suppository if patient unable to take PO. Maximum acetaminophen dose from all sources = 75 mg/kg/day not to exceed 4 grams/day. acetaminophen (TYLENOL) tablet 650 mg Given 05/24/2015 6:29 AM PIZZA DELIVERY DRIVER 650 mg 650 mg, Oral, EVERY 6 HOURS, First dose on Wed05/22/15 at 1230, Use when patient is able to take PO. Maximum acetaminophen dose from all sources = 75 mg/kg/day not to exceed 4 grams/day. Given 05/24/2015 12:01 AM PIZZA DELIVERY DRIVER 650 mg Given 05/23/2015 5:33 PM PIZZA DELIVERY DRIVER 650 mg aspirin chewable tablet 81 mg Given 05/25/2015 7:49 AM PIZZA DELIVERY DRIVER 81 mg 81 mg, Oral or NG Tube, DAILY, First dose on Lety 05/23/15 at 0900, For all CAB patients NOT ON warfarin (COUMADIN) and Chest tube output less than 300 mL/8 hours Given 05/24/2015 8:30 AM PIZZA DELIVERY DRIVER 81 mg Given 05/23/2015 8:02 AM PIZZA DELIVERY DRIVER 81 mg atorvastatin (LIPITOR) tablet 40 mg Given 05/24/2015 7:50 PM PIZZA DELIVERY DRIVER 40 mg 40 mg, Oral, DAILY AT 8PM, First dose on Wed05/24/15 at 2000 Benzocaine-Menthol (CHLORASEPTIC) 6-10 MG Given 2014 3:54 AM PIZZA DELIVERY DRIVER 2 lozenges lozenge 1-2 lozenge 1-2 lozenge, Buccal, EVERY 1 HOUR PRN, sore throat, dry/sore throat without fever, Starting on 05/25/15 at 0352 bisacodyl (DULCOLAX) suppository 10 mg Given 05/25/2015 7:50 AM PIZZA DELIVERY DRIVER 10 mg 10 mg, Rectal, ONCE, On Wed05/24/15 at 1700, For 1 dose, If no BM. ceFAZolin (ANCEF) 1 g vial to attach to NS New Bag 05/23/2015 11:3 6 AM PIZZA DELIVERY DRIVER 1 g 100 ml bag for ADULT or 50 ml bag for PE DS Routine, 1 g, Intravenous, EVERY 8 HOURS, First dose on Wed05/22/15 at 1930, For 3 doses, First dose 8 hours after last dose during surgery. Stop within 48 hours of surgery end time., Indications: Perioperative Pharmacoprophylaxis, Post-procedure New Bag 05/23/2015 5:26 AM PIZZA DELIVERY DRIVER 1 g New Bag 05/22/2015 7:37 PM PIZZA DELIVERY DRIVER 1 g cyclobenzaprine (FLEXERIL) tablet 10 mg Given 05/23/2015 2:33 PM PIZZA DELIVERY DRIVER 10 mg 10 mg, Oral, 3 TIMES DAILY PRN, muscle spasms, Starting on Lety 05/23/15 at 0907 dexmedetomidine Rate/Dose Change 05/22/2015 4:04 0.3 mcg/kg/hr 5.6 mL /hr (PRECEDEX) 400 mcg in PM PIZZA DELIVERY DRIVER NaCl 0.9 % 100 mL infusion 0.2-1.2 mcg/kg/hr ? 74.9 kg (3.745-22.47 mL/hr, rounded to 3.7-22.5 mL/hr), Intravenous, CONTINUOUS, Starting on Wed05/22/15 at 1315, For sedation. Start at lowest dose ordered. Titrate by 0.1 mcg/kg/hr every 5 minutes to achieve the defined goal sedation score., Post-procedure, Population for use? Adult Sedation, Goal Miranda Agitation Sedation Scale (RASS) Score Goal Range: -1 Drowsy to -2 Light Sedation Rate/Dose Verify 05/22/2015 4:00 PM PIZZA DELIVERY DRIVER 0.5 mcg/kg/hr 9.4 mL/hr Rate/Dose Verify 05/22/2015 3:19 PM PIZZA DELIVERY DRIVER 0.5 mcg/kg/hr 9.4 mL/hr dexmedetomidine Rate/Dose Verify 05/22/2015 1:00 PM 0.7 mcg/kg/hr 13. 1 mL/hr (PRECEDEX)PP 200mcg in PIZZA DELIVERY DRIVER 0.9% sodium chloride 50mL 0.2-1.2 mcg/kg/hr ? 74.9 kg (3.745-22.47 mL/hr, rounded to 3.7-22.5 mL/hr), Intravenous, CONTINUOUS, Starting on Wed05/22/15 at 1230, For sedation. Start at lowest dose ordered. Titrate by 0.1 mcg/kg/hr every 5 minutes to achieve the defined goal sedation score., Post-procedure, Population for use? Adult Sedation, Goal Miranda Agitation Sedation Scale (RASS) Score Goal Range: -1 Drowsy to -2 Light Sedation Rate/Dose Verify 05/22/2015 12:10 PM PIZZA DELIVERY DRIVER 0.7 mcg/kg/hr 13.1 mL/hr dextrose 5% and 0.45% NaCl + KCl 20 New Bag 05/23/2015 11:38 AM CS T 50 mL/hr mEq/L infusion at 50 mL/hr, Intravenous, CONTINUOUS, Discontinue IV fluids when PO well tolerated., Post-procedure, Starting on Wed05/22/15 at 1230, Until Lety 05/23/15 at 1543 Rate/Dose Verify 05/23/2015 8:00 AM PIZZA DELIVERY DRIVER 50 mL/hr Rate/Dose Verify 05/22/2015 7:00 PM PIZZA DELIVERY DRIVER 50 mL/hr fentaNYL (SUBLIMAZE) injection 50-100 mc g Given 05/22/2015 6:37 AM PIZZA DELIVERY DRIVER 50 mcg 50-100 mcg, Intravenous, PRE-OP/PRE-PROCEDURE, Starting on Wed05/22/15 at 0612, For 4 doses, Give in pre-op, Pre-procedure Given 05/22/2015 6:35 AM PIZZA DELIVERY DRIVER 50 mcg furosemide (LASIX) injection 20 mg Given 05/22/2015 4:38 PM PIZZA DELIVERY DRIVER 20 mg 20 mg, Intravenous, ONCE, On Wed05/22/15 at 1630, For 1 dose furosemide (LASIX) injection 20 mg Given 05/25/2015 7:50 AM PIZZA DELIVERY DRIVER 20 mg 20 mg, Intravenous, 2 TIMES DAILY (Diuretics and Nitrates), First dose on Wed05/24/15 at 0800 Given 05/24/2015 3:55 PM PIZZA DELIVERY DRIVER 20 mg Given 05/24/2015 8:31 AM PIZZA DELIVERY DRIVER 20 mg furosemide (LASIX) injection 20 mg Given 05/23/2015 9:53 AM PIZZA DELIVERY DRIVER 20 mg 20 mg, Intravenous, ONCE, On Lety 05/23/15 at 0915, For 1 dose hydrALAZINE (APRESOLINE) injection 10 mg Given 05/22/2015 1:50 PM PIZZA DELIVERY DRIVER 10 mg 10 mg, Intravenous, EVERY 30 MIN PRN, high blood pressure, Systolic Blood Pressure greater than 160 or Diastolic Blood Pressure greater than 90., Administer over 1-2 Minutes, Starting on Wed05/22/15 at 1215 Given 05/22/2015 1:18 PM PIZZA DELIVERY DRIVER 10 mg HYDROmorphone (PF) (DILAUDID) 0.5 MG/0.5 ML injection Starting on Wed05/22/15 at 1245, For 1 dose, Maryanne Verde: cabinet override HYDROmorphone (PF) (DILAUDID) injection Given 05/23/2015 3:18 PM PIZZA DELIVERY DRIVER 0.5 mg 0.3-0.5 mg 0.3-0.5 mg, Intravenous, EVERY 2 HOURS PRN, moderate to severe pain, Starting on Wed05/22/15 at 1215 Given 05/23/2015 11:40 AM PIZZA DELIVERY DRIVER 0.3 mg Given 05/23/2015 7:58 AM PIZZA DELIVERY DRIVER 0.5 mg insulin 1 unit/mL in Rate/Dose Verify 05/23/2015 8:00 AM 0.5 Units/hr 0.5 mL/hr saline (novoLIN-Regular) PIZZA DELIVERY DRIVER drip - ADULT IV Infusion 0-24 Units/hr (0-24 mL/hr), Intravenous, CONTINUOUS, Starting on Wed05/22/15 at 1215, Initiate drip with Algorithm #1 (see hyperlink to protocol). Start protocol only if glucose > 150 mg/dL. Maintain glucose level between 100-150 mg/dL. DC when glycemic control achieved and transitioning to SQ insulin, or Insulin therapy no longer required. When blood glucose has stabilized and patient is tolerating PO intake, call provider for transition to SQ insulin. For Infusion Instructions, Click on ADULT DRIP PROTOCOL hyperlink below., Initial Set-up verified by: Andrea Verde RN Rate/Dose Change 05/23/2015 4:30 AM PIZZA DELIVERY DRIVER 0.5 Units/hr 0.5 mL/hr Rate/Dose Verify 05/22/2015 8:00 PM PIZZA DELIVERY DRIVER 1.5 Units/hr 1.5 mL/hr insulin Aspart (NovoLOG) inj (RAPID ACTI NG) Given 05/25/2015 7:56 AM PIZZA DELIVERY DRIVER 1 Units 1-7 Units, Subcutaneous, 3 TIMES DAILY BEFORE MEALS, First dose on Lety 05/23/15 at 1700, Correction Scale - MEDIUM INSULIN RESISTANCE DOSING Do Not give Correction Insulin if Pre-Meal BG < 140. For Pre-Meal BG 140 - 189 give 1 unit. For Pre-Meal BG 190 - 239 give 2 units. For Pre-Meal BG 240 - 289 give 3 units. For Pre-Meal BG 290 - 339 give 4 units. For Pre-Meal BG 340- 399 give 5 units. For Pre-Meal BG 400-449 give 6 units For Pre-Meal BG = or > 450 give 7 units. To be given with prandial insulin, and based on pre-meal blood glucose. Notify MD if glucose > or = 350 mg/dL after administration of correction dose. If given at mealtime, must be administered 5 min before meal or immediately after. Given 05/24/2015 5:31 PM PIZZA DELIVERY DRIVER 1 Units lactated ringers infusion New Bag 05/22/2015 6:25 AM PIZZA DELIVERY DRIVER 25 mL/hr at 25 mL/hr, Intravenous, CONTINUOUS, IF patient NOT on dialysis., Pre-procedure, Starting on Wed05/22/15 at 0545, Until Wed05/22/15 at 1209 lidocaine (LIDODERM) 5 % Given 05/24/2015 7:50 PM PIZZA DELIVERY DRIVER 1 patch Other (see comments) patch 1 patch 1 patch, Transdermal, EVERY 24 HOURS 1999, First dose on Wed05/22/15 at 1800, Apply patch(s) to affected area. To prevent lidocaine toxicity, patient should be patch free for 12 hrs daily. Patches may be cut to smaller size prior to removing release liner. NEVER APPLY HEAT OVER PATCH which will increase absorption and may lead to risk of local anesthetic toxicity. Do not apply over area where liposomal bupivacaine was injected for 96 hours post injection. Given 05/22/2015 5:47 PM PIZZA DELIVERY DRIVER 1 patch Opera tive Site/Surgical Site lidocaine BUFFERED 1 % solution Given by Other 05/22/2015 6:25 AM PIZZA DELIVERY DRIVER 0.5 mLs 0.1-1 mL 0.1-1 mL, Intradermal, ONCE PRN, mild pain with VAD insertion or accessing implanted port., Starting on Wed05/22/15 at 0530, For 1 dose, Do NOT give if patient has a history of allergy to any local anesthetic or any stan product., Pre-procedure magnesium sulfate 1 g in D5W intermittent New Bag 05/25/2015 9:51 AM PIZZA DELIVERY DRIVER 1 g infusion 1 g, Intravenous, Administer over 30 Minutes, DAILY PRN, magnesium supplementation, For Serum Mg++ 2.0-2.3 mg/dL, Starting on Wed05/22/15 at 1215, Recheck Magnesium Level next AM (and every Mon, Wed, Fri if ordered). Repeat dose if necessary. Infuse over 30 minutes. New Bag 05/24/2015 7:50 PM PIZZA DELIVERY DRIVER 1 g New Bag 05/23/2015 6:44 AM PIZZA DELIVERY DRIVER 1 g metoprolol (LOPRESSOR) injection 5 mg Given 05/22/2015 6:05 PM PIZZA DELIVERY DRIVER 5 mg 5 mg, Intravenous, EVERY 6 HOURS, First dose on Wed05/22/15 at 1745, For Adults, Hold if HR < 60, or SBP < 100 metoprolol (LOPRESSOR) tablet 25 mg Given 05/25/2015 7:49 AM PIZZA DELIVERY DRIVER 25 mg 25 mg, Oral, 2 TIMES DAILY, First dose on Lety 05/23/15 at 1215, For Adults, Hold if HR less than 60 bpm. Given 05/24/2015 8:39 PM PIZZA DELIVERY DRIVER 25 mg Given 05/24/2015 8:30 AM PIZZA DELIVERY DRIVER 25 mg midazolam (VERSED) injection 1-2 mg Given 05/22/2015 6:48 AM PIZZA DELIVERY DRIVER 1 mg 1-2 mg, Intravenous, PRE-OP/PRE-PROCEDURE, Starting on Wed05/22/15 at 0612, For 4 doses, In Pre Op for anxiety/sedation. IF patient receives midazolam (VERSED) place patient on continuous pulse oximetry PRE OP., Pre-procedure Given 05/22/2015 6:35 AM PIZZA DELIVERY DRIVER 2 mg mupirocin (BACTROBAN) 2 % ointment Given 05/22/2015 5:56 AM PIZZA DELIVERY DRIVER Both Nostrils, 2 TIMES DAILY, First dose on Wed05/22/15 at 0800, For 2 doses, Continue through morning of surgery including one dose the morning of surgery., Pre-procedure niCARdipine 40 mg in 200 Rate/Dose Change 05/22/2015 3:15 PM 2.5 mg /hr 12.5 mL/hr mL 0.9% NaCl (CARDENE) PIZZA DELIVERY DRIVER infusion 2.5-15 mg/hr (12.5-75 mL/hr), Intravenous, CONTINUOUS, Starting on Wed05/22/15 at 1400, Max dose= 15mg/hr (notify MD if dose exceeds 15mg/hr and SBP not within range).Titrate by 2.5 mg/hr q5-15min to keep SBP<140mmHg. To minimize risk of peripheral venous irritation, it is recommended that the site of infusion be changed every 12 hours., Initial Set-up verified by: Isaiah Rate/Dose Verify 05/22/2015 3:00 PM PIZZA DELIVERY DRIVER 5 mg/hr 25 mL/hr Rate/Dose Change 05/22/2015 2:52 PM PIZZA DELIVERY DRIVER 5 mg/hr 25 mL/hr nitroGLYCERIN 50 mg in Rate/Dose Change 05/22/2015 3:09 0.05 mcg/kg /min 1.1 mL/hr D5W 250 mL (adult std) PM PIZZA DELIVERY DRIVER infusion 0.07-1 mcg/kg/min ? 74.9 kg (1.5729-22.47 mL/hr, rounded to 1.6-22.5 mL/hr), Intravenous, CONTINUOUS, Starting on Wed05/22/15 at 1230, Start at the lowest dose ordered. Titrate by 0.1 mcg/kg/min every 5 minutes. Titrate by 0.1 mcg/kg/min every 5 minutes to keep SBP less than 130 mmHg. MAX dose: 1 mcg/kg/min., Post-procedure, Initial Set-up verified by: JAGDEEP Colon Rate/Dose Verify 05/22/2015 3:00 PM PIZZA DELIVERY DRIVER 0.08 mcg/kg/min 1.8 mL/hr Rate/Dose Change 05/22/2015 2:59 PM PIZZA DELIVERY DRIVER 0.08 mcg/kg/min 1.8 mL/hr oxyCODONE (ROXICODONE) immediate release tablet Given 05/25/2015 9:56 AM PIZZA DELIVERY DRIVER 5 mg 5-10 mg 5-10 mg, Oral, EVERY 3 HOURS PRN, other, moderate pain, Starting on Wed05/22/15 at 1215 Given 05/25/2015 6:10 AM PIZZA DELIVERY DRIVER 5 mg Given 05/25/2015 1:34 AM PIZZA DELIVERY DRIVER 5 mg pantoprazole (PROTONIX) 40 mg IV push Given 05/24/2015 8:[address] 40 mg injection 40 mg, Intravenous, DAILY, Administer over 2 Minutes, First dose on Wed05/22/15 at 1230, Reconstitute vial with 10mLs Saline and administer IV Push Given 05/23/2015 8:04 AM PIZZA DELIVERY DRIVER 40 mg Given 05/22/2015 1:28 PM PIZZA DELIVERY DRIVER 40 mg pantoprazole (PROTONIX) EC tablet 40 mg Given 05/25/2015 7:49 AM PIZZA DELIVERY DRIVER 40 mg 40 mg, Oral, EVERY MORNING, First dose on Wed05/25/15 at 0900, DO NOT CRUSH. Route changed per P&T protocol polyethylene glycol (MIRALAX/GLYCOLAX) packet Given 05/25/20 7:51 AM PIZZA DELIVERY DRIVER 17 g 17 g 17 g, Oral, DAILY, First dose on Wed05/22/15 at 1230, Give in 8 oz of water, juice, or soda. Hold for loose stools. This is the second step of a three step constipation treatment protocol. Given 05/24/2015 8:31 AM PIZZA DELIVERY DRIVER 17 g Given 05/23/2015 8:02 AM PIZZA DELIVERY DRIVER 17 g potassium chloride (KLOR-CON) packet 20-40 Given 05/23/2015 6:43 AM PIZZA DELIVERY DRIVER 20 mEq mEq 20-40 mEq, Oral or Feeding Tube, EVERY 2 HOURS PRN, potassium supplementation, Starting on Wed05/22/15 at 1215, Use if unable to tolerate tablets. Recheck K+ level 2 hours after replacement dose if given for K+ less than 3.4, next AM (and QMWF if ordered). Repeat dose if necessary. If Serum K+ 3.4-4.0, dose = 20 mEq x1. If Serum K+ 3.0-3.3, dose = 60 mEq po total dose (40 mEq x1 followed in 2 hours by 20 mEq x1). If Serum K+ 2.5-2.9, dose = 80 mEq po total dose (40 mEq Q2H x2). If Serum K+ less than 2.5, See IV order. Dissolve packet contents in 4-8 ounces of cold water or juice. potassium chloride 20 mEq in 50 mL New Bag 05/22/2015 1:56 PM PIZZA DELIVERY DRIVER 20 mEq 50 mL/hr intermittent infusion 20 mEq, Intravenous, Administer over 1 Hours, at 50 mL/hr, EVERY 1 HOUR PRN, potassium supplementation, Starting on Wed05/22/15 at 1215, Infuse via CENTRAL LINE only. May need EKG if weight less than 65 kg or on TPN - check mEq/kg/hr max rate. Recheck K+ level 2 hours after replacement dose if given for K+ less than 3.4, next AM (and QMWF if ordered). Repeat dose if necessary. If Serum K+ 3.4-4.0, dose = 20 mEq/hr x1 doses. If Serum K+ 3.0-3.3, dose = 20 mEq/hr x2 doses (40 mEq IV total dose). If Serum K+ 2.5-2.9, dose = 20 mEq/hr x3 doses (60 mEq IV total dose). If Serum K+ less than 2.5, dose = 20 mEq/hr x3 doses (60 mEq IV total dose). potassium chloride SA (K-DUR,KLOR-CON M) CR Given 05/25/2015 9:47 AM PIZZA DELIVERY DRIVER 20 mEq tablet 20-40 mEq 20-40 mEq, Oral, EVERY 2 HOURS PRN, potassium supplementation, Starting on Wed05/22/15 at 1215, Use if able to take PO. Recheck K+ level 2 hours after replacement dose if given for K+ less than 3.4, next AM (and QMWF if ordered). Repeat dose if necessary. If Serum K+ 3.4-4.0, dose = 20 mEq x1. If Serum K+ 3.0-3.3, dose = 60 mEq po total dose (40 mEq x1 followed in 2 hours by 20 mEq x1). If Serum K+ 2.5-2.9, dose = 80 mEq po total dose (40 mEq Q2H x2). If Serum K+ less than 2.5, See IV order. Do not Crush. ranitidine (ZANTAC) tablet 150 mg Given 05/22/2015 5:52 AM PIZZA DELIVERY DRIVER 150 mg 150 mg, Oral, ONCE, On Wed05/22/15 at 0545, For 1 dose, Give the dose the day of open heart surgery., Pre-procedure senna-docusate (SENOKOT-S;PERICOLACE) Given 05/25/2015 7:[address] 2 tablets 8.6-50 MG per tablet 1-2 tablet 1-2 tablet, Oral, 2 TIMES DAILY, First dose on Wed05/22/15 at 1230, If no bowel movement in 24 hours, increase to 2 tablets PO BID. Hold for loose stools. This is the first step of a three step constipation treatment protocol. Given 05/24/2015 8:38 PM PIZZA DELIVERY DRIVER 2 tablets Given 05/24/2015 8:30 AM PIZZA DELIVERY DRIVER 2 tablets sodium chloride (PF) 0.9% PF flush 3 mL Given 05/25/2015 7:50 AM PIZZA DELIVERY DRIVER 3 mLs 3 mL, Intravenous, EVERY 8 HOURS, First dose on Wed05/22/15 at 1230, to lock peripheral IV dormant line. Also Ordered Q1H PRN Given 05/25/2015 4:30 AM PIZZA DELIVERY DRIVER 3 mLs Given 05/24/2015 8:39 PM PIZZA DELIVERY DRIVER 3 mLs documented in this encounter Active and Recently Administered Medications Times are shown in PIZZA DELIVERY DRIVER. Scheduled Medication Order 05/23/2015 05/24/2015 05/25/2015 acetaminophen (TYLENOL) tablet 650 mg (CANCELED) 0643 (Given - Provider: Rosa Washburn RN)1135 (Given - Provider: Maryanne Verde, JAGDEEP)1733 (Given - Provider: Sandra Oneal RN) 0001 (Given - Provider: Katty Davenport, JAGDEEP )0629 (Given - Provider: Katty Davenport RN) 650 mg, Oral, EVERY 6 HOURS, First dose on Wed05/22/15 at 1230, Use when patient is able to take PO. Maximum acetaminophen dose from all sources = 75 mg/kg/day not to exceed 4 grams/day. aspirin chewable tablet 81 mg (CANCELED) 0802 (Given - Provider: Maryanne Verde RN) 0830 (Given - Provider: Roro Hall RN) 0749 (Giv en - Provider: Roro Hall RN)0900 (Canceled Entry - Provider: Roro Hall RN) 81 mg, Oral or NG Tube, DAILY, First dos e on Lety 05/23/15 at 0900, For all CAB patients NOT ON warfarin (COUMADIN) and Chest tube output less than 300 mL/8 hours atorvastatin (LIPITOR) tablet 40 mg (CANCELED) 1949 (Given - Provider: Marya Tinoco RN) 40 mg, Oral, DAILY AT 8PM, First dose on Wed05/24/15 at 2000 bisacodyl (DULCOLAX) suppository 10 mg (COMPLETED) 0750 (Given - Provider: Roro Hall RN)0904 (Canceled Entry - Provider: Roro Hall RN - Comment: pt wants to wait until tomorrow before taking suppository) 10 mg, Rectal, ONCE, Wed05/24/15 at 1700, For 1 dose, If no BM. ceFAZolin (ANCEF) 1 g vial to attach to NS 100 ml bag for ADULT or 50 ml bag for PEDS (COMPLETED) 0526 (New Bag - Provider: Rosa melton RN)1136 (New Bag - Provider: Maryanne Verde, JAGDEEP) 1 g, Intravenous, EVERY 8 HOURS, First d ose on Wed05/22/15 at 1930, For 3 doses, First dose 8 hours after last dose during surgery. Stop within 48 hours of surgery end time., Indications: Surgical Prophylaxis, Post-procedure furosemide (LASIX) injection 20 mg (CANCELED) 0831 (Given - Provider: Roro Hall RN)1555 (Given - Provider: Roro Hall RN) 0750 (Given - Provider: Roro Hall RN) 20 mg, Intravenous, 2 TIMES DAILY., First dose on Wed05/24/15 a t 0800 furosemide (LASIX) injection 20 mg (COMPLETED) 0953 (G iven - Provider: Maryanne Verde, JAGDEEP) 20 mg, Intravenous, ONCE, Wed05/23/15 at 0915, For 1 dose insulin Aspart (NovoLOG) inj (RAPID ACTING) (CANCELED) 1822 (Not Given - Provider: Sandra Oneal RN - Reason: Other - Comment: patient declines as not eating dinner) 0833 (Not Given - Provider: Roro whalen RN - Reason: Order parameters not met - Comment: bg 121)1250 (Not Given - Provider: Roro Hall RN - Reason: Order parameters not met - Comment: bg 92) 0756 (Given - Provider: Roro Hall RN - Comment: bg 149) 1-7 Units, Subcutaneous, 3 TIMES DAILY B EFORE MEALS, First dose on Wed05/23/15 at 1700, Correction Scale - MEDIUM INSULIN RESISTANCE DOSING Do Not give Correction Insulin if Pre-Meal BG < 140. For P 1731 (G iven - Provider: Roro Hall RN - Comment: bg 177) re-Meal BG 140 - 189 give 1 unit. For Pr e-Meal BG 190 - 239 give 2 units. For Pre-Meal BG 240 - 289 give 3 units. For Pre-Meal BG 290 - 339 give 4 units. For Pre-Meal BG 340- 399 give 5 units. For Pre-M eal BG 400-449 give 6 units For Pre-Meal BG = or > 450 give 7 units. To be given with prandial insulin, and based on pre-meal blood glucose. Notify MD if glucose > or = 350 mg/dL after administrat ion of correction dose. If given at meal time, must be administered 5 min before meal or immediately after. lidocaine (LIDODERM) 5 % patch 1 patch (CANCELED) 2101 (Not Given - Provider: Katty Davenport RN - Reason: Patient/family refused) 1950 (Given - Provider: Marya Tinoco RN) 1 patch, Transdermal, EVERY 24 HOURS 200 0, First dose on Wed05/22/15 at 1800, Apply patch(s) to affected area. To prevent lidocaine toxicity, patient should be patch free for 12 hrs daily. Patches may be cut to smaller size prior to removing release liner. NEVER APPLY HEAT OVER PATCH which will increase absorption and may lead to risk of local anesthetic toxicity. Do not apply over area where liposom al bupivacaine was injected for 96 hours post injection. metoprolol (LOPRESSOR) tablet 25 mg 1433 (Given - Prov ider: Maryanne Verde RN)2102 (Given - Provider: Katty Davenport RN) 0830 (Given - Provider: Roro Hall RN)2038 (Given - Provider: Marya Tinoco RN) 0749 (Given - Provider: Roro Hall RN)0900 (Canceled Entry - Provider: Roro Hall RN) 25 mg, Oral, 2 TIMES DAILY, First dose o n Lety 05/23/15 at 1215, For Adults, Hold if HR less than 60 bpm. pantoprazole (PROTONIX) 40 mg IV push injection (CANCE LED) 08 (Given - Provider: Maryanne Verde RN) 0831 (Given - Provider: Roro Hall RN) 40 mg, Intravenous, DAILY, for 2 Minutes , First dose on Wed05/22/15 at 1230, Reconstitute vial with 10mLs Saline and administer IV Push pantoprazole (PROTONIX) EC tablet 40 mg 0749 (Given - Provider: Roro Hall RN)0900 (Canceled Entry - Provider: Roro Hall RN) 40 mg, Oral, EVERY MORNING, First dose o n 05/25/15 at 0900, DO NOT CRUSH. Route changed per P&T protocol polyethylene glycol (MIRALAX/GLYCOLAX) packet 17 g (CA NCELED) 0802 (Given - Provider: Maryanne Verde RN) 0831 (Given - Provider: Roro Hall RN) 0751 (Given - Provider: Roro Hall RN)0900 (Canceled Entry - Provider: Roro Hall RN) 17 g, Oral, DAILY, First dose on 05/26 at 1230, Give in 8 oz of water, juice, or soda. Hold for loose stools. This is the second step of a three step constipation treatment protocol. senna-docusate (SENOKOT-S;PERICOLACE) 8.6-50 MG per ta blet 1-2 tablet 0802 (Given - Provider: Maryanne Verde RN)2102 (Given - Provider: Katty Davenport RN) 0830 (Given - Provider: Roro Hall RN)203 (Given - Provider: Marya Tinoco RN) 0749 (Given - Provider: Roro Hall RN)0900 (Canceled Entry - Provider: Roro Hall RN) 1-2 tablet, Oral, 2 TIMES DAILY, First d ose on Wed05/22/15 at 1230, If no bowel movement in 24 hours, increase to 2 tablets PO BID. Hold for loose stools. This is the first step of a three step constipation treatment protocol. sodium chloride (PF) 0.9% PF flush 3 mL (CANCELED) 043 1 (Given - Provider: Rosa Washburn RN)1150 (Not Given - Provider: Maryanne Verde RN - Reason: IV Infusing)2103 (Given - Provider: Katty Davenport RN) 0427 (Given - Provider: Katty Davenport RN)1556 (Given - Provider: Roro Hall, JAGDEEP)203 (Given - Provider: Marya Tinoco, RN)2110 (Canceled Entry - Provider: Marya Tinoco RN) 0430 (Given - Provider: Marya Tinoco RN)0600 (Canceled Entry - Provider: Marya Tinoco RN)0750 (Given - Provider: Roro Hall, JAGDEEP) 3 mL, Intravenous, EVERY 8 HOURS, First dose on Wed05/22/15 at 1230, to lock peripheral IV dormant line. Also Ordered Q1H PRN Continuous Medication Order 05/23/2015 05/24/2015 05/25/2015 dextrose 5% and 0.45% NaCl + KCl 20 mEq/L infusion (CA NCELED) 0800 (Rate/Dose Verify - Provider: Maryanne Verde RN)1138 (New Bag - Provider: Maryanne Verde, JAGDEEP)1600 (Stopped - Provider: Maryanne Verde RN) at 50 mL/hr, Intravenous, CONTINUOUS, Di scontinue IV fluids when PO well tolerated., Post-procedure, Starting Wed05/22/15 at 1230, Until Lety 05/23/15 at 1543 insulin 1 unit/mL in saline (novoLIN-Reg ular) drip - ADULT IV Infusion (CANCELED) 0430 (Rate/Dose Change - Provider: Rosa Washburn RN)0800 (Rate/Dose Verify - Provider: Maryanne Verde, JAGDEEP)1530 (Stopped - Provider: Maryanne Verde RN) 0-24 Units/hr (0-24 mL/hr), Intravenous, at 0-24 mL/hr, CONTINUOUS, Starting Wed05/22/15 at 1215, Initiate drip with Algorithm #1 (see hyperlink to protocol). Start protocol only if glucose > 150 mg /dL. Maintain glucose level between 100- 150 mg/dL. DC when glycemic control achieved and transitioning to SQ insulin, or Insulin therapy no longer required. When blood glucose has stabilized and patient is tolerating PO intake, call provider for transition to SQ insulin. For Infusion Instructions, Click on ADULT DRIP PROTOCOL hyperlink below., Initial Set-up verified by: Andrea Vrede RN PRN Medication Order 05/23/2015 05/24/2015 05/25/2015 acetaminophen (TYLENOL) tablet 650 mg 650 mg, Oral, EVERY 6 HOURS PRN, mild pa in, fever, Starting 05/24/15 at 1030, Use when patient is able to take PO. Maximum acetaminophen dose from all sources = 75 mg/kg/day not to exceed 4 grams/day. Benzocaine-Menthol (CHLORASEPTIC) 6-10 MG lozenge 1-2 lozenge (C ANCELED) 0354 (Given - Provider: Marya Tinoco RN)0431 (Canceled Entry - Provider: Marya Tinoco RN) 1-2 lozenge, Buccal, EVERY 1 HOUR PRN, s ore throat, dry/sore throat without fever, Starting 05/25/15 at 0352 cyclobenzaprine (FLEXERIL) tablet 10 mg (CANCELED) 143 3 (Given - Provider: Maryanne Verde RN) 10 mg, Oral, 3 TIMES DAILY PRN, muscle spasms, Starting Lety 05/12 08/26 at 0907 HYDROmorphone (PF) (DILAUDID) injection 0.3-0.5 mg (CA NCELED) 0008 (Given - Provider: Rosa Washburn RN)0758 (Given - Provider: Maryanne Verde RN)1140 (Given - Provider: Maryanne Verde, JAGDEEP)1518 (Given - Provider: Maryanne Verde, JAGDEEP) 0.3-0.5 mg, Intravenous, EVERY 2 HOURS P RN, Starting 05/22/15 at 1215, Until 05/25/15 at 1341, moderate to severe pain magnesium sulfate 1 g in D5W intermittent infusion (CA NCELED) 0644 (New Bag - Provider: Rosa Washburn RN) 1950 (New Bag - Provider: Marya Tinoco RN) 0951 (New Bag - Provider: Roro Hall RN - Comment: mag 2.2) 1 g, Intravenous, for 30 Minutes, DAILY PRN, Starting Wed05/22/15 at 1215, magnesium supplementation, For Serum Mg++ 2.0-2.3 mg/dL, Recheck Magnesium Level next AM (and every Mon, Wed, Fri if ordered). Repeat dose if necessary. Infuse over 30 minutes. oxyCODONE (ROXICODONE) immediate release tablet 5-10 m g 0210 (Given - Provider: Rosa Washburn RN)0523 (Given - Provider: Rosa Washburn RN)1135 (Given - Provider: Maryanne Verde, JAGDEEP)1433 (Given - Provider: Maryanne Verde RN)1733 (Given - Provider: Sandra Oneal RN) 0001 (Given - Provider: Katty Davenoprt RN)0427 (Given - Provider: Katty Davenport RN)0844 (Given - Provider: Roro Hall RN)1249 (Given - Provider: Roro Hall RN)1733 (Given - Provider: Roro Hall RN) 0134 (Given - Provider: Marya Tinoco RN)0610 (Given - Provider: Marya Tinoco RN)0956 (Given - Provider: Roro Hall RN) 5-10 mg, Oral, EVERY 3 HOURS PRN, other, moderate pain, Starting Wed05/22/15 at 1215 2103 (Given - Provider: Katty Davenport RN) 2039 (Given - Provider: Marya Tinoco RN) potassium chloride (KLOR-CON) packet 20-40 mEq (CANCEL ED) 0643 (Given - Provider: Rosa Washburn RN) 20-40 mEq, Oral or Feeding Tube, EVERY 2 HOURS PRN, Starting Wed05/22/15 at 1215, potassium supplementation, Use if unable to tolerate tablets. Recheck K+ level 2 hours after replacement dose if given for K+ less than 3.4, next AM (and QMWF if ordered). Repeat dose if necessary. If Serum K+ 3.4-4.0, dose = 20 mEq x1. If Serum K+ 3.0-3.3, dose = 60 mEq po total dose (40 mEq x1 followed in 2 hours by 2 0 mEq x1). If Serum K+ 2.5-2.9, dose = 8 0 mEq po total dose (40 mEq Q2H x2). If Serum K+ less than 2.5, See IV order. Dissolve packet contents in 4-8 ounces of cold water or juice. potassium chloride SA (K-DUR,KLOR-CON M) CR tablet 20-40 mEq (CA NCELED) 1978 (Given - Provider: Roro Hall RN - Comment: k 3.8) 20-40 mEq, Oral, EVERY 2 HOURS PRN, Star ting 05/22/15 at 1215, potassium supplementation, Use if able to take PO. Recheck K+ level 2 hours after replacement dose if given for K+ less than 3.4, next AM (and QMWF if ordered). Repeat dose if necessary. If Serum K+ 3.4-4.0, dose = 20 mEq x1. If Serum K+ 3.0-3.3, dose = 60 mEq po total dose (40 mEq x1 followed in 2 hours by 20 mEq x1). If Serum K+ 2.5- 2.9, dose = 80 mEq po total dose (40 mEq Q2H x2). If Serum K+ less than 2.5, See IV order. Do not Crush. documented in this encounter Care Teams Salesperson [employer] Relationship Specialty Start Date End Date Alfred Rios MD PCP - General Family Practice 04/18/15 Alfred Rios MD PCP - Assigned PCP 03/22/15 09/13/18 [id number] CARL LAWLER [id number] Alfred Rios MD Assigned PCP 03/22/15 06/01/20 [id number] CARL LAWLER [id number] documented as of this encounter
--- OUTSIDE RECORDS SUMMARY | 2022-04-28 22:57 | XMS_ITS | Encounter Summary ---
:1950 Author Organization [place] Address [facility] [place] [address] Care Team Providers Name Role Phone Alfred Rios MD Primary Care Provider [phone] Alfred Rios MD Unavailable Alfred Rios MD Unavailable Reason for Visit Rehab Therapy Cardiac Therapy (Routine) - Closed Specialty Diagnoses / Procedures Referred By Contact Refer red To Contact CARDIAC REHAB Diagnoses MEdciare//S/P CABG (coronary artery bypass graft) [facility] Procedures EVALUATION [address] [place] [address] [address] [place] [address] Phone: Fax: Referral ID Status Reason Start Date Expiration Date Visits V isits Requested Authorized [facility] - CR Closed 05/30/2015 07/11/2016 365 365 ([id number]) Encounter Details Date Type Department Care Team Description 06/11/2015 Hospital Encounter [facility] Cardiac Str Cynthia joiner PA and Pulmonary 1, Rh Cardiac Rehab Rehabilitation [facility] [id number] [place] [address] [address] [place] [address] Social History Tobacco Use [...] - Inhaled Oxygen Concentration - - Weight 74.1 kg (163 lb 6.4 oz) 06/11/2015 2:00 PM SLATE ROOFER Height 167.6 cm (5' 5.98) 06/11/2015 2:00 PM SLATE ROOFER Body Mass Index 26.39 06/11/2015 2:00 PM SLATE ROOFER documented in this encounter Medications at Time [...] encounter Progress Notes Brody Sethi MD - 06/11/2015 2:43 PM CST OUTPATIENT CARDIAC REHAB INDIVIDUALIZED TREATMENT PLAN 30 Day Individualized Treatment Plan Certified through this date: 07/19/15 Name: Anthony Chun Date of : 1950 Date of Treatment: 05/22/15 Age: [age] year old Gender: male Treatment Diagnosis: Coronary Artery Bypass Surgery (x1--DiVinci Method Internal Mammary to LAD) Secondary Treatment Diagnosis: Hospital Location: [facility] Discharge Date: 05/25/15 Outpatient CR Start Date: 05/30/15 Primary Physician: Dr. Buckley Surgeon: Dr. Celis (appt June 10) Process Description Writer: Dr. Flowers (Sees in july) Ejection Fraction: [...] exercise capacity , education and behavior change counseling. Patient and Program Goals Sessions Attended: 4 MET Goal: 5-7 Current MET Level: 4.2 Goal Attend cardiac rehab 3 times per [...] is working on a home improvement project. Goal Attend nutrition classes to learn about a heart healthy diet and to establish 1-2 dietary changes that patient can make to eat more heart healthy Target Date 08/30/15 Date Met Progress Towards Goal 06/11/15. Plans to attend nutrition class tomorrow. He is interested in attending others education classes as well. No current diet changes were discussed today. Referrals Recommended Referrals recommended: Comments: Pain Assessment Patient Currently in Pain: [...] DM or CKD Outcome Achieved Hypertension comments: Tobacco Tobacco: Former (Quit > 6 mo ago) Quit date or planned quit date: 10/22/99 Tobacco habit: Cigarettes Tobacco use per day: 1ppd Interventions planned: (no interventions needed) Interventions completed: Stages of change: Maintenance Target outcome goal: Complete Smoking Cessation: Outcome Achieved Tobacco comments: Stress / Psychosocial Reassessment Psycho-social Assessment: Initial Patient admits to stress: Yes (work stress) Current level of stress: Moderate Coping skills: deep breathing, talking with Patient Health Questionnaire-9 (PHQ-9) for Depression: 5-9 Minimal symptoms 10-14 Minor depression 15-19 Major depression, moderately severe > 20 Major depression, severe Completed PHQ-9 Score: 7 [facility] Function and Health Status Survey: A [...] stress to personal health Psychosocial Interventions completed: Target outcome goal: Assessment for depression using PhQ-9 and [facility]. Maximize coping skills and develop [...] healthiest action for juan luis to take. Nutrition Reassessment Dietary assessment: Initial Assessment Rate Your Plate - Heart Survey: Scores range from 24 to 72. The higher the score the healthier the eating choices. Overweight / Obesity: Yes Age: 65 Weight: 74.118 kg (163 lb 6.4 oz) Height: 167.6 cm (5' 5.98) BMI (Calculated): 26.44 Goal weight: 72.576 kg (160 lb) Prescribed diet: NA Follows prescribed diet: (NA) Stages of change to prescribed diet: NA Nutrition interventions planned: Attend Diet Classes Nutrition interventions completed: Target outcome goal: BMI < 25: Outcome Not Achieved Comments: Cholesterol Cholesterol: Labs Available Date: 04/16/15 Total Cholesterol: 200 HDL: 61 LDL: 124 Triglycerides: 74 Target outcome goal: Total cholesterol <150, HDL >40 M >50 F, LDL < 70, Trig < 150: Outcome Not Achieved Comments: Diabetes Management Diabetes Management: NA Hb A1C: Pre-Exercise Blood Sugar: Target outcome goal: Hb A1C < 7: Comments: Inactivity / Aerobic Exercise Reassessment Activity Assessment: Initial Inactivity: Meets Physical Activity Goal Physical Activity [...] Monitored sessions scheduled: 24 Monitored sessions Attended: 4 Exercise Reassessment Met Level Achieved: 4.2 Resting HR: 68 bpm Exercise HR: 111 bpm Post Exercise HR: 71 bpm Resting BP: 120/64 mmHg Exercise BP: 142/64 mmHg Post Exercise BP: 92/60 mmHg Pre SpO2: While Exercising SpO2: Post SpO2: Pre BG (if applicable): Post BG (if applicable): RPE: 5 ECG Rhythm: Sinus rhythm Ectopy: [...] with exercise: No Resistance Training: Yes Comments: Current Home Exercise Type of Exercise: Walking Frequency (days per week): 1 Duration (minutes per session): 20 Recommended Home Exercise Prescription Type of Exercise: Walking Frequency (days per week): 2-3 Duration (minutes per session): 30-45 min RPE recommended: (4-6 OMNI scale of exertion) Recommended THR: Comments/Exercise plan: He has increased his physical activity Patient Education Education Recommended: Anatomy and Physiology of the Heart, Blood Pressure, Exercise Principles, Medication Overview, Nutrition, Stress Management Education Attended: Physician cosignature/electronic signature indicates approval of this ITP document. I have established, reviewed and made necessary changes to the individualized treatment plan and exercise prescription for this patient. E ROOFER documented in this encounter Plan of Treatment Not on filedocumented as of this encounter Visit Diagnoses Not on filedocumented in this encounter Care Teams Jewel Hole Finish Opener Relationship Specialty Start Date End Date Alfred Rios MD PCP - General Family Practice 04/18/15 Alfred Rios MD PCP - Assigned PCP 03/22/15 09/13/18 [id number] CARL LAWLER [phone] Alfred Rios MD Assigned PCP 03/22/15 06/01/20 [id number] CARL LAWLER [id number] documented as of this encounter
--- OUTSIDE RECORDS SUMMARY | 2022-04-28 22:57 | XMS_ITS | Encounter Summary ---
:1950 Author Organization [place] Address [facility] [place] [address] Care Team Providers Name Role Phone Alfred Rios MD Primary Care Provider [phone] Alfred Rios MD Unavailable Alfred Rios MD Unavailable Reason for Visit Reason Onset Date Comments Hospital F/U 05/27/2015 In patient discharge from [facility] on 05/25/15 for S/P CABG 0/1 ER/IP Encounter Details Date Type Department Care Team Description 05/27[facility]In Clinic Yvonne Peterson MD patient discharge from [address] [place] [address], [address] [place] [address] on 05/25/15 for [address] [place] [address] S/P CABG 0/1 ER/IP) [place] [phone] (Wo rk) [phone] Social History Tobacco Use Types Packs/Day Years [...] Telephone Encounter - Regina Burrows RN - 05/28/2015 3:05 PM CST Hospital/TCU/ED for chronic condition Discharge Protocol Hi, my name is Regina Burrows, a registered nurse, and I am calling from [facility] I am calling to follow up and see how things are going for you after your recent emergency visit/hospital/TCU stay. Tell me how you are doing now that you are home? Doing well. Discharge Instructions Let's review your discharge instructions. What is/are the follow-up recommendations? Pt. Response: f/u with PCP if no improvement or worsening. Has an appointment with your primary care provider been scheduled? No, not yet. He has to rely on his for tansportation right now and she usually works until after 4:00pm. He states that they have a f/u appt with the lsw 06/10. If anything changes between now and then he will contact us. When you see the provider, I would recommend that you bring your medications with you. Medications Tell me what changed about your medicines when you discharged? Changes to chronic meds? 0-1 What questions do you have about your medications? None New diagnoses of heart failure, COPD, diabetes, or WI? No Medication reconciliation completed? Yes Was MTM referral placed (*Make sure to put transitions as reason for referral)? No Call Summary What questions or concerns do you have about your recent visit and your follow- up care? none If you have questions or things don't continue to improve, we encourage you contact us through the main clinic number (give number). Even if the clinic is not open, triage nurses are available 01/02 tohelp you. We would like you to know that our clinic has extended hours (provide information). We also have urgent care (provide details on closest location and hours/contact info) Thank you for your time and take care! Regina Burrows RN NING STRATEGIST Telephone Encounter - Deepa Sarabia - 05/27/2015 11:14 AM LEARNING STRATEGIST Please call In patient discharge from [facility] on 05/25/15 for S/P CABG 0/1 ER/IP NING STRATEGIST documented in this encounter Plan of Treatment Not on filedocumented as of this encounter Visit Diagnoses Not on filedocumented in this encounter Care Teams Exchange Mechanic Relationship Specialty Start Date End Date Alfred Rios MD PCP - General Family Practice 04/18/15 Alfred Rios MD PCP - Assigned PCP 03/22/15 09/13/18 [id number] CARL LAWLER [id number] Alfred Rios MD Assigned PCP 03/22/15 06/01/20 [id number] CARL LAWLER [id number] documented as of this encounter
--- OUTSIDE RECORDS SUMMARY | 2022-04-28 22:57 | XMS_ITS | Encounter Summary ---
:1950 Author Organization [facility] Address [address] [place] [address] Care Team Providers Name Role Phone Alfred Rios MD Primary Care Provider [phone] Alfred Rios MD Unavailable Alfred Rios MD Unavailable Reason for Visit Rehab Therapy Cardiac Therapy (Routine) - Closed Specialty Diagnoses / Procedures Referred By Contact Refer red To Contact CARDIAC REHAB Diagnoses MEdciare//S/P CABG (coronary artery bypass graft) [facility] Procedures EVALUATION [address] [place] [address] [address] [place] [address] Phone: Fax: Referral ID Status Reason Start Date Expiration Date Visits V isits Requested Authorized [facility] - CR Closed 05/30/2015 07/11/2016 365 365 ([id number]) Encounter Details Date Type Department Care Team Description 05/30/2015 Hospital Encounter [facility] Abimael Camacho PA S/P CABG (coronary Cardiac and Pulmonary 1, Rh Cardiac Rehab artery bypass Rehabilitation graft) (Prima ry Dx) [address] [place] [address] Social History Tobacco Use Types Packs/Day [...] - Inhaled Oxygen Concentration - - Weight 73.3 kg (161 lb 9.6 oz) 05/30/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 Height 167.6 cm (5' 5.98) 05/30/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 Body Mass Index 26.1 05/30/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 documented in this encounter Medications at Time [...] documented as of this encounter Progress Notes Madelin Fox, HODAN - 05/30/2015 12:44 PM CST OUTPATIENT CARDIAC REHAB INITIAL EVALUATION / INDIVIDUALIZED TREATMENT PLAN Certified through this date: 06/28/15 Name: Anthony Chun Date of : 1950 Date of Treatment: 05/22/15 Age: [age] year old Gender: male Treatment Diagnosis: Coronary Artery Bypass Surgery (x1--DiVinci Method Internal Mammary to LAD) Secondary Treatment Diagnosis: Hospital Location: [facility] Discharge Date: 05/25/15 Outpatient CR Start Date: 05/30/15 Primary Physician: Dr. Buckley Surgeon: Dr. Celis (appt June 10) Transfusion Nurse: Dr. Flowers (Sees in july) Ejection Fraction: 55-60% THR (85% of age predicted max HR): 131.75 Risk Stratification: Low I have established, reviewed and made necessary changes to the individualized treatment plan and exercise prescription for this patient. Physician Name (Printed): Date: Time: Physician Signature: X Assessment Assessment: The patient's history and clinical status including hemodynamics and ECG were evaluated.The patient was assessed to be stable and appropriate to begin exercise. The patient's functional capacity and exercise prescription were determined by the completion of the 6 minute walk test. See results below. The patient was oriented to the program and equipment. Risk factor profile was completed.Goals and objectives were discussed. CV response was WNL. No symptoms, complaints or pain were reported. Good prognosis for reaching above goals. Skilled therapy is necessary in order to monitor CV response to exercise, to provide education on risk factors and behavior change counseling needed to achie ve patient's goals. Plan to progress to 30-40 minutes of exercise prior to discharge from cardiac rehab. Initial THR of 20-30 beats above RHR; Effort rating of 4-6. Initiate muscle conditioning as appropriate. Provide risk factor education and behavior change counseling. Patient is doing extremely well since having CABGx1 surgery completed last week. Patient had procedure done with DiVinci machine and he is very happy with how quickly he has bounced back. 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 Incision is healing well but one of the tube locations is a little red. Patient states it has not gotten worse just isn't healing as quickly as the other spots. Patient will continue to watch this and will contact MD if it becomes concerning. Therapist talked about signs to watch for with incision. Patienthas not returned to work but is anxious to get back. Patient wants to increase his endurance in order have less SOB with activity. Patient and Program Goals MET Goal: 5-7 Current MET Level: 3.1 Goal Attend cardiac rehab 3 times per week in order to increase overall endurance so that patient has less SOB with activity and exercise Target Date 07/30/15 Date Met Progress Towards Goal Goal Attend nutrition classes to learn about a heart healthy diet and to establish 1-2 dietary changes that patient can make to eat more heart healthy Target Date 08/30/15 Date Met Progress Towards Goal Medical History Medical history: family history of heart disease, rotator cuff surgery (occasionally sore but no problems), achilles on left side repaired, both knees have had menisucus surgery Lead up symptoms: pain in middle of chest with beginning of exertion Onset of symptoms: 03/12/15 Signs and symptoms post hospitalization: SOB (with walking too fast or with stairs) Comments: Summary of Cath Report Left Main: 25-30% narrowing LAD: ostium: 80-90% Diagonal: LCx: 30% narrowing (or lesS) OM: OM1: 35-40% RCA: 40-50% narrowing PDA: Living Environment Living arrangement: house 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 No Have you fallen and had an injury in the past year? No Timed up and go score if applicable: Referral initiated to physical therapy: Comment: RISK FACTORS Hypertension Hypertension: Yes (diagnosed in [...] Outcome Achieved Tobacco comments: Stress / Psychosocial Assessment Psycho-social Assessment: Initial Patient admits to stress: Yes (work stress) Current level of stress: Moderate Coping skills: deep breathing, talking with Patient Health Questionnaire-9 (PHQ-9) for Depression: 5-9 Minimal symptoms 10-14 Minor depression 15-19 Major depression, moderately severe > 20 Major depression, severe Completed PHQ-9 Score: 7 [facility] Function and Health Status Survey: A [...] goal: Assessment for depression using PhQ-9 and [facility] questionnaires. Maximize coping skills and develop positive support system. Outcome Achieved Comments: Nutrition Assessment Dietary assessment: Initial Assessment Rate Your Plate - Heart Survey: Scores range from 24 to 72. The higher the score the healthier the eating choices. Overweight / Obesity: Yes Age: 65 Weight: 73.301 kg (161 lb 9.6 oz) Height: 167.6 cm (5' 5.98) BMI (Calculated): 26.15 Goal weight: 72.576 kg (160 lb) Prescribed [...] < 7: Comments: Inactivity / Aerobic Exercise Assessment Activity assessment: Initial Inactivity: Meets Physical Activity Goal Physical activity days per week: 4-5 Aerobic exercise days per week: 0 Aerobic exercise minutes per day: 0 Stages of change (Physical Activity): Maintenance Stages of change (Aerobic Activity): Preparation Target outcome goal: Aerobic Activity 30 minutes, 5 days per week = 150 minutes per week: Outcome Achieved Comments: INDIVIDUALIZED TREATMENT PLAN Monitored sessions scheduled: 24 Monitored sessions attended: 1 Exercise Assessment Initial 6 Minute Walk Distance: 1448 ft 6 Minute Walk Predicted (Male): 1653.6 6 Minute Walk Predicted (Female): 1563.65 Met Level Achieved: 3.1 Resting HR: 63 bpm Exercise HR: 100 bpm Post Exercise HR: 65 bpm Resting BP: 100/68 mmHg Exercise BP: 134/64 mmHg Post Exercise BP: 118/70 mmHg Pre SpO2: While Exercising SpO2: Post SpO2: Pre BG: Post BG: RPE: 4 ECG Rhythm: Sinus rhythm Ectopy: None Symptoms at home: Dyspnea Symptoms in rehab: Denies symptoms Limitations: does [...] Comments: Current Home Exercise Type of Exercise: None Frequency (days per week): 0 Duration (minutes per session): 0 Recommended Home Exercise Prescription Type of Exercise: Walking Frequency (days per week): 2-3 Duration (minutes per session): 30-45 min RPE recommended: (4-6 OMNI scale of exertion) Recommended THR: Comments/Exercise Plan: Learning Assessment Learner: Patient Primary Language: Brazilian Preferred Learning Style: Demonstration Barriers to Learning: No barriers noted Patient Education Education Recommended: Anatomy and Physiology of the Heart, Blood Pressure, Exercise Principles, Medication Overview, Nutrition, Stress Management 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 documented in this encounter Plan of Treatment Scheduled Referrals Name Type Priority Associated Diagnoses Order S chedule Cardiac Rehab Referral Referral Routine S/P CABG (coronary Ordered: 05/25/2015 artery bypass graft) documented as of this encounter Visit Diagnoses Diagnosis S/P CABG (coronary artery bypass graft) - Primary Postsurgical aortocoronary bypass status documented in this encounter Care Teams Night Filler Relationship Specialty Start Date End Date Alfred Rios MD PCP - General Family Practice 04/18/15 Alfred Rios MD PCP - Assigned PCP 03/22/15 09/13/18 [id number] CARL LAWLER [id number] Alfred Rios MD Assigned PCP 03/22/15 06/01/20 [id number] CARL LAWLER [id number] documented as of this encounter
--- OUTSIDE RECORDS SUMMARY | 2022-04-28 22:57 | XMS_ITS | Encounter Summary ---
:1950 Author Organization [facility] Address [address] [facility] [facility] [place] [address] Care Team Providers Name Role Phone Alfred Rios MD Primary Care Provider [phone] Alfred Rios MD Unavailable Alfred Rios MD Unavailable Encounter Details Date Type Department Care Team Description 05/28/2015 [facility] Only [facility] Murali Cadet Carotid stenosis, Vascular Clinic Jeremi Bernal MD bilateral (Primary Dx) [address] [place] [id number] [place] [id number] Social History Tobacco Use Types Packs/Day Years [...] of this encounter Results US Carotid Bilateral (05/19/2016 12:52 PM TERRITORY REPRESENTATIVE) Anatomical Region Laterality Modality Vascular, Head Ultrasound Specimen (Source) Anatomical Location Collection Method / Collectio n Time Received Time / Laterality Volume Impressions 05/19/2016 1:17 PM TERRITORY REPRESENTATIVE IMPRESSION: 1. 50-79% right internal carotid artery stenosis. Peak carotid velocities and the carotid ratio are les s than that demonstrated on the previous study. 2. Stable less than 15% left internal ca rotid artery stenosis. HERSON DAVIS MD Narrative 05/19/2016 1:17 PM TERRITORY REPRESENTATIVE ULTRASOUND CAROTID BILATERAL ??05/19/2016 12:52 PM HISTORY: Follow-up carotid stenosis. COMPARISON: 05/06/2015. FINDINGS: Duplex ultrasound with wavefor m spectral analysis and color flow imaging [...] stenosis. COMPARISON: 05/06/2015. FINDINGS: Duplex ultrasound with wavefor m spectral analysis and color flow imaging [...] 15% left internal ca rotid artery stenosis. EHRSON DAVIS MD Murali Cadet MD IMG US ORDERABLES documented in this encounter Visit Diagnoses Diagnosis Carotid stenosis, bilateral - Primary Occlusion and stenosis of multiple and b ilateral precerebral arteries without mention of cerebral infarction Carotid stenosis, bilateral Occlusion and stenosis of multiple and b ilateral precerebral arteries without mention of cerebral infarction documented in this encounter Care Teams Nursing Home Manager Relationship Specialty Start Date End Date Alfred Rios MD PCP - General Family Practice 04/18/15 Alfred Rios MD PCP - Assigned PCP 03/22/15 09/13/18 [id number] CARL LAWLER [id number] Alfred Rios MD Assigned PCP 03/22/15 06/01/20 [id number] CARL LAWLER [id number] documented as of this encounter
--- OUTSIDE RECORDS SUMMARY | 2022-04-28 22:57 | XMS_ITS | Encounter Summary ---
:1950 Author Organization [facility] Address [facility] [place] [address] Care Team Providers Name Role Phone Alfred iRos MD Primary Care Provider [phone] Alfred Rios MD Unavailable Alfred Rios MD Unavailable Reason for Visit Rehab Therapy Cardiac Therapy (Routine) - Closed Specialty Diagnoses / Procedures Referred By Contact Refer red To Contact CARDIAC REHAB Diagnoses MEdciare//S/P CABG (coronary artery bypass graft) [facility] Procedures EVALUATION [address] [place] [address] [address] [place] [address] Phone: Fax: Referral ID Status Reason Start Date Expiration Date Visits V isits Requested Authorized ON LICENSE OF [facility] - CR Closed 05/30/2015 07/11/2016 365 365 ([id number]) Encounter Details Date Type Department Care Team Description 06/12/2015 Hospital Encounter [facility] Cardiac Str Cynthia joiner PA and Pulmonary 1, Rh Cardiac Rehab Rehabilitation [facility] [id number] [place] [address] [address] [place] [address] Social History Tobacco Use [...] on filedocumented in this encounter Care Teams Palaeontologist Relationship Specialty Start Date End Date Alfred Rios MD PCP - General Family Practice 04/18/15 Alfred Rios MD PCP - Assigned PCP 03/22/15 09/13/18 [id number] CARL LAWLER [id number] Alfred Rios MD Assigned PCP 03/22/15 06/01/20 [id number] CARL LAWLER [id number] documented as of this encounter
--- OUTSIDE RECORDS SUMMARY | 2022-04-28 22:57 | XMS_ITS | Encounter Summary ---
:1950 Author Organization [place] Address [facility] [place] [address] Care Team Providers Name Role Phone Alfred Rios MD Primary Care Provider [phone] Alfred Rios MD Unavailable Alfred Rios MD Unavailable Reason for Visit Rehab Therapy Cardiac Therapy (Routine) - Closed Specialty Diagnoses / Procedures Referred By Contact Refer red To Contact CARDIAC REHAB Diagnoses MEdciare//S/P CABG (coronary artery bypass graft) [facility] Procedures EVALUATION [address] [place] [address] [address] [place] [address] Phone: Fax: Referral ID Status Reason Start Date Expiration Date Visits V isits Requested Authorized [facility] - CR Closed 05/30/2015 07/11/2016 365 365 ([id number]) Encounter Details Date Type Department Care Team Description 06/07/2015 Hospital Encounter [facility] Cardiac Str Cynthia joiner PA and Pulmonary 1, Rh Cardiac Rehab [facility] [id number] [place] [address] [address] [place] [address] Social History Tobacco Use [...] on filedocumented in this encounter Care Teams Sound Effects Manager Relationship Specialty Start Date End Date Alfred Rios MD PCP - General Family Practice 04/18/15 Alfred Rios MD PCP - Assigned PCP 03/22/15 09/13/18 [id number] CARL LAWLER [id number] Alfred Rios MD Assigned PCP 03/22/15 06/01/20 [id number] CARL LAWLER [id number] documented as of this encounter
--- OUTSIDE RECORDS SUMMARY | 2022-04-28 22:58 | XMS_ITS | Encounter Summary ---
:1950 Author Organization [place] Address [facility] [place] [address] Care Team Providers Name Role Phone Alfred Rios MD Primary Care Provider [phone] Alfred Rios MD Unavailable Alfred Rios MD Unavailable Encounter Details Date Type Department Care Team Description 05/03/2015 Orders Only [facility] Abbey Sandoval, Abnorm al cardiovascular Heart Clinic [place] RN stress test (Primary Dx) [id number] [place] [address] Social History Tobacco Use Types Packs/Day Years Used Date Smoking Tobacco: Former Cigarettes Quit : 10/22/1999 Smokeless Tobacco: Never Alcohol Use Standard Drinks/Week Comments Yes 0 (1 standard drink = 0.6 oz pure alcoho l) 1-2 beers daily Sex Assigned at Date Recorded Male 12/31/2020 1:31 PM CDT documented as of this encounter Plan of Treatment Not on filedocumented as of this encounter Visit Diagnoses Diagnosis Abnormal cardiovascular stress test - Pr imary Other nonspecific abnormal cardiovascula r system function study documented in this encounter Care Teams Hospice Clinical Manager Relationship Specialty Start Date End Date Alfred Rios MD PCP - General Family Practice 04/18/15 Alfred Rios MD PCP - Assigned PCP 03/22/15 09/13/18 23749 CARL LAWLER [id number] Alfred Rios MD Assigned PCP 03/22/15 06/01/20 16407 CARL LAWLER [id number] documented as of this encounter
--- OUTSIDE RECORDS SUMMARY | 2022-04-28 22:58 | XMS_ITS | Encounter Summary ---
:1950 Author Organization [place] Address [address] [place] [address] Care Team Providers Name Role Phone Alfred Riso MD Primary Care Provider [phone] Alfred Rios MD Unavailable Alfred Rios MD Unavailable Encounter Details Date Type Department Care Team Description 05/03/2015 [facility] Abno al cardiovascular Clinic [place] stress test [address] [facility] [address] [place] [address] Social History Tobacco Use Types [...] Name Priority Date/Time Associated Diagnosis Comme nts BASIC METABOLIC STAT 05/03/2015 11:08 Abnormal cardiovascul ar Results for this PANEL AM CDT stress test procedure are i n the results section. CBC WITH PLATELETS STAT 05/03/2015 11:08 Abnormal cardiovas cular Results for this AM CDT stress test procedure are i n the results section. documented in this encounter Results CBC with platelets (05/03/2015 11:08 AM CDT) athologist Signature WBC 5.7 4.0 - 11.0 [place] 10e9/L [facility] RBC Count 4.84 4.4 - 5.9 [place] 10e12/L [facility] Hemoglobin 15.6 13.3 - [place] 17.7 g/dL [facility] Hematocrit 43.1 40.0 - [place] 53.0 % [facility] MCV 89 78 - 100 [place] fl [facility] MCH 32.2 26.5 - [place] 33.0 pg [facility] MCHC 36.2 31.5 - [place] 36.5 g/dL [facility] RDW 12.9 10.0 - [place] 15.0 % [facility] Platelet Count 270 150 - 450 [place] [id number] [facility] Specimen Anatomical Collection Method Collection Time Receive d Time (Source) Location / / Volume Laterality Blood specimen 05/03/2015 11:08 5 (specimen) AM CDT 11:13 AM CDT Alton Flowers MD LAB - BLOOD ORDERABLES Performing Organization Address City/State/ZIP Code Phon e Number M [facility] [address] [address] [facility] [address] [phone] (ABNORMAL) Basic metabolic panel (05/03/2015 11:08 AM CDT) athologist Signature Sodium 135 133 - 144 [place] mmol/L [facility] Potassium 3.4 3.4 - 5.3 [place] mmol/L [facility] Chloride 102 94 - 109 [place] mmol/L [facility] Carbon Dioxide 26 20 - 32 [place] mmol/L [facility] Anion Gap 7 3 - 14 [place] mmol/L [facility] Glucose 102 (H) 70 - 99 [place] mg/dL [facility] Urea Nitrogen 19 7 - 30 [place] mg/dL [facility] Creatinine 1.00 0.66 - [place] 1.25 mg/dL [facility] GFR Estimate 75 >60 [place] mL/min/1.[address] Comment: Non GFR Calc GFR Estimate If Black >90 >60 mL/min/1.7m2 F [facility] GFR Calc HOSP ITAL Calcium 9.3 8.5 - 10.1 mg/dL [facility] Specimen Anatomical Collection Method Collection Time Receive d Time (Source) Location / / Volume Laterality Blood specimen 05/03/2015 11:08 5 (specimen) AM CDT 11:13 AM CDT Alton Flowers MD LAB - BLOOD ORDERABLES Performing Organization Address City/State/ZIP Code Phon e Number [facility] [address] [place], [place] [address] [address] [address] [place], [place] [address] [facility] [phone] documented in this encounter Visit Diagnoses Diagnosis Abnormal cardiovascular stress test Other nonspecific abnormal cardiovascula r system function study documented in this encounter Care Teams Area Field Worker Relationship Specialty Start Date End Date Alfred Rios MD PCP - General Family Practice 04/18/15 Alfred Rios MD PCP - Assigned PCP 03/22/15 09/13/18 [id number] CARL LAWLER [id number] Alfred Rios MD Assigned PCP 03/22/15 06/01/20 10277 CARL LAWLER [id number] documented as of this encounter
--- OUTSIDE RECORDS SUMMARY | 2022-04-28 22:58 | XMS_ITS | Encounter Summary ---
:1950 Author Organization [place] Address [address] [facility] 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 (H) Alfred Rios [facility] [address] [facility] [address] [place] [address] [place] [address] Phone: [phone] Fax: Referral ID Status Reason Start Date Expiration Date Visits Requ ested Visits Authorized [id number] Closed 04/24/2015 04/23/2016 1 1 Reason for Visit Reason Comments Back Pain Encounter Details Date Type Department Care Team Description 04/24/2015 Office Visit [facility] Alfred Rios Lumbar ra diculopathy (Primary Dx); Clinic Yvonne Peterson MD Cardiac ischemia; [place] [address] 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 (H) Road, [address] [place] [id number] Social History Tobacco Use Types Packs/Day [...] Sign Reading Time Taken Comments Blood Pressure 120/64 04/24/2015 2:01 PM CDT Pulse 96 04/24/2015 2:01 PM CDT Temperature 36.6 ??C (97.9 ??F) 04/24/2015 2:01 PM CDT Respiratory Rate - - Oxygen Saturation 97% 04/24/2015 2:01 PM CDT Inhaled Oxygen Concentration - - Weight 75.3 kg (166 lb) 04/24/2015 2:01 PM CDT Height 168.3 cm (5' 6.25) 04/24/2015 2:01 PM CDT Body Mass Index 26.59 04/24/2015 2:01 PM CDT documented in this encounter Progress Notes Alfred Rios MD - 04/24/2015 1:11 PM CDT HPI SUBJECTIVE: Anthony Chun is a 65 year old male who presents to clinic today for the following health issues: Back Pain ?? Duration: moved in December- has progressively got worse Specific cause: may be related to move from lifting heavy ?? Description: Location of pain: low back right and gluteus right Character of pain: stabbing Pain radiation:radiates into the right buttocks New numbness or weakness in legs, not attributed to pain: YES ?? Intensity: Currently 2/10, At its worst 10/10 ?? History: Pain interferes with job: YES, History of back problems: no prior back problems Any previous MRI or X-rays: None Sees a specialist for back pain: Sees chiropractor upstairs Therapies tried: acetaminophen (Tylenol), chiropractor, heat and NSAIDs ?? Alleviating factors: Improved by: chiropractor and heat ?? Precipitating factors: Worsened by: Sitting ?? Functional and Psychosocial Screen (Kimberly STarT Back): Not performed today ?? Accompanying Signs & Symptoms: Risk of Fracture: None Risk of Cauda Equina: None Risk of Infection: None Risk of Cancer: None Risk of Ankylosing Spondylitis: Onset at age <35, male, AND morning back stiffness. no R lower back pain in buttock and numbness into back of his R leg. Has been doing chiro for the last several months, not helping. Had dislocated hip as . REcently after mowing lawn on riding mowerhad difficulty getting up. Pain is from SI into buttock. Has been using lots of Advil, but swithced off recently when BMP showed some CRF. Switched to tylenol, not working as well. NO bowel or bladder issues, feels like he's having some weakness in legs. Reviewed recent stress test showing reversible ischemia. Review of Systems Constitutional: Negative. Respiratory: Negative. Cardiovascular: Negative. Gastrointestinal: Negative. Genitourinary: Negative. Musculoskeletal: Positive for back pain and joint pain. Neurological: Positive for focal weakness. Physical Exam Constitutional: He is well-developed, well-nourished, and in no distress. Cardiovascular: Normal rate, regular rhythm and normal heart sounds. Pulmonary/Chest: Effort normal and breath sounds normal. Musculoskeletal: Lumbar back: He exhibits decreased range of motion, tenderness and spasm. Neurological: He has normal strength. He has a normal Straight Leg Raise Test. Gait normal. Reflex Scores: Patellar reflexes are 2+ on the right side and 2+ on the left side. Achilles reflexes are 2+ on the right side and 2+ on the left side. Skin: Skin is warm and dry. No rash noted. Nursing note and vitals reviewed. (M54.16) Lumbar radiculopathy (primary encounter diagnosis) Comment: will consider injection vs surg vs PT Plan: MR Lumbar Spine w/o Contrast (I25.9) Cardiac ischemia Comment: reviewed stress test results. 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 Back Pain Initial BP 120/64 mmHg Pulse 96 Temp(Src) 97.9 ??F (36.6 ??C) (Oral) Ht 5' 6.25 (1.683 m) Wt 166 lb (75.297 kg) BMI 26.58 kg/m2 SpO2 97% Estimated body mass index is 26.58 kg/(m^2) as calculated from the following: Height as of this encounter: 5' 6.25 (1.683 m). Weight as of this encounter: 166 lb (75.297 kg). 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 The most prominent finding is that of a large right central disc extrusion at L4-L5 that posteriorly disp laces and compresses the descending right L5 nerve root. Moderate to severe central stenosis and moderate bilateral foraminal stenosi s. 2. There is moderate central stenosis at L1-L2, and L2-L3. Moderate if not moderate to severe central stenosis at L3-L4. 3. There is moderate left and mild right foraminal stenosis at L2-L3, mild to moderate bilateral foraminal garth nosis at L3-L4, and mild to moderate left and mild right foraminal s tenosis at L5-S1. MARIA LUISA MARIANO MD Narrative 05/03/2015 2:49 PM CDT MRI LUMBAR SPINE WITHOUT CONTRAST ??05/02/2015 ??5:00 PM HISTORY: Low back pain radiating to the right leg. TECHNIQUE: Multiplanar multisequence MRI of the lumbar spine without contrast. COMPARISON: None. FINDINGS: The report is dictated assumin g five lumbar-type vertebral bodies. Sagittal images demonstrate norm al vertebral body height. Bone marrow signal is unremarkable. Tip of th e conus medullaris and cauda equina are unremarkable. T12-L1: Very mild disc bulge without garth nosis. L1-L2: Mild disc bulge and prominent fac et hypertrophy result in moderate central stenosis. Neural forame n are patent. L2-L3: Prominent facet hypertrophy. Mode rate disc bulge. Moderate central stenosis. Moderate left and mild right foraminal stenosis. L3-L4: Prominent facet hypertrophy. Mode rate disc bulge. Moderate if not moderate to severe central stenosis. Mild to moderate bilateral foraminal stenosis. L4-L5: Large right central disc extrusio n posteriorly displaces and likely compresses the descending right L 5 nerve root. Moderate to severe central stenosis. Moderate bilate ral foraminal stenosis. L5-S1: Left greater than right facet hyp ertrophy. Broad-based disc bulge. No central stenosis. Mild to mode rate left and mild right foraminal stenosis. Paraspinous soft tissues: Unremarkable. Procedure Note LinkMaria Luisa MD - 05/03/2015Formattin g of this note might be different from the original. MRI LUMBAR SPINE WITHOUT CONTRAST 2014 5:00 PM HISTORY: Low back pain radiating to the right leg. TECHNIQUE: Multiplanar multisequence MRI of the lumbar spine without contrast. COMPARISON: None. FINDINGS: The report is dictated assumin g five lumbar-type vertebral bodies. Sagittal images demonstrate norm al vertebral body height. Bone marrow signal is unremarkable. Tip of th e conus medullaris and cauda equina are unremarkable. T12-L1: Very mild disc bulge without garth nosis. L1-L2: Mild disc bulge and prominent fac et hypertrophy result in moderate central stenosis. Neural forame n are patent. L2-L3: Prominent facet hypertrophy. Mode rate disc bulge. Moderate central stenosis. Moderate left and mild right foraminal stenosis. L3-L4: Prominent facet hypertrophy. Mode rate disc bulge. Moderate if not moderate to severe central stenosis. Mild to moderate bilateral foraminal stenosis. L4-L5: Large right central disc extrusio n posteriorly displaces and likely compresses the descending right L 5 nerve root. Moderate to severe central stenosis. Moderate bilate ral foraminal stenosis. L5-S1: Left greater than right facet hyp ertrophy. Broad-based disc bulge. No central stenosis. Mild to mode rate left and mild right foraminal stenosis. Paraspinous soft tissues: Unremarkable. IMPRESSION IMPRESSION: 1. The most prominent finding is that of a large right central disc extrusion at L4-L5 that posteriorly disp laces and compresses the descending right L5 nerve root. Moderate to severe central stenosis and moderate bilateral foraminal stenosi s. 2. There is moderate central stenosis at L1-L2, and L2-L3. Moderate if not moderate to severe central stenosis at L3-L4. 3. There is moderate left and mild right foraminal stenosis at L2-L3, mild to moderate bilateral foraminal garth nosis at L3-L4, and mild to moderate left and mild right foraminal s tenosis at L5-S1. 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
--- OUTSIDE RECORDS SUMMARY | 2022-04-28 22:58 | XMS_ITS | Encounter Summary ---
:1950 Author Organization [place] Address [address] [facility] [facility] [place] [address] Care Team Providers Name Role Phone Yi Morales MD Primary Care Provider [phone] Yi Morales MD Unavailable Yi Morales MD Unavailable Encounter Details Date Type Department Care Team Description 05/06/2015 Hospital Encounter [facility] Alton Flowers S tat post coronary angiogram (Primary Dx); Steve Hardin MD Abnormal cardiovascular stress test Suites [facility] [address] [facility] [address] [place], [place] [address] [id number] [phone] [place] [address] Social History Tobacco Use Types [...] Reading Time Taken Comments Blood Pressure 122/66 05/06/2015 3:30 PM CDT Pulse 76 05/06/2015 1:00 PM CDT Temperature - - Respiratory Rate 16 05/06/2015 1:30 PM CDT Oxygen Saturation 96% 05/06/2015 3:30 PM CDT Inhaled Oxygen Concentration - - Weight 75.1 kg (165 lb 9.6 oz) 05/06/2015 8:58 AM CDT Height 167.6 cm (5' 6) 05/06/2015 8:58 AM CDT Body Mass Index 26.73 05/06/2015 8:58 AM CDT documented in this encounter Discharge Instructions Discharge Jerilyn Saleh RN - 05/06/2015 1:26 PM CDT Images from the original note were not included. Going Home after an Angiogram (Coronary) Patient Name: Anthony Chun Date of Procedure: May 06, 2015 Doctor: Radha After you go home: ?? Have an adult stay with you for 24 hours. ?? Drink plenty of fluids. ?? You may eat your normal diet, unless your doctor tells you otherwise. ?? For 24 hours: ?? Relax and take it easy. ?? Do NOT smoke. ?? Do NOT make any important or legal decisions. ?? Do NOT drive or operate machines at home or at work. ?? Do NOT drink alcohol. ?? Remove the Band-Aid after 24 hours. If there is minor oozing, apply another Band-aid and remove it after 12 hours. ?? For 2 days, do NOT have sex or do any heavy exercise. ?? Do NOT take a bath, or use a hot tub or pool for at least 3 days. You may shower. Care of groin site It is normal to have a small bruise or lump at the site. ?? Do not scrub the site. ?? For the first 2 days: Do not stoop or squat. When you cough, sneeze or move your bowels, hold your hand over the puncture site and press gently. ?? Do not lift more than 10 pounds for at least 3 to 5 days. ?? Do not use lotion or powder near the puncture site for 3 days. If you start bleeding from the site in your groin, lie down flat and press firmly on the site. Call your doctor as soon as you can. Call 911 right away if you have bleeding that is heavy or does not stop. Call your doctor if: ?? You have a large or growing hard lump around the site. ?? The site is red, swollen, hot or tender. ?? Blood or fluid is draining from the site. ?? You have chills or a fever greater than 101??F (38??C). ?? Your leg or arm feels numb or cool. ?? You have hives, a rash or unusual itching. [facility] [place]: [phone] documented in this encounter Medications at Time of Discharge Medication Sig Dispensed Refills Start Date End Date aspirin 81 MG Take 1 tablet (81 30 tablet 12 04/30/201505/12 tabletIndications: Abnormal mg) by mouth cardiovascular stress test daily atorvastatin (LIPITOR) 40 MG Take 1 tablet (40 30 tablet 12 04/30/2015 07/31/2015 tabletIndications: Abnormal mg) by mouth cardiovascular stress test daily hydrochlorothiazide Take 25 mg by 0 (HYDRODIURIL) 25 MG tablet mouth daily metoprolol (TOPROL-XL) 50 MG Take 1 tablet (50 30 tablet 3 05/06/2015 05/25/2015 24 hr tabletIndications: mg) by mouth Abnormal cardiovascular daily stress test, Status post coronary angiogram nitroglycerin (NITROSTAT) One tablet under 25 tablet 3 04/1201/31/2016 0.4 MG SL tabletIndications: the tongue every Abnormal cardiovascular 5 minutes if stress test, Status post needed for chest coronary angiogram pain. May repeat every 5 minutes for a maximum of 3 doses in 15 minutes traMADol (ULTRAM) 50 MG Take 1 tablet (50 30 tablet 0 04/2605/22/2015 tabletIndications: Acute low mg) by mouth back pain every 6 hours as needed for moderate pain documented as of this encounter Progress Notes Jerilyn Pearl, RN - 05/06/2015 4:05 PM CDT Patient escorted per nurse to 's car. Jerilyn Pearl RN - 05/06/2015 2:42 PM CDT Discharge instructions reviewed with the patient and , questions answered, both expressed understanding and a copy given to the patient. Medications - metoprol and nitro came from pharmacy and givento the patient. UA, MRSA nasal swab, blood work and ultrasound done, call placed to the heart clinicto schedule an echo prior to surgery. Patient up and ambulating well without bleed or hematoma. Anastasia Izquierdo PA-C - 05/06/2015 2:27 PM CDT Chart reviewed, patient seen with Dr. Slaughter, discussed with Dr. Orosco. Have arranged for patient to see Dr. Celis in consultation for robotic-assisted CABG on May 13 at 3:30 at [facility]. Informational booklet provided. Preoperative labs and imaging studies ordered. All questions were answered to the patient's satisfaction. Anastasia Izquierdo PA-C Physicians - Cardiothoracic Surgery Pager: [phone] Kishore Slaughter MD - 05/06/2015 2:07 PM CDT Pt seen, note dictated. 65 yo WM with exertional SOB and occ CP. Positive stress test. Angio shows proximal LAD stenosis with other mild scattered disease. Recommend robotic assisted RIVAS to LAD. Will arrange to see Dr Jaun Celis this week if possible. Jerilyn Pearl RN - 05/06/2015 10:40 AM CDT Patient arrived ambulatory, alert and oriented, with . Skin is warm and dry, color is good, calllight given to the patient. Heart cath video was offered to patient and but they declined watching it. Patient awaiting his procedure. documented in this encounter Consult Notes Kishore Slaughter MD - 05/06/2015 2:07 PM CDT REASON FOR CONSULTATION: We have been asked by Dr. Orosco to see Mr. 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 HISTORY OF PRESENT ILLNESS: Mr. Anthony Chun is a 65-year-old gentleman who over the last year or so reported a history of recurrent episodes of shortness of breath with exertion. He has occasionally had right upper anterior chest discomfort with pulling his golf cart this past summer. He usually rests and these episodes are relieved within a minute or so. He denies nocturnal angina or postprandial discomfort. His symptoms have been relatively predictable. The patient underwent an exercise stress test which demonstrated 2 mm of inferolateral horizontal ST depression at peak exercise with some 1/10mild chest discomfort. The patient has recently been found to have some mild chronic renal disease with a creatinine of 1.34. The patient has had no significant systemic issues and is not diabetic. He has been on pravastatin for long-term hyperlipidemia. The patient otherwise has been healthy except for some bilateral arthroscopic knee surgery. His angiogram done today demonstrates tight proximal LADstenosis originating in a somewhat mild distal left main. The circumflex artery which is codominant does not involve the ejection fraction, is well preserved and there is a less than 50% stenosis in the mid right coronary artery. He is referred at this time for consideration for interventional therapy. PAST MEDICAL HISTORY: Relatively benign. He specifically denies any pulmonary issues. He has a history of hypertension and hyperlipidemia. ALLERGIES: He is allergic to nickel which does cause a contact rash. MEDICATIONS: 1. Aspirin 81 mg daily. 2. Atorvastatin 40 mg daily. 3. Ultram 50 mg q.6 h. p.r.n. pain. 4. HydroDIURIL 25 mg daily. PAST SURGICAL HISTORY: Includes rotator cuff repair both right and left, arthroscopic knee surgery, both right and left, Achilles release on the left side in 2009, septoplasty in 1977 and a vasectomy in 1979. FAMILY HISTORY: Positive for a father who had a myocardial infarction at age 40 and a brother who had a CVA postoperatively. Mother also had CVA. SOCIAL HISTORY: He is . He is a former smoker who quit in 1999. He drinks occasional beer. REVIEW OF SYSTEMS: Positive for right buttock discomfort which occurs with prolonged sitting and forwhich he had a recent MRI, the results of which were apparently not available to him. He otherwise denies any neurologic, GI or other musculoskeletal issues. PHYSICAL EXAMINATION: GENERAL: Shows an alert, oriented, robust appearing gentleman. VITAL SIGNS: Blood pressure is 125/62, heart rate is 76, respirations are 16 and unlabored. The patient is afebrile. NEUROLOGIC: Cranial nerves II-XII are intact. HEENT: Normal. NECK: Supple, carotid pulses are present bilaterally without bruits. LUNGS: Clear. HEART: Regular without murmurs, rubs or gallops. ABDOMEN: Soft without masses or tenderness. EXTREMITIES: Warm, there is no cyanosis or edema. I cannot palpate dorsalis pedis or posterior tibial pulses. Motion and sensation appear to be intact. I have had a nice discussion with Mr. Chun, and his who is present. I believe the robotic intervention is probably the best course as I suspect there is too much flow in the right coronary artery to support a vein bypass. I have made the arrangements for him to be seen by Dr. Milan Celis our robotic surgeon in the very near future. In the meantime, we did talk about the procedure, including risks, complications, benefits and alternative methods of treatment. I cautioned the patient that should his symptoms change in any way we need to hear from him immediately. Thanks for the opportunity to participate in his evaluation and care. KISHORE SLAUGHTER MD [place]: [id number] Name: ANTHONY CHUN Account: [id number] : 1950 Consult Date: 05/06/2015 Document: [id number] D AUDITOR documented in this encounter Plan of Treatment Not on filedocumented as of this encounter Procedures Procedure Name Priority Date/Time Associated Diagnosis Comme nts ECHO COMPLETE Routine 05/10/2015 7:57 Results for this AM CDT procedure are i n the results section. US CAROTID BILATERAL Routine 05/06/2015 3:44 Resu lts for this PM CDT procedure are i n the results section. US MANSOOR DOPPLER NO Routine 05/06/2015 3:40 Results for this EXERCISE, 1-2 PM CDT procedure are in LEVELS,?? BILAT the results section. UA MACROSCOPIC WITH Routine 05/06/2015 2:35 Status post josue ry Results for this REFLEX TO MICRO AND PM CDT angiogram procedur e are in CULTURE the results section. MRSA MSSA PCR, NASAL Routine 05/06/2015 1:15 Status post coron stacy Results for this SWAB PM CDT angiogram procedure are i n the results section. HEMOGLOBIN A1C STAT 05/06/2015 1:10 Status post coronary Re sults for this PM CDT angiogram procedure are i n the results section. ABO/RH TYPE AND SCREEN STAT 05/06/2015 1:10 Status post cor onary Results for this PM CDT angiogram procedure are i n the results section. HEART CATH LEFT HEART Routine 05/06/2015 12:07 Abnormal Re sults for this CATH PM CDT cardiovascular stress proced ure are in test the results section. EKG 12-LEAD, TRACING STAT 05/06/2015 9:26 Resu lts for this ONLY AM CDT procedure are i n the results section. INR STAT 05/06/2015 9:20 Abnormal Results for this AM CDT cardiovascular stress proced ure are in test the results section. POTASSIUM STAT 05/06/2015 9:20 Abnormal Results for this AM CDT cardiovascular stress proced ure are in test the results section. PARTIAL THROMBOPLASTIN STAT 05/06/2015 9:20 Abnormal Re sults for this TIME AM CDT cardiovascular stress proced ure are in test the results section. documented in this encounter Results Echocardiogram (05/10/2015 7:57 AM CDT) Anatomical Region Laterality Modality Echocardiography Specimen (Source) Anatomical Collection Method Collection Time Re ceived Time Location / / Volume Laterality 05/10/2015 7:46 AM CDT Narrative 05/10/2015 9:19 AM CDT Interpretation Summary [facility] [address] [place] [address] Name: ANTHONY CHUN : 1950 Study Date: 05/10/2015 07:46 AM Age: 65 yrs Gender: Male Patient [place] [facility] [place] Reason For Study: CAD Ordering Physician: ANASTASIA IZQUIERDO Referring Physician: YI MORALES Performed By: Noam Delatorre RDCS BSA: 1.9 m2 Height: 66 in Weight: 167 lb HR: 61 BP: 110/60 mmHg Procedure Complete Echo Adult. Interpretation Summary The left ventricle is normal in size. Left ventricular systolic function is no rmal. The visual ejection fraction is estimate d at 55-60%. The right ventricle is normal size. The right ventricular systolic function is normal. The left atrium is mildly dilated. The IVC is normal in size and reactivity with respiration, suggesting normal central venous pressure. Left Ventricle The left ventricle is normal in size. Th ere is normal left ventricular wall thickness. Left ventricular systolic fun ction is normal. The visual ejection fraction is estimated at 55-60%. No pako onal wall motion abnormalities noted. Right Ventricle The right ventricle is normal size. The right ventricular systolic function is normal. Atria The left atrium is mildly dilated. Right atrial size is normal. Mitral Valve The mitral valve leaflets appear normal. There is no evidence of stenosis, fluttering, or prolapse. There is trace to mild mitral regurgitation. Tricuspid Valve Normal tricuspid valve. There is trace t ricuspid regurgitation. The right ventricular systolic pressure is approxi mated at 17mmHg plus the right atrial pressure. Aortic Valve The aortic valve is trileaflet. No aorti c regurgitation is present. Pulmonic Valve The pulmonic valve is not well visualize d. Vessels The aortic root is normal size. Normal s ize ascending aorta. The IVC is normal in size and reactivity with respi ration, suggesting normal central venous pressure. Pericardium There is no pericardial effusion. Rhythm The rhythm was normal sinus. MMode/2D Measurements & Calculations IVSd: 0.88 cm LVIDd: 4.3 cm LVIDs: 2.8 cm LVPWd: 1.0 cm FS: 35.7 % EDV(Teich): 82.9 ml ESV(Teich): 28.5 ml LV mass(C)d: 132.3 grams Ao root diam: 3.2 cm LA dimension: 3.5 cm asc Aorta Diam: 3.0 cm LA/Ao: 1.1 LA Volume (BP): 67.0 ml LA Volume Index (BP): 36.0 ml/m2 Doppler Measurements & Calculations MV E max chas: 62.0 cm/sec MV A max chas: 44.5 cm/sec MV E/A: 1.4 MV dec slope: 339.3 cm/sec2 MV dec time: 0.18 sec TR max chas: 210.5 cm/sec TR max P.7 mmHg Report approved by: Benito Son 04/13 09:19 AM Procedure Note Juan Ramon Ramírez MD - 05/10/2015Formatt ing of this note might be different from the original. Interpretation Summary [facility] [address] [place] [id number] Name: ANTHONY CHUN : 1950 Study Date: 05/10/2015 07:46 AM Age: 65 yrs Gender: Male Patient [place] [facility] [place] Reason For Study: CAD Ordering Physician: ANASTASIA IZQUIERDO Referring Physician: YI MORALES Performed By: Noam Delatorre RDCS BSA: 1.9 m2 Height: 66 in Weight: 167 lb HR: 61 BP: 110/60 mmHg Procedure Complete Echo Adult. Interpretation Summary The left ventricle is normal in size. Left ventricular systolic function is no rmal. The visual ejection fraction is estimate d at 55-60%. The right ventricle is normal size. The right ventricular systolic function is normal. The left atrium is mildly dilated. The IVC is normal in size and reactivity with respiration, suggesting normal central venous pressure. Left Ventricle The left ventricle is normal in size. Th ere is normal left ventricular wall thickness. Left ventricular systolic fun ction is normal. The visual ejection fraction is estimated at 55-60%. No pako onal wall motion abnormalities noted. Right Ventricle The right ventricle is normal size. The right ventricular systolic function is normal. Atria The left atrium is mildly dilated. Right atrial size is normal. Mitral Valve The mitral valve leaflets appear normal. There is no evidence of stenosis, fluttering, or prolapse. There is trace to mild mitral regurgitation. Tricuspid Valve Normal tricuspid valve. There is trace t ricuspid regurgitation. The right ventricular systolic pressure is approxi mated at 17mmHg plus the right atrial pressure. Aortic Valve The aortic valve is trileaflet. No aorti c regurgitation is present. Pulmonic Valve The pulmonic valve is not well visualize d. Vessels The aortic root is normal size. Normal s ize ascending aorta. The IVC is normal in size and reactivity with respi ration, suggesting normal central venous pressure. Pericardium There is no pericardial effusion. Rhythm The rhythm was normal sinus. MMode/2D Measurements & Calculations IVSd: 0.88 cm LVIDd: 4.3 cm LVIDs: 2.8 cm LVPWd: 1.0 cm FS: 35.7 % EDV(Teich): 82.9 ml ESV(Teich): 28.5 ml LV mass(C)d: 132.3 grams Ao root diam: 3.2 cm LA dimension: 3.5 cm asc Aorta Diam: 3.0 cm LA/Ao: 1.1 LA Volume (BP): 67.0 ml LA Volume Index (BP): 36.0 ml/m2 Doppler Measurements & Calculations MV E max chas: 62.0 cm/sec MV A max chas: 44.5 cm/sec MV E/A: 1.4 MV dec slope: 339.3 cm/sec2 MV dec time: 0.18 sec TR max chas: 210.5 cm/sec TR max P.7 mmHg Report approved by: Benito Son 04/13 09:19 AM Anastasia Izquierdo PA-C CV ECHO ORDERABLES US Carotid Bilateral (05/06/2015 3:44 PM CDT) Anatomical Region Laterality Modality Vascular, Head Ultrasound Specimen (Source) Anatomical Location Collection Method / Collectio n Time Received Time / Laterality Volume Impressions 05/06/2015 4:31 PM CDT IMPRESSION: ?? 1. Greater than 70% diameter stenosis of the right ICA relative to the distal ICA diameter. 2. Less than 50% diameter stenosis of th e left ICA relative to the distal ICA diameter. CHARIS PACHECO MD Narrative 05/06/2015 4:31 PM CDT BILATERAL CAROTID ULTRASOUND ?? 05/06/2015 3:44 PM COMPARISON: None. HISTORY: ??Preoperative evaluation, irma nary artery bypass. RIGHT CAROTID FINDINGS: ??There is calci fied and noncalcified atherosclerotic plaque in the carotid bi furcation. Right ICA PSV: ??267 ??cm/sec. Right ICA EDV: ??93 cm/sec. Right ICA/CCA PSV Ratio: ??2.6 ?? These indicate greater than 70% diameter stenosis of the right ICA. ?? Right Vertebral: Antegrade flow. Right ECA: Antegrade flow. LEFT CAROTID FINDINGS: ??There is calcif ied and noncalcified atherosclerotic plaque in the carotid bi furcation. Left ICA PSV: ??112 ??cm/sec. Left ICA EDV: ??27 cm/sec. Left ICA/CCA PSV Ratio: ??1.0 ?? These indicate less than 50% diameter st enosis of the left ICA. ?? Left Vertebral: Antegrade flow. Left ECA: Antegrade flow. Causes of Decreased Accuracy: ?? None. Procedure Note Charis Pacheco MD - 05/06/2015Forma tting of this note might be different from the original. BILATERAL CAROTID ULTRASOUND 05/06/2015 3:44 PM COMPARISON: None. HISTORY: Preoperative evaluation, josue ry artery bypass. RIGHT CAROTID FINDINGS: There is calcifi ed and noncalcified atherosclerotic plaque in the carotid bi furcation. Right ICA PSV: 267 cm/sec. Right ICA EDV: 93 cm/sec. Right ICA/CCA PSV Ratio: 2.6 These indicate greater than 70% diameter stenosis of the right ICA. Right Vertebral: Antegrade flow. Right ECA: Antegrade flow. LEFT CAROTID FINDINGS: There is calcifie d and noncalcified atherosclerotic plaque in the carotid bi furcation. Left ICA PSV: 112 cm/sec. Left ICA EDV: 27 cm/sec. Left ICA/CCA PSV Ratio: 1.0 These indicate less than 50% diameter st enosis of the left ICA. Left Vertebral: Antegrade flow. Left ECA: Antegrade flow. Causes of Decreased Accuracy: None. IMPRESSION IMPRESSION: 1. Greater than 70% diameter stenosis of the right ICA relative to the distal ICA diameter. 2. Less than 50% diameter stenosis of th e left ICA relative to the distal ICA diameter. CHARIS PACHECO MD Anastasia Izquierdo PA-C IMG US ORDERABLES US MANSOOR Doppler No Exercise (05/06/2015 3:40 PM CDT) Anatomical Region Laterality Modality Extremity Ultrasound Specimen (Source) Anatomical Location Collection Method / Collectio n Time Received Time / Laterality Volume Impressions 05/06/2015 3:53 PM CDT IMPRESSION: Ankle-brachial indices are in the range of normal. ?? BOB LISA MD Narrative 05/06/2015 3:53 PM CDT US MANSOOR DOPPLER NO EXERCISE ??05/06/2015 3:40 PM HISTORY: + leg/buttock pain. ??Preop matt luation CAB, COMPARISON: 65-year-old male with leg an d buttock pain on the right side FINDINGS: The resting right and left ankle-brachia l indices are 1.35 and 1.28 respectively. Resting arterial waveforms in the distal tibial arteries are multiphasic. Procedure Note Bob Lisa MD - 05/06/2015F ormatting of this note might be different from the original. US MANSOOR DOPPLER NO EXERCISE 05/06/2015 3: 40 PM HISTORY: + leg/buttock pain. Preop evalu ation CAB, COMPARISON: 65-year-old male with leg an d buttock pain on the right side FINDINGS: The resting right and left ankle-brachia l indices are 1.35 and 1.28 respectively. Resting arterial waveforms in the distal tibial arteries are multiphasic. IMPRESSION IMPRESSION: Ankle-brachial indices are i n the range of normal. BOB LISA MD Anastasia Izquierdo PA-C IMG US ORDERABLES (ABNORMAL) UA reflex to Microscopic and Culture (05/06/2015 2:35 PM CDT) [facility] Method Time Signature Color Urine Light Yellow [facility] Appearance Urine Clear [facility] Glucose Urine Negative NEG mg/dL [facility] Bilirubin Urine Negative NEG [facility] Ketones Urine 5 (A) NEG mg/dL [facility] Specific [place] 1.039 (H) 1.003 - [place] Urine 1.035 [facility] Blood Urine Negative NEG [facility] pH Urine 6.5 5.0 - 7.0 [place] pH [facility] Protein Albumin Negative NEG mg/dL [facility] Urobilinogen Normal 0.0 - 2.0 [place] mg/dL mg/dL [facility] Nitrite Urine Negative NEG [facility] Leukocyte Negative NEG [place] Esterase Urine [facility] Source Midstream [facility] Specimen Anatomical Collection Method Collection Time Receive d Time (Source) Location / / Volume Laterality Urine specimen 05/06/2015 2:35 PM 015 2:49 (specimen) CDT PM CDT Anastasia Izquierdo PA-C LAB - URINE ORDERABLES Performing Organization Address City/State/ZIP Code Phon e Number M [facility] [address] [address] [facility] [address] [address], [place] [phone] Methicillin Resistant Staph Aureus PCR (05/06/2015 1:15 PM CDT) Component Value Ref Test Analysis Performed At [facility] Range Method Time Signature Specimen Nares [facility] Methicillin Negative [facility] Resist/Sens S. MRSA Negative: SA Negative ? ?MRSA and Staphylococcus aureus target DNA not [place] [facility] aureus PCR detected, presumed negative for MRSA and SA colonization or the number of [facility] bacteria present may be below the limit of detection for the assay. FDA BANK approved assay performed using [employer] GeneXpert(R) real-ti me PCR. Specimen (Source) Anatomical Collection Method Collection Time Re ceived Time Location / / Volume Laterality Nasal structure 05/06/2015 1:15 5 1:40 (body structure) PM CDT PM CDT Anastasia OLIVA-C LAB - MICRO GENERAL ORDERABL ES Performing Organization Address City/State/ZIP Code Phon e Number [facility] [address] [place] [address] [facility] [address] [place] [address], [place] [phone] Hemoglobin A1c (05/06/2015 1:10 PM CDT) P athologist Signature Hemoglobin A1C 6.0 4.3 - 6.0 [facility] Specimen Anatomical Collection Method Collection Time Receive d Time (Source) Location / / Volume Laterality Blood specimen 05/06/2015 1:10 PM 015 1:28 (specimen) CDT PM CDT Anastasia OLIVA-C LAB - BLOOD ORDERABLES Performing Organization Address City/State/ZIP Code Phon e Number [facility] [address] [place] [address] [phone] M [facility] [address] [place] [address], [place] [phone] ABO/Rh type and screen (05/06/2015 1:10 PM CDT) [facility] Method Time Signature ABO B [facility] [facility] RH(D) Pos [facility] Antibody Neg [place] Screen [facility] Test Valid [facility]PITAL Specimen 05/09/2015 [place] Expires [facility] Specimen Anatomical Collection Method Collection Time Receive d Time (Source) Location / / Volume Laterality Blood specimen 05/06/2015 1:10 PM 015 1:28 (specimen) CDT PM CDT Anastasia Izquierdo PA-C LAB - BLOOD BANK TEST ORDER Performing Organization Address City/State/ZIP Code Phon e Number M [facility] [address] [place] [address] [phone] [facility] [address] [place] [address], U [phone] Heart Cath Left heart cath (05/06/2015 12:07 PM CDT) Anatomical Region Laterality Modality Radio Fluoroscopy Specimen (Source) Anatomical Location Collection Method / Collectio n Time Received Time / Laterality Volume Narrative 05/06/2015 1:56 PM CDT LEFT HEART CATHETERIZATION HISTORY: This gentleman has history of h yperlipidemia who presents with chest pain and shortness of breath with a positive stress test. Heart catheterization is requested as a result. Codominant coronary system: Left main artery: Left main artery is ca lcified. The left main artery distally, just before it bifurcates, has a smooth, calcified 25-30% narrowing. Left anterior descending: LAD is calcifi ed proximally. There is a severe true ostial narrowing of the LAD. It is involved with part of the left main lesion. This LAD lesion at the ostium is 80-90% narrowed. The proximal LAD is calcified after this, but there is only mild disease after the first diagonal an d first septal metal cnc operator. There is narrowing up to approximately 3 0% in the LAD. The remainder of the LAD is relatively normal. The fir st diagonal vessel is a small diagonal vessel. It does have narrowing in its mid body of approximately 30-40%, but it is a small vessel measuring under 2 mm in diameter. Left circumflex: Left circumflex is a la rge codominant system. There is mild narrowing at the origin which is really continuation of the left main lesion. Again this is 30% or l ess. OM1 is a large branch vessel which has a proximal narrowing of 35-40%. The left circumflex proper continues down the AV groove and is relatively normal. It gives off a small left-sided PDA vessel. Right coronary artery: The right coronar y artery is a codominant vessel approximately a third [address] way down the vessel, there is narrowing on a gelatin plant supervisor to 40 closer to 5 0%. The distal RCA is normal and the right PDA vessel is normal. Ther e is a milder degrees of narrowing throughout the entire mid RCA just after this 40-50% RCA lesion. Left ventriculogram: The left ventricula r size and systolic function is normal with ejection fraction 55%. Th ere is no mitral valve insufficiency. LV pressure 113/10. There is no gradient on pullback. CONCLUSION: 1. Codominant system. 2. Critical ostial LAD lesion in a calci fied left main ostial LAD. I think we should call for cardiovascular surgery consult. Will ask the surgeon to evaluate for possible bypass surgery. Options would include a robotic RIVAS graft to LAD and then we could consider elective stenting of the RCA at a future date if necessary or consider a standard bypass surgery with grafting to the LAD and right coronary artery. ??The right coronary artery is o nly moderate. This lesion may be approachable by percutaneous interven tion but my concern is that the left main artery is calcified at the exact takeoff of the ostial LAD and the ostial LAD is calcified, the refore may have to be debulked with Rotablator and to affectively treat this, might require placing a stent from the left main artery into the LAD crossing the left circumflex. This becomes a very complex bifurcation lesion and should it re-stenose, his codominant would be a large area of potential ischemia. It may be actually safer to go to bypass surgery. In the interim, his statin was just increased a nd he was placed on HCTZ. I am going to add Toprol 50 mg daily to his c urrent medications while he is awaiting surgical consult and sublingual nitroglycerin. There are no complications. MAGNO OROSCO MD Procedure Note Magno Orosco MD - 05/06/2015Format ting of this note might be different from the original. LEFT HEART CATHETERIZATION HISTORY: This gentleman has history of h yperlipidemia who presents with chest pain and shortness of breath with a positive stress test. Heart catheterization is requested as a result. Codominant coronary system: Left main artery: Left main artery is ca lcified. The left main artery distally, just before it bifurcates, has a smooth, calcified 25-30% narrowing. Left anterior descending: LAD is calcifi ed proximally. There is a severe true ostial narrowing of the LAD. It is involved with part of the left main lesion. This LAD lesion at the ostium is 80-90% narrowed. The proximal LAD is calcified after this, but there is only mild disease after the first diagonal an d first septal metal cnc operator. There is narrowing up to approximately 3 0% in the LAD. The remainder of the LAD is relatively normal. The fir st diagonal vessel is a small diagonal vessel. It does have narrowing in its mid body of approximately 30-40%, but it is a small vessel measuring under 2 mm in diameter. Left circumflex: Left circumflex is a la rge codominant system. There is mild narrowing at the origin which is really continuation of the left main lesion. Again this is 30% or l ess. OM1 is a large branch vessel which has a proximal narrowing of 35-40%. The left circumflex proper continues down the AV groove and is relatively normal. It gives off a small left-sided PDA vessel. Right coronary artery: The right coronar y artery is a codominant vessel approximately a [address] down the vessel, there is narrowing on a gelatin plant supervisor to 40 closer to 5 0%. The distal RCA is normal and the right PDA vessel is normal. Ther e is a milder degrees of narrowing throughout the entire mid RCA just after this 40-50% RCA lesion. Left ventriculogram: The left ventricula r size and systolic function is normal with ejection fraction 55%. Th ere is no mitral valve insufficiency. LV pressure 113/10. There is no gradient on pullback. CONCLUSION: 1. Codominant system. 2. Critical ostial LAD lesion in a calci fied left main ostial LAD. I think we should call for cardiovascular surgery consult. Will ask the surgeon to evaluate for possible bypass surgery. Options would include a robotic RIVAS graft to LAD and then we could consider elective stenting of the RCA at a future date if necessary or consider a standard bypass surgery with grafting to the LAD and right coronary artery. The right coronary artery is onl y moderate. This lesion may be approachable by percutaneous interven tion but my concern is that the left main artery is calcified at the exact takeoff of the ostial LAD and the ostial LAD is calcified, the refore may have to be debulked with Rotablator and to affectively treat this, might require placing a stent from the left main artery into the LAD crossing the left circumflex. This becomes a very complex bifurcation lesion and should it re-stenose, his codominant would be a large area of potential ischemia. It may be actually safer to go to bypass surgery. In the interim, his statin was just increased a nd he was placed on HCTZ. I am going to add Toprol 50 mg daily to his c urrent medications while he is awaiting surgical consult and sublingual nitroglycerin. There are no complications. MAGNO OROSCO MD Alton Flowers MD CV CARDIAC CATH ORDERABLES EKG 12-lead, tracing only (05/06/2015 9:26 AM CDT) [facility] gist Method Time Signature Interpretation ECG Click View RADIOLOGY Image link RESULTS to view waveform and result Specimen (Source) Anatomical Collection Method Collection Time Re ceived Time Location / / Volume Laterality 05/06/2015 9:26 AM CDT Alton Flowers MD ECG ORDERABLES Performing Organization Address City/State/ZIP Code Phon e Number RADIOLOGY RESULTS Potassium (05/06/2015 9:20 AM CDT) athologist Signature Potassium 3.4 3.4 - 5.3 [place] mmol/L [facility] Specimen Anatomical Collection Method Collection Time Receive d Time (Source) Location / / Volume Laterality Blood specimen 05/06/2015 9:20 AM 015 9:52 (specimen) CDT AM CDT Alton Flowers MD LAB - BLOOD ORDERABLES Performing Organization Address City/State/ZIP Code Phon e Number [facility] [address] [id number] [phone] [facility] [address] [address], [place] [phone] Partial thromboplastin time (05/06/2015 9:20 AM CDT) athologist Signature PTT 28 22 - 37 sec [facility] Specimen Anatomical Collection Method Collection Time Receive d Time (Source) Location / / Volume Laterality Blood specimen 05/06/2015 9:20 AM 015 9:32 (specimen) CDT AM CDT Alton Flowers MD LAB - BLOOD ORDERABLES Performing Organization Address City/State/ZIP Code Phon e Number M [facility] [address] [place] [address] [facility] [address] [place] [address], [place] [phone] INR (05/06/2015 9:20 AM CDT) P athologist Signature INR 0.95 0.86 - 1.14 [facility] Specimen Anatomical Collection Method Collection Time Receive d Time (Source) Location / / Volume Laterality Blood specimen 05/06/2015 9:20 AM 015 9:32 (specimen) CDT AM CDT Alton Flowers MD LAB - BLOOD ORDERABLES Performing Organization Address City/State/ZIP Code Phon e Number [facility] [address] [place] [address] [phone] [facility] [address] [place] [address], [place] [phone] documented in this encounter Visit Diagnoses Diagnosis Status post coronary angiogram - Primary Other postprocedural status Abnormal cardiovascular stress test Other nonspecific abnormal cardiovascula r system function study documented in this encounter Administered Medications Inactive Administered Medications - up to 3 most recent administrations Medication Order MAR Action Action Date Dose Rate Site 0.9% sodium chloride infusion New Bag 05/06/2015 9:55 AM CDT 150 mL/hr at 150 mL/hr, Intravenous, CONTINUOUS, 150 mL/hr IV for 2 hours prior to cardiac laborer poultry hatchery procedure, then decrease to 75 mL/hr to run throughout the procedure. Start at 0800 for inpatients. IF PATIENT IS RECEIVING RENAL DIALYSIS, RN to reduce rate of 0.9 % sodium chloride IV solution to 10 mL /hour (TKO) IV infusion to prevent fluid overload., Cardiac Pre-procedure, Starting on Wed05/06/15 at 0930, Until Wed05/06/15 at 1237 fentaNYL (SUBLIMAZE) injection 25-50 mcg Given 05/06/2015 12:01 PM CDT 25 mcg 25-50 mcg, Intravenous, EVERY 2 MIN PRN, moderate to severe pain, other, when verbally ordered by prescriber during the procedure., Starting on Wed05/06/15 at 1136, Doses can be exceeded under direct oversight of the patient by physician., Cardiac Intra-procedure Given 05/06/2015 11:45 AM CDT 50 mcg iopamidol (ISOVUE-370) 76% solution 75 m L Given 05/06/2015 12:15 PM CDT 75 mLs 75 mL, INTRA-ARTERIAL, ONCE, On Wed05/06/15 at 1215, For 1 dose, Cardiac Intra-procedure lidocaine (PF) (XYLOCAINE) 1 % Given by Other 05/06/2015 11:52 AM CDT 95 mg injection 10-100 mg 10-100 mg (1-10 mL), Subcutaneous, ONCE PRN, For local anesthesia for groin puncture as verbally ordered by prescriber during the procedure., Starting on Wed05/06/15 at 1136, For 1 dose, The provider administers the medication. Dose may be into smaller doses for administration., Cardiac Intra-procedure midazolam (VERSED) injection 0.5-2 mg Given 05/06/2015 12:01 PM CDT 0.5 mg 0.5-2 mg, Intravenous, EVERY 2 MIN PRN, other, when verbally ordered by prescriber during the procedure., Starting on Wed05/06/15 at 1136, Doses can be exceeded under direct oversight of the patient by physician., Cardiac Intra-procedure Given 05/06/2015 11:53 AM CDT 1 mg Given 05/06/2015 11:45 AM CDT 2 mg nitroglycerin Cmpd syr inj, 10ml 100-200 Given 05/06/2015 11:57 AM CDT 200 mcg mcg 100-200 mcg, INTRACORONARY, EVERY 1 MIN PRN, when verbally ordered by prescriber during procedure, Starting on Wed05/06/15 at 1136, Prescriber will infuse each dose, Cardiac Intra-procedure potassium chloride SA (K-DUR,KLOR-CON M) CR Given 04/12 10:13 AM CDT 20 mEq tablet 20 mEq 20 mEq, Oral, ONCE PRN, potassium supplementation, Starting on Wed05/06/15 at 0924, For 1 dose, If K+ is less than 4.0 MMOL/L give potassium chloride (K-DUR) If K+ is less than 3.5 MMOL/L give potassium chloride (K-DUR) and NOTIFY provider for further orders Prior to cardiac laborer poultry hatchery procedure., Cardiac Pre-procedure sodium chloride (PF) 0.9% PF flush 3 mL Given 05/06/2015 9:20 AM CDT 3 mLs 3 mL, Intracatheter, EVERY 8 HOURS, First dose on Wed05/06/15 at 0930, And Q1H PRN, to lock peripheral IV dormant line., Cardiac Pre-procedure documented in this encounter Active and Recently Administered Medications Times are shown in CDT. Scheduled Medication Order 05/04/2015 05/05/2015 05/06/2015 iopamidol (ISOVUE-370) 76% solution 75 mL (COMPLETED) 1215 (Given - Provider: Nancy Roque) 75 mL, INTRA-ARTERIAL, ONCE, Wed 5 at 1215, For 1 dose, Cardiac Intra-procedure sodium chloride (PF) 0.9% PF flush 3 mL (CANCELED) 0920 (Given - Provider: Jerilyn Pearl RN) 3 mL, Intracatheter, EVERY 8 HOURS, Firs t dose on Wed05/06/15 at 0930, And Q1H PRN, to lock peripheral IV dormant line., Cardiac Pre-procedure Continuous Medication Order 05/04/2015 05/05/2015 05/06/2015 0.9% sodium chloride infusion (CANCELED) 0955 (New Bag - Provider: Jerilyn Pearl RN) at 150 mL/hr, Intravenous, CONTINUOUS, 1 50 mL/hr IV for 2 hours prior to cardiac laborer poultry hatchery procedure, then decrease to 75 mL/hr to run throughout the procedure. Start at 0800 for inpatients. IF PATIENT I S RECEIVING RENAL DIALYSIS, RN to reduce rate of 0.9 % sodium chloride IV solution to 10 mL /hour (TKO) IV infusion to prevent fluid overload., Cardiac Pre-procedure, Starting Wed05/06/15 at 0930, Until Wed05/06/15 at 1237 PRN Medication Order 05/04/2015 05/05/2015 05/06/2015 fentaNYL (SUBLIMAZE) injection 25-50 mcg (CANCELED) 1145 (Given - Provider: Soco Mayen RN)1201 (Given - Provider: Soco Mayen RN) 25-50 mcg, Intravenous, EVERY 2 MIN PRN, Starting 05/06/15 at 1136, moderate to severe pain, other, when verbally ordered by prescriber during the procedure., Doses can be exceeded under direct over sight of the patient by physician., Cardiac Intra-procedure lidocaine (PF) (XYLOCAINE) 1 % injection 10-100 mg (COMPLETED) 1152 (Given by Other - Provider: Soco Mayen RN) 10-100 mg (1-10 mL), Subcutaneous, ONCE PRN, For local anesthesia for groin puncture as verbally ordered by prescriber during the procedure., Starting 05/06/15 at 1136, For 1 dose, The provider admi nisters the medication. Dose may be sepa rated into smaller doses for administration., Cardiac Intra-procedure midazolam (VERSED) injection 0.5-2 mg (CANCELED) 1145 (Given - Provider: Soco Mayen RN)1153 (Given - Provider: Soco Mayen RN)1201 (Given - Provider: Soco Mayen RN) 0.5-2 mg, Intravenous, EVERY 2 MIN PRN, Starting 05/06/15 at 1136, other, when verbally ordered by prescriber during the procedure., Doses can be exceeded under direct oversight of the patient by physician., Cardiac Intra-procedure nitroglycerin Cmpd syr inj, 10ml 100-200 mcg (CANCELED) 1157 (Given - Provider: Soco Mayen RN) 100-200 mcg, INTRACORONARY, EVERY 1 MIN PRN, when verbally ordered by prescriber during procedure, Starting 05/06/15 at 1136, Prescriber will infuse each dose, Cardiac Intra-procedure potassium chloride SA (K-DUR,KLOR-CON M) CR tablet 20 mEq (COMPL ETED) 1013 (Given - Provider: Jerilyn Pearl RN) 20 mEq, Oral, ONCE PRN, Starting Mon at 0924, For 1 dose, potassium supplementation, If K+ is less than 4.0 MMOL/L give potassium chloride (K-DUR) If K+ is less than 3.5 MMOL/L give potassium c hloride (K-DUR) and NOTIFY provider for further orders Prior to cardiac laborer poultry hatchery procedure., Cardiac Pre-procedure documented in this encounter Care Teams Training And Development Director Relationship Specialty Start Date End Date Yi Morales MD PCP - General Family Practice 04/18/15 Yi Morales MD PCP - Assigned PCP 03/22/15 09/13/18 [id number] [address] [id number] Yi Morales MD Assigned PCP 03/22/15 06/01/20 [id number] [address] [id number] documented as of this encounter
--- OUTSIDE RECORDS SUMMARY | 2022-04-28 22:58 | XMS_ITS | Encounter Summary ---
:1950 Author Organization [facility] Address [facility] [place] [address] Care Team Providers Name Role Phone Alfred Rios MD Primary Care Provider [phone] Alfred Rios MD Unavailable Alfred Rios MD Unavailable Reason for Visit Reason Onset Date Comments Previsit 05/03/2015 Coronary angiogram 1 Encounter Details Date Type Department Care Team Description 05/03/[address] [facility] Heart Abbey Sandoval, Previsit ([facility] [place] RN angiogram 05-06-15) [address] [facility] [address] [place] [address] Social History Tobacco Use Types Packs/Day Years Used Date Smoking Tobacco: Former Cigarettes Quit : 10/22/1999 Smokeless Tobacco: Never Alcohol Use Standard Drinks/Week Comments Yes 0 (1 standard drink = 0.6 oz pure alcoho l) 1-2 beers daily Sex Assigned at Date Recorded Male 12/31/2020 1:31 PM CDT documented as of this encounter Miscellaneous Notes Telephone Encounter - Abbey Sandoval RN - 05/03/2015 1:23 PM CDT BMP and CBC done 05-03-15 normal. Creatinine now 1.0 was 1.34 on 04-16-15 . Heart cath scheduled 05-06-15. Patient called with results Telephone Encounter - Abbey Sandoval RN - 05/03/2015 10:12 AM CDT Patient called with pre cath prep/instructions. All questions answered. Per Dr. Flowers's OV note 04-30-15 BMP and CBC was to be drawn prior to cath since creatinine was slightly elevated on last lab. Spoke with patient who agrees with going to [facility] this morning for lab draw. 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
--- OUTSIDE RECORDS SUMMARY | 2022-04-28 22:58 | XMS_ITS | Encounter Summary ---
:1950 Author Organization [place] Address [address] [facility] [place] [address] Care Team Providers Name Role Phone Alfred Rios MD Primary Care Provider [phone] Alfred Rios MD Unavailable Alfred Rios MD Unavailable Reason for Referral Consultation - Closed Specialty Diagnoses / Procedures Referred By Contact Refer red To Contact Diagnoses Lumbar radiculopathy DDD (degenerative disc disease), lumbar Facet arthritis of lumbar region Alfred Rios, [id number] (OP) [id number] [address] [employer] [address] [place] [address] [address] [place] [address] Phone: Fax: Referral ID Status Reason Start Date Expiration Date Visits Requ ested Visits Authorized [id number] Closed 05/08/2015 05/07/2016 1 1 ain Consult - Closed Specialty Diagnoses / Procedures Referred By Contact Refer red To Contact Diagnoses Lumbar radiculopathy DDD (degenerative disc disease), lumbar Facet arthritis of lumbar region Alfred Rios, [facility] [address] [address] [place] [address] [address] [place] [address] Phone: Fax: Referral ID Status Reason Start Date Expiration Date Visits Requ ested Visits Authorized [id number] Closed 05/08/2015 05/07/2016 1 1 Reason for Visit Reason Comments Follow Up angio and MRI results Encounter Details Date Type Department Care Team Description 05/08/[address] [facility] Alfred Rios Lumbar ra diculopathy (Primary Dx); Clinic Yvonne Peterson MD DDD (degenerative disc disease), lumbar; [place] [address] [address] Facet arthritis of lumbar region [address], [address] [place] [id number] Social History Tobacco Use Types Packs/Day Years [...] Sign Reading Time Taken Comments Blood Pressure 108/60 05/08/2015 3:55 PM CDT Pulse 62 05/08/2015 3:55 PM CDT Temperature 36.7 ??C (98.1 ??F) 05/08/2015 3:55 PM CDT Respiratory Rate 14 05/08/2015 3:55 PM CDT Oxygen Saturation 97% 05/08/2015 3:55 PM CDT Inhaled Oxygen Concentration - - Weight 75.8 kg (167 lb) 05/08/2015 3:55 PM CDT Height 167.6 cm (5' 6) 05/08/2015 3:55 PM CDT Body Mass Index 26.95 05/08/2015 3:55 PM CDT documented in this encounter Progress Notes Alfred Rios MD - 05/08/2015 7:22 AM CDT HPI SUBJECTIVE: Anthony Chun is a 65 year old male who presents to clinic today for the following health issues: Here to review MRI and sciatic pain. Can't sit for more than about 20, will wake him at night. Numbness into leg, feeling weak in leg feeling of leg giving. Does not believe he's ever had epidural injections done before. Is very concerned about recent failed angiography and need for CABG. Being considered for robotic techniques. Denies Cp, dypensa, edema, palpitations. Review of Systems Constitutional: Negative. Respiratory: Negative. Cardiovascular: Negative. Musculoskeletal: Positive for back pain. Neurological: Positive for sensory change and focal weakness. Physical Exam Constitutional: He is oriented to person, place, and time and well-developed, well-nourished, and inno distress. Eyes: Conjunctivae and EOM are normal. Cardiovascular: Normal rate, regular rhythm and normal heart sounds. Pulmonary/Chest: Effort normal and breath sounds normal. Musculoskeletal: He exhibits no edema. Neurological: He is alert and oriented to person, place, and time. Skin: Skin is warm and dry. Vitals reviewed. (M54.16) Lumbar radiculopathy (primary encounter diagnosis) Comment: reviewed MRI in detail. Will try to get in for epidural injections ahead of heart surgery. Plan: [facility] REFERRAL, methylPREDNISolone (MEDROL DOSEPAK) 4 MG tablet, NEUROSURGERY REFERRAL (M51.36) DDD (degenerative disc disease), lumbar Comment: Plan: [facility] REF[facility], methylPREDNISolone (MEDROL DOSEPAK) 4 MG tablet, NEUROSURGERY REFERRAL (M47.816) Facet arthritis of lumbar region Comment: Plan: [facility] REF[facility], methylPREDNISolone (MEDROL DOSEPAK) 4 MG tablet, NEUROSURGERY REFERRAL RTC in 1m Alfred Rios MD documented in this encounter Nursing Notes Gill Aragon, PARTS REPRESENTATIVE - 05/08/2015 4:00 PM CDT Chief Complaint Patient presents with ??? Follow Up For angio and MRI results Initial BP 108/60 mmHg Pulse 62 Temp(Src) 98.1 ??F (36.7 ??C) (Oral) Resp 14 Ht 5' 6 (1.676m) Wt 167 lb (75.751 kg) BMI 26.97 kg/m2 SpO2 97% Estimated body mass index is 26.97 kg/(m^2) as calculated from the following: Height as of this encounter: 5' 6 (1.676 m). Weight as of this encounter: 167 lb (75.751 kg). BP completed using cuff size: large Gill Aragon CMA documented in this encounter Plan of Treatment Scheduled Referrals Name Type Priority Associated Diagnoses Order S [facility] Referral Routine Lumbar ra diculopathy Ordered: 05/08/2015 ([facility]) REFERRAL DDD (degenerative dis c disease), lumbar Facet arthritis of lumbar region ([facility]) NEUROSURGERY REFERRAL Referral Routine Lumbar rad iculopathy Ordered: 05/08/2015 DDD (degenerative disc disease), lumbar Facet arthritis of lumbar region (H) documented as of this encounter Visit Diagnoses Diagnosis Lumbar radiculopathy - Primary Thoracic or lumbosacral neuritis or radi culitis, unspecified DDD (degenerative disc disease), lumbar Degeneration of lumbar or lumbosacral in tervertebral disc Facet arthritis of lumbar region Lumbosacral spondylosis without myelopat hy documented in this encounter Care Teams Scrap Materials Buyer Relationship Specialty Start Date End Date Alfred Rios MD PCP - General Family Practice 04/18/15 Alfred Rios MD PCP - Assigned PCP 03/22/15 09/13/18 [id number] [address] [id number] Alfred Rios MD Assigned PCP 03/22/15 06/01/20 [id number] [address] [id number] documented as of this encounter
--- OUTSIDE RECORDS SUMMARY | 2022-04-28 22:58 | XMS_ITS | Encounter Summary ---
:1950 Author Organization [place] Address [address] [facility] [place] [address] Care Team Providers Name Role Phone Alfred Rios MD Primary Care Provider [phone] Alfred Rios MD Unavailable Alfred Rios MD Unavailable Reason for Referral Consultation - Closed Specialty Diagnoses / Procedures Referred By Contact Refer red To Contact Diagnoses Coronary artery disease involving havasupai coronary artery of havasupai heart without angina pectoris Barbara Gonzalez PA-C [address] [place] [address]33 5 Referral ID Status Reason Start Date Expiration Date Visits Requ ested Visits Authorized [id number] Closed 05/13/2015 05/12/2016 1 1 Y ANALYST Reason for Visit Reason Comments Chest Pain Encounter Details Date Type Department Care Team Description 05/13/2015 Office Visit [facility] Cardiothoracic Fede Celis Coronary artery [address] [place] [address] havasupai coronary artery [phone] of havasupai heart without angina pectoris (Prima ry Dx) Social History Tobacco Use Types Packs/Day Years [...] Sign Reading Time Taken Comments Blood Pressure 118/64 05/13/2015 3:40 PM STORY ANALYST Pulse 66 05/13/2015 3:40 PM STORY ANALYST Temperature - - Respiratory Rate - - Oxygen Saturation - - Inhaled Oxygen Concentration - - Weight 76.2 kg (168 lb) 05/13/2015 3:40 PM STORY ANALYST Height - - Body Mass Index 27.12 05/13/2015 8:58 AM STORY ANALYST documented in this encounter Progress Notes Fede Celis MD - 05/13/2015 6:55 PM CST Cardiovascular Surgery Consultation Asked to see this patient in consultation for possible surgical treatment. Primary care physician isDr. Alfred Rios and account resolution expert is Dr. Damien Flowers. Chief Complaint: Mr. Chun is a very nice 65 YO male who presents to our clinic for further coronary artery follow up. He has no chest pain since starting his metoprolol. History is obtained from the patient History of Present Illness: This patient is a 65 year old male who is a pleasant 65-year-old gentleman with a strong family history of premature atherosclerotic disease and dyslipidemia who was referred to Cardiology because of an abnormal stress test. He has been having chest discomfort with exertion for the last 1 year. The patient underwent a stress test on 04/18/2015 at which time he was able to exercise for 10 minutes on the Rafael protocol achieving a workload of 11.7 METS. He developed [address] depressionat peak exercise and 1/10 chest discomfort in recovery. He had a cardiac catheterization and he was found to have a calcified distal left main and LAD stenosis. Mr. Chun has a distal left main and ostial LAD disease requiring coronary artery bypass surgery. He is asymptomatic from a cardiovascular standpoint. Past Medical History: I have reviewed this patient's past medical history Past Surgical History: I have reviewed this patient's past surgical history Social History: I have reviewed this patient's social history Family History: I have reviewed this patient's family history Immunizations: Immunizations are up to date Allergies: All allergies reviewed and addressed Medications: Current Outpatient Prescriptions Medication Sig Dispense Refill ??? methylPREDNISolone (MEDROL DOSEPAK) 4 MG tablet Follow package instructions 21 tablet 0 ??? nitroglycerin (NITROSTAT) 0.4 MG SL tablet One tablet under the tongue every 5 minutes if neededfor chest pain. May repeat every 5 minutes for a maximum of 3 doses in 15 minutes 25 tablet 3 ??? metoprolol (TOPROL-XL) 50 MG 24 hr tablet Take 1 tablet (50 mg) by mouth daily 30 tablet 3 ??? aspirin 81 MG tablet Take 1 tablet (81 mg) by mouth daily 30 tablet 12 ??? atorvastatin (LIPITOR) 40 MG tablet Take 1 tablet (40 mg) by mouth daily 30 tablet 12 ??? traMADol (ULTRAM) 50 MG tablet Take 1 tablet (50 mg) by mouth every 6 hours as needed for moderate pain 30 tablet 0 ??? hydrochlorothiazide (HYDRODIURIL) 25 MG tablet Take 25 mg by mouth daily Review of Systems: Gen: denies frequent headaches, double/blurry vision, insomnia, fatigue, unexplained weight loss/gain. No previous anesthesia reactions. CV: denies chest pain, shortness of breath, peripheral edema. Pulm: denies shortness of breath, asthma or wheezing GI/: denies liver or kidney problems, blood in stool or BRBPR, difficulty urinating Endo: denies thyroid problems or Diabetes Heme/Onc: denies bleeding or clotting disorders, no family problems with bleeding/clotting diorders MS: no weakness, tremors or gait instability Neuro: denies depression, memory problems, no dysesthesias, no previous strokes, no migraines, no dysphagia Skin: No petechiae, purpura or rash. Physical Exam: B/P: 118/64, P: 66, Wt Readings from Last 2 Encounters: 05/13/15 76.204 kg (168 lb) 05/13/15 74.844 kg (165 lb) General: NAD CV: s1/s2, no m/r/g Pulm: clear GI: s/nt/nd MS: moves all extremities x 4, 5+/5+ equal strength bilaterally Neuro: pupils equal round and reactive to light, cranial nerves, II-XII grossly intact, no gross neurologic deficits noted Data: NA 135 05/03/2015 CHLORIDE 102 05/03/2015 BUN 19 05/03/2015 POTASSIUM 3.4 05/06/2015 CO2 26 05/03/2015 CR 1.00 05/03/2015 Lab Results Component Value Date WBC 5.7 05/03/2015 HGB 15.6 05/03/2015 HCT 43.1 05/03/2015 MCV 89 05/03/2015 PLT 270 05/03/2015 Lab Results Component Value Date INR 0.95 05/06/2015 Assessment and Plan: 65 year old male who has multiple cardiac risk factors who presents with chest discomforts. Cardiac workup revealed tight proximal LAD stenosis. We recommend Robotic assisted CABG with RIVAS to LAD. Benefits and risks of surgery were explained to the patient and consent was obtained. Time spent with her was 45 minutes. Over half spent in counseling. >50% spent in discussing, counseling and coordinating ca Thank you for including me in the care of this kind patient. Do not hesitate to contact me with any questions. Dr. Fede Celis Cardiothoracic Surgery [phone] pager [phone] office Y ANALYST documented in this encounter Plan of Treatment Scheduled Referrals Name Type Priority Associated Diagnoses Order S [facility] VASCULAR SURGERY Referral Routine Coronary artery disease Ordered: 05/13/2015 REFERRAL involving havasupai coronary artery of havasupai heart without angina pectoris documented as of this encounter Results XR Chest 2 Views (05/13/2015 4:47 PM STORY ANALYST) Anatomical Region Laterality Modality Chest Computed Radiography Specimen (Source) Anatomical Location Collection Method / Collectio n Time Received Time / Laterality Volume Impressions 05/14/2015 9:10 AM STORY ANALYST IMPRESSION: No acute disease. KAISER SHORT MD Narrative 05/14/2015 9:10 AM STORY ANALYST CHEST TWO VIEWS 05/13/2015 4:47 PM HISTORY: Atherosclerotic heart disease o f havasupai coronary artery without angina pectoris. COMPARISON: None. FINDINGS: ??There are no acute infiltrat es. The cardiac silhouette is not enlarged. Pulmonary vasculature is u nremarkable. Procedure Note Kaiser Short MD - 05/14/2015Fo rmatting of this note might be different from the original. CHEST TWO VIEWS 05/13/2015 4:47 PM HISTORY: Atherosclerotic heart disease o f havasupai coronary artery without angina pectoris. COMPARISON: None. FINDINGS: There are no acute infiltrates . The cardiac silhouette is not enlarged. Pulmonary vasculature is u nremarkable. IMPRESSION IMPRESSION: No acute disease. KAISER SHORT MD Barbara Gonzalez PA-C [facility] ORDER NIRU documented in this encounter Visit Diagnoses Diagnosis Coronary artery disease involving havasupai coronary artery of havasupai heart without angina pectoris - Primary Coronary artery disease involving havasupai coronary artery of havasupai heart without angina pectoris documented in this encounter Care Teams Polisher Apprentice Relationship Specialty Start Date End Date Alfred Rios MD PCP - General Family Practice 04/18/15 Alfred Rios MD PCP - Assigned PCP 03/22/15 09/13/18 [id number] [address] [id number] Alfred Rios MD Assigned PCP 03/22/15 06/01/20 [id number] CARL LAWLER [id number] documented as of this encounter
--- OUTSIDE RECORDS SUMMARY | 2022-04-28 22:58 | XMS_ITS | Encounter Summary ---
:1950 Author Organization [place] Address [address] [facility] [place] [address] Care Team Providers Name Role Phone Alfred Rios MD Primary Care Provider [phone] Alfred Rios MD Unavailable Alfred Rios MD Unavailable Reason for Referral - Closed Specialty Diagnoses / Procedures Referred By Contact Refer red To Contact Diagnoses Abnormal cardiovascular stress test Alton Rm MD [facility] [address] [place] [id number] Referral ID Status Reason Start Date Expiration Date Visits Requ ested Visits Authorized [id number] Closed 05/07/2015 05/06/2016 1 1 Reason for Visit Reason Comments Hypertension Hyperlipidemia Results Treadmill 04/18/15 ordered fo r chest discomfort & SOB CV Cardio consult - Closed Specialty Diagnoses / Procedures Referred By Contact Refer red To Contact Diagnoses Cardiac ischemia Coronary artery disease involving inaja coronary artery with angina pectoris with documented spasm (H) Alfred Rios [facility] [address] [place] [id number] [facility] [address] [place] [address] [place] [address] Phone: [phone] Fax: Referral ID Status Reason Start Date Expiration Date Visits Requ ested Visits Authorized [id number] Closed 04/24/2015 04/23/2016 1 1 Encounter Details Date Type Department Care Team Description 04/30[facility]2015 [facility] [place] [address] [address] [address] Abnormal cardiovascular stress test (Deepa monico Dx); [facility] Clinic Alton Nunez MD [facility] [address] [place], [place] [id number] Hyperlipidemia LDL goal < 130; [address] [facility] HTN, goal below 140/90 [facility] [address] [place] [place] [address] Social History Tobacco Use Types Packs/Day [...] Sign Reading Time Taken Comments Blood Pressure 132/70 04/30/2015 2:51 PM CDT Pulse 70 04/30/2015 2:51 PM CDT Temperature - - Respiratory Rate - - Oxygen Saturation - - Inhaled Oxygen Concentration - - Weight 76.8 kg (169 lb 6.4 oz) 04/30/2015 2:51 PM CDT Height 167.6 cm (5' 6) 04/30/2015 2:51 PM CDT Body Mass Index 27.34 04/30/2015 2:51 PM CDT documented in this encounter Progress Notes Alton Rm MD - 04/30/2015 3:59 PM CDT HPI and Plan: See dictation Orders Placed This Encounter Procedures ??? Basic metabolic panel ??? CBC with platelets ??? Follow-Up with Brassiere Cup Mold Cutter ??? EKG 12-lead complete w/read - Clinics (performed today) Orders Placed This Encounter Medications ??? aspirin 81 MG tablet Sig: Take 1 tablet (81 mg) by mouth daily Dispense: 30 tablet Refill: 12 ??? atorvastatin (LIPITOR) 40 MG tablet Sig: Take 1 tablet (40 mg) by mouth daily Dispense: 30 tablet Refill: 12 Medications Discontinued During This Encounter Medication Reason ??? Meloxicam (MOBIC PO) Therapy completed ??? pravastatin (PRAVACHOL) 20 MG tablet Encounter Diagnoses Name Primary? ? ? Hyperlipidemia LDL goal < 130 ??? HTN, goal below 140/90 ??? Abnormal cardiovascular stress test Yes CURRENT MEDICATIONS: Current Outpatient Prescriptions Medication Sig Dispense Refill ??? aspirin 81 MG tablet Take 1 [...] tablet Take 25 mg by mouth daily ALLERGIES Allergies Allergen Reactions ??? Nickel Rash PAST MEDICAL HISTORY: Past Medical History Diagnosis Date ??? Hypertension ??? Hyperlipidemia PAST SURGICAL HISTORY: Past Surgical History Procedure Laterality Date ??? Rotator cuff repair rt/lt Right 2009 ??? Arthroscopy knee rt/lt Bilateral 1989 ??? Achilles release Left 2009 ??? Septoplasty 1977 ??? Vasectomy 1980 FAMILY HISTORY: Family History Problem Relation Age [...] Main Topics ??? Smoking status: Former Smoker Quit date: 10/22/1999 ??? Smokeless tobacco: Never Used ??? Alcohol Use: 0.0 oz/week 0 Not specified per week Comment: 1-2 beers daily ??? Drug Use: No ??? Sexual Activity: No Other Topics Concern ??? Special Diet No ??? Exercise No Social History Narrative Review of Systems: Skin: Positive for rash forehead Eyes: Positive for glasses ENT: Positive for hearing loss right ear Respiratory: Positive for shortness of breath;wheezing wheezing rarely Cardiovascular: Positive for;dizziness intermittently when getting out of bed, feels like he's goingto lose his balance Gastroenterology: Negative Genitourinary: Negative Musculoskeletal: Positive for back pain low back, hips Neurologic: Negative Psychiatric: Positive for sleep disturbances sleep issue r/t pain in leg per patient Heme/Lymph/Imm: not assessed Endocrine: Negative Physical Exam: Vitals: BP 132/70 mmHg Pulse 70 Ht 1.676 m (5' 6) Wt 76.839 kg (169 lb 6.4 oz) BMI 27.35 kg/m2 Constitutional: alert and oriented;well developed;well nourished Skin: warm and dry to the touch Head: normocephalic Eyes: sclera white ENT: no pallor or cyanosis;dentition good Neck: not assessed this visit Chest: clear to auscultation Cardiac: regular rhythm;normal S1 and S2 Abdomen: abdomen soft Vascular: pulses full and equal Extremities and Back: no edema Neurological: no gross motor deficits;affect appropriate CC Alfred Rios MD [facility] [address] [place] [address] Alton Rm MD - 04/30/2015 3:59 PM CDT REQUESTING PROVIDER: Alfred Rios MD INDICATION: Abnormal stress test. HISTORY OF PRESENT ILLNESS: Mr. Billingsley is a pleasant 65-year-old gentleman with a strong family history of premature atherosclerotic disease and dyslipidemia who was referred to Cardiology because of anabnormal stress test. He underwent a stress test through his family doctor because of chest pain over the last 1 year. The patient has been developing chest pain with exertion that typically lasts anywhere from 30 seconds to several minutes and was associated with shortness of breath. He stops and rests and the pain resolves. He then goes on with his activity and no longer has discomfort. However, hehas noticed episodes of dyspnea with exertion, independent of the chest discomfort which has signific antly worsened over the last 6-12 months. The patient underwent an exercise stress test on 04/18/2015 at which time he was able to exercise for 10 minutes on the Rafael protocol, achieving a workload of 11.7 METS. The patient developed 2 mm of inferolateral horizontal ST depression at peak exercise and 1/10 chest discomfort in the recovery period. The patient has been diagnosed with mild chronic kidney disease with a creatinine of 1.34 with a corresponding GFR of 53. I do not have a prior basic metabolic panel to compare this to. He has been on pravastatin long-term for hyperlipidemia. He previously was on atorvastatin but thinks he may have had myalgias. He has been on the pravastatin in excess of greater than 10 years. Please see my separate note with a full list of the patient's allergies, medications, past medical history, social history, family history and review of systems. Please see my separate note with his full physical examination. IMPRESSION AND PLAN: 1. Abnormal stress test and chest discomfort - Mr. Billingsley has chest discomfort and dyspnea with exertion that is concerning for cardiac ischemia. Especially in light of his abnormal stress test which suggests cardiac ischemia, I suspect the patient's symptoms are related to obstructive coronary artery disease. At this time, I have recommended a cardiac catheterization and informed consent was obtainedafter explaining the risks and benefits of the procedure with the patient who is in agreement. I am going to place him on aspirin 81 mg a day and replace his pravastatin with atorvastatin 40 mg daily. The patient is to contact me if he does not tolerate atorvastatin due to myalgias in which case I will cut the dose in half. I will obtain a pre-Cath BMP to make sure his GFR is stable given the recent abnormal creatinine. 2. Hypertension - the patient was just recently started on hydrochlorothiazide. I will continue thisunchanged. I do not want to start another antihypertensive so close to when his hydrochlorothiazide was initiated and therefore I have held off on adding a beta brisa at this time. At catheterization, if he is found to have coronary disease, I suspect it may be reasonable to add low-dose metoprolol succinate. 3. Dyslipidemia - as detailed above. I am replacing his pravastatin with atorvastatin 40 mg daily. I will plan to see Mr. Billingsley back in close clinical followup after his cardiac catheterization. ALTON RM MD MT: [facility] Name: RUSSEL BILLINGSLEY Account: [id number] : 1950 Service Date: 04/30/2015 Document: [id number] documented in this encounter Plan of Treatment Scheduled Referrals Name Type Priority Associated Diagnoses Order S chedule Follow-Up with Referral Routine Abnormal cardiovascular Ex pected: Brassiere Cup Mold Cutter stress test 05/07/2015 (Approximate), Expires: 2015 documented as of this encounter Procedures Procedure Name Priority Date/Time Associated Diagnosis Comme nts EKG 12-LEAD COMPLETE Routine 04/30/2015 Results for this W/READ - CLINICS procedure a re in the results section . documented in this encounter Results CBC with platelets (05/03/2015 11:08 AM CDT) athologist Signature WBC 5.7 4.0 - 11.[address] RBC Count 4.84 4.4 - 5.9 [place] [id number] Hemoglobin 15.6 13.3 - [place] 17.7 g/dL [facility] Hematocrit 43.1 40.0 - [place] 53.0 % [facility] MCV 89 78 - 100 [facility] MCH 32.2 26.5 - [place] 33.0 pg [facility] MCHC 36.2 31.5 - [place] 36.5 g/dL [facility] RDW 12.9 10.0 - [place] 15.0 [facility] Platelet Count 270 150 - [address] Specimen Anatomical Collection Method Collection Time Receive d Time (Source) Location / / Volume Laterality Blood specimen 05/03/2015 11:08 5 (specimen) AM CDT 11:13 AM CDT Alton Rm MD LAB - BLOOD ORDERABLES Performing Organization Address City/State/ZIP Code Phon e Number [place] [address] [address] [place] [address] [facility] [address] [place] [address] 7, [facility] [phone] (ABNORMAL) Basic metabolic panel (05/03/2015 11:08 AM CDT) athologist Signature Sodium 135 133 - 144 [place] mmol/L [facility] Potassium 3.4 3.4 - 5.3 [place] mmol/L [facility] Chloride 102 94 - 109 [place] mmol/L [facility] Carbon Dioxide 26 20 - 32 [place] mmol/L [facility] Anion Gap 7 3 - 14 [place] mmol/L [facility] Glucose 102 (H) 70 - 99 [place] mg/dL [facility] Urea Nitrogen 19 7 - 30 [place] mg/dL [facility] Creatinine 1.00 0.66 - [place] 1.25 mg/dL [facility] GFR Estimate 75 >60 [place] mL/min/1.[address] Comment: Non GFR Calc GFR Estimate If Black >90 >60 mL/min/1.7m2 F [facility] GFR Calc HOSP ITAL Calcium 9.3 8.5 - 10.1 mg/dL [facility] Specimen Anatomical Collection Method Collection Time Receive d Time (Source) Location / / Volume Laterality Blood specimen 05/03/2015 11:08 5 (specimen) AM CDT 11:13 AM CDT Alton Rm MD LAB - BLOOD ORDERABLES Performing Organization Address City/State/ZIP Code Phon e Number [place] [address] [address] [place] [address] [place] [address] [phone] EKG 12-lead complete w/read - Clinics (performed today) (04/30/2015) Narrative This result has an attachment that is no t available. Alton Rm MD ECG ORDERABLES documented in this encounter Visit Diagnoses Diagnosis Abnormal cardiovascular stress test - Pr imary Other nonspecific abnormal cardiovascula r system function study Hyperlipidemia LDL goal < 130 Other and unspecified hyperlipidemia HTN, goal below 140/90 Unspecified essential hypertension documented in this encounter Care Teams Cloth Finisher Relationship Specialty Start Date End Date Alfred Rios MD PCP - General Family Practice 04/18/15 Alfred Rios MD PCP - Assigned PCP 03/22/15 09/13/18 [address] [address] [address] Alfred Rios MD Assigned PCP 03/22/15 06/01/20 [address] [address] [id number] documented as of this encounter
--- OUTSIDE RECORDS SUMMARY | 2022-04-28 22:58 | XMS_ITS | Encounter Summary ---
:1950 Author Organization [place] Address [facility] [place] [address] Care Team Providers Name Role Phone Alfred Rios MD Primary Care Provider [phone] Alfred Rios MD Unavailable Alfred Rios MD Unavailable Encounter Details Date Type Department Care Team Description 05/20/2015 Documentation Only [facility] Martina Szymasnki, [address] [place] [address] Social History Tobacco Use Types Packs/Day Years Used Date Smoking Tobacco: Former Cigarettes 1 35 Quit : 10/22/1999 Smokeless Tobacco: Never Alcohol Use Standard Drinks/Week Comments Yes 0 (1 standard drink = 0.6 oz pure alcoho l) 1-2 beers daily Sex Assigned at Date Recorded Male 12/31/2020 1:31 PM CDT documented as of this encounter Progress Notes Martina Szymanski LPN - 05/20/2015 10:39 AM CST Pt is scheduled for Robotic CAB on 04/21/15 w/ Dr Celis. KROOM COORDINATOR documented in this encounter Plan of Treatment Not on filedocumented as of this encounter Visit Diagnoses Not on filedocumented in this encounter Care Teams Slate Trimmer Relationship Specialty Start Date End Date Alfred Rios MD PCP - General Family Practice 04/18/15 Alfred Rios MD PCP - Assigned PCP 03/22/15 09/13/18 [address] [address] [id number] Alfred Rios MD Assigned PCP 03/22/15 06/01/20 [address] [address] [id number] documented as of this encounter
--- OUTSIDE RECORDS SUMMARY | 2022-04-28 22:58 | XMS_ITS | Encounter Summary ---
:1950 Author Organization [place] Address [address] [facility] [place] [address] Care Team Providers Name Role Phone Alfred Rios MD Primary Care Provider [phone] Alfred Rios MD Unavailable Alfred Rios MD Unavailable Reason for Visit (Routine) - Closed Specialty Diagnoses / Procedures Referred By Contact Refer red To Contact Radiology / Diagnoses Epic, sb pt MRI safe, non claustrophobic pt wt 170 no surgery Rh Mri cc Radiology[place] [address] [email or web address] [address] [place] [address] Phone: Fax: Referral ID Status Reason Start Date Expiration Date Visits Requ ested Visits Authorized [id number] Closed 04/30/2015 04/29/2016 1 1 Encounter Details Date Type Department Care Team Description 05/02/2015 Hospital Encounter [facility] Alfred Rios [facility] radiculopathy [facility] MD [place] [address] [facility] [address] [facility] [address] [place], [place] [address] [phone] Social History Tobacco Use Types Packs/Day Years [...] moderate pain documented as of this encounter Plan of Treatment Not on filedocumented as of this encounter Procedures Procedure Name Priority Date/Time Associated Diagnosis Comme nts MR LUMBAR SPINE W/O Routine 05/02/2015 5:00 PM Lumbar radiculo marcus Results for this CONTRAST CDT procedure are i n the results section. documented in this encounter Results MR Lumbar Spine w/o [...] mild right foraminal s tenosis at L5-S1. MAGNO ORNELAS MD Narrative 05/03/2015 2:49 PM CDT MRI [...] stenosis. Paraspinous soft tissues: Unremarkable. Procedure Note Magno Ornelas MD - 05/03/2015Formattin g of this note [...] mild right foraminal s tenosis at L5-S1. MAGNO ORNELAS MD Alfred Rios MD IMG MRI ORDERABLES documented in this encounter Visit Diagnoses Diagnosis Lumbar radiculopathy Thoracic or lumbosacral neuritis or radi culitis, unspecified documented in this encounter Care Teams Cork Insulator Relationship Specialty Start Date End Date Alfred Rios MD PCP - General Family Practice 04/18/15 Alfred Rios MD PCP - Assigned PCP 03/22/15 09/13/18 [address] [place] [address] Alfred Rios MD Assigned PCP 03/22/15 06/01/20 [address] [address] [address] documented as of this encounter
--- OUTSIDE RECORDS SUMMARY | 2022-04-28 22:58 | XMS_ITS | Encounter Summary ---
:1950 Author Organization [place] Address [address] [place] [address] Care Team Providers Name Role Phone Alfred Rios MD Primary Care Provider [phone] Alfred Rios MD Unavailable Alfred Rios MD Unavailable Reason for Visit Reason Comments Consult carotids Consultation - Closed Specialty Diagnoses / Procedures Referred By Contact Refer red To Contact Diagnoses Coronary artery disease involving levelock coronary artery of levelock heart without angina pectoris Barbara Gonzalez PA-C [address] [place], [place] [address] Referral ID Status Reason Start Date Expiration Date Visits Requ ested Visits Authorized [id number] Closed 05/13/2015 05/12/2016 1 1 Encounter Details Date Type Department Care Team Description 05/15/2015 Office Visit [facility] Barbara Gonzalez PA-C [address] [place] [address] Coronary artery disease involving levelock coronary artery of levelock heart without angina pectoris (Primary Dx); Vascular Clinic Murali Christian MD [address] [place] [address] Carotid stenosis, asymptomatic, right [address] [place] [address] Social History Tobacco Use Types Packs/Day Years [...] Sign Reading Time Taken Comments Blood Pressure 116/68 05/15/2015 10:51 AM SUBWAY TRAIN OPERATOR right ar m Pulse 68 05/15/2015 10:49 AM SUBWAY TRAIN OPERATOR Temperature - - Respiratory Rate - - Oxygen Saturation - - Inhaled Oxygen Concentration - - Weight - - Height - - Body Mass Index - - documented in this encounter Progress Notes Murali Cadet MD - 05/17/2015 5:45 AM CST May 15, 2015 Fede Celis MD [facility] [address] [facility], [facility] [address] [place], [place] [address] Celis: I saw your patient, Mr. Pipo Billingsley in the [facility]. He is a healthy 65-year-old gentleman scheduled to undergo a da Anahi coronary artery bypass grafting in the near future. He has a familial history of carotid disease and underwent carotid ultrasonography, showing moderate right-sided disease. He is sent to me for vascular evaluation. He has no personal history of stroke or TIA. Both his mother and a brother have previously suffered a stroke. 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 He hasa history of hypertension and hyperlipidemia and is a former smoker with a 49-[id number]-[id number] history, buthe did quit smoking in 1999. He has other issues with chronic back pain and some joint conditions, but for the most part remains a very functional individual. On exam today, he is fit-appearing and in no acute distress. Blood pressure was 112/62 with a pulse of 68. His neurologic exam is entirely nonfocal. He has intact pedal pulses. The remainder of his physical examination was grossly within normal limits. I have reviewed his carotid ultrasound from 05/06/2015. On the right side, peak systolic velocity was 267 with an end-diastolic velocity of 93. His ICA to CCA ratio was 2.6 and there was antegrade flowin the right vertebral artery. On the left side he had minimal disease, again with antegrade flow inthe left vertebral artery. IMPRESSION: A 65-year-old gentleman with asymptomatic and moderate right carotid stenosis, not yet in need of intervention. RECOMMENDATION: I have had a nice discussion with Pipo, reviewing all of the above. We discussed thenatural history of asymptomatic carotid disease. Were it not for his family history, I would not even give his present level of stenosis another thought. While it is over 70% by velocity it is in the 50-69% range by ratio, and I am confident that if we were to image this with CT angiography this wouldbe an unimpressive lesion. From my standpoint, he is cleared for any cardiac procedure and he does not require preoperative carotid endarterectomy. He should continue his medical regimen and of course will remain on an antiplatelet drug post-CABG. I will see him back again in 1 year for repeat bilateral carotid ultrasonography. I appreciate the opportunity to participate in this pleasant gentleman's care. Please feel free to contact me should you have questions or concerns. Sincerely, MURALI CADET MD [place]: [facility] Name: RUSSEL BILLINGSLEY MRN: [id number] Account: [id number] : 1950 Visit Date: 05/15/2015 Document: [id number] cc: Fede Rios MD HPI ROS Physical Exam AY TRAIN OPERATOR Murali Cadet MD - 05/17/2015 5:33 AM CST HPI See dictation. Review of Systems Constitutional: Negative. HENT: Negative. Eyes: Negative. Respiratory: Negative. Cardiovascular: Negative. Gastrointestinal: Negative. Genitourinary: Negative. Musculoskeletal: Positive for back pain and joint pain. Skin: Negative. Neurological: Negative. Endo/Heme/Allergies: Negative. Psychiatric/Behavioral: Negative. Physical Exam Nursing note and vitals reviewed. Constitutional: He appears well-developed and well-nourished. Eyes: EOM are normal. Pupils are equal, round, and reactive to light. HENT: Head: Normocephalic and atraumatic. Neck: Normal range of motion. Neck supple. No JVD present. Cardiovascular: Intact distal pulses. Musculoskeletal: Normal range of motion. He exhibits no edema. Lymphadenopathy: He has no cervical adenopathy. Neurological: He is alert and oriented to person, place, and time. Skin: Skin is warm and dry. Psychiatric/Behavioral: mood and affect normal, normal behavior, normal thought content and normal judgment Please route or send letter to: Primary Care Provider (PCP) and Referring Provider AY TRAIN OPERATOR documented in this encounter Nursing Notes Dagmar Torres MA - 05/15/2015 10:52 AM CST Chief Complaint Patient presents with ??? Consult carotids Initial BP 116/68 mmHg Pulse 68 Estimated body mass index is 27.13 kg/(m^2) as calculated from thefollowing: Height as of 05/13/15: 5' 6 (1.676 m). Weight as of 05/13/15: 168 lb (76.204 kg). BP completed using cuff size: large Face to face nursing time: 10 minutes Dagmar Torres MA Ebola Screen Negative AY TRAIN OPERATOR documented in this encounter Plan of Treatment Scheduled Referrals Name Type Priority Associated Diagnoses Order S [facility] VASCULAR SURGERY Referral Routine Coronary artery disease Ordered: 05/13/2015 REFERRAL involving levelock coronary artery of levelock heart without angina pectoris documented as of this encounter Visit Diagnoses Diagnosis Coronary artery disease involving levelock coronary artery of levelock heart without angina pectoris - Primary Carotid stenosis, asymptomatic, right documented in this encounter Care Teams Assistant Case Manager Relationship Specialty Start Date End Date Alfred Rios MD PCP - General Family Practice 04/18/15 Alfred Rios MD PCP - Assigned PCP 03/22/15 09/13/18 [address] [place] [address] Alfred Rios MD Assigned PCP 03/22/15 06/01/20 [address] [address] [id number] documented as of this encounter
--- OUTSIDE RECORDS SUMMARY | 2022-04-28 22:58 | XMS_ITS | Encounter Summary ---
:1950 Author Organization [facility] Address [address] [place] [address] Care Team Providers Name Role Phone Alfred Rios MD Primary Care Provider [phone] Alfred Rios MD Unavailable Alfred Rios MD Unavailable Reason for Visit Auth/Cert - Closed Specialty Diagnoses / Procedures Referred By Contact Refer red To Contact Surgery Diagnoses cad Sh Periop Services Procedures DAVINCI BYPASS ARTERY CORONARY [address], [address] [place] [address] Phone: Referral ID Status Reason Start Date Expiration Date Visits Requ ested Visits Authorized [id number] Closed 1 1 Encounter Details Date Type Department Care Team Description 05/22/2015 Anesthesia Event M [facility] Sterling West MD [place] [facility] Services [address] [place] [address] [address] [place] [address] Anesthesia Record Procedure Summary Procedure Name Responsible Anesthesia Start Anesthesia Stop Time Anesthesiologist Time ROBOTIC CORONARY Shaun West MD 05/22/15 0718 05/12 07/26 1225 ARTERY BYPASS (RIVAS TO LAD) (OFF PUMP) (Heart) Events Date Time Event Comment 05/22/2015 0612 0718 An Start 0718 An Start Data 0718 MD Present 0724 An Induction 0740 An Intubation 0740 AN Start Iso Billing 0743 MD Present I was present fr om room entry until now 0752 Quick Note Per surgeon no a micar for this case. 0756 MD Present 0800 Quick Note PH=7.39 PCO2=51. 6 MV7=288 HCO3=31.4 HM0=185% Qq=018 K=3.5 HCT =37 HGB=12.6 PWO=484 0818 An one lung vent 0819 AN INCISION 0825 MD Present 0855 Quick Note PH=7.363 PCO2=45 MU4=483 BE= HCO3=25.6 SO2=98 Wl=156 K=3.7 HCT =37 HGB=12.6 0856 MD Present 0925 MD Present 1002 Quick Note PH=7.412 PCO2=42 .5 PO2=98 HCO3=27.1 SO2=98 ZMD=678 1011 MD Present 1015 Quick Note IUS=012 1032 MD Present 1042 Quick Note PH=7.378 PCO2=45 .8 VZ2=316 BE= HCO3=27.0 SO2=98 Gu=902 K= 3.7 HCT=40 HGB=13.6 VQA=621 1104 MD Present 1106 MD Present 1108 An Two-Lung Vent 1115 Quick Note EJK=912 1129 MD Present 1148 MD Present 1153 an madina now 1153 Quick Note DL ETT removed, reintubated with single lumen 8.0 ETT using gl idescope. 1203 AN End Iso Billing 1205 an stop data 1205 Quick Note Pt to ICU, ETT i n place, ambu with 10 L O2 for transport, monit ors in place. Placed on vent in ICU per RT, Vt 6 00 mL, rate 10, peep 5 Report given to RN, VSS . 1225 An Stop Electronically s igned by Micki Conrad on May 22 12:25 PM 1743 MD Present Name Total dexmedetomidine (PRECEDEX) drip 100mcg/mL 77.47 mcg fentanyl 50mcg/mL 250 mcg HEParin 1000 unit/mL 17,000 Units midazolam 1mg/mL 5 mg phenylephrine 0.1mg/mL 500 mcg propofol 10mg/mL 250 mg rocuronium 10mg/mL 50 mg SUFentanil 50mcg/mL 80 mcg vecuronium 1mg/mL 11 mg ceFAZolin (ANCEF) intermittent infusion 2 g (pre-mix) 4 g sodium chloride 0.9% 600 mL LR 700 mL LR PIV #1 500 mL albumin 5% 500 mL Agents Name O2 Air Exp Isoflurane Ins Isoflurane Blood No blood administrations on file. Lines, Drains, and Airways Type Details Placement Removal Peripheral IV 05/22/15; 0625; 16 G; 05/22/15 0625 by 05/25/15 1009 by Right; Lower forearm; Rafael Aguilar Angela L, Chlorhexidine; JAGDEEP Ordonez RN Injectable; Tolerated well Arterial Line 05/22/15; 0645; Left; 05/22/15 0645 by 05/23/15 0445 by Radial; Chlorhexidine; Maddison Aguilar Debra R, Injectable; REYNA Ordonez RN RN Divide; 1; Taped; Tolerated well; 05/23/15; 0445; No longer indicated Introducer 05/22/15; 0656; 05/22/15 0656 by 05/23/15 0430 b y Internal jugular; Maddison Aguilar Deb ra R, Right; REYNA Divide; JAGDEEP Ordonez RN 05/23/15; 0430 Pulmonary Artery 05/22/15; 0705; 05/22/15 0705 by 05/23/15 0430 by Catheter Assessment - 05/23/15; 0430 Shaun eWst D ebra R, Single Lumen MD JAGDEEP Tee Urethral Catheter 05/22/15; 0730; No; 05/22/15 0730 by 05/24/15 0800 by Anesthesia; 16 fr Melissa Madrigal Ranzau, An gela L RN RN RETIRED ETT 05/22/15; 0740; Mask 05/22/15 0740 by 05/22/15 1 630 by Ventilation: Easy; Micki Conrad APRN Weiers, Lauren Ease of Intubation: Kasey Triplett Difficult (Pt slightly anterior, DLX2 with Ruiz #2, unable to pass 37 double lumen tube with Ruiz, switched to glidescope and able to pass to 39 double lumen tube.); Airway Size: 39; Cuffed; DL tube; Blade Type: Glidescope; Blade Size: 4; Place by: MDA; Insertion Attempts: 2; Breath Sounds: Equal, clear and bilateral; End Tidal CO2: Present; Dentition: Intact; Grade View of Cords: 1; Airway Adjuncts: Lyme scope Chest Tube 05/22/15; 1126; Left; 05/22/15 1126 by 05/23/15 1543 by Pleural; 28 Bran Suero Chanel Henry, PJ Christianson Incision/Surgical Site 05/22/15; 1138; Left; 05/22/15 1138 by 0000 by Chest; main incision, Melissa Madrigal Grimes, Amy J, JAGDEEP plus port site; RN 02/10/22 (not present) RETIRED ETT 05/22/15; 1200; Mask 05/22/15 1200 by 05/22/15 1 630 by Ventilation: Easy; Micki Conrad, Dewayne Vasquez, RT Ease of Intubation: REINSTATEMENT CLERK Easy; Airway Size: 8; Cuffed; Oral; Blade Type: Glidescope; Blade Size: 4; Place by: kb srna; Insertion Attempts: 1; Secured at (cm)to lip: 24 cm; Breath Sounds: Equal, clear and bilateral; End Tidal CO2: Present; Dentition: Intact; Airway Adjuncts: Lyme scope documented in this encounter Social History Tobacco Use Types Packs/Day Years Used Date Smoking Tobacco: Former Cigarettes 1 35 Quit : 10/22/1999 Smokeless Tobacco: Never Alcohol Use Standard Drinks/Week Comments Yes 0 (1 standard drink = 0.6 oz pure alcoho l) 1-2 beers daily Sex Assigned at Date Recorded Male 12/31/2020 1:31 PM CDT documented as of this encounter OR Notes Anesthesia Postprocedure Evaluation - Shaun West MD - 05/22/2015 5:43 PM CST Patient: Anthony SUMNER BYPASS ARTERY CORONARY (N/A Heart) Additional InformationProcedure(s): ROBOTIC CORONARY ARTERY BYPASS (RIVAS TO LAD) (OFF PUMP) Diagnosis:cad Diagnosis Additional Information: No value filed. Anesthesia Type: General, ETT Note: Anesthesia Post Evaluation Patient location during evaluation: ICU (sedated/intubated) Post op Mental Status: sedated/intubated. Post-procedure mental status: sedated/intubated. Pain management: adequate Airway patency: ETT. Anesthetic complications: no Cardiovascular status: acceptable Respiratory status: acceptable Hydration status: acceptable Comments: Transferred to ICU intubated and sedated on Precedex. Hemodynamically stable. Anticipate rapid extubation. Discussed with SENIOR SCIENCE CONSULTANT and flat sheet maker. PONV: none Last vitals: Filed Vitals: 05/22/15 1700 05/22/15 1715 05/22/15 1730 BP: Temp: 36.9 ??C (98.4 ??F) 36.9 ??C (98.4 ??F) 37 ??C (98.6 ??F) Resp: 06 29 13 SpO2: 99% 99% 99% Electronically Signed By: Shaun West MD, MD May 22, 2015 5:43 PM OL COMMUNITY SERVICE OFFICER Anesthesia Procedure Notes - Shaun West MD - 05/22/2015 9:12 AM [employer] COMM[employer]ITY SERVICE OFFICER Associated Order(s): ANE A LINE CATHETER PLACEMENT; ANE CENTRAL LINE CATHETER PROCEDURE ARTERIAL LINE PROCEDURE NOTE: Pre-Procedure Performed by SHAUN WEST Location: pre-op Pre-Anesthestic Checklist: patient identified, IV checked, risks and benefits discussed and informedconsent Timeout Correct Patient: Yes Correct Procedure: Yes Correct Site: Yes Correct Laterality: N/A Correct Position: Yes Site Marked: N/A . Procedure Documentation Procedure: arterial line Supine Insertion Site:left, radial.Skin infiltrated with mL of 1% lidocaine. Injection technique: SeldingerTechnique . . Patient Prep;chlorhexidine gluconate and isopropyl alcohol, patient draped Assessment/Narrative Complications: hematoma Catheter: 20 gauge, 12 cm Secured by other Tegaderm dressing used. Arterial waveform: Yes Comments: Arterial Line. Initial attempt unable to thread catheter. Small hematoma. CENTRAL LINE INSERTION PROCEDURE NOTE: Pre-Procedure Performed by SHAUN WEST Location: OR Pre-Anesthestic Checklist: patient identified, risks and benefits discussed and informed consent Timeout Correct Patient: Yes Correct Procedure: Yes Correct Site: Yes Correct Laterality: N/A Correct Position: Yes Site Marked: N/A . Procedure Documentation Procedure: central line and new line (Introducer and PA Catheter) Position: Trendelenburg Patient Prep;all elements of maximal sterile barrier technique followed, mask, hat, sterile gown, sterile gloves, draped, hand hygiene, chlorhexidine gluconate and isopropyl alcohol, patient draped Insertion Site:right, internal jugular Using U/S with sterile probe cover and sterile gel, vein evaluated for patency/adequacy of cortis insertion is adequate, and using realtime U/S imaging the charlie was punctured, and needle was observed entering vein on U/S. A permanent image is entered into the patient's record. Skin infiltrated with 5 mL of 1% lidocaine. Catheter: PA Catheter, 8.5 Fr (Sheath Introducer) Assessment/Narrative Catheter: PA Catheter, 8.5 Fr (Sheath Introducer) Secured by suture Tegaderm and Biopatch dressing used. blood aspirated from all lumens All lumens flushed: Yes Verification method: Placement to be verified post-op Comments: PA Catheter No complications OL COMMUNITY SERVICE OFFICER Anesthesia Preprocedure Evaluation - Shaun West MD - 05/22/2015 6:09 AM CST Anesthesia Evaluation . Pt has had prior anesthetic. Type: General No history of anesthetic complications ROS/MED HX ENT/Pulmonary: (+)tobacco use, Past use 35 pk/yr quit 2000 packs/day , . . (-) asthma, COPD, sleep apnea and recent URI Neurologic: - neg neurologic ROS Cardiovascular: Comment: Carotid u/s with >70% stenosis on right, less than 50% on left. Interpretation Summary The left ventricle is normal in size. Left ventricular systolic function is normal. The visual ejection fraction is estimated at 55-60%. The right ventricle is normal size. The right ventricular systolic function is normal. The left atrium is mildly dilated. The IVC is normal in size and reactivity with respiration, suggesting normal central venous pressure. CONCLUSION: 1. Codominant system. 2. Critical ostial LAD lesion in a calcified left main ostial LAD. I think we [...] coronary artery. The right coronary artery is only moderate. This lesion may be approachable by percutaneous intervention but my concern is that the left main artery is calcified at the exact takeoff of the ostial LAD and the ostial LAD is calcified, therefore may have to be debulked with Rotablator [...] the interim, his statin was just increased and he was placed on HCTZ. I am going to add Toprol 50 mg daily to his current medications while he is awaiting surgical consult and sublingual nitroglycerin. There are no complications. (+) Dyslipidemia, hypertension CAD, . : . . . :. . (-) CHF, arrhythmias and irregular heartbeat/palpitations METS/Exercise Tolerance: >4 METS Hematologic: - neg hematologic ROS Musculoskeletal: Comment: Low back pain, finished steroid taper 1 week ago GI/Hepatic: - neg GI/hepatic ROS Renal/Genitourinary: (-) renal disease Endo: (-) Type II DM Psychiatric: - neg psychiatric ROS Infectious Disease: Malignancy: Other: Physical Exam Normal systems: dental Airway Mallampati: II TM distance: <3 FB Neck ROM: full Dental Cardiovascular Rhythm and rate: regular and normal Pulmonary breath sounds clear to auscultation Anesthesia Plan ASA Score: 3 . Plan for General and ETT - with Intravenous and Propofol induction. Maintenance will be Balanced. Anesthetic plan, risks, benefits and alternatives discussed with: patient or c s s representative. Possibility of blood products discussed.Routine analgesia and antiemetics Plan for postoperative opioid use to be used for post-operative care . Equipment:Videolaryngoscope, Arterial Line, Central Line, JAYDEN, Pulmonary Artery Catheter and CVP History & Physical Review History and physical reviewed and following examination; no interval change. . OL COMMUNITY SERVICE OFFICER documented in this encounter Miscellaneous Notes Anesthesia Care Transfer Note - Micki Conrad APRN CRNA - 05/22/2015 12:25 PM CST Patient: Anthony SUMNER BYPASS ARTERY CORONARY (N/A Heart) Additional Information@[email or web address]@ Diagnosis: cad Diagnosis Additional Information: No value filed. Anesthesia Type: General, ETT Note: Airway :ETT Patient transferred to:ICU Electronically Signed By: iMcki Conrad APRN CRNA May 22, 2015 12:25 PM OL COMMUNITY SERVICE OFFICER documented in this encounter Plan of Treatment Not on filedocumented as of this encounter Procedures Procedure Name Priority Date/Time Associated Diagnosis Comme nts ANE A LINE CATHETER Routine 05/22/2015 5:43 PM Re sults for this PLACEMENT PATROL COMMUNITY SERVICE OFFICER procedure are i n the results section. documented in this encounter Results Central line catheter placement (05/22/2015 5:43 PM PATROL COMMUNITY SERVICE OFFICER) Narrative Shaun West MD - 05/22/2015 5:43 PM [employer]ROL COMMUNITY SERVICE OFFICER Shaun West MD ? 05/22/2015 ??5:43 PM ARTERIAL LINE PROCEDURE NOTE: Pre-Procedure Performed by SHAUN WEST Location: pre-op ?? Pre-Anesthestic Checklist: patient ident ified, IV checked, risks and benefits discussed and informed cons ent ?? Timeout Correct Patient: Yes Correct Procedure: Yes Correct Site: Yes Correct Laterality: N/A Correct Position: Yes Site Marked: N/A . Procedure Documentation Procedure: arterial line Supine Insertion Site:left, radial.Skin infiltr ated with mL of 1% lidocaine. Injection technique: Seldinge r Technique ??. ??. ?? Patient Prep;chlorhexidine gluconate and isopropyl alcohol, patient draped Assessment/Narrative Complications: hematoma Catheter: 20 gauge, 12 cm Secured by other Tegaderm dressing used. Arterial waveform: Yes Comments: ??Arterial Line. ??Initial att empt unable to thread catheter. ??Small hematoma. ?? CENTRAL LINE INSERTION PROCEDURE NOTE: Pre-Procedure Performed by SHAUN WEST Location: OR ?? Pre-Anesthestic Checklist: patient ident ified, risks and benefits discussed and informed consent ?? Timeout Correct Patient: Yes Correct Procedure: Yes Correct Site: Yes Correct Laterality: N/A Correct Position: Yes Site Marked: N/A . Procedure Documentation Procedure: central line and new line (In troducer and PA Catheter) Position: Trendelenburg Patient Prep;all elements of maximal garth rile barrier technique followed, mask, hat, sterile gown, steri le gloves, draped, hand hygiene, chlorhexidine gluconate and iso propyl alcohol, patient draped Insertion Site:right, internal jugular Using U/S with sterile probe cover and s terile gel, vein evaluated for patency/adequacy of cortis insertion is adequate, and using realtime U/S imaging the charlie was punctured, and needle was observed entering vein on U/S. A per manent image is entered into the patient's record. Skin infiltrated with 5 mL of 1% lidocai ne. Catheter: PA Catheter, 8.5 Fr (Sheath In troducer) Assessment/Narrative Catheter: PA Catheter, 8.5 Fr (Sheath In troducer) Secured by suture Tegaderm and Biopatch dressing used. blood aspirated from all lumens All lumens flushed: Yes Verification method: Placement to be ramo ified post-op Comments: ??PA Catheter No complications Shaun West MD [place] ANESTHESIA A Line Catheter Placement (05/22/2015 5:43 PM PATROL COMMUNITY SERVICE OFFICER) Narrative Shaun West MD - 05/22/2015 5:43 PM PATROL COMMUNITY SERVICE OFFICER Shaun West MD ? 05/22/2015 ??5:43 PM ARTERIAL LINE PROCEDURE NOTE: Pre-Procedure Performed by SHAUN WEST Location: pre-op ?? Pre-Anesthestic Checklist: patient ident ified, IV checked, risks and benefits discussed and informed cons ent ?? Timeout Correct Patient: Yes Correct Procedure: Yes Correct Site: Yes Correct Laterality: N/A Correct Position: Yes Site Marked: N/A . Procedure Documentation Procedure: arterial line Supine Insertion Site:left, radial.Skin infiltr ated with mL of 1% lidocaine. Injection technique: Seldinge r Technique ??. ??. ?? Patient Prep;chlorhexidine gluconate and isopropyl alcohol, patient draped Assessment/Narrative Complications: hematoma Catheter: 20 gauge, 12 cm Secured by other Tegaderm dressing used. Arterial waveform: Yes Comments: ??Arterial Line. ??Initial att empt unable to thread catheter. ??Small hematoma. ?? CENTRAL LINE INSERTION PROCEDURE NOTE: Pre-Procedure Performed by SHAUN WEST Location: OR ?? Pre-Anesthestic Checklist: patient ident ified, risks and benefits discussed and informed consent ?? Timeout Correct Patient: Yes Correct Procedure: Yes Correct Site: Yes Correct Laterality: N/A Correct Position: Yes Site Marked: N/A . Procedure Documentation Procedure: central line and new line (In troducer and PA Catheter) Position: Trendelenburg Patient Prep;all elements of maximal garth rile barrier technique followed, mask, hat, sterile gown, steri le gloves, draped, hand hygiene, chlorhexidine gluconate and iso propyl alcohol, patient draped Insertion Site:right, internal jugular Using U/S with sterile probe cover and s terile gel, vein evaluated for patency/adequacy of cortis insertion is adequate, and using realtime U/S imaging the charlie was punctured, and needle was observed entering vein on U/S. A per manent image is entered into the patient's record. Skin infiltrated with 5 mL of 1% lidocai ne. Catheter: PA Catheter, 8.5 Fr (Sheath In troducer) Assessment/Narrative Catheter: PA Catheter, 8.5 Fr (Sheath In troducer) Secured by suture Tegaderm and Biopatch dressing used. blood aspirated from all lumens All lumens flushed: Yes Verification method: Placement to be ramo ified post-op Comments: ??PA Catheter No complications Shaun West MD [place] ANESTHESIA documented in this encounter Visit Diagnoses Not on filedocumented in this encounter Administered Medications Inactive Administered Medications - up to 3 most recent administrations Medication Order MAR Action Action Date Dose Rate Site 0.9% sodium chloride infusion New Bag 05/22/2015 7:20 AM PATROL COMMUNITY SERVICE OFFICER CONTINUOUS PRN, Anesthesia Intra-op, Starting on Wed05/22/15 at 0720, Until Wed05/22/15 at 1225 albumin human 5 % injection Restarted 05/22/2015 11:23 AM PATROL COMMUNITY SERVICE OFFICER CONTINUOUS PRN, other, Starting on Wed05/22/15 at 1110, Anesthesia Intra-op New Bag 05/22/2015 11:10 AM PATROL COMMUNITY SERVICE OFFICER ceFAZolin (ANCEF) intermittent infusion 2 g Given 05/22/2015 11: 30 AM PATROL COMMUNITY SERVICE OFFICER 1 g (pre-mix) Routine, 2 g, Intravenous, PRE-OP/PRE-PROCEDURE, Starting on Wed05/22/15 at 0530, For 1 dose, Give first dose within 1 hour PRIOR to incision. If patient weight is greater than or equal to 120 kg change dose to 3 g., Indications: Perioperative Pharmacoprophylaxis, Pre-procedure Given 05/22/2015 9:25 AM PATROL COMMUNITY SERVICE OFFICER 1 g Given 05/22/2015 7:27 AM PATROL COMMUNITY SERVICE OFFICER 2 g dexmedetomidine Rate/Dose Change 05/22/2015 11:50 0.7 mcg/kg/hr 0.53 mL/hr (PRECEDEX) drip AM [employer]OL COMMUNITY SERVICE OFFICER CONTINUOUS PRN, Starting on Wed05/22/15 at 1037, Anesthesia Intra-op New Bag 05/22/2015 10:37 AM PATROL COMMUNITY SERVICE OFFICER 0.5 mcg/kg/hr 0.38 mL/hr fentaNYL (SUBLIMAZE) injection Given 05/22/2015 7:24 AM PATROL COMMUNITY SERVICE OFFICER 250 mcg PRN, moderate to severe pain, Starting on Wed05/22/15 at 0724, Anesthesia Intra-op heparin (porcine) injection Given 05/22/2015 10:29 AM PATROL COMMUNITY SERVICE OFFICER 3,000 Units PRN, line flush, Starting on Wed05/22/15 at 0951, Anesthesia Intra-op Given 05/22/2015 10:05 AM PATROL COMMUNITY SERVICE OFFICER 3,000 Units Given 05/22/2015 9:51 AM PATROL COMMUNITY SERVICE OFFICER 11,000 Units lactated ringers infusion New Bag 05/22/2015 7:13 AM PATROL COMMUNITY SERVICE OFFICER Intravenous, CONTINUOUS PRN, Anesthesia Intra-op, Starting on Wed05/22/15 at 0713, Until Wed05/22/15 at 1225 lactated ringers infusion New Bag 05/22/2015 7:19 AM PATROL COMMUNITY SERVICE OFFICER CONTINUOUS PRN, Anesthesia Intra-op, Starting on Wed05/22/15 at 0719, Until Wed05/22/15 at 1225 midazolam (VERSED) injection Given 05/22/2015 7:24 AM PATROL COMMUNITY SERVICE OFFICER 3 mg PRN, anxiety, Starting on Wed05/22/15 at 0719, Anesthesia Intra-op Given 05/22/2015 7:19 AM PATROL COMMUNITY SERVICE OFFICER 2 mg phenylephrine injection Given 05/22/2015 11:12 AM PATROL COMMUNITY SERVICE OFFICER 50 mcg PRN, Starting on Wed05/22/15 at 0842, Anesthesia Intra-op Given 05/22/2015 10:58 AM PATROL COMMUNITY SERVICE OFFICER 100 mcg Given 05/22/2015 10:50 AM PATROL COMMUNITY SERVICE OFFICER 50 mcg propofol (DIPRIVAN) injection 10 mg/mL v ial Given 05/22/2015 7:36 AM PATROL COMMUNITY SERVICE OFFICER 50 mg PRN, Starting on Wed05/22/15 at 0724, Anesthesia Intra-op Given 05/22/2015 7:30 AM PATROL COMMUNITY SERVICE OFFICER 50 mg Given 05/22/2015 7:24 AM PATROL COMMUNITY SERVICE OFFICER 150 mg rocuronium (ZEMURON) injection Given 05/22/2015 7:24 AM PATROL COMMUNITY SERVICE OFFICER 50 mg PRN, Starting on Wed05/22/15 at 0724, Anesthesia Intra-op SUFentanil (SUFENTA) injection Given 05/22/2015 10:20 AM PATROL COMMUNITY SERVICE OFFICER 10 mcg PRN, moderate pain, Starting on Wed05/22/15 at 0818, Anesthesia Intra-op Given 05/22/2015 9:30 AM PATROL COMMUNITY SERVICE OFFICER 20 mcg Given 05/22/2015 8:36 AM PATROL COMMUNITY SERVICE OFFICER 20 mcg vecuronium (NORCURON) injection Given 05/22/2015 10:59 AM PATROL COMMUNITY SERVICE OFFICER 2 mg PRN, Starting on Wed05/22/15 at 0821, Anesthesia Intra-op Given 05/22/2015 10:14 AM PATROL COMMUNITY SERVICE OFFICER 3 mg Given 05/22/2015 9:10 AM PATROL COMMUNITY SERVICE OFFICER 3 mg documented in this encounter Care Teams Distributor Publications Relationship Specialty Start Date End Date Alfred Rios MD PCP - General Family Practice 04/18/15 Alfred Rios MD PCP - Assigned PCP 03/22/15 09/13/18 [address] [address] [place], [place] [id number] Alfred Rios MD Assigned PCP 03/22/15 06/01/20 [address] [place] [address] documented as of this encounter
--- OUTSIDE RECORDS SUMMARY | 2022-04-28 22:58 | XMS_ITS | Encounter Summary ---
:1950 Author Organization [place] Address [address] [place] [address] Care Team Providers Name Role Phone Alfred Rios MD Primary Care Provider [phone] Alfred Rios MD Unavailable Alfred Rios MD Unavailable Reason for Visit (Routine) - Closed Specialty Diagnoses / Procedures Referred By Contact Refer red To Contact Radiology / Radiology. Diagnoses Epic Order Sh Xray Procedures XR CHEST [address] [place] [address] Phone: Referral ID Status Reason Start Date Expiration Date Visits Requ ested Visits Authorized [id number] Closed 05/13/2015 05/12/2016 1 1 Encounter Details Date Type Department Care Team Description 05/13/[address] [facility] Barbara Gonzalez Cor onary artery [place] [facility] GIANA Edwards disease involving [address] [place] coronary [place], [place] SE artery of [place] [address] [place], [place] heart without angina [phone] pectoris Social History Tobacco Use Types Packs/Day [...] tablet (81 30 tablet 12 04/30/201505/12 tabletIndications: mg) by mouth daily Abnormal cardiovascular stress test atorvastatin (LIPITOR) 40 Take 1 tablet (40 30 tablet 12 07/31/2015 MG tabletIndications: mg) by mouth daily Abnormal cardiovascular stress test hydrochlorothiazide Take 25 mg by mouth 0 05/25/2015 (HYDRODIURIL) 25 MG tablet daily methylPREDNISolone (MEDROL Follow package 21 tablet 0 05/0805/22/2015 DOSEPAK) 4 MG instructions tabletIndications: Lumbar radiculopathy, DDD (degenerative disc disease), lumbar, Facet arthritis of lumbar region metoprolol (TOPROL-XL) 50 Take 1 tablet (50 30 tablet 3 05/25/2015 MG 24 hr mg) by mouth daily tabletIndications: Abnormal cardiovascular stress test, Status post coronary angiogram nitroglycerin (NITROSTAT) One tablet under 25 tablet 3 04/1201/31/2016 0.4 MG SL the tongue every 5 tabletIndications: minutes if needed Abnormal cardiovascular for chest pain. May stress test, Status post repeat every 5 coronary angiogram minutes for a maximum of 3 doses in 15 minutes traMADol (ULTRAM) 50 MG Take 1 tablet (50 30 tablet 0 04/2605/22/2015 tabletIndications: Acute mg) by mouth every low back pain 6 hours as needed for moderate pain documented as of this encounter Plan of Treatment Not on filedocumented as of this encounter Procedures Procedure Name Priority Date/Time Associated Diagnosis Comme nts XR CHEST 2 VIEWS Routine 05/13/2015 4:47 PM Coronary artery Re sults for this BARIATRIC PROGRAM COORDINATOR disease involving procedure are in si[place] coronary the results artery of [place] section. heart without angina pectoris documented in this encounter Results XR Chest 2 Views (05/13/2015 4:47 PM BARIATRIC PROGRAM COORDINATOR) Anatomical Region Laterality Modality Chest Computed Radiography Specimen (Source) Anatomical Location Collection Method / Collectio n Time Received Time / Laterality Volume Impressions 05/14/2015 9:10 AM BARIATRIC PROGRAM COORDINATOR IMPRESSION: No acute disease. 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 COMPARISON: None. FINDINGS: ??There are no acute infiltrat es. The cardiac silhouette is not enlarged. Pulmonary vasculature is u nremarkable. Procedure Note Kaiser Short MD - 05/14/2015Fo rmatting of this note might be different from the original. CHEST TWO VIEWS 05/13/2015 4:47 PM HISTORY: Atherosclerotic heart disease o f [place] coronary artery without angina pectoris. COMPARISON: None. FINDINGS: There are no acute infiltrates . The cardiac silhouette is not enlarged. Pulmonary vasculature is u nremarkable. IMPRESSION IMPRESSION: No acute disease. 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
--- OUTSIDE RECORDS SUMMARY | 2022-04-28 22:58 | XMS_ITS | Encounter Summary ---
:1950 Author Organization [facility] Address [facility] [place] [address] Care Team Providers Name Role Phone Alfred Rios MD Primary Care Provider [phone] Alfred Rios MD Unavailable Alfred Rios MD Unavailable Reason for Visit Reason Onset Date Comments Procedure 05/09/2015 LESI Encounter Details Date Type Department Care Team Description 05/09/2015 Telephone [facility] Pain Pain Management Pr ocedure (LESI) Management [address] [place] [id number] Social History Tobacco Use Types Packs/Day Years Used Date Smoking Tobacco: Former Cigarettes Quit : 10/22/1999 Smokeless Tobacco: Never Alcohol Use Standard Drinks/Week Comments Yes 0 (1 standard drink = 0.6 oz pure alcoho l) 1-2 beers daily Sex Assigned at Date Recorded Male 12/31/2020 1:31 PM CDT documented as of this encounter Miscellaneous Notes Telephone Encounter - Charo Eaton - 05/09/2015 8:46 AM CDT Pre-screening questions for Radiology Injections: Injection to be done at which interventional clinic site? [facility] Procedure ordered by Dr. Rios Procedure ordered? Lumbar Epidural Steroid Injection What insurance would patient like us to bill for this procedure? [employer] ?? Worker's comp-Any injection DO NOT SCHEDULE [...] or notify pt of denial. Is an directory compiler needed? No Patient has a drive home? (mandatory) YES: Is patient taking any blood thinners (plavix, coumadin, jantoven, warfarin, heparin, pradaxa or dabigatran )? No (If so, do not schedule, contact RN and/or MD) Is patient taking any aspirin products? Yes - Pt takes 81mg daily; instructed to hold 0 day(s) priorto procedure. (If more than 325mg/day do not [...] Is patient currently taking any steroid medications? Yes - 05/09/15- 05/14/15 - Scheduled for 05/21 For patients on steroid medications: Jayla Jett [...] ?? If not, where was it done? N/A Was the MRI done w/in the last 3 years? Yes If MRI was not done at [facility] do NOT schedule. Route to [...] sedation procedures (RFA, spinal cord stimulation trials). Not Applicable -IVs are not routinely placed for Bárbara cervical case ?? If NPO for sedation, informed patient that it is okay to take medications with sips of water (except if they are to hold blood thinners). Not Applicable *DO take blood pressure medication if it is prescribed* ?? If this is for a cervical JEFF, informed patient that aspirin needs to be held for 6 days. Not Applicable ?? Do not schedule procedures requiring IV placement in the first appointment of the day or first appointment after lunch ?? For patients 85 or older we recommend having an adult stay w/ them for the remainder of the day. Does the patient have any questions? NO Charo Eaton [facility] documented in this encounter Plan of Treatment Not on filedocumented as of this encounter Visit Diagnoses Not on filedocumented in this encounter Care Teams Telegraphic Typewriter Operator Chief Relationship Specialty Start Date End Date Alfred Rios MD PCP - General Family Practice 04/18/15 Alfred Rios MD PCP - Assigned PCP 03/22/15 09/13/18 [id number] CARL LAWLER [id number] Alfred Rios MD Assigned PCP 03/22/15 06/01/20 [id number] CARL LAWLER [id number] documented as of this encounter
--- OUTSIDE RECORDS SUMMARY | 2022-04-28 22:58 | XMS_ITS | Encounter Summary ---
:1950 Author Organization [place] Address [address] [facility] [place] [address] Care Team Providers Name Role Phone Yi Morales MD Primary Care Provider [phone] Yi Moarles MD Unavailable Yi Morales MD Unavailable Reason for Visit (Routine) - Closed Specialty Diagnoses / Procedures Referred By Contact Refer red To Contact Cardiology Diagnoses per Anastasia Preop evaluation CAB Dion Ang Cv Echocard Procedures ECH COMPLETE [address] [facility] [place] [phone] Phone: Referral ID Status Reason Start Date Expiration Date Visits Requ ested Visits Authorized [id number] Closed 05/10/2015 05/09/2016 1 1 Encounter Details Date Type Department Care Team Description 05/10/2015 Hospital Encounter [facility] CV Anastasia Izquierdo Echocardiography GIANA [place] [address] [facility] [address] [place] [id number] [address] [facility] [phone] [address] [place] [id number] (Wo rk) Social History Tobacco Use Types [...] Comme nts ECHO COMPLETE Routine 05/10/2015 7:57 AM Results for this CDT procedure are i n the results section . documented in this encounter Results Echocardiogram (05/10/2015 7:57 AM CDT) Anatomical Region Laterality Modality Echocardiography Specimen (Source) Anatomical Collection Method Collection Time Re ceived Time Location / / Volume Laterality 05/10/2015 7:46 AM CDT Narrative 05/10/2015 9:19 AM CDT Interpretation Summary [facility]ch[facility] [address] [place] [id number] Name: RUSSEL BILLINGSLEY : 1950 Study Date: 05/10/2015 07:46 AM Age: 65 yrs Gender: Male Patient Location: [facility] Reason For Study: CAD Ordering Physician: ANASTASIA [...] be different from the original. Interpretation Summary [facility] [address] [place] [id number] Name: RUSSEL BILLINGSLEY : 1950 Study Date: 05/10/2015 07:46 AM Age: 65 yrs Gender: Male Patient Location: [facility] Reason For Study: CAD Ordering Physician: ANASTASIA [...] AM Anastasia Izquierdo PA-C CV ECHO ORDERABLES documented in this encounter Visit Diagnoses Not on filedocumented in this encounter Care Teams Information Technology Analyst Relationship Specialty Start Date End Date Yi Morales MD PCP - General Family Practice 04/18/15 Yi Morales MD PCP - Assigned PCP 03/22/15 09/13/18 [id number] [place] LAWLER [id number] Yi Morales MD Assigned PCP 03/22/15 06/01/20 [id number] CAR[place] LAWLER [id number] documented as of this encounter
--- OUTSIDE RECORDS SUMMARY | 2022-04-28 22:58 | XMS_ITS | Encounter Summary ---
:1950 Author Organization [facility] Address [address] [place] [address] Care Team Providers Name Role Phone Alfred Rios MD Primary Care Provider [phone] Alfred Rios MD Unavailable Alfred Rios MD Unavailable Reason for Visit Auth/Cert - Closed Specialty Diagnoses / Procedures Referred By Contact Refer red To Contact Surgery Diagnoses cad Sh Periop Services Procedures DAVINCI BYPASS ARTERY CORONARY [address], [address] [place] [address] Phone: Referral ID Status Reason Start Date Expiration Date Visits Requ ested Visits Authorized [id number] Closed 1 1 Encounter Details Date Type Department Care Team Description 05/22/2015 Surgery [facility] Chapo Celis ROBOTIC C ORONARY ARTERY [place] PeriOP MD [place] BYPASS (LI MA TO LAD) Services (OFF PUMP) [address], [address] [place] [address] Surgery Details Date/Time Status Location OR Service Patient Case Case Traum a Class Class Type Case? 05/22/15 7:30 Posted OR OR M [facility] Surgery AM 12 Cardiovascular Admit Panel 1 Procedure LRB Anes Op Region Wound Class Commen ts ROBOTIC CORONARY ARTERY N/A General Heart I-Clean R OBOTIC CORONARY ARTERY BYPASS (RIVAS TO LAD) (OFF BYPASS (RIVAS TO LAD) (OFF PUMP) PUMP) Surgeon Surgeon Role Service Panel Chapo Celis MD Primary [facility] Cardiovascul ar 1 Special Needs Wears glasses. documented in this encounter Social History Tobacco [...] Sign Reading Time Taken Comments Blood Pressure 139/82 05/22/2015 6:00 AM STEEL MELTER Pulse - - Temperature 36 ??C (96.8 ??F) 05/22/2015 6:00 AM STEEL MELTER Respiratory Rate 11 05/22/2015 1:15 PM STEEL MELTER Oxygen Saturation 100% 05/22/2015 1:15 PM STEEL MELTER Inhaled Oxygen Concentration - - Weight 74.9 kg (165 lb 1 oz) 05/22/2015 5:32 AM STEEL MELTER Height 167.6 cm (5' 6) 05/22/2015 5:32 AM STEEL MELTER Body Mass Index 26.76 05/22/2015 5:32 AM STEEL MELTER documented in this encounter Discharge Summaries Chapo Celis MD - 05/25/2015 9:50 AM CST Discharge Summary Anthony Chun Date of : 1950 Age: [age] year old Date of Admission: 05/22/2015 Date of Discharge: 05/25/2015 Admitting Physician: Chapo Celsi MD Discharge Physician: Chapo Celis,* Discharging Service: Cardiovascular and Thoracic Surgery Home clinic: [facility] Primary Provider: Alfred Rios Admission Diagnoses: cad [...] MG tablet Comments: Reason for Stopping: Consultations: Payroll Benefits Administrator, Nutrition, Cardiac Rehab Brief History of Illness: [...] robotic-assisted coronary artery bypass grafting surgery with RIAVS to LAD. Hospital Course: Mr Chun underwent [...] and medical issues. *Follow up with physician painter assistant in the office of Dr Celis, heart surgeon, on 06/10/15 at 3:00 pm at [facility] at [facility] [address]. If any questions or concerns call [phone]. You will see us once at this visit and then if everything is going well you will not need to seeus again. You will follow senior care with your inbound customer service representative. *Follow up with Dr Flowers, inbound customer service representative, in 3 months. This is who you will follow with senior care about your heart issues. [phone]. *For [facility] outpatient cardiac rehab, call [phone]. Outpatient therapy: Cardiac Rehab Home Care agency: None Supplies and equipment: None Lines and drains: None Wound care: Wash incision daily with antibacterial soap Other instructions: None L MELTER documented in this encounter Discharge Instructions Discharge [...] relieved by pain medications Your Daily Weight [facility] Station 33 Weigh yourself every [...] 29. 14. 30. 15. 31. 16. 32. L MELTER documented in this encounter Medications at Time [...] to home today. Cynthia Camacho PA-C Pager [phone] L MELTER José Miguel Mcclelland PA-C - 05/24/2015 10:[address] [facility] Cardiothoracic Surgery - Daily Progress Note [...] Mcclelland PA-C [facility] - Cardiothoracic Surgery Pager: [phone] L MELTER Associated attestation - Reymundo Slaughter MD - 05/24/2015 2:31 PM STEEL MELTER Physician Attestation I agree with the information in this note. Charo Minor RD, LD - 05/24/2015 8:57 AM CST NUTRITION ASSESSMENT REASON FOR ASSESSMENT: Cardiac Surgery Nutrition Consult CURRENT DIET / INTAKE: Regular Visited with pt this morning Reports good appetite and is enjoying the food Had Citizen Of [place] toast, cinnamon roll, banana and OJ for breakfast Eating ~100% NUTRITION HISTORY: Pt follows a regular diet at home Eats fruits and veggies daily - likes to have raw veggies for a snack Is not a milk drinker No food allergies ANTHROPOMETRICS: Ht: 5'6 Wt: (05/22 - admit) 74.9 kg BMI: 26.6 IBW: 64.5 kg %IBW: 116% ASSESSED NUTRITION NEEDS: Estimated Energy Needs 1294-9697 kcals/day (25-30 kcals/kg) - maintenance Estimated Protein Needs 90-115 gms/day (1.2-1.5 gms/kg) - Post-op healing Estimated Fluid Needs 4232-3858 (1 mL/kcal) or per MD goals for [...] will participate in out-patient cardiac rehab at [facility] and attend nutrition classes during theprogram Maryanne Nguyen RN - 05/23/2015 5:02 PM CST Report given to station 33 RN, questions answered. Pt transferred with aide and flyisaiah RN to [facility]-. 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 General Information Onset of [...] formally Bed Mobility Skill: Scooting/Bridging Level of [place]: Scooting/Bridging contact guard Physical Assist/Nonphysical Assist: Scooting/Bridging 1 person assist;verbal cues Bed Mobility Skill: Sit to Supine Level of [place]: Sit/Supine minimum assist (75% patients effort) Physical Assist/Nonphysical Assist: Sit/Supine 1 person assist;verbal cues Transfer Skill: Bed to Chair/Chair to Bed Level of [place]: Bed to Chair contact guard Physical Assist/Nonphysical Assist: Bed to Chair 1 person assist;verbal cues Transfer Skill: Sit to Stand Level of [place]: Sit/Stand contact guard Physical Assist/Nonphysical Assist: Sit/Stand 1 person assist;verbal cues Lower Body Dressing Level of [place]: Dress Lower Body maximum assist (25% patients [...] needed with ADL/IADL's and OP CR at [facility]. ) Risks and Benefits of Treatment have been explained. Yes Patient, Family & other staff in agreement with plan of care Yes Total Evaluation Time Total Evaluation Time (Minutes) 15 L MELTER Barbara Gonzalez PA-C - 05/23/2015 9:[address] [facility] Cardiovascular and Thoracic Surgery Daily Note Assessment and Plan: POD#1 s/p ROBOTIC CORONARY ARTERY BYPASS (RIVAS TO LAD) (OFF PUMP) By Dr. Celsi -CVS: HR 70s, SBP: 100s/60s, off gtt's, [...] postoperative chest. Barbara Gonzalez PA-C Pager #: [phone] L MELTER Associated attestation - Reymundo Slaughter MD - 05/24/2015 2:32 PM STEEL MELTER Physician Attestation I agree with the information [...] visited. Yan and nicardipine drips were stopped. L MELTER Dewayne Garcia RT - 05/22/2015 4:58 PM CST Pt extubated to 40% aerosol mask. No stridor noted. Will continue to follow. Dewayne Garcia L MELTER Karsten Rogers RN - 05/22/2015 4:35 PM CST Pt restrains dc. Pt was extubated and agreed not to pull at any tubes or cables. L MELTER Andrea Alberto MD - 05/22/2015 2:32 PM [...] 98 455* HCO3 27 27 31* O2PER Lnlugnpsgw95% -- -- Recent Labs Lab 05/22/15 1255 [...] well with SBT. Will extubate Andrea Alberto L MELTER documented in this encounter Consult Notes Tamy Tejada RD, TALA - 05/22/2015 2:24 PM CSTAssociated Order(s): NUTRITION SERVICES ADULT IP CONSULT CARDIAC SURGERY NUTRITION CONSULT Received standing order to assess and educate patient Patient inappropriate for instructions at this time Will follow and complete assessment once patient is extubated and/or transferred to medical unit Tamy Tejada RD, LD, [facility] Clinical Dietitian - [facility] L MELTER documented in this encounter Miscellaneous Notes Plan [...] therapy is recommended. Rationale/Recommendations: OP CR at [facility]; discharged prior to session, see previous documenation for current function; assist at home with IADL's due to post operative precautions.. L MELTER Plan of Care - Roro Hall RN - 05/25/2015 11:32 AM CST Problem: Goal Outcome Summary Goal: Goal Outcome Summary Outcome: No Change VSS. Pain controlled with oxycodone. Adequate I&Os. Up with SBA. Incisions CD&I with dermabond. DC instructions reviewed and well received by pt/. DC to home. L MELTER Plan of Care - Marya Tinoco RN [...] is to possibly DC to Home today. L MELTER Plan of Care - Roro Hall RN - 05/24/2015 2:45 PM CST Problem: Goal Outcome Summary Goal: Goal Outcome Summary Outcome: No Change VSS. Pain controlled with po pain meds. Up ambulating with SBA. Adequate I&Os. Using IS, fluttervalve, and C&DB. Passing flatus, no BM yet. L MELTER Plan of Care - Yue Natarajan OT - 05/24/2015 9:11 [...] home with phase II OP CR at [facility]. L MELTER Plan of Care - Katty Davenport, JAGDEEP [...] d/i with surrounding ecchymosis. Slept between cares. L MELTER Plan of Care - Deepa Dent OT - 05/23/2015 11:14 AM CST Problem: Goal Outcome Summary Goal: Goal Outcome Summary OT/CR: Eval completed and treatment initiated. 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 Pt currently limited due to chest [...] A as needed and oP CR at [facility] at discharge. L MELTER Plan of Care - Rosa Washburn RN - 05/23/2015 5:51 AM CST Problem: Goal Outcome Summary Goal: Goal Outcome Summary Outcome: Improving Pt progressing along pathway. Drips weaned and lines out. Minimal CT output; good UOP. Adequate paincontrol. Tolerating progression of activity. L MELTER Op Note - Lalita, Chapo Tipton MD [...] left anterior descending. SURGEON: Chapo Celis MD TIMBER KILLER: Aisha García MD SECOND BENEFITS COORDINATOR: José Miguel Mcclelland PA-C INDICATION FOR SURGERY: [...] CELIS MD MT: [id number] Name: ANTHONY CHUN MRN: [id number] Account: [id number] : 1950 Procedure Date: 05/22/2015 Document: [id number] cc: Alton Rios MD L MELTER Brief Op Note - Brandon García MD - 05/22/2015 11:46 AM CST [facility] Brief Operative Note Pre-operative diagnosis: cad Post-operative diagnosis * No post-op diagnosis entered * Procedure: Procedure(s): ROBOTIC CORONARY ARTERY BYPASS (RIVAS TO LAD) (OFF PUMP) Surgeon(s): Surgeon(s) and Role: * Chapo Celis MD - Primary Estimated blood loss: 30 mL Specimens: * No specimens in log * Findings: Good RIVAS and good LAD target L MELTER documented in this encounter Plan of Treatment Pending Results Name Type Priority Associated Diagnoses Date/Ti me INR AND PTT PANEL Lab Routine 05/22/2015 11:15 AM STEEL MELTER Scheduled Orders Name Type Priority Associated Diagnoses [...] 05/25/2015 7:17 AM Resul ts for this STEEL MELTER procedure are i n the results section. MAGNESIUM Timed 05/25/2015 6:35 AM Results f or this STEEL MELTER procedure are i n the results section. BASIC METABOLIC PANEL Routine 05/25/2015 6:35 AM Results for this STEEL MELTER procedure are i n the results section. CBC WITH PLATELETS Routine 05/25/2015 6:35 AM Res ults for this STEEL MELTER procedure are i n the results section. GLUCOSE BY METER Routine 05/24/2015 9:59 PM Resul ts for this STEEL MELTER procedure are i n the results section. GLUCOSE BY METER Routine 05/24/2015 5:04 PM Resul ts for this STEEL MELTER procedure are i n the results section. GLUCOSE BY METER Routine 05/24/2015 12:49 Results for this PM STEEL MELTER procedure are i n the results section. GLUCOSE BY METER Routine 05/24/2015 8:06 AM Resul ts for this STEEL MELTER procedure are i n the results section. XR CHEST 2 VIEWS Routine 05/24/2015 8:05 AM Resul ts for this STEEL MELTER procedure are i n the results section. MAGNESIUM Routine 05/24/2015 7:23 AM Results f or this STEEL MELTER procedure are i n the results section. BASIC METABOLIC PANEL Routine 05/24/2015 7:23 AM Results for this STEEL MELTER procedure are i n the results section. CBC WITH PLATELETS Routine 05/24/2015 7:23 AM Res ults for this STEEL MELTER procedure are i n the results section. GLUCOSE BY METER Routine 05/24/2015 4:22 AM Resul ts for this STEEL MELTER procedure are i n the results section. GLUCOSE BY METER Routine 05/23/2015 9:09 PM Resul ts for this STEEL MELTER procedure are i n the results section. GLUCOSE BY METER Routine 05/23/2015 5:13 PM Resul ts for this STEEL MELTER procedure are i n the results section. GLUCOSE BY METER Routine 05/23/2015 3:20 PM Resul ts for this STEEL MELTER procedure are i n the results section. GLUCOSE BY METER Routine 05/23/2015 11:46 Results for this AM STEEL MELTER procedure are i n the results section. GLUCOSE BY METER Routine 05/23/2015 9:58 AM Resul ts for this STEEL MELTER procedure are i n the results section. GLUCOSE BY METER Routine 05/23/2015 8:10 AM Resul ts for this STEEL MELTER procedure are i n the results section. EKG 12-LEAD, TRACING Routine 05/23/2015 7:41 AM R esults for this ONLY STEEL MELTER procedure are i n the results section. XR CHEST PORT 1 VIEW Routine 05/23/2015 5:15 AM R esults for this STEEL MELTER procedure are i n the results section. IONIZED CALCIUM Routine 05/23/2015 4:31 AM Result s for this STEEL MELTER procedure are i n the results section. PHOSPHORUS Routine 05/23/2015 4:30 AM Results f or this STEEL MELTER procedure are i n the results section. MAGNESIUM Routine 05/23/2015 4:30 AM Results f or this STEEL MELTER procedure are i n the results section. HEMOGLOBIN A1C Routine 05/23/2015 4:30 AM Results for this STEEL MELTER procedure are i n the results section. BASIC METABOLIC PANEL Routine 05/23/2015 4:30 AM Results for this STEEL MELTER procedure are i n the results section. CBC WITH PLATELETS Routine 05/23/2015 4:30 AM Res ults for this STEEL MELTER procedure are i n the results section. GLUCOSE BY METER Routine 05/23/2015 4:23 AM Resul ts for this STEEL MELTER procedure are i n the results section. GLUCOSE BY METER Routine 05/23/2015 2:13 AM Resul ts for this STEEL MELTER procedure are i n the results section. GLUCOSE BY METER Routine 05/23/2015 12:04 Results for this AM STEEL MELTER procedure are i n the results section. GLUCOSE BY METER Routine 05/22/2015 10:22 Results for this PM STEEL MELTER procedure are i n the results section. GLUCOSE BY METER Routine 05/22/2015 9:16 PM Resul ts for this STEEL MELTER procedure are i n the results section. GLUCOSE BY METER Routine 05/22/2015 8:17 PM Resul ts for this STEEL MELTER procedure are i n the results section. GLUCOSE BY METER Routine 05/22/2015 7:02 PM Resul ts for this STEEL MELTER procedure are i n the results section. GLUCOSE BY METER Routine 05/22/2015 6:01 PM Resul ts for this STEEL MELTER procedure are i n the results section. GLUCOSE BY METER Routine 05/22/2015 5:07 PM Resul ts for this STEEL MELTER procedure are i n the results section. ISTAT GASES Routine 05/22/2015 4:15 PM Results f or this ELECTROLYTES ARTERIAL STEEL MELTER proced ure are in POCT the results section. GLUCOSE BY METER Routine 05/22/2015 4:12 PM Resul ts for this STEEL MELTER procedure are i n the results section. GLUCOSE BY METER Routine 05/22/2015 3:39 PM Resul ts for this STEEL MELTER procedure are i n the results section. GLUCOSE BY METER Routine 05/22/2015 2:44 PM Resul ts for this STEEL MELTER procedure are i n the results section. BLOOD GAS ARTERIAL WITH STAT 05/22/2015 12:55 Results for this OXYHEMOGLOBIN PM STEEL MELTER procedure are in the results section. INR STAT 05/22/2015 12:55 Results for this PM STEEL MELTER procedure are i n the results section. PHOSPHORUS STAT 05/22/2015 12:55 Results for this PM STEEL MELTER procedure are i n the results section. PARTIAL THROMBOPLASTIN STAT 05/22/2015 12:55 R esults for this TIME PM STEEL MELTER procedure are i n the results section. MAGNESIUM STAT 05/22/2015 12:55 Results for this PM STEEL MELTER procedure are i n the results section. IONIZED CALCIUM STAT 05/22/2015 12:55 Results for this PM STEEL MELTER procedure are i n the results section. BASIC METABOLIC PANEL STAT 05/22/2015 12:55 Re sults for this PM STEEL MELTER procedure are i n the results section. CBC WITH PLATELETS STAT 05/22/2015 12:55 Resul ts for this PM STEEL MELTER procedure are i n the results section. LACTIC ACID STAT 05/22/2015 12:53 Results for this PM STEEL MELTER procedure are i n the results section. XR POST OPERATIVE STAT 05/22/2015 12:40 Result s for this IMAGING [place] PM STEEL MELTER procedure ar e in the results section. GLUCOSE BY METER Routine 05/22/2015 12:20 Results for this PM STEEL MELTER procedure are i n the results section. EKG 12-LEAD, TRACING STAT 05/22/2015 12:19 Res ults for this ONLY PM STEEL MELTER procedure are i n the results section. INR AND PTT PANEL Routine 05/22/2015 11:15 AM STEEL MELTER CBC WITH PLATELETS & Routine 05/22/2015 11:15 Res ults for this DIFFERENTIAL AM STEEL MELTER procedure are i n the results section. INR Routine 05/22/2015 11:15 Results for this AM STEEL MELTER procedure are i n the results section. PARTIAL THROMBOPLASTIN Routine 05/22/2015 11:15 R esults for this TIME AM STEEL MELTER procedure are i n the results section. FIBRINOGEN ACTIVITY Routine 05/22/2015 11:15 Resu lts for this AM STEEL MELTER procedure are i n the results section. ACTIVATED CLOTTING TIME Routine 05/22/2015 11:15 Results for this POCT AM STEEL MELTER procedure are i n the results section. BASIC METABOLIC PANEL Routine 05/22/2015 11:15 Re sults for this AM STEEL MELTER procedure are i n the results section. ISTAT GASES Routine 05/22/2015 10:42 Results for this ELECTROLYTES ARTERIAL AM STEEL MELTER proced ure are in POCT the results section. ACTIVATED CLOTTING TIME Routine 05/22/2015 10:38 Results for this POCT AM STEEL MELTER procedure are i n the results section. ACTIVATED CLOTTING TIME Routine 05/22/2015 10:12 Results for this POCT AM STEEL MELTER procedure are i n the results section. ISTAT GASES Routine 05/22/2015 10:01 Results for this ELECTROLYTES ARTERIAL AM STEEL MELTER proced ure are in POCT the results section. ACTIVATED CLOTTING TIME Routine 05/22/2015 9:59 AM Results for this POCT STEEL MELTER procedure are i n the results section. ISTAT GASES Routine 05/22/2015 8:52 AM Results f or this ELECTROLYTES ARTERIAL STEEL MELTER proced ure are in POCT the results section. ISTAT GASES Routine 05/22/2015 8:07 AM Results f or this ELECTROLYTES ARTERIAL STEEL MELTER proced ure are in POCT the results section. ACTIVATED CLOTTING TIME Routine 05/22/2015 8:06 AM Results for this POCT STEEL MELTER procedure are i n the results section. CORONARY ARTERY BYPASS 05/22/2015 7:18 AM cad GRAFT, ROBOT-ASSISTED STEEL MELTER Special Needs Wears glasses. BLOOD COMPONENT Routine 05/22/2015 5:48 AM STEEL MELTER Re sults for this procedure are in the resu lts section. BLOOD COMPONENT Routine 05/22/2015 5:48 AM STEEL MELTER Re sults for this procedure are in the resu lts section. BLOOD COMPONENT Routine 05/22/2015 5:48 AM STEEL MELTER Re sults for this procedure are in the resu lts section. BLOOD COMPONENT Routine 05/22/2015 5:48 AM STEEL MELTER Re sults for this procedure are in the resu lts section. ABO/RH TYPE AND SCREEN STAT 05/22/2015 5:48 AM STEEL MELTER Results for this procedure are in the resu lts section. documented in this encounter Results (ABNORMAL) Glucose by meter (05/25/2015 7:17 AM STEEL MELTER) P athologist Signature Glucose 149 (H) 70 - 99 POINT OF CARE mg/dL TEST, GLUCOSE Specimen Anatomical Collection Method Collection Time Receive d Time (Source) Location / / Volume Laterality 05/25/2015 7:17 AM 5 7:20 STEEL MELTER AM STEEL MELTER Chapo Celis MD LAB - BEAKER POCT Performing Organization Address City/State/ZIP Code Phon e Number FV POINT OF CARE TEST, GLUCOSE POINT OF CARE TEST, GLUCOSE Magnesium (05/25/2015 6:35 AM STEEL MELTER) athologist Signature Magnesium 2.2 1.6 - 2.3 [place] mg/dL [facility] Specimen Anatomical Collection Method Collection Time Receive d Time (Source) Location / / Volume Laterality Blood specimen 05/25/2015 6:35 AM 015 6:53 (specimen) STEEL MELTER AM STEEL MELTER Chapo Celis MD LAB - BLOOD ORDERABLES Performing Organization Address City/State/ZIP Code Phon e Number M [facility] [address] [phone] [facility] [address] [address], [place] [phone] (ABNORMAL) Basic metabolic panel (05/25/2015 6:35 AM STEEL MELTER) P athologist Signature Sodium 139 133 - 144 [place] mmol/L [facility] Potassium 3.8 3.4 - 5.3 [place] mmol/L [facility] Chloride 105 94 - 109 [place] mmol/L [facility] Carbon Dioxide 28 20 - 32 [place] mmol/L [facility] Anion Gap 6 3 - 14 [place] mmol/L [facility] Glucose 108 (H) 70 - 99 [place] mg/dL [facility] Urea Nitrogen 15 7 - 30 [place] mg/dL [facility] Creatinine 0.97 0.66 - [place] 1.25 mg/dL [facility] GFR Estimate 77 >60 [place] mL/min/1.[address] Comment: Non GFR Calc GFR Estimate If Black >90 >60 mL/min/1.7m2 F [facility] GFR Calc HOSP ITAL Calcium 8.3 (L) 8.5 - 10.1 mg/dL [facility] Specimen Anatomical Collection Method Collection Time Receive d Time (Source) Location / / Volume Laterality Blood specimen 05/25/2015 6:35 AM 015 6:53 (specimen) STEEL MELTER AM STEEL MELTER José Miguel Mcclelland PA-C LAB - BLOOD ORDERABLES Performing Organization Address City/State/ZIP Code Phon e Number [facility] [address] [phone] [facility] [address] [address], [facility] [phone] (ABNORMAL) CBC with platelets (05/25/2015 6:35 AM STEEL MELTER) Analysis Performed At Patho logist Time Signature WBC 9.0 4.0 - 11.0 [place] 10e9/L [facility] RBC Count 4.05 (L) 4.4 - 5.9 [place] 10e12/L [facility] Hemoglobin 13.0 (L) 13.3 - [place] 17.7 g/dL [facility] Hematocrit 36.5 (L) 40.0 - [place] 53.0 % [facility] MCV 90 78 - 100 [facility] MCH 32.1 26.5 - [place] 33.0 pg [facility] MCHC 35.6 31.5 - [place] 36.5 g/dL [facility] RDW 12.8 10.0 - [place] 15.0 % [facility] Platelet Count 175 150 - 450 [place] 10e9/L [facility] Specimen Anatomical Collection Method Collection Time Receive d Time (Source) Location / / Volume Laterality Blood specimen 05/25/2015 6:35 AM 015 6:53 (specimen) STEEL MELTER AM STEEL MELTER José Miguel Mcclelland PA-C LAB - BLOOD ORDERABLES Performing Organization Address City/State/ZIP Code Phon e Number [facility] [address] [place] [address] [facility] [address] [place] [address], [place] [phone] (ABNORMAL) Glucose by meter (05/24/2015 9:59 PM STEEL MELTER) P athologist Signature Glucose 112 (H) 70 - 99 POINT OF CARE mg/dL TEST, GLUCOSE Specimen Anatomical Collection Method Collection Time Receive d Time (Source) Location / / Volume Laterality 05/24/2015 9:59 PM 5 STEEL MELTER 10:00 PM STEEL MELTER Chapo SHEPHERD POCT Performing Organization Address City/State/ZIP Code Phon e Number F[facility] POINT OF CARE TEST, GLUCOSE POINT OF CARE TEST, GLUCOSE (ABNORMAL) Glucose by meter (05/24/2015 5:04 PM STEEL MELTER) P athologist Signature Glucose 146 (H) 70 - 99 POINT OF CARE mg/dL TEST, GLUCOSE Specimen Anatomical Collection Method Collection Time Receive d Time (Source) Location / / Volume Laterality 05/24/2015 5:04 PM 5:10 STEEL MELTER PM STEEL MELTER Chapo SHEPHERD POCT Performing Organization Address City/State/ZIP Code Phon e Number FV POINT OF CARE TEST, GLUCOSE POINT OF CARE TEST, GLUCOSE Glucose by meter (05/24/2015 12:49 PM STEEL MELTER) P athologist Signature Glucose 92 70 - 99 POINT OF CARE mg/dL TEST, GLUCOSE Specimen Anatomical Collection Method Collection Time Receive d Time (Source) Location / / Volume Laterality 05/24/2015 12:49 05/24/2015 PM STEEL MELTER 12:55 PM STEEL MELTER Chapo [place] - [place] POCT Performing Organization Address City/State/ZIP Code Phon e Number F[facility] POINT OF CARE TEST, GLUCOSE POINT OF CARE TEST, GLUCOSE (ABNORMAL) Glucose by meter (05/24/2015 8:06 AM STEEL MELTER) P athologist Signature Glucose 121 (H) 70 - 99 POINT OF CARE mg/dL TEST, GLUCOSE Specimen Anatomical Collection Method Collection Time Receive d Time (Source) Location / / Volume Laterality 05/24/2015 8:06 AM 5 8:21 STEEL MELTER AM STEEL MELTER Chapo SHEPHERD POCT Performing Organization Address City/State/ZIP Code Phon e Number FV POINT OF CARE TEST, GLUCOSE POINT OF CARE TEST, GLUCOSE XR Chest 2 Views (05/24/2015 8:05 AM STEEL MELTER) Anatomical Region Laterality Modality Chest Computed Radiography Specimen (Source) Anatomical Location Collection Method / Collectio n Time Received Time / Laterality Volume Impressions 05/24/2015 9:17 AM STEEL MELTER IMPRESSION: No pneumothorax demonstrated. KAISER SHORT MD Narrative 05/24/2015 9:17 AM STEEL MELTER CHEST TWO VIEWS May 24, 2015 8:05 [...] IMAGING ORDER NIRU Magnesium (05/24/2015 7:23 AM STEEL MELTER) athologist Signature Magnesium 2.3 1.6 - 2.3 [place] mg/dL [facility] Specimen Anatomical Collection Method Collection Time Receive d Time (Source) Location / / Volume Laterality Blood specimen 05/24/2015 7:23 AM 015 7:37 (specimen) STEEL MELTER AM STEEL MELTER Chapo Celis MD LAB - BLOOD ORDERABLES Performing Organization Address City/[facility] Phon e Number [facility] [address] [phone] [facility] [address] [address], [place] [phone] (ABNORMAL) Basic metabolic panel (05/24/2015 7:23 AM STEEL MELTER) athologist Signature Sodium 138 133 - 144 [place] mmol/L [facility] Potassium 4.2 3.4 - 5.3 [place] mmol/L [facility] Chloride 105 94 - 109 [place] mmol/L [facility] Carbon Dioxide 25 20 - 32 [place] mmol/L [facility] Anion Gap 8 3 - 14 [place] mmol/L [facility] Glucose 110 (H) 70 - 99 [place] mg/dL [facility] Urea Nitrogen 16 7 - 30 [place] mg/dL [facility] Creatinine 0.97 0.66 - [place] 1.25 mg/dL [facility] GFR Estimate 78 >60 [place] mL/min/1.[address] Comment: Non GFR Calc GFR Estimate If [place] >90 >60 mL/min/1.7m2 F [facility] GFR Calc HOSP ITAL Calcium 8.5 8.5 - 10.1 mg/dL [facility] Specimen Anatomical Collection Method Collection Time Receive d Time (Source) Location / / Volume Laterality Blood specimen 05/24/2015 7:23 AM 015 7:37 (specimen) STEEL MELTER AM STEEL MELTER Barbara Gonzalez PA-C LAB - BLOOD ORDERABLES Performing Organization Address City/State/ZIP Code Phon e Number [facility] [address] [address] [facility] [address] [address], [place] [phone] (ABNORMAL) CBC with platelets (05/24/2015 7:23 AM STEEL MELTER) Analysis Performed At Patho logist Time Signature WBC 13.2 (H) 4.0 - 11.0 [place] 10e9/L [facility] RBC Count 4.12 (L) 4.4 - 5.9 [place] 10e12/L [facility] Hemoglobin 13.6 13.3 - [place] 17.7 g/dL [facility] Hematocrit 37.6 (L) 40.0 - [place] 53.0 % [facility] MCV 91 78 - 100 [facility] MCH 33.0 26.5 - [place] 33.0 pg [facility] MCHC 36.2 31.5 - [place] 36.5 g/dL [facility] RDW 13.3 10.0 - [place] 15.0 % [facility] Platelet Count 183 150 - 450 [place] 10e9/L [facility] Specimen Anatomical Collection Method Collection Time Receive d Time (Source) Location / / Volume Laterality Blood specimen 05/24/2015 7:23 AM 015 7:37 (specimen) STEEL MELTER AM STEEL MELTER Barbara Gonzalez PA-C LAB - BLOOD ORDERABLES Performing Organization Address City/State/ZIP Code Phon e Number [facility] [address] [address] [facility] [address] [address], [place] [phone] (ABNORMAL) Glucose by meter (05/24/2015 4:22 AM STEEL MELTER) P athologist Signature Glucose 117 (H) 70 - 99 POINT OF CARE mg/dL TEST, GLUCOSE Specimen Anatomical Collection Method Collection Time Receive d Time (Source) Location / / Volume Laterality 05/24/2015 4:22 AM 5 4:25 STEEL MELTER AM STEEL MELTER Chapo WHARTON - JOAO POCT Performing Organization Address City/State/ZIP Code Phon e Number FV POINT OF CARE TEST, GLUCOSE POINT OF CARE TEST, GLUCOSE (ABNORMAL) Glucose by meter (05/23/2015 9:09 PM STEEL MELTER) P athologist Signature Glucose 167 (H) 70 - 99 POINT OF CARE mg/dL TEST, GLUCOSE Specimen Anatomical Collection Method Collection Time Receive d Time (Source) Location / / Volume Laterality 05/23/2015 9:09 PM 5 STEEL MELTER 11:40 PM STEEL MELTER Chapo WHARTON - JOAO POCT Performing Organization Address City/State/ZIP Code Phon e Number FV POINT OF CARE TEST, GLUCOSE POINT OF CARE TEST, GLUCOSE (ABNORMAL) Glucose by meter (05/23/2015 5:13 PM STEEL MELTER) P athologist Signature Glucose 172 (H) 70 - 99 POINT OF CARE mg/dL TEST, GLUCOSE Specimen Anatomical Collection Method Collection Time Receive d Time (Source) Location / / Volume Laterality 05/23/2015 5:13 PM 5 5:21 STEEL MELTER PM STEEL MELTER Chapo WHARTON - JOAO POCT Performing Organization Address City/State/ZIP Code Phon e Number FV POINT OF CARE TEST, GLUCOSE POINT OF CARE TEST, GLUCOSE (ABNORMAL) Glucose by meter (05/23/2015 3:20 PM STEEL MELTER) P athologist Signature Glucose 129 (H) 70 - 99 POINT OF CARE mg/dL TEST, GLUCOSE Specimen Anatomical Collection Method Collection Time Receive d Time (Source) Location / / Volume Laterality 05/23/2015 3:20 PM 5 3:25 STEEL MELTER PM STEEL MELTER Chapo SHEPHERD POCT Performing Organization Address City/State/ZIP Code Phon e Number FV POINT OF CARE TEST, GLUCOSE POINT OF CARE TEST, GLUCOSE (ABNORMAL) Glucose by meter (05/23/2015 11:46 AM STEEL MELTER) P athologist Signature Glucose 128 (H) 70 - 99 POINT OF CARE mg/dL TEST, GLUCOSE Specimen Anatomical Collection Method Collection Time Receive d Time (Source) Location / / Volume Laterality 05/23/2015 11:46 05/23/2015 AM STEEL MELTER 11:50 AM STEEL MELTER Chapo SHEPHERD POCT Performing Organization Address [facility] Phon e Number FV POINT OF CARE TEST, GLUCOSE POINT OF CARE TEST, GLUCOSE (ABNORMAL) Glucose by meter (05/23/2015 9:58 AM STEEL MELTER) P athologist Signature Glucose 176 (H) 70 - 99 POINT OF CARE mg/dL TEST, GLUCOSE Specimen Anatomical Collection Method Collection Time Receive d Time (Source) Location / / Volume Laterality 05/23/2015 9:58 AM 5 STEEL MELTER 10:00 AM STEEL MELTER Chapo SHEPHERD POCT Performing Organization Address [facility] Phon e Number FV POINT OF CARE TEST, GLUCOSE POINT OF CARE TEST, GLUCOSE (ABNORMAL) Glucose by meter (05/23/2015 8:10 AM STEEL MELTER) athologist Signature Glucose 130 (H) 70 - 99 POINT OF CARE mg/dL TEST, GLUCOSE Specimen Anatomical Collection Method Collection Time Receive d Time (Source) Location / / Volume Laterality 05/23/2015 8:10 AM 5 8:16 STEEL MELTER AM STEEL MELTER Chapo SHEPHERD POCT Performing Organization Address [facility] Phon e Number FV POINT OF CARE TEST, GLUCOSE POINT OF CARE TEST, GLUCOSE EKG 12-lead, tracing only (05/23/2015 7:41 AM STEEL MELTER) [facility] gist Method Time Signature Interpretation ECG Click View RADIOLOGY Image link RESULTS to view waveform and result Specimen (Source) Anatomical Collection Method Collection Time Re ceived Time Location / / Volume Laterality 05/23/2015 7:41 AM STEEL MELTER Brandon García MD ECG ORDERABLES Performing Organization Address [facility] Phon e Number RADIOLOGY RESULTS XR Chest Port 1 View (05/23/2015 5:15 AM STEEL MELTER) Anatomical Region Laterality Modality Chest Computed Radiography Specimen (Source) Anatomical Location Collection Method / Collectio n Time Received Time / Laterality Volume Impressions 05/23/2015 8:22 AM STEEL MELTER IMPRESSION: Interval surgical procedure with left-sided chest tube in place. No evidence for pneumothorax. Sub cutaneous emphysema is noted over the left chest wall. Surgical clips are seen projecting over the left upper cardiac border and infrahilar region. Lungs appear clear. Heart size is stable. IMPRESSION: Stable postoperative chest. AURELIO OBRIEN MD Narrative 05/23/2015 8:22 AM STEEL MELTER CHEST PORTABLE ONE VIEW May 23, 2015 [...] Calcium ionized whole blood (05/23/2015 4:31 AM STEEL MELTER) athologist Signature Calcium Ionized 4.5 4.4 - 5.2 [place] Whole Blood mg/dL [facility] Specimen Anatomical Collection Method Collection Time Receive d Time (Source) Location / / Volume Laterality Blood specimen 05/23/2015 4:31 AM 015 4:42 (specimen) STEEL MELTER AM STEEL MELTER Brandon García MD LAB - BLOOD ORDERABLES Performing Organization Address City/State/ZIP Code Phon e Number [facility] [address] [address] [facility] [address] [address], [place] [phone] Phosphorus (05/23/2015 4:30 AM STEEL MELTER) athologist Signature Phosphorus 3.2 2.5 - 4.5 [place] mg/dL [facility] Specimen Anatomical Collection Method Collection Time Receive d Time (Source) Location / / Volume Laterality Blood specimen 05/23/2015 4:30 AM 015 4:42 (specimen) STEEL MELTER AM STEEL MELTER Brandon García MD LAB - BLOOD ORDERABLES Performing Organization Address City/State/ZIP Code Phon e Number [facility] [address] [place] [address] [facility] [address] [place] [address], [place] [phone] Magnesium (05/23/2015 4:30 AM STEEL MELTER) athologist Signature Magnesium 2.3 1.6 - 2.3 [place] mg/dL [facility] Specimen Anatomical Collection Method Collection Time Receive d Time (Source) Location / / Volume Laterality Blood specimen 05/23/2015 4:30 AM 015 4:42 (specimen) STEEL MELTER AM STEEL MELTER Brandon García MD LAB - BLOOD ORDERABLES Performing Organization Address City/State/ZIP Code Phon e Number [facility] [address] [place] [address] [phone] [facility] [address] [place] [address], [place] [phone] (ABNORMAL) Basic metabolic panel (05/23/2015 4:30 AM STEEL MELTER) athologist Signature Sodium 140 133 - 144 [place] mmol/L [facility] Potassium 3.4 3.4 - 5.3 [place] mmol/L [facility] Chloride 105 94 - 109 [place] mmol/L [facility] Carbon Dioxide 27 20 - 32 [place] mmol/L [facility] Anion Gap 8 3 - 14 [place] mmol/L [facility] Glucose 107 (H) 70 - 99 [place] mg/dL [facility] Urea Nitrogen 18 7 - 30 [place] mg/dL [facility] Creatinine 0.97 0.66 - [place] 1.25 mg/dL [facility] GFR Estimate 77 >60 [place] mL/min/1.[address] Comment: Non GFR Calc GFR Estimate If [place] >90 >60 mL/min/1.7m2 F [facility] GFR Calc HOSP ITAL Calcium 7.7 (L) 8.5 - 10.1 mg/dL [facility] Specimen Anatomical Collection Method Collection Time Receive d Time (Source) Location / / Volume Laterality Blood specimen 05/23/2015 4:30 AM 015 4:42 (specimen) STEEL MELTER AM STEEL MELTER Brandon García MD LAB - BLOOD ORDERABLES Performing Organization Address City/State/ZIP Code Phon e Number [facility] [address] [address] [facility] [address] [address], [place] [phone] (ABNORMAL) CBC with platelets (05/23/2015 4:30 AM STEEL MELTER) Analysis Performed At Patho logist Time Signature WBC 12.5 (H) 4.0 - 11.0 [place] 10e9/L [facility] RBC Count 3.90 (L) 4.4 - 5.9 [place] 10e12/L [facility] Hemoglobin 12.5 (L) 13.3 - [place] 17.7 g/dL [facility] Hematocrit 34.9 (L) 40.0 - [place] 53.0 % [facility] MCV 90 78 - 100 [place] fl [facility] MCH 32.1 26.5 - [place] 33.0 pg [facility] MCHC 35.8 31.5 - [place] 36.5 g/dL [facility] RDW 13.2 10.0 - [place] 15.0 % [facility] Platelet Count 184 150 - 450 [place] 10e9/L [facility] Specimen Anatomical Collection Method Collection Time Receive d Time (Source) Location / / Volume Laterality Blood specimen 05/23/2015 4:30 AM 015 4:42 (specimen) STEEL MELTER AM STEEL MELTER Brandon García MD LAB - BLOOD ORDERABLES Performing Organization Address City/State/ZIP Code Phon e Number [facility] [address] [address] [facility] [address] [address], [place] [phone] Hemoglobin A1c (05/23/2015 4:30 AM STEEL MELTER) athologist Signature Hemoglobin A1C 6.0 4.3 - 6.0 [facility] Specimen Anatomical Collection Method Collection Time Receive d Time (Source) Location / / Volume Laterality Blood specimen 05/23/2015 4:30 AM 015 4:42 (specimen) STEEL MELTER AM STEEL MELTER Brandon García MD LAB - BLOOD ORDERABLES Performing Organization Address City/State/ZIP Code Phon e Number [facility] [address] [place] [address] [facility] [address] [place] [address], [place] [phone] (ABNORMAL) Glucose by meter (05/23/2015 4:23 AM STEEL MELTER) athologist Signature Glucose 100 (H) 70 - 99 POINT OF CARE mg/dL TEST, GLUCOSE Specimen Anatomical Collection Method Collection Time Receive d Time (Source) Location / / Volume Laterality 05/23/2015 4:23 AM 5 4:25 STEEL MELTER AM STEEL MELTER Chapo SHEPHERD POCT Performing Organization Address City/State/ZIP Code Phon e Number FV POINT OF CARE TEST, GLUCOSE POINT OF CARE TEST, GLUCOSE (ABNORMAL) Glucose by meter (05/23/2015 2:13 AM STEEL MELTER) athologist Signature Glucose 101 (H) 70 - 99 POINT OF CARE mg/dL TEST, GLUCOSE Specimen Anatomical Collection Method Collection Time Receive d Time (Source) Location / / Volume Laterality 05/23/2015 2:13 AM 5 2:15 STEEL MELTER AM STEEL MELTER Chapo SHEPHERD POCT Performing Organization Address City/State/ZIP Code Phon e Number FV POINT OF CARE TEST, GLUCOSE POINT OF CARE TEST, GLUCOSE (ABNORMAL) Glucose by meter (05/23/2015 12:04 AM STEEL MELTER) athologist Signature Glucose 111 (H) 70 - 99 POINT OF CARE mg/dL TEST, GLUCOSE Specimen Anatomical Collection Method Collection Time Receive d Time (Source) Location / / Volume Laterality 05/23/2015 12:04 05/23/2015 AM STEEL MELTER 12:10 AM STEEL MELTER Chapo SHEPHERD POCT Performing Organization Address City/State/ZIP Code Phon e Number FV POINT OF CARE TEST, GLUCOSE POINT OF CARE TEST, GLUCOSE (ABNORMAL) Glucose by meter (05/22/2015 10:22 PM STEEL MELTER) P athologist Signature Glucose 111 (H) 70 - 99 POINT OF CARE mg/dL TEST, GLUCOSE Specimen Anatomical Collection Method Collection Time Receive d Time (Source) Location / / Volume Laterality 05/22/2015 10:22 05/22/2015 PM STEEL MELTER 10:26 PM STEEL MELTER Chapo SHEPHERD POCT Performing Organization Address City/[facility]/ZIP Code Phon e Number FV POINT OF CARE TEST, GLUCOSE POINT OF CARE TEST, GLUCOSE Glucose by meter (05/22/2015 9:16 PM STEEL MELTER) P athologist Signature Glucose 96 70 - 99 POINT OF CARE mg/dL TEST, GLUCOSE Specimen Anatomical Collection Method Collection Time Receive d Time (Source) Location / / Volume Laterality 05/22/2015 9:16 PM 5 9:21 STEEL MELTER PM STEEL MELTER Chapo SHEPHERD POCT Performing Organization Address City/[facility]/ZIP Code Phon e Number FV POINT OF CARE TEST, GLUCOSE POINT OF CARE TEST, GLUCOSE (ABNORMAL) Glucose by meter (05/22/2015 8:17 PM STEEL MELTER) P athologist Signature Glucose 114 (H) 70 - 99 POINT OF CARE mg/dL TEST, GLUCOSE Specimen Anatomical Collection Method Collection Time Receive d Time (Source) Location / / Volume Laterality 05/22/2015 8:17 PM 5 8:20 STEEL MELTER PM STEEL MELTER Chapo SHEPHERD POCT Performing Organization Address City/[facility]/ZIP Code Phon e Number FV POINT OF CARE TEST, GLUCOSE POINT OF CARE TEST, GLUCOSE (ABNORMAL) Glucose by meter (05/22/2015 7:02 PM STEEL MELTER) P athologist Signature Glucose 106 (H) 70 - 99 POINT OF CARE mg/dL TEST, GLUCOSE Specimen Anatomical Collection Method Collection Time Receive d Time (Source) Location / / Volume Laterality 05/22/2015 7:02 PM 5 7:05 STEEL MELTER PM STEEL MELTER Chapo Celis MD LAB - BETELLO POCT Performing Organization Address City/State/ZIP Code Phon e Number FV POINT OF CARE TEST, GLUCOSE POINT OF CARE TEST, GLUCOSE (ABNORMAL) Glucose by meter (05/22/2015 6:01 PM STEEL MELTER) athologist Signature Glucose 118 (H) 70 - 99 POINT OF CARE mg/dL TEST, GLUCOSE Specimen Anatomical Collection Method Collection Time Receive d Time (Source) Location / / Volume Laterality 05/22/2015 6:01 PM 5 6:05 STEEL MELTER PM STEEL MELTER Chapo WHARTON - BETELLO POCT Performing Organization Address City/[facility]/ZIP Code Phon e Number FV POINT OF CARE TEST, GLUCOSE POINT OF CARE TEST, GLUCOSE (ABNORMAL) Glucose by meter (05/22/2015 5:07 PM STEEL MELTER) athologist Signature Glucose 154 (H) 70 - 99 POINT OF CARE mg/dL TEST, GLUCOSE Specimen Anatomical Collection Method Collection Time Receive d Time (Source) Location / / Volume Laterality 05/22/2015 5:07 PM 5 5:11 STEEL MELTER PM STEEL MELTER Chapo Celis MD LAB - BETELLO POCT Performing Organization Address City/State/ZIP Code Phon e Number FV POINT OF CARE TEST, GLUCOSE POINT OF CARE TEST, GLUCOSE (ABNORMAL) ISTAT gases elec art POCT (05/22/2015 4:15 PM STEEL MELTER) [facility] gist Method Time Signature pH Arterial 7.38 [...] Volume Laterality 05/22/2015 4:15 PM 5 4:20 STEEL MELTER PM STEEL MELTER Chapo Celis MD LAB - JO[place] POCT Performing Organization Address City/State/ZIP Code Phon e Number FV POINT OF CARE TEST, HANDHELD METER POINT OF CARE TEST, HANDHELD METER (ABNORMAL) Glucose by meter (05/22/2015 4:12 PM STEEL MELTER) P athologist Signature Glucose 173 (H) 70 - 99 POINT OF CARE mg/dL TEST, GLUCOSE Specimen Anatomical Collection Method Collection Time Receive d Time (Source) Location / / Volume Laterality 05/22/2015 4:12 PM 5 4:16 STEEL MELTER PM STEEL MELTER Chapo SHEPHERD POCT Performing Organization Address City/State/ZIP Code Phon e Number FV POINT OF CARE TEST, GLUCOSE POINT OF CARE TEST, GLUCOSE (ABNORMAL) Glucose by meter (05/22/2015 3:39 PM STEEL MELTER) P athologist Signature Glucose 175 (H) 70 - 99 POINT OF CARE mg/dL TEST, GLUCOSE Specimen Anatomical Collection Method Collection Time Receive d Time (Source) Location / / Volume Laterality 05/22/2015 3:39 PM 5 3:45 STEEL MELTER PM STEEL MELTER Chapo WHARTON - JOAO POCT Performing Organization Address City/State/ZIP Code Phon e Number FV POINT OF CARE TEST, GLUCOSE POINT OF CARE TEST, GLUCOSE (ABNORMAL) Glucose by meter (05/22/2015 2:44 PM STEEL MELTER) P athologist Signature Glucose 181 (H) 70 - 99 POINT OF CARE mg/dL TEST, GLUCOSE Specimen Anatomical Collection Method Collection Time Receive d Time (Source) Location / / Volume Laterality 05/22/2015 2:44 PM 5 2:50 STEEL MELTER PM STEEL MELTER Chapo Celis MD LAB - BEAKER POCT Performing Organization Address City/State/ZIP Code Phon e Number FV POINT OF CARE TEST, GLUCOSE POINT OF CARE TEST, GLUCOSE Phosphorus (05/22/2015 12:55 PM STEEL MELTER) athologist Signature Phosphorus 3.1 2.5 - 4.5 [place] mg/dL [facility] Specimen Anatomical Collection Method Collection Time Receive d Time (Source) Location / / Volume Laterality Blood specimen 05/22/2015 12:55 5 1:13 (specimen) PM STEEL MELTER PM STEEL MELTER Brandon García MD LAB - BLOOD ORDERABLES Performing Organization Address City/State/ZIP Code Phon e Number [facility] [address] [place] [address] [facility] [address] [place] [address], [place] [phone] Magnesium (05/22/2015 12:55 PM STEEL MELTER) athologist Signature Magnesium 2.0 1.6 - 2.3 [place] mg/dL [facility] Specimen Anatomical Collection Method Collection Time Receive d Time (Source) Location / / Volume Laterality Blood specimen 05/22/2015 12:55 5 1:13 (specimen) PM STEEL MELTER PM STEEL MELTER Brandon García MD LAB - BLOOD ORDERABLES Performing Organization Address City/State/ZIP Code Phon e Number [facility] [address] [place] [address] [phone] [facility] [address] [place] [address], [place] [phone] Calcium ionized whole blood (05/22/2015 12:55 PM STEEL MELTER) athologist Signature Calcium Ionized 4.6 4.4 - 5.2 [place] Whole Blood mg/dL [facility] Specimen Anatomical Collection Method Collection Time Receive d Time (Source) Location / / Volume Laterality Blood specimen 05/22/2015 12:55 5 1:15 (specimen) PM STEEL MELTER PM STEEL MELTER Brandon García MD LAB - BLOOD ORDERABLES Performing Organization Address City/State/ZIP Code Phon e Number [facility] [address] [address] [facility] [address] [place] [address], [place] [phone] (ABNORMAL) Basic metabolic panel (05/22/2015 12:55 PM STEEL MELTER) P athologist Signature Sodium 141 133 - 144 [place] mmol/L [facility] Potassium 3.9 3.4 - 5.3 [place] mmol/L [facility] Chloride 107 94 - 109 [place] mmol/L [facility] Carbon Dioxide 27 20 - 32 [place] mmol/L [facility] Anion Gap 7 3 - 14 [place] mmol/L [facility] Glucose 151 (H) 70 - 99 [place] mg/dL [facility] Urea Nitrogen 20 7 - 30 [place] mg/dL [facility] Creatinine 0.98 0.66 - [place] 1.25 mg/dL [facility] GFR Estimate 76 >60 [place] mL/min/1.[address] Comment: Non GFR Calc GFR Estimate If [place] >90 >60 mL/min/1.7m2 F [facility] GFR Calc HOSP ITAL Calcium 7.9 (L) 8.5 - 10.1 mg/dL [facility] Specimen Anatomical Collection Method Collection Time Receive d Time (Source) Location / / Volume Laterality Blood specimen 05/22/2015 12:55 5 1:13 (specimen) PM STEEL MELTER PM STEEL MELTER Brandon García MD LAB - BLOOD ORDERABLES Performing Organization Address City/State/ZIP Code Phon e Number [facility] [address] [place] [address] [phone] [facility] [address] [place] [address], [place] [phone] (ABNORMAL) CBC with platelets (05/22/2015 12:55 PM STEEL MELTER) Analysis Performed At Patho logist Time Signature WBC 15.2 (H) 4.0 - 11.0 [place] 10e9/L [facility] RBC Count 4.16 (L) 4.4 - 5.9 [place] 10e12/L [facility] Hemoglobin 13.3 13.3 - [place] 17.7 g/dL [facility] Hematocrit 36.8 (L) 40.0 - [place] 53.0 % [facility] MCV 89 78 - 100 [place] fl [facility] MCH 32.0 26.5 - [place] 33.0 pg [facility] MCHC 36.1 31.5 - [place] 36.5 g/dL [facility] RDW 12.8 10.0 - [place] 15.0 % [facility] Platelet Count 186 150 - 450 [place] 10e9/L [facility] Specimen Anatomical Collection Method Collection Time Receive d Time (Source) Location / / Volume Laterality Blood specimen 05/22/2015 12:55 5 1:13 (specimen) PM STEEL MELTER PM STEEL MELTER Brandon García MD LAB - BLOOD ORDERABLES Performing Organization Address City/State/ZIP Code Phon e Number [facility] [address] [address] [phone] [facility] [address] [address], [facility] [phone] (ABNORMAL) Blood gas arterial and oxyhgb (05/22/2015 12:55 PM STEEL MELTER) [facility] gist Method Time Signature pH Arterial 7.34 (L) 7.35 - [place] 7.45 pH [facility] pCO2 Arterial 50 (H) 35 - 45 [place] mm Hg [facility] pO2 Arterial 144 (H) 80 - 105 [place] mm Hg [facility] Bicarbonate 27 21 - 28 [place] Arterial mmol/L [facility] FIO2 Ventilator [place] 50% [facility] Oxyhemoglobin 98 92 - 100 [place] Arterial % [facility] Base Excess Art 1.3 mmol/L [facility] Comment: Reference range: -9.0 to 1.8 Specimen Anatomical Collection Method Collection Time Receive d Time (Source) Location / / Volume Laterality Blood specimen 05/22/2015 12:55 5 1:15 (specimen) PM STEEL MELTER PM STEEL MELTER Brandon García MD LAB - BLOOD ORDERABLES Performing Organization Address City/State/ZIP Code Phon e Number [facility] [address] [place] [address] [phone] [facility] [address] [place] [address], [place] [phone] Partial thromboplastin time (05/22/2015 12:55 PM STEEL MELTER) athologist Signature PTT 29 22 - 37 sec [facility] Specimen Anatomical Collection Method Collection Time Receive d Time (Source) Location / / Volume Laterality Blood specimen 05/22/2015 12:55 5 1:13 (specimen) PM STEEL MELTER PM STEEL MELTER Brandon García MD LAB - BLOOD ORDERABLES Performing Organization Address City/State/ZIP Code Phon e Number [facility] [address] [place] [address] [facility] [address] [place] [address], [place] [phone] (ABNORMAL) INR (05/22/2015 12:55 PM STEEL MELTER) athologist Signature INR 1.15 (H) 0.86 - 1.14 [facility] Specimen Anatomical Collection Method Collection Time Receive d Time (Source) Location / / Volume Laterality Blood specimen 05/22/2015 12:55 5 1:13 (specimen) PM STEEL MELTER PM STEEL MELTER Brandon García MD LAB - BLOOD ORDERABLES Performing Organization Address City/State/ZIP Code Phon e Number [facility] [address] [place] [address] [facility] [address] [place] [address], [place] [phone] Lactic acid (05/22/2015 12:53 PM STEEL MELTER) P athologist Signature Lactic Acid 0.8 0.4 - 2.0 [place] mmol/L [facility] Specimen Anatomical Collection Method Collection Time Receive d Time (Source) Location / / Volume Laterality Blood specimen 05/22/2015 12:53 5 1:15 (specimen) PM STEEL MELTER PM STEEL MELTER Brandon García MD LAB - BLOOD ORDERABLES Performing Organization Address City/State/ZIP Code Phon e Number [facility] [address] [place] [address] [facility] [address] [place] [address], U [phone] XR Post Surgical Imaging (05/22/2015 12:40 PM STEEL MELTER) Anatomical Region Laterality Modality Computed Radiography Specimen (Source) Anatomical Location Collection Method / Collectio n Time Received Time / Laterality Volume Impressions 05/22/2015 1:47 PM STEEL MELTER IMPRESSION: The endotracheal tube terminates approximately 3 cm from the sergio. There is a right pulmonary a rtery catheter which terminates in the right main pulmonary a rtery. Lung volumes are low. Left chest tube in place. No pneumothora x. CELIO CONLEY MD Narrative 05/22/2015 1:47 PM STEEL MELTER XR POST SURGICAL IMAGING 05/22/2015 12:40 PM [...] (ABNORMAL) Glucose by meter (05/22/2015 12:20 PM STEEL MELTER) P athologist Signature Glucose 125 (H) 70 - 99 POINT OF CARE mg/dL TEST, GLUCOSE Specimen Anatomical Collection Method Collection Time Receive d Time (Source) Location / / Volume Laterality 05/22/2015 12:20 05/22/2015 PM STEEL MELTER 12:25 PM STEEL MELTER Chapo WHARTON - BEAKER POCT Performing Organization Address City/State/ZIP Code Phon e Number FV POINT OF CARE TEST, GLUCOSE POINT OF CARE TEST, GLUCOSE EKG 12-lead, tracing only (05/22/2015 12:19 PM STEEL MELTER[facility] Time Signature Interpretation ECG Click View RADIOLOGY Image link RESULTS to view waveform and result Specimen (Source) Anatomical Collection Method Collection Time Re ceived Time Location / / Volume Laterality 05/22/2015 12:19 PM STEEL MELTER Brandon García MD ECG ORDERABLES Performing Organization Address City/State/ZIP Code Phon e Number RADIOLOGY RESULTS Partial thromboplastin time (05/22/2015 11:15 AM STEEL MELTER) athologist Signature PTT 32 22 - 37 sec [facility] Specimen Anatomical Collection Method Collection Time Receive d Time (Source) Location / / Volume Laterality 05/22/2015 11:15 05/22/2015 AM STEEL MELTER 11:24 AM STEEL MELTER Chapo Celis MD LAB - BLOOD ORDERABLES Performing Organization Address City/[facility]/ZIP Code Phon e Number [facility] [address] [place] [address] [phone] [facility] [address] [place] [address], [place] [phone] (ABNORMAL) INR (05/22/2015 11:15 AM STEEL MELTER) athologist Signature INR 1.23 (H) 0.86 - 1.14 [facility] Specimen Anatomical Collection Method Collection Time Receive d Time (Source) Location / / Volume Laterality 05/22/2015 11:15 05/22/2015 AM STEEL MELTER 11:24 AM STEEL MELTER Chapo Celis MD LAB - BLOOD ORDERABLES Performing Organization Address City/[facility]/ZIP Code Phon e Number [facility] [address] [place] [address] [phone] [facility] [address] [place] [address], [place] [phone] Activated clotting time POCT (05/22/2015 11:15 AM STEEL MELTER) P athologist Signature Activated Clot 111 105 - 167 POINT OF CARE Time sec TEST, HANDHELD METER Specimen Anatomical Collection Method Collection Time Receive d Time (Source) Location / / Volume Laterality 05/22/2015 11:15 05/22/2015 AM STEEL MELTER 11:27 AM STEEL MELTER Chapo Celis MD LAB - ENTER/EDIT POCT Performing Organization Address City/[facility]/ZIP Code Phon e Number FV POINT OF CARE TEST, HANDHELD METER POINT OF CARE TEST, HANDHELD METER Fibrinogen activity (05/22/2015 11:15 AM STEEL MELTER) athologist Signature Fibrinogen 316 200 - 420 [place] mg/dL [facility] Specimen Anatomical Collection Method Collection Time Receive d Time (Source) Location / / Volume Laterality 05/22/2015 11:15 05/22/2015 AM STEEL MELTER 11:24 AM STEEL MELTER Chapo Celis MD LAB - BLOOD ORDERABLES Performing Organization Address City/[facility]/ZIP [facility] Phon e Number [facility] [address] [place] [address] [facility] [address] [place] [address], [facility] [phone] (ABNORMAL) CBC with platelets differential (05/22/2015 11:15 AM STEEL MELTER) [facility] gist Method Time Signature WBC 2.1 (L) 4.0 - [place] 11.0 [facility] 10e9/L [facility] RBC Count 4.14 (L) 4.4 - 5.9 [place] 10e12/L [facility] Hemoglobin 13.6 13.3 - [place] 17.7 g/dL [facility] Hematocrit 36.5 (L) 40.0 - [place] 53.0 % [facility] MCV 88 78 - 100 [place] fl [facility] MCH 32.9 26.5 - [place] 33.0 pg [facility] MCHC 37.3 (H) 31.5 - [place] 36.5 g/dL [facility] RDW 12.7 10.0 - [place] 15.0 % [facility] Platelet Count 106 (L) 150 - 450 [place] 10e9/L [facility] Diff Method Automated [facility] Method [facility] % Neutrophils 53.6 % [facility] % Lymphocytes 44.9 % [facility] % Monocytes 0.5 % [facility] % Eosinophils 0.5 % [facility] % Basophils 0.0 % [facility] % Immature 0.5 % [place] Granulocytes [facility] Absolute 1.1 (L) 1.6 - 8.3 [place] Neutrophil 10e9/L [facility] Absolute 0.9 0.8 - 5.3 [place] Lymphocytes 10e9/L [facility] Absolute 0.0 0.0 - 1.3 [place] Monocytes 10e9/L [facility] Absolute 0.0 0.0 - 0.7 [place] Eosinophils 10e9/L [facility] Absolute 0.0 0.0 - 0.2 [place] Basophils 10e9/L [facility] Abs Immature 0.0 0 - 0.4 [place] Granulocytes 10e9/L [facility] Specimen Anatomical Collection Method Collection Time Receive d Time (Source) Location / / Volume Laterality 05/22/2015 11:15 05/22/2015 AM STEEL MELTER 11:24 AM STEEL MELTER Chapo Celis MD LAB - BLOOD ORDERABLES Performing Organization Address City/State/ZIP Code Phon e Number [facility] [address] [phone] [facility] [address] [address], U [phone] (ABNORMAL) Basic metabolic panel (05/22/2015 11:15 AM STEEL MELTER) P athologist Signature Sodium 142 133 - 144 [place] mmol/L [facility] Potassium 3.8 3.4 - 5.3 [place] mmol/L [facility] Chloride 109 94 - 109 [place] mmol/L [facility] Carbon Dioxide 24 20 - 32 [place] mmol/L [facility] Anion Gap 9 3 - 14 [place] mmol/L [facility] Glucose 123 (H) 70 - 99 [place] mg/dL [facility] Urea Nitrogen 21 7 - 30 [place] mg/dL [facility] Creatinine 0.96 0.66 - [place] 1.25 mg/dL [facility] GFR Estimate 78 >60 [place] mL/min/1.[address] Comment: Non GFR Calc GFR Estimate If [place] >90 >60 mL/min/1.7m2 F [facility] GFR Calc HOSP ITAL Calcium 7.8 (L) 8.5 - 10.1 mg/dL [facility] Specimen Anatomical Collection Method Collection Time Receive d Time (Source) Location / / Volume Laterality 05/22/2015 11:15 05/22/2015 AM STEEL MELTER 11:24 AM STEEL MELTER Chapo Celis MD LAB - BLOOD ORDERABLES Performing Organization Address City/State/ZIP Code Phon e Number [facility] [address] [phone] [facility] [address] [address], [place] [phone] (ABNORMAL) ISTAT gases elec art POCT (05/22/2015 10:42 AM STEEL MELTER) P athologist Signature pH Arterial 7.38 7.35 - [...] Volume Laterality 05/22/2015 10:42 05/23/2015 7:16 AM STEEL MELTER AM STEEL MELTER Chapo Celis MD LAB - BEAKER POCT Performing Organization Address City/State/ZIP Code Phon e Number [facility] POINT OF CARE TEST, HANDHELD METER POINT OF CARE TEST, HANDHELD METER (ABNORMAL) Activated clotting time POCT (05/22/2015 10:38 AM STEEL MELTER) athologist Signature Activated Clot 352 (H) 105 - 167 POINT OF CARE Time sec TEST, HANDHELD METER Specimen Anatomical Collection Method Collection Time Receive d Time (Source) Location / / Volume Laterality 05/22/2015 10:38 05/22/2015 AM STEEL MELTER 11:27 AM STEEL MELTER Chapo Celis MD LAB - ENTER/EDIT POCT Performing Organization Address City/State/ZIP Code Phon e Number FV POINT OF CARE TEST, HANDHELD METER POINT OF CARE TEST, HANDHELD METER (ABNORMAL) Activated clotting time POCT (05/22/2015 10:12 AM STEEL MELTER) athologist Signature Activated Clot 328 (H) 105 - 167 POINT OF CARE Time sec TEST, HANDHELD METER Specimen Anatomical Collection Method Collection Time Receive d Time (Source) Location / / Volume Laterality 05/22/2015 10:12 05/22/2015 AM STEEL MELTER 11:27 AM STEEL MELTER Chapo Celis MD LAB - ENTER/EDIT POCT Performing Organization Address City/State/ZIP Code Phon e Number [facility] POINT OF CARE TEST, HANDHELD METER POINT OF CARE TEST, HANDHELD METER (ABNORMAL) ISTAT gases elec art POCT (05/22/2015 10:01 AM STEEL MELTER) [facility] gist Method Time Signature pH Arterial 7.41 7.35 [...] / Volume Laterality 05/22/2015 10:01 05/22/2015 AM STEEL MELTER 11:27 AM STEEL MELTER Chapo SHEPHERD POCT Performing Organization Address City/State/ZIP Code Phon e Number F[facility] POINT OF CARE TEST, HANDHELD METER POINT OF CARE TEST, HANDHELD METER (ABNORMAL) Activated clotting time POCT (05/22/2015 9:59 AM STEEL MELTER) P athologist Signature Activated Clot 280 (H) 105 - 167 POINT OF CARE Time sec TEST, HANDHELD METER Specimen Anatomical Collection Method Collection Time Receive d Time (Source) Location / / Volume Laterality 05/22/2015 9:59 AM 5 7:16 STEEL MELTER AM STEEL MELTER Chapo Celis MD LAB - ENTER/EDIT POCT Performing Organization Address [facility]/ZIP Code Phon e Number FV POINT OF CARE TEST, HANDHELD METER POINT OF CARE TEST, HANDHELD METER (ABNORMAL) ISTAT gases elec art POCT (05/22/2015 8:52 AM STEEL MELTER) Patholo gist Method Time Signature pH Arterial [...] Volume Laterality 05/22/2015 8:52 AM 5 7:16 STEEL MELTER AM STEEL MELTER Chapo SHEPHERD POCT Performing Organization Address City/State/ZIP Code Phon e Number FV POINT OF CARE TEST, HANDHELD METER POINT OF CARE TEST, HANDHELD METER (ABNORMAL) ISTAT gases elec art POCT (05/22/2015 8:07 AM STEEL MELTER) [facility] Method Time Signature pH Arterial 7.39 7.35 [...] / Volume Laterality 05/22/2015 8:07 AM 5 STEEL MELTER 11:27 AM STEEL MELTER Chapo WHARTON - BEAKER POCT Performing Organization Address City/State/ZIP Code Phon e Number FV POINT OF CARE TEST, HANDHELD METER POINT OF CARE TEST, HANDHELD METER Activated clotting time POCT (05/22/2015 8:06 AM STEEL MELTER) P athologist Signature Activated Clot 123 105 - 167 POINT OF CARE Time sec TEST, HANDHELD METER Specimen Anatomical Collection Method Collection Time Receive d Time (Source) Location / / Volume Laterality 05/22/2015 8:06 AM 5 STEEL MELTER 11:15 AM STEEL MELTER Chapo Celis MD LAB - ENTER/EDIT POCT Performing Organization Address City/State/ZIP Code Phon e Number FV POINT OF CARE TEST, HANDHELD METER POINT OF CARE TEST, HANDHELD METER Blood component (05/22/2015 5:48 AM STEEL MELTER) [facility] gist Method Time Signature Unit Number [id number] [facility] Blood Red Blood [place] Component Cells [facility] Reduced Division [address] [facility] Status of No longer [place] Unit available [facility] 05/23/2015 HOSPITAL 0534 Specimen Anatomical Collection Method Collection Time Receive d Time (Source) Location / / Volume Laterality 05/22/2015 5:48 AM 5 5:59 STEEL MELTER AM STEEL MELTER Shaun West MD LABORATORY Performing Organization Address City/State/ZIP Code Phon e Number [facility] [address] [place] [address] [phone] [facility] [address] [place] [address], [place] [phone] Blood component (05/22/2015 5:48 AM STEEL MELTER) [facility] gist Method Time Signature Unit Number [id number] [facility] Blood Red Blood [place] Component Cells [facility] Reduced Division [address] [facility] Status of No longer [place] Unit available [facility] 05/23/2015 HOSPITAL 0534 Specimen Anatomical Collection Method Collection Time Receive d Time (Source) Location / / Volume Laterality 05/22/2015 5:48 AM 5 5:59 STEEL MELTER AM STEEL MELTER Shaun West MD LABORATORY Performing Organization Address City/State/ZIP Code Phon e Number [facility] [address] [place] [address] [facility] [address] [place] [address], [place] [phone] Blood component (05/22/2015 5:48 AM STEEL MELTER) [facility] gist Method Time Signature Unit Number [id number] [facility] Blood Red Blood Cells [place] Component LeukoReduced [facility] Division [address] [facility] Status of No longer [place] Unit available [facility] 05/23/2015 0534 [facility] Specimen Anatomical Collection Method Collection Time Receive d Time (Source) Location / / Volume Laterality 05/22/2015 5:48 AM 5 5:59 STEEL MELTER AM STEEL MELTER Shaun West MD LABORATORY Performing Organization Address City/State/ZIP Code Phon e Number [facility] [address] [place] [address] [facility] [address] [place] [address], [place] [phone] Blood component (05/22/2015 5:48 AM STEEL MELTER) [facility] gist Method Time Signature Unit Number [id number] [facility] Blood Red Blood [place] Component Cells [facility] HOSPITAL Reduced Division [address] [facility] Status of No longer [place] Unit available [facility] 05/23/2015 HOSPITAL 0534 Specimen Anatomical Collection Method Collection Time Receive d Time (Source) Location / / Volume Laterality 05/22/2015 5:48 AM 5 5:59 STEEL MELTER AM STEEL MELTER Shaun West MD LABORATORY Performing Organization Address City/State/ZIP Code Phon e Number [facility] [address] [place] [address] [facility] [address] [place] [address], [place] [phone] ABO/Rh type and screen (05/22/2015 5:48 AM STEEL MELTER) [facility] gist Method Time Signature Units Ordered 4 [facility] ABO B [facility] RH(D) Pos [facility] Antibody Neg [place] Screen [facility] Test Valid [facility] HOSPITAL Specimen 05/25/2015 [place] Expires [facility] Crossmatch Red Blood [place] Cells [facility] Specimen Anatomical Collection Method Collection Time Receive d Time (Source) Location / / Volume Laterality Blood specimen 05/22/2015 5:48 AM 015 5:59 (specimen) STEEL MELTER AM STEEL MELTER Shaun West MD LAB - BLOOD BANK TEST ORDER Performing Organization Address City/State/ZIP Code Phon e Number [facility] [address] [phone] [facility] [address] [address], U [phone] documented in this encounter Visit Diagnoses Not on filedocumented in this encounter Administered Medications Inactive Administered Medications - up to 3 most recent administrations Medication Order MAR Action Action Date Dose Rate Site bupivacaine 0.25% Given 05/22/2015 11:32 30 mLs O perative (MARCAINE) 0.25 % AM STEEL MELTER Site/Parekh rgical Site injection PRN, Starting on Wed05/22/15 at 1132, Intra-procedure ceFAZolin 1000 mg in NaCl Given 05/22/2015 11:31 AM 1 g Operative Site/Surgical 1000 mL STEEL MELTER Site PRN, Starting on Wed05/22/15 at 1131, Intra-procedure papaverine 60mg in 20 mL Given 05/22/2015 9:11 AM 60 mg Operative Site/Surgical 0.9% NaCl injection STEEL MELTER Site PRN, Starting on Wed05/22/15 at 0911, Intra-procedure documented in this encounter Active and Recently Administered Medications Times are shown in STEEL MELTER. Scheduled Medication Order 05/23/2015 05/24/2015 05/25/2015 acetaminophen [...] Verde RN) 0830 (Given - Provider: Roro Hall, JAGDEEP) 0749 (Giv en - Provider: Roro Hall RN)0900 (Canceled Entry - Provider: Roro Hall RN) 81 mg, Oral or NG Tube, DAILY, First dos e on Wed05/23/15 at 0900, For all CAB patients NOT ON warfarin (COUMADIN) and Chest tube output less than 300 mL/8 hours atorvastatin (LIPITOR) tablet 40 mg (CANCELED) 1950 (Given - Provider: Marya Tinoco RN) 40 [...] 40 mg IV push injection (CANCE LED) 803 (Given - Provider: Maryanne Verde RN) 0831 (Given - Provider: Roro Hall RN) 40 mg, Intravenous, DAILY, for 2 Minutes , First dose on Wed05/22/15 at 1230, Reconstitute vial with 10mLs Saline and administer IV Push pantoprazole (PROTONIX) EC tablet 40 mg 748 (Given - Provider: Roro Hall RN)09 (Canceled Entry - Provider: Roro Hall RN) 40 mg, Oral, EVERY MORNING, First dose o n 05/25/15 at 0900, DO NOT CRUSH. Route changed per P&T protocol polyethylene glycol (MIRALAX/GLYCOLAX) packet 17 g (CA NCELED) 801 (Given - Provider: Maryanne Verde RN) 08 (Given - Provider: Roro Hall RN) 075 (Given - Provider: Roro Hall RN)0900 (Canceled Entry - Provider: Roro Hall RN) 17 g, Oral, DAILY, First dose on 05/26 at 1230, Give in 8 oz of water, juice, or soda. Hold for loose stools. This is the second step of a three step constipation treatment protocol. senna-docusate (SENOKOT-S;PERICOLACE) 8.6-50 MG per ta blet 1-2 tablet 801 (Given - Provider: Maryanne Verde RN)2102 (Given - Provider: Katty Davenport RN) 08 (Given - Provider: Roro Hall RN)2037 (Given - Provider: Marya Tinoco RN) 0749 (Given - Provider: Roro Hall, JAGDEEP)0900 (Canceled Entry - Provider: Roro Hall RN) [...] Provider: Maryanne Verde RN - Reason: IV Infusing)2104 (Given - Provider: Katty Davenport RN) 0427 (Given - Provider: Katty Davenport RN)1556 (Given - Provider: Roro Hall RN)2039 (Given - Provider: Marya Tinoco, JAGDEEP)2110 (Canceled Entry - Provider: Marya Tinoco RN) 0430 (Given - Provider: Marya Tinoco RN)0600 (Canceled Entry - Provider: Marya Tinoco RN)0750 (Given - Provider: Roro Hall RN) 3 mL, Intravenous, EVERY 8 HOURS, First dose on Wed05/22/15 at 1230, to lock peripheral IV dormant line. Also Ordered Q1H PRN Continuous Medication Order 05/23/2015 05/24/2015 05/25/2015 dextrose 5% and 0.45% NaCl + KCl 20 mEq/L infusion (CA NCELED) 0800 (Rate/Dose Verify - Provider: Maryanne Verde RN)1138 (New Bag - Provider: Maryanne Verde, JAGDEEP)1600 (Stopped - Provider: Maryanne Verde, JAGDEEP) at 50 mL/hr, Intravenous, CONTINUOUS, Di scontinue IV fluids when PO well tolerated., Post-procedure, Starting Wed05/22/15 at 1230, Until Lety 05/23/15 at 1543 insulin 1 unit/mL in saline (novoLIN-Reg ular) drip - ADULT IV Infusion (CANCELED) 0430 (Rate/Dose Change - Provider: Rosa Washburn RN)0800 (Rate/Dose Verify - Provider: Maryanne Verde RN)1530 (Stopped - Provider: Maryanne Verde RN) 0-24 Units/hr (0-24 mL/hr), Intravenous, at 0-24 mL/hr, CONTINUOUS, Starting 05/22/15 at 1215, Initiate drip with Algorithm #1 [...] Initial Set-up verified by: Andrea Verde RN PRN Medication Order 05/23/2015 05/24/2015 05/25/2015 acetaminophen (TYLENOL) tablet 650 mg 650 mg, Oral, EVERY 6 HOURS PRN, mild pa in, fever, Starting Wed05/24/15 at 1030, Use when patient is able to take PO. Maximum acetaminophen dose from all sources = 75 mg/kg/day not to exceed 4 grams/day. Benzocaine-Menthol (CHLORASEPTIC) 6-10 MG lozenge 1-2 lozenge (C ANCELED) 0354 (Given - Provider: Marya Tinoco RN)0431 (Canceled Entry - Provider: Mayra Tinoco RN) 1-2 lozenge, Buccal, EVERY 1 [...] Maryanne Verde RN)1140 (Given - Provider: Maryanne Verde RN)1518 (Given - Provider: Maryanne Verde RN) 0.3-0.5 mg, Intravenous, EVERY 2 HOURS P RN, Starting Wed05/22/15 at 1215, Until 05/25/15 at 1341, moderate to severe pain magnesium sulfate 1 g in D5W intermittent infusion (CA NCELED) 0644 (New Bag - Provider: Rosa Washburn RN) 1950 (New Bag - Provider: Marya Tinoco, JAGDEEP) 0951 (New Bag - Provider: Roro Hall [...] Rosa Washburn RN)1135 (Given - Provider: Maryanne Verde RN)1433 (Given - Provider: Maryanne Verde RN)1733 (Given - Provider: Sandra Oneal RN) 0001 (Given - Provider: Katty Davenport RN)0427 (Given - Provider: Katty Davenport RN)0844 (Given - Provider: Roro Hall, JAGDEEP)1249 (Given - Provider: Roro Hall, JAGDEEP)1733 (Given - Provider: Roro Hall, JAGDEEP) 0134 (Given - Provider: Marya Tinoco, JAGDEEP)0610 (Given - Provider: Marya Tinoco, JAGDEEP)0956 (Given - Provider: Roro Hall, JAGDEEP) 5-10 mg, Oral, EVERY 3 HOURS PRN, other, moderate pain, Starting Wed05/22/15 at 1215 2103 (Given - Provider: Katty Davenport RN) 2039 (Given - Provider: Marya Tinoco, RN) potassium chloride (KLOR-CON) packet 20-40 mEq (CANCEL ED) 0643 (Given - Provider: Rosa Washburn, JAGDEEP) 20-40 mEq, Oral or Feeding Tube, EVERY [...] M) CR tablet 20-40 mEq (CA NCELED) 0947 (Given - Provider: Roro Hall RN - Comment: k 3.8) 20-40 mEq, Oral, EVERY 2 HOURS PRN, Star ting Wed05/22/15 at 1215, potassium supplementation, Use if able [...] Crush. documented in this encounter Care Teams Reverse Logistics Analyst Relationship Specialty Start Date End Date Alfred Rios MD PCP - General Family Practice 04/18/15 Alfred Rios MD PCP - Assigned PCP 03/22/15 09/13/18 [id number] [address] [id number] Alfred Rios MD Assigned PCP 03/22/15 06/01/20 [id number] CARL LAWLER [id number] documented as of this encounter
--- OUTSIDE RECORDS SUMMARY | 2022-04-28 22:58 | XMS_ITS | Encounter Summary ---
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 Reason for Visit Reason Comments FU Cardiac testing post angiogram - echo done l wednesday - feeling well - Closed Specialty Diagnoses / Procedures Referred By Contact Refer red To Contact Diagnoses Abnormal cardiovascular stress test Alton Rm MD [facility] [address] [place] [address] Referral ID Status Reason Start Date Expiration Date Visits Requ ested Visits Authorized [id number] Closed 05/07/2015 05/06/2016 1 1 Encounter Details Date Type Department Care Team Description 05/13/2015 Office Visit [facility] Alton Rm, Chronic ischemic heart disease (Primary Dx); [facility]A Abnormal cardiovascular stress test; [address] [facility] HEART AND Hyper lipidemia with target LDL less than 100 [facility] [address] [place] [id number] [phone] [place], [place] [id number] Social History Tobacco Use Types Packs/Day Years [...] Sign Reading Time Taken Comments Blood Pressure 124/64 05/13/2015 8:58 AM 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 Follow-Up with Paraprofessional Aide Teacher No orders of the defined types were placed in this encounter. There are no discontinued medications. Encounter Diagnoses Name Primary? Abnormal cardiovascular stress test ??? Chronic ischemic heart disease Yes ??? Hyperlipidemia with target LDL less than 100 CURRENT MEDICATIONS: Current Outpatient Prescriptions Medication Sig [...] 2009 ??? Septoplasty 1977 ??? 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 Billingsley is a pleasant 65-year-old gentleman with a strong family history of premature atherosclerotic disease and dyslipidemia who was referred to Cardiology because of anabnormal stress test. He has been having chest discomfort with exertion for the last 1 year. The patient underwent a stress test on 04/18/2015 at which time he was able to exercise for 10 minutes on the Rafael protocol achieving a workload of 11.7 METS. He developed [address] depression at peak exercise and 1/10 chest discomfort in recovery. I sent him for a cardiac catheterization and he was found to have a calcified distal left main and LAD stenosis. Dr. Garcia placed him on metoprol ol succinate 50 mg daily and I had previously placed him on atorvastatin 40 mg daily in addition to aspirin 81 mg daily. He is planning to meet with Dr. Celis this afternoon to consider a robotic RIVAS to the LAD. Fortunately, since discharge from the Catheterization Lab and since I have seen him last, he has hadno recurrent anginal symptoms. He denies any chest pain or chest pressure at this time. He has no shortness of breath at rest; however, he has noted some slight dyspnea with exertion. As part of his preoperative evaluation, he underwent an ankle brachial index study which showed no evidence of peripheral vascular disease. He did have carotid studies performed showing a greater than 70% stenosis in the right internal carotid artery. There is a less than 50% stenosis in the left internal carotid artery. A transthoracic echocardiogram was also completed showing a visually estimated ejection fraction of 55%-60% with no regional wall motion abnormalities. The patient had no stroke in the past and no stroke-like symptoms within the last 6 months. This suggests a stable carotid plaque. Please see my separate note with his full physical examination. IMPRESSION AND PLAN: 1. Coronary artery disease -- Mr. Billingsley has a distal left main and ostial LAD disease requiring coronary artery bypass surgery. He is going to see Dr. Celis later this afternoon and I have strongly encouraged the patient to consider coronary artery bypass revascularization. Fortunately, he is asymptomatic from a cardiovascular standpoint and will remain on his excellent medical therapy unchanged whichincludes aspirin 81 mg daily, atorvastatin 40 mg daily and metoprolol succinate 50 mg daily, unchanged. 2. Chest pain - The patient has had no recurrent chest pain since being placed on beta-brisa therapy. 3. Right internal carotid artery stenosis - this is clinically asymptomatic. I will defer to Dr. Celis on the preoperative management of the carotid stenosis. He is already on excellent therapy for atherosclerotic disease and will continue his antiplatelet and statin unchanged. If the carotid is not fixed during this admission, I will plan to see the patient back in 3 month followup and will plan to refer him to Vascular Surgery at that time. Again, the patient is clinically asymptomatic. 4. Dyslipidemia - The patient has been tolerating atorvastatin 40 mg daily without any difficulties. I will plan to see Mr. Billingsley back in routine followup in 3 months to help coordinate his cardiovascular care. 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 documented in this encounter Plan of Treatment Scheduled Referrals Name Type Priority Associated Diagnoses Order S chedule Follow-Up with Referral Routine Chronic ischemic heart Exp ected: 08/11/2015 Paraprofessional Aide Teacher disease (Approximate), Expires: 2015 documented as of this encounter Visit Diagnoses Diagnosis Chronic ischemic heart disease - Primary Chronic ischemic heart disease, unspecif ied Abnormal cardiovascular stress test Other nonspecific abnormal cardiovascula r system function study Hyperlipidemia with target LDL less than 100 Other and unspecified hyperlipidemia documented in this encounter Care Teams 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
--- OUTSIDE RECORDS SUMMARY | 2022-04-28 22:59 | XMS_ITS | Clinical Summary ---
:1950 Author Organization [facility] [place] [address] Care Team Providers Name Role Phone Alfred Rios MD Primary Care Provider Allergies Active Allergy Reactions Severity Noted Date Comments Nickel Rash 08/27/2019 Medications Not on file Active Problems Not on file Encounters Date Type Specialty Care Team Description 02/04/2022 Nurse/Clinic Staff Only Immu nization/Injection (COVID-19 vacci ne) 02/04/2022 Travel from Last 3 Months Immunizations Name Administration Dates Next Due COVID-19 vaccine (Pfizer-BioNTech 30mcg/0.3mL) 12YO+ 022 ANTONETTE-SUCROSE PF MDPaul COVID-19 vaccine (Pfizer-BioNTech 30mcg/0.3mL) PF MDV 05/16 Social History Tobacco Use Types Packs/Day Years Used Date Never Assessed Sex Assigned at Date Recorded Not on file Last Filed Vital Signs Vital Sign Reading Time Taken Comments Blood Pressure 142/71 08/27/2019 6:21 PM DIE ENGRAVER Pulse 73 08/27/2019 6:21 PM DIE ENGRAVER Temperature 36.7 ??C (98.1 ??F) 08/27/2019 6:21 PM DIE ENGRAVER Respiratory Rate 18 08/27/2019 6:21 PM DIE ENGRAVER Oxygen Saturation 98% 08/27/2019 6:21 PM DIE ENGRAVER Inhaled Oxygen Concentration - - Weight 72.6 kg (160 lb) 08/27/2019 6:21 PM DIE ENGRAVER Height 167.6 cm (5' 6) 08/27/2019 6:21 PM DIE ENGRAVER Body Mass Index 25.82 08/27/2019 6:21 PM DIE ENGRAVER Plan of Treatment Health Maintenance Due Date Last Done Comments Tdap 1961 Depression screening for age 12+ 1962 BMI (ht and wt on same day) for 02/08/1968 age 18+ Hepatitis C screening for age 0702/08/1968 18-79 Tetanus booster 1970 Colonoscopy through age 75 1995 Lipids for age 45-75 1995 Zoster (shingles) series for age 0702/08/2000 50+ (1 of 2) Medicare Wellness for age 65+ 2015 Pneumococcal series for age 65+ (1 2015 - PCV) Influenza for age 65+ 03/12/2022 COVID-19 vaccine series (5 - 04/01/2022 02/04/2022, 021, Booster for Pfizer series) 10/01/2020, Additiona l history exists Results Not on filefrom Last 3 Months Insurance Payer Benefit Plan / Subscriber ID Effective Dates Phone Addre ss Type Group MEDICARE PART A MEDICARE PART A [id number] 2015-Presen ATTN: CLAIMS - HB USE ONLY HB ONLY t [address] [place] [address] MEDICARE PART B MEDICARE PART B [id number] 2015-Presen ATTN: CLAIMS - HB USE ONLY HB ONLY t [address] [place] [address] MEDICARE - PB MEDICARE PB [id number] 2015-Presen ATTN : CLAIMS USE ONLY ONLY t [address] [place] [address] BLUE CROSS BLUE CROSS OF [id number] 2019-Presen [id number] [facility] [place] [address] Guarantor Name Account Type Relation to Date of Phone Billing Address Patient Anthony Chun Personal/Famil Self 1950 [phone] [place] [address] 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
--- OUTSIDE RECORDS SUMMARY | 2022-04-28 22:59 | XMS_ITS | Encounter Summary ---
:1950 Author Organization [place] Address [address] [facility] [place] [address] Care Team Providers Name Role Phone Yi Morales MD Primary Care Provider [phone] Yi Morales MD Unavailable Yi Morales MD Unavailable Reason for Referral Diagnostic Procedure Outpatient - Closed Specialty Diagnoses / Procedures Referred By Contact Refer red To Contact Diagnoses Screen for colon cancer Yi Morales M [facility] [address] [place] [address] [place] [address] Phone: Fax: Referral ID Status Reason Start Date Expiration Date Visits Requ ested Visits Authorized [id number] Closed 04/16/2015 04/15/2016 1 1 Reason for Visit Reason Comments New Patient Establish Care Physical Blood Draw LABS. Patient is fasting Refill Request 90 day refills Encounter Details Date Type Department Care Team Description 04/16[facility]2015 [facility] a [facility] care facility (Primary Dx); Clinic Yvonne Peterson MD Screen for colon cancer; [place] [address] Need for prophylactic vaccination agains t Streptococcus pneumoniae (pneumococcus); Road, [address] [place], [place] Family history of NV (myocar dial infarction); [place] [address] Chest pain, unspecified chest pain type [address] Social History Tobacco Use Types Packs/Day Years Used Date Smoking Tobacco: Former Cigarettes Quit : 10/22/1999 Alcohol Use Standard Drinks/Week Comments Yes 0 (1 standard drink = 0.6 oz pure alcoho l) 1-2 beers daily Sex Assigned at Date Recorded Male 12/31/2020 1:31 PM CDT documented as of this encounter Last Filed Vital Signs Vital Sign Reading Time Taken Comments Blood Pressure 114/64 04/16/2015 7:34 AM CDT Pulse 72 04/16/2015 7:34 AM CDT Temperature 36.4 ??C (97.5 ??F) 04/16/2015 7:34 AM CDT Respiratory Rate 12 04/16/2015 7:34 AM CDT Oxygen Saturation 96% 04/16/2015 7:34 AM CDT Inhaled Oxygen Concentration - - Weight 77.2 kg (170 lb 4.8 oz) 04/16/2015 7:34 AM CDT Height 168.3 cm (5' 6.25) 04/16/2015 7:34 AM CDT Body Mass Index 27.28 04/16/2015 7:34 AM CDT documented in this encounter Patient Instructions Patient InstructionsJaclyn Varghese CMA - 04/16/2015 7:12 AM CDT Preventive Health Recommendations: Male Ages 65 and [...] a tetanus shot every 10 years. ??? Get a one-time shot to prevent pneumonia (Pneumovax). ??? Talk to your doctor about a shingles vaccine. ??? Talk to your doctor about the hepatitis B vaccine. Nutrition: ??? Eat at least 5 servings of fruits and vegetables each day. ??? Eat whole-grain bread, whole-wheat pasta and brown rice instead of white grains and rice. ??? For bone health: Eat calcium-rich foods or take calcium pills (500 to 600 mg) twice a day with food. Also take vitamin D (1000 IU) each day. Lifestyle ??? Exercise for at least 150 [...] screen for conditions such as glaucoma, macular degeneration, cataracts, etc??? documented in this encounter Progress Notes Yi Morales MD - 04/16/2015 7:12 AM CDT SUBJECTIVE: CC: Anthony Chun is an 65 year old male who presents for preventative health visit. Healthy Habits: ?? Do you get at least three servings of calcium containing foods daily (dairy, green leafy vegetables, etc.)? no, taking calcium and/or vitamin D supplement: no ?? Amount of exercise or daily activities, outside of work: does a little stretching ?? Problems taking medications regularly No ?? Medication side effects: No ?? Have you had an eye exam in the past two years? yes ?? Do you see a dentist twice per year? yes ?? Do you have sleep apnea, excessive snoring or daytime drowsiness?yes-daytime drowsiness and snoring Other concerns to address: none Today's PHQ-2 Score: PHQ-2 (??1998 Developed by Drs. Brody Ha, Sugar Sullivan, Devin Baker and colleagues,with an educational lola from [employer].) 04/16/2015 Q1: Little interest or pleasure in doing things 0 Q2: Feeling down, depressed or hopeless 0 PHQ-2 Total Score Interpretation - Positive if 3 or more points; Administer PHQ- 9 if positive 0 Abuse: Current or Past(Physical, Sexual or Emotional)- NO Do you feel safe in your environment - YES History Substance Use Topics ??? Smoking status: Not on file ??? Smokeless tobacco: Not on file ??? Alcohol Use: Not on file The patient does not drink >3 drinks per day nor >7 drinks per week. Last PSA: No results found for: PSA No results for input(s): CHOL, HDL, LDL, TRIG, CHOLHDLRATIO in the last 09035 hours. Reviewed orders with patient. Reviewed health maintenance and updated orders accordingly - Yes All Histories reviewed and updated in [facility]. Feeling well. Occasionally will have a short bout of chest pain when walking golf course - always happens at first hole and never reoccurs the rest of the game. Feels he's generally out of shape. Exercises irregularly, some routine stretches at work. Had a stress test about 8-10 years ago. ROS: Except as noted above C: NEGATIVE for fever, chills, change in weight I: NEGATIVE for worrisome rashes, moles or lesions E: NEGATIVE for vision changes or irritation ENT: NEGATIVE for ear, mouth and throat problems R: NEGATIVE for significant cough or SOB CV: NEGATIVE for chest pain, palpitations or peripheral edema GI: NEGATIVE for nausea, abdominal pain, heartburn, or change in bowel habits male: negative for dysuria, hematuria, decreased urinary stream, erectile dysfunction, urethral discharge M: NEGATIVE for significant arthralgias or myalgia N: NEGATIVE for weakness, dizziness or paresthesias P: NEGATIVE for changes in mood or affect Problem list, Medication list, Allergies, and Medical/Social/Surgical histories reviewed in [facility] andupdated as appropriate. OBJECTIVE: BP 114/64 mmHg Pulse 72 Temp(Src) 97.5 ??F (36.4 ??C) (Oral) Resp 12 Ht 5' 6.25 (1.683 m) Wt 170 lb 4.8 oz (77.248 kg) BMI 27.27 kg/m2 SpO2 96% EXAM: GENERAL: healthy, alert and no distress [...] normal PSYCH: mentation appears normal, affect normal/bright ASSESSMENT/PLAN: ICD-10-CM 1. Routine general medical examination at a health care facility Z00.00 Lipid panel reflex to directLDL Comprehensive metabolic panel CBC with platelets 2. Screen for colon cancer Z12.11 GASTROENTEROLOGY ADULT REFERRAL +/- PROCEDURE 3. Need for prophylactic vaccination against Streptococcus pneumoniae (pneumococcus) Z23 PNEUMOCOCCAL VACCINE,ADULT,SQ OR IM 4. Family history of NV (myocardial infarction) Z82.49 Card Cardiopulmonary stress test - adult 5. Chest pain, unspecified chest pain type R07.9 Card Cardiopulmonary stress test - adult regular exercise vision screening reports that he quit smoking about 15 years ago. He does not have any smokeless tobacco history on file. Estimated body mass index is 27.27 kg/(m^2) as calculated from the following: Height as of this encounter: 5' 6.25 (1.683 m). Weight as of this encounter: 170 lb 4.8 oz (77.248 kg). Counseling Resources: ATP IV Guidelines Pooled Cohorts Equation Calculator FRAX Risk Assessment ICSI Preventive Guidelines Dietary Guidelines for Americans, 2010 [employer] My[employer]ate Yi Morales MD [facility] documented in this encounter Nursing Notes Jaclyn Varghese CMA - 04/16/2015 8:21 AM CDT Injection given. See Immunization section for details. Jaclyn Varghese CMA Jaclyn Varghese CMA - 04/16/2015 7:38 AM CDT Chief Complaint Patient presents with ??? New Patient ??? Establish Care ??? Physical ??? Blood Draw LABS. Patient is fasting ??? Refill Request 90 day refills Initial BP 114/64 mmHg Pulse 72 Temp(Src) 97.5 ??F (36.4 ??C) (Oral) Resp 12 Ht 5' 6.25 (1.683 m) Wt 170 lb 4.8 oz (77.248 kg) BMI 27.27 kg/m2 SpO2 96% Estimated body mass index is 27.27kg/(m^2) as calculated from the following: Height as of this encounter: 5' 6.25 (1.683 m). Weight as of this encounter: 170 lb 4.8 oz (77.248 kg). BP completed using cuff size large right arm. Jaclyn Varghese CMA documented in this encounter Plan of Treatment Scheduled Referrals Name Type Priority Associated Diagnoses Order S [facility] GASTROENTEROLOGY ADULT Referral Routine Screen for colon O rdered: 04/16/2015 REFERRAL +/- PROCEDURE cancer documented as of this encounter Procedures Procedure Name Priority Date/Time Associated Comments Diagnosis LIPID REFLEX TO DIRECT Routine 04/16/2015 8:18 AM Routine gene ral Results for this LDL PANEL CDT medical examination procedur e are in at a health care the results facility section. COMPREHENSIVE Routine 04/16/2015 8:18 AM Routine general Resul ts for this METABOLIC PANEL CDT medical examination proce dure are in at a health care the results facility section. CBC WITH PLATELETS Routine 04/16/2015 8:18 AM Routine general Results for this CDT medical examination procedur e are in at a health care the results facility section. documented in this encounter Results Exercise Stress test (04/18/2015 12:01 PM CDT) Specimen (Source) Anatomical Collection Method Collection Time Re ceived Time Location / / Volume Laterality 04/18/2015 12:01 PM CDT Narrative RADIOLOGY RESULTS - 04/18/2015 1:24 PM C DT Interpretation Summary [facility] Echocardiography Laboratory [address] [place] [address] Name: Anthony Chun : 1950 Study Date: 04/18/2015 12:01 PM Age: 65 yrs Gender: Male Reason For Study: Short bouts of chest p ain. SOB History: Family History,HTN,Hyperlipidem ia Ordering Physician: YI MORALES Referring Physician: YI MORALES Performed By: Shaun Santos BSA: 1.9 m2 Height: 66 in Weight: 170 lb HR: 73 BP: 136/68 mmHg Medications: HCTZ,PRAVASTATIN Procedure Treadmill stress test. Interpretation Summary 1) Positive Rafael protcol stress test : 2mm inferolateral horizonatl ST depression at peak exercise. 1/10 chest discomfort in recovery phase. 2) Good exercise tolerance : 10:00 Rafael protocol /11.7 Mets Baseline The patient is in normal sinus rhythm. Resting ECG is normal. Stress Exercise was stopped due to fatigue. The patient exhibited no chest pain duri ng exercise. Target Heart Rate was achieved. There was a maximum 2.0mm ST segment dep ression in the lateral lead(s). There was a maximum 1.0mm ST segment dep ression in the inferior lead(s). Stress Results ?Protocol: ?? Rafael ?Maximum Predicted HR: ??155 bpm ?Target HR: 132 bpm ?% Maximum Predicted HR: ??100 % +---------+--------+-------+------+----- + : ? :Duration: Heart : ?: ? : : ??Stage ??:(mm:ss) : ??Rate : ??BPCom ?ment ? : : ? : ?: (bpm) : ?: ? : +---------+--------+-------+------+----- + : Stage 1 : ??3:00 10 ?8 ??:160/68: ? : +---------+--------+-------+------+----- + : Stage 2 : ??3:00 11 ?7 ??:164/68: ? : +---------+--------+-------+------+----- + : Stage 3 : ??3:00 13 ?7 ??:172/68: ? : +---------+--------+-------+------+----- + : Stage 4 : ??1:00 15 ?5 ??: ?? / RP P ? : +---------+--------+-------+------+----- + :Recovery : ??6:15 98 ? :118/68:1 /10 chest discomfort that resolved ?: : ? : ?: ? : ?:within first minute of recovery ?: +---------+--------+-------+------+----- + ? Stress Duration: ??10:00 mm:ss * ?Recovery Time: 6:15 mm:ss ?Maximum Stress HR: ?? 155 bpm * ME ?TS: ?11 Report approved by: Dr. Anthony melton 04/18/2015 01:24 PM Procedure Note Anthony Ballesteros MD - 04/18/2015For matting of this note might be different from the original. Interpretation Summary [facility] Echocardiography Laboratory [address] [place] [id number] Name: Anthony Chun : 1950 Study Date: 04/18/2015 12:01 PM Age: 65 yrs Gender: Male Reason For Study: Short bouts of chest p ain. SOB History: Family History,HTN,Hyperlipidem ia Ordering Physician: YI MORALES Referring Physician: YI MORALES Performed By: Shaun Santos BSA: 1.9 m2 Height: 66 in Weight: 170 lb HR: 73 BP: 136/68 mmHg Medications: HCTZ,PRAVASTATIN Procedure Treadmill stress test. Interpretation Summary 1) Positive Rafael protcol stress test : 2mm inferolateral horizonatl ST depression at peak exercise. 1/10 chest discomfort in recovery phase. 2) Good exercise tolerance : 10:00 Rafael protocol /11.7 Mets Baseline The patient is in normal sinus rhythm. Resting ECG is normal. Stress Exercise was stopped due to fatigue. The patient exhibited no chest pain duri ng exercise. Target Heart Rate was achieved. There was a maximum 2.0mm ST segment dep ression in the lateral lead(s). There was a maximum 1.0mm ST segment dep ression in the inferior lead(s). Stress Results Protocol: Rafael Maximum Predicted HR: 1 55 bpm Target HR: 132 bpm % Maximum Predicted HR: 100 % +---------+--------+-------+------+----- + : :Duration: Heart : : : : Stage :(mm:ss) : Rate : BPCom ment : : : : (bpm) : : : +---------+--------+-------+------+----- + : Stage 1 : 3:00 10 8 :160/68: : +---------+--------+-------+------+----- + : Stage 2 : 3:00 11 7 :164/68: : +---------+--------+-------+------+----- + : Stage 3 : 3:00 13 7 :172/68: : +---------+--------+-------+------+----- + : Stage 4 : 1:00 15 5 : / [facility] [id number] : +---------+--------+-------+------+----- + :Recovery : 6:15 98 :118/68:1/10 chest d iscomfort that resolved : : : : : :within first minute of recovery : +---------+--------+-------+------+----- + Stress Duration: 10:00 mm:ss * Recovery Time: 6:15 mm:ss Maximum Stress HR: 155 bpm *ME TS: 11 Report approved by: Dr. Anthony melton 04/18/2015 01:24 PM Yi Morales MD CV CARDIAC SERVICES ORDERABL ES Performing Organization Address City/State/ZIP Code Phon e Number RADIOLOGY RESULTS CBC with platelets (04/16/2015 8:18 AM CDT) athologist Signature WBC 6.1 4.0 - 11.0 [place] 10e9/L [facility] RBC Count 4.78 4.4 - 5.9 [facility] 10e12/L [facility] Hemoglobin 15.3 13.3 - [place] 17.7 g/dL [facility] Hematocrit 43.5 40.0 - [place] 53.0 % [facility] MCV 91 78 - 100 [place] fl [facility] MCH 32.0 26.5 - [place] 33.0 pg [facility] MCHC 35.2 31.5 - [place] 36.5 g/dL [facility] RDW 12.6 10.0 - [place] 15.0 % [facility] Platelet Count 303 150 - 450 [place] 10e9/L [facility] Specimen Anatomical Collection Method Collection Time Receive d Time (Source) Location / / Volume Laterality Blood specimen 04/16/2015 8:18 AM 015 8:19 (specimen) CDT AM CDT Yi Morales MD LAB - BLOOD ORDERABLES Performing Organization Address City/State/ZIP Code Phon e Number [facility] [place] [address] (ABNORMAL) Comprehensive metabolic panel (04/16/2015 8:18 AM CDT) [facility] Method Time Signature Sodium 138 133 - 144 [place] mmol/L [facility] Potassium 4.0 3.4 - 5.3 [place] mmol/L [facility] Chloride 104 94 - 109 [place] mmol/L [facility] Carbon Dioxide 26 20 - 32 [place] mmol/L [facility] Anion Gap 8 3 - 14 [place] mmol/L [facility] Glucose 101 (H) 70 - 99 [place] mg/dL [facility] Urea Nitrogen 24 7 - 30 [place] mg/dL [facility] Creatinine 1.34 (H) 0.66 - [place] 1.25 [facility] mg/dL [facility] GFR Estimate 53 (L) >60 [place] mL/min/1. CLINICS 7m2 [facility] Comment: Non GFR Calc GFR Estimate If Black 65 >60 mL/min/1.7m2 F [facility] Comment: GFR Calc Calcium 9.2 8.5 - 10.1 mg/dL [place] [facility] ICS [facility] Bilirubin Total 1.1 0.2 - 1.3 mg/dL [facility] Albumin 4.2 3.4 - 5.0 g/dL [facility] S [facility] Protein Total 7.5 6.8 - 8.8 g/dL [place] [facility] IN[facility] Alkaline Phosphatase 82 40 - 150 U/L [facility] ALT 31 0 - 70 U/L [facility] AST 22 0 - 45 U/L [facility] Specimen Anatomical Collection Method Collection Time Receive d Time (Source) Location / / Volume Laterality Blood specimen 04/16/2015 8:18 AM 015 8:19 (specimen) CDT AM CDT Yi Morales MD LAB - BLOOD ORDERABLES Performing Organization Address City/State/ZIP Code Phon e Number [facility] [address] [place] [address] (ABNORMAL) Lipid panel reflex to direct LDL (04/16/2015 8:18 AM CDT) P athologist Signature Cholesterol 200 (H) <200 mg/dL [facility] Comment: LDL Cholesterol is the primary guide to therapy. The NCEP recommends further evaluation of: patients with cholesterol greater than 200 mg/dL if additional risk facto rs are present, cholesterol greater than 240 mg/dL, triglycerides greater than 1 50 mg/dL, or HDL less than 40 mg/dL. Triglycerides 74 0 - 150 mg/dL [place] [facility] NICS [facility] HDL Cholesterol 61 >40 mg/dL [place] [facility] CS [facility] LDL Cholesterol Calculated 124 0 - 129 mg/dL [facility] Comment: LDL Cholesterol is the primary guide to therapy: LDL-cholesterol goal in high risk patients is <100 mg/dL and in very high risk patients is <70 mg/dL. VLDL-Cholesterol 15 0 - 30 mg/dL [place] C [facility] Cholesterol/HDL Ratio 3.3 0.0 - 5.0 [facility] Specimen Anatomical Collection Method Collection Time Receive d Time (Source) Location / / Volume Laterality Blood specimen 04/16/2015 8:18 AM 015 8:19 (specimen) CDT AM CDT Yi Morales MD LAB - BLOOD ORDERABLES Performing Organization Address City/State/ZIP Code Phon e Number [facility] [address] [place] [address] documented in this encounter Visit Diagnoses Diagnosis Routine general medical examination at a health care facility - Primary Screen for colon cancer Special screening for malignant neoplasm s, colon Need for prophylactic vaccination agains t Streptococcus pneumoniae (pneumococcus) Need for prophylactic vaccination agains t streptococcus pneumoniae (pneumococcus) Family history of NV (myocardial infarct ion) Family history of ischemic heart disease Chest pain, unspecified chest pain type Chest pain, unspecified chest pain type Family history of NV (myocardial infarct ion) Family history of ischemic heart disease documented in this encounter Care Teams Dietitian Consultant Relationship Specialty Start Date End Date Yi Morales MD PCP - General Family Practice 04/18/15 Yi Morales MD PCP - Assigned PCP 03/22/15 09/13/18 [id number] CARL LAWLER [id number] Yi Morales MD Assigned PCP 03/22/15 06/01/20 [id number] CARL LAWLER [id number] documented as of this encounter
--- OUTSIDE RECORDS SUMMARY | 2022-04-28 22:59 | XMS_ITS | Encounter Summary ---
:1950 Author Organization [place] Address [address] [facility] [place] [address] Care Team Providers Name Role Phone Yi Morales MD Primary Care Provider [phone] Yi Morales MD Unavailable Yi Morales MD Unavailable Reason for Visit (Routine) - Closed Specialty Diagnoses / Procedures Referred By Contact Refer red To Contact Cardiology Diagnoses 04/16-gave prep/directions to [facility] Electrocardiology Procedures CARDIAC STRESS TEST [address] [place], [place] [address] Phone: Referral ID Status Reason Start Date Expiration Date Visits Requ ested Visits Authorized [id number] Closed 04/18/2015 04/18/2016 1 1 Encounter Details Date Type Department Care Team Description 04/18/2015 Hospital Encounter Yi Hough Chest pain, unspecified chest pain type; Electrocardiolgy MD Nicholas Family history of SD (myocardial infarct ion) [address] [address] [place] [address] [place] [phone] [address] Social History Tobacco Use Types Packs/Day Years Used Date Smoking Tobacco: Former Cigarettes Quit : 10/22/1999 Alcohol Use Standard Drinks/Week Comments Yes 0 (1 standard drink = 0.6 oz pure alcoho l) 1-2 beers daily Sex Assigned at Date Recorded Male 12/31/2020 1:31 PM CDT documented as of this encounter Medications at Time of Discharge Medication Sig Dispensed Refills Start Date End Date hydrochlorothiazide Take 25 mg by 0 (HYDRODIURIL) 25 MG tablet mouth daily Meloxicam (MOBIC PO) 0 04/12 pravastatin (PRAVACHOL) 20 MG Take 20 mg by 0 04/22/2015 tablet mouth daily documented as of this encounter Progress Notes Shaun Santos - 04/18/2015 12:15 PM CDT TM stress test complete. documented in this encounter Plan of Treatment Not on filedocumented as of this encounter Procedures Procedure Name Priority Date/Time Associated Diagnosis Comme nts EXERCISE STRESS Routine 04/18/2015 12:01 PM Chest pain, Resul ts for this TEST CDT unspecified chest procedure are in pain type the results Family history of SD section . (myocardial infarction) documented in this encounter Results Exercise Stress test (04/18/2015 12:01 PM CDT) Specimen (Source) Anatomical Collection Method Collection Time Re ceived Time Location / / Volume Laterality 04/18/2015 12:01 PM CDT Narrative RADIOLOGY RESULTS - 04/18/2015 1:24 PM C DT Interpretation Summary [facility] Echocardiography Laboratory [address] [place] [id number] Name: Anthony Chun : 1950 Study Date: [...] 15 ?5 ??: ?? / RP P ?? 26,660 ? : +---------+--------+-------+------+----- + :Recovery : ??6:15 98 ? :118/68: chest discomfort that resolved ?: : ? [...] be different from the original. Interpretation Summary [facility] Echocardiography Laboratory [address] [place] [address] Name: Anthony Chun : 1950 Study Date: [...] 4 : 1:00 15 5 : / [facility] 26,660 : +---------+--------+-------+------+----- + :Recovery : 6:15 98 :118/68:1 home mead that resolved : : : : : [...] RESULTS documented in this encounter Visit Diagnoses Diagnosis Chest pain, unspecified chest pain type Family history of SD (myocardial infarct ion) Family history of ischemic heart disease documented in this encounter Care Teams Electrical Installation Supervisor Relationship Specialty Start Date End Date Yi Morales MD PCP - General Family Practice 04/18/15 Yi Morales MD PCP - Assigned PCP 03/22/15 09/13/18 [id number] [address] [id number] Yi Morales MD Assigned PCP 03/22/15 06/01/20 [id number] CARL LAWLER [id number] documented as of this encounter
--- OUTSIDE RECORDS SUMMARY | 2022-04-28 22:59 | XMS_ITS | Encounter Summary ---
:1950 Author Organization [place] Address [address] [place] [address]. [place] [address] Care Team Providers Name Role Phone Alfred Rios MD Unavailable Alfred Rios MD Unavailable Reason for Visit Reason Onset Date Comments Erroneous encounter-disregard 04/16/2015 Encounter Details Date Type Department Care Team Description 04/16/2015 Telephone [facility] Yvonne Peterson MD encounter-disregard [address] [place] [address] [place], [place] [phone] (Wo rk) [address] [phone] Social History Tobacco Use Types Packs/Day Years Used Date Smoking Tobacco: Former Cigarettes Quit : 10/22/1999 Alcohol Use Standard Drinks/Week Comments Yes 0 (1 standard drink = 0.6 oz pure alcoho l) 1-2 beers daily Sex Assigned at Date Recorded Male 12/31/2020 1:31 PM CDT documented as of this encounter Miscellaneous Notes Telephone Encounter - Roro Elizabeth RN - 04/16/2015 9:16 AM CDT Error Roro Elizabeth RN documented in this encounter Plan of Treatment Not on filedocumented as of this encounter Visit Diagnoses Not on filedocumented in this encounter Care Teams Opinion Polls Survey Worker Relationship Specialty Start Date End Date Alfred Rios MD PCP - Assigned PCP 03/22/15 09/13/18 [address] CARL LAWLER [id number] Alfred Rios MD Assigned PCP 03/22/15 06/01/20 [id number] CARL LAWLER [id number] documented as of this encounter
--- OUTSIDE RECORDS SUMMARY | 2022-04-28 23:00 | XMS_ITS | Encounter Summary ---
:1950 Author Organization [facility] Address [address] [place] [address] Care Team Providers Name Role Phone Alfred Rios MD Primary Care Provider [phone] Alfred Rios MD Unavailable Anthony Ballesteros MD Unavailable Reason for Visit Diagnostic Imaging NM (Routine) - Closed Specialty Diagnoses / Procedures Referred By Contact Refer red To Contact Diagnoses Coronary artery disease involving eklutna coronary artery of eklutna heart, unspecified whether angina present Essential hypertension Dyslipidemia Anthony Ballesteros MD Procedures NM MPI w Lexiscan NM Adenosine stress test (nuc card) [address] [place] [id number] Referral ID Status Reason Start Date Expiration Date Visits Requ ested Visits Authorized [id number] Closed 01/29/2022 01/29/2023 4 4 Encounter Details Date Type Department Care Team Description 02/10/2022 Hospital Encounter M [facility] Anthony Ballesteros MD [address] [place], [place] [address] [id number] [place] [address] [phone] (Wo rk) Social History Tobacco Use Types [...] coronary bypass 3 doses. If graft of eklutna heart symptoms persist 5 without angina pectoris minutes after 1st dose call 911. documented as of this encounter Plan of Treatment Not on filedocumented as of this encounter Procedures Procedure Name Priority Date/Time Associated Diagnosis Comme nts NM MPI WITH Routine 02/10/2022 1:38 PM Coronary artery Result s for this LEXISCAN CDT disease involving procedure are in eklutna coronary the results artery of eklutna section. heart, unspecified whether angina present Essential hypertension Dyslipidemia documented in this encounter Results NM MPI w Lexiscan (02/10/2022 1:38 PM CDT) [facility] gist Method Time Signature Target HR [...] rest on 02/10/2022. Nuclear Study Quality The clinical quality rn images demonstrate a pical thinning. 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
== END 2022-04-28 22:50 | disposition home or self-care (01) ==
LOC: ED 22:50
PROVIDERS: Emergency Provider Family Medicine; PCP Family Medicine
DX: L76.22 Postprocedural hemorrhage of skin and subcutaneous tissue following other procedure (principal); Y83.8 Other surgical procedures as the cause of abnormal reaction of the patient, or of later complication, without mention of misadventure at the time of the procedure
CPT/HCPCS: 99282

== ENCOUNTER 2022-08-20 10:17 | Outpatient (CLI) | payer MEDICARE, SELFPAY ==
--- NOTE | 2022-08-20 11:00 | CRLHL7_ITS ---
For Patients: As a result of the Century Cures Act, medical imaging exams and procedure reports are released immediately into your electronic medical record. You may view this report before your referring provider. If you have questions, please contact your health care provider. INDICATION: Screening for abdominal aortic aneurysm TECHNIQUE: Ultrasound aorta with color Doppler analysis. COMPARISON: None FINDINGS: The proximal abdominal aorta measures 1.6 centimeter x 2.5 centimeter, mid aorta measures 1.8 centimeter x 2.0 centimeter, distal aorta measures 1.6 centimeter x 1.4 centimeter, right common iliac artery measures 1.0 centimeter x 1.1 centimeter, and the left common iliac artery measures 1.0 centimeter x 0.9 centimeter. There are no periaortic abnormalities evident. IMPRESSION: Normal ultrasound of the abdominal aorta. No sign of aneurysm. Dictated by Federico Lira MD @ 08/20/2022 12:15:22 PM (Electronically Signed)
== END 2022-08-20 10:18 | disposition home or self-care (01) ==
LOC: US 10:17
PROVIDERS: PCP Family Medicine; Visit Provider Family Medicine
DX: Z13.6 Encounter for screening for cardiovascular disorders (principal)
CPT/HCPCS: 76706; 80053; 80061; 84153

== ENCOUNTER 2022-11-02 14:11 | Outpatient (CLI) | payer MEDICARE, SELFPAY ==
--- NOTE | 2022-11-02 14:30 | MR_ITS ---
[address] [address] Phone:?[phone] Fax:?[phone] Referring Physician Information: Pj Marino M.D. [id number] [facility] [address] Phone:?[phone] Fax:?[phone] Patient:?Anthony Chun D.O.B:?1950 Sex:?Male Phone:?[phone] [facility] MRN:?[id number] Exam Date:?11/02/2022 ? EXAM: MRI of the RIGHT SHOULDER, without contrast CLINICAL HISTORY: Chronic right shoulder pain and weakness. COMPARISONS: Plain radiographs 10/23/2022. TECHNICAL: MRI sequences of the right shoulder: Axials: PD, T2 Coronals: PD, STIR, T2 Sagittals: PD, T2 SEDATION: None CONTRAST: None FINDINGS: Bones: No fracture or suspicious bone marrow signal abnormality. Coracoacromial arch: Acromion: No os acromiale. Type I-II acromion. Acromiohumeral space: Markedly narrowed in the setting of complete full- thickness tears of the supraspinatus and infraspinatus tendons. Coracohumeral space: The bony distance is unremarkable. Acromioclavicular joint: Moderate degenerative changes with moderate inferior osteophytosis/hypertrophy. Coracoclavicular ligament: The coracoclavicular ligament is intact. Rotator cuff muscles/tendons: Supraspinatus and infraspinatus: There are complete full-thickness tears of the supraspinatus and infraspinatus tendon insertions with maximal proximal/medial tendon retraction medial to the level of the glenoid, marked narrowing of the acromiohumeral bony distance, slight atrophy of the supraspinatus muscle, and marked atrophy of the infraspinatus muscle. Teres minor: The teres minor tendon and muscle are intact. Subscapularis: 2.5 cm in craniocaudad dimension full-thickness tear of the superior and mid portions of the subscapularis tendon with proximal/medial tendon retraction to the level of the glenoid and mild atrophy of the superior and mid portions of the subscapularis muscle. Labrum and glenohumeral joint: Fraying and tearing of the entire labrum. 5 x 4 x 4 mm inferior paralabral cyst best seen on coronal series 4 image 18. Trace glenohumeral joint effusion. The cartilage is not well evaluated by this nonarthrogram study. No convincing evidence of capsular edema or thickening although evaluation is suboptimal because of lack of joint distention. Proximal biceps tendon, long head and short heads: High-grade partial tearing of the proximal long head of the biceps tendon, which is medially dislocated from the bicipital groove. The short head is intact. IMPRESSION: 1. Complete full-thickness tears of the supraspinatus and infraspinatus tendon insertions with maximal proximal/medial tendon retraction medial to the level of the glenoid, marked narrowing of the acromiohumeral bony distance, slight atrophy of the supraspinatus muscle, and marked atrophy of the infraspinatus muscle. 2. 2.5 cm in craniocaudad dimension full-thickness tear of the superior and mid portions of the subscapularis tendon with proximal/medial tendon retraction to the level of the glenoid and mild atrophy of the superior and mid portions of the subscapularis muscle. 3. High-grade partial tearing of the proximal long head of the biceps tendon, which is medially dislocated from the bicipital groove. 4. Fraying and tearing of the entire labrum. 5 x 4 x 4 mm inferior paralabral cyst. 5. Moderate degenerative changes of the acromioclavicular joint with moderate inferior osteophytosis/hypertrophy. 6. Trace glenohumeral joint effusion. RCB Electronically signed on 11/02/2022 4:57:00 PM by Lee Calloway M.D.
== END 2022-11-02 14:12 | disposition home or self-care (01) ==
PROVIDERS: PCP Family Medicine; Visit Provider Orthopaedic Surgery Sports Medicine
DX: M25.511 Pain in right shoulder (principal); M75.101 Unspecified rotator cuff tear or rupture of right shoulder, not specified as traumatic; S43.491A Other sprain of right shoulder joint, initial encounter; M25.411 Effusion, right shoulder
CPT/HCPCS: 73221

== ENCOUNTER 2022-11-25 13:45 | Outpatient (RCR) | payer MEDICARE, SELFPAY ==
--- NOTE | 2022-10-27 10:09 | PT.OPE ---
PT [facility] Eval PT [facility] Outpatient Eval Start: 10/21/22 12:54 Freq: Status: Active Protocol: Document 10/21/22 12:54 HN (Rec: 10/21/22 17:14 HN [id number]) E-signed By Airam Khalil DPT Physical Therapy Outpatient Evaluation Insurance Information Recert Due Date 12/29/22 Insurance Name Medicare B Insurance Information/Comments Medicare Advantage Blue medicare Medical Diagnosis Radiculopathy, lumbar region M54. 16 Low back pain, unspecified M54 . 50 Treating Diagnosis Low back pain, unspecified M54 . 50 Referring MD Lopez Garcia MD Subjective Subjective Patient is a 72 year old male with chronic low back pain. Patient reports major improvement in symptoms in 2015 after injection,. Symptoms exacerbated in past 6 months. Pain starts in low back, reports increased pain after standing and walking. Radiating symptoms into bilateral gluteals. Occasional radicular symptoms into LE, normally stops at posterior knee but occasionally goes to ankle, feet feel like they are asleep. 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, 32 hours a week Precautions Treatment Precautions/Contraindications HTN, HLD, CAD Weight Bearing Status Non-Weight Bearing Therapy Limitations/Systems Review Not Limited Objective Other/Pertinent Objective BP: 129/70 65 bpm 95% Lumbar range of motion (% full range of motion) Flexion: 100 Extension: 100 Left sidebendin Right sidebendin Left rotation: 100 Right rotation: 75 increased pain Hip range of motion (degrees): Grossly intact with decreased hip internal rotation Manual muscle testing: Hip flexion: 5/5 L , 5/5 R Hip abduction: 4/5 L , 4/5 R Hip adduction: 3+/5 L , 3+/5 R Knee extension: 5/5 L , 5/5 R Knee flexion: 5/5 L , 5/5 R Special tests: Slump: negative bilaterally Straight leg raise: negative bilaterally NADIYA: positive on L FADIR: negative SCOUR: positive bilaterally Laslett cluster: negative Repeated extension: increased symptoms in bilaterally Repeated flexion: resolved symptoms Sensation/Reflexes: Achilles reflex: absent with testing today Sensation: denies changes in sensation Babinski: inconclusive, patient feet are ticklish, Joint mobility: Lumbar PA mobilizations: hypomobile and painful, increased L4/L5 Palpation: increased pain along R lumbar paraspinals and lateral glutes Functional Test Performed & Score Modified Oswestry Low Back Pain Disability Questionnaire: = 22.0 % Assessment Assessment/Impression Patient is a 72 year old with complaints of low back pain and radiating symptoms in bilateral glutes with occasional radicular symptoms into feet. Patient demonstrates impaired lumbar range of motion, mild decrease in strength, radicular pain consistent with lumbar stenosis. The impairments impact the patients prolonged standing and ambulation. Patient will benefit from skilled physical therapy to address the impairments and activity limitations listed above. Prognostic factors include chronic nature of symptoms, age, number of comorbidities. Primary Functional Limitations prolonged standing and ambulation, ascending/ descending stairs, completion of ADLs and IADLs including doing dishes, walking dog, and grocery shopping Plan of Care Rehabilitation Potential Good Physical Therapy Goals Short term goals (5 weeks, 05/03) 1. Patient will tolerate standing >8 minutes with no increase in pain order to complete ADLs including doing the dishes. 2. Patient will report <7/10 pain at worst in order to demonstrate decreased pain and disability related to symptoms 3. 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 Patient will demonstrate 12 point improvement in Oswestry Disability Index in order to demonstrate decreased pain and disability related to low back pain. 2. Patient will tolerate standing 15 minutes or greater with no increase in pain in order to improve tolerance with grocery shopping. 3. Patient will tolerate walking 1 mile or greater in order to walk dog with no rest breaks. 4. Patient will report <5/10 pain at worst in order to demonstrate decreased pain and disability related to symptoms. 5. Patient will demonstrate independence with HEP in order to manage symptoms independently at home. Coordination/Communication With Referral Source Treatment Plan/Direct Interventions Electrical Stimulation,Gait Training,Joint Mobilization, Manual Therapy,Neuromuscular Re-ed,Self-Care/Home Management,Therapeutic Activities,Therapeutic Exercises,Traction (Mechanical ) Frequency/Duration 1-2x/week for 8-10 weeks Patient Will Be Discharged From Therapy Completion of LTG(s),Skills Plateau,Independent w/HEP Evaluation Billing Untimed Code Treatment Minutes 27 Complexity Low Certification Information Initial Certification Date 10/21/22 Ending Certification Date 12/29/22 Provider Signature Shows Agreement With POC & Medical Necessity Physician Signature & Date Requested Please Sign/Date Here Physician Comment/Change : Physician NPI Number #
== END 2023-01-18 15:59 | disposition home or self-care (01) ==
PROVIDERS: PCP Family Medicine; Visit Provider Family Medicine
DX: M54.16 Radiculopathy, lumbar region (principal); M54.50 Low back pain, unspecified; G89.29 Other chronic pain; S46.211A Strain of muscle, fascia and tendon of other parts of biceps, right arm, initial encounter; M19.011 Primary osteoarthritis, right shoulder; M75.101 Unspecified rotator cuff tear or rupture of right shoulder, not specified as traumatic; Z98.890 Other specified postprocedural states; Z51.89 Encounter for other specified aftercare
CPT/HCPCS: 97012; 97110; 97140; 97161

== ENCOUNTER 2023-10-19 10:00 | Outpatient (CLI) | payer MEDICARE, SELFPAY ==
--- OUTSIDE RECORDS SUMMARY | 2023-11-08 14:16 | XMS_ITS | Clinical Summary ---
Author Name Unknown Organization [place] Address [address] [place] [address] Care Team Providers Care Java Security Architect Name Role Phone Alfred Rios MD Primary Care Provider + Alfred Rios MD Unavailable [phone] Dixie Bridges Unavailable [phone] Anthony Ballesteros MD Unavailable [phone] Allergies Active Allergy Reactions Criticality Noted Date Comments Nickel Rash Low 04/16/2015 Medications Medication Sig Dispensed Refills Start Date End Date Status aspirin 81 MG chewable tabletIndications:C hronic ischemic heart disease Take 1 tablet (81 mg) by mouth daily 30 tablet 12 07/31/2015 Active albuterol (PROAIR HFA/PROVENTIL HFA/VENTOLIN HFA) 108 (90 Base) MCG/ACT inhalerIndications: Mild intermittent asthma without complication INHALE 2 PUFFS INTO THE LUNGS EVERY 6 HOURS 8.5 g 1 02/03/2022 Active naproxen (NAPROSYN) 500 MG tabletIndications:B ilateral hip pain TAKE 1 TABLET (500 MG) BY MOUTH 2 TIMES DAILY NEEDED FOR MODERATE PAIN 60 tablet 1 12/04/2022 Active gabapentin (NEURONTIN) 300 MG capsule Take 300 mg by mouth 2 times daily 03/16/2023 Active metoprolol tartrate (LOPRESSOR) 50 MG tabletIndications:C oronary artery disease involving [place] coronary artery of [place] heart, unspecified whether angina present Take 1 tablet (50 mg) by mouth 2 times daily 90 tablet 11 06/09/2023 Active nitroGLYcerin (NITROSTAT) 0.4 MG sublingual tabletIndications:C oronary artery disease involving [place] coronary artery of [place] heart, unspecified whether angina present For chest pain place 1 tablet under the tongue every 5 minutes for 3 doses. If symptoms persist 5 minutes after 1st dose call 911. 90 tablet 11 06/09/2023 Active clopidogrel (PLAVIX) 75 MG tabletIndications:C oronary artery disease involving [place] coronary artery of [place] heart, unspecified whether angina present Take 300 mg (4 tablets) once on the day you discontinue Brilinta, then continue at 75 mg daily. 94 tablet 3 07/13/2023 Active Additional Information Patient taking differently: 75 mg EVERY MORNING, (No instructions reported), Reported on 07/30/2023 atorvastatin (LIPITOR) 80 MG tabletIndications:H yperlipidemia with target LDL less than 100 Take 1 tablet (80 mg) by mouth daily 90 tablet 3 07/30/2023 Active Active Problems Problem Noted Date Diagnosed Date Essential hypertension 06/16/2023 Exertional angina (H24) 06/16/2023 Dyspnea 06/16/2023 Status post coronary angiogram 06/16/2023 Coronary artery disease invo lving s[place] coronary artery of [place] heart, unspecified whether angina present 06/16/2023 Peripheral vascular disease (H24) 04/14/2019 Post-traumatic osteoarthritis of left knee 09/12 Mild intermittent asthma without complication Anemia due to blood loss, acute 05/30/2015 Fluid overload 05/30/2015 S/P CABG (coronary artery bypass graft) 05/25/20 15 Coronary artery disease 05/22/2015 Coronary artery disease without angina pectoris 05/08/2015 Hyperlipidemia with target LDL less than 100 Essential hypertension, benign 05/08/2015 Lumbar radiculopathy 05/08/2015 Facet arthritis of lumbar region 05/08/2015 Cardiac ischemia 04/24/2015 Overview: Positive stress test 04/18/15 Alfred Rios MD CRF (chronic renal failure), stage 2 (mild) 01/2015 Family history of NE (myocardial infarction) 12/2014 Resolved Problems Problem Noted Date Diagnosed Date Resolved Date Bilateral low back pain without sciatica 09/04/2020 10/02/2020 Left knee pain 09/21/2018 01/25/2019 Hip pain, left 09/21/2018 01/25/2019 Hyperlipidemia with target LDL less than 130 5 05/08/2015 Overview: Diagnosis updated by automated process. Provider to review and confirm. HTN, goal below 140/90 04/16/201505/08 Encounters Date Type Department Care Team Description 10/07/2023 MyC Medical Advice [facility] [id number] [place] [address] [address] [place] [address] Ryland Moseley 09/30/2023 MyC Medical Advice [facility] [address] [place] [phone] Savage Hayes MA 09/30/2023 [facility] [address] [place] [address] Alfred Rios MD 09/07/2023 MyC Medical Advice [facility] [address] [place] [address] [address] [place] [address] Anthony Ballesteros MD 08/26/2023 2:57 PM VP GENETIC - 08/26/2023 11:59 PM VP GENETIC Hospital Encounter [facility] Cardiac and Pulmonary [address] [address] Anthony Ballesteros MD 3, Rh Cardiac Rehab Discharge Disposition: Home or Self Care 08/25/2023 1:57 PM VP GENETIC - 08/25/2023 11:59 PM VP GENETIC Hospital Encounter [facility] Cardiac [facility] Pulmonary [address] [address] Anthony Ballesteros MD 2, Rh Cardiac Rehab Discharge Disposition: Home or Self Care 08/25/2023 Travel 08/23/2023 1:55 PM VP GENETIC - 08/23/2023 11:59 PM VP GENETIC Hospital Encounter [facility] Cardiac and Pulmonary Rehabilitation [address] [place] [phone] Anthony Ballesteros MD 2, Rh Cardiac Rehab Discharge Disposition: Home or Self Care 08/23/2023 Travel 08/18/2023 1:55 PM VP GENETIC - 08/18/2023 11:59 PM VP GENETIC Hospital Encounter [facility] Cardiac and Pulmonary Rehabilitation [address] [address] Anthony Ballesteros MD 2, Rh Cardiac Rehab Discharge Disposition: Home or Self Care 08/18/2023 Travel 08/16/2023 1:57 PM VP GENETIC - 08/16/2023 11:59 PM VP GENETIC Hospital Encounter [facility] Cardiac [facility] Pulmonary [address] [address] Anthony Ballesteros MD 2, Rh Cardiac Rehab Discharge Disposition: Home or Self Care 08/16/2023 Travel 08/11/2023 1:55 PM VP GENETIC - 08/11/2023 11:59 PM VP GENETIC Hospital Encounter [facility] Cardiac [facility] Pulmonary Rehabilitation [address] [phone] Anthony Ballesteros MD 2, Rh Cardiac Rehab Discharge Disposition: Home or Self Care 08/11/2023 Travel 08/09/2023 1:53 PM VP GENETIC - 08/09/2023 11:59 PM VP GENETIC Hospital Encounter [facility] Cardiac and Pulmonary Rehabilitation [address] [place] [phone] Anthony Ballesteros MD 2, Rh Cardiac Rehab Discharge Disposition: Home or Self Care 08/09/2023 Travel from Last 3 Months Immunizations Name Administration Dates Next Due COVID-19 MONOVALENT 12+ (Pfizer) 10/01/2020,0308/2020 Influenza (High Dose) 3 valent vaccine Influenza Vaccine 65+ (Fluzone HD) 04/26/2021 Pneumo Conj 13-V (2010&after) 04/16/2015 Pneumococcal 23 valent 07/03/2021,06/17/2016 Tdap (Adult) Unspecified Formulation 07/12/2011 Varicella 03/27/2014 Family History Medical History Relation Comments Cerebrovascular Disease Brother Coronary Artery Disease Brother Stroke Hyperlipidemia Brother Cancer Father kidney Coronary Artery Disease Father Other Cancer Father Cerebrovascular Disease Mother Coronary Artery Disease Mother Strokes Hyperlipidemia Mother Hyperlipidemia Sister 1 Family History Negative Son 1 Family History Negative Son 2 Relation Status Comments Brother Alive Father Maternal Grandfather Maternal Grandmother Mother Paternal Grandfather Paternal Grandmother Sister 1 Alive Sister 2 Alive Son 1 Alive Son 2 Alive Social History Tobacco Use Types Packs/Day Years Used Date Smoking Tobacco: Former Cigarettes 1 35 0 10/21/1964 - 10/22/1999 Smokeless Tobacco: Never Alcohol Use Standard Drinks/Week Comments Yes 0 (1 standard drink = 0.6 oz pur e alcohol) One beer most days. PHQ-2 Answer Date Recorded PHQ-2 Score 0 07/30/2023 Adolescent Education Answer Date Record ed Getting School Help Needed Not on file 04/02 Sex and Gender Information Value Date Recorded Sex Assigned at Male 12/31/2020 1:31 PM CDT Gender Identity Male 08/26/2020 6:37 PM VP GENETIC Sexual Orientation Straight 08/26/2020 6: 37 PM VP GENETIC Last Filed Vital Signs Vital Sign Reading Time Taken Comments Blood Pressure 146/82 07/30/2023 8:10 AM VP GENETIC Med s @7AM Pulse 64 07/30/2023 8:10 AM VP GENETIC Temperature 36.3 ??C (97.4 ??F) 06/16/2023 8:46 AM CS T Respiratory Rate 16 06/16/2023 4:30 PM VP GENETIC Oxygen Saturation 97% 07/30/2023 8:10 AM VP GENETIC Inhaled Oxygen Concentration - - Weight 73.2 kg (161 lb 6.4 oz) 07/30/2023 8:10 A M VP GENETIC Height 167.6 cm (5' 6) 07/30/2023 8:10 AM VP GENETIC Body Mass Index 26.05 07/30/2023 8:10 AM VP GENETIC Plan of Treatment Upcoming Encounters Date Type Department Care Team (Late st Contact Info) Description 01/27/2024 8:30 AM CDT [facility] [address] [place] [phone] 01/28/2024 9:00 AM CDT Office Visit [facility] [address] [place] [address] Natalia Forman APRN CNP [place], Anthony Bernal MD [address] [place] [address] Health Maintenance Due Date Last Done Comments ASTHMA ACTION PLAN 1950 CT COLONOGRAPHY 1950 FIT 1950 FLEX SIG 1950 sDNA (Cologuard) 1950 RSV VACCINE ( & 60+) (1 - 1-dose 60+ series) 2010 ZOSTER IMMUNIZATION (2 of 3) 05/22/2014 03/27/2014 ASTHMA CONTROL TEST 07/02/2021 12/31/2020, 05/24/2020, 04/14/2019 ANNUAL REVIEW OF HM ORDERS 12/31/2021 12/31/2020 FALL RISK ASSESSMENT 07/03/2022 07/03/2021, 05/24/2020, 09/12/2018, Additional history exists MEDICARE ANNUAL WELLNESS VISIT 07/03/2022 07/03/2021, 05/24/2020, 09/12/2018, Additional history exists COVID-19 Vaccine (2022- season) 2023 02/04/2022, 02/04/2022, 05/16/2021, Additional history exists INFLUENZA VACCINE (#1) 2023 , 04/26/2021, 04/11/2020, Additional history exists BMP 06/16/2024 06/16/2023, 06/12, 05/24/2020, Additional history exists LIPID 06/16/2024 06/16/2023, 06/12, 05/24/2020, Additional history exists GLUCOSE 06/16/2026 06/16/2023, 06/12, 05/24/2020, Additional history exists ADVANCE CARE PLANNING 07/07/2026 07/07/2021 , 05/27/2020, 04/16/2015 COLONOSCOPY 07/24/2026 07/24/2016, 07/24/2016 COLORECTAL CANCER SCREENING 07/24/2026 DTAP/TDAP/TD IMMUNIZATION (3 - Td or Tdap) 08/13/2032 08/13/2022, 07/12/2011, 07/12/2011 URINALYSIS Completed 05/06/2015 HEPATITIS C SCREENING Completed 06/17/2016 AORTIC ANEURYSM SCREENING (SYSTEM ASSIGNED) Completed 06/25/2016 Pneumococcal Vaccine: 65+ Years Completed 07/03/2021, 06/17/2016, 04/16/2015 PHQ-2 (once per calendar year) Completed 07/30/2023, 06/09/2023, 07/03/2021, Additional history exists HPV IMMUNIZATION Aged Out No longer e ligible based on patient's age to complete this topic IPV IMMUNIZATION Aged Out No longer e ligible based on patient's age to complete this topic MENINGITIS IMMUNIZATION Aged Out No l onger eligible based on patient's age to complete this topic MICROALBUMIN Discontinued RSV MONOCLONAL ANTIBODY Aged Out No l onger eligible based on patient's age to complete this topic Medical Devices Implanted Type Area Human Factors Engineer Device Identifier Shelf Expiration Date Model / Serial / Lot Stent Coronary Brendan Synergy Xd Mr [id number] - [id number] Implanted:Qty: 1 on 06/16/2023 at [facility] Stent Drug Eluting (BRENDAN) [employer] 09/28/2024 [id number] / / [id number] Procedures Procedure Name Priority Date/Time Associated Diagnosis Comments LIPID PROFILE STAT 06/16/2023 9:09 AM VP GENETIC BASIC METABOLIC PANEL STAT 06/16/2023 9:09 AM VP GENETIC COLONOSCOPY Routine 07/24/2016 11:06 AM VP GENETIC US ABDOMINAL AORTA Routine 06/25/2016 10 :30 AM VP GENETIC Personal history of tobacco use, presenting hazards to health HEPATITIS C SCREEN REFLEX TO HCV RNA QUANT AND GENOTYPE Routine 06/17/2016 9:23 AM VP GENETIC Need for hepatitis C screening test UA MACROSCOPIC WITH REFLEX TO MICRO AND CULTURE Routine 05/06/2015 2:35 PM CDT Status post coronary angiogram from Last 3 Months or Most Recently Relevant to Health Maintenance Results * Lipid Profile (06/16/2023 9:09 AM VP GENETIC) Cholesterol 151 <200 mg/dL 06/17/2023 1:57 AM VP GENETIC [facility] Triglycerides 65 <150 mg/dL 06/17/2023 1:57 AM VP GENETIC [facility] Direct Measure HDL 60 >=40 mg/dL 2022 1:57 AM VP GENETIC [facility] LDL Cholesterol Calculated 78 <=100 mg/dL 06/17/2023 1:57 AM VP GENETIC [facility] Non HDL Cholesterol 91 <130 mg/dL 06/17/2023 1:57 AM VP [facility]ETIC [facility] Blood STRUCTURE OF LEFT UPPER LIMB / Unknown Venipuncture / Unknown 06/16/2023 9:09 AM VP GENETIC 06/16/2023 9:14 AM VP GENETIC Narrative [facility] - 06/17/2023 1:57 AM VP GENETIC Cholesterol Desirable: ??<200 mg/dL Triglycerides Normal: ??Less than 150 mg/dL Borderline High: ??150-199 mg/dL High: ??200-499 mg/dL Very High: ??Greater than or equal to 500 mg/dL Direct Measure HDL Female: ??Greater than or equal to 50 mg/dL Male: ??Greater than or equal to 40 mg/dL LDL Cholesterol Desirable: ??<100mg/dL Above Desirable: ??100-129 mg/dL Borderline High: ??130-159 mg/dL High: ??160-189 mg/dL Very High: ??>= 190 mg/dL Non HDL Cholesterol Desirable: ??130 mg/dL Above Desirable: ??130-159 mg/dL Borderline High: ??160-189 mg/dL High: ??190-219 mg/dL Very High: ??Greater than or equal to 220 mg/dL Anhtony Ballesteros MD LAB - BLOOD ORDER NIRU [facility] Core Lab [address] [facility], [address] [place] [phone], [facility] [phone] * (ABNORMAL) Basic metabolic panel (06/16/2023 9:09 AM [facility]) Sodium 142 135 - 145 mmol/L 06/16/2023 9:35 AM [facility] Comment:Reference intervals for this test were updated on 04/06/2023 to more accurately reflect our healthy population. There may be differences in the flagging of prior results with similar values performed with this method. Interpretation of those prior results can be made in the context of the updated reference intervals. Potassium 4.3 3.4 - 5.3 mmol/L 06/16/2023 9:35 AM [facility] Chloride 107 98 - 107 mmol/L 06/16/2023 9:35 AM [facility] Carbon Dioxide (CO2) 24 22 - 29 mmol/L 06/16/2023 9:35 AM [facility] Anion Gap 11 7 - 15 mmol/L 06/16/2023 9:35 AM [facility] Urea Nitrogen 20.3 8.0 - 23.0 mg/dL 06/16/2023 9:35 AM [facility] Creatinine 1.09 0.67 - 1.17 mg/dL 06/16/2023 9:35 AM [facility] GFR Estimate 72 >60 mL/min/1. 73m2 06/16/2023 9:35 AM [facility] Calcium 9.2 8.8 - 10.2 mg/dL 06/16/2023 9:35 AM [facility] Glucose 113(H) 70 - 99 mg/dL 06/16/2023 9:35 AM [facility] Blood STRUCTURE OF LEFT UPPER LIMB / Unknown Venipuncture / Unknown 06/16/2023 9:09 AM VP [facility]ETIC 06/16/2023 9:14 AM [facility] Anthony Ballesteros MD LAB - BLOOD ORDER [facility] [address] 1[address] floor, [address] [place] [address], [place] [phone] * COLONOSCOPY (07/24/2016 11:06 AM VP GENETIC) COLONOSCOPY [facility] Patient Name: Anthony Chun ? Procedure Date: 07/24/2016 11:06 AM ? Date of : 1950 ?Admit Type: Outpatient Age: 66 ? Gender: Male Attending MD: Joi Ludwig MD ? Total Sedation Time: Instrument Name: 124 ? Procedure: ?Colonoscopy Indications: ?Screening for colorectal malignant neoplasm Providers: ?Joi Ludwig MD (Doctor) Referring MD: ? Alfred Rios MD (Referring MD) Medicines: ?Midazolam 2 mg IV, Fentanyl 100 [...] nurse in the procedure room. Mental Status ?Examination: alert and oriented. Airway ?Examination: normal oropharyngeal [...] monitored continuously. The ?Olympus Adult Colonoscope Model #CF-RT268M, ?[place]#124, SN#[id number] was introduced through the ?anus and advanced to the cecum, identified by ?appendiceal orifice and ileocecal valve. The ?colonoscopy was performed without difficulty. The ?patient tolerated the procedure well. The quality ?of the bowel preparation was good. ? Findings: ? External hemorrhoids were found during retroflexion and were small. ? The exam was otherwise without abnormality. ? Impression: ? - External hemorrhoids. ?- The examination was otherwise normal. Recommendation: ? - Repeat colonoscopy in 10 years for screening ?purposes. ? Electronically signed by Jie Ludwig M.D. _ Joi Ludwig MD 07/24/2016 11:46 AM I was physically present for the entire viewing portion of the exam. Joi Ludwig MD Number of Addenda: 0 Note Initiated On: 07/24/2016 11:06 AM MRN: ?[id number] Procedure Date: ? 07/24/2016 11:06:10 AM Scope Withdrawal Time: 0 hours 12 minutes 14 seconds Total Procedure Duration: 0 hours 16 minutes 42 seconds Estimated Blood Loss: ? Scope In: 11:24:17 AM Scope Out: 11:40:59 AM RADIOLOGY RESULTS 07/24/2016 11:0 6 AM VP GENETIC Alfred Rios MD PROCEDURES RADIOLOGY RESULTS * US abdominal aorta limited (06/25/2016 10:30 AM VP GENETIC) Anatomical Region Laterality Modality Abdomen/Pelvis Ultrasound Impressions 06/25/2016 12:30 PM VP GENETIC IMPRESSION: No evidence of abdominal aortic aneurysm. JONES GIBSON MD Narrative 06/25/2016 12:30 PM VP [facility]ETIC ULTRASOUND ??ABDOMINAL AORTA LIMITED 06/25/2016 10:30 AM HISTORY: Personal history of nicotine dependence. FINDINGS: Examination of the abdominal aorta is performed. Proximal abdominal aorta: 2.0 x 2.1 cm. Mid abdominal aorta: 1.7 x 1.6 cm. Distal abdominal aorta: 1.8 x 1.7 cm. Small amount of distal plaque is noted. Proximal right common iliac artery is normal in caliber measuring 1.0 cm in maximal diameter. Proximal left common iliac artery is normal in caliber measuring 1.1 cm in maximal diameter. Procedure Note Jones Gibson MD - 06/25/2016 ULTRASOUND ABDOMINAL AORTA LIMITED 06/25/2016 10:30 AM HISTORY: Personal history of nicotine dependence. FINDINGS: Examination of the abdominal aorta is performed. Proximal abdominal aorta: 2.0 x 2.1 cm. Mid abdominal aorta: 1.7 x 1.6 cm. Distal abdominal aorta: 1.8 x 1.7 cm. Small amount of distal plaque is noted. Proximal right common iliac artery is normal in caliber measuring 1.0 cm in maximal diameter. Proximal left common iliac artery is normal in caliber measuring 1.1 cm in maximal diameter. IMPRESSION: No evidence of abdominal aortic aneurysm. JONES GIBSON MD Alfred Rios MD IMG US ORDERABLE S * Hepatitis C Screen Reflex to HCV RNA Quant and Genotype (06/17/2016 9:23 AM VP [facility]ETIC) Hepatitis C Antibody Nonreactive Assay performance characteristics have not been established for newborns, infants, and children NR [facility] Blood specimen (specimen) 06/17/2016 9:23 AM VP GENETIC 06/17/2016 9:24 AM VP GENETIC Alfred Rios MD LAB - BLOOD HESHAM BAUT[facility]A [facility] [address] [place] [address] * (ABNORMAL) UA reflex to Microscopic and Culture (05/06/2015 2:35 PM CDT) Pathologist [facility] Color Urine Light Yellow [facility] Appearance Urine Clear [facility] Glucose Urine Negative NEG mg/dL [facility] Bilirubin Urine Negative NEG [facility] Ketones Urine 5(A) NEG mg/dL [facility] Specific [place] Urine 1.039(H) 1.003 - 1.035 [facility] Blood Urine Negative NEG [facility] pH Urine 6.5 5.0 - 7.[address] [facility] Protein Albumin Urine Negative NEG mg/dL [facility] Urobilinogen mg/dL Normal 0.0 - 2.0 mg/dL [facility] Nitrite Urine Negative NEG [facility] Leukocyte Esterase Urine Negative NEG [facility] Source Midstream Urine [facility] Urine specimen (specimen) 05/06/2015 2:35 PM CDT 05/06/2015 2:49 PM CDT José Miguel Mcclelland PA-C LAB - URINE [facility] [facility] [facility] [address] [place], [place] [address] [phone] from Last 3 Months or Most Recently Relevant to Health Maintenance Advance Directives For more information, please contact: [phone] Documents on File Type Date Recorded Patient Plater Helper Expl anation Advance Directives and Living Will 05/28/2015 Health Care Directiv e 02/26/05 * Full Code (Latest Code Status on File) Date Activated Date Inactivated Comments 05/25/2015 9:49 AM 06/16/2023 8:33 AM * Full Code Date Activated Date Inactivated Comments 05/22/2015 12:15 PM 05/25/2015 9:49 AM Care Teams Java Security Architect Relationship Specialty Start Date End Date Alfred Rios MD PCP - General Family Practice 04/18/15 [place] [id number] [address] [id number] Assigned PCP 09/01/20 Dixie Bridges EP [facility] [address] [id number] Cardiac Rehabilitation Therapist 06/29/23 06/29/24 Anthony Ballesteros MD [address] [id number] Assigned Heart and Vascular Provider 10/02/23
--- OUTSIDE RECORDS SUMMARY | 2023-11-08 14:16 | XMS_ITS | Clinical Summary ---
Author Name Unknown Organization [facility] Address [place], [place] [address] Care Team Providers Care Cool Roofing Installer Name Role Phone Alfred Rios MD Primary Care Provider [phone] Allergies Active Allergy Reactions Criticality Noted Date Comments Nickel Rash 08/27/2019 Immunizations Name Administration Dates Next Due COVID-19 vaccine (Pfizer-Bio NTech 30mcg/0.3mL) 12YO+ ANTONETTE-SUCROSE PF, MDV 02/04/2022 COVID-19 vaccine (Pfizer-BioNTech 30mcg/0.3mL) P F, MDV 05/16/2021 Social History Tobacco Use Types Packs/Day Years Used Date Smoking Tobacco: Never Assessed Sex and Gender Information Value Date Recorded Sex Assigned at Not on file Gender Identity Not on file Sexual Orientation Not on file Last Filed Vital Signs Vital Sign Reading Time Taken Comments Blood Pressure 142/71 08/27/2019 6:21 PM SPECIAL DELIVERY CARRIER Pulse 73 08/27/2019 6:21 PM SPECIAL DELIVERY CARRIER Temperature 36.7 ??C (98.1 ??F) 08/27/2019 6:21 PM CS T Respiratory Rate 18 08/27/2019 6:21 PM SPECIAL DELIVERY CARRIER Oxygen Saturation 98% 08/27/2019 6:21 PM SPECIAL DELIVERY CARRIER Inhaled Oxygen Concentration - - Weight 72.6 kg (160 lb) 08/27/2019 6:21 PM SPECIAL DELIVERY CARRIER Height 167.6 cm (5' 6) 08/27/2019 6:21 PM SPECIAL DELIVERY CARRIER Body Mass Index 25.82 08/27/2019 6:21 PM SPECIAL DELIVERY CARRIER Plan of Treatment Health Maintenance Due Date Last Done Comments Tdap 1961 Depression screening for age 12+ 1962 BMI (ht and wt on same day) for age 18+ 02/08/1968 Hepatitis C screening for ag e 18-79 02/08/1968 Tetanus booster 1970 Colonoscopy through age 75 1995 Lipids for age 45-75 1995 Zoster (shingles) series for age 50+ (1 of 2) 02/08/2000 Medicare Wellness for age 65+ 2015 Pneumococcal series for age 65+ (1 of 1 - PCV) 2015 COVID-19 vaccine series ( - 2022-24 season) 2023 02/04/2022, 05/16/2021, 10/01/2020, Additional history exists Influenza for age 65+ 03/12/2024 Care Teams Cool Roofing Installer Relationship Specialty [place] [id number] [address] [id number] PCP - General 02/04/22
--- OUTSIDE RECORDS SUMMARY | 2023-11-08 14:17 | XMS_ITS | Encounter Summary ---
Author Name Unknown Organization [place] Address [address] [place] [address]. [place] [address] Care Team Providers Care Aircraft Maintenance Supervisor Name Role Phone Alfred Rios MD Primary Care Provider + Alfred Rios MD Unavailable [phone] Dixie Bridges Unavailable [phone] Natalia Forman APRN OFFAL TRIMMER Unavailable Unavaila ble Reason for Visit * Rehab Therapy Cardiac Therapy (Routine: Next available opening) - Authorized Specialty Diagnoses / Procedures Referred By Ghazala shah Referred To Contact CARDIAC REHAB Diagnoses CAD (coronary artery disease) [address] [address] Referral ID Status Reason Start Date Expiration Date V isits Requested Visits Authorized [id number] Authorized 06/24/2023 07/11/2024 365 365 Encounter Details Date Type Department Care Team (Latest Contact Info) Description 08/16/2023 1:57 PM BUSINESS ECONOMIST - 08/16/2023 11:59 PM BUSINESS ECONOMIST Hospital Encounter [facility] Cardiac and Pulmonary Rehabilitation [address] [place] [address] Anthony Ballesteros MD [address] [id number] 2, Rh Cardiac Rehab Discharge Disposition: Home or Self Care Social History Tobacco Use Types Packs/Day Years [...] CDT Gender Identity Male 08/26/2020 6:37 PM BUSINESS ECONOMIST Sexual Orientation Straight 08/26/2020 6: 37 PM BUSINESS ECONOMIST documented as of this encounter Medications at Time of Discharge Medication Sig Dispensed Refills Start Date End Date albuterol (PROAIR HFA/PROVENTIL HFA/VENTOLIN HFA) 108 (90 Base) MCG/ACT inhalerIndications:Mild intermittent asthma without complication INHALE 2 PUFFS INTO THE LUNGS EVERY 6 HOURS 8.5 g 1 02/03/2022 aspirin 81 MG chewable tabletIndications:Chron ic ischemic heart disease Take 1 tablet (81 mg) by mouth daily 30 tablet 12 07/31/2015 atorvastatin (LIPITOR) 80 MG tabletIndications:Hyper lipidemia with target LDL less than 100 Take 1 tablet (80 mg) by mouth daily 90 tablet 3 07/30/2023 clopidogrel (PLAVIX) 75 MG tabletIndications:Coron stacy artery disease involving [place] coronary artery of [place] heart, unspecified whether angina present Take 300 mg (4 tablets) once on the day you discontinue Brilinta, then continue at 75 mg daily. 94 tablet 3 07/13/2023 gabapentin (NEURONTIN) 300 MG capsule Take 300 mg by mouth 2 times daily 03/16/2023 metoprolol tartrate (LOPRESSOR) 50 MG tabletIndications:Coron stacy artery disease involving [place] coronary artery of [place] heart, unspecified whether angina present Take 1 tablet (50 mg) by mouth 2 times daily 90 tablet 11 06/09/2023 naproxen (NAPROSYN) 500 MG tabletIndications:Bilat eral hip pain TAKE 1 TABLET (500 MG) BY MOUTH 2 TIMES DAILY NEEDED FOR MODERATE PAIN 60 tablet 1 12/04/2022 nitroGLYcerin (NITROSTAT) 0.4 MG sublingual tabletIndications:Coron stacy artery disease involving [place] coronary artery of [place] heart, unspecified whether angina present For chest pain place 1 tablet under the tongue every 5 minutes for 3 doses. If symptoms persist 5 minutes after 1st dose call 911. 90 tablet 11 06/09/2023 documented as of this encounter Plan of Treatment Upcoming Encounters Date Type Department Care Team (Late st Contact Info) Description 01/27/2024 8:30 AM CDT Lab [facility] [address] [place] [address] 01/28/2024 9:00 AM CDT Office Visit [facility] [address] [place] [phone] Natalia Forman APRN CNP Manoles, Michael Jon, MD [address] [place] [id number] documented as of this encounter Visit Diagnoses Not on filedocumented in this encounter Additional Health Concerns Assessment Noted Time PHQ-9 Depression Total Score: 3 05/25/20 20 7:02 AM BUSINESS ECONOMIST documented as of this encounter Care Teams Aircraft Maintenance Supervisor Relationship Specialty Start Date End Date Alfred Rios MD PCP - General Family Practice 04/18/15 [place] [address] [address] [address] Assigned PCP 09/01/20 Dixie Bridges EP [facility] [address] [id number] Cardiac Rehabilitation Therapist 06/29/23 06/29/24 Natalia Forman APRN OFFAL TRIMMER Assigned Heart and Vascular Provider 08/05/23 10/01/23 documented as of this encounter
--- OUTSIDE RECORDS SUMMARY | 2023-11-08 14:17 | XMS_ITS | Encounter Summary ---
Author Name Unknown Organization [place] Address [address] [place] [address]. [place] [address] Care Team Providers Care Trimming Caser Name Role Phone Alfred Rios MD Primary Care Provider + Alfred Rios MD Unavailable [phone] Dixie Bridges Unavailable [phone] Natalia Forman APRN GREY STOCK RECORDER Unavailable Unavaila ble Reason for Visit * Rehab Therapy Cardiac Therapy (Routine: Next available opening) - Authorized Specialty Diagnoses / Procedures Referred By Ghazala shah Referred To Contact CARDIAC REHAB Diagnoses CAD (coronary artery disease) [address] [address] Referral ID Status Reason Start Date Expiration Date V isits Requested Visits Authorized [id number] Authorized 06/24/2023 07/11/2024 365 365 Encounter Details Date Type Department Care Team (Latest Contact Info) Description 08/09/2023 1:53 PM MEDICAL LABORATORY ASSISTANT - 08/09/2023 11:59 PM MEDICAL LABORATORY ASSISTANT Hospital Encounter [facility] Cardiac and Pulmonary Rehabilitation [address] [place] [address] Anthony Ballesteros MD [address] [id number] 2, Rh Cardiac Rehab Discharge Disposition: Home [...] CDT Gender Identity Male 08/26/2020 6:37 PM MEDICAL LABORATORY ASSISTANT Sexual Orientation Straight 08/26/2020 6: 37 PM MEDICAL LABORATORY ASSISTANT documented as of this encounter Medications at [...] 75 MG tabletIndications:Coron stacy artery disease involving [place] coronary artery of [place] heart, unspecified whether angina present Take 300 mg (4 tablets) once on the day you discontinue Brilinta, then continue at 75 mg daily. 94 tablet 3 07/13/2023 gabapentin (NEURONTIN) 300 MG capsule Take 300 mg by mouth 2 times daily 03/16/2023 metoprolol tartrate (LOPRESSOR) 50 MG tabletIndications:Coron stacy artery disease involving [place] coronary artery of [place] heart, unspecified whether angina present Take 1 tablet (50 mg) by mouth 2 times daily 90 tablet 11 06/09/2023 naproxen (NAPROSYN) 500 MG tabletIndications:Bilat eral hip pain TAKE 1 TABLET (500 MG) BY MOUTH 2 TIMES DAILY NEEDED FOR MODERATE PAIN 60 tablet 1 12/04/2022 nitroGLYcerin (NITROSTAT) 0.4 MG sublingual tabletIndications:Coron tsacy artery disease involving [place] coronary artery of [place] heart, unspecified whether angina present For chest pain place 1 tablet under the tongue every 5 minutes for 3 doses. If symptoms persist 5 minutes after 1st dose call 911. 90 tablet 11 06/09/2023 documented as of this encounter Plan of Treatment Upcoming Encounters Date Type Department Care Team (Late st Contact Info) Description 01/27/2024 8:30 AM CDT Lab [facility] Laboratory [address] [place] [address] 01/28/2024 9:00 AM CDT Office Visit [facility] [address] [place] [phone] Natalia Forman APRN CNP Manoles, Michael Jon, MD [address] [place] [id number] documented as of this encounter Visit Diagnoses Not on filedocumented in this encounter Additional Health Concerns Assessment Noted Time PHQ-9 Depression Total Score: 3 05/25/20 20 7:02 AM MEDICAL LABORATORY ASSISTANT documented as of this encounter Care Teams Trimming Caser Relationship Specialty Start Date End Date Alfred Rios MD PCP - General Family Practice 04/18/15 [place] [address] [address] [address] Assigned PCP 09/01/20 Dixie Bridges EP [facility] [address] [address] Cardiac Rehabilitation Therapist 06/29/23 06/29/24 Natalia Forman APRN GREY STOCK RECORDER Assigned Heart and Vascular Provider 08/05/23 10/01/23 documented as of this encounter
--- OUTSIDE RECORDS SUMMARY | 2023-11-08 14:17 | XMS_ITS | Encounter Summary ---
Author Name Unknown Organization [place] Address [address] [place] [address]. [place] [address] Care Team Providers Care Payroll Manager Name Role Phone Alfred Rios MD Primary Care Provider + Alfred Rios MD Unavailable [phone] Dixie Bridges Unavailable [phone] Natalia Forman APRN TERRITORY MANAGER Unavailable Unavaila ble Reason for Visit * Rehab Therapy Cardiac Therapy (Routine: Next available opening) - Authorized Specialty Diagnoses / Procedures Referred By Ghazala shah Referred To Contact CARDIAC REHAB Diagnoses CAD (coronary artery disease) [address] [address] Referral ID Status Reason Start Date Expiration Date V isits Requested Visits Authorized [id number] Authorized 06/24/2023 07/11/2024 365 365 Encounter Details Date Type Department Care Team (Latest Contact Info) Description 08/23/2023 1:55 PM SALES REPRESENTATIVE ADDING MACHINES - 08/23/2023 11:59 PM SALES REPRESENTATIVE ADDING MACHINES Hospital Encounter [facility] Cardiac and Pulmonary Rehabilitation [address] [place] [address] Anthony Ballesteros MD [address] [id number] 2, Rh Cardiac Rehab Discharge Disposition: Home [...] CDT Gender Identity Male 08/26/2020 6:37 PM SALES REPRESENTATIVE ADDING MACHINES Sexual Orientation Straight 08/26/2020 6: 37 PM SALES REPRESENTATIVE ADDING MACHINES documented as of this encounter Medications at [...] 75 MG tabletIndications:Coron stacy artery disease involving [place] coronary artery of [place] heart, unspecified whether angina present Take 300 mg (4 tablets) once on the day you discontinue Brilinta, then continue at 75 mg daily. 94 tablet 3 07/13/2023 gabapentin (NEURONTIN) 300 MG capsule Take 300 mg by mouth 2 times daily 03/16/2023 metoprolol tartrate (LOPRESSOR) 50 MG tabletIndications:Coron stacy artery disease involving [place] coronary artery of [place] heart, unspecified whether angina present Take 1 tablet (50 mg) by mouth 2 times daily 90 tablet 11 06/09/2023 naproxen (NAPROSYN) 500 MG tabletIndications:Bilat eral hip pain TAKE 1 TABLET (500 MG) BY MOUTH 2 TIMES DAILY NEEDED FOR MODERATE PAIN 60 tablet 1 12/04/2022 nitroGLYcerin (NITROSTAT) 0.4 MG sublingual tabletIndications:Coron stacy artery disease involving [place] coronary artery of [place] heart, unspecified whether angina present For chest pain place 1 tablet under the tongue every 5 minutes for 3 doses. If symptoms persist 5 minutes after 1st dose call 911. 90 tablet 11 06/09/2023 documented as of this encounter Plan of Treatment Upcoming Encounters Date Type Department Care Team (Late st Contact Info) Description 01/27/2024 8:30 AM CDT Lab [facility] [address] [place] [address] 01/28/2024 9:00 AM CDT Office Visit [facility] [address] [place] [phone] Natalia Forman APRN CNP Manoles, Michael Jon, MD [address] [place] [id number] documented as of this encounter Visit Diagnoses Not on filedocumented in this encounter Additional Health Concerns Assessment Noted Time PHQ-9 Depression Total Score: 3 05/25/20 20 7:02 AM SALES REPRESENTATIVE ADDING MACHINES documented as of this encounter Care Teams Payroll Manager Relationship Specialty Start Date End Date Alfred Rios MD PCP - General Family Practice 04/18/15 [place] [address] [address] [address] Assigned PCP 09/01/20 Dixie Bridges EP [facility] [address] [id number] Cardiac Rehabilitation Therapist 06/29/23 06/29/24 Natalia Forman APRN TERRITORY MANAGER Assigned Heart and Vascular Provider 08/05/23 10/01/23 documented as of this encounter
--- OUTSIDE RECORDS SUMMARY | 2023-11-08 14:17 | XMS_ITS | Encounter Summary ---
Author Name Unknown Organization [facility] Address [address] [place] [address]. [place] [address] Care Team Providers Care Cloth Reeler Name Role Phone Alfred Rios MD Primary Care Provider + Alfred Rios MD Unavailable [phone] Dixie Bridges EP Unavailable [phone] Natalia Forman APRN HAZARDOUS WASTE REMOVER Unavailable Unavaila ble Encounter Details Date Type Department Care Team (Latest Contact Info) Description 08/09/2023 Travel Social History Tobacco Use Types Packs/Day [...] CDT Gender Identity Male 08/26/2020 6:37 PM CASING PULLER Sexual Orientation Straight 08/26/2020 6: 37 PM CASING PULLER documented as of this encounter Plan of Treatment Upcoming Encounters Date Type Department Care Team (Late st Contact Info) Description 01/27/2024 8:30 AM CDT [facility] [address] [place] [address] 01/28/2024 9:00 AM CDT Office Visit [facility] Heart [facility] [address] [facility] [address] [place] [phone] Natalia Forman APRN CNP Manoles, Michael Jon, MD [address] [place] [id number] documented as of this encounter Visit Diagnoses Not on filedocumented in this encounter Additional Health Concerns Assessment Noted Time PHQ-9 Depression Total Score: 3 05/25/20 20 7:02 AM CASING PULLER documented as of this encounter Care Teams Cloth Reeler Relationship Specialty Start Date End Date Alfred Rios MD PCP - General Family Practice 04/18/15 [place] [address] [place] [address] Assigned PCP 09/01/20 Dixie Bridges EP [facility] [address] [address] Cardiac Rehabilitation Therapist 06/29/23 06/29/24 Natalia Forman APRN HAZARDOUS WASTE REMOVER Assigned Heart and Vascular Provider 08/05/23 10/01/23 documented as of this encounter
--- OUTSIDE RECORDS SUMMARY | 2023-11-08 14:17 | XMS_ITS | Encounter Summary ---
Author Name Unknown Organization [facility] Address [address] [place] [address]. [place] [address] Care Team Providers Care Lens Inserter Name Role Phone Alfred Rios MD Primary Care Provider + Alfred Rios MD Unavailable [phone] Dixie Bridges Unavailable [phone] Anthony Ballesteros MD Unavailable [phone] Encounter Details Date Type Department Care Team (Latest Contact Info) Description 08/04/2023 Travel Social History Tobacco Use Types Packs/Day [...] Gender Identity Male 08/26/2020 6:37 PM SALES AND CATERING COORDINATOR Sexual Orientation Straight 08/26/2020 6: 37 PM SALES AND CATERING COORDINATOR documented as of this encounter Plan of Treatment Upcoming Encounters Date Type Department Care Team (Late st Contact Info) Description 01/27/2024 8:30 AM CDT [facility] Laboratory [address] [place] [phone] 01/28/2024 9:00 AM CDT Office Visit [facility] Heart [facility] [address] [facility] [address] [place] [phone] Natalia Forman APRN CNP Manoles, Michael Jon, MD [address] [place] [id number] documented as of this encounter Visit Diagnoses Not on filedocumented in this encounter Additional Health Concerns Assessment Noted Time PHQ-9 Depression Total Score: 3 05/25/20 20 7:02 AM SALES AND CATERING COORDINATOR documented as of this encounter Care Teams Lens Inserter Relationship Specialty Start Date End Date Alfred Rios MD PCP - General Family Practice 04/18/15 [place] [address] [facility] [address] Assigned PCP 09/01/20 Dixie Bridges EP [facility] [address] [address] Cardiac Rehabilitation Therapist 06/29/23 06/29/24 Anthony Ballesteros MD [address] [place] [address] Assigned Heart and Vascular Provider 06/12/23 08/04/23 documented as of this encounter
--- OUTSIDE RECORDS SUMMARY | 2023-11-08 14:17 | XMS_ITS | Encounter Summary ---
Author Name Unknown Organization [place] Address [address] [place] [address]. [place] [address] Care Team Providers Care Patient Safety Attendant Name Role Phone Alfred Rios MD Primary Care Provider + Alfred Rios MD Unavailable [phone] Dixie Bridges Unavailable [phone] Natalia Forman APRN CERTIFIED NURSE AIDE Unavailable Unavaila ble Reason for Visit * Rehab Therapy Cardiac Therapy (Routine: Next available opening) - Authorized Specialty Diagnoses / Procedures Referred By Ghazala shah Referred To Contact CARDIAC REHAB Diagnoses CAD (coronary artery disease) [address] [address] Referral ID Status Reason Start Date Expiration Date V isits Requested Visits Authorized [id number] Authorized 06/24/2023 07/11/2024 365 365 Encounter Details Date Type Department Care Team (Latest Contact Info) Description 08/26/2023 2:57 PM DISTILLER - 08/26/2023 11:59 PM DISTILLER Hospital Encounter [facility] Cardiac and Pulmonary Rehabilitation [address] [place] [address] Anthony Ballesteros MD [address] [id number] 3, Rh Cardiac Rehab Discharge Disposition: Home [...] CDT Gender Identity Male 08/26/2020 6:37 PM DISTILLER Sexual Orientation Straight 08/26/2020 6: 37 PM DISTILLER documented as of this encounter Medications at [...] 75 MG tabletIndications:Coron stacy artery disease involving [place] coronary artery of [place] heart, unspecified whether angina present Take 300 mg (4 tablets) once on the day you discontinue Brilinta, then continue at 75 mg daily. 94 tablet 3 07/13/2023 gabapentin (NEURONTIN) 300 MG capsule Take 300 mg by mouth 2 times daily 03/16/2023 metoprolol tartrate (LOPRESSOR) 50 MG tabletIndications:Coron stacy artery disease involving [place] coronary artery of [place] heart, unspecified whether angina present Take 1 tablet (50 mg) by mouth 2 times daily 90 tablet 11 06/09/2023 naproxen (NAPROSYN) 500 MG tabletIndications:Bilat eral hip pain TAKE 1 TABLET (500 MG) BY MOUTH 2 TIMES DAILY NEEDED FOR MODERATE PAIN 60 tablet 1 12/04/2022 nitroGLYcerin (NITROSTAT) 0.4 MG sublingual tabletIndications:Coron stacy artery disease involving [place] coronary artery of [place] heart, unspecified whether angina present For chest pain place 1 tablet under the tongue every 5 minutes for 3 doses. If symptoms persist 5 minutes after 1st dose call 911. 90 tablet 11 06/09/2023 documented as of this encounter Plan of Treatment Upcoming Encounters Date Type Department Care Team (Late st Contact Info) Description 01/27/2024 8:30 AM CDT Lab [facility] Laboratory [address] [place] [address] 01/28/2024 9:00 AM CDT Office Visit [facility] [address] [place] [phone] Natalia Forman APRN CNP Manoles, Michael Jon, MD [address] [id number] documented as of this encounter Visit Diagnoses Not on filedocumented in this encounter Additional Health Concerns Assessment Noted Time PHQ-9 Depression Total Score: 3 05/25/20 20 7:02 AM DISTILLER documented as of this encounter Care Teams Patient Safety Attendant Relationship Specialty Start Date End Date Alfred Rios MD PCP - General Family Practice 04/18/15 [place] [address] [address] [address] Assigned PCP 09/01/20 Dixie Bridges EP [facility] [address] [address] Cardiac Rehabilitation Therapist 06/29/23 06/29/24 Natalia Forman APRN CERTIFIED NURSE AIDE Assigned Heart and Vascular Provider 08/05/23 10/01/23 documented as of this encounter
--- OUTSIDE RECORDS SUMMARY | 2023-11-08 14:17 | XMS_ITS | Encounter Summary ---
Author Name Unknown Organization [place] Address [address] [place] [address]. [place] [address] Care Team Providers Care Motor And Generator Brush Cutter Name Role Phone Alfred Rios MD Primary Care Provider + Alfred Rios MD Unavailable [phone] Dixie Bridges EP Unavailable [phone] Natalia Forman APRN PHOTOCOMPOSING KEYBOARD OPERATOR Unavailable Unavaila ble Encounter Details Date Type Department Care Team (Latest Contact Info) Description 08/18/2023 Travel Social History Tobacco Use Types Packs/Day [...] CDT Gender Identity Male 08/26/2020 6:37 PM DIELECTRIC TESTER Sexual Orientation Straight 08/26/2020 6: 37 PM DIELECTRIC TESTER documented as of this encounter Plan of Treatment Upcoming Encounters Date Type Department Care Team (Late st Contact Info) Description 01/27/2024 8:[address] [facility] [address] [place] [address] 01/28/2024 9:00 AM CDT Office Visit [facility] Heart [facility] [address] [facility] [address] [place] [phone] Natalia Forman APRN CNP Manoles, Michael Jon, MD [address] [place] [id number] documented as of this encounter Visit Diagnoses Not on filedocumented in this encounter Additional Health Concerns Assessment Noted Time PHQ-9 Depression Total Score: 3 05/25/20 20 7:02 AM DIELECTRIC TESTER documented as of this encounter Care Teams Motor And Generator Brush Cutter Relationship Specialty Start Date End Date Alfred Rios MD PCP - General Family Practice 04/18/15 [place] [address] [place] [address] Assigned PCP 09/01/20 Dixie Bridges EP [facility] [address] [address] Cardiac Rehabilitation Therapist 06/29/23 06/29/24 Natalia Forman APRN PHOTOCOMPOSING KEYBOARD OPERATOR Assigned Heart and Vascular Provider 08/05/23 10/01/23 documented as of this encounter
--- OUTSIDE RECORDS SUMMARY | 2023-11-08 14:17 | XMS_ITS | Referral Summary ---
Author Name Unknown Organization [place] Address [address] [place] [id number] Care Team Providers Care Writer Producer Name Role Phone Alfred Rios MD Primary Care Provider + Alfred Rios MD Unavailable [phone] Dixie Bridges Unavailable [phone] Anthony Ballesteros MD Unavailable [phone] Encounters Date Type Department Care Team Description 10/07/2023 MyC Medical Advice [facility] Heart [facility] [id number] [place] [address] [address] [place] [phone] Ryland Moseley 09/30/2023 MyC Medical Advice [facility] [address] [place] [address] Savage Hayes MA 09/30/2023 Telephone [facility] [address] [place] [address] Alfred Rios MD 09/07/2023 MyC Medical Advice [facility] Heart [facility] [id number] [place] [address] [address] [place] [phone] Anthony Ballesteros MD 08/26/2023 2:57 PM APPLICATION ARCHITECT MANAGER - 08/26/2023 11:59 PM APPLICATION ARCHITECT MANAGER Hospital Encounter [facility] Cardiac and Pulmonary Rehabilitation [address] [place] [phone] Anthony Ballesteros MD 3, Rh Cardiac Rehab Discharge Disposition: Home or Self Care 08/25/2023 Travel 08/25/2023 1:57 PM APPLICATION ARCHITECT MANAGER - 08/25/2023 11:59 PM APPLICATION ARCHITECT MANAGER Hospital Encounter [facility] Cardiac and Pulmonary Rehabilitation [address] [place] [phone] Anthony Ballesteros MD 2, Rh Cardiac Rehab Discharge Disposition: Home or Self Care 08/23/2023 Travel 08/23/2023 1:55 PM APPLICATION ARCHITECT MANAGER - 08/23/2023 11:59 PM APPLICATION ARCHITECT MANAGER Hospital Encounter [facility] Cardiac [facility] Pulmonary Rehabilitation [address] [address] Anthony Ballesteros MD 2, Rh Cardiac Rehab Discharge Disposition: Home or Self Care 08/18/2023 Travel 08/18/2023 1:55 PM APPLICATION ARCHITECT MANAGER - 08/18/2023 11:59 PM APPLICATION ARCHITECT MANAGER Hospital Encounter [facility] Cardiac and Pulmonary Rehabilitation [address] [place] [phone] Anthony Ballesteros MD 2, Rh Cardiac Rehab Discharge Disposition: Home or Self Care 08/16/2023 Travel 08/16/2023 1:57 PM APPLICATION ARCHITECT MANAGER - 08/16/2023 11:59 PM APPLICATION ARCHITECT MANAGER Hospital Encounter [facility] Cardiac and Pulmonary Rehabilitation [address] [place] [phone] Anthony Ballesteros MD 2, Rh Cardiac Rehab Discharge Disposition: Home or Self Care 08/11/2023 Travel 08/11/2023 1:55 PM APPLICATION ARCHITECT MANAGER - 08/11/2023 11:59 PM APPLICATION ARCHITECT MANAGER Hospital Encounter [facility] Cardiac and Pulmonary Rehabilitation [address] [place] [phone] Anthony Ballesteros MD 2, Rh Cardiac Rehab Discharge Disposition: Home or Self Care 08/09/2023 Travel 08/09/2023 1:53 PM APPLICATION ARCHITECT MANAGER - 08/09/2023 11:59 PM APPLICATION ARCHITECT MANAGER Hospital Encounter [facility] Cardiac and Pulmonary Rehabilitation [address] [address] Anthony Ballesteros MD 2, Rh Cardiac Rehab Discharge Disposition: Home or Self Care from Last 3 Months Allergies Active Allergy Reactions Criticality Noted Date [...] 50 MG tabletIndications:C oronary artery disease involving [place] coronary artery of [place] heart, unspecified whether angina present Take 1 tablet (50 mg) by mouth 2 times daily 90 tablet 11 06/09/2023 Active nitroGLYcerin (NITROSTAT) 0.4 MG sublingual tabletIndications:C oronary artery disease involving [place] coronary artery of [place] heart, unspecified whether angina present For chest pain place 1 tablet under the tongue every 5 minutes for 3 doses. If symptoms persist 5 minutes after 1st dose call 911. 90 tablet 11 06/09/2023 Active clopidogrel (PLAVIX) 75 MG tabletIndications:C oronary artery disease involving [place] coronary artery of [place] heart, unspecified whether angina present Take 300 [...] angiogram 06/16/2023 Coronary artery disease invo lving [place] coronary artery of [place] heart, unspecified whether angina present 06/16/2023 Peripheral vascular disease (H24) 04/14/2019 Post-traumatic osteoarthritis of left knee 09/12 Mild intermittent asthma without complication Anemia due to blood loss, acute 05/30/2015 Fluid overload 05/30/2015 S/P CABG (coronary artery bypass graft) 05/25/20 Coronary artery disease 05/22/2015 Coronary artery disease without angina pectoris 05/08/2015 Hyperlipidemia with target LDL less than 100 Essential hypertension, benign 05/08/2015 Lumbar radiculopathy 05/08/2015 Facet arthritis of lumbar region 05/08/2015 Cardiac ischemia 04/24/2015 Overview: Positive stress test 04/18/15 Alfred Rios MD CRF (chronic renal failure), stage 2 (mild) 01/2015 Family history of PA (myocardial infarction) 12/2014 Resolved Problems Problem Noted Date Diagnosed Date Resolved Date Bilateral low back pain without sciatica 09/04/2020 10/02/2020 Left knee pain 09/21/2018 01/25/2019 Hip pain, left 09/21/2018 01/25/2019 Hyperlipidemia with target LDL less than 130 5 05/08/2015 Overview: Diagnosis updated by automated process. Provider to review and confirm. HTN, goal below 140/90 04/16/201505/08 Immunizations Name Administration Dates Next Due COVID-19 MONOVALENT 12+ (Pfizer) 10/01/2020,08/2020 Influenza (High Dose) 3 valent vaccine Influenza Vaccine 65+ (Fluzone HD) 04/26/2021 Pneumo Conj 13-V (2010&after) 04/16/2015 Pneumococcal 23 valent 07/03/2021,06/17/2016 Tdap (Adult) Unspecified Formulation 07/12/2011 Varicella 03/27/2014 Social History Tobacco Use Types Packs/Day Years [...] CDT Gender Identity Male 08/26/2020 6:37 PM APPLICATION ARCHITECT MANAGER Sexual Orientation Straight 08/26/2020 6: 37 PM APPLICATION ARCHITECT MANAGER Last Filed Vital Signs Vital Sign Reading Time Taken Comments Blood Pressure 146/82 07/30/2023 8:10 AM APPLICATION ARCHITECT MANAGER Med s @7AM Pulse 64 07/30/2023 8:10 AM APPLICATION ARCHITECT MANAGER Temperature 36.3 ??C (97.4 ??F) 06/16/2023 8:46 AM CS T Respiratory Rate 16 06/16/2023 4:30 PM APPLICATION ARCHITECT MANAGER Oxygen Saturation 97% 07/30/2023 8:10 AM APPLICATION ARCHITECT MANAGER Inhaled Oxygen Concentration - - Weight 73.2 kg (161 lb 6.4 oz) 07/30/2023 8:10 A M APPLICATION ARCHITECT MANAGER Height 167.6 cm (5' 6) 07/30/2023 8:10 AM APPLICATION ARCHITECT MANAGER Body Mass Index 26.05 07/30/2023 8:10 AM APPLICATION ARCHITECT MANAGER Plan of Treatment Upcoming Encounters Date Type Department Care Team (Late st Contact Info) Description 01/27/2024 8:30 AM CDT Lab [facility] [address] [place] [address] 01/28/2024 9:00 AM CDT Office Visit [facility] Heart [facility] [id number] [place] [address] [address] [place] [address] Natalia Forman APRN CNP Manoles, Michael Jon, MD [address] [place] [id number] Medical Devices Implanted Type Area Urology Physician Device Identifier Shelf Expiration Date Model / Serial / Lot Stent Coronary Brendan Litzy Xd Mr Us [id number] - [id number] Implanted:Qty: 1 on 06/16/2023 at [facility] Stent Drug Eluting (BRENDAN) [employer] 09/28/2024 [id number] / / [id number] Procedures Procedure Name Priority Date/Time Associated Diagnosis Comments LIPID PROFILE STAT 06/16/2023 9:09 AM APPLICATION ARCHITECT MANAGER BASIC METABOLIC PANEL STAT 06/16/2023 9:09 AM APPLICATION ARCHITECT MANAGER COLONOSCOPY Routine 07/24/2016 11:06 AM APPLICATION ARCHITECT MANAGER US ABDOMINAL AORTA Routine 06/25/2016 10 :30 AM APPLICATION ARCHITECT MANAGER Personal history of tobacco use, presenting hazards to health HEPATITIS C SCREEN REFLEX TO HCV RNA QUANT AND GENOTYPE Routine 06/17/2016 9:23 AM APPLICATION ARCHITECT MANAGER Need for hepatitis C screening test UA MACROSCOPIC WITH REFLEX TO MICRO AND CULTURE Routine 05/06/2015 2:35 PM CDT Status post coronary angiogram from Last 3 Months or Most Recently Relevant to Health Maintenance Results * Lipid Profile (06/16/2023 9:09 AM APPLICATION ARCHITECT MANAGER) Cholesterol 151 <200 mg/dL 06/17/2023 1:57 AM APPLICATION ARCHITECT MANAGER [facility] Triglycerides 65 <150 mg/dL 06/17/2023 1:57 AM APPLICATION ARCHITECT MANAGER [facility] Direct Measure HDL 60 >=40 mg/dL 2022 1:57 AM APPLICATION ARCHITECT MANAGER [facility] LDL Cholesterol Calculated 78 <=100 mg/dL 06/17/2023 1:57 AM APPLICATION ARCHITECT MANAGER [facility] Non HDL Cholesterol 91 <130 mg/dL 06/17/2023 1:57 AM APPLICATION ARCHITECT MANAGER [facility] Blood STRUCTURE OF LEFT UPPER LIMB / Unknown Venipuncture / Unknown 06/16/2023 9:09 AM APPLICATION ARCHITECT MANAGER 06/16/2023 9:14 AM APPLICATION ARCHITECT MANAGER Narrative [facility] - 06/17/2023 1:57 AM APPLICATION ARCHITECT MANAGER Cholesterol Desirable: ??<200 mg/dL Triglycerides Normal: ??Less [...] ??Greater than or equal to 220 mg/dL Anthony Ballesteros MD LAB - BLOOD ORDER NIRU [facility] [address] [facility], [address] [place] [phone], [facility] [phone] * (ABNORMAL) Basic metabolic panel (06/16/2023 9:09 AM [facility]) [facility] Sodium 142 135 - 145 mmol/L 06/16/2023 9:35 AM [facility] Comment:Reference intervals for this test were updated on 04/06/2023 to more accurately reflect our healthy population. There may be differences in the flagging of prior results with similar values performed with this method. Interpretation of those prior results can be made in the context of the updated reference intervals. Potassium 4.3 3.4 - 5.3 mmol/L 06/16/2023 9:35 AM [facility] Chloride 107 98 - 107 mmol/L 06/16/2023 9:35 AM [facility] Carbon Dioxide (CO2) 24 22 - 29 mmol/L 06/16/2023 9:35 AM [facility] Anion Gap 11 7 - 15 mmol/L 06/16/2023 9:35 AM [facility] Urea Nitrogen 20.3 8.0 - 23.0 mg/dL 06/16/2023 9:35 AM [facility] Creatinine 1.09 0.67 - 1.17 mg/dL 06/16/2023 9:35 AM [facility] GFR Estimate 72 >60 mL/min/1. 73m2 06/16/2023 9:35 AM [facility] Calcium 9.2 8.8 - 10.2 mg/dL 06/16/2023 9:35 AM [facility] Glucose 113(H) 70 - 99 mg/dL 06/16/2023 9:35 AM [facility] Blood STRUCTURE OF LEFT UPPER LIMB / Unknown Venipuncture / Unknown 06/16/2023 9:09 AM APPLICATION ARCHITECT MANAGER 06/16/2023 9:14 AM [facility] Anthony Ballesteros MD LAB - BLOOD ORDER [facility] Acute Care Lab [address], [address] [place] [address] [phone] * COLONOSCOPY (07/24/2016 11:06 AM APPLICATION ARCHITECT MANAGER) [facility] COLONOSCOPY [facility] Patient Name: Anthony Chun ? Procedure Date: [...] monitored continuously. The ?Olympus Adult Colonoscope Model #CF-XZ806D, ?[place]#124, SN#[id number] was introduced through the ?anus and advanced [...] Note Initiated On: 07/24/2016 11:06 AM MRN: ?[id number] Procedure Date: ? 07/24/2016 11:06:10 AM Scope Withdrawal Time: 0 hours 12 minutes 14 seconds Total Procedure Duration: 0 hours 16 minutes 42 seconds Estimated Blood Loss: ? Scope In: 11:24:17 AM Scope Out: 11:40:59 AM RADIOLOGY RESULTS 07/24/2016 11:0 6 AM APPLICATION ARCHITECT MANAGER Alfred Rios MD PROCEDURES RADIOLOGY RESULTS * US abdominal aorta limited (06/25/2016 10:30 AM APPLICATION ARCHITECT MANAGER) Anatomical Region Laterality Modality Abdomen/Pelvis Ultrasound Impressions 06/25/2016 12:30 PM APPLICATION ARCHITECT MANAGER IMPRESSION: No evidence of abdominal aortic aneurysm. JONES GIBSON MD Narrative 06/25/2016 12:30 PM APPLICATION ARCHITECT MANAGER ULTRASOUND ??ABDOMINAL AORTA LIMITED 06/25/2016 10:30 AM [...] aneurysm. JONES GIBSON MD Alfred Rios MD [facility] US ORDERABLE S * Hepatitis C Screen Reflex to HCV RNA Quant and Genotype (06/17/2016 9:23 AM APPLICATION ARCHITECT MANAGER) [facility] Hepatitis C Antibody Nonreactive Assay performance characteristics have not been established for newborns, infants, and children NR [facility] Blood specimen (specimen) 06/17/2016 9:23 AM APPLICATION ARCHITECT MANAGER 06/17/2016 9:24 AM APPLICATION ARCHITECT MANAGER Alfred Rios MD LAB - BLOOD HESHAM BA[facility] [address] [place] [address] * (ABNORMAL) UA reflex to Microscopic and Culture (05/06/2015 2:35 PM CDT) Pathologist [facility] Color Urine Light Yellow [facility] Appearance Urine Clear [facility] Glucose Urine Negative NEG mg/dL [facility] Bilirubin Urine Negative NEG [facility] Ketones Urine 5(A) NEG mg/dL [facility] Specific [place] Urine 1.039(H) 1.003 - 1.035 [facility] Blood Urine Negative NEG [facility] pH Urine 6.5 5.0 - 7.0 pH [facility] Protein Albumin Urine Negative NEG mg/dL [facility] Urobilinogen mg/dL Normal 0.0 - 2.0 mg/dL [facility] Nitrite Urine Negative NEG [facility] Leukocyte Esterase Urine Negative NEG [facility] Source Midstream Urine [facility] Urine specimen (specimen) 05/06/2015 2:35 PM CDT 05/06/2015 2:49 PM CDT José Miguel Mcclelland PA-C LAB - URINE [facility] [address] [address], [facility] [phone] from Last 3 Months or Most Recently Relevant to Health Maintenance Advance Directives For more information, please contact: [phone] Documents on File Type Date Recorded Patient Cruise Counselor Expl anation Advance Directives and Living Will 05/28/2015 Health Care Directiv e 02/26/05 * Full Code (Latest Code Status on File) Date Activated Date Inactivated Comments 05/25/2015 9:49 AM 06/16/2023 8:33 AM * Full Code Date Activated Date Inactivated Comments 05/22/2015 12:15 PM 05/25/2015 9:49 AM Care Teams Writer Producer Relationship Specialty Start Date End Date Alfred Rios MD PCP - General Family Practice 04/18/15 [place] [address] [facility] [id number] Assigned PCP 09/01/[address] [facility] [address] [id number] Cardiac Rehabilitation Therapist 06/29/23 06/29/24 Anthony Ballesteros MD [address] [place] [id number] Assigned Heart and Vascular Provider 10/02/23
--- OUTSIDE RECORDS SUMMARY | 2023-11-08 14:17 | XMS_ITS | Encounter Summary ---
Author Name Unknown Organization [place] Address [address] [place] [address]. [place] [address] Care Team Providers Care Medical Officer Psychiatry Name Role Phone Alfred Rios MD Primary Care Provider + Alfred Rios MD Unavailable [phone] Dixie Bridges Unavailable [phone] Natalia Forman APRN FOREIGN CLERK Unavailable Unavaila ble Reason for Visit * Rehab Therapy Cardiac Therapy (Routine: Next available opening) - Authorized Specialty Diagnoses / Procedures Referred By Ghazala shah Referred To Contact CARDIAC REHAB Diagnoses CAD (coronary artery disease) [address] [address] Referral ID Status Reason Start Date Expiration Date V isits Requested Visits Authorized [id number] Authorized 06/24/2023 07/11/2024 365 365 Encounter Details Date Type Department Care Team (Latest Contact Info) Description 08/18/2023 1:55 PM LACE WINDER - 08/18/2023 11:59 PM LACE WINDER Hospital Encounter [facility] Cardiac and Pulmonary Rehabilitation [address] [place] [address] Anthony Ballesteros MD [address] [id number] 2, Rh Cardiac Rehab Discharge Disposition: Home [...] CDT Gender Identity Male 08/26/2020 6:37 PM LACE WINDER Sexual Orientation Straight 08/26/2020 6: 37 PM LACE WINDER documented as of this encounter Medications at [...] 75 MG tabletIndications:Coron stacy artery disease involving [place] coronary artery of [place] heart, unspecified whether angina present Take 300 mg (4 tablets) once on the day you discontinue Brilinta, then continue at 75 mg daily. 94 tablet 3 07/13/2023 gabapentin (NEURONTIN) 300 MG capsule Take 300 mg by mouth 2 times daily 03/16/2023 metoprolol tartrate (LOPRESSOR) 50 MG tabletIndications:Coron stacy artery disease involving [place] coronary artery of [place] heart, unspecified whether angina present Take 1 tablet (50 mg) by mouth 2 times daily 90 tablet 11 06/09/2023 naproxen (NAPROSYN) 500 MG tabletIndications:Bilat eral hip pain TAKE 1 TABLET (500 MG) BY MOUTH 2 TIMES DAILY NEEDED FOR MODERATE PAIN 60 tablet 1 12/04/2022 nitroGLYcerin (NITROSTAT) 0.4 MG sublingual tabletIndications:Coron stacy artery disease involving [place] coronary artery of [place] heart, unspecified whether angina present For chest pain place 1 tablet under the tongue every 5 minutes for 3 doses. If symptoms persist 5 minutes after 1st dose call 911. 90 tablet 11 06/09/2023 documented as of this encounter Plan of Treatment Upcoming Encounters Date Type Department Care Team (Late st Contact Info) Description 01/27/2024 8:30 AM CDT Lab [facility] [address] [place] [address] 01/28/2024 9:00 AM CDT Office Visit [facility] [address] [place] [address] [place] [phone] Natalia Forman APRN CNP Manoles, Michael Jon, MD [address] [place] [id number] documented as of this encounter Visit Diagnoses Not on filedocumented in this encounter Additional Health Concerns Assessment Noted Time PHQ-9 Depression Total Score: 3 05/25/20 20 7:02 AM LACE WINDER documented as of this encounter Care Teams Medical Officer Psychiatry Relationship Specialty Start Date End Date Alfred Rios MD PCP - General Family Practice 04/18/15 [place] [address] [address] [id number] Assigned PCP 09/01/20 Dixie Bridges EP [facility] [address] [id number] Cardiac Rehabilitation Therapist 06/29/23 06/29/24 Natalia Forman APRN FOREIGN CLERK Assigned Heart and Vascular Provider 08/05/23 10/01/23 documented as of this encounter
--- OUTSIDE RECORDS SUMMARY | 2023-11-08 14:17 | XMS_ITS | Encounter Summary ---
Author Name Unknown Organization [place] Address [address] [place] [address]. [place] [address] Care Team Providers Care Manager Document Control Name Role Phone Alfred Rios MD Primary Care Provider + Alfred Rios MD Unavailable [phone] Dixie Bridges Unavailable [phone] Natalia Forman APRN SHANK MAKER Unavailable Unavaila ble Reason for Visit * Rehab Therapy Cardiac Therapy (Routine: Next available opening) - Authorized Specialty Diagnoses / Procedures Referred By Ghazala shah Referred To Contact CARDIAC REHAB Diagnoses CAD (coronary artery disease) [address] [address] Referral ID Status Reason Start Date Expiration Date V isits Requested Visits Authorized [id number] Authorized 06/24/2023 07/11/2024 365 365 Encounter Details Date Type Department Care Team (Latest Contact Info) Description 08/25/2023 1:57 PM TOLL LINE MECHANIC - 08/25/2023 11:59 PM TOLL LINE MECHANIC Hospital Encounter [facility] Cardiac and Pulmonary Rehabilitation [address] [place] [address] Anthony Ballesteros MD [address] [id number] 2, Rh Cardiac Rehab Discharge Disposition: Home [...] CDT Gender Identity Male 08/26/2020 6:37 PM TOLL LINE MECHANIC Sexual Orientation Straight 08/26/2020 6: 37 PM TOLL LINE MECHANIC documented as of this encounter Medications at [...] 75 MG tabletIndications:Coron stacy artery disease involving [place] coronary artery of [place] heart, unspecified whether angina present Take 300 mg (4 tablets) once on the day you discontinue Brilinta, then continue at 75 mg daily. 94 tablet 3 07/13/2023 gabapentin (NEURONTIN) 300 MG capsule Take 300 mg by mouth 2 times daily 03/16/2023 metoprolol tartrate (LOPRESSOR) 50 MG tabletIndications:Coron stacy artery disease involving [place] coronary artery of [place] heart, unspecified whether angina present Take 1 tablet (50 mg) by mouth 2 times daily 90 tablet 11 06/09/2023 naproxen (NAPROSYN) 500 MG tabletIndications:Bilat eral hip pain TAKE 1 TABLET (500 MG) BY MOUTH 2 TIMES DAILY NEEDED FOR MODERATE PAIN 60 tablet 1 12/04/2022 nitroGLYcerin (NITROSTAT) 0.4 MG sublingual tabletIndications:Coron stacy artery disease involving [place] coronary artery of [place] heart, unspecified whether angina present For chest pain place 1 tablet under the tongue every 5 minutes for 3 doses. If symptoms persist 5 minutes after 1st dose call 911. 90 tablet 11 06/09/2023 documented as of this encounter Plan of Treatment Upcoming Encounters Date Type Department Care Team (Late st Contact Info) Description 01/27/2024 8:30 AM CDT Lab [facility] [address] [place] [address] 01/28/2024 9:00 AM CDT Office Visit [facility] [address] [place] [address] [place] [phone] Natalia Forman APRN CNP Manoles, Michael Jon, MD [address] [id number] documented as of this encounter Visit Diagnoses Not on filedocumented in this encounter Additional Health Concerns Assessment Noted Time PHQ-9 Depression Total Score: 3 05/25/20 20 7:02 AM TOLL LINE MECHANIC documented as of this encounter Care Teams Manager Document Control Relationship Specialty Start Date End Date Alfred Rios MD PCP - General Family Practice 04/18/15 [place] [address] [address] [id number] Assigned PCP 09/01/20 Dixie Bridges EP [facility] [address] [id number] Cardiac Rehabilitation Therapist 06/29/23 06/29/24 Natalia Forman APRN SHANK MAKER Assigned Heart and Vascular Provider 08/05/23 10/01/23 documented as of this encounter
--- OUTSIDE RECORDS SUMMARY | 2023-11-08 14:17 | XMS_ITS | Encounter Summary ---
Author Name Unknown Organization [place] Address [facility] [place] [address] Care Team Providers Care Footwear Sales Associate Name Role Phone Alfred Rios MD Primary Care Provider + Alfred Rios MD Unavailable [phone] Dixie Bridges EP Unavailable [phone] Natalia Forman APRN LANDSCAPE ARCHITECT Unavailable Unavaila ble Encounter Details Date Type Department Care Team (Late st Contact Info) Description 09/07/2023 [facility] Medical Advice [facility] [id number] [place] [address] [address] [place] [address] Anthony Ballesteros MD [address] [facility] [address] [place], [place] [address] Social History Tobacco Use Types Packs/Day Years [...] CDT Gender Identity Male 08/26/2020 6:37 PM IMPORTER OR EXPORTER Sexual Orientation Straight 08/26/2020 6: 37 PM IMPORTER OR EXPORTER documented as of this encounter Miscellaneous Notes * Telephone Encounter - Eloisa Lee RN - 09/07/2023 3:08 PM IMPORTER OR EXPORTER See alternate encounter dated 09/07/23. Will close this encounter. Eloisa Lee RN BAN 3:08 PM 09/07/2023 CORE nurse line M-F 8a-4p: [phone] RTER OR EXPORTER documented in this encounter Plan of Treatment Upcoming Encounters Date Type Department Care Team (Late st Contact Info) Description 01/27/2024 8:30 AM CDT Lab [facility] [address] [place] [phone] 01/28/2024 9:00 AM CDT Office Visit [facility] [address] [facility] [address] [place] [phone] Natalia Forman APRN CNP Manoles, Michael Jon, MD [address] [place], [place] [address] documented as of this encounter Visit Diagnoses Not on filedocumented in this encounter Additional Health Concerns Assessment Noted Time PHQ-9 Depression Total Score: 3 05/25/20 20 7:02 AM IMPORTER OR EXPORTER documented as of this encounter Care Teams Footwear Sales Associate Relationship Specialty Start Date End Date Alfred Rios MD PCP - General Family Practice 04/18/15 [place] [address] [place] [address] Assigned PCP 09/01/20 Dixie Bridges EP [facility] [address] [address] Cardiac Rehabilitation Therapist 06/29/23 06/29/24 Natalia Forman APRN LANDSCAPE ARCHITECT Assigned Heart and Vascular Provider 08/05/23 10/01/23 documented as of this encounter
--- OUTSIDE RECORDS SUMMARY | 2023-11-08 14:17 | XMS_ITS | Encounter Summary ---
Author Name Unknown Organization [place] Address [address] [place] [address]. [place] [address] Care Team Providers Care Quality Improvement Coordinator Name Role Phone Alfred Rios MD Primary Care Provider + Alfred Rios MD Unavailable [phone] Dixie Bridges EP Unavailable [phone] Natalia Forman APRN REHABILITATION THERAPY TECHNICIAN Unavailable Unavaila ble Encounter Details Date Type Department Care Team (Latest Contact Info) Description 08/25/2023 Travel Social History Tobacco Use Types Packs/Day [...] CDT Gender Identity Male 08/26/2020 6:37 PM CRIMINAL RESEARCHER Sexual Orientation Straight 08/26/2020 6: 37 PM CRIMINAL RESEARCHER documented as of this encounter Plan of Treatment Upcoming Encounters Date Type Department Care Team (Late st Contact Info) Description 01/27/2024 8:30 AM CDT [facility] [address] [place] [address] 01/28/2024 9:00 AM CDT Office Visit [facility] [address] [facility] [address] [place] [phone] Natalia Forman APRN CNP Manoles, Michael Jon, MD [address] [place] [address] documented as of this encounter Visit Diagnoses Not on filedocumented in this encounter Additional Health Concerns Assessment Noted Time PHQ-9 Depression Total Score: 3 05/25/20 20 7:02 AM CRIMINAL RESEARCHER documented as of this encounter Care Teams Quality Improvement Coordinator Relationship Specialty Start Date End Date Alfred Rios MD PCP - General Family Practice 04/18/15 [place] [address] [place] [address] Assigned PCP 09/01/20 Dixie Bridges EP [facility] [address] [address] Cardiac Rehabilitation Therapist 06/29/23 06/29/24 Natalia Forman APRN REHABILITATION THERAPY TECHNICIAN Assigned Heart and Vascular Provider 08/05/23 10/01/23 documented as of this encounter
--- OUTSIDE RECORDS SUMMARY | 2023-11-08 14:17 | XMS_ITS | Encounter Summary ---
Author Name Unknown Organization [place] Address [address] [place] [address]. [place] [address] Care Team Providers Care Farm Machinery Assembler Name Role Phone Alfred Rios MD Primary Care Provider + Alfred Rios MD Unavailable [phone] Dixie Bridges Unavailable [phone] Natalia Forman APRN SCREEN TACKER Unavailable Unavaila Anthony Etienne MD Unavailable [phone] Encounter Details Date Type Department Care Team (Late st Contact Info) Description 09/30/2023 [facility] Medical Advice [address] [address] Savage Hayes [place] Social History Tobacco Use Types Packs/Day Years [...] CDT Gender Identity Male 08/26/2020 6:37 PM BUFFING MACHINE OPERATOR SEMIAUTOMATIC Sexual Orientation Straight 08/26/2020 6: 37 PM BUFFING MACHINE OPERATOR SEMIAUTOMATIC documented as of this encounter Plan of Treatment Upcoming Encounters Date Type Department Care Team (Late st Contact Info) Description 01/27/2024 8:30 AM CDT Lab [facility] [address] [place] [address] 01/28/2024 9:00 AM CDT Office [facility] [address] [facility] [address] [place] [address] Natalia Forman APRN SCREEN TACKER Anthony Ballesteros MD [address] [place] [id number] documented as of this encounter Visit Diagnoses Not on filedocumented in this encounter Additional Health Concerns Assessment Noted Time PHQ-9 Depression Total Score: 3 05/25/20 20 7:02 AM BUFFING MACHINE OPERATOR SEMIAUTOMATIC documented as of this encounter Care Teams Farm Machinery Assembler Relationship Specialty Start Date End Date Alfred Rios MD PCP - General Family Practice 04/18/15 [place] [address] [address] [address] Assigned PCP 09/01/20 Dixie Bridges EP [facility] [address] [place] [address] Cardiac Rehabilitation Therapist 06/29/23 06/29/24 Ntaalia Forman APRN SCREEN TACKER Assigned Heart and Vascular Provider 08/05/23 10/01/23 Anthony Ballesteros MD [address] [place] [address] Assigned Heart and Vascular Provider 10/02/23 documented as of this encounter
--- OUTSIDE RECORDS SUMMARY | 2023-11-08 14:17 | XMS_ITS | Encounter Summary ---
Author Name Unknown Organization [place] Address [address] [place] [address]. [place] [address] Care Team Providers Care Fire Lieutenant Name Role Phone Alfred Rios MD Primary Care Provider + Alfred Rios MD Unavailable [phone] Dixie Bridges Unavailable [phone] Anthony Ballesteros MD Unavailable [phone] Encounter Details Date Type Department Care Team (Late st Contact Info) Description 10/07/2023 [facility] Heart [address] [place] [phone] Ryalnd Moseley Social History Tobacco Use Types Packs/Day Years [...] CDT Gender Identity Male 08/26/2020 6:37 PM AUDIOVISUAL AIDS TECHNICIAN Sexual Orientation Straight 08/26/2020 6: 37 PM AUDIOVISUAL AIDS TECHNICIAN documented as of this encounter Plan of Treatment Upcoming Encounters Date Type Department Care Team (Late st Contact Info) Description 01/27/2024 8:30 AM CDT Lab [facility] [address] [place] [phone] 01/28/2024 9:00 AM CDT Office [facility] [address] [facility] [address] [place] [address] Natalia Forman APRN CNP Manoles, Michael Jon, MD [address] [place] [address] documented as of this encounter Visit Diagnoses Not on filedocumented in this encounter Additional Health Concerns Assessment Noted Time PHQ-9 Depression Total Score: 3 05/25/20 20 7:02 AM AUDIOVISUAL AIDS TECHNICIAN documented as of this encounter Care Teams Fire Lieutenant Relationship Specialty Start Date End Date Alfred Riso MD PCP - General Family Practice 04/18/15 [place] [address] [address] [address] Assigned PCP 09/01/20 Dixie Bridges EP [facility] [address] [place] [address] Cardiac Rehabilitation Therapist 06/29/23 06/29/24 Anthony Ballesteros MD [address] [place] [address] Assigned Heart and Vascular Provider 10/02/23 documented as of this encounter
--- OUTSIDE RECORDS SUMMARY | 2023-11-08 14:17 | XMS_ITS | Encounter Summary ---
Author Name Unknown Organization [place] Address [address] [place] [address]. [place] [address] Care Team Providers Care Production Control Technologist Name Role Phone Alfred Rios MD Primary Care Provider + Alfred Rios MD Unavailable [phone] Dixie Bridges EP Unavailable [phone] Natalia Forman APRN SIGN PAINTER Unavailable Unavaila ble Encounter Details Date Type Department Care Team (Latest Contact Info) Description 08/23/2023 Travel Social History Tobacco Use Types Packs/Day [...] CDT Gender Identity Male 08/26/2020 6:37 PM POWERTRAIN CONTROL SYSTEMS ENGINEER Sexual Orientation Straight 08/26/2020 6: 37 PM POWERTRAIN CONTROL SYSTEMS ENGINEER documented as of this encounter Plan of Treatment Upcoming Encounters Date Type Department Care Team (Late st Contact Info) Description 01/27/2024 8:30 AM CDT [facility] [address] [place] [address] 01/28/2024 9:00 AM CDT Office Visit [facility] Heart [facility] [address] [facility] [address] [place] [address] Natalia Forman APRN CNP Manoles, Michael Jon, MD [address] [place] [address] documented as of this encounter Visit Diagnoses Not on filedocumented in this encounter Additional Health Concerns Assessment Noted Time PHQ-9 Depression Total Score: 3 05/25/20 20 7:02 AM POWERTRAIN CONTROL SYSTEMS ENGINEER documented as of this encounter Care Teams Production Control Technologist Relationship Specialty Start Date End Date Alfred Rios MD PCP - General Family Practice 04/18/15 [place] [address] [place] [address] Assigned PCP 09/01/20 Dixie Bridges EP [facility] [address] [address] Cardiac Rehabilitation Therapist 06/29/23 06/29/24 Natalia Forman APRN SIGN PAINTER Assigned Heart and Vascular Provider 08/05/23 10/01/23 documented as of this encounter
--- OUTSIDE RECORDS SUMMARY | 2023-11-08 14:17 | XMS_ITS | Encounter Summary ---
Author Name Unknown Organization [place] Address [address] [place] [address]. [place] [address] Care Team Providers Care Recharger Name Role Phone Alfred Rios MD Primary Care Provider + Alfred Rios MD Unavailable [phone] Dixie Bridges EP Unavailable [phone] Natalia Forman APRN QUARRY SUPERVISOR Unavailable Unavaila ble Encounter Details Date Type Department Care Team (Latest Contact Info) Description 08/11/2023 Travel Social History Tobacco Use Types Packs/Day [...] CDT Gender Identity Male 08/26/2020 6:37 PM FAMILY PRESERVATION OFFICER Sexual Orientation Straight 08/26/2020 6: 37 PM FAMILY PRESERVATION OFFICER documented as of this encounter Plan of Treatment Upcoming Encounters Date Type Department Care Team (Late st Contact Info) Description 01/27/2024 8:30 AM CDT [facility] [address] [place] [address] 01/28/2024 9:00 AM CDT Office Visit [facility] Heart [facility] [address] [facility] [address] [place] [phone] Natalia Forman APRN CNP Manoles, Michael Jon, MD [address] [place] [address] documented as of this encounter Visit Diagnoses Not on filedocumented in this encounter Additional Health Concerns Assessment Noted Time PHQ-9 Depression Total Score: 3 05/25/20 20 7:02 AM FAMILY PRESERVATION OFFICER documented as of this encounter Care Teams Recharger Relationship Specialty Start Date End Date Alfred Rios MD PCP - General Family Practice 04/18/15 [place] [address] [place] [address] Assigned PCP 09/01/20 Dixie rBidges EP [facility] [address] [address] Cardiac Rehabilitation Therapist 06/29/23 06/29/24 Natalia Forman APRN QUARRY SUPERVISOR Assigned Heart and Vascular Provider 08/05/23 10/01/23 documented as of this encounter
--- OUTSIDE RECORDS SUMMARY | 2023-11-08 14:17 | XMS_ITS | Encounter Summary ---
Author Name Unknown Organization [place] Address [facility]0 [facility] [place] [address] Care Team Providers Care Customs Opener Verifier Packer Name Role Phone Alfred Rios MD Primary Care Provider + Alfred Rios MD Unavailable [phone] Dixie Bridges Unavailable [phone] Natalia Forman APRN UNIX DEVELOPER Unavailable Unavaila Anthony Etienne MD Unavailable [phone] Encounter Details Date Type Department Care Team (Late st Contact Info) Description 09/30/2023 Telephone [facility] [address] [place] [address] [place] [address] [place] [address] Social History Tobacco Use Types Packs/Day [...] CDT Gender Identity Male 08/26/2020 6:37 PM SENIOR INSIGHT MANAGER INTERNATIONAL Sexual Orientation Straight 08/26/2020 6: 37 PM SENIOR INSIGHT MANAGER INTERNATIONAL documented as of this encounter Plan of Treatment Upcoming Encounters Date Type Department Care Team (Late st Contact Info) Description 01/27/2024 8:30 AM CDT Lab [facility] [address] [place] [address] 01/28/2024 9:00 AM CDT Office Visit [facility] [address] [facility] [address] [place] [address] Natalia Forman APRN UNIX DEVELOPER Anthony Ballesteros MD [address] [place] [id number] documented as of this encounter Visit Diagnoses Not on filedocumented in this encounter Additional Health Concerns Assessment Noted Time PHQ-9 Depression Total Score: 3 05/25/20 20 7:02 AM SENIOR INSIGHT MANAGER INTERNATIONAL documented as of this encounter Care Teams Customs Opener Verifier Packer Relationship Specialty Start Date End Date Alfred Rios MD PCP - General Family Practice 04/18/15 [place] [address] [address] [address] Assigned PCP 09/01/20 Dixie Bridges EP [facility] [address] [place] [address] Cardiac Rehabilitation Therapist 06/29/23 06/29/24 Natalia Forman APRN UNIX DEVELOPER Assigned Heart and Vascular Provider 08/05/23 10/01/23 Anthony Ballesteros MD [address] [place] [address] Assigned Heart and Vascular Provider 10/02/23 documented as of this encounter
--- OUTSIDE RECORDS SUMMARY | 2023-11-08 14:17 | XMS_ITS | Encounter Summary ---
Author Name Unknown Organization [place] Address [address] [place] [address]. [place] [address] Care Team Providers Care Php Mysql Developer Name Role Phone Alfred Rios MD Primary Care Provider + Alfred Rios MD Unavailable [phone] Dixie Bridges EP Unavailable [phone] Natalia Forman APRN CERTIFIED MEDICAL TECHNICIAN Unavailable Unavaila ble Encounter Details Date Type Department Care Team (Latest Contact Info) Description 08/16/2023 Travel Social History Tobacco Use Types Packs/Day [...] CDT Gender Identity Male 08/26/2020 6:37 PM CARBON CUTTER Sexual Orientation Straight 08/26/2020 6: 37 PM CARBON CUTTER documented as of this encounter Plan of Treatment Upcoming Encounters Date Type Department Care Team (Late st Contact Info) Description 01/27/2024 8:30 AM CDT [facility] [address] [place] [address] 01/28/2024 9:00 AM CDT Office Visit [facility] [address] [facility] [address] [place] [address] Natalia Forman APRN CNP Manoles, Michael Jon, MD [address] [place] [address] documented as of this encounter Visit Diagnoses Not on filedocumented in this encounter Additional Health Concerns Assessment Noted Time PHQ-9 Depression Total Score: 3 05/25/20 20 7:02 AM CARBON CUTTER documented as of this encounter Care Teams Php Mysql Developer Relationship Specialty Start Date End Date Alferd Rios MD PCP - General Family Practice 04/18/15 [place] [address] [place] [address] Assigned PCP 09/01/20 Dixie Bridges EP [facility] [address] [address] Cardiac Rehabilitation Therapist 06/29/23 06/29/24 Natalia Forman APRN CERTIFIED MEDICAL TECHNICIAN Assigned Heart and Vascular Provider 08/05/23 10/01/23 documented as of this encounter
--- OUTSIDE RECORDS SUMMARY | 2023-11-08 14:17 | XMS_ITS | Encounter Summary ---
Author Name Unknown Organization [place] Address [address] [place] [address]. [place] [address] Care Team Providers Care Semiconductor Packages Tester Name Role Phone Alfred Rios MD Primary Care Provider + Alfred Rios MD Unavailable [phone] Dixie Bridges Unavailable [phone] Natalia Forman APRN JAVA USER INTERFACE DEVELOPER Unavailable Unavaila ble Reason for Visit * Rehab Therapy Cardiac Therapy (Routine: Next available opening) - Authorized Specialty Diagnoses / Procedures Referred By Ghazala shah Referred To Contact CARDIAC REHAB Diagnoses CAD (coronary artery disease) [address] [address] Referral ID Status Reason Start Date Expiration Date V isits Requested Visits Authorized [id number] Authorized 06/24/2023 07/11/2024 365 365 Encounter Details Date Type Department Care Team (Latest Contact Info) Description 08/11/2023 1:55 PM BAND SAWYER - 08/11/2023 11:59 PM BAND SAWYER Hospital Encounter [facility] Cardiac and Pulmonary Rehabilitation [address] [place] [address] Anthony Ballesteros MD [address] [place] [id number] 2, Rh Cardiac Rehab Discharge Disposition: Home [...] CDT Gender Identity Male 08/26/2020 6:37 PM BAND SAWYER Sexual Orientation Straight 08/26/2020 6: 37 PM BAND SAWYER documented as of this encounter Medications at [...] 75 MG tabletIndications:Coron stacy artery disease involving [place] coronary artery of [place] heart, unspecified whether angina present Take 300 mg (4 tablets) once on the day you discontinue Brilinta, then continue at 75 mg daily. 94 tablet 3 07/13/2023 gabapentin (NEURONTIN) 300 MG capsule Take 300 mg by mouth 2 times daily 03/16/2023 metoprolol tartrate (LOPRESSOR) 50 MG tabletIndications:Coron stacy artery disease involving [place] coronary artery of [place] heart, unspecified whether angina present Take 1 tablet (50 mg) by mouth 2 times daily 90 tablet 11 06/09/2023 naproxen (NAPROSYN) 500 MG tabletIndications:Bilat eral hip pain TAKE 1 TABLET (500 MG) BY MOUTH 2 TIMES DAILY NEEDED FOR MODERATE PAIN 60 tablet 1 12/04/2022 nitroGLYcerin (NITROSTAT) 0.4 MG sublingual tabletIndications:Coron stacy artery disease involving [place] coronary artery of [place] heart, unspecified whether angina present For chest pain place 1 tablet under the tongue every 5 minutes for 3 doses. If symptoms persist 5 minutes after 1st dose call 911. 90 tablet 11 06/09/2023 documented as of this encounter Plan of Treatment Upcoming Encounters Date Type Department Care Team (Late st Contact Info) Description 01/27/2024 8:30 AM CDT Lab [facility] [address] [place] [address] 01/28/2024 9:00 AM CDT Office [facility] [address] [place] [address] [place] [phone] Natalia Forman APRN CNP Manoles, Michael Jon, MD [address] [place] [id number] documented as of this encounter Visit Diagnoses Not on filedocumented in this encounter Additional Health Concerns Assessment Noted Time PHQ-9 Depression Total Score: 3 05/25/20 20 7:02 AM BAND SAWYER documented as of this encounter Care Teams Semiconductor Packages Tester Relationship Specialty Start Date End Date Alfred Rios MD PCP - General Family Practice 04/18/15 [place] [address] [address] [address] Assigned PCP 09/01/20 Dixie Bridges EP [facility] [address] [id number] Cardiac Rehabilitation Therapist 06/29/23 06/29/24 Natalia Forman APRN JAVA USER INTERFACE DEVELOPER Assigned Heart and Vascular Provider 08/05/23 10/01/23 documented as of this encounter
--- OUTSIDE RECORDS SUMMARY | 2023-11-08 14:18 | XMS_ITS | Encounter Summary ---
Author Name Unknown Organization [place] Address [address] [facility] [place] [address] Care Team Providers Care Police Reserves Commander Name Role Phone Alfred Rios MD Primary Care Provider + Alfred Rios MD Unavailable [phone] Anthony Ballesteros MD Unavailable Marilee Mathias BUYER INTERN Unavailable [phone] Dixie Bridges EP Unavailable [phone] Anthony Ballesteros MD Unavailable Natalia Forman APRN EPIC TRAINER Unavailable Unavaila ble Anthony Ballesteros MD Unavailable Encounter Details Date Type Department Care Team (Late st Contact Info) Description 04/09/2023 [facility] [place] [address] [facility] [address] [place] [address] Anthony Ballesteros MD [address] [facility] [address] [place] [address] Social History Tobacco Use Types Packs/Day Years Used Date Smoking Tobacco: Former Cigarettes 1 35 0 10/21/1964 - 10/22/1999 Smokeless Tobacco: Never Alcohol Use Standard Drinks/Week Comments Yes 0 (1 standard drink = 0.6 oz pur e alcohol) One beer most days. PHQ-2 Answer Date Recorded PHQ-2 Score 0 07/03/2021 Adolescent Education Answer Date Record ed Getting School Help Needed Not on file 04/02 Sex and Gender Information Value Date Recorded Sex Assigned at Male 12/31/2020 1:31 PM CDT Gender Identity Male 08/26/2020 6:37 PM SOLDERING MACHINE FEEDER Sexual Orientation Straight 08/26/2020 6: 37 PM SOLDERING MACHINE FEEDER COVID-19 Exposure Response Date Recorded In the last 10 days, have yo u been in contact with someone who was confirmed or suspected to have Coronavirus/COVID-19? No / Unsure 04/05/2023 1:15 PM CDT documented as of this encounter Miscellaneous Notes * Telephone Encounter - Tammy Kendall RN - 04/12/2023 8:01 AM CDT Routing to Dr. Ballesteros, Patient mallika messaged in stating that he is having side effects or fatigue, SOB and chest heaviness. These symptoms were noted at his last office visit in January 2022. He states that he has been experiencing increased symptom severity over the last few months. He went to see a Sewer Pipe Sorter that stated his SOB was not due to his lungs so he is adamant about it being his Metoprolol and would likea different medication. Updated OV on 05/05/23. Echo to be completed on 04/14/23. 01/30/22 OV Since last seen 1 year ago, the patient continues to experience episodes of chest heaviness that occur primarily with exertion but have occasional lyoccurred at rest. He thinks the symptoms have worsened slightly since we last saw him. We have previously evaluated his chest discomfort with stress tests, most recently in 09/2019 that showed good exercise tolerance to 10.9 METs with no ischemia earl normal ejection fraction. At the time of his last visit I also explained that even with a negative nuclear stress test, we cannot entirely exclude a lesion that might benefit from revascularization. PAST MEDICAL HISTORY: 1. Atherosclerotic peripheral vascular [...] no objective signs of ischemia. 3. Dyslipidemia. MEDICATIONS: 1. Aspirin 81 daily. 2. Atorvastatin 40 daily. 3. Metoprolol 25 mg b.i.d. 4. Nitroglycerin sublingual p.r.n. Lexiscan February 2022 The nuclear stress test is negative for inducible myocardial ischemia or infarction. The left ventricular ejection fraction at rest is 68%. The left ventricular ejection fraction at stress is 70%. Left ventricular function is normal. A prior study was conducted on 09/11/2019. This study has no change when compared with the prior study. Please review and advise. Tammy Kendall RN documented in this encounter Plan of Treatment Upcoming Encounters Date Type Department Care Team (Late st Contact Info) Description 01/27/2024 8:30 AM CDT Lab [facility] [address] [place] [address] 01/28/2024 9:00 AM CDT Office Visit [facility] [address] [place] [address] Natalia Forman APRN CNP Manoles, Michael Jon, MD [address] [place] [id number] documented as of this encounter Visit Diagnoses Not on filedocumented in this encounter Additional Health Concerns Assessment Noted Time PHQ-9 Depression Total Score: 3 05/25/20 20 7:02 AM SOLDERING MACHINE FEEDER documented as of this encounter Care Teams Police Reserves Commander Relationship Specialty Start Date End Date Alfred Rios MD PCP - General Family Practice 04/18/15 [place] [address] [address] [address] Assigned PCP 09/01/20 Anthony Ballesteros MD [address] [place] [address] Assigned Heart and Vascular Provider 12/22/20 05/28/23 Marilee Mathias BUYER INTERN [address] [place], [place] [address] Assigned Heart and Vascular Provider 05/29/23 06/11/23 Dixie Bridges EP [facility] [address] [id number] Cardiac Rehabilitation Therapist 06/29/23 06/29/24 Anthony Ballesteros MD [address] [place] [address] Assigned Heart and Vascular Provider 06/12/23 08/04/23 Natalia Forman, FLEET SALES MANAGER EPIC TRAINER Assigned Heart and Vascular Provider 08/05/23 10/01/23 Anthony Ballesteros MD [address] [place] [address] Assigned Heart and Vascular Provider 10/02/23 documented as of this encounter
--- OUTSIDE RECORDS SUMMARY | 2023-11-08 14:18 | XMS_ITS | Encounter Summary ---
Author Name Unknown Organization [place] Address [address] [facility] [place] [address] Care Team Providers Care Dance Choreographer Name Role Phone Alfred Rios MD Primary Care Provider + Alfred Rios MD Unavailable [phone] Anthony Ballesteros MD Unavailable Marilee Mathias MINESWEEPING OFFICER Unavailable [phone] Dixie Bridges EP Unavailable [phone] Anthony Ballesteros MD Unavailable [phone] Natalia Forman APRN EXPLOSIVES TRUCK DRIVER Unavailable Unavaila ble Anthony Ballesteros MD Unavailable [phone] Reason for Visit * Reason Comments Medication Refill Encounter Details Date Type Department Care Team (Late st Contact Info) Description 03/08/2021 Refill [facility] [address] [place] [address] [place] [address] [place] [address] Medication Refill Social History Tobacco Use Types Packs/Day Years Used Date Smoking Tobacco: Former Cigarettes 1 35 0 10/21/1964 - 10/22/1999 Smokeless Tobacco: Never Alcohol Use Standard Drinks/Week Comments Yes 0 (1 standard drink = 0.6 oz pur e alcohol) One beer most days. PHQ-2 Answer Date Recorded PHQ-2 Score 0 12/31/2020 Sex and Gender Information Value Date Recorded Sex Assigned at Male 12/31/2020 1:31 PM CDT Gender Identity Male 08/26/2020 6:37 PM IT HELP DESK MANAGER Sexual Orientation Straight 08/26/2020 6: 37 PM IT HELP DESK MANAGER documented as of this encounter Miscellaneous Notes * Telephone Encounter - Taylor Iglesias RN - 03/10/2021 12:24 PM CDT Routing refill request to provider for review/approval because: Failed protocol for naproxen - due for ALT, AST, cbc and due to age documented in this encounter Plan of Treatment Upcoming Encounters Date Type Department Care Team (Late st Contact Info) Description 01/27/2024 8:30 AM CDT Lab [facility] [address] [place] [phone] 01/28/2024 9:00 AM CDT Office Visit [facility] [address] [facility] [address] [place] [address] Natalia Forman APRN CNP Manoles, Michael Jon, MD [address] [place], [place] [address] documented as of this encounter Visit Diagnoses Diagnosis Bilateral hip pain Pain in joint, pelvic region and thigh documented in this encounter Additional Health Concerns Assessment Noted Time PHQ-9 Depression Total Score: 3 05/25/20 20 7:02 AM IT HELP DESK MANAGER documented as of this encounter Care Teams Dance Choreographer Relationship Specialty Start Date End Date Alfred Rios MD PCP - General Family Practice 04/18/15 [place] [address] [address] [address] Assigned PCP 09/01/20 Anthony Ballesteros MD [address] [place] [address] Assigned Heart and Vascular Provider 12/22/20 05/28/23 Marilee Mathias MINESWEEPING OFFICER [address] [place], [place] [address] Assigned Heart and Vascular Provider 05/29/23 06/11/23 Dixie Bridges EP [facility] [address] [address] Cardiac Rehabilitation Therapist 06/29/23 06/29/24 Anthony Ballesteros MD [address] [place] [address] Assigned Heart and Vascular Provider 06/12/23 08/04/23 Natalia Forman APRN EXPLOSIVES TRUCK DRIVER Assigned Heart and Vascular Provider 08/05/23 10/01/23 Anthony Ballesteros MD [address] [place] [address] Assigned Heart and Vascular Provider 10/02/23 documented as of this encounter
--- OUTSIDE RECORDS SUMMARY | 2023-11-08 14:18 | XMS_ITS | Encounter Summary ---
Author Name Unknown Organization [place] Address [address] [place] [address]. [place] [address] Care Team Providers Care Pricing Intern Name Role Phone Alfred Rios MD Primary Care Provider + Alfred Rios MD Unavailable [phone] Anthony Ballesteros MD Unavailable Marilee Mathias CHILD PROTECTION SPECIALIST Unavailable Dixie Bridges EP Unavailable [phone] Anthony Ballesteros MD Unavailable [phone] Natalia Forman REPLENISHMENT ASSOCIATE WRITING CENTER DIRECTOR Unavailable Unavaila ble Anthony Ballesteros MD Unavailable Reason for Visit * Reason Onset Date Comments Refill Request 05/20/2021 Metoprolol Encounter Details Date Type Department Care Team (Late st Contact Info) Description 05/20/2021 My[facility] [address] [address] [place] [address] [address] [place], [place] [id number] Refill Request (Metoprolol) Social History Tobacco Use Types Packs/Day Years [...] CDT Gender Identity Male 08/26/2020 6:37 PM CUSTOMER SOLUTIONS ARCHITECT Sexual Orientation Straight 08/26/2020 6: 37 PM CUSTOMER SOLUTIONS ARCHITECT documented as of this encounter Miscellaneous Notes * Telephone Encounter - Regina Burrows RN - 05/21/2021 4:29 PM CST Duplicate request. OMER SOLUTIONS ARCHITECT documented in this encounter Plan of Treatment Upcoming Encounters Date Type Department Care Team (Late st Contact Info) Description 01/27/2024 8:30 AM CDT Lab [facility] [address] [place] [address] 01/28/2024 9:00 AM CDT Office [facility] [address] [place] [address] [place] [address] Natalia Forman APRN CNP Manoles, Michael Jon, MD [address] [facility] [address] [place] [address] documented as of this encounter Visit Diagnoses Diagnosis Essential hypertension, benign documented in this encounter Additional Health Concerns Assessment Noted Time PHQ-9 Depression Total Score: 3 05/25/20 20 7:02 AM CUSTOMER SOLUTIONS ARCHITECT documented as of this encounter Care Teams Pricing Intern Relationship Specialty Start Date End Date Alfred Rios MD PCP - General Family Practice 04/18/15 [place] [address] [place] [address] Assigned PCP 09/01/20 Anthony Ballesteros MD [address] [place] [address] Assigned Heart and Vascular Provider 12/22/20 05/28/23 Marilee Mathias NP [address] [place], [place] [address] Assigned Heart and Vascular Provider 05/29/23 06/11/23 Dixie Bridges EP [facility] [address] [address] Cardiac Rehabilitation Therapist 06/29/23 06/29/24 Anthony Ballesteros MD [address] [place] [address] Assigned Heart and Vascular Provider 06/12/23 08/04/23 Natalia Forman APRN WRITING CENTER DIRECTOR Assigned Heart and Vascular Provider 08/05/23 10/01/23 Anthony Ballesteros MD [address] [place] [address] Assigned Heart and Vascular Provider 10/02/23 documented as of this encounter
--- OUTSIDE RECORDS SUMMARY | 2023-11-08 14:18 | XMS_ITS | Encounter Summary ---
Author Name Unknown Organization [place] Address [address] [place] [address] Care Team Providers Care Application Support Consultant Name Role Phone Alfred Rios MD Primary Care Provider + Anthony Ballesteros MD Unavailable [phone] Alfred Rios MD Unavailable [phone] Alfred Rios MD Unavailable [phone] Murali Cadet MD Unavailable [phone] Anthony Ballesteros MD Unavailable Marilee Mathias NP Unavailable [phone] Dixie Bridges Unavailable [phone] Anthony Ballesteros MD Unavailable [phone] Natalia Forman APRN SOCIAL SCIENCE TEACHER Unavailable Unavaila ble Anthony Ballesteros MD Unavailable [phone] Encounter Details Date Type Department Care Team (Late st Contact Info) Description 08/21/2020 [facility] [place] [address] [facility] [place] [address] Murali Cadet MD [address] [address] Social History Tobacco Use Types Packs/Day Years Used Date Smoking Tobacco: Former Cigarettes 1 35 0 10/21/1964 - 10/22/1999 Smokeless Tobacco: Never Alcohol Use Standard Drinks/Week Comments Yes 0 (1 standard drink = 0.6 oz pur e alcohol) 1-2 beers daily PHQ-2 Answer Date Recorded PHQ-2 Score 2 04/14/2019 Sex and Gender Information Value Date Recorded Sex Assigned at Male 12/31/2020 1:31 PM CDT Gender Identity Male 08/26/2020 6:37 PM MISSION ANALYST Sexual Orientation Straight 08/26/2020 6: 37 PM MISSION ANALYST documented as of this encounter Plan of Treatment Upcoming Encounters Date Type Department Care Team (Late st Contact Info) Description 01/27/2024 8:30 AM CDT Lab [facility] [address] [place] [address] 01/28/2024 9:00 AM CDT Office Visit [facility] [address] [place] [address] [address] [place] [address] Natalia Forman APRN SOCIAL SCIENCE TEACHER Atnhony Ballesteros MD [address] [place] [address] documented as of this encounter Visit Diagnoses Not on filedocumented in this encounter Additional Health Concerns Assessment Noted Time PHQ-9 Depression Total Score: 3 05/25/20 20 7:02 AM MISSION ANALYST documented as of this encounter Care Teams Application Support Consultant Relationship Specialty Start Date End Date Alfred iRos MD PCP - General Family Practice 04/18/15 Anthony Ballesteros MD [address] [place] [address] Assigned Heart and Vascular Provider 05/03/20 09/24/20 [place] [address] [address] [address] Assigned PCP 09/01/20 [place] [address] [address] [place], [place] [address] Assigned PCP 06/02/20 08/31/20 Murali Cadet MD [address] [place] [address] Assigned Heart and Vascular Provider 09/25/20 12/21/20 Anthony Ballesteros MD [address] [place] [address] Assigned Heart and Vascular Provider 12/22/20 05/28/23 Marilee Mathias WASTE MINIMIZATION TECHNICIAN [address] [place], [place] [address] Assigned Heart and Vascular Provider 05/29/23 06/11/23 Dixie Bridges EP [facility] [address] [place] [address] Cardiac Rehabilitation Therapist 06/29/23 06/29/24 Anthony Ballesteros MD [address] [place] [address] Assigned Heart and Vascular Provider 06/12/23 08/04/23 Natalia Forman APRN SOCIAL SCIENCE TEACHER Assigned Heart and Vascular Provider 08/05/23 10/01/23 Anthony Ballesteros MD [address] [place] [address] Assigned Heart and Vascular Provider 10/02/23 documented as of this encounter
--- OUTSIDE RECORDS SUMMARY | 2023-11-08 14:18 | XMS_ITS | Encounter Summary ---
Author Name Unknown Organization [place] Address [facility] [address] Care Team Providers Care Rules Examiner Name Role Phone Alfred Rios MD Primary Care Provider + Alfred Rios MD Unavailable [phone] Anthony Ballesteros MD Unavailable [phone] Marilee Mathias NAILER HAND Unavailable [phone] Dixie Bridges EP Unavailable [phone] Anthony Ballesteros MD Unavailable Natalia Forman RIGGING HELPER NUTRITION SERVICES AIDE Unavailable Unavaila ble Anthony Ballesteros MD Unavailable Reason for Visit * Reason Onset Date Comments Refill Request 10/13/2021 nitroGLYcerin (N ITROSTAT) 0.4 MG sublingual tablet Encounter Details Date Type Department Care Team (Late st Contact Info) Description 10/13/2021 Refill [facility] [address] [place] [address] [place] [address] [place] [address] Refill Request (nitroGLYcerin (NITROSTAT) 0.4 MG sublingual tablet) Social History Tobacco Use Types Packs/Day Years Used Date Smoking Tobacco: Former Cigarettes 1 35 0 10/21/1964 - 10/22/1999 Smokeless Tobacco: Never Alcohol Use Standard Drinks/Week Comments Yes 0 (1 standard drink = 0.6 oz pur e alcohol) One beer most days. PHQ-2 Answer Date Recorded PHQ-2 Score 0 07/03/2021 Sex and Gender Information Value Date Recorded Sex Assigned at Male 12/31/2020 1:31 PM CDT Gender Identity Male 08/26/2020 6:37 PM RACING MECHANIC Sexual Orientation Straight 08/26/2020 6: 37 PM RACING MECHANIC documented as of this encounter Miscellaneous Notes * Telephone Encounter - Sol Alicia RN - 10/14/2021 2:32 PM CDT Prescription approved per [facility] Refill Protocol. Sol Alicia RN on 10/14/2021 at 2:32 PM documented in this encounter Plan of Treatment Upcoming Encounters Date Type Department Care Team (Late st Contact Info) Description 01/27/2024 8:30 AM CDT Lab [facility] [address] [place] [address] 01/28/2024 9:00 AM CDT Office Visit [facility] [address] [facility] [address] [place] [address] Natalia Forman APRN CNP Manoles, Michael Jon, MD [address] [place], [place] [address] documented as of this encounter Visit Diagnoses Diagnosis Coronary artery disease involving coronary bypass graft of port 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 documented in this encounter Additional Health Concerns Assessment Noted Time PHQ-9 Depression Total Score: 3 05/25/20 20 7:02 AM RACING MECHANIC documented as of this encounter Care Teams Rules Examiner Relationship Specialty Start Date End Date Alfred Rios MD PCP - General Family Practice 04/18/15 [place] [address] [address] [address] Assigned PCP 09/01/20 Anthony Ballesteros MD [address] [place] [address] Assigned Heart and Vascular Provider 12/22/20 05/28/23 Marilee Mathias NAILER HAND [address] [place], [place] [address] Assigned Heart and Vascular Provider 05/29/23 06/11/23 Dixie Bridges EP [facility] [address] [place] [address] Cardiac Rehabilitation Therapist 06/29/23 06/29/24 Anthony Ballesteros MD [address] [place] [address] Assigned Heart and Vascular Provider 06/12/23 08/04/23 Natalia Forman, RIGGING HELPER NUTRITION SERVICES AIDE Assigned Heart and Vascular Provider 08/05/23 10/01/23 Anthony Ballesteros MD [address] [place] [address] Assigned Heart and Vascular Provider 10/02/23 documented as of this encounter
--- OUTSIDE RECORDS SUMMARY | 2023-11-08 14:18 | XMS_ITS | Encounter Summary ---
Author Name Unknown Organization [place] Address [facility] [place] [address] Care Team Providers Care Furnace Helper Name Role Phone Alfred Rios MD Primary Care Provider + Alfred Rios MD Unavailable [phone] Dixie Bridges Unavailable [phone] Anthony Ballesteros MD Unavailable [phone] Reason for Visit * Rehab Therapy Cardiac Therapy (Routine: Next available opening) - Authorized Specialty Diagnoses / Procedures Referred By Ghazala t Referred To Contact CARDIAC REHAB Diagnoses CAD (coronary artery disease) [address] [address] Referral ID Status Reason Start Date Expiration Date V isits Requested Visits Authorized [id number] Authorized 06/24/2023 07/11/2024 365 365 Encounter Details Date Type Department Care Team (Latest Contact Info) Description 08/02/2023 2:00 PM ELECTRICAL & INSTRUMENTATION SUPERVISOR - 08/02/2023 11:59 PM ELECTRICAL & INSTRUMENTATION SUPERVISOR Hospital Encounter [facility] Cardiac and Pulmonary Rehabilitation [address] [place] [address] Anthnoy Ballesteros MD [address] [facility] [address] [place] [id number] 2, Rh Cardiac Rehab Discharge Disposition: Home [...] CDT Gender Identity Male 08/26/2020 6:37 PM ELECTRICAL & INSTRUMENTATION SUPERVISOR Sexual Orientation Straight 08/26/2020 6: 37 PM ELECTRICAL & INSTRUMENTATION SUPERVISOR documented as of this encounter Medications at [...] Info) Description 01/27/2024 8:30 AM CDT Lab [facility] [address] [place] [address] 01/28/2024 9:00 AM CDT Office Visit [facility] [address] [place] [address] [place] [address] Natalia Forman APRN CNP Manoles, Michael Jon, MD [address] [place] [address] documented as of this encounter Visit Diagnoses Not on filedocumented in this encounter Additional Health Concerns Assessment Noted Time PHQ-9 Depression Total Score: 3 05/25/20 20 7:02 AM ELECTRICAL & INSTRUMENTATION SUPERVISOR documented as of this encounter Care Teams Furnace Helper Relationship Specialty Start Date End Date Alfred Rios MD PCP - General Family Practice 04/18/15 [place] [address] [address] [address] Assigned PCP 09/01/20 Dixie Bridges EP [facility] [address] [address] Cardiac Rehabilitation Therapist 06/29/23 06/29/24 Anthony Ballesteros MD [address] [place] [address] Assigned Heart and Vascular Provider 06/12/23 08/04/23 documented as of this encounter
--- OUTSIDE RECORDS SUMMARY | 2023-11-08 14:18 | XMS_ITS | Encounter Summary ---
Author Name Unknown Organization [place] Address [address] [place] [address]. [place] [address] Care Team Providers Care Replanting Machine Crew Name Role Phone Alfred Rios MD Primary Care Provider + Anthony Ballesteros MD Unavailable [phone] Alfred Rios MD Unavailable [phone] Alfred Rios MD Unavailable [phone] Murali Cadet MD Unavailable [phone] Anthony Ballesteros MD Unavailable [phone] Marilee Mathias NP Unavailable [phone] Dix[address] Bridges Unavailable [phone] Anthony Ballesteros MD Unavailable [phone] Natalia Forman APRN BEEF GRINDER Unavailable Unavaila [facility] Anthony Ballesteros MD Unavailable [phone] Reason for Visit * Reason Onset Date Comments Referral 08/19/2020 Physical Therapy Encounter Details Date Type Department Care Team (Late st Contact Info) Description 08/19/2020 MyC Medical Advice [address] [phone] [place] [address] [place] [address] Referral (Physical Therapy) Social History Tobacco Use Types Packs/Day Years [...] CDT Gender Identity Male 08/26/2020 6:37 PM HARDWARE DESIGNER Sexual Orientation Straight 08/26/2020 6: 37 PM HARDWARE DESIGNER documented as of this encounter Miscellaneous Notes * Telephone Encounter - Alfred Rios MD - 08/20/2020 3:07 PM HARDWARE DESIGNER We need an appointment, ideally F2F. Alfred Rios MD WARE DESIGNER documented in this encounter Plan of Treatment Upcoming Encounters Date Type Department Care Team (Late st Contact Info) Description 01/27/2024 8:30 AM CDT Lab [facility] [address] [place] [address] 01/28/2024 9:00 AM CDT Office Visit [facility] [address] [facility] [address] [place] [address] Natalia Forman APRN CNP Manoles, Michael Jon, MD [address] [place] [address] documented as of this encounter Visit Diagnoses Not on filedocumented in this encounter Additional Health Concerns Assessment Noted Time PHQ-9 Depression Total Score: 3 05/25/ 20 7:02 AM HARDWARE DESIGNER documented as of this encounter Care Teams Replanting Machine Crew Relationship Specialty Start Date End Date Alfred Rios MD PCP - General Family Practice 04/18/15 Anthony Ballesteros MD [address] [place] [address] Assigned Heart and Vascular Provider 05/03/20 09/24/20 [place] [address] [address] [place] [id number] Assigned PCP 09/01/20 [place] [address] [address] [place] [address] Assigned PCP 06/02/20 08/31/20 Murali Cadet MD [address] [place] [address] Assigned Heart and Vascular Provider 09/25/20 12/21/20 Anthony Ballesteros MD [address] [place] [address] Assigned Heart and Vascular Provider 12/22/20 05/28/23 Marilee Mathias PLATEN PRESS FEEDER [address] [place], [place] [address] Assigned Heart and Vascular Provider 05/29/23 06/11/23 Dixie Bridges EP [facility] [address] [place] [address] Cardiac Rehabilitation Therapist 06/29/23 06/29/24 Anthony Ballesteros MD [address] [place] [address] Assigned Heart and Vascular Provider 06/12/23 08/04/23 Natalia Forman APRN [facility] Assigned Heart and Vascular Provider 08/05/23 10/01/23 Anthony Ballesteros MD [address] [place] [address] Assigned Heart and Vascular Provider 10/02/23 documented as of this encounter
--- OUTSIDE RECORDS SUMMARY | 2023-11-08 14:18 | XMS_ITS | Encounter Summary ---
Author Name Unknown Organization [place] Address Replaced by [facility] [place] [address] Care Team Providers Care Distribution Operation Supervisor Name Role Phone Alfred Rios MD Primary Care Provider + Alfred Rios MD Unavailable [phone] Murali Cadet MD Unavailable [phone] Anthony Ballesteros MD Unavailable [phone] Marilee Mathias NP Unavailable Dixie Bridges Unavailable [phone] Anthony Ballesteros MD Unavailable [phone] Natalia Forman APRN SACK DEPARTMENT SUPERVISOR Unavailable Unavaila ble Anthony Ballesteros MD Unavailable [phone] Reason for Visit * Reason Comments Medication Refill Encounter Details Date Type Department Care Team (Late st Contact Info) Description 10/10/[address], [address] [place] [address] [place] [address] [place] [address] Medication Refill Social History Tobacco Use Types Packs/Day Years Used Date Smoking Tobacco: Former Cigarettes 1 35 0 10/21/1964 - 10/22/1999 Smokeless Tobacco: Never Alcohol Use Standard Drinks/Week Comments Yes 0 (1 standard drink = 0.6 oz pur e alcohol) One beer most days. PHQ-2 Answer Date Recorded PHQ-2 Score 2 04/14/2019 Sex and Gender Information Value Date Recorded Sex Assigned at Male 12/31/2020 1:31 PM CDT Gender Identity Male 08/26/2020 6:37 PM BI TRI OPERATOR Sexual Orientation Straight 08/26/2020 6: 37 PM BI TRI OPERATOR COVID-19 Exposure Response Date Recorded In the last month, have you been in contact with someone who was confirmed or suspected to have Coronavirus / COVID-19? No / Unsure 10/02/2020 12:50 PM CDT documented as of this encounter Miscellaneous Notes * Telephone Encounter - Sherri Deluna RN - 10/11/2020 10:51 AM CDT Prescription approved per [facility] Refill Protocol. Sherri Deluna RN [facility] -- Triage Nurse documented in this encounter Plan of Treatment Upcoming Encounters Date Type Department Care Team (Late st Contact Info) Description 01/27/2024 8:30 AM CDT Lab [facility] [address] [place] [phone] 01/28/2024 9:00 AM CDT Office Visit [facility] [address] [place] [address] [address] [place] [address] Natalia Forman APRN CNP Manoles, Michael Jon, MD [address] [place], [place] [address] documented as of this encounter Visit Diagnoses Diagnosis Coronary artery disease involving coronary bypass graft of [place] heart without angina pectoris documented in this encounter Additional Health Concerns Assessment Noted Time PHQ-9 Depression Total Score: 3 05/25/20 20 7:02 AM BI TRI OPERATOR documented as of this encounter Care Teams Distribution Operation Supervisor Relationship Specialty Start Date End Date Alfred Rios MD PCP - General Family Practice 04/18/15 [place] [address] [place] [address] Assigned PCP 09/01/20 Murali Cadet MD [address] [place] [address] Assigned Heart and Vascular Provider 09/25/20 12/21/20 Anthony Ballesteros MD [address] [place] [address] Assigned Heart and Vascular Provider 12/22/20 05/28/23 Marilee Mathias DIRECTOR COST [address] [place], [place] [address] Assigned Heart and Vascular Provider 05/29/23 06/11/23 Dixie Bridges EP [facility] [address] [place] [address] Cardiac Rehabilitation Therapist 06/29/23 06/29/24 Anthony Ballesteros MD [address] [place] [address] Assigned Heart and Vascular Provider 06/12/23 08/04/23 Natalia Forman APRN SACK DEPARTMENT SUPERVISOR Assigned Heart and Vascular Provider 08/05/23 10/01/23 Anthony Ballesteros MD [address] [place] [address] Assigned Heart and Vascular Provider 10/02/23 documented as of this encounter
--- OUTSIDE RECORDS SUMMARY | 2023-11-08 14:18 | XMS_ITS | Encounter Summary ---
Author Name Unknown Organization [place] Address [address] [address]. [place] [address] Care Team Providers Care Cultural Anthropology Professor Name Role Phone Alfred Rios MD Primary Care Provider + Alfred Rios MD Unavailable [phone] Murali Cadet MD Unavailable [phone] Anthony Ballesteros MD Unavailable [phone] Marilee Mathias DIRECTOR OF ANESTHESIA SERVICES Unavailable [phone] [address] Unavailable [phone] Anthony Ballesteros MD Unavailable [phone] Natalia Forman APRN BUSINESS INFORMATION ANALYST Unavailable Unavaila ble Anthony Ballesteros MD Unavailable [phone] Encounter Details Date Type Department Care Team (Late st Contact Info) Description 12/13/[address] [facility] [address] [place] [address] Kenzie Posada Social History Tobacco Use Types Packs/Day Years [...] CDT Gender Identity Male 08/26/2020 6:37 PM SOFTWARE ARCHITECT Sexual Orientation Straight 08/26/2020 6: 37 PM SOFTWARE ARCHITECT COVID-19 Exposure Response Date Recorded In the last month, have you been in contact with someone who was confirmed or suspected to have Coronavirus / COVID-19? No / Unsure 12/13/2020 8:48 AM CDT documented as of this encounter Plan of Treatment Upcoming Encounters Date Type Department Care Team (Late st Contact Info) Description 01/27/2024 8:30 AM CDT Lab [facility] [address] [place] [address] 01/28/2024 9:00 AM CDT Office Visit [facility] [address] [facility] [address] [place] [address] Natalia Forman APRN CNP Manoles, Michael Jon, MD [address] [place] [address] documented as of this encounter Visit Diagnoses Not on filedocumented in this encounter Additional Health Concerns Assessment Noted Time PHQ-9 Depression Total Score: 3 05/25/20 20 7:02 AM SOFTWARE ARCHITECT documented as of this encounter Care Teams Cultural Anthropology Professor Relationship Specialty Start Date End Date Alfred Rios MD PCP - General Family Practice 04/18/15 [place] [address] [place] [address] Assigned PCP 09/01/20 Murali Cadet MD [address] [place] [address] Assigned Heart and Vascular Provider 09/25/20 12/21/20 Anthony Ballesteros MD [address] [place] [address] Assigned Heart and Vascular Provider 12/22/20 05/28/23 Marilee Mathias DIRECTOR OF ANESTHESIA SERVICES [address] [place], [place] [address] Assigned Heart and Vascular Provider 05/29/23 06/11/23 Dixie Bridges EP [facility] [address] [place] [address] Cardiac Rehabilitation Therapist 06/29/23 06/29/24 Anthony Ballesteros MD [address] [place] [address] Assigned Heart and Vascular Provider 06/12/23 08/04/23 Natalia Forman APRN BUSINESS INFORMATION ANALYST Assigned Heart and Vascular Provider 08/05/23 10/01/23 Anthony Ballesteros MD [address] [place] [address] Assigned Heart and Vascular Provider 10/02/23 documented as of this encounter
--- OUTSIDE RECORDS SUMMARY | 2023-11-08 14:18 | XMS_ITS | Encounter Summary ---
Author Name Unknown Organization [place] Address [address] [place] [address]. [place] [address] Care Team Providers Care Tennis Ball Cover Cementer Name Role Phone Alfred Rios MD Primary Care Provider + Anthony Ballesteros MD Unavailable [phone] Alfred Rios MD Unavailable [phone] Alfred Rios MD Unavailable [phone] Murali Cadet MD Unavailable [phone] Anthony Ballesteros MD Unavailable [phone] Marilee Mathias NP Unavailable [phone]ges Unavailable [phone] Anthony Ballesteros MD Unavailable [phone] Natalia Forman APRN CLINICAL DOCUMENTATION NURSE Unavailable Unavaila ble Anthony Ballesteros MD Unavailable [phone] Reason for Visit * Reason Onset Date Comments Covid Concern 08/19/2020 Covid Vaccine Encounter Details Date Type Department Care Team (Late st Contact Info) Description 08/19/2020 [facility] [place] [address] [phone] [place] [address] [place] [address] Covid Concern (Covid Vaccine) Social History Tobacco Use Types Packs/Day Years [...] CDT Gender Identity Male 08/26/2020 6:37 PM BODY PIERCER Sexual Orientation Straight 08/26/2020 6: 37 PM BODY PIERCER documented as of this encounter Miscellaneous Notes * Telephone Encounter - Regina Burrows RN - 08/20/2020 8:56 AM CST [employer] message sent to patient. Regina Burrows RN PIERCER documented in this encounter Plan of Treatment Upcoming Encounters Date Type Department Care Team (Late st Contact Info) Description 01/27/2024 8:30 AM CDT Lab [facility] [address] [place] [address] 01/28/2024 9:00 AM CDT Office Visit [facility] [address] [facility] [address] [place] [address] Natalia Forman APRN CNP Manoles, Michael Jon, MD [address] [place] [address] documented as of this encounter Visit Diagnoses Not on filedocumented in this encounter Additional Health Concerns Assessment Noted Time PHQ-9 Depression Total Score: 3 05/25/ 20 7:02 AM BODY PIERCER documented as of this encounter Care Teams Tennis Ball Cover Cementer Relationship Specialty Start Date End Date Alfred Rios MD PCP - General Family Practice 04/18/15 Anthony Ballesteros MD [address] [place] [address] Assigned Heart and Vascular Provider 05/03/20 09/24/20 [place] [address] [address] [place] [address] Assigned PCP 09/01/20 [place] [address] [address], [place] [address] Assigned PCP 06/02/20 08/31/20 Murali Cadet MD [address] [place] [address] Assigned Heart and Vascular Provider 09/25/20 12/21/20 Anthony Ballesteros MD [address] [place] [address] Assigned Heart and Vascular Provider 12/22/20 05/28/23 Marilee Mathias VP COMPLIANCE [address] [place], [place] [address] Assigned Heart and Vascular Provider 05/29/23 06/11/23 Dixie Bridges EP [facility] [address] [place] [address] Cardiac Rehabilitation Therapist 06/29/23 06/29/24 Anthony Ballesteros MD [address] [place] [address] Assigned Heart and Vascular Provider 06/12/23 08/04/23 Natalia Forman APRN [facility] Assigned Heart and Vascular Provider 08/05/23 10/01/23 Anthony Ballesteros MD [address] [place] [address] Assigned Heart and Vascular Provider 10/02/23 documented as of this encounter
--- OUTSIDE RECORDS SUMMARY | 2023-11-08 14:18 | XMS_ITS | Encounter Summary ---
Author Name Unknown Organization [place] Address [address] [facility] [address] Care Team Providers Care Reactor Kettle Operator Name Role Phone Alfred Rios MD Primary Care Provider + Alfred Rios MD Unavailable [phone] Anthony Ballesteros MD Unavailable Marilee Mathias OFFICE ADMINISTRATIVE ASSISTANT Unavailable [phone] Dix[address] Bridges EP Unavailable [phone] Anthony Ballesteros MD Unavailable [phone] Natalia Forman GULLET SLITTER OIL WELL CABLE TOOL DRILLER Unavailable Unavaila ble Anthony Ballesteros MD Unavailable [phone] Encounter Details Date Type Department Care Team (Late st Contact Info) Description 08/21/2021 [facility] [address] [place] [address] [place] [address] [place] [address] Social History Tobacco Use Types [...] CDT Gender Identity Male 08/26/2020 6:37 PM EXPENSE CLERK Sexual Orientation Straight 08/26/2020 6: 37 PM EXPENSE CLERK documented as of this encounter Plan of Treatment Upcoming Encounters Date Type Department Care Team (Late st Contact Info) Description 01/27/2024 8:30 AM CDT Lab [facility] [address] [place] [address] 01/28/2024 9:00 AM CDT Office [facility] [address] [facility] [address] [place] [address] Natalia Forman APRN CNP Manoles, Michael Jon, MD [address] [place] [address] documented as of this encounter Visit Diagnoses Not on filedocumented in this encounter Additional Health Concerns Assessment Noted Time PHQ-9 Depression Total Score: 3 05/25/20 20 7:02 AM EXPENSE CLERK documented as of this encounter Care Teams Reactor Kettle Operator Relationship Specialty Start Date End Date Alfred Rios MD PCP - General Family Practice 04/18/15 [place] [address] [address] [address] Assigned PCP 09/01/20 Anthony Ballesteros MD [address] [place] [address] Assigned Heart and Vascular Provider 12/22/20 05/28/23 Marilee Mathias NP [address] [place] [address] Assigned Heart and Vascular Provider 05/29/23 06/11/23 Dixie Bridges EP [facility] [address] [place] [address] Cardiac Rehabilitation Therapist 06/29/23 06/29/24 Anthony Ballesteros MD [address] [place] [address] Assigned Heart and Vascular Provider 06/12/23 08/04/23 Natalia Forman APRN [facility] Assigned Heart and Vascular Provider 08/05/23 10/01/23 Anthony Ballesteros MD [address] [place] [address] Assigned Heart and Vascular Provider 10/02/23 documented as of this encounter
--- OUTSIDE RECORDS SUMMARY | 2023-11-08 14:18 | XMS_ITS | Encounter Summary ---
Author Name Unknown Organization [place] Address [address] [facility] [place] [address] Care Team Providers Care County Sheriff Name Role Phone Alfred Rios MD Primary Care Provider + Alfred Rios MD Unavailable [phone] Anthony Ballesteros MD Unavailable Marilee Mathias FLARE WORKER Unavailable Dixie Bridges EP Unavailable [phone] Anthony Ballesteros MD Unavailable [phone] Natalia Forman APRN NURSERY SCHOOL TEACHER Unavailable Unavaila ble Anthony Ballesteros MD Unavailable [phone] Reason for Visit * Reason Comments Medication Refill Encounter Details Date Type Department Care Team (Late st Contact Info) Description 01/31/2022 Refill [facility] [address] [place] [address] [place] [address] [place] [address] Medication Refill Social History Tobacco [...] CDT Gender Identity Male 08/26/2020 6:37 PM LABORER BEAM HOUSE Sexual Orientation Straight 08/26/2020 6: 37 PM LABORER BEAM HOUSE COVID-19 Exposure Response Date Recorded In the last 10 days, have yo u been in contact with someone who was confirmed or suspected to have Coronavirus/COVID-19? No / Unsure 01/29/2022 7:59 AM CDT documented as of this encounter Miscellaneous Notes * Telephone Encounter - Best Santamaria RN - [...] Info) Description 01/27/2024 8:30 AM CDT Lab [facility] Laboratory [address] [place] [address] 01/28/2024 9:00 AM CDT Office Visit [facility] [address] [facility] [address] [place] [address] Natalia Forman APRN CNP Manoles, Michael Jon, MD [address] [place], [place] [address] documented as of this encounter Visit Diagnoses Diagnosis Mild intermittent asthma without complication Unspecified asthma documented in this encounter Additional Health Concerns Assessment Noted Time PHQ-9 Depression Total Score: 3 05/25/20 20 7:02 AM LABORER BEAM HOUSE documented as of this encounter Care Teams County Sheriff Relationship Specialty Start Date End Date Alfred Rios MD PCP - General Family Practice 04/18/15 [place] [address] [address] [address] Assigned PCP 09/01/20 Anthony Ballesteros MD [address] [place] [address] Assigned Heart and Vascular Provider 12/22/20 05/28/23 Marilee Mathias NP [address] [place], [place] [address] Assigned Heart and Vascular Provider 05/29/23 06/11/23 Dixie Bridges EP [facility] [address] [place] [address] Cardiac Rehabilitation Therapist 06/29/23 06/29/24 Anthony Ballesteros MD [address] [place] [address] Assigned Heart and Vascular Provider 06/12/23 08/04/23 Natalia Forman APRN NURSERY SCHOOL TEACHER Assigned Heart and Vascular Provider 08/05/23 10/01/23 Anthony Ballesteros MD [address] [place] [address] Assigned Heart and Vascular Provider 10/02/23 documented as of this encounter
--- OUTSIDE RECORDS SUMMARY | 2023-11-08 14:18 | XMS_ITS | Encounter Summary ---
Author Name Unknown Organization [place] Address [facility] [place] [address] Care Team Providers Care Automation Qa Lead Name Role Phone Alfred Rios MD Primary Care Provider + Alfred Rios MD Unavailable [phone] Dixie Bridges Unavailable [phone] Anthony Ballesteros MD Unavailable [phone] Natalia Forman APRN ENDO TECH Unavailable Unavaila ble Antohny Ballesteros MD Unavailable [phone] Encounter Details Date Type Department Care Team (Late st Contact Info) Description 07/12/2023 [facility] Medical Advice [facility] Heart [facility] [address] [facility] [address] [place] [address] Anthony Ballesteros MD [address] [facility] [address] [place] [address] Coronary artery disease involving huslia coronary artery of huslia heart, unspecified whether angina present (Primary Dx) Social History Tobacco Use Types Packs/Day Years Used Date Smoking Tobacco: Former Cigarettes 1 35 0 10/21/1964 - 10/22/1999 Smokeless Tobacco: Never Alcohol Use Standard Drinks/Week Comments Yes 0 (1 standard drink = 0.6 oz pur e alcohol) One beer most days. PHQ-2 Answer Date Recorded PHQ-2 Score 1 06/09/2023 Adolescent Education Answer Date Record ed Getting School Help Needed Not on file 04/02 Sex and Gender Information Value Date Recorded Sex Assigned at Male 12/31/2020 1:31 PM CDT Gender Identity Male 08/26/2020 6:37 PM TIRE BUILDING SUPERVISOR Sexual Orientation Straight 08/26/2020 6: 37 PM TIRE BUILDING SUPERVISOR documented as of this encounter Miscellaneous Notes * Telephone Encounter - Gill Christianson RN - 07/13/2023 4:14 PM CST Images from the original note were not included. Anthony Ballesteros MD You47 minutes ago (3:26 PM) MM Please send a prescription for clopidogrel. 300 mg on the day he stops brillanta, then 75 mg daily beginning the day after he stops brillanta. I will countersign the order. DR Ballesteros Updated patient via DashBur[employer]t and medication list updated. Rx for Plavix sent to patient's pharmacy. BUILDING SUPERVISOR documented in this encounter Plan of Treatment Upcoming Encounters Date Type Department Care Team (Late st Contact Info) Description 01/27/2024 8:30 AM CDT Lab [facility] Laboratory [address] [place] [address] 01/28/2024 9:00 AM CDT Office Visit [facility] [address] [place] [address] [address] [place] [address] Natalia Forman APRN CNP Manoles, Michael Jon, MD [address] [facility] [address] [place] [address] documented as of this encounter Visit Diagnoses Diagnosis Coronary artery disease involving huslia coronary artery of huslia heart, unspecified whether angina present- Primary documented in this encounter Additional Health Concerns Assessment Noted Time PHQ-9 Depression Total Score: 3 05/25/20 20 7:02 AM TIRE BUILDING SUPERVISOR documented as of this encounter Care Teams Automation Qa Lead Relationship Specialty Start Date End Date Alfred Rios MD PCP - General Family Practice 04/18/15 [place] [address] [address] [address] Assigned PCP 09/01/20 Dixie Bridges EP [facility] [address] [address] Cardiac Rehabilitation Therapist 06/29/23 06/29/24 Anthony Ballesteros MD [address] [place] [address] Assigned Heart and Vascular Provider 06/12/23 08/04/23 Natalia Forman APRN ENDO TECH Assigned Heart and Vascular Provider 08/05/23 10/01/23 Anthony Ballesteros MD [address] [place] [address] Assigned Heart and Vascular Provider 10/02/23 documented as of this encounter
--- OUTSIDE RECORDS SUMMARY | 2023-11-08 14:18 | XMS_ITS | Encounter Summary ---
Author Name Unknown Organization [place] Address [address] [place] [address]. [place] [address] Care Team Providers Care Reinforced Concrete Inspector Name Role Phone Alfred iRos MD Primary Care Provider + Alfred Rios MD Unavailable [phone] Dixie Bridges Unavailable [phone] Anthony Ballesteros MD Unavailable [phone] Encounter Details Date Type Department Care Team (Latest Contact Info) Description 08/02/2023 Travel Social History Tobacco Use Types Packs/Day [...] CDT Gender Identity Male 08/26/2020 6:37 PM BUCKET HOOKER Sexual Orientation Straight 08/26/2020 6: 37 PM BUCKET HOOKER documented as of this encounter Plan of Treatment Upcoming Encounters Date Type Department Care Team (Late st Contact Info) Description 01/27/2024 8:30 AM CDT [facility] Laboratory [address] [place] [address] 01/28/2024 9:00 AM CDT Office Visit [facility] Heart [facility] [address] [facility] [address] [place] [phone] Natalia Forman APRN CNP Manoles, Michael Jon, MD [address] [place] [id number] documented as of this encounter Visit Diagnoses Not on filedocumented in this encounter Additional Health Concerns Assessment Noted Time PHQ-9 Depression Total Score: 3 05/25/20 20 7:02 AM BUCKET HOOKER documented as of this encounter Care Teams Reinforced Concrete Inspector Relationship Specialty Start Date End Date Alfred Rios MD PCP - General Family Practice 04/18/15 [place] [address] [place] [address] Assigned PCP 09/01/20 Dixie Bridges EP [facility] [address] [address] Cardiac Rehabilitation Therapist 06/29/23 06/29/24 Anthony Ballesteros MD [address] [place] [address] Assigned Heart and Vascular Provider 06/12/23 08/04/23 documented as of this encounter
--- OUTSIDE RECORDS SUMMARY | 2023-11-08 14:18 | XMS_ITS | Encounter Summary ---
Author Name Unknown Organization [place] Address [facility] [place] [address] Care Team Providers Care Track Walker Name Role Phone Alfred Rios MD Primary Care Provider + Alfred Rios MD Unavailable [phone] Dixie Bridges Unavailable [phone] Anthony Ballesteros MD Unavailable [phone] Reason for Visit * Rehab Therapy Cardiac Therapy (Routine: Next available opening) - Authorized Specialty Diagnoses / Procedures Referred By Ghazala t Referred To Contact CARDIAC REHAB Diagnoses CAD (coronary artery disease) [address] [address] Referral ID Status Reason Start Date Expiration Date V isits Requested Visits Authorized [id number] Authorized 06/24/2023 07/11/2024 365 365 Encounter Details Date Type Department Care Team (Latest Contact Info) Description 07/30/2023 8:43 AM COMMUNITY HEALTH EDUCATOR - 07/30/2023 11:59 PM COMMUNITY HEALTH EDUCATOR Hospital Encounter [facility] Cardiac and Pulmonary Rehabilitation [address] [place] [address] Anthony Ballesteros MD [address] [facility] [address] [place] [id number] 2, Rh Cardiac Rehab Discharge Disposition: Home [...] CDT Gender Identity Male 08/26/2020 6:37 PM COMMUNITY HEALTH EDUCATOR Sexual Orientation Straight 08/26/2020 6: 37 PM COMMUNITY HEALTH EDUCATOR documented as of this encounter Medications at [...] 75 MG tabletIndications:Coron stacy artery disease involving [place] coronary artery of [place] heart, unspecified whether angina present Take 300 mg (4 tablets) once on the day you discontinue Brilinta, then continue at 75 mg daily. 94 tablet 3 07/13/2023 gabapentin (NEURONTIN) 300 MG capsule Take 300 mg by mouth 2 times daily 03/16/2023 metoprolol tartrate (LOPRESSOR) 50 MG tabletIndications:Coron stacy artery disease involving [place] coronary artery of [place] heart, unspecified whether angina present Take 1 tablet (50 mg) by mouth 2 times daily 90 tablet 11 06/09/2023 naproxen (NAPROSYN) 500 MG tabletIndications:Bilat eral hip pain TAKE 1 TABLET (500 MG) BY MOUTH 2 TIMES DAILY NEEDED FOR MODERATE PAIN 60 tablet 1 12/04/2022 nitroGLYcerin (NITROSTAT) 0.4 MG sublingual tabletIndications:Coron stacy artery disease involving [place] coronary artery of [place] heart, unspecified whether angina present For chest pain place 1 tablet under the tongue every 5 minutes for 3 doses. If symptoms persist 5 minutes after 1st dose call 911. 90 tablet 11 06/09/2023 documented as of this encounter Plan of Treatment Upcoming Encounters Date Type Department Care Team (Late st Contact Info) Description 01/27/2024 8:30 AM CDT Lab [facility] Laboratory [address] [place] [address] 01/28/2024 9:00 AM CDT Office Visit [facility] [address] [place] [place] [phone] Natalia Forman APRN CNP Manoles, Michael Jon, MD [address] [place] [id number] documented as of this encounter Visit Diagnoses Not on filedocumented in this encounter Additional Health Concerns Assessment Noted Time PHQ-9 Depression Total Score: 3 05/25/20 20 7:02 AM COMMUNITY HEALTH EDUCATOR documented as of this encounter Care Teams Track Walker Relationship Specialty Start Date End Date Alfred Rios MD PCP - General Family Practice 04/18/15 [place] [address] [address] [address] Assigned PCP 09/01/20 Dixie Bridges EP [facility] [address] [address] Cardiac Rehabilitation Therapist 06/29/23 06/29/24 Anthony Ballesteros MD [address] [place] [id number] Assigned Heart and Vascular Provider 06/12/23 08/04/23 documented as of this encounter
--- OUTSIDE RECORDS SUMMARY | 2023-11-08 14:18 | XMS_ITS | Encounter Summary ---
Author Name Unknown Organization [place] Address [facility] [place] [address] Care Team Providers Care Wood Milling Machine Tender Name Role Phone Alfred Rios MD Primary Care Provider + Anthony Ballesteros MD Unavailable [phone] Alfred Rios MD Unavailable [phone] Alfred Rios MD Unavailable [phone] Murali Cadet MD Unavailable [phone] Anthony Ballesteros MD Unavailable Marilee Mathias NP Unavailable [phone] Dixie Bridges Unavailable [phone] Anthony Ballesteros MD Unavailable Natalia Forman APRN JET WIPER Unavailable Unavaila ble Anthony Ballesteros MD Unavailable [phone] Encounter Details Date Type Department Care Team (Late st Contact Info) Description 08/21/2020 [facility] [address] [place] [address] [address] [place] [address] Anthony Ballesteros MD [address] [facility] [address] [place] [id number] Social History Tobacco Use Types Packs/Day Years [...] CDT Gender Identity Male 08/26/2020 6:37 PM SCHOOL HEALTH AIDE Sexual Orientation Straight 08/26/2020 6: 37 PM SCHOOL HEALTH AIDE documented as of this encounter Plan of Treatment Upcoming Encounters Date Type Department Care Team (Late st Contact Info) Description 01/27/2024 8:[address] [facility] Laboratory [address] [place] [address] 01/28/2024 9:00 AM CDT Office Visit [facility] [address] [place] [address] [address] [place] [address] Natalia Forman APRN CNP Manoles, Michael Jon, MD [address] [place] [address] documented as of this encounter Visit Diagnoses Not on filedocumented in this encounter Additional Health Concerns Assessment Noted Time PHQ-9 Depression Total Score: 3 05/25/20 20 7:02 AM SCHOOL HEALTH AIDE documented as of this encounter Care Teams Wood Milling Machine Tender Relationship Specialty Start Date End Date Alfred Rios MD PCP - General Family Practice 04/18/15 Anthony Ballesteros MD [address] [place] [address] Assigned Heart and Vascular Provider 05/03/20 09/24/20 [place] [address] [address] [address] Assigned PCP 09/01/20 [place] [address] [address] [id number] Assigned PCP 06/02/20 08/31/20 Murali Cadet MD [address] [place] [address] Assigned Heart and Vascular Provider 09/25/20 12/21/20 Anthony Ballesteros MD [address] [place] [address] Assigned Heart and Vascular Provider 12/22/20 05/28/23 Marilee Mathias PRESS OFFICER [address] [place] [address] Assigned Heart and Vascular Provider 05/29/23 06/11/23 Dixie Bridges EP [facility] [address] [place] [address] Cardiac Rehabilitation Therapist 06/29/23 06/29/24 Anthony Ballesteros MD [address] [place] [address] Assigned Heart and Vascular Provider 06/12/23 08/04/23 Natalia Forman APRN JET WIPER Assigned Heart and Vascular Provider 08/05/23 10/01/23 Anthony Ballesteros MD [address] [place] [address] Assigned Heart and Vascular Provider 10/02/23 documented as of this encounter
--- OUTSIDE RECORDS SUMMARY | 2023-11-08 14:18 | XMS_ITS | Encounter Summary ---
Author Name Unknown Organization [place] Address [facility] [place] [address] Care Team Providers Care Farmworker Brooder Farm Name Role Phone Alfred Rios MD Primary Care Provider + Alfred Rios MD Unavailable [phone] Dixie Bridges Unavailable [phone] Anthony Ballesteros MD Unavailable [phone] Reason for Visit * Rehab Therapy Cardiac Therapy (Routine: Next available opening) - Authorized Specialty Diagnoses / Procedures Referred By Ghazala t Referred To Contact CARDIAC REHAB Diagnoses CAD (coronary artery disease) [address] [address] Referral ID Status Reason Start Date Expiration Date V isits Requested Visits Authorized [id number] Authorized 06/24/2023 07/11/2024 365 365 Encounter Details Date Type Department Care Team (Latest Contact Info) Description 08/04/2023 1:55 PM PRODUCT SAFETY ADMINISTRATOR - 08/04/2023 11:59 PM PRODUCT SAFETY ADMINISTRATOR Hospital Encounter [facility] Cardiac and Pulmonary Rehabilitation [address] [place] [address] Anthony Ballesteros MD [address] [facility] [address] [place] [id number] 2, Rh Cardiac Rehab Discharge Disposition: Home [...] CDT Gender Identity Male 08/26/2020 6:37 PM PRODUCT SAFETY ADMINISTRATOR Sexual Orientation Straight 08/26/2020 6: 37 PM PRODUCT SAFETY ADMINISTRATOR documented as of this encounter Medications at [...] 75 MG tabletIndications:Coron stacy artery disease involving [place] coronary artery of [place] heart, unspecified whether angina present Take 300 mg (4 tablets) once on the day you discontinue Brilinta, then continue at 75 mg daily. 94 tablet 3 07/13/2023 gabapentin (NEURONTIN) 300 MG capsule Take 300 mg by mouth 2 times daily 03/16/2023 metoprolol tartrate (LOPRESSOR) 50 MG tabletIndications:Coron stacy artery disease involving [place] coronary artery of [place] heart, unspecified whether angina present Take 1 tablet (50 mg) by mouth 2 times daily 90 tablet 11 06/09/2023 naproxen (NAPROSYN) 500 MG tabletIndications:Bilat eral hip pain TAKE 1 TABLET (500 MG) BY MOUTH 2 TIMES DAILY NEEDED FOR MODERATE PAIN 60 tablet 1 12/04/2022 nitroGLYcerin (NITROSTAT) 0.4 MG sublingual tabletIndications:Coron stacy artery disease involving [place] coronary artery of [place] heart, unspecified whether angina present For chest pain place 1 tablet under the tongue every 5 minutes for 3 doses. If symptoms persist 5 minutes after 1st dose call 911. 90 tablet 11 06/09/2023 documented as of this encounter Plan of Treatment Upcoming Encounters Date Type Department Care Team (Late st Contact Info) Description 01/27/2024 8:30 AM CDT Lab [facility] Laboratory [address] [place] [address] 01/28/2024 9:00 AM CDT Office Visit [facility] [address] [place] [address] [place] [address] Natalia Forman APRN CNP Manoles, Michael Jon, MD [address] [place] [id number] documented as of this encounter Visit Diagnoses Not on filedocumented in this encounter Additional Health Concerns Assessment Noted Time PHQ-9 Depression Total Score: 3 05/25/20 20 7:02 AM PRODUCT SAFETY ADMINISTRATOR documented as of this encounter Care Teams Farmworker Brooder Farm Relationship Specialty Start Date End Date Alfred Rios MD PCP - General Family Practice 04/18/15 [place] [address] [address] [address] Assigned PCP 09/01/20 Dixie Bridgse EP [facility] [address] [address] Cardiac Rehabilitation Therapist 06/29/23 06/29/24 Anthony Ballesteros MD [address] [place] [id number] Assigned Heart and Vascular Provider 06/12/23 08/04/23 documented as of this encounter
--- OUTSIDE RECORDS SUMMARY | 2023-11-08 14:18 | XMS_ITS | Encounter Summary ---
Author Name Unknown Organization [place] Address [facility] [place] [address] Care Team Providers Care Textile Machinery Sales Representative Name Role Phone Alfred Rios MD Primary Care Provider + Alfred Rios MD Unavailable [phone] Anthony Ballesteros MD Unavailable Marilee Mathias DATABASE ADMINISTRATION ASSOCIATE Unavailable [phone] Dixie Bridges EP Unavailable [phone] Anthony Ballesteros MD Unavailable Natalia Forman APRN EQUIPMENT OPERATOR WAREHOUSE Unavailable Unavaila ble Anthony Ballesteros MD Unavailable Reason for Visit * Reason Comments Medication Refill Encounter Details Date Type Department Care Team (Late st Contact Info) Description 02/24/2021 Refill [facility] [address] [place] [address] [place] [address] [place] [address] Medication Refill Social History Tobacco [...] CDT Gender Identity Male 08/26/2020 6:37 PM WARPER CREELER Sexual Orientation Straight 08/26/2020 6: 37 PM WARPER CREELER documented as of this encounter Miscellaneous Notes * Telephone Encounter - Teresita Easley RN - 02/25/2021 4:53 PM CDT Prescription approved per [facility] protocol. Teresita Easley RN on 02/25/2021 at 4:53 PM documented in this encounter Plan of Treatment Upcoming Encounters Date Type Department Care Team (Late st Contact Info) Description 01/27/2024 8:30 AM CDT Lab [facility] Laboratory [address] [place] [address] 01/28/2024 9:00 AM CDT Office Visit [facility] [address] [facility] [address] [place] [address] Natalia Forman APRN CNP Manoles, Michael Jon, MD [address] [place] [address] documented as of this encounter Visit Diagnoses Diagnosis Coronary artery disease involving coronary bypass graft of [place] heart without angina pectoris documented in this encounter Additional Health Concerns Assessment Noted Time PHQ-9 Depression Total Score: 3 05/25/20 20 7:02 AM WARPER CREELER documented as of this encounter Care Teams Textile Machinery Sales Representative Relationship Specialty Start Date End Date Alfred Rios MD PCP - General Family Practice 04/18/15 [place] [address] [address] [address] Assigned PCP 09/01/20 Anthony Ballesteros MD [address] [place] [id number] Assigned Heart and Vascular Provider 12/22/20 05/28/23 Marilee Mathias DATABASE ADMINISTRATION ASSOCIATE [address] [place], [place] [address] Assigned Heart and Vascular Provider 05/29/23 06/11/23 Dixie Bridges EP [facility] [address] [address] Cardiac Rehabilitation Therapist 06/29/23 06/29/24 Anthony Ballesteros MD [address] [place] [address] Assigned Heart and Vascular Provider 06/12/23 08/04/23 Natalia Forman APRN EQUIPMENT OPERATOR WAREHOUSE Assigned Heart and Vascular Provider 08/05/23 10/01/23 Anthony Ballesteros MD [address] [place] [address] Assigned Heart and Vascular Provider 10/02/23 documented as of this encounter
--- OUTSIDE RECORDS SUMMARY | 2023-11-08 14:18 | XMS_ITS | Encounter Summary ---
Author Name Unknown Organization [place] Address [address] [facility] [place] [address] Care Team Providers Care Vtc Technician Name Role Phone Alfred Rios MD Primary Care Provider + Alfred Rios MD Unavailable [phone] Anthnoy Ballesteros MD Unavailable Marilee Mathias LOAD MIXER Unavailable [phone] Dixie Bridges EP Unavailable [phone] Anthony Ballesteros MD Unavailable Natalia Forman STORE CLERK CASHIER TOUCH UP PAINTER HAND Unavailable Unavaila ble Anthony Ballesteros MD Unavailable [phone] Encounter Details Date Type Department Care Team (Late st Contact Info) Description 04/29/2021 [facility] Medical Advice [facility] [address] [place] [address] [place] [address] [place] [address] Social History Tobacco Use Types [...] CDT Gender Identity Male 08/26/2020 6:37 PM SLICER MACHINE OPERATOR Sexual Orientation Straight 08/26/2020 6: 37 PM SLICER MACHINE OPERATOR documented as of this encounter Plan of Treatment Upcoming Encounters Date Type Department Care Team (Late st Contact Info) Description 01/27/2024 8:30 AM CDT Lab [facility] Laboratory [address] [place] [address] 01/28/2024 9:00 AM CDT Office Visit [facility] [address] [facility] [address] [place] [address] Natalia Forman APRN CNP Manoles, Michael Jon, MD [address] [place] [id number] documented as of this encounter Visit Diagnoses Not on filedocumented in this encounter Additional Health Concerns Assessment Noted Time PHQ-9 Depression Total Score: 3 05/25/20 20 7:02 AM SLICER MACHINE OPERATOR documented as of this encounter Care Teams Vtc Technician Relationship Specialty Start Date End Date Alfred Rios MD PCP - General Family Practice 04/18/15 [place] [address] [address] [address] Assigned PCP 09/01/20 Anthony Ballesteros MD [address] [place] [address] Assigned Heart and Vascular Provider 12/22/20 05/28/23 Marilee Mathias NP [address] [place] [address] Assigned Heart and Vascular Provider 05/29/23 06/11/23 Dixie Bridges EP [facility] [address] [address] Cardiac Rehabilitation Therapist 06/29/23 06/29/24 Anthony Ballesteros MD [address] [place] [address] Assigned Heart and Vascular Provider 06/12/23 08/04/23 Natalia Forman APRN [facility] Assigned Heart and Vascular Provider 08/05/23 10/01/23 Anthony Ballesteros MD [address] [place] [address] Assigned Heart and Vascular Provider 10/02/23 documented as of this encounter
--- OUTSIDE RECORDS SUMMARY | 2023-11-08 14:18 | XMS_ITS | Encounter Summary ---
Author Name Unknown Organization [place] Address [address] [place] [address]. [place] [address] Care Team Providers Care Field Applications Specialist Name Role Phone Alfred Rios MD Primary Care Provider + Alfred Rios MD Unavailable [phone] Murali Cadet MD Unavailable [phone] Anthony Ballesteros MD Unavailable [phone] Marilee Mathias CLINICAL LABORATORY TECHNOLOGIST Unavailable Dixie Bridges Unavailable [phone] Anthony Ballesteros MD Unavailable [phone] Natalia Forman APRN SUPERVISOR [place]OR[place]ELAIN DEPARTMENT Unavailable Unavaila ble Anthony Ballesteros MD Unavailable [phone] Reason for Visit * Reason Onset Date Comments Refill Request 11/05/2020 Encounter Details Date Type Department Care Team (Late st Contact Info) Description 11/05/2020 MyC Refill [address] [address] [place] [address] [place] [address] Refill Request Social History Tobacco Use Types Packs/Day Years [...] CDT Gender Identity Male 08/26/2020 6:37 PM ROTARY SWAGING MACHINE OPERATOR Sexual Orientation Straight 08/26/2020 6: 37 PM ROTARY SWAGING MACHINE OPERATOR documented as of this encounter Miscellaneous Notes * Telephone Encounter - Teresita Easley RN - 11/07/2020 8:15 AM CDT Prescription approved per [facility] protocol. Teresita Easley RN on 11/07/2020 at 8:15 AM documented in this encounter Plan of Treatment Upcoming Encounters Date Type Department Care Team (Late st Contact Info) Description 01/27/2024 8:30 AM CDT Lab [facility] Laboratory [address] [place] [address] 01/28/2024 9:00 AM CDT Office Visit [facility] [address] [facility] [address] [place] [address] Natalia Forman APRN CNP Manoles, Michael Jon, MD [address] [place] [id number] documented as of this encounter Visit Diagnoses Diagnosis Essential hypertension, benign documented in this encounter Additional Health Concerns Assessment Noted Time PHQ-9 Depression Total Score: 3 05/25/20 20 7:02 AM ROTARY SWAGING MACHINE OPERATOR documented as of this encounter Care Teams Field Applications Specialist Relationship Specialty Start Date End Date Alfred Rios MD PCP - General Family Practice 04/18/15 [place] [address] [address] [address] Assigned PCP 09/01/20 Murali Cadet MD [address] [place] [address] Assigned Heart and Vascular Provider 09/25/20 12/21/20 Anthony Ballesteros MD [address] [place] [address] Assigned Heart and Vascular Provider 12/22/20 05/28/23 Marilee Mathias NP [address] [place] [address] Assigned Heart and Vascular Provider 05/29/23 06/11/23 Dixie Bridges EP [facility] [address] [place] [address] Cardiac Rehabilitation Therapist 06/29/23 06/29/24 Anthony Ballesteros MD [address] [place] [address] Assigned Heart and Vascular Provider 06/12/23 08/04/23 Natalia Forman APRN SUPERVISOR PORCELAIN DEPARTMENT Assigned Heart and Vascular Provider 08/05/23 10/01/23 Anthony Ballesteros MD [address] [place] [address] Assigned Heart and Vascular Provider 10/02/23 documented as of this encounter
--- OUTSIDE RECORDS SUMMARY | 2023-11-08 14:19 | XMS_ITS | Encounter Summary ---
Author Name Unknown Organization [place] Address [address] [place] [address] Care Team Providers Care Ironworker Wire Fence Erector Name Role Phone Alfred Rios MD Primary Care Provider + Alfred Rios MD Unavailable + Alfred Rios MD Unavailable + Anthony Ballesteros MD Unavailable +[phone] Alfred Rios MD Unavailable + Alfred Rios MD Unavailable +[phone] Murali Cadet MD Unavailable +[phone] Anthony Ballesteros MD Unavailable +[phone] Marilee Mathias BATTER MIXER HELPER Unavailable [phone] Dixie Bridges Unavailable +[phone] Anthony Ballesteros MD Unavailable +[phone] Natalia Forman APRN SECURITY SYSTEMS INTEGRATOR Unavailable Unavaila ble Anthony Ballesteros MD Unavailable +[phone] Encounter Details Date Type Department Care Team (Late st Contact Info) Description 12/24/2015 MyC Medical Advice [address], [address] [place] [address] Gill Aragon, [facility] Social History Tobacco Use Types Packs/Day Years Used Date Smoking Tobacco: Former Cigarettes 1 35 0 10/21/1964 - 10/22/1999 Smokeless Tobacco: Never Alcohol Use Standard Drinks/Week Comments Yes 0 (1 standard drink = 0.6 oz pur e alcohol) 1-2 beers daily Sex and Gender Information Value Date Recorded Sex Assigned at Male 12/31/2020 1:31 PM CDT Gender Identity Male 08/26/2020 6:37 PM CLOTH MERCERIZER BACK TENDER Sexual Orientation Straight 08/26/2020 6: 37 PM CLOTH MERCERIZER BACK TENDER documented as of this encounter Plan of Treatment Upcoming Encounters Date Type Department Care Team (Late st Contact Info) Description 01/27/2024 8:[address] [facility] [address] [place] [address] 01/28/2024 9:00 AM CDT Office Visit [facility] [address] [place] [address] Natalia Forman APRN CNP Manoles, Michael Jon, MD [address] [place] [address] documented as of this encounter Visit Diagnoses Not on filedocumented in this encounter Care Teams Ironworker Wire Fence Erector Relationship Specialty Start Date End Date Alfred Rios MD PCP - General Family Practice 04/18/15 [place] [address] [address] [address] PCP - Assigned PCP 03/22/15 09/13/18 [place] [address] [address] [address] Assigned PCP 03/22/15 06/01/20 Anthony Ballesteros MD [address] [place] [address] Assigned Heart and Vascular Provider 05/03/20 09/24/20 [place] [address] [place] [address] Assigned PCP 09/01/20 [place] [address] [place] [address] Assigned PCP 06/02/20 08/31/20 Murali Cadet MD [address] [place] [address] Assigned Heart and Vascular Provider 09/25/20 12/21/20 Anthony Ballesteros MD [address] [place] [address] Assigned Heart and Vascular Provider 12/22/20 05/28/23 Marilee Mathias BATTER MIXER HELPER [address] [place] [address] Assigned Heart and Vascular Provider 05/29/23 06/11/23 Dixie Bridges EP [facility] [address] [place] [address] Cardiac Rehabilitation Therapist 06/29/23 06/29/24 Anthony Ballesteros MD [address] [place] [address] Assigned Heart and Vascular Provider 06/12/23 08/04/23 Natalia Forman APRN [facility] Assigned Heart and Vascular Provider 08/05/23 10/01/23 Anthony Ballesteros MD [address] [place] [address] Assigned Heart and Vascular Provider 10/02/23 documented as of this encounter
--- OUTSIDE RECORDS SUMMARY | 2023-11-08 14:19 | XMS_ITS | Encounter Summary ---
Author Name Unknown Organization [place] Address [address] [place] [address] Care Team Providers Care Mosaicist Name Role Phone Alfred Rios MD Primary Care Provider + Alfred Rios MD Unavailable [phone] Anthony Ballesteros MD Unavailable [phone] Alfred Rios MD Unavailable [phone] Alfred Rios MD Unavailable [phone] Murali Cadet MD Unavailable [phone] Anthony Ballesteros MD Unavailable +[phone] Marilee Mathias NP Unavailable Dixie Bridges EP Unavailable +[phone] Anthony Ballesteros MD Unavailable [phone] Natalia Forman APRN HAND II THERMAL CUTTER Unavailable Unavaila ble Anthony Ballesteros MD Unavailable [phone] Reason for Visit * Reason Onset Date Comments Medication Refill 05/22/2019 metoprolol tar trate (LOPRESSOR) 25 MG tablet Encounter Details Date Type Department Care Team (Late st Contact Info) Description 05/20/[address], [address] [place] [address] [place] [address] [place] [address] Medication Refill (metoprolol tartrate (LOPRESSOR) 25 MG tablet) Social History Tobacco Use Types Packs/Day [...] CDT Gender Identity Male 08/26/2020 6:37 PM INDUSTRIAL ROOF PLUMBER Sexual Orientation Straight 08/26/2020 6: 37 PM INDUSTRIAL ROOF PLUMBER documented as of this encounter Miscellaneous Notes * Telephone Encounter - Regina Burrows RN - 05/22/2019 3:58 PM CST Prescription approved per [facility] Refill Protocol. Regina Burrows RN STRIAL ROOF PLUMBER * Telephone Encounter - Romina Baltazar - 05/22/2019 8:31 AM CST Images from the original note were not included. Requested Prescriptions Pending Prescriptions Disp Refills ??? metoprolol tartrate (LOPRESSOR) 25 MG tablet [Pharmacy Med Name: METOPROLOL TARTRATE 25 MG TAB]180 tablet 1 Sig: TAKE 1 TABLET (25 [...] - Medication is active on med list STRIAL ROOF PLUMBER documented in this encounter Plan of Treatment Upcoming Encounters Date Type Department Care Team (Late st Contact Info) Description 01/27/2024 8:30 AM CDT Lab [facility] [address] [place] [address] 01/28/2024 9:00 AM CDT Office Visit [facility] [address] [facility] [address] [place] [address] Natalia Forman APRN CNP Manoles, Michael Jon, MD [address] [place] [address] documented as of this encounter Visit Diagnoses Diagnosis Essential hypertension, benign documented in this encounter Additional Health Concerns Assessment Noted Time PHQ-9 Depression Total Score: 5 04/15/20 19 7:03 AM CDT documented as of this encounter Care Teams Mosaicist Relationship Specialty Start Date End Date Alfred Rios MD PCP - General Family Practice 04/18/15 [place] [address] [address] [address] Assigned PCP 03/22/15 06/01/20 Anthony Ballesteros MD [address] [place] [address] Assigned Heart and Vascular Provider 05/03/20 09/24/20 [place] [address] [place] [address] Assigned PCP 09/01/20 [place] [address] [place] [address] Assigned PCP 06/02/20 08/31/20 Murali Cadet MD [address] [place] [address] Assigned Heart and Vascular Provider 09/25/20 12/21/20 Anthony Ballesteros MD [address] [place] [address] Assigned Heart and Vascular Provider 12/22/20 05/28/23 Marilee Mathias CONCRETE STONE FABRICATING SUPERVISOR [address] [place], [place] [address] Assigned Heart and Vascular Provider 05/29/23 06/11/23 Dixie Bridges EP [facility] [address] [place] [address] Cardiac Rehabilitation Therapist 06/29/23 06/29/24 Anthony Ballesteros MD [address] [place] [address] Assigned Heart and Vascular Provider 06/12/23 08/04/23 Natalia Forman APRN HAND II THERMAL CUTTER Assigned Heart and Vascular Provider 08/05/23 10/01/23 Anthony Ballesteros MD [address] [place] [address] Assigned Heart and Vascular Provider 10/02/23 documented as of this encounter
--- OUTSIDE RECORDS SUMMARY | 2023-11-08 14:19 | XMS_ITS | Encounter Summary ---
Author Name Unknown Organization [facility] Address [address] [place] [address] Care Team Providers Care Immunochemist Name Role Phone Alfred Rios MD Primary Care Provider + Alfred Rios MD Unavailable + Alfred Rios MD Unavailable + Anthony Ballesteros MD Unavailable [phone] Alfred Rios MD Unavailable + [phone] Alfred Rios MD Unavailable +[phone] Murali Cadet MD Unavailable +[phone] Anthony Ballesteros MD Unavailable +[phone] Marilee Mathias FEED PROJECT ENGINEER Unavailable [phone] Dixie Bridges Unavailable [phone] Anthony Ballesteros MD Unavailable +[phone] Natalia Forman APRN PROCESS AREA SUPERVISOR Unavailable Unavaila ble Anthony Ballesteros MD Unavailable [phone] Reason for Visit * Reason Onset Date Comments Refill Request 04/22/2015 Pravastatin Encounter Details Date Type Department Care Team (Late st Contact Info) Description 04/22/2015 [facility] [address], [address] [place] [address] [place] [address] [address] [address] Refill Request (Pravastatin) Social History Tobacco Use Types Packs/Day Years Used Date Smoking Tobacco: Former Cigarettes Q uit: 10/22/1999 Alcohol Use Standard Drinks/Week Comments Yes 0 (1 standard drink = 0.6 oz pur e alcohol) 1-2 beers daily Sex and Gender Information Value Date Recorded Sex Assigned at Male 12/31/2020 1:31 PM CDT Gender Identity Male 08/26/2020 6:37 PM FIRER KILN Sexual Orientation Straight 08/26/2020 6: 37 PM FIRER KILN documented as of this encounter Miscellaneous Notes * Telephone Encounter - Regina Burrows RN - 04/22/2015 3:27 PM CDT Pravastatin 20mg Last Written Prescription Date: 03/18/2015 Last Fill Quantity: 30, # refills: 0 Last Office Visit with [facility] primary care provider: 04/16/2015 CHOL 200 04/16/2015 HDL 61 04/16/2015 LDL 124 04/16/2015 TRIG 74 04/16/2015 CHOLHDLRATIO 3.3 04/16/2015 Prescription approved per [facility] Refill Protocol. Regina Burrows RN documented in this encounter Plan of Treatment Upcoming Encounters Date Type Department Care Team (Late st Contact Info) Description 01/27/2024 8:30 AM CDT Lab [facility] [address] [place] [address] 01/28/2024 9:00 AM CDT Office Visit [facility] [address] [facility] [address] [place] [address] Natalia Forman APRN CNP Manoles, Michael Jon, MD [address] [place] [address] documented as of this encounter Visit Diagnoses Diagnosis Hyperlipidemia LDL goal < 130- Primary Other and unspecified hyperlipidemia documented in this encounter Care Teams Immunochemist Relationship Specialty Start Date End Date Alfred Rios MD PCP - General Family Practice 04/18/15 [place] [address] [address] [address] PCP - Assigned PCP 03/22/15 09/13/18 [place] [address] [address] [address] Assigned PCP 03/22/15 06/01/20 Anthony Ballesteros MD [address] [place] [address] Assigned Heart and Vascular Provider 05/03/20 09/24/20 [place] [address] [address] [address] Assigned PCP 09/01/20 [place] [address] [place] [address] Assigned PCP 06/02/20 08/31/20 Murali Cadet MD [address] [place] [address] Assigned Heart and Vascular Provider 09/25/20 12/21/20 Anthony Ballesteros MD [address] [place] [address] Assigned Heart and Vascular Provider 12/22/20 05/28/23 Marilee Mathias NP [address] [place], [place] [address] Assigned Heart and Vascular Provider 05/29/23 06/11/23 Dixie Bridges EP [facility] [address] [place] [address] Cardiac Rehabilitation Therapist 06/29/23 06/29/24 Anthony Ballesteros MD [address] [place] [address] Assigned Heart and Vascular Provider 06/12/23 08/04/23 Natalia Forman APRN PROCESS AREA SUPERVISOR Assigned Heart and Vascular Provider 08/05/23 10/01/23 Anthony Ballesteros MD [address] [place] [address] Assigned Heart and Vascular Provider 10/02/23 documented as of this encounter
--- OUTSIDE RECORDS SUMMARY | 2023-11-08 14:19 | XMS_ITS | Encounter Summary ---
Author Name Unknown Organization [place] Address [address] [place] [address] Care Team Providers Care Commercial Escrow Officer Name Role Phone Alfred Rios MD Primary Care Provider + Alfred Rios MD Unavailable [phone] Anthony Ballesteros MD Unavailable [phone] Alfred Rios MD Unavailable [phone] Alfred Rios MD Unavailable [phone] Murali Cadet MD Unavailable [phone] Anthony Ballesteros MD Unavailable +[phone] Marilee Mathias CITRUS FRUIT PACKER Unavailable [phone] Dixie Bridges EP Unavailable [phone] Anthony Ballesteros MD Unavailable +[phone] Natalia Forman TRANSFER TABLE OPERATOR HELPER BOILER SERVICE TECHNICIAN Unavailable Unavaila ble Anthony Ballesteros MD Unavailable [phone] Reason for Visit * Reason Onset Date Comments Refill Request 11/22/2019 Encounter Details Date Type Department Care Team (Late st Contact Info) Description 11/22/2019 MyC Refill [address], [address] [place] [address] [place] [address] [facility] [address] Refill Request Social History Tobacco Use Types [...] CDT Gender Identity Male 08/26/2020 6:37 PM ROLLER STAKER Sexual Orientation Straight 08/26/2020 6: 37 PM ROLLER STAKER documented as of this encounter Miscellaneous Notes * Telephone Encounter - Regina Burrows RN - 11/22/2019 8:52 AM CDT Images from the original note were not included. Routing refill request to provider for review/approval because: Labs not current: LDL Cholesterol Calculated Date Value Ref Range Status 09/12/2018 68 <100 mg/dL Final Comment: Desirable: <100 mg/dl Regina Burrows RN * Telephone Encounter - Regina Burrows RN - 11/22/2019 8:52 AM CDT Prescription approved per [facility] Refill Protocol - Metoprolol Regina Burrows RN documented in this encounter Plan of Treatment Upcoming Encounters Date Type Department Care Team (Late st Contact Info) Description 01/27/2024 8:30 AM CDT Lab [facility] [address] [place] [address] 01/28/2024 9:00 AM CDT Office Visit [facility] [address] [facility] [address] [place] [address] Natalia Forman APRN CNP Manoles, Michael Jon, MD [address] [place] [address] documented as of this encounter Visit Diagnoses Diagnosis Hyperlipidemia with target LDL less than 100 Other and unspecified hyperlipidemia Essential hypertension, benign documented in this encounter Additional Health Concerns Assessment Noted Time PHQ-9 Depression Total Score: 5 04/15/20 19 7:03 AM CDT documented as of this encounter Care Teams Commercial Escrow Officer Relationship Specialty Start Date End Date Alfred Rios MD PCP - General Family Practice 04/18/15 [place] [address] [address] [address] [address] Assigned PCP 03/22/15 06/01/20 Anthony Ballesteros MD [address] [place] [address] Assigned Heart and Vascular Provider 05/03/20 09/24/20 [place] [address] [address] [address] [address] Assigned PCP 09/01/20 [place] [address] [address] [address] [address] Assigned PCP 06/02/20 08/31/20 Murali Cadet MD [address] [place] [address] Assigned Heart and Vascular Provider 09/25/20 12/21/20 Anthony Ballesteros MD [address] [place] [address] Assigned Heart and Vascular Provider 12/22/20 05/28/23 Marilee Mathias NP [address] [place], [place] [address] Assigned Heart and Vascular Provider 05/29/23 06/11/23 Dxiie Bridges EP [facility] [address] [place] [address] Cardiac Rehabilitation Therapist 06/29/23 06/29/24 Anthony Ballesteros MD [address] [place] [address] Assigned Heart and Vascular Provider 06/12/23 08/04/23 Natalia Forman, TRANSFER TABLE OPERATOR HELPER BOILER SERVICE TECHNICIAN Assigned Heart and Vascular Provider 08/05/23 10/01/23 Anthony Ballesteros MD [address] [place] [address] Assigned Heart and Vascular Provider 10/02/23 documented as of this encounter
--- OUTSIDE RECORDS SUMMARY | 2023-11-08 14:19 | XMS_ITS | Encounter Summary ---
Author Name Unknown Organization [place] Address [address] [place] [address] Care Team Providers Care Auto Care Center Manager Name Role Phone Alfred Rios MD Primary Care Provider + Alfred Rios MD Unavailable [phone] Anthony Ballesteros MD Unavailable [phone] Alfred Rios MD Unavailable + [phone] Alfred Rios MD Unavailable + [phone] Murali Cadet MD Unavailable [phone] Anthony Ballesteros MD Unavailable +[phone] Marilee Mathias UPHOLSTERY CUTTER Unavailable [phone] Dixie Bridges EP Unavailable [phone] Anthony Ballesteros MD Unavailable [phone] Natalia Forman INTERIM CONTROLLER SAND SCREENER OPERATOR Unavailable Unavaila ble Anthony Ballesteros MD Unavailable [phone] Encounter Details Date Type Department Care Team (Late st Contact Info) Description 10/11/2019 MyC Medical Advice [address], [address] [place] [address] Litzy Porras, MECHANICAL EXPERT Social History Tobacco Use Types Packs/Day Years [...] CDT Gender Identity Male 08/26/2020 6:37 PM MIGRATION AGENT Sexual Orientation Straight 08/26/2020 6: 37 PM MIGRATION AGENT documented as of this encounter Plan of Treatment Upcoming Encounters Date Type Department Care Team (Late st Contact Info) Description 01/27/2024 8:30 AM CDT Lab [facility] [address] [place] [address] 01/28/2024 9:00 AM CDT Office Visit [facility] [address] [facility] [address] [place] [address] Natalia Forman APRN CNP Manoles, Michael Jon, MD [address] [place] [address] documented as of this encounter Visit Diagnoses Not on filedocumented in this encounter Additional Health Concerns Assessment Noted Time PHQ-9 Depression Total Score: 5 04/15/20 19 7:03 AM CDT documented as of this encounter Care Teams Auto Care Center Manager Relationship Specialty Start Date End Date Alfred Rios MD PCP - General Family Practice 04/18/15 [place] [address] [address] [address] Assigned PCP 03/22/15 06/01/20 Anthony Ballesteros MD [address] [place] [address] Assigned Heart and Vascular Provider 05/03/20 09/24/20 [place] [address] [place] [address] Assigned PCP 09/01/20 [place] [address] [place] [address] Assigned PCP 06/02/20 08/31/20 Murali Cadet MD [address] [place] [address] Assigned Heart and Vascular Provider 09/25/20 12/21/20 Anthony Ballesteros MD [address] [place] [address] Assigned Heart and Vascular Provider 12/22/20 05/28/23 Marilee Mathias NP [address] [place], [place] [address] Assigned Heart and Vascular Provider 05/29/23 06/11/[address] [facility] [address] [place] [address] Cardiac Rehabilitation Therapist 06/29/23 06/29/24 Anthony Ballesteros MD [address] [place] [address] Assigned Heart and Vascular Provider 06/12/23 08/04/23 Natalia Forman APRN SAND SCREENER OPERATOR Assigned Heart and Vascular Provider 08/05/23 10/01/23 Anthony Ballesteros MD [address] [place] [address] Assigned Heart and Vascular Provider 10/02/23 documented as of this encounter
--- OUTSIDE RECORDS SUMMARY | 2023-11-08 14:19 | XMS_ITS | Encounter Summary ---
Author Name Unknown Organization [place] Address [address] [place] [address] Care Team Providers Care Chronometer Adjuster Name Role Phone Alfred Rios MD Primary Care Provider + Alfred Rios MD Unavailable [phone] Anthony Ballesteros MD Unavailable [phone] Alfred Rios MD Unavailable [phone] Alfred Rios MD Unavailable [phone] Murali Cadet MD Unavailable [phone] Anthony Ballesteros MD Unavailable +[phone] Marilee Mathias RECREATION AIDE Unavailable [phone] Dixie Bridges EP Unavailable [phone] Anthony Ballesteros MD Unavailable +[phone] Natalia Forman HEAD GREENSKEEPER LUCERNE FARMER Unavailable Unavaila ble Anthony Ballesteros MD Unavailable +[phone] Reason for Visit * Reason Onset Date Comments Refill Request 05/05/2020 Encounter Details Date Type Department Care Team (Late st Contact Info) Description 05/05/2020 MyC Refill [address], [address] [place] [address] [place] [address] [place] [address] Refill Request Social History Tobacco Use Types [...] CDT Gender Identity Male 08/26/2020 6:37 PM OPERATIONS LEADER Sexual Orientation Straight 08/26/2020 6: 37 PM OPERATIONS LEADER COVID-19 Exposure Response Date Recorded In the last month, have you been in contact with someone who was confirmed or suspected to have Coronavirus / COVID-19? No / Unsure 04/22/2020 1:20 PM CDT documented as of this encounter Miscellaneous Notes * Telephone Encounter - Brionna Yates RN - 05/07/2020 11:17 AM CDT Routing refill request to provider for review/approval because: A break in medication-last filled September 2018 Has apt next week See Mychart request Next 5 appointments (look out 90 days) May 24, 2020 10:00 AM (Arrive by 9:35 AM) Adult Preventative Visit with Alfred Rios MD [facility] [address] [place] [address] Brionna Yates RN, BSN Message handled by CLINIC NURSE. documented in this encounter Plan of Treatment Upcoming Encounters Date Type Department Care Team (Late st Contact Info) Description 01/27/2024 8:30 AM CDT Lab [facility] [address] [place] [address] 01/28/2024 9:00 AM CDT Office Visit [facility] [address] [place] [address] [address] [place] [address] Natalia Forman APRN LUCERNE FARMER Anthony Ballesteros MD [address] [place] [address] documented as of this encounter Visit Diagnoses Diagnosis Mild intermittent asthma without complication Unspecified asthma documented in this encounter Additional Health Concerns Assessment Noted Time PHQ-9 Depression Total Score: 5 04/15/20 19 7:03 AM CDT documented as of this encounter Care Teams Chronometer Adjuster Relationship Specialty Start Date End Date Alfred Rios MD PCP - General Family Practice 04/18/15 [place] [address] [address] [address] [address] Assigned PCP 03/22/15 06/01/20 Anthony Ballesteros MD [address] [place] [address] Assigned Heart and Vascular Provider 05/03/20 09/24/20 [place] [address] [address] [address] Assigned PCP 09/01/20 [place] [address] [address] [address] [address] Assigned PCP 06/02/20 08/31/20 Murali Cadet MD [address] [place] [address] Assigned Heart and Vascular Provider 09/25/20 12/21/20 Anthony Ballesteros MD [address] [place] [address] Assigned Heart and Vascular Provider 12/22/20 05/28/23 Marilee Mathias RECREATION AIDE [address] [place] [address] Assigned Heart and Vascular Provider 05/29/23 06/11/23 Dixie Bridges EP [facility] [address] [place] [address] Cardiac Rehabilitation Therapist 06/29/23 06/29/24 Anthony Ballesteros MD [address] [place] [address] Assigned Heart and Vascular Provider 06/12/23 08/04/23 Natalia Forman APRN LUCERNE FARMER Assigned Heart and Vascular Provider 08/05/23 10/01/23 Anthony Ballesteros MD [address] [place] [address] Assigned Heart and Vascular Provider 10/02/23 documented as of this encounter
--- OUTSIDE RECORDS SUMMARY | 2023-11-08 14:19 | XMS_ITS | Encounter Summary ---
Author Name Unknown Organization [place] Address [address] [place] [address]. [place] [address] Care Team Providers Care Head Butler Name Role Phone Alfred Rios MD Primary Care Provider + Alfred Rios MD Unavailable [phone] Anthony Ballesteros MD Unavailable [phone] Alfred Rios MD Unavailable [phone] Alfred Rios MD Unavailable [phone] Murali Cadet MD Unavailable [phone] Anthony Ballesteros MD Unavailable [phone] Marilee Mathias FOREIGN LAW CONSULTANT Unavailable [phone] Dix[address] Bridges EP Unavailable [phone] Anthony Ballesteros MD Unavailable [phone] Natalia Forman APRN REAL ESTATE INTERNSHIP Unavailable Unavaila ble Anthony Ballesteros MD Unavailable [phone] Reason for Visit * Reason Comments Medication Refill Encounter Details Date Type Department Care Team (Late st Contact Info) Description 02/17/[address], [address] [place] [address] [place] [address] [place] [address] Medication Refill Social History Tobacco Use Types [...] CDT Gender Identity Male 08/26/2020 6:37 PM FURNACE FILLER Sexual Orientation Straight 08/26/2020 6: 37 PM FURNACE FILLER documented as of this encounter Miscellaneous Notes * Telephone Encounter - Sherri Deluna RN - 02/19/2020 12:20 PM CDT Prescription approved per [facility] Refill Protocol. Sherri Deluna RN [facility] -- Triage Nurse documented in this encounter Plan of Treatment Upcoming Encounters Date Type Department Care Team (Late st Contact Info) Description 01/27/2024 8:30 AM CDT Lab [facility] Laboratory [address] [place] [address] 01/28/2024 9:00 AM CDT Office Visit [facility] Heart [address] [place] [address] Natalia Forman APRN CNP Manoles, Michael Jon, MD [address] [place] [address] documented as of this encounter Visit Diagnoses Diagnosis Essential hypertension, benign documented in this encounter Additional Health Concerns Assessment Noted Time PHQ-9 Depression Total Score: 5 04/15/20 19 7:03 AM CDT documented as of this encounter Care Teams Head Butler Relationship Specialty Start Date End Date Alfred Rios MD PCP - General Family Practice 04/18/15 [place] [address] [place] [address] Assigned PCP 03/22/15 06/01/20 Anthony Ballesteros MD [address] [place] [address] Assigned Heart and Vascular Provider 05/03/20 09/24/20 [place] [address] [address] [place] [address] Assigned PCP 09/01/20 [place] [address] [place] [address] Assigned PCP 06/02/20 08/31/20 Murali Cadet MD [address] [place] [address] Assigned Heart and Vascular Provider 09/25/20 12/21/20 Anthony Ballesteros MD [address] [place] [address] Assigned Heart and Vascular Provider 12/22/20 05/28/23 Marilee Mathias NP [address] [place] [address] Assigned Heart and Vascular Provider 05/29/23 06/11/23 Dixie Bridges EP [facility] [address] [place] [address] Cardiac Rehabilitation Therapist 06/29/23 06/29/24 Anthony Ballesteros MD [address] [place] [address] Assigned Heart and Vascular Provider 06/12/23 08/04/23 Natalia Forman APRN [facility] Assigned Heart and Vascular Provider 08/05/23 10/01/23 Anthony Ballesteros MD [address] [place] [address] Assigned Heart and Vascular Provider 10/02/23 documented as of this encounter
--- OUTSIDE RECORDS SUMMARY | 2023-11-08 14:19 | XMS_ITS | Encounter Summary ---
Author Name Unknown Organization [place] Address [address] [place] [address] Care Team Providers Care Manager Baby Name Role Phone Alfred Rios MD Primary Care Provider + Alfred Rios MD Unavailable + Alfred Rios MD Unavailable + Anthony Ballesteros MD Unavailable [phone] Alfred Rios MD Unavailable [phone] Alfred Rios MD Unavailable +[phone] Murali Cadet MD Unavailable [phone] Anthony Ballesteros MD Unavailable [phone] Marilee Mathias BID CLERK Unavailable [phone] Unavailable [phone] Anthony Ballesteros MD Unavailable [phone] Natalia Forman APRN CLEARANCE CENTER MANAGER Unavailable Unavaila ble Anthony Ballesteros MD Unavailable [phone] Reason for Visit * Reason Onset Date Comments [place] Communication 05/06/2015 Encounter Details Date Type Department Care Team (Late st Contact Info) Description 05/06/2015 [facility] [address], [address] [place] [address] [place] [address] [address] [address] MyChart Communication Social History Tobacco Use Types Packs/Day Years Used Date Smoking Tobacco: Former Cigarettes Q uit: 10/22/1999 Smokeless Tobacco: Never Alcohol Use Standard Drinks/Week Comments Yes 0 (1 standard drink = 0.6 oz pur e alcohol) 1-2 beers daily Sex and Gender Information Value Date Recorded Sex Assigned at Male 12/31/2020 1:31 PM CDT Gender Identity Male 08/26/2020 6:37 PM METER MECHANIC Sexual Orientation Straight 08/26/2020 6: 37 PM METER MECHANIC documented as of this encounter Plan of Treatment Upcoming Encounters Date Type Department Care Team (Late st Contact Info) Description 01/27/2024 8:30 AM CDT Lab [facility] Laboratory [address] [place] [phone] 01/28/2024 9:00 AM CDT Office Visit [facility] [address] [place] [address] Natalia Forman APRN CNP Manoles, Michael Jon, MD [address] [place] [address] documented as of this encounter Visit Diagnoses Not on filedocumented in this encounter Care Teams Manager Baby Relationship Specialty Start Date End Date Alfred Rios MD PCP - General Family Practice 04/18/15 [place] [address] [address] [address] PCP - Assigned PCP 03/22/15 09/13/18 [place] [address] [address] [address] Assigned PCP 03/22/15 06/01/20 Anthony Ballesteros MD [address] [place] [address] Assigned Heart and Vascular Provider 05/03/20 09/24/20 [place] [address] [place] [address] Assigned PCP 09/01/20 [place] [address] [place] [address] Assigned PCP 06/02/20 08/31/20 Murali Cadet MD [address] [place] [address] Assigned Heart and Vascular Provider 09/25/20 12/21/20 Anthony Ballesteros MD [address] [place] [address] Assigned Heart and Vascular Provider 12/22/20 05/28/23 Marilee Mathias NP [address] [place] [address] Assigned Heart and Vascular Provider 05/29/23 06/11/23 Dixie Bridges EP [facility] [address] [place] [address] Cardiac Rehabilitation Therapist 06/29/23 06/29/24 Anthony Ballesteros MD [address] [place] [address] Assigned Heart and Vascular Provider 06/12/23 08/04/23 Natalia Forman APRN [facility] Assigned Heart and Vascular Provider 08/05/23 10/01/23 Anthony Ballesteros MD [address] [place] [address] Assigned Heart and Vascular Provider 10/02/23 documented as of this encounter
== END 2023-10-19 10:01 | disposition home or self-care (01) ==
LOC: NFLDREF 11-08 14:14
PROVIDERS: PCP Family Medicine; Referring Provider Family Medicine; Visit Provider Family Medicine
DX: E78.5 Hyperlipidemia, unspecified (principal); I10 Essential (primary) hypertension; Z12.5 Encounter for screening for malignant neoplasm of prostate
CPT/HCPCS: 80053; 80061; G0103

== ENCOUNTER 2024-10-30 08:40 | Outpatient (CLI) | payer MEDICARE, SELFPAY | END 2024-10-30 08:41 | disposition home or self-care (01) | LOC: NFLDREF 11-01 03:02 | PROVIDERS: PCP Family Medicine; Referring Provider Family Medicine; Visit Provider Family Medicine | DX: Z12.5 Encounter for screening for malignant neoplasm of prostate (principal); I25.10 Atherosclerotic heart disease of native coronary artery without angina pectoris; E78.5 Hyperlipidemia, unspecified | CPT/HCPCS: 80053; 80061; G0103 ==

== ENCOUNTER 2024-11-21 09:37 | Outpatient (CLI) | payer MEDICARE, SELFPAY ==
--- NOTE | 2024-11-28 12:17 | W.PM.SLEEP ---
Sleep Study Details Details Interpreting Provider: Diamond Date of Sleep Study: 11/21/24 Sleep Study Details: STUDY TYPE:? Home unattended ? BMI:? 24.7 ORDERING PROVIDER:? Angelica INDICATION:? Concerned about sleep apnea ? SLEEP SUMMARY:? 484 minutes monitored RESPIRATORY SUMMARY:? AHI 56.8 per CMS guideline. Approximately 38% of the apneas were central. Low oxygen 82 1.2% of study oxygen less than 90% Snoring 96% PERIODIC LIMB MOVEMENTS OF SLEEP:? Not record CARDIAC:? Range 50-92, mean 62.6 beats per minute IMPRESSION:? Mixed central and obstructive sleep apnea. RECOMMENDATION: Rec in [place] in-lab titration for ASV. If not already performed an echocardiogram would need to be done within a year of the study to confirm normal or near normal ejection fraction.
== END 2024-11-21 09:38 | disposition home or self-care (01) ==
LOC: SLEEP 09:38
PROVIDERS: PCP Family Medicine; Visit Provider Family Medicine
DX: G47.33 Obstructive sleep apnea (adult) (pediatric) (principal); G47.31 Primary central sleep apnea
CPT/HCPCS: 95806

== ENCOUNTER 2025-01-08 14:02 | Outpatient (CLI) | payer MEDICARE, SELFPAY ==
--- OUTSIDE RECORDS SUMMARY | 2025-01-09 02:25 | XMS_ITS | Encounter Summary ---
Author Organization [place] Address [address] [facility] [place] [address] Care Team Providers Care Tile Grinder Name Role Phone Alfred Rios MD Primary Care Provider [phone] Anthony Ballesteros MD Unavailable [phone] Alfred Rios MD Unavailable Alfred Rios MD Unavailable Murali Cadet MD Unavailable [phone] Anthony Ballesteros MD Unavailable [phone] Marilee Mathias NP Unavailable [phone] Unavailable [phone] Anthony Ballesteros MD Unavailable [phone] Natalia Forman APRN BACCARAT DEALER Unavailable Unavaila ble Anthony Ballesteros MD Unavailable [phone] Casper Dominguez MD Primary Care Provider [phone] Reason for Visit * Reason Onset Date Comments Covid Concern 08/19/2020 Covid Vaccine Encounter Details Date Type Department Care Team (Late st Contact Info) Description 08/19/2020 My[facility] Medical Advice [address] [address] [place] [address] [place] [address] Covid Concern (Covid Vaccine) Social History Tobacco [...] Assigned at Male 12/31/2020 1:31 PM CDT Legal Sex Male 10:30 AM CDT Gender Identity Male 08/26/2020 6:37 PM TECHNOLOGIST DEVELOPMENT Sexual Orientation Straight 08/26/2020 6: 37 PM TECHNOLOGIST DEVELOPMENT documented as of this encounter Miscellaneous Notes * Telephone Encounter - Regina Burrows RN - 08/20/2020 8:56 AM CST Pod Inns message sent to patient. Regina Burrows RN NOLOGIST DEVELOPMENT documented in this encounter Plan of Treatment Upcoming Encounters Date Type Department Care Team (Late st Contact Info) Description 01/30/2025 8:30 AM CDT Appointment [facility] Specialty Care [address] [facility] [address] [place] [phone] Anthony Ballesteros MD [address] [place] [address] 05/15/2025 8:30 AM TECHNOLOGIST DEVELOPMENT Office Visit [facility] [place] [address] [facility] [address] [place] [address] Anthony Ballesteros MD [address] [place] [address] documented as of this encounter Visit Diagnoses Not on filedocumented in this encounter Additional Health Concerns Assessment Noted Time PHQ-9 Depression Total Score: 3 05/25/20 20 7:02 AM TECHNOLOGIST DEVELOPMENT documented as of this encounter Care Teams Tile Grinder Relationship Specialty Start Date End Date Alfred Rios MD PCP - General Family Practice 04/18/15 01/27/24 Casper Dominguez MD [facility] - [address] [address] PCP - General Family Medicine 01/28/24 Anthony Ballesteros MD [address] [place] [address] Assigned Heart and Vascular Provider 05/03/20 09/24/20 [place] [address] [place] [address] Assigned PCP 09/01/20 08/02/24 [place] [address] [place] [address] Assigned PCP 06/02/20 08/31/20 Murali Cadet MD [address] [place] [address] Assigned Heart and Vascular Provider 09/25/20 12/21/20 Anthony Ballesteros MD [address] [place] [address] Assigned Heart and Vascular Provider 12/22/20 05/28/23 Marilee Mathias SUPERVISOR CARBON PAPER COATING [address] [place], [place] [address] Assigned Heart and Vascular Provider 05/29/23 06/11/[address] [facility] [address] [place] [address] Cardiac Rehabilitation Therapist 06/29/23 06/29/24 Anthony Ballesteros MD [address] [place] [address] Assigned Heart and Vascular Provider 06/12/23 08/04/23 Natalia Forman APRN [facility] Assigned Heart and Vascular Provider 08/05/23 10/01/23 Anthony Ballesteros MD [address] [place] [address] Assigned Heart and Vascular Provider 10/02/23 documented as of this encounter
--- OUTSIDE RECORDS SUMMARY | 2025-01-09 02:25 | XMS_ITS | Encounter Summary ---
Author Organization [place] Address [address] [place] [address] Care Team Providers Care Manager Camp Name Role Phone Anthony Ballesteros MD Unavailable [phone] Casper Dominguez MD Primary Care Provider [phone] Encounter Details Date Type Department Care Team (Late st Contact Info) Description 11/05/2024 [facility] Heart [facility] [address] [place] [address] Anthony Ballesteros MD [address] [facility] [address] [place], [place] [address] Coronary artery disease involving [place] coronary artery of prairie island heart, unspecified whether angina present Social History Tobacco Use Types Packs/Day Years [...] CDT Gender Identity Male 08/26/2020 6:37 PM EXTRUDER OPERATOR MULTIPLE Sexual Orientation Straight 08/26/2020 6: 37 PM EXTRUDER OPERATOR MULTIPLE documented as of this encounter Miscellaneous Notes * Telephone Encounter - Gill Christianson RN - 11/07/2024 9:35 AM CDT ----- Message ----- From: Anthony Ballesteros MD Sent: 11/06/2024 4:06 PM CDT To: Tiny Patterson RN Subject: your query Yes I think it is fine for him to cut his metoprolol to 25 bid. Thanks Updated patient with response from Dr. Ballesteros via [place]. documented in this encounter Plan of Treatment Upcoming Encounters Date Type Department Care Team (Late st Contact Info) Description 01/30/2025 8:[address] [facility] Specialty Care [address] [facility] [address] [place] [address] Anthony Ballesteros MD [address] [place] [address] 05/15/2025 8:30 AM EXTRUDER OPERATOR MULTIPLE Office Visit [facility] Heart [facility] [address] [facility] [address] [place] [address] Anthony Ballesteros MD [address] [place] [address] documented as of this encounter Visit Diagnoses Diagnosis Coronary artery disease involving pra[place] coronary artery of [place] heart, unspecified whether angina present documented in this encounter Additional Health Concerns Assessment Noted Time PHQ-9 Depression Total Score: 3 05/25/20 20 7:02 AM EXTRUDER OPERATOR MULTIPLE documented as of this encounter Care Teams Manager Camp Relationship Specialty Start Date End Date Casper Dominguez MD [facility] [address] [place] [address] PCP - General Family Medicine 01/28/24 Anthony Ballesteros MD [address] [place] [address] Assigned Heart and Vascular Provider 10/02/23 documented as of this encounter
--- OUTSIDE RECORDS SUMMARY | 2025-01-09 02:25 | XMS_ITS | Encounter Summary ---
Author Organization [place] Address [address] [place] [address] Care Team Providers Care Snuff Maker Name Role Phone Alfred Rios MD Primary Care Provider [phone] Alfred Rios MD Unavailable Anthony Ballesteros MD Unavailable [phone] Marilee Mathias REAL ESTATE LEGAL ASSISTANT Unavailable [phone] [address] EP Unavailable [phone] Anthony Ballesteros MD Unavailable [phone] Natalia Forman APRN LATHMAKER Unavailable Unavaila ble Anthony Ballesteros MD Unavailable [phone] Casper Dominguez MD Primary Care Provider [phone] Reason for Visit * Reason Comments Medication Refill Encounter Details Date Type Department Care Team (Late st Contact Info) Description 03/08/2021 Refill [facility] [address] [place] [address] [place] [address] [place] [address] Medication Refill Social History Tobacco [...] CDT Gender Identity Male 08/26/2020 6:37 PM ABSENCE MANAGEMENT CONSULTANT Sexual Orientation Straight 08/26/2020 6: 37 PM ABSENCE MANAGEMENT CONSULTANT documented as of this encounter Miscellaneous Notes [...] Info) Description 01/30/2025 8:30 AM CDT Appointment [facility] Specialty Care [address] [facility] [address] [place] [address] Anthony Ballesteros MD [address] [place] [address] 05/15/2025 8:30 AM ABSENCE MANAGEMENT CONSULTANT Office Visit [facility] [place] [address] [facility] [address] [place] [address] Anthony Ballesteros MD [address] [place] [address] documented as of this encounter Visit Diagnoses Diagnosis Bilateral hip pain Pain in joint, pelvic region and thigh documented in this encounter Additional Health Concerns Assessment Noted Time PHQ-9 Depression Total Score: 3 05/25/20 20 7:02 AM ABSENCE MANAGEMENT CONSULTANT documented as of this encounter Care Teams Snuff Maker Relationship Specialty Start Date End Date Alfred Rios MD PCP - General Family Practice 04/18/15 01/27/24 Casper Dominguez MD [facility] [address] [place] [address] PCP - General Family Medicine 01/28/24 [place] [address] [place] [address] Assigned PCP 09/01/20 08/02/24 Anthony Ballesteros MD [address] [place] [address] Assigned Heart and Vascular Provider 12/22/20 05/28/23 Marilee Mathias REAL ESTATE LEGAL ASSISTANT [address] [place], [place] [address] Assigned Heart and Vascular Provider 05/29/23 06/11/23 Dixie Bridges EP [facility] [address] [place] [address] Cardiac Rehabilitation Therapist 06/29/23 06/29/24 Anthony Ballesteros MD [address] [place] [address] Assigned Heart and Vascular Provider 06/12/23 08/04/23 Natalia Forman APRN LATHMAKER Assigned Heart and Vascular Provider 08/05/23 10/01/23 Anthony Ballesteros MD [address] [place] [address] Assigned Heart and Vascular Provider 10/02/23 documented as of this encounter
--- OUTSIDE RECORDS SUMMARY | 2025-01-09 02:25 | XMS_ITS | Encounter Summary ---
Author Organization [place] Address [address] [place] [address] Care Team Providers Care Video Game Script Writer Name Role Phone Alfred Rios MD Primary Care Provider [phone] Anthony Ballesteros MD Unavailable [phone] Alfred Rios MD Unavailable Alfred Rios MD Unavailable Murali Cadet MD Unavailable [phone] Anthony Ballesteros MD Unavailable [phone] Marilee Mathias NP Unavailable [phone] Unavailable [phone] Anthony Ballesteros MD Unavailable [phone] Natalia Forman APRN AREA DEVELOPMENT CONSULTANT Unavailable Unavaila ble Anthony Ballesteros MD Unavailable [phone] Casper Dominguez MD Primary Care Provider [phone] Reason for Visit * Reason Onset Date Comments Referral 08/19/2020 Physical Therapy Encounter Details Date Type Department Care Team (Late st Contact Info) Description 08/19/2020 [facility] [place] [place] Medical Advice [address] [address] [place] [address] [place] [address] Referral (Physical Therapy) Social History Tobacco Use [...] CDT Gender Identity Male 08/26/2020 6:37 PM PUBLIC STENOGRAPHER Sexual Orientation Straight 08/26/2020 6: 37 PM PUBLIC STENOGRAPHER documented as of this encounter Miscellaneous Notes * Telephone Encounter - Alfred Rios MD - 08/20/2020 3:07 PM PUBLIC STENOGRAPHER We need an appointment, ideally F2F. Alfred Rios MD IC STENOGRAPHER documented in this encounter Plan of Treatment Upcoming Encounters Date Type Department Care Team (Late st Contact Info) Description 01/30/2025 8:30 AM CDT Appointment [facility] Specialty Care [address] [facility] [address] [place] [address] Anthony Ballesteros MD [address] [place] [address] 05/15/2025 8:30 AM PUBLIC STENOGRAPHER Office Visit [facility] [place] [address] [facility] [address] [place] [address] Anthony Ballesteros MD [address] [place] [address] documented as of this encounter Visit Diagnoses Not on filedocumented in this encounter Additional Health Concerns Assessment Noted Time PHQ-9 Depression Total Score: 3 05/25/20 20 7:02 AM PUBLIC STENOGRAPHER documented as of this encounter Care Teams Video Game Script Writer Relationship Specialty Start Date End Date Alfred Rios MD PCP - General Family Practice 04/18/15 01/27/24 Casper Dominguez MD [facility] - [address] [address] PCP - General Family Medicine 01/28/24 Anthony Ballesteros MD [address] [place] [address] Assigned Heart and Vascular Provider 05/03/20 09/24/20 [place] [address] [place] [address] Assigned PCP 09/01/20 08/02/24 [place] [address] [place] [address] Assigned PCP 06/02/20 08/31/20 Murali Cadet MD [address] [place] [address] Assigned Heart and Vascular Provider 09/25/20 12/21/20 Anthony Ballesteros MD [address] [place] [address] Assigned Heart and Vascular Provider 12/22/20 05/28/23 Marilee Mathias BRANCH RETAIL EXECUTIVE [address] [place], [place] [address] Assigned Heart and Vascular Provider 05/29/23 06/11/23 Dixie Bridges EP [facility] [address] [address] Cardiac Rehabilitation Therapist 06/29/23 06/29/24 Anthony Ballesteros MD [address] [place] [address] Assigned Heart and Vascular Provider 06/12/23 08/04/23 Natalia Forman APRN [facility] Assigned Heart and Vascular Provider 08/05/23 10/01/23 Anthony Ballesteros MD [address] [place] [address] Assigned Heart and Vascular Provider 10/02/23 documented as of this encounter
--- OUTSIDE RECORDS SUMMARY | 2025-01-09 02:25 | XMS_ITS | Encounter Summary ---
Author Organization [place] Address [address] [facility] [place] [address] Care Team Providers Care Back Winder Name Role Phone Alfred Rios MD Primary Care Provider [phone] Alfred Rios MD Unavailable + Alfred Rios MD Unavailable + Anthony Ballesteros MD Unavailable [phone] Alfred Rios MD Unavailable Alfred Rios MD Unavailable + Murali Cadet MD Unavailable [phone] Anthony Ballesteros MD Unavailable [phone] Marilee Mathias ACID MAKER Unavailable [phone] Dixie Bridges Unavailable [phone] Anthony Ballesteros MD Unavailable [phone] Natalia Forman APRN HAND STRAIGHTENER Unavailable Unavaila ble Anthony Ballesteros MD Unavailable [phone] Casper Dominguez MD Primary Care Provider [phone] Reason for Visit * Reason Onset Date Comments MyChart Communication 05/06/2015 Encounter Details Date Type Department Care Team (Late st Contact Info) Description 05/06/2015 [facility] [address], [address] [place] [address] [place] [address] [address] [address] MyChart Communication Social History Tobacco Use Types [...] CDT Gender Identity Male 08/26/2020 6:37 PM GRAVURE PRESS SET UP OPERATOR Sexual Orientation Straight 08/26/2020 6: 37 PM GRAVURE PRESS SET UP OPERATOR documented as of this encounter Plan of Treatment Upcoming Encounters Date Type Department Care Team (Late st Contact Info) Description 01/30/2025 8:30 AM CDT Appointment [facility] Specialty Care [address] [place] [address] Anthony Ballesteros MD [address] [place] [address] 05/15/2025 8:30 AM GRAVURE PRESS SET UP OPERATOR Office Visit [facility] [place] [address] [place] [address] Anthony Ballesteros MD [address] [place] [address] documented as of this encounter Visit Diagnoses Not on filedocumented in this encounter Care Teams Back Winder Relationship Specialty Start Date End Date Alfred Rios MD PCP - General Family Practice 04/18/15 01/27/24 [place] [address] [address] [address] PCP - Assigned PCP 03/22/15 09/13/18 Casper Dominguez MD [facility] [address] [place] [address] PCP - General Family Medicine 01/28/24 [place] [address] [place] [address] Assigned PCP 03/22/15 06/01/20 Anthony Ballesteros MD [address] [place] [address] Assigned Heart and Vascular Provider 05/03/20 09/24/20 [place] [address] [place] [address] Assigned PCP 09/01/20 08/02/24 [place] [address] [address] [address] Assigned PCP 06/02/20 08/31/20 Murali Cadet MD [address] [place] [address] Assigned Heart and Vascular Provider 09/25/20 12/21/20 Anthony Ballesteros MD [address] [place] [address] Assigned Heart and Vascular Provider 12/22/20 05/28/23 Marilee Mathias ACID MAKER [address] [place] [address] Assigned Heart and Vascular Provider 05/29/23 06/11/[address] [facility] [address] [address] Cardiac Rehabilitation Therapist 06/29/23 06/29/24 Anthony Ballesteros MD [address] [place] [address] Assigned Heart and Vascular Provider 06/12/23 08/04/23 Natalia Forman APRN HAND STRAIGHTENER Assigned Heart and Vascular Provider 08/05/23 10/01/23 Anthony Ballesteros MD [address] [place] [address] Assigned Heart and Vascular Provider 10/02/23 documented as of this encounter
--- OUTSIDE RECORDS SUMMARY | 2025-01-09 02:25 | XMS_ITS | Encounter Summary ---
Author Organization [place] Address [address] [place] [address] Care Team Providers Care Recycler Name Role Phone Alfred Rios MD Primary Care Provider [phone] Alfred Rios MD Unavailable Anthony Ballesteros MD Unavailable [phone] Marilee Mathias LEASING SALES CONSULTANT Unavailable [phone] Dixie Bridges EP Unavailable [phone] Anthony Ballesteros MD Unavailable [phone] Natalia Forman APRN SALES TRAINING COORDINATOR Unavailable Unavaila ble Anthony Ballesteros MD Unavailable [phone] Casper Dominguez MD Primary Care Provider Reason for Visit * Reason Comments Medication Refill Encounter Details Date Type Department Care Team (Late st Contact Info) Description 02/24/2021 Refill [facility] [address] [place] [address] [place] [address] [place] [address] Medication Refill Social History Tobacco [...] CDT Gender Identity Male 08/26/2020 6:37 PM DAIRY TECHNICIAN Sexual Orientation Straight 08/26/2020 6: 37 PM DAIRY TECHNICIAN documented as of this encounter Miscellaneous Notes * Telephone Encounter - Teresita Easley RN - 02/25/2021 4:53 PM CDT Prescription approved per [facility] protocol. Teresita Easley RN on 02/25/2021 at 4:53 PM documented in this encounter Plan of Treatment Upcoming Encounters Date Type Department Care Team (Late st Contact Info) Description 01/30/2025 8:30 AM CDT Appointment [facility] Specialty Care [address] [facility] [address] [place] [address] Anthony Ballesteros MD [address] [place] [address] 05/15/2025 8:30 AM DAIRY TECHNICIAN Office Visit [facility] [place] [address] [facility] [address] [place] [address] Anthony Ballesteros MD [address] [place] [address] documented as of this encounter Visit Diagnoses Diagnosis 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 documented in this encounter Additional Health Concerns Assessment Noted Time PHQ-9 Depression Total Score: 3 05/25/20 20 7:02 AM DAIRY TECHNICIAN documented as of this encounter Care Teams Recycler Relationship Specialty Start Date End Date Alfred Rios MD PCP - General Family Practice 04/18/15 01/27/24 Casper Dominguez MD [facility] [address] [place] [address] PCP - General Family Medicine 01/28/24 [place] [address] [place] [address] Assigned PCP 09/01/20 08/02/24 Anthony Ballesteros MD [address] [place] [address] Assigned Heart and Vascular Provider 12/22/20 05/28/23 Marilee Mathias LEASING SALES CONSULTANT [address] [place], [place] [address] Assigned Heart and Vascular Provider 05/29/23 06/11/23 Dixie Bridges EP [facility] [address] [place] [address] Cardiac Rehabilitation Therapist 06/29/23 06/29/24 Anthony Ballesteros MD [address] [place] [address] Assigned Heart and Vascular Provider 06/12/23 08/04/23 Natalia Forman APRN SALES TRAINING COORDINATOR Assigned Heart and Vascular Provider 08/05/23 10/01/23 Anthony Ballesteros MD [address] [place] [address] Assigned Heart and Vascular Provider 10/02/23 documented as of this encounter
--- OUTSIDE RECORDS SUMMARY | 2025-01-09 02:25 | XMS_ITS | Encounter Summary ---
Author Organization [place] Address [address] [facility] [place] [address] Care Team Providers Care Screw Machine Operator Name Role Phone Alfred Rios MD Primary Care Provider [phone] Alfred Rios MD Unavailable Anthony Ballesteros MD Unavailable [phone] Marilee Mathias NP Unavailable [phone] Dixie Bridges EP Unavailable [phone] Anthony Ballesteros MD Unavailable [phone] Natalia Forman APRN DRAPERY HEAD FORMER Unavailable Unavaila ble Anthony Ballesteros MD Unavailable [phone] Casper Dominguez MD Primary Care Provider [phone] Reason for Visit * Reason Onset Date Comments Refill Request 05/20/2021 Metoprolol Encounter Details Date Type Department Care Team (Late st Contact Info) Description 05/20/2021 My[facility] [address] [address] [place] [address] [place] [address] Refill Request (Metoprolol) Social History Tobacco Use [...] CDT Gender Identity Male 08/26/2020 6:37 PM CUFF SETTER LOCKSTITCH Sexual Orientation Straight 08/26/2020 6: 37 PM CUFF SETTER LOCKSTITCH documented as of this encounter Miscellaneous Notes * Telephone Encounter - Regina Burrows RN - 05/21/2021 4:29 PM CST Duplicate request. SETTER LOCKSTITCH documented in this encounter Plan of Treatment Upcoming Encounters Date Type Department Care Team (Late st Contact Info) Description 01/30/2025 8:30 AM CDT Appointment [facility] Specialty Care [address] [facility] [address] [place] [address] Anthony Ballesteros MD [address] [place] [address] 05/15/2025 8:30 AM CUFF SETTER LOCKSTITCH Office Visit [facility] [place] [address] [facility] [address] [place] [address] Anthony Ballesteros MD [address] [place] [address] documented as of this encounter Visit Diagnoses Diagnosis Essential hypertension, benign documented in this encounter Additional Health Concerns Assessment Noted Time PHQ-9 Depression Total Score: 3 05/25/20 20 7:02 AM CUFF SETTER LOCKSTITCH documented as of this encounter Care Teams Screw Machine Operator Relationship Specialty Start Date End Date Alfred Rios MD PCP - General Family Practice 04/18/15 01/27/24 Casper Dominguez MD [facility] [address] [place] [address] PCP - General Family Medicine 01/28/24 [place] [address] [place] [address] Assigned PCP 09/01/20 08/02/24 Anthony Ballesteros MD [address] [place] [id number] Assigned Heart and Vascular Provider 12/22/20 05/28/23 Marilee Mathias PERFORMANCE MANAGER [address] [place], [place] [address] Assigned Heart and Vascular Provider 05/29/23 06/11/23 Dixie Bridges EP [facility] [address] [place] [id number] Cardiac Rehabilitation Therapist 06/29/23 06/29/24 Anthony Ballesteros MD [address] [place] [address] Assigned Heart and Vascular Provider 06/12/23 08/04/23 Natalia Forman APRN DRAPERY HEAD FORMER Assigned Heart and Vascular Provider 08/05/23 10/01/23 Anthony Ballesteros MD [address] [place] [address] Assigned Heart and Vascular Provider 10/02/23 documented as of this encounter
--- OUTSIDE RECORDS SUMMARY | 2025-01-09 02:25 | XMS_ITS | Encounter Summary ---
Author Organization [place] Address [address] [facility] [place] [address] Care Team Providers Care Furnace Tapper Name Role Phone Alfred Rios MD Primary Care Provider [phone] Alfred Rios MD Unavailable Anthony Ballesteros MD Unavailable [phone] Marilee Mathias VEGETABLE II FARMWORKER Unavailable [phone] Dixie Bridges EP Unavailable [phone] Anthony Ballesteros MD Unavailable [phone] Natalia Forman APRN CHIEF HYDROELECTRIC STATION OPERATOR Unavailable Unavaila ble Anthony Ballesteros MD Unavailable [phone] Casper Dominguez MD Primary Care Provider Reason for Visit * Reason Comments Medication Refill Encounter Details Date Type Department Care Team (Late st Contact Info) Description 01/31/2022 Refill [facility] [address] [place] [address] [place] [address] [place] [address] Medication Refill Social History Tobacco [...] CDT Gender Identity Male 08/26/2020 6:37 PM TRANSCRIPT EVALUATOR Sexual Orientation Straight 08/26/2020 6: 37 PM TRANSCRIPT EVALUATOR COVID-19 Exposure Response Date Recorded In the [...] Info) Description 01/30/2025 8:30 AM CDT Appointment [facility] Specialty Care [address] [facility] [address] [place] [address] Anthony Ballesteros MD [address] [place] [address] 05/15/2025 8:30 AM TRANSCRIPT EVALUATOR Office [facility] [address] [facility] [address] [place] [address] Anthony Ballesteros MD [address] [place] [address] documented as of this encounter Visit Diagnoses Diagnosis Mild intermittent asthma without complication Unspecified asthma documented in this encounter Additional Health Concerns Assessment Noted Time PHQ-9 Depression Total Score: 3 05/25/20 20 7:02 AM TRANSCRIPT EVALUATOR documented as of this encounter Care Teams Furnace Tapper Relationship Specialty Start Date End Date Alfred Rios MD PCP - General Family Practice 04/18/15 01/27/24 Casper Dominguez MD [facility] - [address] [address] PCP - General Family Medicine 01/28/24 [place] [address] [facility] [place] [address] Assigned PCP 09/01/20 08/02/24 Anthony Ballesteros MD [address] [place] [address] Assigned Heart and Vascular Provider 12/22/20 05/28/23 Marilee Mathias VEGETABLE II FARMWORKER [address] [place], [place] [address] Assigned Heart and Vascular Provider 05/29/23 06/11/23 Dixie Bridges EP [facility] [address] [address] Cardiac Rehabilitation Therapist 06/29/23 06/29/24 Anthony Ballesteros MD [address] [place] [address] Assigned Heart and Vascular Provider 06/12/23 08/04/23 Natalia Forman APRN CHIEF HYDROELECTRIC STATION OPERATOR Assigned Heart and Vascular Provider 08/05/23 10/01/23 Anthony Ballesteros MD [address] [place] [id number] Assigned Heart and Vascular Provider 10/02/23 documented as of this encounter
--- OUTSIDE RECORDS SUMMARY | 2025-01-09 02:25 | XMS_ITS | Encounter Summary ---
Author Organization [place] Address [address] [facility] [place] [address] Care Team Providers Care Customs Compliance Manager Name Role Phone Alfred Rios MD Primary Care Provider [phone] Alfred Riso MD Unavailable + Alfred Rios MD Unavailable + Anthony Ballesteros MD Unavailable [phone] Alfred Rios MD Unavailable Alfred Rios MD Unavailable Murali Cadet MD Unavailable [phone] Anthony Ballesteros MD Unavailable [phone] Marilee Mathias HOUSESMITH Unavailable [phone] Dixie Bridges Unavailable [phone] Anthony Ballesteros MD Unavailable [phone] Natalia Forman APRN MEDICAL BILLING CLERK Unavailable Unavaila ble Anthony Ballesteros MD Unavailable [phone] Casper Dominguez MD Primary Care Provider [phone] Encounter Details Date Type Department Care Team (Late st Contact Info) Description 12/24/2015 [facility] Medical Advice [address], [address] [place] [address] Gill Aragon, [facility] Social History Tobacco Use Types Packs/Day Years [...] CDT Gender Identity Male 08/26/2020 6:37 PM HEEL TURNER Sexual Orientation Straight 08/26/2020 6: 37 PM HEEL TURNER documented as of this encounter Plan of Treatment Upcoming Encounters Date Type Department Care Team (Late st Contact Info) Description 01/30/2025 8:30 AM CDT Appointment [facility] Specialty Care [address] [facility] [address] [place] [address] Anthony Ballesteros MD [address] [place] [id number] 05/15/2025 8:30 AM HEEL TURNER Office Visit [facility] [address] [place] [address] Anthony Ballesteros MD [address] [place] [address] documented as of this encounter Visit Diagnoses Not on filedocumented in this encounter Care Teams Customs Compliance Manager Relationship Specialty Start Date End Date Alfred Rios MD PCP - General Family Practice 04/18/15 01/27/24 [place] [address] [address] [address] PCP - Assigned PCP 03/22/15 09/13/18 Casper Dominguez MD [facility] [address] [place] [address] PCP - General Family Medicine 01/28/24 [place] [address] [place] [address] Assigned PCP 03/22/15 06/01/20 Anthony Ballesteros MD [address] [place] [address] Assigned Heart and Vascular Provider 05/03/20 09/24/20 [place] [address] [place] [address] Assigned PCP 09/01/20 08/02/24 [place] [address] [place] [address] Assigned PCP 06/02/20 08/31/20 Murali Cadet MD [address] [place] [address] Assigned Heart and Vascular Provider 09/25/20 12/21/20 Anthony Ballesteros MD [address] [place] [address] Assigned Heart and Vascular Provider 12/22/20 05/28/23 Marilee Mathias HOUSESMITH [address] [place] [address] Assigned Heart and Vascular Provider 05/29/23 06/11/23 Dixie Bridges EP [facility] [address] [address] Cardiac Rehabilitation Therapist 06/29/23 06/29/24 Anthony Ballesteros MD [address] [place] [address] Assigned Heart and Vascular Provider 06/12/23 08/04/23 Natalia Forman APRN [facility] Assigned Heart and Vascular Provider 08/05/23 10/01/23 Anthnoy Ballesteros MD [address] [place] [address] Assigned Heart and Vascular Provider 10/02/23 documented as of this encounter
--- OUTSIDE RECORDS SUMMARY | 2025-01-09 02:25 | XMS_ITS | Encounter Summary ---
Author Organization [place] Address [address] [place] [address] Care Team Providers Care Electrical Prospecting Operator Name Role Phone Alfred Rios MD Primary Care Provider [phone] Alfred Rios MD Unavailable Anthony Ballesteros MD Unavailable [phone] Marilee Mathias CONDUCTOR ORCHESTRA Unavailable [phone] Dixie Bridges EP Unavailable [phone] Anthony Ballesteros MD Unavailable [phone] Natalia Forman APRN LOCOMOTIVE ENGINEER Unavailable Unavaila ble Anthony Ballesteros MD Unavailable [phone] Casper Dominguez MD Primary Care Provider Reason for Visit * Reason Onset Date Comments Refill Request 10/13/2021 nitroGLYcerin (N ITROSTAT) 0.4 MG sublingual tablet Encounter Details Date Type Department Care Team (Late st Contact Info) Description 10/13/[address] [facility] [address] [place] [address] [place] [address] [place] [address] Refill Request (nitroGLYcerin (NITROSTAT) 0.4 [...] CDT Gender Identity Male 08/26/2020 6:37 PM CORE MACHINE TENDER Sexual Orientation Straight 08/26/2020 6: 37 PM CORE MACHINE TENDER documented as of this encounter Miscellaneous Notes * Telephone Encounter - Sol Alicia RN - 10/14/2021 2:32 PM CDT Prescription approved per [facility] Refill Protocol. Sol Alicia RN on 10/14/2021 at 2:32 PM documented in this encounter Plan of Treatment Upcoming Encounters Date Type Department Care Team (Late st Contact Info) Description 01/30/2025 8:30 AM CDT Appointment [facility] Specialty Care [address] [facility] [address] [place] [address] Anthony Ballesteros MD [address] [place] [address] 05/15/2025 8:30 AM CORE MACHINE TENDER Office Visit [facility] [place] [address] [facility] [address] [place] [address] Anthony Ballesteros MD [address] [place] [id number] documented as of this encounter Visit Diagnoses Diagnosis Coronary artery disease involving coronary bypass graft of [place] heart without angina pectoris documented in this encounter Additional Health Concerns Assessment Noted Time PHQ-9 Depression Total Score: 3 05/25/20 20 7:02 AM CORE MACHINE TENDER documented as of this encounter Care Teams Electrical Prospecting Operator Relationship Specialty Start Date End Date Alfred Rios MD PCP - General Family Practice 04/18/15 01/27/24 Casper Dominguez MD [facility] [address] [place] [address] PCP - General Family Medicine 01/28/24 [place] [address] [place] [address] Assigned PCP 09/01/20 08/02/24 Anthony Ballesteros MD [address] [place] [address] Assigned Heart and Vascular Provider 12/22/20 05/28/23 Marilee Mathias CONDUCTOR ORCHESTRA [address] [place], [place] [address] Assigned Heart and Vascular Provider 05/29/23 06/11/23 Dixie Bridges EP [facility] [address] [address] Cardiac Rehabilitation Therapist 06/29/23 06/29/24 Anthony Ballesteros MD [address] [place] [address] Assigned Heart and Vascular Provider 06/12/23 08/04/23 Natalia Forman APRN LOCOMOTIVE ENGINEER Assigned Heart and Vascular Provider 08/05/23 10/01/23 Anthony Ballesteros MD [address] [place] [address] Assigned Heart and Vascular Provider 10/02/23 documented as of this encounter
--- OUTSIDE RECORDS SUMMARY | 2025-01-09 02:25 | XMS_ITS | Encounter Summary ---
Author Organization [place] Address [address] [place] [address] Care Team Providers Care Cuff Stitcher Name Role Phone Alfred Rios MD Primary Care Provider [phone] Alfred Rios MD Unavailable Anthony Ballesteros MD Unavailable [phone] Alfred Rios MD Unavailable Alfred Rios MD Unavailable Murali Cadet MD Unavailable [phone] Anthony Ballesteros MD Unavailable [phone] Marilee Mathias NP Unavailable [phone] Dix[address] Brid[address] Unavailable [phone] Anthony Ballesteros MD Unavailable [phone] Natalia Forman APRN HYDRAULIC ASSEMBLER Unavailable Unavaila ble Anthony Ballesteros MD Unavailable [phone] Casper Dominguez MD Primary Care Provider [phone] Encounter Details Date Type Department Care Team (Late st Contact Info) Description 10/11/2019 MyC Medical Advice [address], [address] [place] [address] Litzy Porras, ROLL CUTTER Social History Tobacco Use Types Packs/Day Years [...] CDT Gender Identity Male 08/26/2020 6:37 PM CRM SYSTEM ADMINISTRATOR Sexual Orientation Straight 08/26/2020 6: 37 PM CRM SYSTEM ADMINISTRATOR documented as of this encounter Plan of Treatment Upcoming Encounters Date Type Department Care Team (Late st Contact Info) Description 01/30/2025 8:30 AM CDT Appointment [facility] Specialty Care [address] [facility] [address] [place] [address] Anthony Ballesteros MD [address] [place] [address] 05/15/2025 8:30 AM CRM SYSTEM ADMINISTRATOR Office Visit [facility] [place] [address] [facility] [address] [place] [address] Anthony Ballesteros MD [address] [place] [address] documented as of this encounter Visit Diagnoses Not on filedocumented in this encounter Additional Health Concerns Assessment Noted Time PHQ-9 Depression Total Score: 5 04/15/20 19 7:03 AM CDT documented as of this encounter Care Teams Cuff Stitcher Relationship Specialty Start Date End Date Alfred Rios MD PCP - General Family Practice 04/18/15 01/27/[address] [facility] - [address] [address] PCP - General Family Medicine 01/28/24 [place] [address] [address] [address] Assigned PCP 03/22/15 06/01/20 Anthony Ballesteros MD [address] [place] [id number] Assigned Heart and Vascular Provider 05/03/20 09/24/20 [place] [address] [address] [address] Assigned PCP 09/01/20 08/02/24 [place] [address] [address] [address] Assigned PCP 06/02/20 08/31/20 Murali Cadet MD [address] [place] [address] Assigned Heart and Vascular Provider 09/25/20 12/21/20 Anthony Ballesteros MD [address] [place] [id number] Assigned Heart and Vascular Provider 12/22/20 05/28/23 Marilee Mathias NP [address], [place] [address] Assigned Heart and Vascular Provider 05/29/23 06/11/23 Dixie Bridges EP [facility] [address] [place] [address] Cardiac Rehabilitation Therapist 06/29/23 06/29/24 Anthony Ballesteros MD [address] [place] [address] Assigned Heart and Vascular Provider 06/12/23 08/04/23 Natalia Forman APRN [facility] Assigned Heart and Vascular Provider 08/05/23 10/01/23 Anthony Ballesteros MD [address] [place] [address] Assigned Heart and Vascular Provider 10/02/23 documented as of this encounter
--- OUTSIDE RECORDS SUMMARY | 2025-01-09 02:25 | XMS_ITS | Encounter Summary ---
Author Organization [place] Address [address] [facility] [place] [address] Care Team Providers Care Hide Puller Name Role Phone Alfred Rios MD Primary Care Provider [phone] Anthony Ballesteros MD Unavailable [phone] Alfred Rios MD Unavailable Alfred Rios MD Unavailable Murali Cadet MD Unavailable [phone] Anthony Ballesteros MD Unavailable [phone] Marilee Mathias NP Unavailable [phone] [place] Brid[place] EP Unavailable [phone] Anthony Ballesteros MD Unavailable [phone] Natalia Forman APRN HEAD OF STRATEGY Unavailable Unavaila ble Anthony Ballesteros MD Unavailable [phone] Casper Dominguez MD Primary Care Provider [phone] Encounter Details Date Type Department Care Team (Late st Contact Info) Description 08/21/2020 [facility] [place] [address] [place] [address] Murali Cadet MD [address] [facility] [address] [place] [address] Social History Tobacco Use Types Packs/Day Years [...] CDT Gender Identity Male 08/26/2020 6:37 PM EMPLOYMENT RECRUITER Sexual Orientation Straight 08/26/2020 6: 37 PM EMPLOYMENT RECRUITER documented as of this encounter Plan of Treatment Upcoming Encounters Date Type Department Care Team (Late st Contact Info) Description 01/30/2025 8:30 AM CDT Appointment [facility] [address] [facility] [address] [place] [address] Anthnoy Ballesteros MD [address] [place] [address] 05/15/2025 8:30 AM EMPLOYMENT RECRUITER Office Visit [facility] [place] [address] [facility] [address] [place] [address] Anthony Ballesteros MD [address] [place] [address] documented as of this encounter Visit Diagnoses Not on filedocumented in this encounter Additional Health Concerns Assessment Noted Time PHQ-9 Depression Total Score: 3 05/25/20 20 7:02 AM EMPLOYMENT RECRUITER documented as of this encounter Care Teams Hide Puller Relationship Specialty Start Date End Date Alfred Rios MD PCP - General Family Practice 04/18/15 01/27/24 Casper Dominguez MD [address] [address] PCP - General Family Medicine 01/28/24 Anthony Ballesteros MD [address] [place] [address] Assigned Heart and Vascular Provider 05/03/20 09/24/20 [place] [address] [address] [address] Assigned PCP 09/01/20 08/02/24 [place] [address] [address] [address] Assigned PCP 06/02/20 08/31/20 Murali Cadet MD [address] [place] [address] Assigned Heart and Vascular Provider 09/25/20 12/21/20 Anthony Ballesteros MD [address] [place] [address] Assigned Heart and Vascular Provider 12/22/20 05/28/23 Marilee Mathias SCCM ADMINISTRATOR [address] [place] [address] Assigned Heart and Vascular Provider 05/29/23 06/11/23 [place] Bridges EP [facility] [address] [place] [address] Cardiac Rehabilitation Therapist 06/29/23 06/29/24 Anthony Ballesteros MD [address] [place] [address] Assigned Heart and Vascular Provider 06/12/23 08/04/23 Natalia Forman APRN [facility] Assigned Heart and Vascular Provider 08/05/23 10/01/23 Anthony Ballesteros MD [address] [place] [address] Assigned Heart and Vascular Provider 10/02/23 documented as of this encounter
--- OUTSIDE RECORDS SUMMARY | 2025-01-09 02:25 | XMS_ITS | Encounter Summary ---
Author Organization [employer] Address [address] [facility] [facility] [place] [address] Care Team Providers Care Verifying Specialist Name Role Phone Anthony Ballesteros MD Unavailable [phone] Casper Dominguez MD Primary Care Provider [phone] Reason for Referral * CV Testing (Routine) - Authorized Specialty Diagnoses / Procedures Referred By Contac t Referred To Contact Cardiology Diagnoses Coronary artery disease involving [place] coronary artery of [place] heart, unspecified whether angina present Hyperlipidemia with target LDL less than 100 S/P CABG (coronary artery bypass graft) CAD (coronary artery disease) Dyspnea Exertional angina Essential hypertension Procedures Echocardiogram Complete ZZHC TTE W/DOPPLER, COMPLETE ZZHC ECHO COMPLETE W DOPPLER W CONTRAST ZZHC ECHO COMPLETE W DOPPLER W/O CONTRAST ZZHC IV PUSH SINGLE, INITIAL SUBSTANCE ZZHC US GUIDE FOR PERICARDIOCENTESIS ZZHC ECHO MYOCARD BX ZZC INJECTION, PERFLUTREN LIPID MICROSPHERES, PER ML ZZHC STATISTIC IV PUSH SINGLE INITIAL SUBSTANCE NJ ECHO MYOCARD BX NJ INJECTION, PERFLUTREN LIPID MICROSPHERES, PER ML NJ TTE W/DOPPLER, COMPLETE NJ IV PUSH SINGLE, INITIAL SUBSTANCE NJ TTE W/DOPPLER, COMPLETE NJ TTE W/DOPPLER, COMPLETE HC US GUIDE FOR PERICARDIOCENTESIS HC ECHO MYOCARD BX HC IV PUSH SINGLE, INITIAL SUBSTANCE HC STATISTIC IV PUSH SINGLE INITIAL SUBSTANCE HC ECHO COMPLETE W DOPPLER W CONTRAST HC ECHO COMPLETE W DOPPLER W/O CONTRAST Anthony Ballesteros MD [address] [place] [address] Phone: tel: fax: [facility] [address] [place] [address] Phone: tel: fax: Referral ID Status Reason Start Date Expiration Date V isits Requested Visits Authorized [id number] Authorized 01/03/2025 01/03/2026 1 1 Encounter Details Date Type Department Care Team (Latest Contact Info) Description 01/02/2025 MyC Medical Advice [facility] [place] [address] [facility] [address] [place] [address] Anthony Ballesteros MD [address] [place], [place] [address] Coronary artery disease involving [place] coronary artery of [place] heart, unspecified whether angina present (Primary Dx); Hyperlipidemia with target LDL less than 100; S/P CABG (coronary artery bypass graft); CAD (coronary artery disease); Dyspnea; Exertional angina; Essential hypertension Social History Tobacco Use Types Packs/Day Years [...] CDT Gender Identity Male 08/26/2020 6:37 PM DRESS FITTER Sexual Orientation Straight 08/26/2020 6: 37 PM DRESS FITTER documented as of this encounter Miscellaneous Notes * Telephone Encounter - Tiny Patterson RN - 01/03/2025 8:58 AM CDT Pt sent [employer] message regarding Echo. Placed order for Echo. Sent message to pt. Per Favian Myers Michael Jon, MD to Gill Christianson RN 01/02/25 4:53 PM Lev Garland, Please order TTE as requested by patient and his sleep specialist. I am happy to see the patient again should he so request. Dr.Manoles Franks RN [facility] documented in this encounter Plan of Treatment Upcoming Encounters Date Type Department Care Team (Late st Contact Info) Description 01/30/2025 8:30 AM CDT Appointment [facility] Special[facility] Care [address] [facility] [address] [place] [address] Anthony Ballesteros MD [address] [place] [address] 05/15/2025 8:30 AM DRESS FITTER Office Visit [facility] [address] [facility] [address] [place] [address] Anthony Ballesteros MD [address] [place] [address] Scheduled Orders Name Type Priority Associated Diagnoses Orde r Schedule Echocardiogram Complete Echocardiography Routine Coronary artery disease involving [place] coronary artery of [place] heart, unspecified whether angina present Hyperlipidemia with target LDL less than 100 S/P CABG (coronary artery bypass graft) CAD (coronary artery disease) Dyspnea Exertional angina Essential hypertension Expected: 01/17/2025 (Approximate), Expires: 04/05/2026 documented as of this encounter Visit Diagnoses Diagnosis Coronary artery disease involving [place] coronary artery of [place] heart, unspecified whether angina present- Primary Hyperlipidemia with target LDL less than 100 Other and unspecified hyperlipidemia S/P CABG (coronary artery bypass graft) Postsurgical aortocoronary bypass status Dyspnea Other dyspnea and respiratory abnormality Exertional angina Other and unspecified angina pectoris Essential hypertension Unspecified essential hypertension documented in this encounter Additional Health Concerns Assessment Noted Time PHQ-9 Depression Total Score: 3 05/25/20 20 7:02 AM DRESS FITTER documented as of this encounter Care Teams Verifying Specialist Relationship Specialty Start Date End Date Casper Dominguez MD [facility] - [address] [address] PCP - General Family Medicine 01/28/24 Anthony Ballesteros MD [address] [place] [address] Assigned Heart and Vascular Provider 10/02/23 documented as of this encounter
--- OUTSIDE RECORDS SUMMARY | 2025-01-09 02:25 | XMS_ITS | Encounter Summary ---
Author Organization [place] Address [address] [place] [address] Care Team Providers Care Mysql Database Administrator Name Role Phone Alfred Rios MD Primary Care Provider [phone] Alfred Rios MD Unavailable + Alfred Rios MD Unavailable + Anthony Ballesteros MD Unavailable [phone] Alfred Rios MD Unavailable Alfred Rios MD Unavailable + Murali Cadet MD Unavailable [phone] Anthony Ballesteros MD Unavailable [phone] Marilee Mathias SALES SUPPORT ASSISTANT Unavailable [phone] [place] Brid[place] Unavailable [phone] Anthony Ballesteros MD Unavailable [phone] Natalia Forman APRN SPECIAL SERVICES DIRECTOR Unavailable Unavaila ble Anthony Ballesteros MD Unavailable [phone] Casper Dominguez MD Primary Care Provider [phone] Reason for Visit * Reason Onset Date Comments Refill Request 04/22/2015 Pravastatin Encounter Details Date Type Department Care Team (Late st Contact Info) Description 04/22/2015 [facility] [address] [place] [address], [address] [place] [address] [place] [address] [place] [address] Refill Request (Pravastatin) Social History Tobacco Use [...] CDT Gender Identity Male 08/26/2020 6:37 PM CORRECTIONAL COUNSELOR/CASE MANAGER Sexual Orientation Straight 08/26/2020 6: 37 PM CORRECTIONAL COUNSELOR/CASE MANAGER documented as of this encounter Miscellaneous Notes * Telephone Encounter - Regina Burrows RN - 04/22/2015 3:27 PM CDT Pravastatin 20mg Last Written Prescription Date: 03/18/2015 Last Fill Quantity: 30, # refills: 0 Last Office Visit with [facility] primary care provider: 04/16/2015 CHOL 200 04/16/2015 HDL 61 04/16/2015 LDL 124 04/16/2015 TRIG 74 04/16/2015 CHOLHDLRATIO 3.3 04/16/2015 Prescription approved per [facility] Refill Protocol. Regina Burrows RN documented in this encounter Plan of Treatment Upcoming Encounters Date Type Department Care Team (Late st Contact Info) Description 01/30/2025 8:30 AM CDT Appointment [facility] Specialty Care [address] [facility] [address] [place] [address] Anthony Ballesteros MD [address] [place] [address] 05/15/2025 8:30 AM CORRECTIONAL COUNSELOR/CASE MANAGER Office Visit [facility] [place] [address] [facility] [address] [place] [address] Anthony Ballesteros MD [address] [place] [address] documented as of this encounter Visit Diagnoses Diagnosis Hyperlipidemia LDL goal < 130- Primary Other and unspecified hyperlipidemia documented in this encounter Care Teams Mysql Database Administrator Relationship Specialty Start Date End Date Alfred Rios MD PCP - General Family Practice 04/18/15 01/27/24 [place] [address] [address] [address] PCP - Assigned PCP 03/22/15 09/13/18 Casper Dominguez MD [facility] - [address] [address] PCP - General Family Medicine 01/28/24 [place] [address] [address] [address] Assigned PCP 03/22/15 06/01/20 Anthony Ballesteros MD [address] [place] [address] Assigned Heart and Vascular Provider 05/03/20 09/24/20 [place] [address] [address] [address] Assigned PCP 09/01/20 08/02/24 [place] [address] [address] [address] Assigned PCP 06/02/20 08/31/20 Murali Cadet MD [address] [place] [address] Assigned Heart and Vascular Provider 09/25/20 12/21/20 Anthony Ballesteros MD [address] [place] [address] Assigned Heart and Vascular Provider 12/22/20 05/28/23 Marilee Mathias NP [address] [place], [place] [address] Assigned Heart and Vascular Provider 05/29/23 06/11/23 [place]ie Bridges EP [facility] [address] [place] [address] Cardiac Rehabilitation Therapist 06/29/23 06/29/24 Anthony Ballesteros MD [address] [place] [address] Assigned Heart and Vascular Provider 06/12/23 08/04/23 Natalia Forman APRN SPECIAL SERVICES DIRECTOR Assigned Heart and Vascular Provider 08/05/23 10/01/23 Anthony Ballesteros MD [address] [place] [address] Assigned Heart and Vascular Provider 10/02/23 documented as of this encounter
--- OUTSIDE RECORDS SUMMARY | 2025-01-09 02:26 | XMS_ITS | Encounter Summary ---
Author Organization [place] Address [address] [facility] [place] [address] Care Team Providers Care Credit Manager Name Role Phone Alfred Rios MD Primary Care Provider [phone] Alfred Rios MD Unavailable Anthony Ballesteros MD Unavailable [phone] Alfred Rios MD Unavailable Alfred Rios MD Unavailable Murali Cadet MD Unavailable [phone] Anthony Ballesteros MD Unavailable [phone] Marilee Mathias NP Unavailable [phone] [place] [address] Unavailable [phone] Anthony Ballesteros MD Unavailable [phone] Natalia Forman APRN CAGE CLERK Unavailable Unavaila ble Anthony Ballesteros MD Unavailable [phone] Casper Dominguez MD Primary Care Provider [phone] Reason for Visit * Reason Onset Date Comments Refill Request 05/05/2020 Encounter Details Date Type Department Care Team (Late st Contact Info) Description 05/05/2020 [facility] [address] [place] [address] [place] [address] [place] [address] Refill Request Social History Tobacco Use Types [...] CDT Gender Identity Male 08/26/2020 6:37 PM METAL FABRICATING INSPECTOR Sexual Orientation Straight 08/26/2020 6: 37 PM METAL FABRICATING INSPECTOR COVID-19 Exposure Response Date Recorded In the [...] Adult Preventative Visit with Alfred Rios MD [facility] [address] [place] [address] Brionna Yates RN, BSN Message handled by CLINIC NURSE. documented in this encounter Plan of Treatment Upcoming Encounters Date Type Department Care Team (Late st Contact Info) Description 01/30/2025 8:30 AM CDT Appointment [facility] Specialty Care [address] [facility] [address] [place] [address] Anthony Ballesteros MD [address] [place] [address] 05/15/2025 8:30 AM METAL FABRICATING INSPECTOR Office Visit [facility] [address] [facility] [address] [place] [phone] Anthony Ballesteros MD [address] [place] [address] documented as of this encounter Visit Diagnoses Diagnosis Mild intermittent asthma without complication Unspecified asthma documented in this encounter Additional Health Concerns Assessment Noted Time PHQ-9 Depression Total Score: 5 04/15/20 19 7:03 AM CDT documented as of this encounter Care Teams Credit Manager Relationship Specialty Start Date End Date Alfred Rios MD PCP - General Family Practice 04/18/15 01/27/24 Casper Dominguez MD [facility] - [address] [address] PCP - General Family Medicine 01/28/24 [place] [address] [address] [address] Assigned PCP 03/22/15 06/01/20 Anthony Ballesteros MD [address] [place] [address] Assigned Heart and Vascular Provider 05/03/20 09/24/20 [place] [address] [address] [address] Assigned PCP 09/01/20 08/02/24 [place] [address] [place] [address] Assigned PCP 06/02/20 08/31/20 Murali Cadet MD [address] [place] [address] Assigned Heart and Vascular Provider 09/25/20 12/21/20 Anthony Ballesteros MD [address] [place] [address] Assigned Heart and Vascular Provider 12/22/20 05/28/23 Marilee Mathias LOOM CHANGEOVER OPERATOR [address] [place], [place] [address] Assigned Heart and Vascular Provider 05/29/23 06/11/23 [place] Bridges EP [facility] [address] [place] [address] Cardiac Rehabilitation Therapist 06/29/23 06/29/24 Anthony Ballesteros MD [address] [place] [address] Assigned Heart and Vascular Provider 06/12/23 08/04/23 Natalia Forman APRN CAGE CLERK Assigned Heart and Vascular Provider 08/05/23 10/01/23 Anthony Ballesteros MD [address] [place] [address] Assigned Heart and Vascular Provider 10/02/23 documented as of this encounter
--- OUTSIDE RECORDS SUMMARY | 2025-01-09 02:26 | XMS_ITS | Encounter Summary ---
Author Organization [place] Address [address] [facility] [place] [address] Care Team Providers Care Farm Crew Leader Name Role Phone Alfred Rios MD Primary Care Provider [phone] Anthony Ballesteros MD Unavailable [phone] Alfred Rios MD Unavailable Alfred Rios MD Unavailable Murali Cadet MD Unavailable [phone] Anthony Ballesteros MD Unavailable [phone] Marilee Mathias NP Unavailable [phone] [place] Unavailable [phone] Anthony Ballesteros MD Unavailable [phone] Natalia Forman APRN MEDICAL RESEARCH ASSISTANT Unavailable Unavaila ble Anthony Ballesteros MD Unavailable [phone] Casper Dominguez MD Primary Care Provider Encounter Details Date Type Department Care Team (Late st Contact Info) Description 08/21/2020 [facility] [place] [facility] [address] [facility] [address] [place] [address] Anthony Ballesteros MD [address] [facility] [address] [place] [address] Social History Tobacco Use Types Packs/Day [...] CDT Gender Identity Male 08/26/2020 6:37 PM PREMIUM REPRESENTATIVE Sexual Orientation Straight 08/26/2020 6: 37 PM PREMIUM REPRESENTATIVE documented as of this encounter Plan of Treatment Upcoming Encounters Date Type Department Care Team (Late st Contact Info) Description 01/30/2025 8:30 AM CDT Appointment [facility] Specialty Care [address] [facility] [address] [place] [address] Anthony Ballesteros MD [address] [place] [address] 05/15/2025 8:30 AM PREMIUM REPRESENTATIVE Office Visit [facility] [address] [facility] [address] [place] [address] Anthony Ballesteros MD [address] [place], [place] [address] documented as of this encounter Visit Diagnoses Not on filedocumented in this encounter Additional Health Concerns Assessment Noted Time PHQ-9 Depression Total Score: 3 05/25/20 20 7:02 AM PREMIUM REPRESENTATIVE documented as of this encounter Care Teams Farm Crew Leader Relationship Specialty Start Date End Date Alfred Rios MD PCP - General Family Practice 04/18/15 01/27/24 Casper Dominguez MD [facility] [address] [address] PCP - General Family Medicine 01/28/24 Anthony Ballesteros MD [address] [place] [address] Assigned Heart and Vascular Provider 05/03/20 09/24/20 [place] [address] [address] [address] Assigned PCP 09/01/20 08/02/24 [place] [address] [address] [address] Assigned PCP 06/02/20 08/31/20 Murali Cadet MD [address] [place] [address] Assigned Heart and Vascular Provider 09/25/20 12/21/20 Anthony Ballesteros MD [address] [place] [address] Assigned Heart and Vascular Provider 12/22/20 05/28/23 Marilee Mathias NP [address] [place] [address] Assigned Heart and Vascular Provider 05/29/23 06/11/23 [place] Bridges EP [facility] [address] [place] [address] Cardiac Rehabilitation Therapist 06/29/23 06/29/24 Anthony Ballesteros MD [address] [place] [address] Assigned Heart and Vascular Provider 06/12/23 08/04/23 Natalia Forman APRN [facility] Assigned Heart and Vascular Provider 08/05/23 10/01/23 Anthony Ballesteros MD [address] [place] [address] Assigned Heart and Vascular Provider 10/02/23 documented as of this encounter
--- OUTSIDE RECORDS SUMMARY | 2025-01-09 02:26 | XMS_ITS | Encounter Summary ---
Author Organization [place] Address [address] [place] [address] Care Team Providers Care Instrument Technologist Name Role Phone Alfred Rios MD Primary Care Provider [phone] Alfred Rios MD Unavailable [place] Unavailable [phone] Anthony Ballesteros MD Unavailable [phone] Casper Dominguez MD Primary Care Provider [phone] Encounter Details Date Type Department Care Team (Late st Contact Info) Description 10/07/2023 MyC Medical Advice [facility] [address] [place] [address] [address] [place] [address] Ryland Moseley Social History Tobacco Use Types Packs/Day [...] CDT Gender Identity Male 08/26/2020 6:37 PM SUPERINTENDENT CIRCUS Sexual Orientation Straight 08/26/2020 6: 37 PM SUPERINTENDENT CIRCUS documented as of this encounter Plan of Treatment Upcoming Encounters Date Type Department Care Team (Late st Contact Info) Description 01/30/2025 8:30 AM CDT Appointment [facility] Specialty Care [address] [place] [address] Anthony Ballesteros MD [address] [place] [address] 05/15/2025 8:30 AM SUPERINTENDENT CIRCUS Office Visit [facility] [address] [place] [address] Anthony Ballesteros MD [address] [place] [id number] documented as of this encounter Visit Diagnoses Not on filedocumented in this encounter Additional Health Concerns Assessment Noted Time PHQ-9 Depression Total Score: 3 05/25/20 20 7:02 AM SUPERINTENDENT CIRCUS documented as of this encounter Care Teams Instrument Technologist Relationship Specialty Start Date End Date Alfred Rios MD PCP - General Family Practice 04/18/15 01/27/24 Casper Dominguez MD [facility] - [address] [address] PCP - General Family Medicine 01/28/24 [place] [address] [address] [address] Assigned PCP 09/01/20 08/02/24 [place] Bridges EP [facility] [address] [place] [address] Cardiac Rehabilitation Therapist 06/29/23 06/29/24 Anthony Ballesteros MD [address] [place] [address] Assigned Heart and Vascular Provider 10/02/23 documented as of this encounter
--- OUTSIDE RECORDS SUMMARY | 2025-01-09 02:26 | XMS_ITS | Encounter Summary ---
Author Organization [place] Address [address] [place] [address] Care Team Providers Care Information Systems Security Specialist Name Role Phone Alfred Rios MD Primary Care Provider [phone] Alfred Rios MD Unavailable Murali Cadet MD Unavailable [phone] Anthony Ballesteros MD Unavailable [phone] Marilee Mathias COMMERCIAL ATTORNEY Unavailable [phone] [address] Bridges Unavailable [phone] Anthony Ballesteros MD Unavailable [phone] Natalia Forman APRN SENIOR UNDERWRITER Unavailable Unavaila ble Anthony Ballesteros MD Unavailable [phone] Casper Dominguez MD Primary Care Provider [phone] Encounter Details Date Type Department Care Team (Late st Contact Info) Description 12/13/2020 [facility] Medical Advice [address] [address] Kenzie Posada Social History Tobacco Use [...] CDT Gender Identity Male 08/26/2020 6:37 PM AS400 ANALYST Sexual Orientation Straight 08/26/2020 6: 37 PM AS400 ANALYST COVID-19 Exposure Response Date Recorded In the last month, have you been in contact with someone who was confirmed or suspected to have Coronavirus / COVID-19? No / Unsure 12/13/2020 8:48 AM CDT documented as of this encounter Plan of Treatment Upcoming Encounters Date Type Department Care Team (Late st Contact Info) Description 01/30/2025 8:30 AM CDT Appointment [facility] [address] [facility] [address] [place] [address] Anthony Ballesteros MD [address] [place], [place] [address] 05/15/2025 8:30 AM AS400 ANALYST Office Visit [facility] [place] [address] [facility] [address] [place] [address] Anthony Ballesteros MD [address] [place] [address] documented as of this encounter Visit Diagnoses Not on filedocumented in this encounter Additional Health Concerns Assessment Noted Time PHQ-9 Depression Total Score: 3 05/25/20 20 7:02 AM AS400 ANALYST documented as of this encounter Care Teams Information Systems Security Specialist Relationship Specialty Start Date End Date Alfred Rios MD PCP - General Family Practice 04/18/15 01/27/24 Casper Dominguez MD [facility] - [address] [address] PCP - General Family Medicine 01/28/24 [place] [address] [place] [address] Assigned PCP 09/01/20 08/02/24 Murali Cadet MD [address] [place] [address] Assigned Heart and Vascular Provider 09/25/20 12/21/20 Anthony Ballesteros MD [address] [place] [address] Assigned Heart and Vascular Provider 12/22/20 05/28/23 Marilee Mathias COMMERCIAL ATTORNEY [address] [place], [place] [address] Assigned Heart and Vascular Provider 05/29/23 06/11/23 Dixie Bridges EP [facility] [address] [place] [address] Cardiac Rehabilitation Therapist 06/29/23 06/29/24 Anthony Ballesteros MD [address] [place] [address] Assigned Heart and Vascular Provider 06/12/23 08/04/23 Natalia Forman APRN SENIOR UNDERWRITER Assigned Heart and Vascular Provider 08/05/23 10/01/23 Anthony Ballesteros MD [address] [place] [address] Assigned Heart and Vascular Provider 10/02/23 documented as of this encounter
--- OUTSIDE RECORDS SUMMARY | 2025-01-09 02:26 | XMS_ITS | Encounter Summary ---
Author Organization [place] Address [address] [place] [address] Care Team Providers Care Call Center Consultant Name Role Phone Alfred Rios MD Primary Care Provider [phone] Alfred Rios MD Unavailable Anthony Ballesteros MD Unavailable Marilee Mathias PRODUCTION RECOVERY OPERATOR Unavailable [phone] Dix[address] Bridges EP Unavailable [phone] Anthony Ballesteros MD Unavailable [phone] Natalia Forman APRN BARREL HEADER Unavailable Unavaila ble Anthony Ballesteros MD Unavailable [phone] Casper Dominguez MD Primary Care Provider [phone] Encounter Details Date Type Department Care Team (Late st Contact Info) Description 04/09/2023 [facility] [place] [address] [facility] [address] [place] [address] Anthony Ballesteros MD [address] [facility] [address] [place] [id number] Social History Tobacco Use Types Packs/Day Years [...] CDT Gender Identity Male 08/26/2020 6:37 PM SUPERVISOR CELL ROOM Sexual Orientation Straight 08/26/2020 6: 37 PM SUPERVISOR CELL ROOM COVID-19 Exposure Response Date Recorded In the [...] few months. He went to see a Beef Killer that stated his SOB was not due [...] Info) Description 01/30/2025 8:30 AM CDT Appointment [facility] Special[facility] Care [address] [facility] [address] [place] [address] Anthony Ballesteros MD [address] [place] [address] 05/15/2025 8:30 AM SUPERVISOR CELL ROOM Office Visit [facility] [place] [address] [facility] [address] [place] [address] Anthony Ballesteros MD [address] [place] [address] documented as of this encounter Visit Diagnoses Not on filedocumented in this encounter Additional Health Concerns Assessment Noted Time PHQ-9 Depression Total Score: 3 05/25/20 20 7:02 AM SUPERVISOR CELL ROOM documented as of this encounter Care Teams Call Center Consultant Relationship Specialty Start Date End Date Alfred Rios MD PCP - General Family Practice 04/18/15 01/27/24 Casper Dominguez MD [facility] - [address] [address] PCP - General Family Medicine 01/28/24 [place] [address] [place] [address] Assigned PCP 09/01/20 08/02/24 Anthony Ballesteros MD [address] [place] [id number] Assigned Heart and Vascular Provider 12/22/20 05/28/23 Marilee Mathias PRODUCTION RECOVERY OPERATOR [address] [place] [id number] Assigned Heart and Vascular Provider 05/29/23 06/11/23 Dixie Bridges EP [facility] [address] [place] [id number] Cardiac Rehabilitation Therapist 06/29/23 06/29/24 Anthony Ballesteros MD [address] [place] [address] Assigned Heart and Vascular Provider 06/12/23 08/04/23 Natalia Forman APRN BARREL HEADER Assigned Heart and Vascular Provider 08/05/23 10/01/23 Anthony Ballesteros MD [address] [place] [id number] Assigned Heart and Vascular Provider 10/02/23 documented as of this encounter
--- OUTSIDE RECORDS SUMMARY | 2025-01-09 02:26 | XMS_ITS | Encounter Summary ---
Author Organization [facility] Address [address] [place] [address] Care Team Providers Care Irrigation Installation Specialist Name Role Phone Alfred Rios MD Primary Care Provider [phone] Alfred Rios MD Unavailable Anthony Ballesteros MD Unavailable [phone] Alfred Rios MD Unavailable Alfred Rios MD Unavailable Murali Cadet MD Unavailable [phone] Anthony Ballesteros MD Unavailable [phone] Marilee Mathias NP Unavailable [phone] [address] Unavailable [phone] Anthony Ballesteros MD Unavailable [phone] Natalia Forman APRN MATERIALS INTERN Unavailable Unavaila ble Anthony Ballesteros MD Unavailable [phone] Casper Dominguez MD Primary Care Provider Reason for Visit * Reason Onset Date Comments Medication Refill 05/22/2019 metoprolol tar trate (LOPRESSOR) 25 MG tablet Encounter Details Date Type Department Care Team (Late st Contact Info) Description 05/20/[address], [address] [place] [address] [place] [address] [place] [address] Medication Refill (metoprolol tartrate (LOPRESSOR) 25 MG [...] CDT Gender Identity Male 08/26/2020 6:37 PM UX LEAD Sexual Orientation Straight 08/26/2020 6: 37 PM UX LEAD documented as of this encounter Miscellaneous Notes * Telephone Encounter - Regina Burrows RN - 05/22/2019 3:58 PM CST Prescription approved per [facility] Refill Protocol. Regina Burrows RN LEAD * Telephone Encounter - GiovannyVickyna - 05/22/2019 8:31 AM CST Images from [...] - Medication is active on med list LEAD documented in this encounter Plan of Treatment Upcoming Encounters Date Type Department Care Team (Late st Contact Info) Description 01/30/2025 8:[address] [facility] Specialty Care [address] [facility] [address] [place] [phone] Anthony Ballesteros MD [address] [place], [place] [address] 05/15/2025 8:30 AM UX LEAD Office Visit [facility] [place] [address] [facility] [address] [place] [phone] Anthony Ballesteros MD [address] [place] [address] documented as of this encounter Visit Diagnoses Diagnosis Essential hypertension, benign documented in this encounter Additional Health Concerns Assessment Noted Time PHQ-9 Depression Total Score: 5 04/15/20 19 7:03 AM CDT documented as of this encounter Care Teams Irrigation Installation Specialist Relationship Specialty Start Date End Date Alfred Rios MD PCP - General Family Practice 04/18/15 01/27/24 Casper Dominguez MD [facility] - [address] [address] PCP - General Family Medicine 01/28/24 [place] [address] [place] [address] Assigned PCP 03/22/15 06/01/20 Anthony Ballesteros MD [address] [place] [address] Assigned Heart and Vascular Provider 05/03/20 09/24/20 [place] [address] [place] [address] Assigned PCP 09/01/20 08/02/24 [place] [address] [place] [address] Assigned PCP 06/02/20 08/31/20 Murali Cadet MD [address] [place] [address] Assigned Heart and Vascular Provider 09/25/20 12/21/20 Anthony Ballesteros MD [address] [place] [address] Assigned Heart and Vascular Provider 12/22/20 05/28/23 Marilee Mathias MEDICAL RECORD LIBRARIANS TEACHER [address] [place], [place] [address] Assigned Heart and Vascular Provider 05/29/23 06/11/23 Dixie Bridges EP [facility] [address] [place] [address] Cardiac Rehabilitation Therapist 06/29/23 06/29/24 Anthony Ballesteros MD [address] [place] [address] Assigned Heart and Vascular Provider 06/12/23 08/04/23 Natalia Forman APRN [facility] Assigned Heart and Vascular Provider 08/05/23 10/01/23 Anthony Ballesteros MD [address] [place] [address] Assigned Heart and Vascular Provider 10/02/23 documented as of this encounter
--- OUTSIDE RECORDS SUMMARY | 2025-01-09 02:26 | XMS_ITS | Clinical Summary ---
Author Organization [facility] Address [address] [place] [address] Care Team Providers Care Bacteriologist Food Name Role Phone Casper Dominguez MD Primary Care Provider [phone] Allergies Active Allergy Reactions Criticality Noted Date Comments Clarithromycin Rash 12/28/2022 Nickel Rash Low 04/16/2015 Medications atorvastatin (LIPITOR) 80 mg tablet Take 80 mg by mouth once daily. Active ketoconazole 2% shampoo (NIZORAL) 2 % shampoo 1 APPLIC TOPICALLY 3 TIMES A WEEK 09/07/19 24 Active metoprolol tartrate (LOPRESSOR) 50 mg tablet Take 50 mg by mouth two times daily. Active naproxen (NAPROSYN) 500 mg tablet Take 500 mg by mouth every 12 hours if needed for Pain. for pain Active nitroglycerin (NITROSTAT) 0.4 mg sublingual tablet For chest pain place 1 tablet under the tongue every 5 minutes for 3 doses. If symptoms persist 5 minutes after 1st dose call 911. 06/09/20 23 Active albuterol HFA (PRO-AIR; VENTOLIN; PROVENTIL) 90 mcg/actuation inhaler Inhale 2 Puffs by mouth every 6 hours if needed. Active aspirin (ECOTRIN) 81 mg enteric coated tablet Take 81 mg by mouth once daily with a meal. Active acetaminophen (TYLENOL EXTRA STRGTH) 500 mg tabletIndications: Spinal stenosis of lumbar region with neurogenic claudication Take 2 Tablets (1,000 mg) by mouth every 6 hours. Max acetaminophen dose: 4000mg in 24 hrs. 100 Tablet 4 8:37 AM CDT 02/24/20 24 Active oxyCODONE (ROXICODONE) 5 mg immediate release tabletIndications: Spinal stenosis of lumbar region with neurogenic claudication Take 1-2 Tablets (5-10 mg) by mouth every 4 hours if needed for severe pain. 20 Tablet 4 8:37 AM CDT 02/24/20 24 Active ondansetron (ZOFRAN ODT) 4 mg disintegrating tabletIndications: Spinal stenosis of lumbar region with neurogenic claudication Place 1 Tablet (4 mg) on the tongue every 8 hours if needed for Nausea/Vomiting. 30 Tablet 02/24/20 24 Active sennosides (SENNA) 8.6 mg tabletIndications: Spinal stenosis of lumbar region with neurogenic claudication Take 1-2 Tablets (8.6-17.2 mg) by mouth 2 times daily if needed for Constipation. 100 Tablet 1 4 8:37 AM CDT 02/24/20 24 Active methocarbamoL (ROBAXIN) 500 mg tabletIndications: Spinal stenosis of lumbar region with neurogenic claudication Take 1 Tablet (500 mg) by mouth every 6 hours if needed for Muscle Spasm 30 Tablet 4 8:37 AM CDT 02/24/20 24 Active WalkerIndications: Spinal stenosis of lumbar region with neurogenic claudication Walker with front wheels for home use for 3 months. 1 Each 02/24/20 24 Active ondansetron (ZOFRAN ODT) 4 mg disintegrating tabletIndications: Acute back pain, unspecified back location, unspecified back pain laterality Place 1 Tablet (4 mg) on the tongue every 6 hours if needed for Nausea/Vomiting. 20 Tablet 02/26/20 24 Active polyethylene glycoL (MIRALAX) 17 gram/scoop powderIndications: Acute back pain, unspecified back location, unspecified back pain laterality Mix 1 scoop (17 g) in liquid then take by mouth once daily if needed for Constipation. 595 g 02/26/20 24 Active Active Problems Problem Noted Date Diagnosed Date CKD (chronic kidney disease) stage 2, GFR 60-89 ml/min 02/24/2024 Dyspnea 06/16/2023 Exertional angina 06/16/2023 Status post coronary angiogram 06/16/2023 Peripheral vascular disease 04/14/2019 Mild intermittent asthma without complication Post-traumatic osteoarthritis of left knee 09/12 Anemia due to blood loss, acute 05/30/2015 Fluid overload 05/30/2015 S/P CABG (coronary artery bypass graft) 05/25/20 Arteriosclerosis of coronary artery 05/08/2015 Essential hypertension, benign 05/08/2015 Facet arthritis of lumbar region 05/08/2015 Hyperlipidemia with target LDL less than 100 Lumbar radiculopathy 05/08/2015 Cardiac ischemia 04/24/2015 Overview (12/15/2023): Positive stress test 04/18/15 Alfred Rios MD CRF (chronic renal failure), stage 2 (mild) 01/2015 Family history of DC (myocardial infarction) 12/2014 Encounters Date Type Department Care Team Description 01/08/2025 2:30 PM CDT Ancillary Procedure [facility] [address] [place] [address] Arrived 01/08/2025 Travel from Last 3 Months Immunizations Immunization Administration Dates Next Due COVID-19 vaccine (Octopusapp NTPassenger Baggage Xpress 30mcg/0.3mL) 12YO+ ANTONETTE-SUCROSE PF, MDV 02/04/2022 COVID-19 vaccine (PollVaultr-LolaboxNTPassenger Baggage Xpress 30mcg/0.3mL) P F, MDV 05/16/2021 Influenza, High-dose Inactivated 04/11/2020 Influenza, High-dose Quadrivalent Inactivated ,04/26/2021 Pneumococcal Poly,23-Valent (Pneumovax) 07/03/20 21,06/17/2016 Pneumococcal conj 13-Valent (Prevnar 13) 015 TD, UNSPECIFIED 07/12/2011 Tdap 08/13/2022 Varicella Vaccine 03/27/2014 Zoster (Zostavax-ZVL, live) 03/27/2014 Social History Tobacco Use Types Packs/Day Years Used Date Smoking Tobacco: Former Cigarettes Q uit: 1999 Smokeless Tobacco: Never Alcohol Use Standard Drinks/Week Comments Yes 0 (1 standard drink = 0.6 oz pur e alcohol) occ Social Connections Answer Date Recorded Frequency of Communication with Friends and Fami ly Not on file 02/23/2024 Interpersonal Safety Answer Date Record ed Are you being hit, kicked, p ushed or yelled at (see row info)? No 02/26/2024 Interpersonal Safety Abuse 12 - 18 Not on file 02/26/2024 Interpersonal Safety Ambulatory Vulnerability No t on file 02/26/2024 Sex and Gender Information Value Date Recorded Sex Assigned at Not on file Legal Sex Male 6:12 PM REAL ESTATE SUBAGENT Gender Identity Not on file Sexual Orientation Not on file Obstetrics History Last Filed Vital Signs Vital Sign Reading Time Taken Comments Blood Pressure 150/72 02/26/2024 2:00 AM CDT Pulse 93 02/26/2024 2:00 AM CDT Temperature 36.8 C (98.3 F) 02/25/2024 9:34 PM CDT Respiratory Rate 18 02/25/2024 9:34 PM CDT Oxygen Saturation 96% 02/26/2024 2:00 AM CDT Inhaled Oxygen Concentration - - Weight 68 kg (150 lb) 02/25/2024 9:34 PM CDT Height 167.6 cm (5' 6) 02/25/2024 9:34 PM CDT Body Mass Index 24.21 02/25/2024 9:34 PM CDT Plan of Treatment Health Maintenance Due Date Last Done Comments Depression screening for age 12+ 1962 BMI (ht and wt on same day) for age 18+ 02/08/1968 Hepatitis C screening for age 18-79 02/08/1968 Colonoscopy through age 75 1995 Lipids for age 45-75 1995 RSV vaccine for adults or (1 - Risk 60-74 years 1-dose series) 2010 Zoster (shingles) series for age 50+ (2 of 3) 05/22/2014 03/27/2014 AAA screening age 65-74 2015 Medicare Wellness for age 65+ 2015 COVID-19 vaccine series ( season) 2024 10/21/2023, 02/04/2022, 05/16/2021, Additional history exists Influenza Vaccine (Season Ended) 2025 04/11/2020 Tetanus booster 08/13/2032 08/13/2022, 07/12/2011 Pneumococcal series for age 50+ Completed 07/03/2021, 06/17/2016, 04/16/2015 Tdap Completed 08/13/2022 Hepatitis B series for 19+ Aged Out N o longer eligible based on patient's age to complete this topic Insurance [id number] [place] [id number] BLUE CROSS MEDICARE ADVANTAGE MR MEDICARE PART A HB ONLY Advance Directives * Full Code (Latest Code Status on File) Date Activated Date Inactivated Comments 02/23/2024 5:33 PM 02/24/2024 3:16 PM Question Answer Comments Code Status Discussion: Unable to Assess Preferences, Provider to review later Care Teams Bacteriologist Food Relationship Specialty Start Date End Date Casper Dominguez MD [address] [facility] [place] [phone] PCP - General Family Practice 02/25/24
--- OUTSIDE RECORDS SUMMARY | 2025-01-09 02:26 | XMS_ITS | Encounter Summary ---
Author Organization [facility] Address [address] [facility] [place] [address] Care Team Providers Care Field Training Manager Name Role Phone Alfred Rios MD Primary Care Provider [phone] Alfred Rios MD Unavailable Anthony Ballesteros MD Unavailable [phone] Alfred Rios MD Unavailable Alfred Rios MD Unavailable Murali Cadet MD Unavailable [phone] Anthony Ballesteros MD Unavailable [phone] Marilee Mathias NP Unavailable [phone] Unavailable [phone] Anthony Ballesteros MD Unavailable [phone] Natalia Forman APRN MOVIE EXTRA Unavailable Unavaila ble Anthony Ballesteros MD Unavailable [phone] Casper Dominguez MD Primary Care Provider [phone] Reason for Visit * Reason Onset Date Comments Refill Request 11/22/2019 Encounter Details Date Type Department Care Team (Late st Contact Info) Description 11/22/2019 MyC Refill [address], [address] [place] [address] [place] [address] [address] [address] Refill Request Social History Tobacco Use Types [...] CDT Gender Identity Male 08/26/2020 6:37 PM DATA WAREHOUSING MANAGER Sexual Orientation Straight 08/26/2020 6: 37 PM DATA WAREHOUSING MANAGER documented as of this encounter Miscellaneous [...] 11/22/2019 8:52 AM CDT Prescription approved per [facility] Refill Protocol - Metoprolol Regina Burrows RN documented in this encounter Plan of Treatment Upcoming Encounters Date Type Department Care Team (Late st Contact Info) Description 01/30/2025 8:30 AM CDT Appointment [facility] Care [address] [place] [address] [address] [place] [address] Anthony Ballesteros MD [address] [place] [address] 05/15/2025 8:30 AM DATA WAREHOUSING MANAGER Office Visit [facility] [address] [place] [address] Anthony Ballesteros MD [address] [place] [address] documented as of this encounter Visit Diagnoses Diagnosis Hyperlipidemia with target LDL less than 100 Other and unspecified hyperlipidemia Essential hypertension, benign documented in this encounter Additional Health Concerns Assessment Noted Time PHQ-9 Depression Total Score: 5 04/15/20 19 7:03 AM CDT documented as of this encounter Care Teams Field Training Manager Relationship Specialty Start Date End Date Alfred Rios MD PCP - General Family Practice 04/18/15 01/27/24 Casper Dominguez MD [address] [address] PCP - General Family Medicine 01/28/24 [place] [address] [address] [address] Assigned PCP 03/22/15 06/01/20 Anthony Ballesteros MD [address] [place] [address] Assigned Heart and Vascular Provider 05/03/20 09/24/20 [place] [address] [address] [address] Assigned PCP 09/01/20 08/02/24 [place] [address] [address] [address] Assigned PCP 06/02/20 08/31/20 Murali Cadet MD [address] [place] [address] Assigned Heart and Vascular Provider 09/25/20 12/21/20 Anthony Ballesteros MD [address] [place] [address] Assigned Heart and Vascular Provider 12/22/20 05/28/23 Marilee Mathias TORPEDOMAN'S MATE [address] [place] [address] Assigned Heart and Vascular Provider 05/29/23 06/11/23 Dixie Bridges EP [facility] [address] [place] [address] Cardiac Rehabilitation Therapist 06/29/23 06/29/24 Anthony Ballesteros MD [address] [place] [address] Assigned Heart and Vascular Provider 06/12/23 08/04/23 Natalia Forman APRN MOVIE EXTRA Assigned Heart and Vascular Provider 08/05/23 10/01/23 Anthony Ballesteros MD [address] [place] [address] Assigned Heart and Vascular Provider 10/02/23 documented as of this encounter
--- OUTSIDE RECORDS SUMMARY | 2025-01-09 02:26 | XMS_ITS | Encounter Summary ---
Author Organization [place] Address [address] [place] [address] Care Team Providers Care Glass Silverer Name Role Phone Alfred Rios MD Primary Care Provider [phone] Alfred Rios MD Unavailable Anthony Ballesteros MD Unavailable [phone] Marilee Mathias FENCE MAKER Unavailable [phone] Dixie Bridges EP Unavailable [phone] Anthony Ballesteros MD Unavailable [phone] Natalia Forman APRN GROUT MACHINE TENDER Unavailable Unavaila ble Anthony Ballesteros MD Unavailable [phone] Casper Dominguez MD Primary Care Provider [phone] Encounter Details Date Type Department Care Team (Late st Contact Info) Description 04/29/2021 [facility] Medical Advice [facility] [address] [place] [address] [place] [address] [place] [address] Social History Tobacco Use Types [...] CDT Gender Identity Male 08/26/2020 6:37 PM FLOOR LAYER HELPER Sexual Orientation Straight 08/26/2020 6: 37 PM FLOOR LAYER HELPER documented as of this encounter Plan of Treatment Upcoming Encounters Date Type Department Care Team (Late st Contact Info) Description 01/30/2025 8:30 AM CDT Appointment [facility] Specialty Care [address] [facility] [address] [place] [address] Anthony Ballesteros MD [address] [place] [address] 05/15/2025 8:30 AM FLOOR LAYER HELPER Office Visit [facility] [place] [address] [facility] [address] [place] [address] Anthony Ballesteros MD [address] [place] [address] documented as of this encounter Visit Diagnoses Not on filedocumented in this encounter Additional Health Concerns Assessment Noted Time PHQ-9 Depression Total Score: 3 05/25/20 20 7:02 AM FLOOR LAYER HELPER documented as of this encounter Care Teams Glass Silverer Relationship Specialty Start Date End Date Alfred Rios MD PCP - General Family Practice 04/18/15 01/27/24 Casper Dominguez MD [facility] [address] [address] PCP - General Family Medicine 01/28/24 [place] [address] [place] [address] Assigned PCP 09/01/20 08/02/24 Anthony Ballesteros MD [address] [place] [address] Assigned Heart and Vascular Provider 12/22/20 05/28/23 Marilee Mathias FENCE MAKER [address] [place] [address] Assigned Heart and Vascular Provider 05/29/23 06/11/23 Dixie Bridges EP [facility] [address] [place] [address] Cardiac Rehabilitation Therapist 06/29/23 06/29/24 Anthony Ballesteros MD [address] [place] [address] Assigned Heart and Vascular Provider 06/12/23 08/04/23 Natalia Forman APRN GROUT MACHINE TENDER Assigned Heart and Vascular Provider 08/05/23 10/01/23 Anthony Ballesteros MD [address] [place] [address] Assigned Heart and Vascular Provider 10/02/23 documented as of this encounter
--- OUTSIDE RECORDS SUMMARY | 2025-01-09 02:26 | XMS_ITS | Encounter Summary ---
Author Organization [place] Address [address] [place] [address] Care Team Providers Care Facer Operator Name Role Phone Alfred Rios MD Primary Care Provider [phone] Alfred Rios MD Unavailable Dixie Bridges Unavailable [phone] Anthony Ballesteros MD Unavailable Natalia Forman APRN CUSTOMER EXPERIENCE PROFESSIONAL Unavailable Unavaila ble Anthony Ballesteros MD Unavailable [phone] Casper Dominguez MD Primary Care Provider Encounter Details Date Type Department Care Team (Late st Contact Info) Description 07/12/2023 [facility] Medical Advice [facility] [address] [facility] [address] [place] [address] Anthony Ballesteros MD [address] [place], [place] [address] Coronary artery disease involving wainwright coronary artery of wainwright heart, unspecified whether angina present (Primary Dx) [...] CDT Gender Identity Male 08/26/2020 6:37 PM PLASTER MECHANIC Sexual Orientation Straight 08/26/2020 6: 37 PM PLASTER MECHANIC documented as of this encounter Miscellaneous [...] the order. DR Ballesteros Updated patient via [employer] ([employer]) and medication list updated. Rx for Plavix sent to patient's pharmacy. TER MECHANIC documented in this encounter Plan of Treatment Upcoming Encounters Date Type Department Care Team (Late st Contact Info) Description 01/30/2025 8:30 AM CDT Appointment [facility] Specialty Care [address] [facility] [address] [place] [address] Anthony Ballesteros MD [address] [place] [address] 05/15/2025 8:30 AM PLASTER MECHANIC Office Visit [facility] [address] [facility] [address] [place] [address] Anthony Ballesteros MD [address] [place] [address] documented as of this encounter Visit Diagnoses Diagnosis Coronary artery disease involving wainwright coronary artery of wainwright heart, unspecified whether angina present- Primary documented in this encounter Additional Health Concerns Assessment Noted Time PHQ-9 Depression Total Score: 3 05/25/20 20 7:02 AM PLASTER MECHANIC documented as of this encounter Care Teams Facer Operator Relationship Specialty Start Date End Date Alfred Rios MD PCP - General Family Practice 04/18/15 01/27/24 Casper Dominguez MD [facility] [address] [address] PCP - General Family Medicine 01/28/24 [place] [address] [place] [address] Assigned PCP 09/01/20 08/02/24 Dixie Bridges EP [facility] [address] [place] [address] Cardiac Rehabilitation Therapist 06/29/23 06/29/24 Anthony Ballesteros MD [address] [place] [address] Assigned Heart and Vascular Provider 06/12/23 08/04/23 Natalia Forman APRN CUSTOMER EXPERIENCE PROFESSIONAL Assigned Heart and Vascular Provider 08/05/23 10/01/23 Anthony Ballesteros MD [address] [place] [id number] Assigned Heart and Vascular Provider 10/02/23 documented as of this encounter
--- OUTSIDE RECORDS SUMMARY | 2025-01-09 02:26 | XMS_ITS | Encounter Summary ---
Author Organization [place] Address [address] [place] [address] Care Team Providers Care Polishing Machine Operator Helper Name Role Phone Alfred Rios MD Primary Care Provider [phone] Alfred Rios MD Unavailable Anthony Ballesteros MD Unavailable [phone] Alfred Rios MD Unavailable Alfred Rios MD Unavailable Murali Cadet MD Unavailable [phone] Anthony Ballesteros MD Unavailable [phone] Marilee Mathias NP Unavailable [phone] Dixie Bridges Unavailable [phone] Anthony Ballesteros MD Unavailable [phone] Natalia Forman APRN VALIDATION ARCHITECT Unavailable Unavaila ble Anthony Ballesteros MD Unavailable [phone] Casper Dominguez MD Primary Care Provider [phone] Reason for Visit * Reason Comments Medication Refill Encounter Details Date Type Department Care Team (Late st Contact Info) Description 02/17/[address], [address] [place] [address] [place] [address] [place] [address] Medication Refill Social History Tobacco Use Types [...] Gender Identity Male 08/26/2020 6:37 PM SUPERVISOR PIPE JOINTS Sexual Orientation Straight 08/26/2020 6: 37 PM SUPERVISOR PIPE JOINTS documented as of this encounter Miscellaneous Notes * Telephone Encounter - Sherri Deluna RN - 02/19/2020 12:20 PM CDT Prescription approved per [facility] Refill Protocol. Sherri Deluna RN [facility] -- Triage Nurse documented in this encounter Plan of Treatment Upcoming Encounters Date Type Department Care Team (Late st Contact Info) Description 01/30/2025 8:30 AM CDT Appointment [facility] Specialty Care [address] [place] [address] [address] [place] [address] Anthony Ballesteros MD [address] [place] [address] 05/15/2025 8:30 AM SUPERVISOR PIPE JOINTS Office Visit [facility] Heart [facility] [address] [facility] [address] [place] [address] Anthony Ballesteros MD [address] [place] [id number] documented as of this encounter Visit Diagnoses Diagnosis Essential hypertension, benign documented in this encounter Additional Health Concerns Assessment Noted Time PHQ-9 Depression Total Score: 5 04/15/20 19 7:03 AM CDT documented as of this encounter Care Teams Polishing Machine Operator Helper Relationship Specialty Start Date End Date Alfred Rios MD PCP - General Family Practice 04/18/15 01/27/24 Casper Dominguez MD [address] [address] PCP - General Family Medicine 01/28/24 [place] [address] [address] [address] Assigned PCP 03/22/15 06/01/20 Anthony Ballesteros MD [address] [place] [address] Assigned Heart and Vascular Provider 05/03/20 09/24/20 [place] [address] [address] [address] Assigned PCP 09/01/20 08/02/24 [place] [address] [address] [address] Assigned PCP 06/02/20 08/31/20 Murali Cadet MD [address] [place] [address] Assigned Heart and Vascular Provider 09/25/20 12/21/20 Anthony Ballesteros MD [address] [place] [address] Assigned Heart and Vascular Provider 12/22/20 05/28/23 Marilee Mathias WEIGHER BULKER [address] [place] [address] Assigned Heart and Vascular Provider 05/29/23 06/11/23 Dixie Bridges EP [facility] [address] [place] [address] Cardiac Rehabilitation Therapist 06/29/23 06/29/24 Anthony Ballesteros MD [address] [place] [address] Assigned Heart and Vascular Provider 06/12/23 08/04/23 Natalia Forman, SPRINKLING SYSTEM INSTALLER VALIDATION ARCHITECT Assigned Heart and Vascular Provider 08/05/23 10/01/23 Anthony Ballesteros MD [address] [place] [address] Assigned Heart and Vascular Provider 10/02/23 documented as of this encounter
--- OUTSIDE RECORDS SUMMARY | 2025-01-09 02:26 | XMS_ITS | Encounter Summary ---
Author Organization [place] Address [address] [facility] [place] [address] Care Team Providers Care Substation Superintendent Name Role Phone Alfred Rios MD Primary Care Provider [phone] Alfred Rios MD Unavailable Murali Cadet MD Unavailable [phone] Anthony Ballesteros MD Unavailable [phone] Marilee Mathias VOTING MACHINE MECHANIC Unavailable [phone] Dixie Bridges Unavailable [phone] Anthony Ballesteros MD Unavailable [phone] Natalia Forman IRON PILER TRADE SHOW SPECIALIST Unavailable Unavaila ble Anthony Ballesteros MD Unavailable [phone] Casper Dominguez MD Primary Care Provider [phone] Reason for Visit * Reason Onset Date Comments Refill Request 11/05/2020 Encounter Details Date Type Department Care Team (Late st Contact Info) Description 11/05/2020 MyC Refill [address] [address] [place] [address] [address] [address] Refill Request Social History Tobacco [...] Gender Identity Male 08/26/2020 6:37 PM CORE EXTRUDER Sexual Orientation Straight 08/26/2020 6: 37 PM CORE EXTRUDER documented as of this encounter Miscellaneous Notes * Telephone Encounter - Teresita Easley RN - 11/07/2020 8:15 AM CDT Prescription approved per [facility] protocol. Teresita Easley RN on 11/07/2020 at 8:15 AM documented in this encounter Plan of Treatment Upcoming Encounters Date Type Department Care Team (Late st Contact Info) Description 01/30/2025 8:30 AM CDT Appointment [facility] Specialty Care [address] [facility] [address] [place] [address] Anthony Ballesteros MD [address] [place] [address] 05/15/2025 8:30 AM CORE EXTRUDER Office Visit [facility] [place] [address] [facility] [address] [place] [address] Anthony Ballesteros MD [address] [place] [address] documented as of this encounter Visit Diagnoses Diagnosis Essential hypertension, benign documented in this encounter Additional Health Concerns Assessment Noted Time PHQ-9 Depression Total Score: 3 05/25/20 20 7:02 AM CORE EXTRUDER documented as of this encounter Care Teams Substation Superintendent Relationship Specialty Start Date End Date Alfred Rios MD PCP - General Family Practice 04/18/15 01/27/24 Casper Dominguez MD [facility] [address] [place] [address] PCP - General Family Medicine 01/28/24 [place] [address] [place] [address] Assigned PCP 09/01/20 08/02/24 Murali Cadet MD [address] [place] [address] Assigned Heart and Vascular Provider 09/25/20 12/21/20 Anthony Ballesteros MD [address] [place] [address] Assigned Heart and Vascular Provider 12/22/20 05/28/23 Marilee Mathias NP [address] [place], [place] [address] Assigned Heart and Vascular Provider 05/29/23 06/11/23 Dixie Bridges EP [facility] [address] [place] [address] Cardiac Rehabilitation Therapist 06/29/23 06/29/24 Anthony Ballesteros MD [address] [place] [address] Assigned Heart and Vascular Provider 06/12/23 08/04/23 Natalia Forman APRN [facility] Assigned Heart and Vascular Provider 08/05/23 10/01/23 Anthony Ballesteros MD [address] [place] [address] Assigned Heart and Vascular Provider 10/02/23 documented as of this encounter
--- OUTSIDE RECORDS SUMMARY | 2025-01-09 02:26 | XMS_ITS | Encounter Summary ---
Author Organization [place] Address [address] [place] [address] Care Team Providers Care Marine Geologist Name Role Phone Alfred Rios MD Primary Care Provider [phone] Alfred Rios MD Unavailable Dixie Bridges Unavailable [phone] Natalia Forman APRN EARLY CHILDHOOD EDUCATOR AIDE Unavailable Unavaila Anthony Etienne MD Unavailable [phone] Casper Dominguez MD Primary Care Provider [phone] Encounter Details Date Type Department Care Team (Late st Contact Info) Description 09/30/2023 MyC Medical Advice [address] [address] Savage Hayes MA Social History [...] CDT Gender Identity Male 08/26/2020 6:37 PM DISHROOM ATTENDANT Sexual Orientation Straight 08/26/2020 6: 37 PM DISHROOM ATTENDANT documented as of this encounter Plan of Treatment Upcoming Encounters Date Type Department Care Team (Late st Contact Info) Description 01/30/2025 8:30 AM CDT Appointment [facility] Specialty Care [address] [place] [address] Anthony Ballesteros MD [address] [place] [id number] 05/15/2025 8:30 AM DISHROOM ATTENDANT Office Visit [facility] Heart [facility] [address] [place] [address] Anthony Ballesteros MD [address] [place] [id number] documented as of this encounter Visit Diagnoses Not on filedocumented in this encounter Additional Health Concerns Assessment Noted Time PHQ-9 Depression Total Score: 3 05/25/20 20 7:02 AM DISHROOM ATTENDANT documented as of this encounter Care Teams Marine Geologist Relationship Specialty Start Date End Date Alfred Rios MD PCP - General Family Practice 04/18/15 01/27/24 Casper Dominguez MD [facility] [address] [place] [address] PCP - General Family Medicine 01/28/24 [place] [address] [address] [address] Assigned PCP 09/01/20 08/02/24 Dixie Bridges EP [facility] [address] [place] [place] [address] Cardiac Rehabilitation Therapist 06/29/23 06/29/24 Natalia Forman APRN EARLY CHILDHOOD EDUCATOR AIDE Assigned Heart and Vascular Provider 08/05/23 10/01/23 Anthony Ballesteros MD [address] [place] [address] Assigned Heart and Vascular Provider 10/02/23 documented as of this encounter
--- OUTSIDE RECORDS SUMMARY | 2025-01-09 02:26 | XMS_ITS | Encounter Summary ---
Author Organization [place] Address [address] [place] [address] Care Team Providers Care Foreclosure Specialist Name Role Phone Alfred Rios MD Primary Care Provider [phone] Alfred Rios MD Unavailable Anthony Ballesteros MD Unavailable [phone] Marilee Mathias INSIDE PLANT SUPERVISOR Unavailable [phone] Dixie Bridges EP Unavailable [phone] Anthony Ballesteros MD Unavailable [phone] Natalia Forman APRN NAIL MAKING MACHINE SETTER Unavailable Unavaila ble Anthony Ballesteros MD Unavailable [phone] Casper Dominguez MD Primary Care Provider [phone] Encounter Details Date Type Department Care Team (Late st Contact Info) Description 08/21/2021 [facility] [address] [place] [address] [place] [address] [place] [address] Social History Tobacco Use Types [...] CDT Gender Identity Male 08/26/2020 6:37 PM MEMBER OF TECHNICAL STAFF Sexual Orientation Straight 08/26/2020 6: 37 PM MEMBER OF TECHNICAL STAFF documented as of this encounter Plan of Treatment Upcoming Encounters Date Type Department Care Team (Late st Contact Info) Description 01/30/2025 8:30 AM CDT Appointment [facility] Specialty Care [address] [facility] [address] [place] [address] Anthony Ballesteros MD [address] [place] [address] 05/15/2025 8:30 AM MEMBER OF TECHNICAL STAFF Office Visit [facility] [place] [address] [facility] [address] [place] [address] Anthony Ballesteros MD [address] [place] [id number] documented as of this encounter Visit Diagnoses Not on filedocumented in this encounter Additional Health Concerns Assessment Noted Time PHQ-9 Depression Total Score: 3 05/25/20 20 7:02 AM MEMBER OF TECHNICAL STAFF documented as of this encounter Care Teams Foreclosure Specialist Relationship Specialty Start Date End Date Alfred Rios MD PCP - General Family Practice 04/18/15 01/27/24 Casper Dominguez MD [facility] - [address] [address] PCP - General Family Medicine 01/28/24 [place] [address] [place] [address] Assigned PCP 09/01/20 08/02/24 Anthony Ballesteros MD [address] [place] [address] Assigned Heart and Vascular Provider 12/22/20 05/28/23 Marilee Mathias INSIDE PLANT SUPERVISOR [address] [place] [address] Assigned Heart and Vascular Provider 05/29/23 06/11/23 Dixie Bridges EP [facility] [address] [place] [address] Cardiac Rehabilitation Therapist 06/29/23 06/29/24 Anthony Ballesteros MD [address] [place] [address] Assigned Heart and Vascular Provider 06/12/23 08/04/23 Natalia Forman APRN NAIL MAKING MACHINE SETTER Assigned Heart and Vascular Provider 08/05/23 10/01/23 Anthony Ballesteros MD [address] [place] [address] Assigned Heart and Vascular Provider 10/02/23 documented as of this encounter
--- OUTSIDE RECORDS SUMMARY | 2025-01-09 02:26 | XMS_ITS | Encounter Summary ---
Author Organization [place] Address [address] [place] [address] Care Team Providers Care Sheeter Operator Name Role Phone Alfred Rios MD Primary Care Provider [phone] Alfred Rios MD Unavailable Murali Cadet MD Unavailable [phone] Anthony Ballesteros MD Unavailable [phone] Marilee Mathias CERT PHARMACY TECH Unavailable [phone] Dix[address] Brid[address] Unavailable [phone] Anthony Ballesteros MD Unavailable [phone] Natalia Forman TRAVEL SALES CONSULTANT RETAIL SALES PROFESSIONAL Unavailable Unavaila ble Anthony Ballesteros MD Unavailable [phone] Casper Dominguez MD Primary Care Provider [phone] Reason for Visit * Reason Comments Medication Refill Encounter Details Date Type Department Care Team (Late st Contact Info) Description 10/10/[address], [address] [place] [address] [place] [address] [facility] [place] [address] Medication Refill Social History Tobacco [...] CDT Gender Identity Male 08/26/2020 6:37 PM CHECK PROCESSOR Sexual Orientation Straight 08/26/2020 6: 37 PM CHECK PROCESSOR COVID-19 Exposure Response Date Recorded In the last month, have you been in contact with someone who was confirmed or suspected to have Coronavirus / COVID-19? No / Unsure 10/02/2020 12:50 PM CDT documented as of this encounter Miscellaneous Notes * Telephone Encounter - Sherri Deluna RN - 10/11/2020 10:51 AM CDT Prescription approved per [facility] Refill Protocol. Sherri Deluna RN [facility] -- Triage Nurse documented in this encounter Plan of Treatment Upcoming Encounters Date Type Department Care Team (Late st Contact Info) Description 01/30/2025 8:30 AM CDT Appointment [facility] Specialty Care [address] [facility] [address] [place] [address] Anthony Ballesteros MD [address] [place] [address] 05/15/2025 8:30 AM CHECK PROCESSOR Office Visit [facility] [address] [facility] [address] [place] [address] Anthony Ballesteros MD [address] [place] [id number] documented as of this encounter Visit Diagnoses Diagnosis 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 documented in this encounter Additional Health Concerns Assessment Noted Time PHQ-9 Depression Total Score: 3 05/25/20 20 7:02 AM CHECK PROCESSOR documented as of this encounter Care Teams Sheeter Operator Relationship Specialty Start Date End Date Alfred Rios MD PCP - General Family Practice 04/18/15 01/27/24 Casper Dominguez MD [facility] - [address] [address] PCP - General Family Medicine 01/28/24 [place] [address] [facility] [place] [address] Assigned PCP 09/01/20 08/02/24 Murali Cadet MD [address] [place] [address] Assigned Heart and Vascular Provider 09/25/20 12/21/20 Anthony Ballesteros MD [address] [place] [address] Assigned Heart and Vascular Provider 12/22/20 05/28/23 Marilee Mathias CERT PHARMACY TECH [address] [place] [address] Assigned Heart and Vascular Provider 05/29/23 06/11/23 Dixie Bridges EP [facility] [address] [place] [address] Cardiac Rehabilitation Therapist 06/29/23 06/29/24 Anthony Ballesteros MD [address] [place] [address] Assigned Heart and Vascular Provider 06/12/23 08/04/23 Natalia Forman APRN [facility] Assigned Heart and Vascular Provider 08/05/23 10/01/23 Anthony Ballesteros MD [address] [place] [address] Assigned Heart and Vascular Provider 10/02/23 documented as of this encounter
--- OUTSIDE RECORDS SUMMARY | 2025-01-09 02:26 | XMS_ITS | Clinical Summary ---
Author Organization [facility] Address [address] 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 Name Role Phone Anthony Ballesteros MD Unavailable [phone] Casper Dominguez MD Primary Care Provider [phone] Allergies Active Allergy Reactions Criticality Noted Date Comments Clarithromycin 12/28/2022 Nickel Rash Low 04/16/2015 Medications aspirin 81 MG chewable tabletIndications :Chronic ischemic heart disease Take 1 tablet (81 mg) by mouth daily 30 tablet 12 6 Active albuterol (PROAIR HFA/PROVENTIL HFA/VENTOLIN HFA) 108 (90 Base) MCG/ACT inhalerIndication s:Mild intermittent asthma without complication INHALE 2 PUFFS INTO THE LUNGS EVERY 6 HOURS 8.5 g 1 2 Active naproxen (NAPROSYN) 500 MG tabletIndications :Bilateral hip pain TAKE 1 TABLET (500 MG) BY MOUTH 2 TIMES DAILY NEEDED FOR MODERATE PAIN 60 tablet 1 3 Active gabapentin (NEURONTIN) 300 MG capsule Take 300 mg by mouth 2 times daily 3 Active nitroGLYcerin (NITROSTAT) 0.4 MG sublingual tabletIndications :Coronary artery disease involving [place] coronary artery of [place] heart, unspecified whether angina present For chest pain place 1 tablet under the tongue every 5 minutes for 3 doses. If symptoms persist 5 minutes after 1st dose call 911. 90 tablet 11 4 Active atorvastatin (LIPITOR) 80 MG tabletIndications :Hyperlipidemia with target LDL less than 100 Take 1 tablet (80 mg) by mouth daily. 90 tablet 2 4 Active metoprolol tartrate (LOPRESSOR) 25 MG tabletIndications :Coronary artery disease involving [place] coronary artery of [place] heart, unspecified whether angina present Take 1 tablet (25 mg) by mouth 2 times daily. 180 tablet 1 5 Active Active Problems Problem Noted Date Diagnosed Date Essential hypertension 06/16/2023 Exertional angina 06/16/2023 Dyspnea 06/16/2023 Status post coronary angiogram 06/16/2023 Coronary artery disease invo lving e[place] coronary artery of [place] heart, unspecified whether angina present 06/16/2023 Peripheral vascular disease 04/14/2019 Post-traumatic osteoarthritis of left knee 09/12 [...] of lumbar region 05/08/2015 Cardiac ischemia 04/24/2015 Overview (04/24/2015): Positive stress test 04/18/15 Alfred Rios MD CRF (chronic renal failure), stage 2 (mild) 01/[address] (myocardial infarction) 12/2014 Resolved Problems Problem Noted Date Diagnosed Date Resolved Date Bilateral low back pain without sciatica 09/04/2020 10/02/2020 Left knee pain 09/21/2018 01/25/2019 Hip pain, left 09/21/2018 01/25/2019 Hyperlipidemia with target LDL less than 130 5 05/08/2015 Overview (05/13/2015): Diagnosis updated by automated process. Provider to review and confirm. HTN, goal below 140/90 04/16/201505/08 Encounters Date Type Department Care Team Description 01/02/[address] [facility] [address] [place] [phone] Anthony Ballesteros MD Coronary artery disease involving e[place] coronary artery of [place] heart, unspecified whether angina present (Primary Dx); Hyperlipidemia with target LDL less than 100; S/P CABG (coronary artery bypass graft); CAD (coronary artery disease); Dyspnea; Exertional angina; Essential hypertension 11/05/[address] [facility] [address] [place] [address] Anthony Ballesteros MD Coronary artery disease involving e[place] coronary artery of [place] heart, unspecified whether angina present from Last 3 Months Immunizations Immunization Administration Dates Next Due COVID-19 MONOVALENT 12+ (Pfizer) 10/01/2020,0308/2020 Influenza (High Dose) Trivalent,PF (Fluzone) 07/2019 Influenza Vaccine 65+ (Fluzone HD) 04/26/2021 Pneumo Conj 13-V (2010&after) 04/16/2015 Pneumococcal 23 valent 07/03/2021,06/17/2016 Tdap (Adult) Unspecified Formulation 07/12/2011 Varicella (Varivax) 03/27/2014 Family History Medical History Relation Comments [...] 0 10/21/1964 - 10/22/1999 Smokeless Tobacco: Never Tobacco Cessation:Counseling Given: Not Answered Alcohol Use Standard Drinks/Week Comments Yes 0 [...] CDT Gender Identity Male 08/26/2020 6:37 PM BILINGUAL CASE MANAGER Sexual Orientation Straight 08/26/2020 6: 37 PM BILINGUAL CASE MANAGER Last Filed Vital Signs Vital Sign Reading Time Taken Comments Blood Pressure 110/60 01/28/2024 9:08 AM CDT Pulse 62 01/28/2024 9:08 AM CDT Temperature 36.3 C (97.4 F) 06/16/2023 8:46 AM BILINGUAL CASE MANAGER Respiratory Rate 16 06/16/2023 4:30 PM BILINGUAL CASE MANAGER Oxygen Saturation 98% 01/28/2024 9:08 AM CDT Inhaled Oxygen Concentration - - Weight 70.9 kg (156 lb 6.4 oz) 01/28/2024 9:08 A M CDT Height 167.6 cm (5' 6) 01/28/2024 9:08 AM CDT Body Mass Index 25.24 01/28/2024 9:08 AM CDT Plan of Treatment Upcoming Encounters Date Type Department Care Team (Late st Contact Info) Description 01/30/2025 8:30 AM CDT Appointment [facility] [address] [place] [phone] Anthony Ballesteros MD [address] [place] [address] 05/15/2025 8:30 AM BILINGUAL CASE MANAGER Office Visit [facility] [place] [address] [place] [phone] Anthony Ballesteros MD [address] [place] [id number] Health Maintenance Due Date Last Done Comments ASTHMA ACTION PLAN 1950 [address] COLONOGRAPHY 1950 FIT 1950 FLEX SIG 1950 sDNA (Cologuard) 1950 RSV VACCINE (1 - Risk 60-74 years 1-dose series) 2010 ZOSTER VACCINE (2 of 3) 05/22/2014 03/27/2014 ASTHMA CONTROL TEST 07/02/2021 12/31/2020, 05/24/2020, 04/14/2019 ANNUAL REVIEW OF HM ORDERS 12/31/2021 12/31/2020 FALL RISK ASSESSMENT 07/03/2022 07/03/2021, 05/24/2020, 09/12/2018, Additional history exists MEDICARE ANNUAL WELLNESS VISIT 07/03/2022 07/03/2021, 05/24/2020, 09/12/2018, Additional history exists BMP 06/16/2024 06/16/2023, 06/12, 05/24/2020, Additional history exists PHQ-2 (once per calendar year) 2024 07/30/2023, 06/09/2023, 07/03/2021, Additional history exists COVID-19 VACCINE ( season) 2025 07/29/2024, 10/21/2023, 02/04/2022, Additional history exists LIPID 01/26/2025 01/27/2024, 12/0 12/2022, 07/03/2021, Additional history exists DIABETES SCREENING 06/16/2026 06/16/2023, 1 09/03/2020, 05/24/2020, Additional history exists ADVANCE CARE PLANNING 07/07/2026 07/07/2021 , 05/27/2020, 04/16/2015 COLONOSCOPY 07/24/2026 07/24/2016, 07/24/2016 COLORECTAL CANCER SCREENING 07/24/2026 DTAP/TDAP/TD VACCINE (3 - Td or Tdap) 08/13/2032 08/13/2022, 07/12/2011, 07/12/2011 URINALYSIS Completed 05/06/2015 HEPATITIS C SCREENING Completed 06/17/2016 AORTIC ANEURYSM SCREENING (SYSTEM ASSIGNED) Completed 06/25/2016 PNEUMOCOCCAL VACCINE 50+ YEARS Completed 07/03/2021, 06/17/2016, 04/16/2015 INFLUENZA VACCINE Completed 07/29/2024, , 04/26/2021, Additional history exists HPV VACCINE Aged Out No longer eligi ble based on patient's age to complete this topic MENINGITIS VACCINE Aged Out No longer eligible based on patient's age to complete this topic MICROALBUMIN Discontinued Medical Devices Implanted Type Area Bar Turner Device Identifier Shelf Expiration Date Model / Serial / Lot Stent Coronary Brendan Litzy Xd Mr Us [id number] - [id number] Implanted:Qty: 1 on 06/16/2023 at [facility] Stent Drug Eluting (BRENDAN) [employer] 09/28/2024 [id number] / / [id number] Procedures Procedure Name Priority Date/Time Associated Diagnosis Comments LIPID PROFILE Routine 01/27/2024 8:35 AM CDT Hyperlipidemia with target LDL less than 100 BASIC METABOLIC PANEL STAT 06/16/2023 9:09 AM BILINGUAL CASE MANAGER COLONOSCOPY Routine 07/24/2016 11:06 AM BILINGUAL CASE MANAGER US ABDOMINAL AORTA Routine 06/25/2016 10 :30 AM BILINGUAL CASE MANAGER Personal history of tobacco use, presenting hazards to health HEPATITIS C SCREEN REFLEX TO HCV RNA QUANT AND GENOTYPE Routine 06/17/2016 9:23 AM BILINGUAL CASE MANAGER Need for hepatitis C screening test UA MACROSCOPIC WITH REFLEX TO MICRO AND CULTURE Routine 05/06/2015 2:35 PM CDT Status post coronary angiogram from Last 3 Months or Most Recently Relevant to Health Maintenance Results * Lipid Profile (01/27/2024 8:35 AM CDT) Cholesterol 115 <200 mg/dL 01/27/2024 5:53 PM CDT [facility] Triglycerides 41 <150 mg/dL 01/27/2024 5:53 PM CDT [facility] Direct Measure HDL 53 >=40 mg/dL 2023 5:53 PM CDT [facility] LDL Cholesterol Calculated 54 <=100 mg/dL 01/27/2024 5:53 PM CDT [facility] Non HDL Cholesterol 62 <130 mg/dL 01/27/2024 5:53 PM CDT [facility] Patient Fasting > 8hrs? Yes 01/27/2024 5:53 PM CDT [facility] Blood BLOOD SPECIMEN / Unknown Venipuncture / Unknown 01/27/2024 8:35 AM CDT 01/27/2024 8:35 AM CDT Narrative LABORATORY - 01/27/2024 5:53 PM CDT Cholesterol Desirable: <200 mg/dL Triglycerides Normal: Less than 150 mg/dL Borderline High: 150-199 mg/dL High: 200-499 mg/dL Very High: Greater than or equal to 500 mg/dL Direct Measure HDL Female: Greater than or equal to 50 mg/dL Male: Greater than or equal to 40 mg/dL LDL Cholesterol Desirable: <100mg/dL Above Desirable: 100-129 mg/dL Borderline High: 130-159 mg/dL High: 160-189 mg/dL Very High: >= 190 mg/dL Non HDL Cholesterol Desirable: 130 mg/dL Above Desirable: 130-159 mg/dL Borderline High: 160-189 mg/dL High: 190-219 mg/dL Very High: Greater than or equal to 220 mg/dL us Natalia Forman APRN MANAGER STRATEGIC MARKETING LAB - BLOOD ORDERABLES Fi nal Result U [facility] [address], [address] [place] [phone] * (ABNORMAL) Basic metabolic panel (06/16/2023 9:[address] [facility]) [facility] Sodium 142 135 - 145 mmol/L 06/16/2023 9:35 AM [facility] Comment:Reference intervals for this test were updated on 04/06/2023 to more accurately reflect our healthy population. There may be differences in the flagging of prior results with similar values performed with this method. Interpretation of those prior results can be made in the context of the updated reference intervals. Potassium 4.3 3.4 - 5.3 mmol/L 06/16/2023 9:35 AM [facility] Chloride 107 98 - 107 mmol/L 06/16/2023 9:35 AM [facility] Carbon Dioxide (CO2) 24 22 - 29 mmol/L 06/16/2023 9:35 AM [facility] Anion Gap 11 7 - 15 mmol/L 06/16/2023 9:35 AM [facility] Urea Nitrogen 20.3 8.0 - 23.0 mg/dL 06/16/2023 9:35 AM BILINGUAL CASE MANAGER LABORATORY Creatinine 1.09 0.67 - 1.17 mg/dL 06/16/2023 9:35 AM BILINGUAL CASE MANAGER LABORATORY GFR Estimate 72 >60 mL/min/1. 73m2 06/16/2023 9:35 AM BILINGUAL CASE MANAGER LABORATORY Calcium 9.2 8.8 - 10.2 mg/dL 06/16/2023 9:35 AM BILINGUAL CASE MANAGER LABORATORY Glucose 113(H) 70 - 99 mg/dL 06/16/2023 9:35 AM BILINGUAL CASE MANAGER LABORATORY Blood STRUCTURE OF LEFT UPPER LIMB / Unknown Venipuncture / Unknown 06/16/2023 9:09 AM BILINGUAL CASE MANAGER 06/16/2023 9:14 AM BILINGUAL CASE MANAGER us Anthony Ballesteros MD LAB - BLOOD ORDERABLES Fi nal Result LABORATORY [facility] [address], [address] [place] [address] [phone] * COLONOSCOPY (07/24/2016 11:06 AM BILINGUAL CASE MANAGER) COLONOSCOPY [facility] Patient Name: Anthony Chun Procedure Date: 07/24/2016 11:06 AM Date of : 1950 Admit Type: Outpatient Age: 66 Gender: Male Attending MD: Joi Ludwig MD Total Sedation Time: Instrument Name: 124 Procedure: Colonoscopy Indications: Screening for colorectal malignant neoplasm Providers: Joi Ludwig MD (Doctor) Referring MD: Alfred Rios MD (Referring MD) Medicines: Midazolam 2 mg IV, Fentanyl 100 micrograms IV Complications: No immediate complications. Procedure: Pre-Anesthesia Assessment: - Prior to the procedure, a History and Physical was performed, and patient medications and allergies were reviewed. The patient is competent. The risks and benefits of the procedure and the sedation options and risks were discussed with the patient. All questions were answered and informed consent was obtained. Patient identification and proposed procedure were verified by the physician and the nurse in the procedure room. Mental Status Examination: alert and oriented. Airway Examination: normal oropharyngeal airway and neck mobility. Respiratory Examination: clear to auscultation. CV Examination: normal. Prophylactic Antibiotics: The patient does not require prophylactic antibiotics. Prior Anticoagulants: The patient has taken no previous anticoagulant or antiplatelet agents. ASA Grade Assessment: II - A patient with mild systemic disease. After reviewing the risks and benefits, the patient was deemed in satisfactory condition to undergo the procedure. The anesthesia plan was to use moderate sedation / analgesia (conscious sedation). Immediately prior to administration of medications, the patient was re-assessed for adequacy to receive sedatives. The heart rate, respiratory rate, oxygen saturations, blood pressure, adequacy of pulmonary ventilation, and response to care were monitored throughout the procedure. The physical status of the patient was re-assessed after the procedure. After obtaining informed consent, the colonoscope was passed under direct vision. Throughout the procedure, the patient's blood pressure, pulse, and oxygen saturations were monitored continuously. The Olympus Adult Colonoscope Model #CF-PK135S, [place]#124, SN#[id number] was introduced through the anus and advanced to the cecum, identified by appendiceal orifice and ileocecal valve. The colonoscopy was performed without difficulty. The patient tolerated the procedure well. The quality of the bowel preparation was good. Findings: External hemorrhoids were found during retroflexion and were small. The exam was otherwise without abnormality. Impression: - External hemorrhoids. - The examination was otherwise normal. Recommendation: - Repeat colonoscopy in 10 years for screening purposes. Electronically signed by iJe Ludwig M.D. _ Joi Ludwig MD 07/24/2016 11:46 AM I was physically present for the entire viewing portion of the exam. Joi Ludwig MD Number of Addenda: 0 Note Initiated On: 07/24/2016 11:06 AM Procedure Date: 07/24/2016 11:06:10 AM Scope Withdrawal Time: 0 hours 12 minutes 14 seconds Total Procedure Duration: 0 hours 16 minutes 42 seconds Estimated Blood Loss: Scope In: 11:24:17 AM Scope Out: 11:40:59 AM RADIOLOGY RESULTS 07/24/2016 11:0 6 AM BILINGUAL CASE MANAGER us Alfred Rios MD PROCEDURES Final Result RADIOLOGY RESULTS * US abdominal aorta limited (06/25/2016 10:30 AM BILINGUAL CASE MANAGER) Anatomical Region Laterality Modality Abdomen/Pelvis Ultrasound Impressions 06/25/2016 12:30 PM BILINGUAL CASE MANAGER IMPRESSION: No evidence of abdominal aortic aneurysm. JONES GIBSON MD Narrative 06/25/2016 12:30 PM BILINGUAL CASE MANAGER ULTRASOUND ABDOMINAL AORTA LIMITED 06/25/2016 10:30 AM [...] MD Alfred Rios MD IMG US ORDERABLES Final Result * Hepatitis C Screen Reflex to HCV RNA Quant and Genotype (06/17/2016 9:23 AM BILINGUAL CASE MANAGER) [facility] Hepatitis C Antibody Nonreactive Assay performance characteristics have not been established for newborns, infants, and children NR [facility] Blood specimen (specimen) 06/17/2016 9:23 AM BILINGUAL CASE MANAGER 06/17/2016 9:24 AM BILINGUAL CASE MANAGER Alfred iRos MD LAB - BLOOD ORDERABLES Final Res ult [facility] [address] [place] [address] * (ABNORMAL) UA reflex to Microscopic and Culture (05/06/2015 2:35 PM CDT) Color Urine Light Yellow [facility] Appearance Urine Clear [facility] Glucose Urine Negative NEG mg/dL [facility] Bilirubin Urine Negative NEG [facility] Ketones Urine 5(A) NEG mg/dL [facility] Specific [place] Urine 1.039(H) 1.003 - 1.035 [facility] Blood Urine Negative NEG [facility] pH Urine 6.5 5.0 - 7.0 pH [facility] Protein Albumin Urine Negative NEG mg/dL [facility] Urobilinogen mg/dL Normal 0.0 - 2.0 mg/dL [facility] Nitrite Urine Negative NEG [facility] Leukocyte Esterase Urine Negative NEG [facility] Source Midstream Urine [facility] Urine specimen (specimen) 05/06/2015 2:35 PM CDT 05/06/2015 2:49 PM CDT José Miguel Mcclelland PA-C LAB - URINE ORDERABLES F inal Result [facility] [address] [place] [address], [facility] [phone] from Last 3 Months or Most Recently Relevant to Health Maintenance Insurance [place] [id number] [facility] MEDICARE ADVANTAGE [facility] MEDICARE ADVANTAGE [place] [id number] Advance Directives For more information, please contact: [phone] Documents on File Type Date Recorded Patient Express Manager Expl anation Advance Directives and Living Will 05/28/2015 Health Care Directiv e 02/26/05 * Full Code (Latest Code Status on File) Date Activated Date Inactivated Comments 05/25/2015 9:49 AM 06/16/2023 8:33 AM * Full Code Date Activated Date Inactivated Comments 05/22/2015 12:15 PM 05/25/2015 9:[address] Mechanical Engineer Relationship Specialty Start Date End Date Casper Dominguez MD [facility] [address] [place] [address] PCP - General Family Medicine 01/28/24 Anthony Ballesteros MD [address] [place] [address] Assigned Heart and Vascular Provider 10/02/23
== END 2025-01-08 14:03 | disposition home or self-care (01) ==
LOC: US 14:03
PROVIDERS: PCP Family Medicine; Visit Provider Podiatrist
DX: I73.9 Peripheral vascular disease, unspecified (principal)
CPT/HCPCS: 93924

== ENCOUNTER 2025-04-16 20:48 | Outpatient (CLI) | payer MEDICARE, SELFPAY ==
--- NOTE | 2025-05-01 12:09 | W.PM.SLEEP ---
Sleep Study Details Details Interpreting Provider: Diamond Date of Sleep Study: 04/16/25 Sleep Study Details: STUDY TYPE:? Hospital-based, attended, CPAP titration ? BMI:? 25.5 ORDERING PROVIDER:? Diamond INDICATION:? Previous positive sleep study ? SLEEP SUMMARY:? 319.5 minutes sleep time RESPIRATORY SUMMARY:? Overall AHI for this study is 0.9 per CMS guideline, 6.4 per rule 1A Patient was titrated for with CPAP at pressures of 5 and 6 both included REM stage sleep but always in the lateral position. AHI was well controlled at both pressures. PERIODIC LIMB MOVEMENTS OF SLEEP:? None CARDIAC:? PACs noted. A 12nd run of V-tach was also noted. The patient was asymptomatic during this. Primary physician has been notified IMPRESSION:? Mixed central and obstructive sleep apnea. A 12nd run of V-tach was noted. The patient was successfully titrated with final settings of EPAP 6 minimum pressure support 3 maximum pressure support of 15 RECOMMENDATION: Initiate above settings with an ASV machine.
== END 2025-04-16 20:49 | disposition home or self-care (01) ==
LOC: SLEEP 20:48
PROVIDERS: PCP Family Medicine; Visit Provider Physician Assistant
DX: G47.33 Obstructive sleep apnea (adult) (pediatric) (principal); G47.31 Primary central sleep apnea
CPT/HCPCS: 95811